=== PATIENT | female | born 1950 | race Caucasian/White ===

== ENCOUNTER → 2017-03-21 | Outpatient (CLI) | payer OTHER, BC ==
[~2017-03-21] MED LIST: ALBUAER19 INH; ALFA650T2 PO; ASCO100061 PO; ASMANEX 220 MCG INH; ASPCH81X PO; ATEN-173 PO; CETI10TA84 PO; CPR500 PO; ECHINACEA PO; FLUT1INH PO; GARL10007 PO; IPRASOL4 INH; LORA-741 PO; MONT1TAB5 PO; MULTTAB58 PO; ONDA4TAB46 PO; PRED-301 PO; RIVA1TAB4 PO; XRL15 PO; [UNRECOGNIZED DRUG - OTHER] PO
--- NOTE | 2017-03-21 12:10 | DIAGNOSTIC IMAGING REPORT ---
CHEST 2 VIEWS ROUTINE CLINICAL HISTORY: R50.9 [id number] Cough COMPARISON STUDY: 03/10/2015 FINDINGS: The cardiac and mediastinal contours remain stable. There is a calcified granuloma within the left midlung zone. There is chronic blunting of the right lateral costophrenic angle. This remains unchanged and likely represents scar. There is no failure. There are no pleural effusions.[ IMPRESSION: No active disease in the chest. Electronically signed by: Miguel Angel Garcia M.D. 03/21/2017 12:08 PM Dictated Date/Time: 03/21/2017 12:08 PM
== END | disposition home or self-care (01) ==
LOC: C.LABBC 11:50
PROVIDERS: ATTEND Internal Medicine
DX: R50.9 Fever, unspecified (principal); R05 Cough

== ENCOUNTER → 2017-04-24 | Outpatient (CLI) | payer OTHER, BC ==
[~2017-04-24] MED LIST changes: -FLUT1INH PO; -PRED-301 PO; -RIVA1TAB4 PO; -XRL15 PO
[2017-04-24 15:40] LABS: HEMATOCRIT 35.3 % (37-47); MEAN CELL VOLUME 98.6 fL (80-100); MEAN CORPUSCULAR HEMOGLOBIN 32.7 pg (25-34); MEAN CORPUSCULAR HGB CONC 33.1 g/dl (32-36); MEAN PLATELET VOLUME 10.6 fL (7.4-10.4); PLATELET COUNT 174 K/uL (130-400); RED BLOOD COUNT 3.58 M/uL (4.2-5.4); WHITE BLOOD COUNT 53.88 K/uL (4.8-10.8)
[2017-04-24 16:32] LABS: COMPLETE YES; LYMPH ABS # 50.16 K/uL (1.2-3.4); LYMPHOCYTE % 93.1 %; NEUTROPHILS % 2.6 %
[2017-04-24 16:42] LABS: IMMUNOGLOBULN A 93.5 mg/dL (70-400); IMMUNOGLOBULN M 13.2 mg/dL (40-230); SMUDGE CELLS PRESENT
--- NOTE | 2017-04-29 09:45 | CODING QUERY MEDICAL NECESSITY ---
SUPPORTING DIAGNOSIS NEEDED Dr. Payne, A supporting diagnosis is required for the test/procedure performed on this patient in order for us to be reimbursed by the patient's insurance. Please provide a supporting diagnosis for the following test/procedure listed below next to the test name along with your signature. *If there is no additional diagnosis for this patient that would support the following test/procedure please document that below next to the test/procedure. Test(s)/Procedure(s) that require a supporting diagnosis: * ([id number]) IMMUNOGLOBULIN E DIAGNOSIS: DATE OF SERVICE: 04/24/17 Provider Signature: Date: Thank you [facility] Information Management Once completed, please kindly fax back to [phone] For questions please call [phone]
== END | disposition home or self-care (01) ==
LOC: C.LAB1850 13:29
PROVIDERS: ATTEND Internal Medicine Pulmonary Disease
DX: C91.10 Chronic lymphocytic leukemia of B-cell type not having achieved remission (principal); R91.1 Solitary pulmonary nodule; R05 Cough; J45.909 Unspecified asthma, uncomplicated; M19.90 Unspecified osteoarthritis, unspecified site; D80.3 Selective deficiency of immunoglobulin G [IgG] subclasses

== ENCOUNTER → 2017-05-02 | Outpatient (CLI) | payer OTHER, BC ==
[2017-05-02 10:18] LABS: ALT/SGPT 30 U/L (12-78); AST/SGOT 20 U/L (15-37); BLOOD UREA NITROGEN 7 mg/dl (7-18); BUN/CREATININE RATIO 12.3 (10-20); CALCIUM 9.4 mg/dl (8.5-10.1); CARBON DIOXIDE 31 mmol/L (21-32); CHLORIDE 97 mmol/L (98-107); CREATININE 0.55 mg/dl (0.60-1.20); GLUCOSE 80 mg/dl (70-99); POTASSIUM 4.2 mmol/L (3.5-5.1); SODIUM 133 mmol/L (136-145)
[2017-05-02 10:29] LABS: ALB/GLOB RATIO 1.7 (0.9-2); ALKALINE PHOSPHATASE 63 U/L (45-117); CHOLESTEROL 193 mg/dl (0-200); CHOLESTEROL/HDL RATIO 2.2; HDL CHOLESTEROL 89 mg/dl; LDL CHOLESTEROL CALCULATED 95 mg/dl; TRIGLYCERIDES 44 mg/dl (0-150); VERY LOW DENSITY LIPOPROT CALC 9 mg/dl
== END | disposition home or self-care (01) ==
LOC: C.LAB 08:53
PROVIDERS: ATTEND Internal Medicine
DX: M85.80 Other specified disorders of bone density and structure, unspecified site (principal)

== ENCOUNTER → 2017-05-13 | Outpatient (CLI) | payer OTHER, BC | END | disposition home or self-care (01) | LOC: C.MAMM 08:25 | PROVIDERS: ATTEND Internal Medicine | DX: M85.89 Other specified disorders of bone density and structure, multiple sites (principal) ==

== ENCOUNTER → 2017-06-25 | Outpatient (CLI) | payer OTHER, BC ==
[2017-06-25 12:45] LABS: PROTHROMBIN TIME (PATIENT) 10.8 SECONDS (9.0-12.0)
[2017-06-25 12:54] LABS: ALB/GLOB RATIO 1.3 (0.9-2); ALKALINE PHOSPHATASE 50 U/L (45-117); ALT/SGPT 21 U/L (12-78); AST/SGOT 18 U/L (15-37); BLOOD UREA NITROGEN 8 mg/dl (7-18); CALCIUM 8.6 mg/dl (8.5-10.1); CARBON DIOXIDE 29 mmol/L (21-32); CHLORIDE 96 mmol/L (98-107); CREATININE 0.53 mg/dl (0.60-1.20); GLUCOSE 58 mg/dl (70-99); SODIUM 130 mmol/L (136-145)
[2017-06-25 13:22] LABS: MEAN CELL VOLUME 98.5 fL (80-100); MEAN CORPUSCULAR HEMOGLOBIN 33.5 pg (25-34); MEAN CORPUSCULAR HGB CONC 34.1 g/dl (32-36); MEAN PLATELET VOLUME 10.3 fL (7.4-10.4); PLATELET COUNT 167 K/uL (130-400); RED BLOOD COUNT 3.25 M/uL (4.2-5.4); WHITE BLOOD COUNT 40.24 K/uL (4.8-10.8)
[2017-06-25 13:29] LABS: BASO % 0.1 %; BASO ABS # 0.05 K/uL (0-0.2); COMPLETE YES; EOS % 0.2 %; LYMPH % 96.8 %; LYMPH ABS # 38.96 K/uL (1.2-3.4); NEUT % 2.9 %
== END | disposition home or self-care (01) ==
LOC: C.LAB 09:49
PROVIDERS: ATTEND Internal Medicine Pulmonary Disease
DX: R91.1 Solitary pulmonary nodule (principal)

== ENCOUNTER → 2017-06-30 | Outpatient (CLI) | payer OTHER, BC ==
[~2017-06-30] MED LIST changes: +OPTIRAY 320 IV PRN
--- NOTE | 2017-06-30 15:35 | DIAGNOSTIC IMAGING REPORT ---
CT SCAN OF THE CHEST WITH IV CONTRAST CLINICAL HISTORY: Pulmonary nodule. Dyspnea. COMPARISON STUDY: Chest CT scan dated 07/08/2013 and 12/19/2006. Chest x-ray dated 03/21/2017. TECHNIQUE: Following the IV administration of 94 cc of Optiray 320, CT scan of the thorax was performed from the thoracic inlet to the upper abdomen. Images are reviewed in the axial, sagittal, and coronal planes. IV contrast was administered without complication. A dose lowering technique was utilized adhering to the principles of ALARA. CT DOSE: 185.25 mGycm FINDINGS: Thyroid: Imaged portions of the thyroid gland are normal in size and attenuation. Thoracic aorta: The thoracic aorta is normal in caliber and demonstrates standard 3-vessel arch anatomy. No dissection is seen. Pulmonary vasculature: The pulmonary trunk is normal in caliber. There are no filling defects identified in the central pulmonary vessels to indicate pulmonary embolus. Note that this examination was not protocoled for evaluation of the pulmonary arteries. Heart: The heart is enlarged and there is trace pericardial effusion. There are coronary artery calcifications. Lungs and pleural spaces: There is consolidative change seen within the right middle lobe on image #166. The lungs are otherwise clear. No pleural effusion is identified. A calcified granuloma is seen in the left lower lobe. The trachea and central airways Are clear. Mediastinum: There are scattered subcentimeter mediastinal lymph nodes. These are not pathologically enlarged by size criteria. There is a calcified subcarinal node. Rose: Prominent right hilar nodes measure 11 mm in short axis.. There are calcified left hilar nodes. Axillae: There are shotty axillary lymph nodes which measure up to 11 mm in short axis. These are similar to the 2013 examination. Upper abdomen: Partially visualized upper abdominal viscera is within normal limits. Skeletal structures: The skeletal structures are osteopenic. Degenerative change is noted throughout the thoracic spine. No lytic or blastic bony lesions are seen. Postoperative change is noted in the right shoulder. IMPRESSION: 1. There is a small region of patchy airspace consolidation identified in the right middle lobe, likely representing an infectious/inflammatory pneumonitis. Precautionary 3 month follow-up examination is recommended to document resolution. 2. The lungs are otherwise clear. No pleural effusion is identified. 3. Cardiomegaly. 4. Additional findings as above. Electronically signed by: Henri Barrera M.D. 06/30/2017 3:34 PM Dictated Date/Time: 06/30/2017 3:26 PM
== END | disposition home or self-care (01) ==
LOC: C.CTS 15:09
PROVIDERS: ATTEND Internal Medicine Pulmonary Disease
DX: R91.1 Solitary pulmonary nodule (principal); I51.7 Cardiomegaly; R91.8 Other nonspecific abnormal finding of lung field

== ENCOUNTER → 2017-07-01 | Day surgery (SDC) | payer OTHER, BC ==
[~2017-07-01] VITALS: Ht 157.5 cm; Wt 64.0 kg
[2017-07-01] VITALS (14 sets, daily range): BP systolic 109–160; BP diastolic 50–84; PULSE 52–65; TEMP 36.4; O2SAT 93–100; Ht 157.5 cm; Wt 64.0 kg
[~2017-07-01] MED LIST changes: +FENTANYL CITRATE INJ 50 MCG/1 ML 2 ML VIAL IV ONE; +LORAZEPAM 2 MG/ML 1 ML VIAL ONE; +NURSING VERBAL MED ORDER ONE; -OPTIRAY 320 IV PRN
--- NOTE | 2017-07-01 06:50 | History and Physical ---
History & Physical Date Jul 01, 2017. Chief Complaint Acute onset upper respiratory type infections in immuno incompetent patient with new CT changes/right middle lobe infiltrate History of Present Illness The patient is a 66 year old female with complaints of Acute onset upper respiratory type infections in immuno incompetent patient with new CT changes/ right middle lobe infiltrate 66-year-old female patient with a history of CLL, GERD and asthma. 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 Avalos who wishes to start her and has scheduled her for an IVIG infusion. She is in agreement as IM to start this therapy. Just this past week she developed an upper respiratory infection and feels tight in her chest. She feels she has a great deal of mucus plugging. She has not responded to antibiotic and prednisone here nor to the use of her nebulizer with DuoNeb solution and the Asmanex twist haler. Chest x-ray on 03/21/2017 showed no acute infiltrate PFTs on 05/22/2017 show moderate obstruction and definite decrease in patient's lung function compared to 2 years ago. The FVC is 1.73 L or 66% of predicted with an FEV1 1.31 L or 63% of predicted with a ratio of 76%. Good response to bronchodilator was shown. Total lung capacity was borderline forced vital capacity was 2.42 L or 93% of predicted with an FEV1 of 1.91 L 92% predicted in June 2015. Past Medical/Surgical History Active Problems 1. Allergic rhinitis 2. Arthritis 3. Asthma 4. Chronic lymphocytic leukemia 5. GERD without esophagitis 6. Hypertension 7. IgG deficiency 8. IgM deficiency 9. Osteopenia 10. 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 Endometriosis 13. Herpes zoster 14. Hypertrophy of breast 15. History of Shiga toxin-producing Escherichia Surgical History 1. History of Appendectomy 2. History of Breast Surgery Reduction Procedure Bilateral 3. History of Breast Surgery Reduction Procedure Bilateral 4. History of Foot Surgery 5. History of Hallux Valgus (Bunion) Correction 6. History of Laparoscopy (Diagnostic) 7. History of Tonsillectomy 8. History of Vaginal Hysterectomy Family History 1. Family history of Colon Cancer 2. Family history of Uterine Cancer 3. Family history of Prostate Cancer 4. Family history of Colon Cancer 5. Denied: Family history of Breast Cancer 6. 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 Asmanex 60 Metered Doses 220 MCG/INH Inhalation Aerosol Powder Breath Activated; 2. Montelukast Sodium 10 MG Oral Tablet; TAKE ONE TABLET BY MOUTH EVERY OTHER 3. PredniSONE 10 MG Oral Tablet; taper 4. Ventolin HFA 108 (90 Base) MCG/ACT Inhalation Aerosol Solution; inhale 2 puffs every 6 5. Atenolol 25 MG Oral Tablet; Take 1 tablet daily Requested for: [id number]; Last 6. Indapamide 1.25 MG Oral Tablet; TAKE 1 TABLET EVERY AM; 7. LORazepam 0.5 MG Oral Tablet; TAKE 1 TABLET Bedtime PRN; 8. Ballard 650 MG Oral Tablet; TAKE 3 TABLETS DAILY; 9. Aspirin Low Dose 81 MG TABS; TAKE 1 TABLET Every other day; 10. CVS Vitamin C 1000 MG Oral Tablet; TAKE 30 TABLET Daily TDD:30,000; 11. DuoNeb SOLN; 12. Garlic 1000 MG Oral Capsule; TAKE 1 CAPSULE Daily; 13. Melatonin 3 MG Oral Capsule; TAKE 1 CAPSULE AT BEDTIME NEEDED; 14. Posture-D Calcium/Magnesium [phone] Oral Tablet; TAKE 3 TABLET Daily; 15. Probiotic Oral Capsule; Take 1 capsule PO daily; 16. Vitamin D3 5000 UNIT Oral Tablet; Take 1 tablet daily; 17. Vitamin E 400 UNIT Oral Tablet; TAKE 1 TABLET DAILY; 18. Zyrtec 10 MG TABS; TAKE 1 TABLET DAILY; Allergies 1. Chlorthalidone TABS 2. Erythromycin TABS 3. Chocolate 4. Dairy 5. Eggs 6. Grains Additional History Hepatic Disease: No Endocrine Disorder: No Kidney Disease: No Hypertension: Yes Heart Disease: No Bleeding Tendencies: No Infectious Diseases: No Allergies Coded Allergies: Molds & Smuts (Verified Allergy, Severe, SOB, itchy, watery eyes, 02/22/14) Cat Dander (Verified Allergy, Mild, itchy, watery eyes, 02/22/14) Chlorthalidone (Verified Allergy, Unknown, Dizzy, light headed, 03/10/15) Erythromycin (Verified Adverse Reaction, Intermediate, NAUSEA / VOMITING, 02/22/14) Lactose Intolerance (Verified Adverse Reaction, Unknown, GI SYMPTOMS, 02/22) Home Medications Scheduled Ballard (Ballard), 3 TABLETS PO DAILY Ascorbic Acid (Ascorbic Acid), 30,000 MG PO DAILY Aspirin (Aspirin Chewable), 81 MG PO QOD Atenolol (Tenormin), 25 MG PO DAILY Cetirizine (Zyrtec), 10 MG PO QOD Ciprofloxacin (Ciprofloxacin HCl), 500 MG PO Q12 Garlic (Garlic), 1,000 MG PO DAILY Montelukast Sodium (Montelukast Sodium), 10 MG PO Q2D Multiple Vitamin (Multivitamin), 1 TAB PO DAILY [Asmanex 220 Mcg], 1 PUFFS INH BID [Calcimate Plus], 2,400 MG PO DAILY [Echinacea], 750 MG PO DAILY Scheduled PRN Albuterol Inhaler (Ventolin Inhaler), 2 PUFFS INH Q6 PRN Ipratropium-Albuterol (Duoneb), 1 TREATMENT INH Q4H PRN for CONGESTION Lorazepam (Ativan), 0.5 MG PO HS PRN for Sleep Ondansetron Hcl (Zofran), 4 MG PO Q6H PRN for Nausea Physical Examination Skin: warm/dry, no rash Eyes: normal inspection, EOMI, sclerae normal ENT: normal ENT inspection, pharynx normal Head: normocephalic, atraumatic Neck: supple, no adenopathy, trachea midline Respiratory/Chest: lungs clear, normal breath sounds, no respiratory distress Cardiovascular: regular rate, rhythm, no edema, no murmur Abdomen / GI: normal bowel sounds, non tender Back: normal inspection Extremities: normal inspection, normal range of motion Neurologic/Psych: no motor/sensory deficits, alert, normal reflexes, oriented x 3 Diagnosis Immuno incompetent patient with acute URI and new onset pulmonary nodule Plan of Treatment Flexible bronchoscopy with bronchial washing and possible intrabronchial forcep biopsy cryoprobe biopsy
--- NOTE | 2017-07-01 09:19 | History & Physical Bridge Note ---
H&P Re-Evaluation Bridge Note: I have examined the patient, reviewed the History & Physical and in the interval since the performance of the History & Physical I have noted the following changes of clinical significance: No changes noted
--- NOTE | 2017-07-01 09:19 | Procedure Note ---
Pre-Mod Sedation Assessment General Date of Moderate Sedation: Jul 01, 2017. Vital Signs: Vital Signs Past 12 Hours Date Time Temp Pulse Resp B/P (MAP) Pulse Ox O2 Delivery O2 Flow Rate FiO2 07/01/17 08:28 36.4 60 18 124/62 (82) 98 Room Air Review Cardiovascular: regular rate, rhythm, no edema, no gallop, no JVD, no murmur, normal peripheral pulses Abdomen: normal bowel sounds, non tender, soft, no organomegaly, no pulsatile mass Lungs: chest non-tender, lungs clear, normal breath sounds, no respiratory distress, no accessory muscle use Airway Class: II Pre-Sedation Airway Assessment Oral Cavity: WNL Able to Visualize Vocal Cords: Yes Short Thick Neck: No Hx of Sleep Apnea: No Smoking Status: Never Smoker Mallampati Classification: Class III ASA Classification: Class III Procedure Planning Contraindications-for Mod Sed: None Yes Notes The planned sedation has been discussed with the patient and consent obtained. I have identified the patient, determined the appropriateness of sedation and have assessed the patient immediately prior to the procedure. All medicine(s) and interventions are by my order.
--- NOTE | 2017-07-01 10:07 | Bronchoscopy Procedure Note ---
Bronchoscopy Procedure Note Procedure: Bronchoscopy, conscious sedation, bronchial lavage right middle lobe Consent: Obtained through the patient placed into the chart Pre-procedural diagnosis: Chronic cough with productive sputum Post-procedural diagnosis: Chronic cough with productive sputum Start time: 939 End time: 956 Total time: 17 minutes Analgesia: 2% liquid lidocaine: Via nebulizer 4% gel lidocaine: Via right naris 2% liquid lidocaine: Via bronchoscopy Sedation: Ativan IV: 2mg Fentanyl IV: 50 g Procedure: The Olympus video bronchoscope was used for this procedure and passed down through the right naris Right naris/posterior naris/posterior oropharynx: No redundant tissue in the anterior oropharynx Glottis: Anatomically within normal limits Vocal cords: Proper abduction and abduction, anatomically within normal limits Subglottis/trachea/Vicki: Anatomically within normal limits Right bronchial tree: Right mainstem bronchus: Anatomically within normal limits Right upper lobe: Anatomically within normal limits Bronchus intermedius: Anatomically within normal limits Right middle lobe: Anatomically within normal limits Right lower lobe: Anatomically within normal limits Findings: No significant findings noted Left bronchial tree: Left mainstem bronchus: Anatomically within normal limits Left upper lobe: Anatomically within normal limits Lingula: Anatomically within normal limits Left lower lobe: Anatomically within normal limits Findings: No significant findings noted Bronchial alveolar lavage: Right middle lobe EBL: None Complications: None Follow-up: In the [facility]
--- NOTE | 2017-07-01 10:11 | Discharge Instructions ---
Discharge Instructions Date of Service Jul 01, 2017. Admission Reason for Admission: Pulmonary Nodule, Asthma Discharge Discharge Diagnosis / Problem: chronic productive cough with history of CLL and new right middle lobe nodu Discharge Goals Goal(s): Diagnostic testing Activity Recommendations Activity Limitations: resume your previous activity . Instructions / Follow-Up Instructions / Follow-Up Follow-up with Dr. Peyman Payne at the [facility] pulmonary clinic Current Hospital Diet Patient's current hospital diet: Discharge Diet Recommended Diet: Regular Diet Procedures Procedures Performed: Bronchoscopy, conscious sedation and bronchial lavage of the right middle lobe Pending Studies Studies pending at discharge: no Laboratory Results Lipid Panel Test 05/02/17 09:13 Range/Units Triglycerides Level 44 0-150 mg/dl Cholesterol Level 193 0-200 mg/dl HDL Cholesterol 89 mg/dl Cholesterol/HDL Ratio 2.2 LDL Cholesterol, Calculated 95 mg/dl Medical Emergencies . Who to Call and When: Medical Emergencies: If at any time you feel your situation is an emergency, please call 911 immediately. . Non-Emergent Contact Non-Emergency issues call your: Refresh Technician . . "Provider Documentation" section prepared by Arnaldo Lloyd. . VTE Core Measure Inpt VTE Proph given/why not?: Treatment not indicated
== END | disposition home or self-care (01) ==
LOC: C.ACU 07:31
PROVIDERS: ATTEND Internal Medicine Critical Care Medicine
DX: R05 Cough (principal); K21.9 Gastro-esophageal reflux disease without esophagitis; R91.1 Solitary pulmonary nodule; J45.909 Unspecified asthma, uncomplicated; I10 Essential (primary) hypertension; Z98.890 Other specified postprocedural states; Z79.82 Long term (current) use of aspirin; Z79.899 Other long term (current) drug therapy; Z91.012 Allergy to eggs; Z91.011 Allergy to milk products; Z88.1 Allergy status to other antibiotic agents; Z90.89 Acquired absence of other organs; Z90.710 Acquired absence of both cervix and uterus; Z80.0 Family history of malignant neoplasm of digestive organs

== ENCOUNTER → 2017-07-18 | Outpatient (CLI) | payer OTHER, BC ==
[~2017-07-18] MED LIST changes: -CPR500 PO; -FENTANYL CITRATE INJ 50 MCG/1 ML 2 ML VIAL IV ONE; +FLUT1INH PO; -LORAZEPAM 2 MG/ML 1 ML VIAL ONE; -NURSING VERBAL MED ORDER ONE; +PRED-301 PO; +RIVA1TAB4 PO; +XRL15 PO
[2017-07-18 14:54] LABS: MANUAL MICROSCOPIC REQUIRED? NO; REVIEW REQ? NO; URINE APPEARANCE CLEAR (CLEAR); URINE BILIRUBIN NEG (NEG); URINE COLOR YELLOW; URINE EPITHELIAL CELL AUTO 0-5 /lpf (0-5); URINE NITRITE NEG (NEG); URINE SPECIFIC GRAVITY 1.008 (1.000-1.030); UROBILINOGEN NEG (NEG); ZZUR CULT IF INDIC CLEAN CATCH NO
== END | disposition home or self-care (01) ==
LOC: C.LAB 13:33
PROVIDERS: ATTEND Internal Medicine
DX: R39.9 Unspecified symptoms and signs involving the genitourinary system (principal)

== ENCOUNTER 2017-07-22 01:11 | Observation (INO) | payer OTHER, BC ==
[2017-07-22] VITALS (7 sets, daily range): BP systolic 112–153; BP diastolic 64–93; PULSE 62–105; TEMP 36.6–36.8; O2SAT 94–100; Ht 157.5 cm; Wt 66.6 kg
[~2017-07-22] VITALS: Ht 157.5 cm; Wt 66.6 kg
[~2017-07-22 01:11] MED LIST changes: -FLUT1INH PO; -PRED-301 PO; -RIVA1TAB4 PO; -XRL15 PO
--- NOTE | 2017-07-22 01:56 | EMERGENCY ROOM VISIT NOTE ---
History Report prepared by Ta: Chavez Fung Under the Supervision of: Dr. Any Ascencio D.O. First contact with patient: 01:20 Chief Complaint: IRREGULAR HEARTBEAT Stated Complaint: IRREGULAR HEARTBEAT History of Present Illness The patient is a 66 year old female who presents to the Emergency Room with complaints of constant irregular heartbeat starting around 2230. She states that she felt her heart rate being very irregular and tried to go to bed, but it did not go away. Then she drank some tea, and then decided to come to the ED for evaluation. She states that she has been having some chest pressure though no real pain, and she has been having some shortness of breath, nausea, and light headedness. The patient has an extensive medical history, and she gets IVIG every four weeks for CLL. She also states that she had recurring pneumonia over the summer, and she is currently on prednisone, and she just finished Levaquin. She states that she has recently had a bronchoscopy and a UA done, and they were normal. The patient states that she has also had some episodes of similar symptoms over the summer. She has a family history of A-fib and blood clots. She denies any problems with her thyroid. Pt denies leg swelling, headache, change in vision, fevers, vomiting, diarrhea, pain with urination, and melena. Source of History: patient Onset: 2229 Position: other (heart) Quality: other (irregular heartbeat) Timing: constant Associated Symptoms: + SOB, + nausea Note: Associated symptoms: Lightheadedness Review of Systems See HPI for pertinent positives & negatives. A total of 10 systems reviewed and were otherwise negative. Past Medical & Surgical Medical Problems: (1) Atrial fibrillation with RVR (2) CLL (chronic lymphocytic leukemia) (3) Colitis presumed infectious (4) Hypertension Surgical Problems: (1) S/P appendectomy (2) S/P hysterectomy Family History Cancer Heart disease Hypertension Social History Smoking Status: Never Smoker Alcohol Use: occasionally Drug Use: none Marital Status: Housing Status: lives with significant other Occupation Status: employed Current/Historical Medications Scheduled Meade (Meade), 3 TABLETS PO DAILY Ascorbic Acid (Ascorbic Acid), 30,000 MG PO DAILY Aspirin (Aspirin Chewable), 81 MG PO QOD Atenolol (Tenormin), 25 MG PO BID Cetirizine (Zyrtec), 10 MG PO DAILY Fluticasone Furoate-Vilanterol (Breo Ellipta), 1 INHA PO DAILY Garlic (Garlic), 1,000 MG PO DAILY Ipratropium-Albuterol (Duoneb), 1 TREATMENT INH TID Montelukast Sodium (Montelukast Sodium), 10 MG PO Q2D Multiple Vitamin (Multivitamin), 1 TAB PO DAILY Prednisone (Prednisone), 5 MG PO UD Rivaroxaban (Xarelto), 20 MG PO DAILY [Calcimate Plus], 2,400 MG PO DAILY [Echinacea], 750 MG PO DAILY Scheduled PRN Albuterol Inhaler (Ventolin Inhaler), 2 PUFFS INH Q6 PRN Lorazepam (Ativan), 0.5 MG PO HS PRN for Sleep Ondansetron Hcl (Zofran), 4 MG PO Q6H PRN for Nausea Allergies Coded Allergies: Molds & Smuts (Verified Allergy, Severe, SOB, itchy, watery eyes, 07/22/17 ) Cat Dander (Verified Allergy, Mild, itchy, watery eyes, 07/22/17) Chlorthalidone (Verified Allergy, Unknown, Dizzy, light headed, 07/22/17) Erythromycin (Verified Adverse Reaction, Intermediate, NAUSEA / VOMITING, 07/22/17) Lactose Intolerance (Verified Adverse Reaction, Unknown, GI SYMPTOMS, ) Physical Exam Vital Signs Date Time Temp Pulse Resp B/P (MAP) Pulse Ox O2 Delivery O2 Flow Rate FiO2 07/22/17 04:31 135/89 07/22/17 04:16 90 17 96 07/22/17 04:09 124/82 07/22/17 04:05 120/79 07/22/17 04:02 120 110/76 07/22/17 04:01 92 16 110/76 93 07/22/17 03:57 111/76 07/22/17 03:46 106 16 95 07/22/17 03:31 104 17 118/87 90 07/22/17 03:26 79 17 97 07/22/17 03:01 127/74 07/22/17 02:56 91 17 98 07/22/17 02:50 134/76 07/22/17 02:31 125/83 07/22/17 02:26 84 19 95 07/22/17 02:25 87 19 144/87 95 Room Air 07/22/17 02:20 144/87 07/22/17 02:11 91 18 94 07/22/17 01:56 87 19 94 07/22/17 01:41 89 20 88 07/22/17 01:36 97 Room Air 07/22/17 01:32 82 07/22/17 01:24 167/89 07/22/17 01:16 36.5 91 18 152/83 99 Room Air Physical Exam GENERAL: alert, well appearing, well nourished, no distress, non-toxic EYE EXAM: normal conjunctiva, PERRL and EOM's grossly intact OROPHARYNX: no exudate, no erythema, lips, buccal mucosa, and tongue normal and mucous membranes are moist NECK: supple, no nuchal rigidity, no adenopathy, non-tender LUNGS: Clear to auscultation. Normal chest wall mechanics HEART: Irregular and intermittently tachycardic. ABDOMEN: abdomen soft, non-tender, normo-active bowel sounds, no masses, no rebound or guarding. BACK: Back is symmetrical on inspection and there is no deformity, no midline tenderness, no CVA tenderness. SKIN: no rashes and no bruising UPPER EXTREMITIES: upper extremities are grossly normal. LOWER EXTREMITIES: No pitting edema. NEURO EXAM: Normal sensorium, cranial nerves II-XII grossly intact, normal speech, no gross weakness of arms, no gross weakness of legs. Gross sensation intact. Medical Decision & Procedures ER Provider Diagnostic Interpretation: X-ray results have been interpreted by me. CHEST ONE VIEW PORTABLE: No cardiomegaly. No effusions. No wide mediastinum. No focal infiltrate. Radiology results have been interpreted by the radiologist and reviewed by me. CTA CHEST: No evidence of pulmonary embolus. Cardiomegaly with moderate enlargement of left atrium. Lungs demonstrate mild mosaic attenuation which is may be related to air trapping. Other considerations include pulmonary edema and there is mild interlobular septal thickening at the lung apices, suggesting possible mild component of CHF/fluid overload. No effusion. Calcified granuloma in the left lower lobe. Axillary lymph nodes are similar to prior CT 12/20/12, prominent but not significantly enlarged. Radiologist: Ramiro Camarillo MD Laboratory Results 07/22/17 01:30 Red Blood Count 3.76, Mean Corpuscular Volume 98.4, Mean Corpuscular Hemoglobin 33.5, Mean Corpuscular Hemoglobin Concent 34.1, Mean Platelet Volume 9.8, Neutrophils (%) (Auto) 3.5, Lymphocytes (%) (Auto) 95.3, Monocytes (%) (Auto) 0.8, Eosinophils (%) (Auto) 0.1, Basophils (%) (Auto) 0.2, Neutrophils # (Auto) 2.19, Lymphocytes # (Auto) 61.00, Monocytes # (Auto) 0.54, Eosinophils # (Auto) 0.09, Basophils # (Auto) 0.11 07/22/17 01:30 Test 07/22/17 01:30 07/22/17 01:38 07/22/17 01:55 White Blood Count 64.01 K/uL (4.8-10.8) Red Blood Count 3.76 M/uL (4.2-5.4) Hemoglobin 12.6 g/dL (12.0-16.0) Hematocrit 37.0 % (37-47) Mean Corpuscular Volume 98.4 fL (80-100) Mean Corpuscular Hemoglobin 33.5 pg (25-34) Mean Corpuscular Hemoglobin Concent 34.1 g/dl (32-36) Platelet Count 208 K/uL (130-400) Mean Platelet Volume 9.8 fL (7.4-10.4) Neutrophils (%) (Auto) 3.5 % Lymphocytes (%) (Auto) 95.3 % Monocytes (%) (Auto) 0.8 % Eosinophils (%) (Auto) 0.1 % Basophils (%) (Auto) 0.2 % Neutrophils # (Auto) 2.19 K/uL (1.4-6.5) Lymphocytes # (Auto) 61.00 K/uL (1.2-3.4) Monocytes # (Auto) 0.54 K/uL (0.11-0.59) Eosinophils # (Auto) 0.09 K/uL (0-0.5) Basophils # (Auto) 0.11 K/uL (0-0.2) RDW Standard Deviation 48.4 fL (36.4-46.3) RDW Coefficient of Variation 13.7 % (11.5-14.5) Immature Granulocyte % (Auto) 0.1 % Immature Granulocyte # (Auto) 0.08 K/uL (0.00-0.02) Smudge Cells PRESENT Prothrombin Time 10.6 SECONDS (9.0-12.0) Prothromb Time International Ratio 1.0 (0.9-1.1) D-Dimer 670 ug/L FEU (0-500) Anion Gap 8.0 mmol/L (3-11) Est Creatinine Clear Calc Drug Dose 77.6 ml/min Estimated GFR () 108.5 Estimated GFR (Non- 93.6 BUN/Creatinine Ratio 15.2 (10-20) Calcium Level 8.8 mg/dl (8.5-10.1) Magnesium Level 2.4 mg/dl (1.8-2.4) Total Bilirubin 0.4 mg/dl (0.2-1) Aspartate Amino Transf (AST/SGOT) 17 U/L (15-37) Alanine Aminotransferase (ALT/SGPT) 25 U/L (12-78) Alkaline Phosphatase 54 U/L (45-117) Troponin I < 0.015 ng/ml (0-0.045) Pro-B-Type Natriuretic Peptide 458 pg/ml (0-900) Total Protein 7.7 gm/dl (6.4-8.2) Albumin 4.4 gm/dl (3.4-5.0) Globulin 3.3 gm/dl (2.5-4.0) Albumin/Globulin Ratio 1.3 (0.9-2) Thyroid Stimulating Hormone (TSH) 2.470 uIu/ml (0.300-4.500) Urine Color YELLOW Urine Appearance CLEAR (CLEAR) Urine pH 8.0 (4.5-7.5) Urine Specific [place] 1.008 (1.000-1.030) Urine Protein NEG (NEG) Urine Glucose (UA) NEG (NEG) Urine Ketones NEG (NEG) Urine Occult Blood NEG (NEG) Urine Nitrite NEG (NEG) Urine Bilirubin NEG (NEG) Urine Urobilinogen NEG (NEG) Urine Leukocyte Esterase NEG (NEG) Lactic Acid Level 0.6 mmol/L (0.4-2.0) Laboratory results per my review. Medications Administered Medications (Trade) Dose Ordered Sig/Lauren Route Start Time Stop Time Status Last Admin Dose Admin Sodium Chloride 1,000 ml @ 250 mls/hr Q4H STAT IV 07/22/17 02:16 07/22/17 05:02 DC 07/22/17 02:25 250 MLS/HR Metoprolol Tartrate (Lopressor Iv) 5 mg NOW STAT IV 07/22/17 03:52 07/22/17 03:53 DC 07/22/17 04:02 5 MG Acetaminophen (Tylenol Tab) 650 mg Q4H PRN PO 07/22/17 04:30 07/22/17 17:56 DC 07/22/17 14:52 650 MG ECG Indication: other (irregular heartbeat) Rate (beats per minute): 88 Rhythm: atrial fibrillation Findings: no acute ischemic change, other (Normal QRS and QTc) ED Course 0120: The patient was evaluated in room A11. A complete history and physical exam was performed. 0216: Sodium Chloride 1000 ml @ 250 mls/hr IV 0336: I reevaluated the patient, and I updated her on the treatment plan, and she was agreeable. 0352: Lopressor IV 5mg IV 0401: I reviewed the patient's case with Dr. Carlos. He will evaluate the patient for further management. Medical Decision Differential diagnosis: Etiologies such as premature contractions, electrolyte abnormality, cardiac dysrhythmia, thyroid dysfunction, pulmonary embolism, infection, gastrointestinal, as well as others were entertained. Pt with rate controlled afib likely contributing to sx. VS otw stable. Hx of CLL, last WBC 58 per pt, tonight 64. Doubt additional infectious etiology, no other focal sx. Pt low risk based on CHADS-Vasc2. Discussed anticoagulation with medicine, they will evaluate and discuss with pt. No evidence of thyroid storm. No evidence of PE, pneumonia/effusion. Pt admitted for additional evaluation and treatment. Medication Reconcilliation Current Medication List: was personally reviewed by me Blood Pressure Screening Patient's blood pressure: Normal blood pressure Consults Time Called: [phone] Consulting Physician: Dr. Carlos Returned Call: [phone] I reviewed the patient's case with Dr. Carlos. He will evaluate the patient for further management. Impression Primary Impression: New onset a-fib Additional Impression: Palpitations Scribe Attestation The scribe's documentation has been prepared under my direction and personally reviewed by me in its entirety. I confirm that the note above accurately reflects all work, treatment, procedures, and medical decision making performed by me. Departure Information Dispostion Being Evaluated By Hospitalist Prescriptions Rivaroxaban (XARELTO) 20 Mg Tab 20 MG PO DAILY for 30 Days, #30 TAB 1 Refill Prov: Wei Lozano M.D. 07/22/17 Atenolol (Tenormin) 25 Mg Tab 25 MG PO BID for 30 Days, #60 TAB 1 Refill TAKE 1 TABLET TWICE A DAY Prov: Wei Lozano M.D. 07/22/17 Referrals Alberto Mcnamara M.D. (PCP) Patient Instructions [facility] Problem Qualifiers
[2017-07-22 02:01] LABS: ALT/SGPT 25 U/L (12-78); AST/SGOT 17 U/L (15-37); BLOOD UREA NITROGEN 10 mg/dl (7-18); BUN/CREATININE RATIO 15.2 (10-20); CALCIUM 8.8 mg/dl (8.5-10.1); CARBON DIOXIDE 29 mmol/L (21-32); CHLORIDE 94 mmol/L (98-107); CREATININE 0.64 mg/dl (0.60-1.20); GLUCOSE 97 mg/dl (70-99); MAGNESIUM 2.4 mg/dl (1.8-2.4); POTASSIUM 3.2 mmol/L (3.5-5.1); SODIUM 131 mmol/L (136-145)
[2017-07-22 02:03] LABS: PROTHROMBIN TIME (PATIENT) 10.6 SECONDS (9.0-12.0)
[2017-07-22 02:12] LABS: ALB/GLOB RATIO 1.3 (0.9-2); ALKALINE PHOSPHATASE 54 U/L (45-117)
[2017-07-22] MEDS ORDERED: SODIUM CHLORIDE 0.9% 1000ML 1,000 ML IV STA (02:16)
[2017-07-22] MEDS ORDERED: FLUT1INH PO (02:30)
[2017-07-22] MEDS ORDERED: OPTIRAY 320 IV PRN (02:30)
[2017-07-22] MEDS ORDERED: PRED-301 PO (02:30)
[2017-07-22 02:34] LABS: MEAN CELL VOLUME 98.4 fL (80-100); MEAN CORPUSCULAR HEMOGLOBIN 33.5 pg (25-34); MEAN CORPUSCULAR HGB CONC 34.1 g/dl (32-36); MEAN PLATELET VOLUME 9.8 fL (7.4-10.4); PLATELET COUNT 208 K/uL (130-400); RED BLOOD COUNT 3.76 M/uL (4.2-5.4); WHITE BLOOD COUNT 64.01 K/uL (4.8-10.8)
[2017-07-22 02:38] LABS: MANUAL MICROSCOPIC REQUIRED? NO; REVIEW REQ? NO; URINE APPEARANCE CLEAR (CLEAR); URINE BILIRUBIN NEG (NEG); URINE COLOR YELLOW; URINE NITRITE NEG (NEG); URINE SPECIFIC GRAVITY 1.008 (1.000-1.030); UROBILINOGEN NEG (NEG); ZZUR CULT IF INDIC CLEAN CATCH NO
[2017-07-22 02:51] LABS: BASO % 0.2 %; BASO ABS # 0.11 K/uL (0-0.2); COMPLETE YES; EOS % 0.1 %; IG% 0.1 %; LYMPH % 95.3 %; MONO % 0.8 %; NEUT % 3.5 %; SMUDGE CELLS PRESENT
[2017-07-22] MEDS ORDERED: METOPROLOL TARTRATE 1 MG/ML VIAL IV STA (03:52)
[2017-07-22] MEDS ORDERED: MAGNESIUM HYDROXIDE SUSP 30 ML UDC PO PRN (04:30)
[2017-07-22] MEDS ORDERED: MoRPHine SULFATE 2 MG/ML CARP IV PRN (04:30)
[2017-07-22] MEDS ORDERED: ALUMINUM/MAGNESIUM/SIMETH (MAALOX MAX) 30 ML UDC PO PRN (04:30)
[2017-07-22] MEDS ORDERED: ACETAMINOPHEN 325 MG TAB PO PRN (04:30)
[2017-07-22] MEDS ORDERED: IV FLUIDS COMPLETED PRN (04:45)
[2017-07-22] MEDS ORDERED: LORAZEPAM 0.5 MG TAB PO PRN (04:45)
--- NOTE | 2017-07-22 05:07 | History and Physical ---
History & Physical Date & Time of Service: Jul 22, 2017 at 04:48 Chief Complaint: Irregular Heartbeat Primary Care Physician: Alberto Mcnamara M.D. History of Present Illness Source: patient 66 y/o F Hx CLL, IgG/IgM deficiency, asthma. Pt presents with a chief compliant of palpitations. Has not had CP, SOB, n/v or diaphoresis. On arrival to the ER a diagnosis of new-onset AF was established with an initial rate of . Her rate responded has been consistently below 100, however, she describes persistent discomfort as she can feel the palpitations. Initial labs are notable for an elevated WBC count at 64 which is approximately 20 above her baseline. A D dimer was elevated and followed by a CTA which was negative for PE. Past Medical/Surgical History Active Problems 1. Allergic rhinitis 2. Arthritis 3. Asthma 4. Chronic lymphocytic leukemia 5. GERD without esophagitis 6. Hypertension 7. IgG deficiency 8. IgM deficiency 9. Osteopenia 10. 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 Endometriosis 13. Herpes zoster Surgical: Appendectomy, hysterectomy Family History Cancer Heart disease Hypertension Social History Smoking Status: Never Smoker Drug Use: none Marital Status: Housing status: lives with family Occupational Status: employed Immunizations History of Influenza Vaccine: Yes Influenza Vaccine Date: Jul 22, 2012 History of Tetanus Vaccine?: Yes History of Pneumococcal: Yes Pneumococcal Date: Dec 21, 2011 History of Hepatitis B Vaccine: Yes Hepatitis Immunization Date: Dec 20, 2010 Multi-Drug Resistant Organisms History of MDRO: No Allergies Coded Allergies: Molds & Smuts (Verified Allergy, Severe, SOB, itchy, watery eyes, 07/22/17 ) Cat Dander (Verified Allergy, Mild, itchy, watery eyes, 07/22/17) Chlorthalidone (Verified Allergy, Unknown, Dizzy, light headed, 07/22/17) Erythromycin (Verified Adverse Reaction, Intermediate, NAUSEA / VOMITING, 07/22/17) Lactose Intolerance (Verified Adverse Reaction, Unknown, GI SYMPTOMS, ) Home Medications Scheduled Carlton (Carlton), 3 TABLETS PO DAILY Ascorbic Acid (Ascorbic Acid), 30,000 MG PO DAILY Aspirin (Aspirin Chewable), 81 MG PO QOD Atenolol (Tenormin), 25 MG PO DAILY Cetirizine (Zyrtec), 10 MG PO DAILY Fluticasone Furoate-Vilanterol (Breo Ellipta), 1 INHA PO DAILY Garlic (Garlic), 1,000 MG PO DAILY Ipratropium-Albuterol (Duoneb), 1 TREATMENT INH TID Montelukast Sodium (Montelukast Sodium), 10 MG PO Q2D Multiple Vitamin (Multivitamin), 1 TAB PO DAILY Prednisone (Prednisone), 5 MG PO UD [Calcimate Plus], 2,400 MG PO DAILY [Echinacea], 750 MG PO DAILY Scheduled PRN Albuterol Inhaler (Ventolin Inhaler), 2 PUFFS INH Q6 PRN Lorazepam (Ativan), 0.5 MG PO HS PRN for Sleep Ondansetron Hcl (Zofran), 4 MG PO Q6H PRN for Nausea Review of Systems Constitutional: No fever, No chills, No sweats Eyes: No worsening of vision ENT: No hearing loss, No unusual epistaxis, No nasal symptoms Respiratory: No cough, No sputum, No wheezing, No shortness of breath Cardiovascular: + palpitations, No chest pain Abdomen: No pain, No nausea, No vomiting Musculoskeletal: No joint pain Genitourinary - Female: No dysuria, No hematuria Neurologic: No memory loss, No paralysis, No weakness Psychiatric: No depression symptoms Endocrine: No fatigue Hematologic / Lymphatic: No abnormal bleeding/bruising Integumentary: No rash Allergic / Immunologic: No environmental allergies Physical Exam Vital Signs Date Time Temp Pulse Resp B/P (MAP) Pulse Ox O2 Delivery O2 Flow Rate FiO2 07/22/17 04:16 90 17 96 07/22/17 04:09 124/82 07/22/17 04:05 120/79 07/22/17 04:02 120 110/76 07/22/17 04:01 92 16 110/76 93 07/22/17 03:57 111/76 07/22/17 03:46 106 16 95 07/22/17 03:31 104 17 118/87 90 07/22/17 03:26 79 17 97 07/22/17 03:01 127/74 07/22/17 02:56 91 17 98 07/22/17 02:50 134/76 07/22/17 02:31 125/83 07/22/17 02:26 84 19 95 07/22/17 02:25 87 19 144/87 95 Room Air 07/22/17 02:20 144/87 07/22/17 02:11 91 18 94 07/22/17 01:56 87 19 94 07/22/17 01:41 89 20 88 07/22/17 01:36 97 Room Air 07/22/17 01:32 82 07/22/17 01:24 167/89 07/22/17 01:16 36.5 91 18 152/83 99 Room Air General Appearance: WD/WN, no apparent distress Head: normocephalic Eyes: normal inspection ENT: normal ENT inspection, pharynx normal Neck: supple, no JVD Respiratory/Chest: chest non-tender, lungs clear, normal breath sounds, no respiratory distress, no accessory muscle use Cardiovascular: no JVD, no murmur, + irregularly irregular Abdomen/GI: normal bowel sounds, non tender, soft Back: normal inspection, no CVA tenderness, no muscle spasm, normal range of motion Extremities/Musculoskelatal: normal inspection, no calf tenderness, normal capillary refill, no pedal edema, normal range of motion Neurologic/Psych: orientation & mobility specialist II-XII nml as tested, no motor/sensory deficits, alert, oriented x 3 Skin: normal color, warm/dry, no rash Diagnostics Laboratory Results Results Past 24 Hours Test 07/22/17 01:30 07/22/17 01:38 07/22/17 01:55 Range/Units White Blood Count 64.01 4.8-10.8 K/uL Red Blood Count 3.76 4.2-5.4 M/uL Hemoglobin 12.6 12.0-16.0 g/dL Hematocrit 37.0 37-47 % Mean Corpuscular Volume 98.4 80-100 fL Mean Corpuscular Hemoglobin 33.5 25-34 pg Mean Corpuscular Hemoglobin Concent 34.1 32-36 g/dl Platelet Count 208 130-400 K/uL Mean Platelet Volume 9.8 7.4-10.4 fL Neutrophils (%) (Auto) 3.5 % Lymphocytes (%) (Auto) 95.3 % Monocytes (%) (Auto) 0.8 % Eosinophils (%) (Auto) 0.1 % Basophils (%) (Auto) 0.2 % Neutrophils # (Auto) 2.19 1.4-6.5 K/uL Lymphocytes # (Auto) 61.00 1.2-3.4 K/uL Monocytes # (Auto) 0.54 0.11-0.59 K/uL Eosinophils # (Auto) 0.09 0-0.5 K/uL Basophils # (Auto) 0.11 0-0.2 K/uL RDW Standard Deviation 48.4 36.4-46.3 fL RDW Coefficient of Variation 13.7 11.5-14.5 % Immature Granulocyte % (Auto) 0.1 % Immature Granulocyte # (Auto) 0.08 0.00-0.02 K/uL Smudge Cells PRESENT Prothrombin Time 10.6 9.0-12.0 SECONDS Prothromb Time International Ratio 1.0 0.9-1.1 D-Dimer 670 0-500 ug/L FEU Sodium Level 131 136-145 mmol/L Potassium Level 3.2 3.5-5.1 mmol/L Chloride Level 94 98-107 mmol/L Carbon Dioxide Level 29 21-32 mmol/L Anion Gap 8.0 3-11 mmol/L Blood Urea Nitrogen 10 7-18 mg/dl Creatinine 0.64 0.60-1.20 mg/dl Est Creatinine Clear Calc Drug Dose 77.6 ml/min Estimated GFR () 108.5 Estimated GFR (Non- 93.6 BUN/Creatinine Ratio 15.2 10-20 Random Glucose 97 70-99 mg/dl Calcium Level 8.8 8.5-10.1 mg/dl Magnesium Level 2.4 1.8-2.4 mg/dl Total Bilirubin 0.4 0.2-1 mg/dl Aspartate Amino Transf (AST/SGOT) 17 15-37 U/L Alanine Aminotransferase (ALT/SGPT) 25 12-78 U/L Alkaline Phosphatase 54 45-117 U/L Troponin I < 0.015 0-0.045 ng/ml Pro-B-Type Natriuretic Peptide 458 0-900 pg/ml Total Protein 7.7 6.4-8.2 gm/dl Albumin 4.4 3.4-5.0 gm/dl Globulin 3.3 2.5-4.0 gm/dl Albumin/Globulin Ratio 1.3 0.9-2 Thyroid Stimulating Hormone (TSH) 2.470 0.300-4.500 uIu/ml Urine Color YELLOW Urine Appearance CLEAR CLEAR Urine pH 8.0 4.5-7.5 Urine Specific [place] 1.008 1.000-1.030 Urine Protein NEG NEG Urine Glucose (UA) NEG NEG Urine Ketones NEG NEG Urine Occult Blood NEG NEG Urine Nitrite NEG NEG Urine Bilirubin NEG NEG Urine Urobilinogen NEG NEG Urine Leukocyte Esterase NEG NEG Lactic Acid Level 0.6 0.4-2.0 mmol/L Diagnostic Radiology CTA: EKG AF - rate 88BPM - no acute ischemic changes Impression Assessment and Plan 66 y/o F Hx CLL, IgG/IgM deficiency, asthma. Pt presents with a chief compliant of palpitations. Has not had CP, SOB, n/v or diaphoresis. On arrival to the ER a diagnosis of new-onset AF was established with an initial rate of . Her rate responded has been consistently below 100, however, she describes persistent discomfort as she can feel the palpitations. Initial labs are notable for an elevated WBC count at 64 which is approximately 20 above her baseline. A D dimer was elevated and followed by a CTA which was negative for PE. 1) New onset AF - rate controlled however palpitations are symptomatic - pt may then require cardioversion. We will consult cardio, place her on full dose Lovenox and TID Lopressor. An echo has been ordered. 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 Y/N: Yes Risk Level: Moderate Given or contraindicated: Enoxaparin (Lovenox)SQ
[2017-07-22] MEDS ORDERED: POTASSIUM CHLORIDE 20 MEQ TABCR PO ONE (05:45)
[2017-07-22] MEDS ORDERED: ENOXAPARIN 80 MG/0.8 ML SYR SQ SCH (06:00)
--- NOTE | 2017-07-22 06:38 | DIAGNOSTIC IMAGING REPORT ---
CHEST ONE VIEW PORTABLE HISTORY: 66 years-old Female palpitations, a.fib acute cardiac palpitations COMPARISON: Chest radiograph 03/21/2017, chest CT of same day TECHNIQUE: Portable upright AP view of the chest FINDINGS: Cardiac silhouette is moderately enlarged. Hazy bibasilar opacities are noted in a subsegmental distribution suggesting atelectasis. No pneumothorax, pleural effusion, focal airspace consolidation or overt pulmonary edema. Bones of the chest are grossly intact. IMPRESSION: Cardiomegaly without overt pulmonary edema. The above report was generated using voice recognition software. It may contain grammatical, syntax or spelling errors. Electronically signed by: Jose Eduardo Valle M.D. 07/22/2017 6:36 AM Dictated Date/Time: 07/22/2017 6:35 AM
--- NOTE | 2017-07-22 06:41 | DIAGNOSTIC IMAGING REPORT ---
CT ANGIOGRAM OF THE CHEST CLINICAL HISTORY: Palpitations, new onset atrial fibrillation. Elevated d-dimer. COMPARISON STUDY: 07-15 TECHNIQUE: Following the IV administration of 93 mL of [id number]-320, CT angiogram of the thorax was performed from the thoracic inlet to the lung bases utilizing the pulmonary embolus protocol. Images are reviewed in the axial, sagittal, and coronal planes. IV contrast was administered without complication. MIP imaging was performed. A dose lowering technique was utilized adhering to the principles of ALARA. CT DOSE: 212.49 mGy.cm FINDINGS: No pathologically enlarged axillary mediastinal or hilar lymph nodes were visualized. There was no evidence of thoracic aortic dilatation. There were no pulmonary artery filling defects to indicate acute pulmonary embolism. No pleural effusions are visualized. There is mild groundglass attenuation of the lungs. There is no focal pulmonary consolidation. There are mild basilar atelectatic changes. IMPRESSION: 1. No evidence of acute pulmonary embolism 2. No evidence of pathologic adenopathy 3. No evidence of focal pulmonary consolidation 4. Mild nonspecific groundglass attenuation the lungs with a slight mosaic distribution. The findings likely are secondary to either air trapping, or mild edema. Electronically signed by: Miguel Angel Garcia M.D. 07/22/2017 6:40 AM Dictated Date/Time: 07/22/2017 6:37 AM
[2017-07-22] MEDS: ALBUT/IPRATROP 3MG/0.5MG NEB 3 ML VIAL INH SCH ×2 (07:09→14:13)
[2017-07-22] MEDS: METOPROLOL TARTRATE 25 MG TAB PO SCH ×2 (08:29→14:52)
[2017-07-22] MEDS ORDERED: CETIRIZINE HCL 10 MG TAB PO SCH (09:00)
[2017-07-22] MEDS ORDERED: ASPIRIN 81 MG ECTAB PO SCH (09:00)
[2017-07-22] MEDS ORDERED: MULTIVITAMIN TAB PO SCH (09:00)
--- NOTE | 2017-07-22 09:06 | ECHOCARDIOGRAM REPORT ---
*NOTICE TO RECEIVING REPUBLICAN AGENCY This information is strictly Confidential and protected under [place] law. [place] law prohibits you from making any further disclosure of this information unless further disclosure is expressly permitted by the written consent of the person to whom it pertains or is authorized by law. A general authorization for the release of medical or other information is not sufficient for this purpose. Hospital accepts no responsibility if the information is made available to any other person, INCLUDING THE PATIENT. Interpretation Summary * Name: ALEC MORENO Study Date: 07/22/2017 06:22 AM BP: 153/93 mmHg * Patient Location: [facility] HR: 82 * : 1950 (M/d/yyyy) Gender: Female Height: 62 in * Age: 66 yrs Ethnicity: CA Weight: 143 lb * Ordering Physician: Bro Carlos * Performed By: Steffany Sanders RDCS * * Reason For Study: NEW A-FIB * BSA: 1.7 m2 * -- Conclusions -- * 1. Normal LV size. Borderline concentric LVH. * 2. Normal LV systolic function. LVEF 60-65%. No regional wall motion abnormalities. * 3. Normal RV size and function. * 4. Moderate biatrial enlargement. * 5. Mild mitral regurgitation. * 6. Mild TR. Normal estimated PA pressures. * 7. No prior studies for comparison. Procedure Details * A complete two-dimensional transthoracic echocardiogram was performed (2D, M-mode, Doppler and color flow Doppler). Left Ventricle * The left ventricle is grossly normal size. * There is borderline concentric left ventricular hypertrophy. * Ejection Fraction = 60-65%. * No regional wall motion abnormalities noted. Right Ventricle * The right ventricle is grossly normal size. * The right ventricular systolic function is normal as assessed by tricuspid annular plane systolic excursion (TAPSE) (normal >1.5 cm). Atria * The left atrium is moderately dilated. * The right atrium is moderately dilated. * No ASD detected; PFO is not assessed. Mitral Valve * The mitral valve is grossly normal. * There is no mitral valve stenosis. * There is mild mitral regurgitation. Tricuspid Valve * The tricuspid valve is not well visualized, but is grossly normal. * There is no tricuspid stenosis. * There is mild tricuspid regurgitation. Aortic Valve * The aortic valve opens well. * The aortic valve is trileaflet. * No hemodynamically significant valvular aortic stenosis. * There is no significant aortic regurgitation. Pulmonic Valve * The pulmonic valve is not well seen, but is grossly normal. * There is no pulmonic valvular stenosis. * Trace pulmonic valvular regurgitation. Great Vessels * The aortic root and proximal ascending aorta are normal sized. Pericardium/Pleural * There is no pericardial effusion. Great Vessels * IVC >2.1, > 50% change with respiration. Est RA 8 mmHg. * There is no evidence of pulmonary hypertension. The PA systolic pressure is less than 36 mmHg. MMode 2D Measurements and Calculations IVSd 1.1 cm IVSs 1.6 cm LVIDd 5.0 cm LVIDs 3.3 cm LVPWd 1.1 cm LVPWs 2.1 cm IVS/LVPW 1.0 FS 34.2 % EDV(Teich) 115.7 ml ESV(Teich) 42.9 ml EF(Teich) 63.0 % EDV(cubed) 121.6 ml ESV(cubed) 34.7 ml EF(cubed) 71.5 % % IVS thick 43.3 % % LVPW thick 92.6 % LV mass(C)d 208.7 grams LV mass(C)dI 125.9 grams/m\S\2 LV mass(C)s 257.9 grams LV mass(C)sI 155.6 grams/m\S\2 SV(Teich) 72.9 ml SI(Teich) 44.0 ml/m\S\2 SV(cubed) 86.9 ml SI(cubed) 52.4 ml/m\S\2 ACS 1.3 cm LA dimension 4.7 cm asc Aorta Diam 2.7 cm LVOT diam 2.0 cm LVOT area 3.0 cm\S\2 LVAd ap4 27.9 cm\S\2 LVLd ap4 7.3 cm EDV(MOD-sp4) 90.5 ml EDV(sp4-el) 91.1 ml LVAs ap4 14.7 cm\S\2 LVLs ap4 6.0 cm ESV(MOD-sp4) 29.3 ml ESV(sp4-el) 30.5 ml EF(MOD-sp4) 67.7 % EF(sp4-el) 66.5 % LVAd ap2 27.7 cm\S\2 LVLd ap2 7.2 cm EDV(MOD-sp2) 89.8 ml EDV(sp2-el) 90.0 ml LVAs ap2 14.9 cm\S\2 LVLs ap2 6.1 cm ESV(MOD-sp2) 32.5 ml ESV(sp2-el) 31.0 ml EF(MOD-sp2) 63.8 % EF(sp2-el) 65.6 % LVLd %diff -0.82 % EDV(MOD-bp) 90.3 ml LVLs %diff 0.52 % ESV(MOD-bp) 30.6 ml EF(MOD-bp) 66.0 % SV(MOD-sp4) 61.3 ml SI(MOD-sp4) 37.0 ml/m\S\2 SV(MOD-sp2) 57.3 ml SI(MOD-sp2) 34.6 ml/m\S\2 SV(MOD-bp) 59.6 ml SI(MOD-bp) 36.0 ml/m\S\2 SV(sp4-el) 60.6 ml SI(sp4-el) 36.6 ml/m\S\2 SV(sp2-el) 59.1 ml SI(sp2-el) 35.6 ml/m\S\2 Doppler Measurements and Calculations MV E max laurita 94.0 cm/sec MV A max laurita 31.3 cm/sec MV E/A 3.0 MV dec time 0.20 sec Ao V2 max 140.7 cm/sec Ao max PG 7.9 mmHg Ao max PG (full) 5.3 mmHg LICHA(V,A) 1.7 cm\S\2 LICHA(V,D) 1.7 cm\S\2 LV V1 max PG 2.6 mmHg LV V1 max 80.4 cm/sec MR max laurita 439.5 cm/sec MR max PG 77.5 mmHg PA V2 max 60.9 cm/sec PA max PG 1.5 mmHg TR max laurita 216.6 cm/sec
--- NOTE | 2017-07-22 10:55 | Oncology Consultation ---
Oncology/Heme Consultation Date of Consultation: Jul 22, 2017. Attending Physician: Bro Carlos M.D. Reason for Consultation: CLL History of Present Illness Patient with a history of stage 0 CLL. She has not needed any sort of therapy. 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 She was admitted yesterday after the feeling of palpitations for the past few days with associated headache. She denies significant fever. She denies significant night sweats or weight loss. There is been no overt bleeding. Cardiac arrhythmia was noted and the patient is being admitted for evaluation for that. Past Medical/Surgical History Medical Problems: (1) Abdominal pain Status: Acute (2) External hemorrhoids Status: Acute (3) History of chronic lymphocytic leukemia Status: Acute (4) Hyponatremia Status: Acute (5) New onset a-fib Status: Acute (6) Palpitations Status: Acute Family History Cancer Heart disease Hypertension Social History Smoking Status: Never Smoker Drug Use: none Marital Status: Housing Status: lives with significant other Occupation Status: employed Allergies Coded Allergies: Molds & Smuts (Verified Allergy, Severe, SOB, itchy, watery eyes, 07/22/17 ) Cat Dander (Verified Allergy, Mild, itchy, watery eyes, 07/22/17) Chlorthalidone (Verified Allergy, Unknown, Dizzy, light headed, 07/22/17) Erythromycin (Verified Adverse Reaction, Intermediate, NAUSEA / VOMITING, 07/22/17) Lactose Intolerance (Verified Adverse Reaction, Unknown, GI SYMPTOMS, ) Home Medications Scheduled Pamlico (Pamlico), 3 TABLETS PO DAILY Ascorbic Acid (Ascorbic Acid), 30,000 MG PO DAILY Aspirin (Aspirin Chewable), 81 MG PO QOD Atenolol (Tenormin), 25 MG PO DAILY Cetirizine (Zyrtec), 10 MG PO DAILY Fluticasone Furoate-Vilanterol (Breo Ellipta), 1 INHA PO DAILY Garlic (Garlic), 1,000 MG PO DAILY Ipratropium-Albuterol (Duoneb), 1 TREATMENT INH TID Montelukast Sodium (Montelukast Sodium), 10 MG PO Q2D Multiple Vitamin (Multivitamin), 1 TAB PO DAILY Prednisone (Prednisone), 5 MG PO UD [Calcimate Plus], 2,400 MG PO DAILY [Echinacea], 750 MG PO DAILY Scheduled PRN Albuterol Inhaler (Ventolin Inhaler), 2 PUFFS INH Q6 PRN Lorazepam (Ativan), 0.5 MG PO HS PRN for Sleep Ondansetron Hcl (Zofran), 4 MG PO Q6H PRN for Nausea Current Inpatient Medications Current Inpatient Medications Medications (Trade) Dose Ordered Sig/Lauren Route Start Time Stop Time Status Last Admin Dose Admin Ioversol (Optiray 320) 100 ml UD PRN IV 07/22/17 02:30 07/26/17 02:29 Metoprolol Tartrate (Lopressor Tab) 12.5 mg TID PO 07/22/17 09:00 08/21/17 08:59 07/22/17 08:29 12.5 MG Acetaminophen (Tylenol Tab) 650 mg Q4H PRN PO 07/22/17 04:30 08/21/17 04:29 Al Hydrox/Mg Hydrox/Simethicone (Maalox Max Susp) 15 ml Q4H PRN PO 07/22/17 04:30 08/21/17 04:29 Magnesium Hydroxide (Milk Of Magnesia Susp) 30 ml Q12H PRN PO 07/22/17 04:30 08/21/17 04:29 Morphine Sulfate (MoRPHine SULFATE INJ) 2 mg Q30M PRN IV 07/22/17 04:30 08/05/17 04:29 Enoxaparin Sodium (Lovenox Inj) 70 mg Q12H SQ 07/22/17 06:00 08/21/17 05:59 07/22/17 05:33 70 MG Aspirin (Ecotrin Tab) 81 mg QAM PO 07/22/17 09:00 08/21/17 08:59 07/22/17 08:28 81 MG Atenolol (Tenormin Tab) 25 mg DAILY PO 07/22/17 09:00 08/21/17 08:59 07/22/17 08:29 25 MG Cetirizine HCl (zyrTEC TAB) 10 mg DAILY PO 07/22/17 09:00 08/21/17 08:59 07/22/17 08:30 10 MG Albuterol/ Ipratropium (Duoneb) 1 ml TID INH 07/22/17 09:00 08/21/17 08:59 07/22/17 07:09 1 ML Lorazepam (Ativan Tab) 0.5 mg HS PRN PO 07/22/17 04:45 08/21/17 04:44 Montelukast Sodium (Singulair Tab) 10 mg Q2D@2100 PO 07/22/17 21:00 08/21/17 20:59 Multivitamins (Multivitamin Tab) 1 tab DAILY PO 07/22/17 09:00 08/21/17 08:59 07/22/17 08:29 1 TAB Prednisone (PredniSONE TAB) 15 mg Taper DAILY PO 07/22/17 09:00 07/28/17 08:59 07/22/17 08:28 15 MG Miscellaneous Information (Order Awaiting Action) 1 ea QS N/A 07/22/17 06:00 08/21/17 05:59 Miscellaneous (Iv Fluids Completed) 1 ea PRN PRN N/A 07/22/17 04:45 07/22/18 04:44 Review of Systems Constitutional: Negative for weight loss, night sweats, or fever Eyes: Negative for event change of vision ENT: Negative for epistaxis, nasal discharge, sore throat, or deafness Cardiovascular: Negative for chest pain, she has had a feeling of palpitations , she denies dizziness or diaphoresis Respiratory: Negative for new shortness of breath,hemoptysis, or purulent cough Gastrointestinal: Negative for diarrhea, hematemesis, melena, nausea, vomiting , or dyspepsia Integumentary (skin): Negative for rash or jaundice discoloration Genitourinary: Negative for urinary frequency, hematuria, or dysuria Neurological: Negative for weakness, seizure activity, headache, or dizziness Lymphatic/Hematologic: Negative for petechiae, bleeding or new adenopathy Musculoskeletal: Negative for new joint or back pain Allergic/Immunologic: Negative for unusual rash or pruritis. Physical Exam Date Time Temp Pulse Resp B/P (MAP) Pulse Ox O2 Delivery O2 Flow Rate FiO2 07/22/17 08:00 Room Air 07/22/17 07:27 96 16 94 Room Air 07/22/17 07:15 36.7 105 16 126/80 (95) 96 Room Air 07/22/17 05:05 36.6 82 20 153/93 100 Room Air 07/22/17 04:51 85 14 98 07/22/17 04:36 94 22 97 07/22/17 04:31 135/89 07/22/17 04:16 90 17 96 07/22/17 04:09 124/82 07/22/17 04:05 120/79 07/22/17 04:02 120 110/76 07/22/17 04:01 92 16 110/76 93 07/22/17 03:57 111/76 07/22/17 03:46 106 16 95 07/22/17 03:31 104 17 118/87 90 07/22/17 03:26 79 17 97 07/22/17 03:01 127/74 07/22/17 02:56 91 17 98 07/22/17 02:50 134/76 07/22/17 02:31 125/83 07/22/17 02:26 84 19 95 07/22/17 02:25 87 19 144/87 95 Room Air 07/22/17 02:20 144/87 07/22/17 02:11 91 18 94 07/22/17 01:56 87 19 94 07/22/17 01:41 89 20 88 07/22/17 01:36 97 Room Air 07/22/17 01:32 82 07/22/17 01:24 167/89 07/22/17 01:16 36.5 91 18 152/83 99 Room Air Constitutional: vitals are stable. She appears quite comfortable. Eyes: Eyes are DORITA EOMI without conjuctival erythema or icterus. ENT: External examination was negative for masses. Neck: Negative for masses or palpable thyromegaly Respiratory: Lung sounds were generally clear bilaterally Cardiovascular: Heart was RRR without significant murmur, gallops aoe rubs Gastrointestinal: No palpable hepatic or splenomegaly. The abdomen was soft with normal bowel sounds. Lymphatic system: there was no palpable peripheral lymphadenopathy Musculoskeletal System: The musculoskeletal system seemed concordant with age. Skin: The skin was negative for jaundice. Neurologic exam: The exam was negative for any focal findings. Deep tendon reflexes were equal and symmetrical. Psychiatric exam: Was essentially negative with normal mood and effect. Breast exam: Not done Extremities: Negative for significant edema or erythema or tenderness. Laboratory Results Last 24 Hours Test 07/22/17 01:30 07/22/17 01:38 07/22/17 01:55 White Blood Count 64.01 K/uL Red Blood Count 3.76 M/uL Hemoglobin 12.6 g/dL Hematocrit 37.0 % Mean Corpuscular Volume 98.4 fL Mean Corpuscular Hemoglobin 33.5 pg Mean Corpuscular Hemoglobin Concent 34.1 g/dl Platelet Count 208 K/uL Mean Platelet Volume 9.8 fL Neutrophils (%) (Auto) 3.5 % Lymphocytes (%) (Auto) 95.3 % Monocytes (%) (Auto) 0.8 % Eosinophils (%) (Auto) 0.1 % Basophils (%) (Auto) 0.2 % Neutrophils # (Auto) 2.19 K/uL Lymphocytes # (Auto) 61.00 K/uL Monocytes # (Auto) 0.54 K/uL Eosinophils # (Auto) 0.09 K/uL Basophils # (Auto) 0.11 K/uL RDW Standard Deviation 48.4 fL RDW Coefficient of Variation 13.7 % Immature Granulocyte % (Auto) 0.1 % Immature Granulocyte # (Auto) 0.08 K/uL Smudge Cells PRESENT Prothrombin Time 10.6 SECONDS Prothromb Time International Ratio 1.0 D-Dimer 670 ug/L FEU Sodium Level 131 mmol/L Potassium Level 3.2 mmol/L Chloride Level 94 mmol/L Carbon Dioxide Level 29 mmol/L Anion Gap 8.0 mmol/L Blood Urea Nitrogen 10 mg/dl Creatinine 0.64 mg/dl Est Creatinine Clear Calc Drug Dose 77.6 ml/min Estimated GFR () 108.5 Estimated GFR (Non- 93.6 BUN/Creatinine Ratio 15.2 Random Glucose 97 mg/dl Calcium Level 8.8 mg/dl Magnesium Level 2.4 mg/dl Total Bilirubin 0.4 mg/dl Aspartate Amino Transf (AST/SGOT) 17 U/L Alanine Aminotransferase (ALT/SGPT) 25 U/L Alkaline Phosphatase 54 U/L Troponin I < 0.015 ng/ml Pro-B-Type Natriuretic Peptide 458 pg/ml Total Protein 7.7 gm/dl Albumin 4.4 gm/dl Globulin 3.3 gm/dl Albumin/Globulin Ratio 1.3 Thyroid Stimulating Hormone (TSH) 2.470 uIu/ml Urine Color YELLOW Urine Appearance CLEAR Urine pH 8.0 Urine Specific [place] 1.008 Urine Protein NEG Urine Glucose (UA) NEG Urine Ketones NEG Urine Occult Blood NEG Urine Nitrite NEG Urine Bilirubin NEG Urine Urobilinogen NEG Urine Leukocyte Esterase NEG Lactic Acid Level 0.6 mmol/L Assessment & Plan CLL stage 0. Patient's white count of 60,000. She states that she has been on 14 days of prednisone because of a pulmonary infection or asthma that. That alone may increase the white cell number to some degree. Her white cell numbers tend to be in total between 40-50,000. Hemoglobin and platelet numbers are normal. CT scan of the chest done yesterday parenthetically did not show any adenopathy of any significant degree. CT scans done last year of her abdomen really unremarkable. I do not suspect that there will be any need for our intervention. She does have a follow-up in mid August in our clinic. With that then we will sign off but please do not hesitate to recontact us if needed.
--- NOTE | 2017-07-22 11:07 | Cardiology Consultation ---
Cardiology Consultation Date of Consultation: Jul 22, 2017. Requesting Physician: Terrance Reason for Consultation: Atrial fibrillation Pt evaluation today including: conversation w/ patient, physical exam, chart review, lab review, review of studies, review of inpatient medication list, conversation w/ attending History of Present Illness The patient is a 66-year-old woman without a known history of cardiac disease who presented to [facility] after an extended episode of palpitations. Patient states that yesterday evening she began to feel some very strong in irregular heartbeats in the precordial area. She is accustomed to occasional palpitations of this nature but they are generally brief in duration. She has had similar symptoms over the years but the episodes themselves generally last less than 30 minutes. These episodes did not tended produce additional symptoms outside of a sense of fatigue. There is no associated dizziness or lightheadedness. She did not describe any symptoms of chest discomfort. She denied any worsening breathing trouble associated with this more current episode. The patient attempted take her blood pressure at home with a home monitor and noticed that her pulse was quite irregular and had difficulty obtaining a blood pressure reading. Based on this information and the persistent nature of her symptoms she presented to the emergency room for an evaluation. There she was discovered to have atrial fibrillation and admitted for observation. This morning the patient claims to be feeling well. She still has a sense of palpitation on but would not as severe as last evening. She has been up to the bathroom and back without additional symptoms. She is tired if she has not had any sleep recently. Over the past few weeks the patient has been dealing with some pulmonary issues. She is being treated for pneumonia and recently completed a course of antibiotics. She is still on a prednisone taper. Overall her breathing is much improved since starting the therapy. She also had a cough which is improved since starting the therapy. She has not noticed any swelling in her lower extremities or evidence of peripheral edema. She states that her appetite has been good she has no gastrointestinal complaints. Generally speaking she is an active individual who was accustomed to performing routine activity without limitation. She does not have a routine exercise program however. 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 Some fatigue which waxes and wanes in severity. All Other Systems: Reviewed and Negative Allergies Coded Allergies: Molds & Smuts (Verified Allergy, Severe, SOB, itchy, watery eyes, 07/22/17 ) Cat Dander (Verified Allergy, Mild, itchy, watery eyes, 07/22/17) Chlorthalidone (Verified Allergy, Unknown, Dizzy, light headed, 07/22/17) Erythromycin (Verified Adverse Reaction, Intermediate, NAUSEA / VOMITING, 07/22/17) Lactose Intolerance (Verified Adverse Reaction, Unknown, GI SYMPTOMS, ) Medications Current Inpatient Medications Medications (Trade) Dose Ordered Sig/Lauren Route Start Time Stop Time Status Last Admin Dose Admin Ioversol (Optiray 320) 100 ml UD PRN IV 07/22/17 02:30 07/26/17 02:29 Metoprolol Tartrate (Lopressor Tab) 12.5 mg TID PO 07/22/17 09:00 08/21/17 08:59 07/22/17 08:29 12.5 MG Acetaminophen (Tylenol Tab) 650 mg Q4H PRN PO 07/22/17 04:30 08/21/17 04:29 Al Hydrox/Mg Hydrox/Simethicone (Maalox Max Susp) 15 ml Q4H PRN PO 07/22/17 04:30 08/21/17 04:29 Magnesium Hydroxide (Milk Of Magnesia Susp) 30 ml Q12H PRN PO 07/22/17 04:30 08/21/17 04:29 Morphine Sulfate (MoRPHine SULFATE INJ) 2 mg Q30M PRN IV 07/22/17 04:30 08/05/17 04:29 Enoxaparin Sodium (Lovenox Inj) 70 mg Q12H SQ 07/22/17 06:00 08/21/17 05:59 07/22/17 05:33 70 MG Aspirin (Ecotrin Tab) 81 mg QAM PO 07/22/17 09:00 08/21/17 08:59 07/22/17 08:28 81 MG Atenolol (Tenormin Tab) 25 mg DAILY PO 07/22/17 09:00 08/21/17 08:59 07/22/17 08:29 25 MG Cetirizine HCl (zyrTEC TAB) 10 mg DAILY PO 07/22/17 09:00 08/21/17 08:59 07/22/17 08:30 10 MG Albuterol/ Ipratropium (Duoneb) 1 ml TID INH 07/22/17 09:00 08/21/17 08:59 07/22/17 07:09 1 ML Lorazepam (Ativan Tab) 0.5 mg HS PRN PO 07/22/17 04:45 08/21/17 04:44 Montelukast Sodium (Singulair Tab) 10 mg Q2D@2100 PO 07/22/17 21:00 08/21/17 20:59 Multivitamins (Multivitamin Tab) 1 tab DAILY PO 07/22/17 09:00 08/21/17 08:59 07/22/17 08:29 1 TAB Prednisone (PredniSONE TAB) 15 mg Taper DAILY PO 07/22/17 09:00 07/28/17 08:59 07/22/17 08:28 15 MG Miscellaneous Information (Order Awaiting Action) 1 ea QS N/A 07/22/17 06:00 08/21/17 05:59 Miscellaneous (Iv Fluids Completed) 1 ea PRN PRN N/A 07/22/17 04:45 07/22/18 04:44 Physical Exam Vital Signs Past 12 Hours Date Time Temp Pulse Resp B/P (MAP) Pulse Ox O2 Delivery O2 Flow Rate FiO2 07/22/17 08:00 Room Air 07/22/17 07:27 96 16 94 Room Air 07/22/17 07:15 36.7 105 16 126/80 (95) 96 Room Air 07/22/17 05:05 36.6 82 20 153/93 100 Room Air 07/22/17 04:51 85 14 98 07/22/17 04:36 94 22 97 07/22/17 04:31 135/89 07/22/17 04:16 90 17 96 07/22/17 04:09 124/82 07/22/17 04:05 120/79 07/22/17 04:02 120 110/76 07/22/17 04:01 92 16 110/76 93 07/22/17 03:57 111/76 07/22/17 03:46 106 16 95 10/24/17 03:31 104 17 118/87 90 07/22/17 03:26 79 17 97 07/22/17 03:01 127/74 07/22/17 02:56 91 17 98 07/22/17 02:50 134/76 07/22/17 02:31 125/83 07/22/17 02:26 84 19 95 07/22/17 02:25 87 19 144/87 95 Room Air 07/22/17 02:20 144/87 07/22/17 02:11 91 18 94 07/22/17 01:56 87 19 94 07/22/17 01:41 89 20 88 07/22/17 01:36 97 Room Air 07/22/17 01:32 82 07/22/17 01:24 167/89 07/22/17 01:16 36.5 91 18 152/83 99 Room Air She is alert and oriented x3. Mood affect appear normal. She answered all questions appropriately. HEENT: Sclerae are anicteric. Pupils are equal and reactive to light and accommodation. Extraocular movements were intact. Neuro: Cranial nerves intact Neck: Examination of the submandibular region did not reveal any significant lymphadenopathy. Carotids are palpable bilaterally and free of bruits on auscultation. There was no evidence of jugular venous distention. The thyroid was not enlarged. Lungs: Lungs are clear to auscultation bilaterally. There are no rales wheezes or rhonchi. She has normal respiratory effort without use of accessory muscles. There is normal pulmonary excursion. Cardiac: The rhythm was irregular. S1 and S2 were normal. There are no murmurs on examination. The PMI was not markedly displaced on palpation. Abdomen: The abdomen was soft and nontender. Extremities: Patient has bilateral radial pulses that are equal in intensity. There is no evidence cyanosis or clubbing. There was no evidence of significant peripheral edema bilaterally. Skin: There are no rashes noted on examination today. Data Laboratory Results: Last 24 Hours Test 07/22/17 01:30 07/22/17 01:38 07/22/17 01:55 White Blood Count 64.01 K/uL Red Blood Count 3.76 M/uL Hemoglobin 12.6 g/dL Hematocrit 37.0 % Mean Corpuscular Volume 98.4 fL Mean Corpuscular Hemoglobin 33.5 pg Mean Corpuscular Hemoglobin Concent 34.1 g/dl Platelet Count 208 K/uL Mean Platelet Volume 9.8 fL Neutrophils (%) (Auto) 3.5 % Lymphocytes (%) (Auto) 95.3 % Monocytes (%) (Auto) 0.8 % Eosinophils (%) (Auto) 0.1 % Basophils (%) (Auto) 0.2 % Neutrophils # (Auto) 2.19 K/uL Lymphocytes # (Auto) 61.00 K/uL Monocytes # (Auto) 0.54 K/uL Eosinophils # (Auto) 0.09 K/uL Basophils # (Auto) 0.11 K/uL RDW Standard Deviation 48.4 fL RDW Coefficient of Variation 13.7 % Immature Granulocyte % (Auto) 0.1 % Immature Granulocyte # (Auto) 0.08 K/uL Smudge Cells PRESENT Prothrombin Time 10.6 SECONDS Prothromb Time International Ratio 1.0 D-Dimer 670 ug/L FEU Sodium Level 131 mmol/L Potassium Level 3.2 mmol/L Chloride Level 94 mmol/L Carbon Dioxide Level 29 mmol/L Anion Gap 8.0 mmol/L Blood Urea Nitrogen 10 mg/dl Creatinine 0.64 mg/dl Est Creatinine Clear Calc Drug Dose 77.6 ml/min Estimated GFR () 108.5 Estimated GFR (Non- 93.6 BUN/Creatinine Ratio 15.2 Random Glucose 97 mg/dl Calcium Level 8.8 mg/dl Magnesium Level 2.4 mg/dl Total Bilirubin 0.4 mg/dl Aspartate Amino Transf (AST/SGOT) 17 U/L Alanine Aminotransferase (ALT/SGPT) 25 U/L Alkaline Phosphatase 54 U/L Troponin I < 0.015 ng/ml Pro-B-Type Natriuretic Peptide 458 pg/ml Total Protein 7.7 gm/dl Albumin 4.4 gm/dl Globulin 3.3 gm/dl Albumin/Globulin Ratio 1.3 Thyroid Stimulating Hormone (TSH) 2.470 uIu/ml Urine Color YELLOW Urine Appearance CLEAR Urine pH 8.0 Urine Specific [place] 1.008 Urine Protein NEG Urine Glucose (UA) NEG Urine Ketones NEG Urine Occult Blood NEG Urine Nitrite NEG Urine Bilirubin NEG Urine Urobilinogen NEG Urine Leukocyte Esterase NEG Lactic Acid Level 0.6 mmol/L Imaging: Chest x-ray demonstrated evidence of cardiomegaly without acute cardiopulmonary process. CT PE protocol did not reveal any evidence of pulmonary embolus. There is no definite abnormality noted on that study EKG: Atrial fibrillation with controlled ventricular response Telemetry reviewed: Atrial fibrillation with variable ventricular response Echocardiogram performed this morning revealed preserved LV systolic function with mild biatrial enlargement. Mild mitral regurgitation. Assessment & Plan 1. Atrial fibrillation: Patient likely had the beginning of a persistent atrial fibrillation last evening. This was manifest primarily by a sense of palpitation. She has very few other symptoms. Overall she is tolerating the arrhythmia quite well. She was on atenolol as an outpatient this provide some element of rate control. Overall she would likely feel better with more aggressive rate control and she has been initiated on additional metoprolol here in the hospital. Whether this will be adequate in improving her symptoms is unclear. She may be better served with a rhythm control strategy if she continues to feel poorly. Cardioversion could be entertained while she is in the hospital although she has a significant chance of converting on her own within the next 24 hours. One complicating factor is the possibility of thromboembolic event. While she reports the onset of this episode last evening , she does have episodes of palpitations at other times. It is very possible she has had other episodes of occult atrial fibrillation. As the duration and frequency of these episodes are unknown, it would be prudent to perform a UMA prior to any planned cardioversion in the next day or 2. Alternatively, the patient could be started on anticoagulation and discharged with good rate control. She can follow up in the clinic for possible cardioversion at a later date when she has been on therapeutic anticoagulation for 3-4 weeks. At this point it is unclear how well she will feel with more aggressive rate control. I think we have the option of observing her over the course of the day and see if she cardioverts. If she is not satisfied with a rate control strategy in still feeling poorly despite adequate rate control we have the option of cardioverting her tomorrow morning. In any event, she should be initiated on systemic anticoagulation based on her chads Vasc score. Any of the currently available agents would be suitable. 2. Valvular heart disease: Mitral regurgitation, mild. This can be followed over time. No evidence of LV dysfunction. No symptoms.
[2017-07-22] MEDS ORDERED: RIVA1TAB4 PO ×2 (15:24→15:35)
[2017-07-22] MEDS ORDERED: ATEN-173 PO (15:24)
[2017-07-22] MEDS ORDERED: XRL15 PO (15:24)
--- NOTE | 2017-07-22 15:27 | Discharge Instructions ---
Discharge Instructions Date of Service Jul 22, 2017. Admission Reason for Admission: Atrial Fib W/ Rvr Discharge Discharge Diagnosis / Problem: Paroxysmal A. Fib w/ RVR Discharge Goals Goal(s): Decrease discomfort, Increase independence Activity Recommendations Activity Limitations: resume your previous activity . Instructions / Follow-Up Instructions / Follow-Up F/U with Cardiology in 3-4 weeks for possible cardioversion F/U with PCP in about 1 week. Current Hospital Diet Patient's current hospital diet: AHA Diet (Heart Healthy) Discharge Diet Recommended Diet: AHA Diet (Heart Healthy) Pending Studies Studies pending at discharge: no Laboratory Results Lipid Panel Test 05/02/17 09:13 Range/Units Triglycerides Level 44 0-150 mg/dl Cholesterol Level 193 0-200 mg/dl HDL Cholesterol 89 mg/dl Cholesterol/HDL Ratio 2.2 LDL Cholesterol, Calculated 95 mg/dl Medical Emergencies . Who to Call and When: Medical Emergencies: If at any time you feel your situation is an emergency, please call 911 immediately. . Non-Emergent Contact Non-Emergency issues call your: Primary Care Provider Call Non-Emergent contact if: you have any medication questions . . "Provider Documentation" section prepared by Wei Lozano. . VTE Core Measure Inpt VTE Proph given/why not?: Enoxaparin (Lovenox)SQ
--- NOTE | 2017-07-22 15:38 | Discharge Summary ---
Discharge Summary Date of Service Jul 22, 2017. Discharge Summary Admission Date: Jul 22, 2017 at 04:31 Discharge Date: Jul 22, 2017 Discharge Disposition: Home Principal Diagnosis: Acute Paroxysmal Atrial fibrillation Problems/Secondary Diagnoses: CLL Immunizations: Have You Had Influenza Vaccine: Yes Influenza Vaccine Date: Jul 22, 2012 History of Tetanus Vaccine?: Yes History of Pneumococcal: Yes Pneumococcal Date: Dec 21, 2011 History of Hepatitis B Vaccine: Yes Hepatitis Immunization Date: Dec 20, 2010 Consultations: Cardiology Consultation Date of Consultation: Jul 22, 2017. Requesting Physician: Terrance Reason for Consultation: Atrial fibrillation Pt evaluation today including: conversation w/ patient, physical exam, chart review, lab review, review of studies, review of inpatient medication list, conversation w/ attending History of Present Illness The patient is a 66-year-old woman without a known history of cardiac disease who presented to [facility] after an extended episode of palpitations. Patient states that yesterday evening she began to feel some very strong in irregular heartbeats in the precordial area. She is accustomed to occasional palpitations of this nature but they are generally brief in duration. She has had similar symptoms over the years but the episodes themselves generally last less than 30 minutes. These episodes did not tended produce additional symptoms outside of a sense of fatigue. There is no associated dizziness or lightheadedness. She did not describe any symptoms of chest discomfort. She denied any worsening breathing trouble associated with this more current episode. The patient attempted take her blood pressure at home with a home monitor and noticed that her pulse was quite irregular and had difficulty obtaining a blood pressure reading. Based on this information and the persistent nature of her symptoms she presented to the emergency room for an evaluation. There she was discovered to have atrial fibrillation and admitted for observation. This morning the patient claims to be feeling well. She still has a sense of palpitation on but would not as severe as last evening. She has been up to the bathroom and back without additional symptoms. She is tired if she has not had any sleep recently. Over the past few weeks the patient has been dealing with some pulmonary issues. She is being treated for pneumonia and recently completed a course of antibiotics. She is still on a prednisone taper. Overall her breathing is much improved since starting the therapy. She also had a cough which is improved since starting the therapy. She has not noticed any swelling in her lower extremities or evidence of peripheral edema. She states that her appetite has been good she has no gastrointestinal complaints. Generally speaking she is an active individual who was accustomed to performing routine activity without limitation. She does not have a routine exercise program however. 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 Some fatigue which waxes and wanes in severity. All Other Systems: Reviewed and Negative Allergies Coded Allergies: Molds & Smuts (Verified Allergy, Severe, SOB, itchy, watery eyes, 07/22/17 ) Cat Dander (Verified Allergy, Mild, itchy, watery eyes, 07/22/17) Chlorthalidone (Verified Allergy, Unknown, Dizzy, light headed, 07/22/17) Erythromycin (Verified Adverse Reaction, Intermediate, NAUSEA / VOMITING, 07/22/17) Lactose Intolerance (Verified Adverse Reaction, Unknown, GI SYMPTOMS, ) Medications Current Inpatient Medications Medications (Trade) Dose Ordered Sig/Lauren Route Start Time Stop Time Status Last Admin Dose Admin Ioversol (Optiray 320) 100 ml UD PRN IV 07/22/17 02:30 07/26/17 02:29 Metoprolol Tartrate (Lopressor Tab) 12.5 mg TID PO 07/22/17 09:00 08/21/17 08:59 07/22/17 08:29 12.5 MG Acetaminophen (Tylenol Tab) 650 mg Q4H PRN PO 07/22/17 04:30 08/21/17 04:29 Al Hydrox/Mg Hydrox/Simethicone (Maalox Max Susp) 15 ml Q4H PRN PO 07/22/17 04:30 08/21/17 04:29 Magnesium Hydroxide (Milk Of Magnesia Susp) 30 ml Q12H PRN PO 07/22/17 04:30 08/21/17 04:29 Morphine Sulfate (MoRPHine SULFATE INJ) 2 mg Q30M PRN IV 07/22/17 04:30 08/05/17 04:29 Enoxaparin Sodium (Lovenox Inj) 70 mg Q12H SQ 07/22/17 06:00 08/21/17 05:59 07/22/17 05:33 70 MG Aspirin (Ecotrin Tab) 81 mg QAM PO 07/22/17 09:00 08/21/17 08:59 07/22/17 08:28 81 MG Atenolol (Tenormin Tab) 25 mg DAILY PO 07/22/17 09:00 08/21/17 08:59 07/22/17 08:29 25 MG Cetirizine HCl (zyrTEC TAB) 10 mg DAILY PO 07/22/17 09:00 08/21/17 08:59 07/22/17 08:30 10 MG Albuterol/ Ipratropium (Duoneb) 1 ml TID INH 07/22/17 09:00 08/21/17 08:59 07/22/17 07:09 1 ML Lorazepam (Ativan Tab) 0.5 mg HS PRN PO 07/22/17 04:45 08/21/17 04:44 Montelukast Sodium (Singulair Tab) 10 mg Q2D@2100 PO 07/22/17 21:00 08/21/17 20:59 Multivitamins (Multivitamin Tab) 1 tab DAILY PO 07/22/17 09:00 08/21/17 08:59 07/22/17 08:29 1 TAB Prednisone (PredniSONE TAB) 15 mg Taper DAILY PO 07/22/17 09:00 07/28/17 08:59 07/22/17 08:28 15 MG Miscellaneous Information (Order Awaiting Action) 1 ea QS N/A 07/22/17 06:00 08/21/17 05:59 Miscellaneous (Iv Fluids Completed) 1 ea PRN PRN N/A 07/22/17 04:45 07/22/18 04:44 Physical Exam Vital Signs Past 12 Hours Date Time Temp Pulse Resp B/P (MAP) Pulse Ox O2 Delivery O2 Flow Rate FiO2 07/22/17 08:00 Room Air 07/22/17 07:27 96 16 94 Room Air 07/22/17 07:15 36.7 105 16 126/80 (95) 96 Room Air 07/22/17 05:05 36.6 82 20 153/93 100 Room Air 07/22/17 04:51 85 14 98 07/22/17 04:36 94 22 97 07/22/17 04:31 135/89 07/22/17 04:16 90 17 96 07/22/17 04:09 124/82 07/22/17 04:05 120/79 07/22/17 04:02 120 110/76 07/22/17 04:01 92 16 110/76 93 07/22/17 03:57 111/76 07/22/17 03:46 106 16 95 07/22/17 03:31 104 17 118/87 90 07/22/17 03:26 79 17 97 07/22/17 03:01 127/74 07/22/17 02:56 91 17 98 07/22/17 02:50 134/76 07/22/17 02:31 125/83 07/22/17 02:26 84 19 95 07/22/17 02:25 87 19 144/87 95 Room Air 07/22/17 02:20 144/87 07/22/17 02:11 91 18 94 07/22/17 01:56 87 19 94 07/22/17 01:41 89 20 88 07/22/17 01:36 97 Room Air 07/22/17 01:32 82 07/22/17 01:24 167/89 07/22/17 01:16 36.5 91 18 152/83 99 Room Air She is alert and oriented x3. Mood affect appear normal. She answered all questions appropriately. HEENT: Sclerae are anicteric. Pupils are equal and reactive to light and accommodation. Extraocular movements were intact. Neuro: Cranial nerves intact Neck: Examination of the submandibular region did not reveal any significant lymphadenopathy. Carotids are palpable bilaterally and free of bruits on auscultation. There was no evidence of jugular venous distention. The thyroid was not enlarged. Lungs: Lungs are clear to auscultation bilaterally. There are no rales wheezes or rhonchi. She has normal respiratory effort without use of accessory muscles. There is normal pulmonary excursion. Cardiac: The rhythm was irregular. S1 and S2 were normal. There are no murmurs on examination. The PMI was not markedly displaced on palpation. Abdomen: The abdomen was soft and nontender. Extremities: Patient has bilateral radial pulses that are equal in intensity. There is no evidence cyanosis or clubbing. There was no evidence of significant peripheral edema bilaterally. Skin: There are no rashes noted on examination today. Data Laboratory Results: Last 24 Hours Test 07/22/17 01:30 07/22/17 01:38 07/22/17 01:55 White Blood Count 64.01 K/uL Red Blood Count 3.76 M/uL Hemoglobin 12.6 g/dL Hematocrit 37.0 % Mean Corpuscular Volume 98.4 fL Mean Corpuscular Hemoglobin 33.5 pg Mean Corpuscular Hemoglobin Concent 34.1 g/dl Platelet Count 208 K/uL Mean Platelet Volume 9.8 fL Neutrophils (%) (Auto) 3.5 % Lymphocytes (%) (Auto) 95.3 % Monocytes (%) (Auto) 0.8 % Eosinophils (%) (Auto) 0.1 % Basophils (%) (Auto) 0.2 % Neutrophils # (Auto) 2.19 K/uL Lymphocytes # (Auto) 61.00 K/uL Monocytes # (Auto) 0.54 K/uL Eosinophils # (Auto) 0.09 K/uL Basophils # (Auto) 0.11 K/uL RDW Standard Deviation 48.4 fL RDW Coefficient of Variation 13.7 % Immature Granulocyte % (Auto) 0.1 % Immature Granulocyte # (Auto) 0.08 K/uL Smudge Cells PRESENT Prothrombin Time 10.6 SECONDS Prothromb Time International Ratio 1.0 D-Dimer 670 ug/L FEU Sodium Level 131 mmol/L Potassium Level 3.2 mmol/L Chloride Level 94 mmol/L Carbon Dioxide Level 29 mmol/L Anion Gap 8.0 mmol/L Blood Urea Nitrogen 10 mg/dl Creatinine 0.64 mg/dl Est Creatinine Clear Calc Drug Dose 77.6 ml/min Estimated GFR () 108.5 Estimated GFR (Non- 93.6 BUN/Creatinine Ratio 15.2 Random Glucose 97 mg/dl Calcium Level 8.8 mg/dl Magnesium Level 2.4 mg/dl Total Bilirubin 0.4 mg/dl Aspartate Amino Transf (AST/SGOT) 17 U/L Alanine Aminotransferase (ALT/SGPT) 25 U/L Alkaline Phosphatase 54 U/L Troponin I < 0.015 ng/ml Pro-B-Type Natriuretic Peptide 458 pg/ml Total Protein 7.7 gm/dl Albumin 4.4 gm/dl Globulin 3.3 gm/dl Albumin/Globulin Ratio 1.3 Thyroid Stimulating Hormone (TSH) 2.470 uIu/ml Urine Color YELLOW Urine Appearance CLEAR Urine pH 8.0 Urine Specific [place] 1.008 Urine Protein NEG Urine Glucose (UA) NEG Urine Ketones NEG Urine Occult Blood NEG Urine Nitrite NEG Urine Bilirubin NEG Urine Urobilinogen NEG Urine Leukocyte Esterase NEG Lactic Acid Level 0.6 mmol/L Imaging: Chest x-ray demonstrated evidence of cardiomegaly without acute cardiopulmonary process. CT PE protocol did not reveal any evidence of pulmonary embolus. There is no definite abnormality noted on that study EKG: Atrial fibrillation with controlled ventricular response Telemetry reviewed: Atrial fibrillation with variable ventricular response Echocardiogram performed this morning revealed preserved LV systolic function with mild biatrial enlargement. Mild mitral regurgitation. Assessment & Plan 1. Atrial fibrillation: Patient likely had the beginning of a persistent atrial fibrillation last evening. This was manifest primarily by a sense of palpitation. She has very few other symptoms. Overall she is tolerating the arrhythmia quite well. She was on atenolol as an outpatient this provide some element of rate control. Overall she would likely feel better with more aggressive rate control and she has been initiated on additional metoprolol here in the hospital. Whether this will be adequate in improving her symptoms is unclear. She may be better served with a rhythm control strategy if she continues to feel poorly. Cardioversion could be entertained while she is in the hospital although she has a significant chance of converting on her own within the next 24 hours. One complicating factor is the possibility of thromboembolic event. While she reports the onset of this episode last evening , she does have episodes of palpitations at other times. It is very possible she has had other episodes of occult atrial fibrillation. As the duration and frequency of these episodes are unknown, it would be prudent to perform a UMA prior to any planned cardioversion in the next day or 2. Alternatively, the patient could be started on anticoagulation and discharged with good rate control. She can follow up in the clinic for possible cardioversion at a later date when she has been on therapeutic anticoagulation for 3-4 weeks. At this point it is unclear how well she will feel with more aggressive rate control. I think we have the option of observing her over the course of the day and see if she cardioverts. If she is not satisfied with a rate control strategy in still feeling poorly despite adequate rate control we have the option of cardioverting her tomorrow morning. In any event, she should be initiated on systemic anticoagulation based on her chads Vasc score. Any of the currently available agents would be suitable. 2. Valvular heart disease: Mitral regurgitation, mild. This can be followed over time. No evidence of LV dysfunction. No symptoms. Oncology/Heme Consultation Date of Consultation: Jul 22, 2017. Attending Physician: Bro Carlos M.D. Reason for Consultation: CLL History of Present Illness Patient with a history of stage 0 CLL. She has not needed any sort of therapy. 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 She was admitted yesterday after the feeling of palpitations for the past few days with associated headache. She denies significant fever. She denies significant night sweats or weight loss. There is been no overt bleeding. Cardiac arrhythmia was noted and the patient is being admitted for evaluation for that. Assessment & Plan CLL stage 0. Patient's white count of 60,000. She states that she has been on 14 days of prednisone because of a pulmonary infection or asthma that. That alone may increase the white cell number to some degree. Her white cell numbers tend to be in total between 40-50,000. Hemoglobin and platelet numbers are normal. CT scan of the chest done yesterday parenthetically did not show any adenopathy of any significant degree. CT scans done last year of her abdomen really unremarkable. I do not suspect that there will be any need for our intervention. She does have a follow-up in mid August in our clinic. With that then we will sign off but please do not hesitate to recontact us if needed. <Electronically signed by Regan Stanton D.O.> Medication Reconciliation New Medications: Rivaroxaban (Xarelto) 20 Mg Tab 20 MG PO DAILY for 30 Days, #30 TAB 1 Refill Changed Medications: Atenolol (Tenormin) 25 Mg Tab 25 MG PO BID for 30 Days, #60 TAB 1 Refill (Changed from: DAILY; Refills: ) TAKE 1 TABLET TWICE A DAY Continued Medications: Albuterol Inhaler (Ventolin Inhaler) Aers 2 PUFFS INH Q6 PRN, #5 INHALER Ventura (Ventura) 650 Mg Tab 3 TABLETS PO DAILY Ascorbic Acid (Ascorbic Acid) 1,000 Mg Tab 20705 MG PO DAILY TAKE THIRTY 1000MG TABLETS DAILY (30,000 MG DAILY). Aspirin (Aspirin Chewable) 81 Mg Chew 81 MG PO QOD, TAB Cetirizine (Zyrtec) 10 Mg Tab 10 MG PO DAILY Fluticasone Furoate-Vilanterol (Breo Ellipta) 1 Inh Inh 1 INHA PO DAILY Garlic (Garlic) 1,000 Mg Cap 1000 MG PO DAILY Ipratropium-Albuterol (Duoneb) 3 Ml Nebu 1 TREATMENT INH TID Lorazepam (Ativan) 0.5 Mg Tab 0.5 MG PO HS PRN for Sleep, TAB Montelukast Sodium (Montelukast Sodium) 10 Mg Tab 10 MG PO Q2D for 30 Days, TAB 5 Refills Multiple Vitamin (Multivitamin) 1 Tab Tab 1 TAB PO DAILY, TAB Ondansetron Hcl (Zofran) 4 Mg Tab 4 MG PO Q6H PRN for Nausea, TAB Prednisone (Prednisone) 5 Mg Tab 5 MG PO UD tapering dose 15mg x 2 days 10mg x 2 days 5 mg x 2 days then stop [Calcimate Plus] () 2400 MG PO DAILY EACH CAP 800 MG,VIT-D 200 IU,MAGNESIUM 100 MG [Echinacea] () 750 MG PO DAILY Discharge Exam Review of Systems: Constitutional: No fever, No chills, No weight loss, No weakness ENT: No hearing loss, No unusual epistaxis, No nasal symptoms Respiratory: No cough, No sputum, No wheezing Cardiovascular: + palpitations, No chest pain, No orthopnea, No PND, No edema, No claudication Abdomen: No pain, No nausea, No vomiting Genitourinary - Female: No dysuria, No urinary frequency Neurologic: No paralysis Psychiatric: No depression symptoms, No anhedonism Endocrine: No fatigue, No excessive thirst Integumentary: No rash, No itch Physical Exam: General Appearance: WD/WN, no apparent distress Neck: supple, no adenopathy Respiratory/Chest: chest non-tender, lungs clear, normal breath sounds Cardiovascular: regular rate, rhythm, no edema, no gallop Extremities: normal inspection, no calf tenderness Skin: normal color, warm/dry Lymphatic: no adenopathy Hospital Course History & Physical Date & Time of Service: Jul 22, 2017 at 04:48 Chief Complaint: Irregular Heartbeat Primary Care Physician: Alberto Mcnamara M.D. History of Present Illness Source: patient 66 y/o F Hx CLL, IgG/IgM deficiency, asthma. Pt presents with a chief compliant of palpitations. Has not had CP, SOB, n/v or diaphoresis. On arrival to the ER a diagnosis of new-onset AF was established with an initial rate of . Her rate responded has been consistently below 100, however, she describes persistent discomfort as she can feel the palpitations. Initial labs are notable for an elevated WBC count at 64 which is approximately 20 above her baseline. A D dimer was elevated and followed by a CTA which was negative for PE. Past Medical/Surgical History Active Problems 1. Allergic rhinitis 2. Arthritis 3. Asthma 4. Chronic lymphocytic leukemia 5. GERD without esophagitis 6. Hypertension 7. IgG deficiency 8. IgM deficiency 9. Osteopenia 10. 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 Endometriosis 13. Herpes zoster Surgical: Appendectomy, hysterectomy Family History Cancer Heart disease Hypertension Social History Smoking Status: Never Smoker Drug Use: none Marital Status: Housing status: lives with family Occupational Status: employed Immunizations History of Influenza Vaccine: Yes Influenza Vaccine Date: Jul 22, 2012 History of Tetanus Vaccine?: Yes History of Pneumococcal: Yes Pneumococcal Date: Dec 21, 2011 History of Hepatitis B Vaccine: Yes Hepatitis Immunization Date: Dec 20, 2010 Multi-Drug Resistant Organisms History of MDRO: No Allergies Coded Allergies: Molds & Smuts (Verified Allergy, Severe, SOB, itchy, watery eyes, 07/22/17 ) Cat Dander (Verified Allergy, Mild, itchy, watery eyes, 07/22/17) Chlorthalidone (Verified Allergy, Unknown, Dizzy, light headed, 07/22/17) Erythromycin (Verified Adverse Reaction, Intermediate, NAUSEA / VOMITING, 07/22/17) Lactose Intolerance (Verified Adverse Reaction, Unknown, GI SYMPTOMS, ) Home Medications Scheduled Ventura (Ventura), 3 TABLETS PO DAILY Ascorbic Acid (Ascorbic Acid), 30,000 MG PO DAILY Aspirin (Aspirin Chewable), 81 MG PO QOD Atenolol (Tenormin), 25 MG PO DAILY Cetirizine (Zyrtec), 10 MG PO DAILY Fluticasone Furoate-Vilanterol (Breo Ellipta), 1 INHA PO DAILY Garlic (Garlic), 1,000 MG PO DAILY Ipratropium-Albuterol (Duoneb), 1 TREATMENT INH TID Montelukast Sodium (Montelukast Sodium), 10 MG PO Q2D Multiple Vitamin (Multivitamin), 1 TAB PO DAILY Prednisone (Prednisone), 5 MG PO UD [Calcimate Plus], 2,400 MG PO DAILY [Echinacea], 750 MG PO DAILY Scheduled PRN Albuterol Inhaler (Ventolin Inhaler), 2 PUFFS INH Q6 PRN Lorazepam (Ativan), 0.5 MG PO HS PRN for Sleep Ondansetron Hcl (Zofran), 4 MG PO Q6H PRN for Nausea Review of Systems Constitutional: No fever, No chills, No sweats Eyes: No worsening of vision ENT: No hearing loss, No unusual epistaxis, No nasal symptoms Respiratory: No cough, No sputum, No wheezing, No shortness of breath Cardiovascular: + palpitations, No chest pain Abdomen: No pain, No nausea, No vomiting Musculoskeletal: No joint pain Genitourinary - Female: No dysuria, No hematuria Neurologic: No memory loss, No paralysis, No weakness Psychiatric: No depression symptoms Endocrine: No fatigue Hematologic / Lymphatic: No abnormal bleeding/bruising Integumentary: No rash Allergic / Immunologic: No environmental allergies Physical Exam Vital Signs Date Time Temp Pulse Resp B/P (MAP) Pulse Ox O2 Delivery O2 Flow Rate FiO2 07/22/17 04:16 90 17 96 07/22/17 04:09 124/82 07/22/17 04:05 120/79 07/22/17 04:02 120 110/76 07/22/17 04:01 92 16 110/76 93 07/22/17 03:57 111/76 07/22/17 03:46 106 16 95 07/22/17 03:31 104 17 118/87 90 07/22/17 03:26 79 17 97 07/22/17 03:01 127/74 07/22/17 02:56 91 17 98 07/22/17 02:50 134/76 07/22/17 02:31 125/83 07/22/17 02:26 84 19 95 07/22/17 02:25 87 19 144/87 95 Room Air 07/22/17 02:20 144/87 07/22/17 02:11 91 18 94 07/22/17 01:56 87 19 94 07/22/17 01:41 89 20 88 07/22/17 01:36 97 Room Air 07/22/17 01:32 82 07/22/17 01:24 167/89 07/22/17 01:16 36.5 91 18 152/83 99 Room Air General Appearance: WD/WN, no apparent distress Head: normocephalic Eyes: normal inspection ENT: normal ENT inspection, pharynx normal Neck: supple, no JVD Respiratory/Chest: chest non-tender, lungs clear, normal breath sounds, no respiratory distress, no accessory muscle use Cardiovascular: no JVD, no murmur, + irregularly irregular Abdomen/GI: normal bowel sounds, non tender, soft Back: normal inspection, no CVA tenderness, no muscle spasm, normal range of motion Extremities/Musculoskelatal: normal inspection, no calf tenderness, normal capillary refill, no pedal edema, normal range of motion Neurologic/Psych: juvenile court liaison II-XII nml as tested, no motor/sensory deficits, alert, oriented x 3 Skin: normal color, warm/dry, no rash Diagnostics Laboratory Results Results Past 24 Hours Test 07/22/17 01:30 07/22/17 01:38 07/22/17 01:55 Range/Units White Blood Count 64.01 4.8-10.8 K/uL Red Blood Count 3.76 4.2-5.4 M/uL Hemoglobin 12.6 12.0-16.0 g/dL Hematocrit 37.0 37-47 % Mean Corpuscular Volume 98.4 80-100 fL Mean Corpuscular Hemoglobin 33.5 25-34 pg Mean Corpuscular Hemoglobin Concent 34.1 32-36 g/dl Platelet Count 208 130-400 K/uL Mean Platelet Volume 9.8 7.4-10.4 fL Neutrophils (%) (Auto) 3.5 % Lymphocytes (%) (Auto) 95.3 % Monocytes (%) (Auto) 0.8 % Eosinophils (%) (Auto) 0.1 % Basophils (%) (Auto) 0.2 % Neutrophils # (Auto) 2.19 1.4-6.5 K/uL Lymphocytes # (Auto) 61.00 1.2-3.4 K/uL Monocytes # (Auto) 0.54 0.11-0.59 K/uL Eosinophils # (Auto) 0.09 0-0.5 K/uL Basophils # (Auto) 0.11 0-0.2 K/uL RDW Standard Deviation 48.4 36.4-46.3 fL RDW Coefficient of Variation 13.7 11.5-14.5 % Immature Granulocyte % (Auto) 0.1 % Immature Granulocyte # (Auto) 0.08 0.00-0.02 K/uL Smudge Cells PRESENT Prothrombin Time 10.6 9.0-12.0 SECONDS Prothromb Time International Ratio 1.0 0.9-1.1 D-Dimer 670 0-500 ug/L FEU Sodium Level 131 136-145 mmol/L Potassium Level 3.2 3.5-5.1 mmol/L Chloride Level 94 98-107 mmol/L Carbon Dioxide Level 29 21-32 mmol/L Anion Gap 8.0 3-11 mmol/L Blood Urea Nitrogen 10 7-18 mg/dl Creatinine 0.64 0.60-1.20 mg/dl Est Creatinine Clear Calc Drug Dose 77.6 ml/min Estimated GFR () 108.5 Estimated GFR (Non- 93.6 BUN/Creatinine Ratio 15.2 10-20 Random Glucose 97 70-99 mg/dl Calcium Level 8.8 8.5-10.1 mg/dl Magnesium Level 2.4 1.8-2.4 mg/dl Total Bilirubin 0.4 0.2-1 mg/dl Aspartate Amino Transf (AST/SGOT) 17 15-37 U/L Alanine Aminotransferase (ALT/SGPT) 25 12-78 U/L Alkaline Phosphatase 54 45-117 U/L Troponin I < 0.015 0-0.045 ng/ml Pro-B-Type Natriuretic Peptide 458 0-900 pg/ml Total Protein 7.7 6.4-8.2 gm/dl Albumin 4.4 3.4-5.0 gm/dl Globulin 3.3 2.5-4.0 gm/dl Albumin/Globulin Ratio 1.3 0.9-2 Thyroid Stimulating Hormone (TSH) 2.470 0.300-4.500 uIu/ml Urine Color YELLOW Urine Appearance CLEAR CLEAR Urine pH 8.0 4.5-7.5 Urine Specific [place] 1.008 1.000-1.030 Urine Protein NEG NEG Urine Glucose (UA) NEG NEG Urine Ketones NEG NEG Urine Occult Blood NEG NEG Urine Nitrite NEG NEG Urine Bilirubin NEG NEG Urine Urobilinogen NEG NEG Urine Leukocyte Esterase NEG NEG Lactic Acid Level 0.6 0.4-2.0 mmol/L Diagnostic Radiology CTA: EKG AF - rate 88BPM - no acute ischemic changes Impression Assessment and Plan 66 y/o F Hx CLL, IgG/IgM deficiency, asthma. Pt presents with a chief compliant of palpitations. Has not had CP, SOB, n/v or diaphoresis. On arrival to the ER a diagnosis of new-onset AF was established with an initial rate of . Her rate responded has been consistently below 100, however, she describes persistent discomfort as she can feel the palpitations. Initial labs are notable for an elevated WBC count at 64 which is approximately 20 above her baseline. A D dimer was elevated and followed by a CTA which was negative for PE. 1) New onset AF - rate controlled however palpitations are symptomatic - pt may then require cardioversion. We will consult cardio, place her on full dose Lovenox and TID Lopressor. An echo has been ordered. 2) CLL - no current treatment - rising WBC count - pt's casket liner consulted 3) Asthma - will remain on current inhalers - try to avoid additional Albuterol if possible 4) IgG/IgM deficiencies - receives monthly IgG infusion Full code - Full dose Lovenox Total time for this admit including review of labs, meds, imaging - discussion with pt and ER attending - 37 min Level of Care Telemetry Resuscitation Status FULL RESUSCITATION VTE Prophylaxis VTE Risk Assessment Done? Y/N: Yes Risk Level: Moderate Given or contraindicated: Enoxaparin (Lovenox)SQ Hospital Course Patient was admitted with paroxysmal A. Fib. Patient was seen and consulted with Cardiology on same day of admission. Was stated that 50% of New onset a. fib convert back to sinus within 24 hours. Patient was rate controlled with beta blockers: atenolol 25mg PO daily, and metoprolol 12.5mg PO TID. Patient was no luiz during her hospital stay. Patient spontaneously converted back to sinus rhythm. There was discussion about the anticoag of choice as well as which one insurance will cover. Patient has no contraindications for xarelto, despite having mild mitral and tricuspid regurgitation, as these are not contraindications to xarelto. Instructions on how to take medicine were discussed as well as side effects and risks. Patient showed understanding. Patient is thinking of changing insurance next year, in September. so she would like to try this medication for the mean time. In regards to her CLL, it appears to be stable as Hem/Onc was consulted with no recommendations. All questions from patient were answered. Total Time Spent: Greater than 30 minutes This includes examination of the patient, discharge planning, medication reconciliation, and communication with other providers. Discharge Instructions Please refer to the electronic Patient Visit Report (Discharge Instructions) for additional information. Follow-Up Please, follow up at Dr. Mcnamara's office with Tamy Cortes PA-C on FridayJuly 25 at 11:15 am. Pt will be going home on Xarelto so I call to cancel the anticoagulation clinic appt. I arrange a follow up appt at [facility] w/ Vania Romeo PA-C on FridayAugust 01 at 1:30 pm. Additional Copies To Alberto Mcnamara M.D.
[2017-07-22] MEDS ORDERED: MONTELUKAST SOD 10 MG TAB PO SCH (21:00)
== END 2017-07-22 17:50 | disposition home or self-care (01) ==
LOC: C.EDB 01:12 → C.2T 04:31 → ENRESERV 04:36
PROVIDERS: ADMIT Internal Medicine; ATTEND Internal Medicine
DX: I48.0 Paroxysmal atrial fibrillation (principal); C91.10 Chronic lymphocytic leukemia of B-cell type not having achieved remission; I10 Essential (primary) hypertension; J45.909 Unspecified asthma, uncomplicated; Z86.711 Personal history of pulmonary embolism; Z90.89 Acquired absence of other organs; Z98.890 Other specified postprocedural states; Z90.710 Acquired absence of both cervix and uterus; Z88.1 Allergy status to other antibiotic agents; Z79.899 Other long term (current) drug therapy; Z80.9 Family history of malignant neoplasm, unspecified; Z82.49 Family history of ischemic heart disease and other diseases of the circulatory system

== ENCOUNTER → 2017-09-03 | Outpatient (CLI) | payer OTHER, BC ==
[~2017-09-03] MED LIST changes: -ASMANEX 220 MCG INH; +FLUT1INH PO; +PRED-301 PO; +RIVA1TAB4 PO
[2017-09-03 19:04] LABS: ALT/SGPT 39 U/L (12-78); AST/SGOT 27 U/L (15-37); BLOOD UREA NITROGEN 11 mg/dl (7-18); BUN/CREATININE RATIO 17.3 (10-20); CALCIUM 8.9 mg/dl (8.5-10.1); CARBON DIOXIDE 29 mmol/L (21-32); CHLORIDE 90 mmol/L (98-107); CREATININE 0.62 mg/dl (0.60-1.20); GLUCOSE 82 mg/dl (70-99); POTASSIUM 4.2 mmol/L (3.5-5.1); SODIUM 123 mmol/L (136-145)
[2017-09-03 19:07] LABS: ALB/GLOB RATIO 1.1 (0.9-2); ALKALINE PHOSPHATASE 58 U/L (45-117)
[2017-09-03 19:48] LABS: HEMATOCRIT 35.1 % (37-47); MEAN CELL VOLUME 99.7 fL (80-100); MEAN CORPUSCULAR HEMOGLOBIN 34.4 pg (25-34); MEAN CORPUSCULAR HGB CONC 34.5 g/dl (32-36); MEAN PLATELET VOLUME 10.6 fL (7.4-10.4); PLATELET COUNT 178 K/uL (130-400); RED BLOOD COUNT 3.52 M/uL (4.2-5.4); WHITE BLOOD COUNT 47.32 K/uL (4.8-10.8)
[2017-09-03 19:50] LABS: COMPLETE YES; EOSINOPHIL % 1.8 %; LYMPH ABS # 32.56 K/uL (1.2-3.4); LYMPHOCYTE % 68.8 %; NEUTROPHILS % 3.7 %; SMUDGE CELLS PRESENT; VARIANT LYM ABS # 12.16 K/uL; VARIANT LYMPHOCYTE % 25.7 %
[2017-09-03 20:50] LABS: LYME DISEASE AB IGG NEG (NEG); LYME DISEASE AB IGM NEG (NEG)
[2017-09-03 22:06] LABS: URINE APPEARANCE CLEAR (CLEAR); URINE BILIRUBIN NEG (NEG); URINE COLOR YELLOW; URINE EPITHELIAL CELL AUTO 0-5 /lpf (0-5); URINE NITRITE NEG (NEG); URINE PH 7.5 (4.5-7.5); UROBILINOGEN NEG (NEG)
[2017-09-03 22:08] LABS: MANUAL MICROSCOPIC REQUIRED? NO; REVIEW REQ? NO
== END | disposition home or self-care (01) ==
LOC: C.LAB 17:35
PROVIDERS: ATTEND Internal Medicine
DX: D80.3 Selective deficiency of immunoglobulin G [IgG] subclasses (principal); R21 Rash and other nonspecific skin eruption

== ENCOUNTER → 2017-09-08 | Outpatient (CLI) | payer OTHER, BC ==
[2017-09-08 12:33] LABS: BLOOD UREA NITROGEN 8 mg/dl (7-18); BUN/CREATININE RATIO 13.5 (10-20); CALCIUM 8.6 mg/dl (8.5-10.1); CARBON DIOXIDE 28 mmol/L (21-32); CHLORIDE 101 mmol/L (98-107); CREATININE 0.59 mg/dl (0.60-1.20); GLUCOSE 71 mg/dl (70-99); POTASSIUM 4.1 mmol/L (3.5-5.1); SODIUM 135 mmol/L (136-145)
== END | disposition home or self-care (01) ==
LOC: C.LAB 09:51
PROVIDERS: ATTEND Internal Medicine
DX: R79.9 Abnormal finding of blood chemistry, unspecified (principal)

== ENCOUNTER → 2018-01-21 | Outpatient (CLI) | payer OTHER, BC ==
[2018-01-21 17:18] LABS: INR 2.3 (0.9-1.1)
== END | disposition home or self-care (01) ==
LOC: C.LABBFT 13:23
PROVIDERS: ATTEND Internal Medicine Clinical Cardiac Electrophysiology
DX: I48.91 Unspecified atrial fibrillation (principal)

== ENCOUNTER → 2018-01-24 | Outpatient (CLI) | payer OTHER, BC | END | disposition home or self-care (01) | LOC: C.LAB 09:21 | PROVIDERS: ATTEND Internal Medicine | DX: I10 Essential (primary) hypertension (principal); R00.2 Palpitations; I48.91 Unspecified atrial fibrillation; R79.9 Abnormal finding of blood chemistry, unspecified; M85.80 Other specified disorders of bone density and structure, unspecified site ==

== ENCOUNTER 2020-07-05 13:02 | Inpatient (IN) ==
[2020-07-05] MEDS ORDERED: METOPROLOL TARTRATE 1 MG/ML VIAL IV STA (13:19)
[2020-07-05] MEDS ORDERED: SODIUM CHLORIDE 0.9% 500 ML IV SCH (13:30)
--- NOTE | 2020-07-05 13:45 | XRay Report ---
XR chest 1V portable CLINICAL HISTORY: Palpitations COMPARISON STUDY: 02/17/2019 FINDINGS: The heart is borderline enlarged. There is no failure. There is no lobar consolidation. The re is a left midlung zone calcified granuloma. There is blunting of the right lateral costophrenic an gle suggesting a trace effusion. There are minor atelectatic changes at the right lung base[ IMPRESSION: 1. Suspected trace right pleural effusion with minor right basilar atelectasis 2. No evidence of failure. No evidence of pneumonia. ACT 112: Negative or not required by law. Electronically signed by: Miguel Angel Garcia M.D. 07/05/2020 1:44 PM
[2020-07-05 13:59] LABS: Hematocrit (blood only) 36.2 % (37-47); Hemoglobin 12.3 g/dL (12.0-16.0); Immature Granulocytes # (auto) 0.01 K/uL (0.00-0.02); Immature Granulocytes % (auto) 0.1 %; Lymphocytes # (auto) 0.39 K/uL (1.2-3.4); Lymphocytes % (auto) 5.3 %; Mean Corpuscular Hemoglobin 33.7 pg (25-34); Mean Corpuscular Volume 99.2 fL (80-100); Mean Platelet Volume 10.4 fL (7.4-10.4); Monocytes # (auto) 0.62 K/uL (0.11-0.59); Monocytes % (auto) 8.4 %; Neutrophils # (auto) 6.34 K/uL (1.4-6.5); Neutrophils % (auto) 86.2 %; Platelet Count 194 K/uL (130-400); RDW Coefficient of Variation 12.9 % (11.5-14.5); RDW Standard Deviation 47.3 fL (36.4-46.3); Red Blood Count 3.65 M/uL (4.2-5.4); White Blood Count 7.36 K/uL (4.8-10.8)
[2020-07-05 14:16] LABS: Alanine Aminotransferase 28 U/L (12-78); Aspartate Aminotransferase 18 U/L (15-37); BUN Creatinine Ratio 11.3 (10-20); Blood Urea Nitrogen 8 mg/dl (7-18); Carbon Dioxide 31 mmol/L (21-32); Chloride 95 mmol/L (98-107); Est GFR (African American) 104.2; Est GFR (Non-African American) 89.9; Glucose 85 mg/dl (70-99); Magnesium 2.2 mg/dl (1.8-2.4); Potassium 4.4 mmol/L (3.5-5.1); Sodium 129 mmol/L (136-145)
[2020-07-05 14:22] LABS: Partial Thromboplastin Time 28.9 Seconds (21.0-31.0); Prothrombin Time 10.8 Seconds (9.0-12.0)
[2020-07-05 14:34] LABS: Albumin Globulin Ratio 1.2 (0.9-2); Alkaline Phosphatase 119 U/L (45-117); Bilirubin,Total 0.4 mg/dl (0.2-1); Globulin 3.3 gm/dl (2.5-4.0); Total Protein 7.3 gm/dl (6.4-8.2); Troponin I < 0.015 ng/ml (0-0.045)
--- NOTE | 2020-07-05 14:41 | Electrocardiogram Report ---
Test Reason : Blood Pressure : / mmHG Vent. Rate : 051 BPM Atrial Rate : 051 BPM P-R Int : 220 ms QRS Dur : 100 ms QT Int : 408 ms P-R-T Axes : 000 -37 041 degrees QTc Int : 376 ms Sinus bradycardia with 1st degree A-V block Left axis deviation Incomplete right bundle branch block Nonspecific ST abnormality Abnormal ECG When compared with ECG of 25-MAR-2019 07:54, Premature atrial complexes are no longer Present Incomplete right bundle branch block is now Present Nonspecific T wave abnormality no longer evident in Inferior leads QT has shortened Confirmed by Dhaval Miller ([id number]) on 07/05/2020 2:41:25 PM Referred By: Luis Daniel Miller Confirmed By:Jeff Miller
--- NOTE | 2020-07-05 14:51 | Emergency Department Note ---
Impression & Plan Bradycardia, Tachycardia-bradycardia syndrome, Dizziness, Acute hyponatremia ED Provider Note NAME: ALEC MORENO AGE: 69 SEX: F : 1950 ARRIVES VIA: Walk-In INFORMANT: Patient, ED PROVIDER(S): Peyman Cleaning DO CHIEF COMPLAINT: Palpitations HPI: The patient is a 69-year-old female who presented to the emergency departm ent for an evaluation of palpitations. The patient states that she has been experiencing palpitations as well as near syncope. The patient states that she is been having symptoms over the last few weeks. She denies having any nausea or vomiting. She has had no recent diarrhea or illnesses. She has no abdominal pain. She does describe dizziness upon standing. She states that her pulse rate has been intermittently fast and then slow. She states that she is had similar symptoms in the past. The patient had recent changes in her cardiac medications. She had her beta-colton decreased and her flecainide increased recently. She states that she has been compliant with her medications oth erwise. She is had no falls. ROS: See above HPI for pertinent positives & negatives. A total of 10 systems reviewed and were otherwise negative. PAST MEDICAL HISTORY: See Below PAST SURGICAL HISTORY: See Below FAMILY HISTORY: See Below SOCIAL HISTORY: See Below HOME MEDICATIONS: See Below ALLERGIES: See Below VITALS: See Below PHYSICAL EXAMINATION: GENERAL: Patient is awake alert in no acute distress patient is resting comfortably and showing no signs of anxiety EYES: The conjunctivae are clear. The pupils are round and reactive. EARS, NOSE, MOUTH AND THROAT: The nose is without any evidence of any deformity. Mucous membranes are moist. Tongue is midline. NECK: The neck is nontender and supple. RESPIRATORY: Normal respiratory effort was noted. Diminished breath sounds with scattered rhonchi were noted throughout. There was no conversational dyspnea or tachypnea. CARDIOVASCULAR: Bradycardic rate with regular rhythm was noted. No definite murmur was noted to auscultation. GASTROINTESTINAL: The abdomen is soft. Abdomen is nontender. MUSCULOSKELETAL/EXTREMITIES: There is no evidence of gross deformity full range of motion is noted in the hips and shoulders. SKIN: There is no obvious evidence of any rash. There are no petechiae, pallor or cyanosis noted. NEUROLOGIC: Patient is awake alert and oriented x3 strength is symmetric patellar reflexes are 2+ bilaterally MEDICAL DECISION MAKING: The patient is a 69-year-old female who presented to the emergency department for an evaluation of dizziness and palpitations. The patient has a history of of cardiac dysrhythmia. The patient is taking flecainide as well as metoprolol. She had recent changes to her medications. She presents emergency department today with dizziness and slow heart rate. The patient was complaining of some chest discomfort but none today. She does currently take oral anticoagulation as well. I discussed the patient's laboratory and radiographic studies with her. She is consistently been bradycardic in the emergency department and symptomatic when she goes to ambulate. For this reason I discussed her case with her primary email campaign manager. She was evaluated in the emergency department by her primary email campaign manager. She was reevaluated multiple times. It was felt the patient may require further inpatient monitoring and then possible pacemaker placement. For this reason I will discuss this case with the on-call [facility] hospitalist. Triage Nursing notes reviewed. Prior medical records reviewed Vital Signs: reviewed and remarkable for bradycardia and hypertension. Differential diagnosis: Premature contractions, electrolyte abnormality, cardiac dysrhythmia, thyroid dysfunction, pulmonary embolism, infection, gastrointestinal, as well as other pathologies. ER treatment provided: See below Diagnostics interpreted by me: ECG: EKG was obtained in the emergency department. My interpretation is sinus bradycardia at 51 bpm. First-degree AV block was noted. There was inferior ST segment abnormalities noted. This was compared to a tracing from March 252018. PACs were noted on the previous tracing. This is no longer appreciated. The ST segment abnormalities appears unchanged from previous. Cardiac Monitoring: An order was placed for continuous cardiac monitoring. The monitor shows a rate of 50 beats per minute with sinus bradycardia rhythm. Laboratory studies: As stated above and show below. Imaging studies: See below Consultation(s): 1500: I discussed this case with Dr. Miller. He will evaluate the patient in the emergency department for further management. 1555: I discussed this case with Dr. Baird who is on-call for [facility] and the hospitalist. They will evaluate the patient in the emergency department for further management and disposition. Past Med/Surg History Medical History Anemia CHRONIC. IVIG INFUSIONS Q4 WEEKS INDICATED. Asthma H/O. NO PROBLEMS CURRENTLY. Atrial fibrillation with RVR Cardiac murmur Mild TR and MR noted on 2017 echo. CLL (chronic lymphocytic leukemia) Chronic lymphocytosis. Hypertension Migraine H/O Mycobacterium avium complex On anticoagulant therapy Osteoarthritis Paroxysmal atrial fibrillation Peptic ulcer disease H/O Pneumonia DECEMBER 2018. TREATED [place], RECOVERED. Surgical History H/O reduction mammoplasty History of appendectomy History of arthroscopy RIGHT KNEE History of bronchoscopy 02/2019 for evaluation of possible TB. Bronchial washings showed benign findings. History of cardiac cath NO STENTS. 2001. History of carpal tunnel release BILATERAL History of colonoscopy History of esophagogastroduodenoscopy (EGD) History of repair of rotator cuff RIGHT SHOULDER History of tonsillectomy Hx of vaginal hysterectomy S/P bilateral breast reduction Family History Mother Colon cancer Uterine cancer Sister Colon cancer Father Prostate cancer Denies family history of Ovarian cancer Breast cancer Social History Smoking Status: Never smoker Second Hand Exposure: No; Hx Alcohol Use: No Hx Substance Use: No Preferred Language: Iraqi Communication Ability: Effective Visual Impairment: No Limitations Hearing Ability: Normal Zinc Plater Required: No Beliefs That Will Affect Care: None marital status: Current Living Situation: Spouse current occupational status: retired Feels Safe at Home: Yes Childhood Exposure to Second-Hand Smoke: No Dental Care, Regularly: Yes Physical Activity Frequency: 5-6 Times per Week Seatbelt Use: always Sunscreen Use: Yes Assistive Devices: Glasses Allergies Allergies Allergy/AdvReac Type Severity Reaction Status Date / Time mold Allergy Severe SOB, Verified 05/18/20 07:51 itchy, watery eyes cat dander Allergy Mild itchy, Verified 05/18/20 07:51 watery eyes chlorthalidone Allergy Unknown Dizzy, Verified 05/18/20 07:51 light headed chocolate flavor Allergy Unknown Verified 05/18/20 07:51 egg Allergy Unknown Verified 05/18/20 07:51 gluten Allergy Verified 05/18/20 07:51 erythromycin base AdvReac Intermediate NAUSEA / Verified 05/18/20 07:51 VOMITING lactose AdvReac Unknown GI SYMPTOMS Verified 05/18/20 07:51 dabigatran etexilate AdvReac SKIN PEELS Verified 05/18/20 07:51 [From Pradaxa] rivaroxaban [From Xarelto] AdvReac SKIN Verified 05/18/20 07:51 PEELING Home Meds Home Medications Medication Instructions Recorded Confirmed Zyrtec 10 mg PO DAILY 02/17/19 06/26/20 ascorbic acid (vitamin C) 3 g PO DAILY 02/17/19 06/26/20 ipratropium-albuterol 1 ml INHALATION TID PRN 02/17/19 05/18/20 multivitamin 1 tab PO DAILY 02/17/19 06/26/20 vitamin B complex 1 cap PO DAILY 02/17/19 06/26/20 Calcium 600 + Minerals 1 tab PO TID 03/02/19 06/26/20 albuterol sulfate 90 mcg/actuation 2 puffs INHALATION Q6H PRN #1 gm 05/11/19 05/18/20 aerosol inhaler melatonin 3 mg capsule 3 mg PO HS PRN 09/01/19 06/26/20 metoprolol tartrate 25 mg tablet 50 mg PO BID tab 09/10/19 06/26/20 amikacin liposomal 590 mg/8.4 mL 590 mg INH DAILY 03/01/20 05/18/20 susp for inhalation, nebulizer acces. immune globulin (human) (IgG) 2.5 See Rx Instructions IV .COMPLEX 03/01/20 05/18/20 gram intravenous solution venetoclax 100 mg tablet 400 mg PO DAILY tab 03/01/20 06/26/20 filgrastim 300 mcg/0.5 mL 300 mcg SQ .COMPLEX PRN 03/20/20 05/18/20 injection syringe turmeric 1,000 mg PO DAILY 05/09/20 06/26/20 azithromycin 500 mg tablet 500 mg PO .three times per week 05/18/20 05/18/20 tab lactobacillus combination no.8 3 3,000 mmu cells PO DAILY 05/18/20 06/26/20 billion cell capsule Previous Rx's Medication Instructions Recorded furosemide 20 mg tablet 20 mg PO .3xweek #60 tab 09/08/19 flecainide 50 mg tablet 50 mg PO Q12H #180 tab 05/03/20 apixaban 5 mg tablet 5 mg PO BID #60 tab 06/19/20 ethambutol 400 mg tablet 800 mg PO TID #24 tab 06/21/20 potassium chloride 10 mEq 10 meq PO 3XWK #60 tab 06/26/20 tablet,extended release Results & Data (ED) Vital Signs Vital Signs - 24 hr 07/05/20 13:09 07/05/20 14:07 Temperature 36.8 C Temperature Source Oral Pulse Rate 126 H Respiratory Rate 17 Respiratory Effort / Characteristics Non-Labored Spontaneous Respiratory Depth Normal Respiratory Pattern Regular Blood Pressure 143/103 H Blood Pressure Mean 116 Pulse Oximetry 96 Oxygen Delivery Method Room Air Room Air Sepsis Recent Fever Within 48 Hours No Sepsis New/Unexplained Change in Mental Status No Sepsis Action Taken by Nursing No Action Required Home Medications Current Medication List: was personally reviewed by me Laboratory Data Attestation: I reviewed the patient's lab results. Result diagrams: 07/05/20 13:46 07/05/20 13:46 Lab Results 07/05/20 07/05/20 07/05/20 Range/Units 13:46 13:46 13:46 WBC 7.36 (4.8-10.8) K/uL RBC 3.65 L (4.2-5.4) M/uL Hgb 12.3 (12.0-16.0) g/dL Hct 36.2 L (37-47) % MCV 99.2 (80-100) fL MCH 33.7 (25-34) pg MCHC 34.0 (32-36) g/dL RDW Std Deviation 47.3 H (36.4-46.3) fL RDW Coeff of Imani 12.9 (11.5-14.5) % Plt Count 194 (130-400) K/uL MPV 10.4 (7.4-10.4) fL Immature Gran % (Auto) 0.1 % Neut % (Auto) 86.2 % Lymph % (Auto) 5.3 % [place] % (Auto) 8.4 % Eos % (Auto) 0.0 % Baso % (Auto) 0.0 % Neut # (Auto) 6.34 (1.4-6.5) K/uL Lymph # (Auto) 0.39 L (1.2-3.4) K/uL [place] # (Auto) 0.62 H (0.11-0.59) K/uL Eos # (Auto) 0.00 (0-0.5) K/uL Baso # (Auto) 0.00 (0-0.2) K/uL Immature Gran # (Auto) 0.01 (0.00-0.02) K/uL PT 10.8 (9.0-12.0) Seconds INR 1.0 (0.9-1.1) APTT 28.9 (21.0-31.0) Seconds PTT Ratio 1.0 Sodium 129 L (136-145) mmol/L Potassium 4.4 (3.5-5.1) mmol/L Chloride 95 L (98-107) mmol/L Carbon Dioxide 31 (21-32) mmol/L Anion Gap 3.0 (3-11) BUN 8 (7-18) mg/dl Creatinine 0.68 (0.6-1.2) mg/dl Est Cr Clr Drug Dosing Not Reportable Est GFR ( Amer) 104.2 Est GFR (Non-Af Amer) 89.9 BUN/Creatinine Ratio 11.3 (10-20) Glucose 85 (70-99) mg/dl Calcium 9.0 (8.5-10.1) mg/dl Magnesium 2.2 (1.8-2.4) mg/dl Total Bilirubin 0.4 (0.2-1) mg/dl AST 18 (15-37) U/L ALT 28 (12-78) U/L Alkaline Phosphatase 119 H (45-117) U/L Troponin I < 0.015 (0-0.045) ng/ml Total Protein 7.3 (6.4-8.2) gm/dl Albumin 4.0 (3.4-5.0) gm/dl Globulin 3.3 (2.5-4.0) gm/dl Albumin/Globulin Ratio 1.2 (0.9-2) TSH 1.220 (0.300-4.500) uIu/ml Administered Medications Discontinued Medications Sodium Chloride (Nss) 500 mls @ 999 mls/hr IV .Q31M ARNIE Stop: 07/05/20 14:00 Last Admin: 07/05/20 14:06 Dose: 999 mls/hr Documented by: [id number] Metoprolol Tartrate (Metoprolol Tartrate 1 Mg/Ml Vial) 5 mg IV NOW STA Stop: 07/05/20 13:20 Last Admin: 07/05/20 14:06 Dose: Not Given Documented by: [id number] Imaging Data Radiologist's Impression: Patient: ALEC MORENO Admit Date: 07/05/20 MR#: [id number] Address1: [address] [place] [address] DR Trimble ID:[id number] Address2: Date: 1950 [facility] Zip: [place] [address] Age: 69 Location: ED Sex: F Room/Bed: Att Phy: Diagnosis: AFIB - SENT BY DR Umaña Phy: Alberto Mcnamara MD Service Date: 07/05/20 [facility] Phy: Interpreting Phy: Miguel Angel Garcia MD Admit Phy: Ordering Phy: Peyman Cleaning, DO cc: ~ XR chest 1V portable CLINICAL HISTORY: Palpitations COMPARISON STUDY: 02/17/2019 FINDINGS: The heart is borderline enlarged. There is no failure. There is no lobar consolidation. There is a left midlung zone calcified granuloma. There is blunting of the right lateral costophrenic angle suggesting a trace effusion. There are minor atelectatic changes at the right lung base[ IMPRESSION: 1. Suspected trace right pleural effusion with minor right basilar atelectasis 2. No evidence of failure. No evidence of pneumonia. ACT 112: Negative or not required by law. Electronically signed by: Miguel Angel Garcia M.D. 07/05/2020 1:44 PM Dictated: 07/05/20 1343 Transcribed: 07/05/20 1343 Blood Pressure Blood Pressure Findings: Elevated blood pressure Blood Pressure Disposition: further management by hospitalist Discharge Plan Visit Data Chief Complaint: Arrhythmia/Palpitations Stated Complaint: AFIB - SENT BY DR ROWAN Provider: Peyman Cleaning Discharge Problem: Bradycardia, Tachycardia-bradycardia syndrome, Dizziness, Acute hyponatremia Patient Disposition: Being Evaluated by Hospitalist Condition: Good Forms Stand Alone Forms: My [employer] Prescriptions Prescriptions: No Action furosemide 20 mg tablet 20 mg PO .3xweek Qty: 60 RF: 6 metoprolol tartrate 25 mg tablet 50 mg PO BID RF: 0 flecainide 50 mg tablet 50 mg PO Q12H Qty: 180 RF: 1 Eliquis 5 mg tablet 5 mg PO BID Qty: 60 RF: 5 ethambutol 400 mg tablet 800 mg PO TID Qty: 24 RF: 5 potassium chloride [Klor-Con 10] 10 mEq tablet extended release 10 meq PO 3XWK Qty: 60 RF: 5 melatonin 3 mg capsule 3 mg PO HS PRNRF: 0 Arikayce 590 mg/8.4 mL suspension for nebulization 590 mg INH DAILY RF: 0 Venclexta 100 mg tablet 400 mg PO DAILY RF: 0 immune globulin (human) (IgG) 2.5 gram recon soln See Rx Instructions IV .COMPLEX RF: 0 Neupogen 300 mcg/0.5 mL syringe 300 mcg SQ .COMPLEX PRNRF: 0 albuterol sulfate 90 mcg/actuation HFA aerosol inhaler 2 puffs inhalation Q6H PRN (Reason: shortness of breath or wheezing) Qty: 1 RF: 0 turmeric 1,000 mg PO DAILY RF: 0 azithromycin 500 mg tablet 500 mg PO .three times per week RF: 0 Adult Probiotic 3 billion cell capsule 3,000 mmu cells PO DAILY RF: 0 ipratropium-albuterol 0.5 mg-3 mg(2.5 mg base)/3 mL solution for nebulization 1 ml inhalation TID PRN (Reason: Shortness Of Breath) RF: 0 multivitamin Tablet 1 tab PO DAILY RF: 0 ascorbic acid (vitamin C) Powder 3 g PO DAILY RF: 0 vitamin B complex Capsule 1 cap PO DAILY RF: 0 Zyrtec 10 mg Capsule 10 mg PO DAILY RF: 0 Calcium 600 + Minerals 600 mg calcium- 200 unit Tablet 1 tab PO TID RF: 0 Referrals Referrals: Alberto Mcnamara MD [Primary Care Provider] -
--- NOTE | 2020-07-05 16:34 | Cardiology Consultation ---
Date of Consultation July 05, 2020 Assessment & Plan (1) Tachycardia-bradycardia syndrome: While we have not definitively documented atrial fibrillation, this would be the most likely explanation for her periods of tachycardia. I suspect we will be able to document some atrial fibrillation during telemetry monitoring overnight. I am concerned that she has elements of bradycardia time which produce symptoms. It is very possible she has conversion pauses as well. I do not think we can increase her rate control very aggressively given her resting bradycardia. I think she would certainly feel better and we will have more options with respect to treatment of her atrial fibrillation if she had a pacemaker. We did discuss this as an outpatient previously. Given her current symptoms infrequent episodes of tachycardia and palpitations she is agreeable. Will plan on proceeding tomorrow. I will hold her Eliquis for the time being to facilitate pacer placement tomorrow. (2) Dizziness: I think some of her dizziness is associated with her atrial fibrillation and an episode of syncope possibly associated with a conversion pause. However, she does seem to have dizziness at other times not easily explained by bradycardia or arrhythmia. Perhaps would have a better understanding while she is on telemetry. She does not appear to be overtly orthostatic. History of Present Illness Reason for Consultation: Dizziness, bradycardia Requesting Physician: Black History of Present Illness The patient is a 61-year-old woman with longstanding history of paroxysmal and persistent atrial fibrillation. She is admitted to the hospital 2016 for an extended episode of atrial fibrillation. She converted spontaneously at that time. In the past she has been tried on a variety of anticoagulants with some intolerance. Recently she settled on Eliquis which she appears to be tolerating quite well. Her symptoms of atrial fibrillation of waxes and wanes in severity over the years. At 1 point she actually sought an evaluation at the [facility] for possible ablation. They recommended initiation of anti arrhythmic therapy with catheter based therapy as a backup. They are the ones that suggested she try Eliquis and she has been tolerating the medication well she was also started on flecainide subsequent to that visit with good effect for some time. However, over the past couple of months she has been having more frequent episodes palpitations and tachycardia. These have not been definitively captured or documented to be atrial fibrillation, but her symptoms are similar and they certainly sound like atrial fibrillation. She has also been having symptoms of dizziness and lightheadedness. She did suffer a syncopal episode a few weeks ago while visiting her son. The relationship between her atrial fibrillation, dizziness and syncope is unclear. Today she appear to be having more dizziness. She walked a great deal yesterday and today has been having more frequent palpitations and rapid heartbeats. This has been associated with some dizziness. The dizziness is not exclusively exertional period she did have some dizziness while ambulating to the bathroom here in the emergency room. His dizziness appears to be persistent despite normal heart rates at this time. Allergies Allergy/AdvReac Type Severity Reaction Status Date / Time mold Allergy Severe SOB, Verified 05/18/20 07:51 itchy, watery eyes cat dander Allergy Mild itchy, Verified 05/18/20 07:51 watery eyes chlorthalidone Allergy Unknown Dizzy, Verified 05/18/20 07:51 light headed chocolate flavor Allergy Unknown Verified 05/18/20 07:51 egg Allergy Unknown Verified 05/18/20 07:51 gluten Allergy Verified 05/18/20 07:51 erythromycin base AdvReac Intermediate NAUSEA / Verified 05/18/20 07:51 VOMITING lactose AdvReac Unknown GI SYMPTOMS Verified 05/18/20 07:51 dabigatran etexilate AdvReac SKIN PEELS Verified 05/18/20 07:51 [From Pradaxa] rivaroxaban [From Xarelto] AdvReac SKIN Verified 05/18/20 07:51 PEELING Home Medications Home Medications Medication Instructions Recorded Confirmed Type Arikayce 590 mg INHALATION DAILY 07/05/20 07/05/20 History Eliquis 5 mg PO BID 07/05/20 07/05/20 History Gammagard Liquid See Rx Instructions .ROUTE .COMPLEX 07/05/20 07/05/20 History Neupogen 300 mcg SUBCUT DIRECTED 07/05/20 07/05/20 History Raw Green Superfoods Caps 2,000 mg PO DAILY 07/05/20 07/05/20 History Turmeric Cap 1,000 mcg PO DAILY 07/05/20 07/05/20 History Venclexta 400 mg PO DAILY 07/05/20 07/05/20 History Women's Multivitamin 1 tab PO DAILY 07/05/20 07/05/20 History albuterol sulfate [Ventolin HFA] 2 puff INHALATION Q6H PRN 07/05/20 07/05/20 History azithromycin 500 mg PO 3XWK 07/05/20 07/05/20 History calcium cit mal-vit D2-mag ox 3 tab PO DAILY 07/05/20 07/05/20 History cetirizine [Zyrtec] 10 mg PO DAILY 07/05/20 07/05/20 History ethambutol 800 mg PO 3XWK 07/05/20 07/05/20 History flecainide 100 mg PO Q12H 07/05/20 07/05/20 History furosemide 20 mg PO 3XWK 07/05/20 07/05/20 History ipratropium-albuterol 3 ml INHALATION QID PRN 07/05/20 07/05/20 History lactobacillus combo no.6 0 cell PO WM 07/05/20 07/05/20 History potassium chloride 10 meq PO 3XWK 07/05/20 07/05/20 History prochlorperazine maleate 10 mg PO TID PRN 07/05/20 07/05/20 History vitamin B complex 1 cap PO DAILY 07/05/20 07/05/20 History metoprolol tartrate 50 mg PO BID 30 Days #60 tab 07/07/20 Rx Patient History Medical History Anemia CHRONIC. IVIG INFUSIONS Q4 WEEKS INDICATED. Asthma H/O. NO PROBLEMS CURRENTLY. Atrial fibrillation with RVR Cardiac murmur Mild TR and MR noted on 2017 echo. CLL (chronic lymphocytic leukemia) Chronic lymphocytosis. Hypertension Migraine H/O Mycobacterium avium complex On anticoagulant therapy Osteoarthritis Paroxysmal atrial fibrillation Peptic ulcer disease H/O Pneumonia DECEMBER 2018. TREATED AT [place], RECOVERED. Surgical History H/O reduction mammoplasty History of appendectomy History of arthroscopy RIGHT KNEE History of bronchoscopy 02/2019 for evaluation of possible TB. Bronchial washings showed benign findings. History of cardiac cath NO STENTS. 2001. History of carpal tunnel release BILATERAL History of colonoscopy History of esophagogastroduodenoscopy (EGD) History of repair of rotator cuff RIGHT SHOULDER History of tonsillectomy Hx of vaginal hysterectomy S/P bilateral breast reduction Family History Mother Colon cancer Uterine cancer Sister Colon cancer Father Prostate cancer Denies family history of Ovarian cancer Breast cancer Social History Smoking Status: Never smoker Second Hand Exposure: No; Hx Alcohol Use: No Hx Substance Use: No Preferred Language: British Communication Ability: Effective Visual Impairment: No Limitations Hearing Ability: Normal Client Representative Required: No Beliefs That Will Affect Care: None marital status: Current Living Situation: Family current occupational status: retired Feels Safe at Home: Yes Childhood Exposure to Second-Hand Smoke: No Dental Care, Regularly: Yes Physical Activity Frequency: 5-6 Times per Week Seatbelt Use: always Sunscreen Use: Yes Assistive Devices: Brace/Splint/Immobilizer Review of Systems Review of Systems: All systems reviewed & are unremarkable except as noted in HPI & below She did have 1 episode of chest discomfort yesterday. This was associated with some dyspnea. She has occasional dyspnea currently. No breathing difficulty at this time. No change in her bowel or bladder habits. Lower extremity edema which appears to well controlled on diuretic regimen. Physical Exam Physical Exam: She is alert and oriented x3. Mood affect appear normal. She answered all questions appropriately. HEENT: Sclerae are anicteric. Pupils are equal and reactive to light and accommodation. Extraocular movements were intact. Neuro: Cranial nerves intact Neck: Examination of the submandibular region did not reveal any significant lymphadenopathy. Carotids are palpable bilaterally and free of bruits on auscultation. There was no evidence of jugular venous distention. The thyroid was not enlarged. Lungs: Lungs are clear to auscultation bilaterally. There are no rales wheezes or rhonchi. She has normal respiratory effort without use of accessory muscles. There is normal pulmonary excursion. Cardiac: The rhythm was regular. S1 and S2 were normal. There are no murmurs on examination. The PMI was not markedly displaced on palpation. Abdomen: The abdomen was soft and nontender. Extremities: Patient has bilateral radial pulses that are equal in intensity. There is no evidence cyanosis or clubbing. There was no evidence of significant peripheral edema bilaterally. Skin: There are no rashes noted on examination today. Results & Data ([facility]) Vital Signs (Past 12 Hours) Vital Signs Temp Pulse Resp BP Pulse Ox 07/05/20 15:30 51 L 22 07/05/20 15:02 54 L 23 07/05/20 14:30 50 L 23 07/05/20 14:00 49 L 20 159/85 H 07/05/20 13:54 53 L 19 180/78 H 07/05/20 13:35 49 L 18 07/05/20 13:09 36.8 C 126 H 17 143/103 H 96 Laboratory Results Abnormal Lab Results 07/05/20 07/05/20 07/05/20 13:46 13:46 13:46 WBC 7.36 RBC 3.65 L Hgb 12.3 Hct 36.2 L MCV 99.2 MCH 33.7 MCHC 34.0 RDW Std Deviation 47.3 H RDW Coeff of Imani 12.9 Plt Count 194 MPV 10.4 Immature Gran % (Auto) 0.1 Neut % (Auto) 86.2 Lymph % (Auto) 5.3 [place] % (Auto) 8.4 Eos % (Auto) 0.0 Baso % (Auto) 0.0 Neut # (Auto) 6.34 Lymph # (Auto) 0.[address] [place] # (Auto) 0.62 H Eos # (Auto) 0.00 Baso # (Auto) 0.00 Immature Gran # (Auto) 0.01 PT 10.8 INR 1.0 APTT 28.9 PTT Ratio 1.0 Sodium 129 L Potassium 4.4 Chloride 95 L Carbon Dioxide 31 Anion Gap 3.0 BUN 8 Creatinine 0.68 Est Cr Clr Drug Dosing Not Reportable Est GFR ( Amer) 104.2 Est GFR (Non-Af Amer) 89.9 BUN/Creatinine Ratio 11.3 Glucose 85 Calcium 9.0 Magnesium 2.2 Total Bilirubin 0.4 AST 18 ALT 28 Alkaline Phosphatase 119 H Troponin I < 0.015 Total Protein 7.3 Albumin 4.0 Globulin 3.3 Albumin/Globulin Ratio 1.2 TSH 1.220 Diagnostic Findings Chest x-ray obtained at the time of admission was essentially unremarkable. ECG Additional Comments: EKG demonstrated sinus bradycardia. Review of her telemetry also suggest sinus bradycardia. PG Care Time/CCT Total # of Minutes Spent Total Time Spent with Patient: Total time spent is greater than 50% in coordination of care (as documented) at patient's floor/unit and/or counseling patient: Coding Level of Care Code 89642 Initial Inpt Care Lvl 3 Diagnoses Tachycardia-bradycardia syndrome I49.5 Dizziness R42
--- NOTE | 2020-07-05 16:53 | History & Physical Report ---
Date of Service July 05, 2020 Assessment & Plan (1) Bradycardia: 69 y/o F with PMH significant for atrial fibrillation, CLL, and VALORIE; who presented to the emergency department following her med spa manager's office for continued recurrence of dizziness, and near syncopal events with tunnel vision. Bradycardia: - history concerning for tachy-luiz syndrome - EKG on admission demonstrating sinus bradycardia - Cardiology consulted: to have pacemaker placed tomorrow for definitive control of her HR - continuing metoprolol 25mg BID, and flecainide 100mg BID - admit to PCU with telemetry A. fibrillation: - no definitive documentation of atrial fibrillation per cardiology records - continuing metoprolol 25mg BID, and flecainide 100mg BID - holding Eliquis for pacemaker placement in AM CLL: - on chemotherapy since 11/2019 - Onc with [facility] and Dr. Lilly Mycobacterium avium complex: - was to get IVIG infusion tomorrow, delayed until next week - azithromycin 500mg three times per week DVT ppx: SCDs Diet: vegan gluten free diet; NPO AT midnight Code: Full code (2) Paroxysmal atrial fibrillation: (3) Mycobacterium avium complex: (4) CLL (chronic lymphocytic leukemia): (5) Cardiac murmur: (6) Tachycardia-bradycardia syndrome: History of Present Illness Primary Care Provider: Alberto Mcnamara MD Lashonda Rodriguez is a 69 y/o F with PMH significant for atrial fibrillation, CLL, and VALORIE; who presented to the emergency department following her med spa manager's office for continued recurrence of dizziness, and near syncopal events with tunnel vision. These syncopal events have been occurring sporadically over the last several months, and they have always been this progression of feeling lightheaded, dizziness, and then having a couple episodes where she almost fell down. On one occasion she did fall, but this was months ago. Recently was seen in the cardiology office where she had a decrease in her beta-colton and an increase in her flecainide. Allergies Allergy/AdvReac Type Severity Reaction Status Date / Time mold Allergy Severe SOB, Verified 05/18/20 07:51 itchy, watery eyes cat dander Allergy Mild itchy, Verified 05/18/20 07:51 watery eyes chlorthalidone Allergy Unknown Dizzy, Verified 05/18/20 07:51 light headed chocolate flavor Allergy Unknown Verified 05/18/20 07:51 egg Allergy Unknown Verified 05/18/20 07:51 gluten Allergy Verified 05/18/20 07:51 erythromycin base AdvReac Intermediate NAUSEA / Verified 05/18/20 07:51 VOMITING lactose AdvReac Unknown GI SYMPTOMS Verified 05/18/20 07:51 dabigatran etexilate AdvReac SKIN PEELS Verified 05/18/20 07:51 [From Pradaxa] rivaroxaban [From Xarelto] AdvReac SKIN Verified 05/18/20 07:51 PEELING Home Medications Home Medications Medication Instructions Recorded Confirmed Type Raw Green Superfoods Caps 2,000 mg PO DAILY 07/05/20 07/05/20 History Turmeric Cap 1,000 mcg PO DAILY 07/05/20 07/05/20 History albuterol sulfate [Ventolin HFA] 2 puff INHALATION Q6H PRN 07/05/20 07/05/20 History amikacin liposomal-neb.accessr 590 mg INHALATION DAILY 07/05/20 07/05/20 History [Arikayce] apixaban [Eliquis] 5 mg PO BID 07/05/20 07/05/20 History azithromycin 500 mg PO 3XWK 07/05/20 07/05/20 History calcium cit mal-vit D2-mag ox 3 tab PO DAILY 07/05/20 07/05/20 History [Calcimate Plus] cetirizine [Zyrtec] 10 mg PO DAILY 07/05/20 07/05/20 History ethambutol 800 mg PO 3XWK 07/05/20 07/05/20 History filgrastim [Neupogen] 300 mcg SUBCUT DIRECTED 07/05/20 07/05/20 History flecainide 100 mg PO Q12H 07/05/20 07/05/20 History furosemide 20 mg PO 3XWK 07/05/20 07/05/20 History immun glob G(IgG)-gly-IgA ov50 See Rx Instructions .ROUTE .COMPLEX 07/05/20 07/05/20 History [Gammagard Liquid] ipratropium-albuterol 3 ml INHALATION QID PRN 07/05/20 07/05/20 History lactobacillus combo no.6 0 cell PO WM 07/05/20 07/05/20 History [Probiotic Complex] metoprolol tartrate 25 mg PO BID 07/05/20 07/05/20 History wr-[id number]-yzgn-FA-Ca carb-vit K 1 tab PO DAILY 07/05/20 07/05/20 History [Women's Multivitamin] potassium chloride 10 meq PO 3XWK 07/05/20 07/05/20 History prochlorperazine maleate 10 mg PO TID PRN 07/05/20 07/05/20 History venetoclax [Venclexta] 400 mg PO DAILY 07/05/20 07/05/20 History vitamin B complex 1 cap PO DAILY 07/05/20 07/05/20 History Past Med/Surg History Medical History Anemia CHRONIC. IVIG INFUSIONS Q4 WEEKS INDICATED. Asthma H/O. NO PROBLEMS CURRENTLY. Atrial fibrillation with RVR Cardiac murmur Mild TR and MR noted on 2017 echo. CLL (chronic lymphocytic leukemia) Chronic lymphocytosis. Hypertension Migraine H/O Mycobacterium avium complex On anticoagulant therapy Osteoarthritis Paroxysmal atrial fibrillation Peptic ulcer disease H/O Pneumonia DECEMBER 2018. TREATED AT [place], [facility]. Surgical History H/O reduction mammoplasty History of appendectomy History of arthroscopy RIGHT KNEE History of bronchoscopy 02/2019 for evaluation of possible TB. Bronchial washings showed benign findings. History of cardiac cath NO STENTS. 2001. History of carpal tunnel release BILATERAL History of colonoscopy History of esophagogastroduodenoscopy (EGD) History of repair of rotator cuff RIGHT SHOULDER History of tonsillectomy Hx of vaginal hysterectomy S/P bilateral breast reduction Family History Mother Colon cancer Uterine cancer Sister Colon cancer Father Prostate cancer Denies family history of Ovarian cancer Breast cancer Social History Smoking Status: Never smoker Second Hand Exposure: No; Do You Dip or Chew Tobacco: No; Hx Alcohol Use: No Hx Substance Use: No Preferred Language: Tajik Communication Ability: Effective Visual Impairment: No Limitations Hearing Ability: Normal Desktop Support Specialist Required: No Beliefs That Will Affect Care: None marital status: Current Living Situation: Family current occupational status: retired Other Information That Helps Us Care for You: Yes Feels Safe at Home: Yes Childhood Exposure to Second-Hand Smoke: No Dental Care, Regularly: Yes Physical Activity Frequency: 5-6 Times per Week Seatbelt Use: always Sunscreen Use: Yes Assistive Devices: Glasses Review of Systems Review of Systems: All systems reviewed & are unremarkable except as noted in HPI & below Physical Exam Constitutional: WD/WN, vitals as above Eyes: PERRL, conjunctivae normal, anicteric sclerae Respiratory: + cough; no respiratory distress, no labored breathing and no retractions Auscultation: + diminished lung sounds; no crackles, no rhonchi and no wheezes Cardiovascular: Rate/Rhythm: + bradycardic Heart Sounds: + murmur (systolic murmur best heard over LLSB); no gallop and no cardiac rub Vessels: normal peripheral pulses Gastrointestinal (Abdomen): normal bowel sounds, soft, nontender, no hepatosplenomegaly Neurologic: PERRL, EOMI, accommodation nl, no face palsy, no dysarthria Psychiatric: Orientation: alert and oriented x 3 Results & Data Results & Data ([facility]) Vital Signs (Past 12 Hours) Vital Signs Temp Pulse Resp BP Pulse Ox 07/05/20 15:30 51 L 22 07/05/20 15:02 54 L 23 07/05/20 14:30 50 L 23 07/05/20 14:00 49 L 20 159/85 H 07/05/20 13:54 53 L 19 180/78 H 07/05/20 13:35 49 L 18 07/05/20 13:09 36.8 C 126 H 17 143/103 H 96 Laboratory Results 07/05/20 07/05/20 07/05/20 Range/Units 13:46 13:46 13:46 WBC 7.36 (4.8-10.8) K/uL RBC 3.65 L (4.2-5.4) M/uL Hgb 12.3 (12.0-16.0) g/dL Hct 36.2 L (37-47) % MCV 99.2 (80-100) fL MCH 33.7 (25-34) pg MCHC 34.0 (32-36) g/dL RDW Std Deviation 47.3 H (36.4-46.3) fL RDW Coeff of Imani 12.9 (11.5-14.5) % Plt Count 194 (130-400) K/uL MPV 10.4 (7.4-10.4) fL Immature Gran % (Auto) 0.1 % Neut % (Auto) 86.2 % Lymph % (Auto) 5.3 % [place] % (Auto) 8.4 % Eos % (Auto) 0.0 % Baso % (Auto) 0.0 % Neut # (Auto) 6.34 (1.4-6.5) K/uL Lymph # (Auto) 0.39 L (1.2-3.4) K/uL [place] # (Auto) 0.62 H (0.11-0.59) K/uL Eos # (Auto) 0.00 (0-0.5) K/uL Baso # (Auto) 0.00 (0-0.2) K/uL Immature Gran # (Auto) 0.01 (0.00-0.02) K/uL PT 10.8 (9.0-12.0) Seconds INR 1.0 (0.9-1.1) APTT 28.9 (21.0-31.0) Seconds PTT Ratio 1.0 Sodium 129 L (136-145) mmol/L Potassium 4.4 (3.5-5.1) mmol/L Chloride 95 L (98-107) mmol/L Carbon Dioxide 31 (21-32) mmol/L Anion Gap 3.0 (3-11) BUN 8 (7-18) mg/dl Creatinine 0.68 (0.6-1.2) mg/dl Est Cr Clr Drug Dosing Not Reportable Est GFR ( Amer) 104.2 Est GFR (Non-Af Amer) 89.9 BUN/Creatinine Ratio 11.3 (10-20) Glucose 85 (70-99) mg/dl Calcium 9.0 (8.5-10.1) mg/dl Magnesium 2.2 (1.8-2.4) mg/dl Total Bilirubin 0.4 (0.2-1) mg/dl AST 18 (15-37) U/L ALT 28 (12-78) U/L Alkaline Phosphatase 119 H (45-117) U/L Troponin I < 0.015 (0-0.045) ng/ml Total Protein 7.3 (6.4-8.2) gm/dl Albumin 4.0 (3.4-5.0) gm/dl Globulin 3.3 (2.5-4.0) gm/dl Albumin/Globulin Ratio 1.2 (0.9-2) TSH 1.220 (0.300-4.500) uIu/ml Supervising Physician Co-Signing Physician Notes I also saw the patient and confirmed garcia portions of the history and physical examination. I agree with the impression and plan as noted in the resident documentation. 69-year-old female with tachycardiabradycardia syndrome who has had persistent symptoms despite best efforts at medical management. Previously discussed with the patient was a pacemaker placement and despite recent changes to her metoprolol and flecainide her symptoms have continued. Earlier today she had a near syncopal episode and after she contacted her med spa manager she was instructed to come to the emergency department for admission and subsequent pacemaker placement. Cardiology has already seen the patient and arrangements are being made for pacemaker placement tomorrow. Resident Activity Tracking Resident Involvement: Resident Care Provided Care Provided: Adult Hospital Medicine
[2020-07-05] MEDS ORDERED: POLYETHYLENE (MIRALAX) 17 GM PACK PO PRN (18:38)
[2020-07-05] MEDS ORDERED: ALBUT/IPRATROP 3MG/0.5MG NEB 3 ML VIAL INH PRN (18:38)
[2020-07-05] MEDS ORDERED: PROCHLORPERAZINE MALEATE 10 MG TAB PO PRN (18:38)
[2020-07-05] MEDS ORDERED: ALBUTEROL HFA 8 GM INHALER INH PRN (18:38)
[2020-07-05] MEDS: SODIUM CHLORIDE 0.9% 1000ML 1,000 ML IV SCH (21:08)
[2020-07-05] MEDS: FLECAINIDE ACETATE 100 MG TABLET PO SCH (21:12)
[2020-07-05] MEDS: METOPROLOL TARTRATE 25 MG TAB PO SCH (21:12)
[2020-07-05] MEDS: ONDANSETRON INJ 2 MG/ML 2 ML VIAL IV PRN (23:19)
[2020-07-05] MEDS: ACETAMINOPHEN 325 MG TAB PO PRN (23:19)
[2020-07-06] MEDS: METOPROLOL TARTRATE 25 MG TAB PO SCH (00:06)
[2020-07-06 07:16] LABS: Basophils # (auto) 0.01 K/uL (0-0.2); Basophils % (auto) 0.3 %; Eosinophils # (auto) 0.01 K/uL (0-0.5); Eosinophils % (auto) 0.3 %; Hematocrit (blood only) 34.4 % (37-47); Hemoglobin 11.4 g/dL (12.0-16.0); Lymphocytes # (auto) 0.55 K/uL (1.2-3.4); Mean Corpuscular Hgb Conc 33.1 g/dL (32-36); Mean Corpuscular Volume 99.7 fL (80-100); Mean Platelet Volume 10.7 fL (7.4-10.4); Monocytes # (auto) 0.39 K/uL (0.11-0.59); Monocytes % (auto) 12.7 %; Neutrophils % (auto) 68.7 %; Platelet Count 181 K/uL (130-400); RDW Coefficient of Variation 12.9 % (11.5-14.5); RDW Standard Deviation 47.4 fL (36.4-46.3); Red Blood Count 3.45 M/uL (4.2-5.4); White Blood Count 3.06 K/uL (4.8-10.8)
--- NOTE | 2020-07-06 07:43 | Hospitalist Progress Note ---
Date of Service July 06, 2020 Assessment & Plan (1) Bradycardia: 69 y/o F with PMH significant for atrial fibrillation, CLL, and VALORIE; who presented to the emergency department following her management intern's office for continued recurrence of dizziness, and near syncopal events with tunnel vision; now s/p pacemaker implantation. Bradycardia: - history concerning for tachy-luiz syndrome - EKG on admission demonstrating sinus bradycardia - Cardiology consulted: pacemaker placed 07/06 - continuing metoprolol 25mg BID, and flecainide 100mg BID A. fibrillation: - no definitive documentation of atrial fibrillation or conversion pauses per cardiology records - continuing metoprolol 25mg BID, and flecainide 100mg BID - holding Eliquis for pacemaker placement CLL: - on chemotherapy since 11/2019 - Onc with [facility] and Dr. Lilly Mycobacterium avium complex: - was to get IVIG infusion today, delayed until next week - azithromycin 500mg three times per week DVT ppx: SCDs Diet: vegan gluten free diet; NPO AT midnight Code: Full code (2) Paroxysmal atrial fibrillation: (3) Mycobacterium avium complex: (4) CLL (chronic lymphocytic leukemia): (5) Cardiac murmur: (6) Tachycardia-bradycardia syndrome: Admission and Anticipated Discharge Date Admission Date: July 05, 2020 Supervising Physician Co-Signing Physician Notes I also saw the patient and confirmed garcia portions of the history and physical examination. I agree with the impression and plan as noted in the resident documentation. Upon my examination this morning, the patient is without complaints. In review of telemetry she did dip down into the mid 30s overnight. Later in the morning she did have some tachydysrhythmias. I discussed the case with the computer consultant. The patient is on the schedule for a pacemaker placement today. If all goes well, anticipate discharge tomorrow. Subjective Ms. Rodriguez reports feeling tired this morning. She has a headache and is experiencing dizziness and lightheadedness when standing. This is improved when sitting upright and laying down. She feels like she would feel better if she had something to eat or drink. She denies any chest pain, shortness of breath, and lower extremity swelling. She had a pacemaker implantation this afternoon and tolerated the procedure well with no immediate complications. Review of Systems Review of Systems: All systems reviewed & are unremarkable except as noted in HPI & below Physical Exam Constitutional: WD/WN, vitals as above Eyes: PERRL, conjunctivae normal, anicteric sclerae Respiratory: + cough; no respiratory distress, no labored breathing and no retractions Auscultation: + diminished lung sounds; no crackles, no rhonchi and no wheezes Cardiovascular: Rate/Rhythm: + bradycardic Heart Sounds: + murmur (systolic murmur best heard over LLSB); no gallop and no cardiac rub Vessels: normal peripheral pulses Gastrointestinal (Abdomen): normal bowel sounds, soft, nontender, no hepatosplenomegaly Neurologic: PERRL, EOMI, accommodation nl, no face palsy, no dysarthria Psychiatric: Orientation: alert and oriented x 3 Results & Data Results & Data ([facility]) Vital Signs (Past 12 Hours) Vital Signs Temp Pulse Pulse Resp BP BP Pulse Ox 07/06/20 03:06 36.3 C L 46 L 16 168/78 H 98 07/05/20 23:00 36.7 C 38 L 16 135/73 96 07/05/20 22:29 38 L 149/73 H 98 Laboratory Results 07/06/20 07/06/20 Range/Units 06:19 06:19 WBC 3.06 L (4.8-10.8) K/uL RBC 3.45 L (4.2-5.4) M/uL Hgb 11.4 L (12.0-16.0) g/dL Hct 34.4 L (37-47) % MCV 99.7 (80-100) fL MCH 33.0 (25-34) pg MCHC 33.1 (32-36) g/dL RDW Std Deviation 47.4 H (36.4-46.3) fL RDW Coeff of Imani 12.9 (11.5-14.5) % Plt Count 181 (130-400) K/uL MPV 10.7 H (7.4-10.4) fL Immature Gran % (Auto) 0.0 % Neut % (Auto) 68.7 % Lymph % (Auto) 18.0 % [place] % (Auto) 12.7 % Eos % (Auto) 0.3 % Baso % (Auto) 0.3 % Neut # (Auto) 2.10 (1.4-6.5) K/uL Lymph # (Auto) 0.55 L (1.2-3.4) K/uL [place] # (Auto) 0.39 (0.11-0.59) K/uL Eos # (Auto) 0.01 (0-0.5) K/uL Baso # (Auto) 0.01 (0-0.2) K/uL Immature Gran # (Auto) 0.00 (0.00-0.02) K/uL Sodium 131 L (136-145) mmol/L Potassium 4.2 (3.5-5.1) mmol/L Chloride 98 (98-107) mmol/L Carbon Dioxide 30 (21-32) mmol/L Anion Gap 3.0 (3-11) BUN 6 L (7-18) mg/dl Creatinine 0.58 L (0.6-1.2) mg/dl Est Cr Clr Drug Dosing 75.7 ml/min Est GFR ( Amer) 109.8 Est GFR (Non-Af Amer) 94.7 BUN/Creatinine Ratio 10.5 (10-20) Glucose 77 (70-99) mg/dl Calcium 9.0 (8.5-10.1) mg/dl Phosphorus 4.4 (2.5-4.9) mg/dl Magnesium 2.2 (1.8-2.4) mg/dl Medications Administered Current Inpatient Medications Acetaminophen (Acetaminophen 325 Mg Tab) 650 mg PO Q4H PRN PRN Reason: Pain or Fever Stop: 08/04/20 18:37 Last Admin: 07/06/20 10:25 Dose: 650 mg Documented by: Albuterol (Albuterol Hfa 8 Gm Inhaler) 2 puffs INH Q6H PRN PRN Reason: Shortness Of Breath Or Wheezing Stop: 08/04/20 18:37 Albuterol (Albut/Ipratrop 3mg/0.5mg Neb 3 Ml Vial) 3 ml INH QID PRN PRN Reason: Shortness Of Breath Or Wheezing Stop: 08/04/20 18:37 Cetirizine HCl (Cetirizine Hcl 10 Mg Tablet) 10 mg PO DAILY [facility] Stop: 08/05/20 08:59 Last Admin: 07/06/20 09:31 Dose: 10 mg Documented by: Ethambutol HCl (Ethambutol Hcl 400 Mg Tab) 800 mg PO MoWeFr@0900 [facility] Stop: 08/06/20 08:59 Flecainide Acetate (Flecainide Acetate 100 Mg Tablet) 100 mg PO Q12H [facility] Stop: 08/04/20 20:59 Last Admin: 07/06/20 09:31 Dose: 100 mg Documented by: Furosemide (Furosemide 20 Mg Tab) 20 mg PO MoWeFr@0900 [facility] Stop: 08/06/20 08:59 Cefazolin Sodium (Ancef 1000mg) 1,000 mg in 7.5 mls @ 2.5 mls/min IV Q8H [facility]; Protocol Stop: 07/07/20 13:59 Last Admin: 07/06/20 14:16 Dose: 2.5 mls/min Documented by: Metoprolol Tartrate (Metoprolol Tartrate 25 Mg Tab) 25 mg PO BID [facility] Stop: 08/04/20 20:59 Last Admin: 07/06/20 00:06 Dose: Not Given Documented by: Miscellaneous (Amikacin Liposomal-Neb.Accessr [Arikayce] 590 Mg: Order Awaiting Action) 1 ea N/A QS [facility] Stop: 08/05/20 07:59 Last Admin: 07/06/20 07:03 Dose: Not Given Documented by: Miscellaneous (Venetoclax [Venclexta] 400 Mg: Order Awaiting Action) 1 ea N/A QS [facility] Stop: 08/05/20 07:59 Last Admin: 07/06/20 07:03 Dose: Not Given Documented by: Ondansetron HCl (Ondansetron Inj 2 Mg/Ml 2 Ml Vial) 4 mg IV Q6H PRN PRN Reason: Nausea Stop: 08/04/20 18:37 Last Admin: 07/06/20 10:25 Dose: 4 mg Documented by: Oxycodone HCl (Oxycodone Hcl Ir 5 Mg Tab (Immediate Release)) 5 mg PO Q4 PRN PRN Reason: Pain Stop: 07/20/20 13:08 Polyethylene Glycol (Polyethylene (Miralax) 17 Gm Pack) 17 gm PO DAILY PRN PRN Reason: Constipation Stop: 08/04/20 18:37 Potassium Chloride (Potassium Chloride 10 Meq Tabcr) 10 meq PO MoWeFr@0900 [facility] Stop: 08/06/20 08:59 Prochlorperazine (Prochlorperazine Maleate 10 Mg Tab) 10 mg PO TID PRN PRN Reason: Nausea Stop: 08/04/20 18:37 Vitamin B Complex (Vitamin B Complex Tab) 1 tab PO DAILY [facility] Stop: 08/05/20 08:59 Last Admin: 07/06/20 09:31 Dose: 1 tab Documented by: Resident Activity Tracking Resident Involvement: Resident Care Provided Care Provided: Adult Hospital Medicine
[2020-07-06 07:45] LABS: BUN Creatinine Ratio 10.5 (10-20); Creatinine Clr Calc Pharmacy 75.7 ml/min; Est GFR (African American) 109.8; Est GFR (Non-African American) 94.7; Magnesium 2.2 mg/dl (1.8-2.4); Phosphorus 4.4 mg/dl (2.5-4.9); Potassium 4.2 mmol/L (3.5-5.1)
[2020-07-06] MEDS: SODIUM CHLORIDE 0.9% 1000ML 1,000 ML IV SCH (08:29)
[2020-07-06] MEDS: VITAMIN B COMPLEX TAB PO SCH (09:31)
[2020-07-06] MEDS: CETIRIZINE HCL 10 MG TABLET PO SCH (09:31)
[2020-07-06] MEDS: FLECAINIDE ACETATE 100 MG TABLET PO SCH ×2 (09:31→21:25)
[2020-07-06] MEDS: ACETAMINOPHEN 325 MG TAB PO PRN ×2 (10:25→15:35)
[2020-07-06] MEDS: ONDANSETRON INJ 2 MG/ML 2 ML VIAL IV PRN (10:25)
[2020-07-06] MEDS ORDERED: MIDAZOLAM HCL 5 MG/ML 1 ML VIAL ONE (11:31)
[2020-07-06] MEDS ORDERED: BUPIVACAINE 0.25% 30 ML VIAL ONE (11:32)
[2020-07-06] MEDS ORDERED: BACITRACIN INJ 50,000 UNIT VIAL ONE (11:32)
[2020-07-06] MEDS ORDERED: LIDOCAINE HCL 1% 20 ML VIAL ONE (11:32)
[2020-07-06] MEDS ORDERED: fentaNYL citrate 100 MCG/2 ML VIAL ONE (11:32)
--- NOTE | 2020-07-06 11:59 | Pre Anesthesia Assessment ---
Date of Service July 06, 2020 Pre Sedation Assessment Vital Signs Temp Pulse Pulse Pulse Resp BP BP 07/06/20 11:31 40 L 16 07/06/20 11:14 36.4 C L 46 L 19 07/06/20 09:30 92 H 07/06/20 09:08 44 L 07/06/20 08:02 36.6 C 42 L 18 07/06/20 03:06 36.3 C L 46 L 16 07/05/20 23:00 36.7 C 38 L 16 07/05/20 22:29 38 L 149/73 H 07/05/20 19:10 46 L 07/05/20 18:15 36.6 C 50 L 22 177/102 H 07/05/20 15:30 51 L 22 07/05/20 15:02 54 L 23 07/05/20 14:30 50 L 23 07/05/20 14:00 49 L 20 159/85 H 07/05/20 13:54 53 L 19 180/78 H 07/05/20 13:35 49 L 18 07/05/20 13:09 36.8 C 126 H 17 143/103 H BP Pulse Ox 07/06/20 11:31 144/63 H 97 07/06/20 11:14 156/65 H 97 07/06/20 09:30 147/93 H 07/06/20 09:08 07/06/20 08:02 153/74 H 94 07/06/20 03:06 168/78 H 98 07/05/20 23:00 135/73 96 07/05/20 22:29 98 07/05/20 19:10 07/05/20 18:15 98 07/05/20 15:30 07/05/20 15:02 07/05/20 14:30 07/05/20 14:00 07/05/20 13:54 07/05/20 13:35 07/05/20 13:09 96 Cardiovascular + bradycardic Respiratory + respiratory effort normal Pre-Sedation Airway Assessment Smoking Status: Never smoker Hx Sleep Apnea: No Hx Difficult Intubation: No Short, Thick Neck: No Thyromental Distance: > or= 3.5 Finger Breadths Oral Cavity: + WNL Mallampati Class: II ASA: ASA3 NPO Status Date of Last Intake of Fluids: 07/06/20 Time of Last Intake of Fluids: 08:00 Date of Last Intake of Solid Food: 07/05/20 Time of Last Intake of Solid Foods: 21:00 Procedure Planning Contraindications for Sedation: none Current Medications Reviewed: Yes Notes The planned sedation has been discussed with the patient. Informed Consent was obtained. I have identified the patient, determined the appropriateness of sedation and have assessed the patient immediately prior to the procedure. All medicine(s) and interventions are by my order.
--- NOTE | 2020-07-06 13:09 | Post Anesthesia Assessment ---
Date of Service July 06, 2020 Post Sedation Assessment Vital Signs Temp Pulse Pulse Pulse Resp BP BP 07/06/20 11:31 40 L 16 07/06/20 11:14 36.4 C L 46 L 19 07/06/20 09:30 92 H 07/06/20 09:08 44 L 07/06/20 08:02 36.6 C 42 L 18 07/06/20 03:06 36.3 C L 46 L 16 07/05/20 23:00 36.7 C 38 L 16 07/05/20 22:29 38 L 149/73 H 07/05/20 19:10 46 L 07/05/20 18:15 36.6 C 50 L 22 177/102 H 07/05/20 15:30 51 L 22 07/05/20 15:02 54 L 23 07/05/20 14:30 50 L 23 07/05/20 14:00 49 L 20 159/85 H 07/05/20 13:54 53 L 19 180/78 H 07/05/20 13:35 49 L 18 07/05/20 13:09 36.8 C 126 H 17 143/103 H BP Pulse Ox 07/06/20 11:31 144/63 H 97 07/06/20 11:14 156/65 H 97 07/06/20 09:30 147/93 H 07/06/20 09:08 07/06/20 08:02 153/74 H 94 07/06/20 03:06 168/78 H 98 07/05/20 23:00 135/73 96 07/05/20 22:29 98 07/05/20 19:10 07/05/20 18:15 98 07/05/20 15:30 07/05/20 15:02 07/05/20 14:30 07/05/20 14:00 07/05/20 13:54 07/05/20 13:35 07/05/20 13:09 96 Recovery Score Activity: Moves 4 extremities Respiration: Deep Breath/Cough Circulation: +/-20% PreAnes Value Consciousness: Fully Awake Oxygen Saturation: > 92% On Room Air Discharge Sedation Level of Care: Fast Track Phase II Post Sedation Plan On clinical assessment, the patient appears to have tolerated the sedation without complications. Patient is recovering as anticipated. Patient will continue to be monitored by nursing and may be discharged when sedation discharge criteria are met per below protocol. Upon Completions of procedure up to 15 minutes continue every 5 minute vital signs and the P.A.R. score; then discharge to a Phase I or Fast Track to Phase II per the following guidelines: * Discharge Patient to appropriate Phase II area if PAR is 8 or greater or return to pre- procedure baseline. The post - procedure orders will be as directed. * If PAR score is less than 8 or not return to pre-procedure baseline then patient will follow Phase I monitoring till PAR is reached for Phase II. The Phase I may be done in procedure room or may call to secure a Phase I area. * If naloxone or flumazenil are used for reversal, hold in Phase I for continued monitoring from when last reversal dose was given for a minimum of 60 minutes or longer pending the nurse and/or physician discretion of patient condition before discharge to Phase II. Please call the Sedation Physician to re-evaluate and complete post-note for discharge to Phase II area. Do NOT discharge from procedure sedation or Phase 1 until post- sedation evaluation note is complete by procedure /sedation MD Sedation Discharge Instructions to be given to the patient at discharge to home.
--- NOTE | 2020-07-06 13:13 | Electrophysiology Report ---
Date of Service July 06, 2020 Electrophysiology Procedure Electrophysiology Procedure Report Procedure performed: Implantation of dual-chamber permanent pacemaker Staff it consulting manager: Dhaval Miller MD Indication: The patient is a 69-year-old woman with a history of paroxysmal at rial fibrillation, high ventricular rates and slow periods of sinus rhythm. She requires a pacemaker for tachybradycardia syndrome. Device being implanted for symptomatic nonreversible AV node dysfunction. Dual-chamber device was selected as she is currently in sinus rhythm and wished to maintain AV synchrony. Procedure in detail: The patient was informed of the risks benefits and alternatives to the intended procedure and she wished to proceed. She was taken to the electrophysiology suite in a fasting state. A preoperative antibiotic had been administered. The patient was monitored electrocardiographically throughout today's procedure and conscious sedation was administered per protocol. The left upper pectoral area is prepped and draped in usual sterile fashion. This area was anesthetized using subcutaneous administration of a xylocaine solution. An incision was made at this site and carried down to the prepectoralis fascia using sharp dissection. Electrocautery was also employed for dissection as well as for hemostasis. A device pocket was fashioned tissues above the pectoralis muscle. Subsequent to this maneuver the left axillary vein was accessed using modified Seldinger technique. Sheaths were placed over guidewires at this site and used to facilitate passage of the pacing leads to the respective chambers under fluoroscopic guidance. This included right atrial and right ventricular leads. Adequate sensing and threshold parameters were obtained prior to Active fixation of the leads to the endocardial surface. The proximal portion leads were then sutured the prepectoral fascia using nonabsorbable suture. The device pocket was irrigated with antibiotic solution. The leads were then attached to the device. The device and leads were then placed in the pocket and pocket was closed in 3 layers of absorbable suture. Steri-Strips and sterile dressing were applied. The device was tested noninvasively prior to conclusion the procedure. The patient tolerated procedure well there no immediate complications. Equipment used: New pulse generator: Rn Physician Office [employer], [employer]. Model number: [id number] serial number [id number] Right atrial lead: Rn Physician Office [employer]at[employer]ai, Broker. Model number: [id number] serial number [id number] Right ventricular lead: Rn Physician Office [place]. Model number: 5076 serial number [id number] Measured data: Right atrial lead: P waves measured 1 mV. Pacing threshold 1.75 V at 0.4 ms with a pacing impedance of 418 ohms Right ventricular lead: R waves measure 3.8 mV. Pacing threshold 1.0 V at 0.4 ms with a paced impedance of 589 ohms Impression: Successful implantation of dual-chamber permanent pacemaker [facility] Electrophysiology codes Pacing Procedure 1: Pacin Insert/Replace Pacer A & V PG Moderate Sedation Codes Moderate Sedation Codes Procedure 1: Sedation/Anesthesia: 87128 Mod Sedation by the same physician;Init15 Min Child Age 5 & Up Procedure 2: Sedation/Anesthesia: 37426 Mod Sedation by the same physician; Ea [id number] Minutes
[2020-07-06] MEDS: ceFAZolin 1000MG 1,000 MG/7.5 ML SYR IV SCH ×2 (14:16→21:28)
[2020-07-06] MEDS: AZITHROMYCIN 250 MG TAB PO SCH (16:59)
--- NOTE | 2020-07-06 17:00 | Cardiology Progress Note ---
Date of Service July 06, 2020 Assessment & Plan (1) Tachycardia-bradycardia syndrome: She did have some atrial fibrillation earlier this morning. Her ventricular response was quite rapid. Currently she will need more aggressive rate control. Now that her pacemaker is in place I will increase her beta- blockade to its prior level. She may require additional titration over time. Will continue her flecainide currently. I will continue to hold her Eliquis for 1 more day. This will reduce her chance of developing hematoma at the implant site. (2) Dizziness: Unclear etiology. Possibly related to her arrhythmias. Will continue telemetry monitoring while she is in the hospital this may also provide some insight. (3) Chest pain: She does report some sense of chest discomfort at times. She describes this is very central in nature almost epigastric. The symptoms appear to correlate with development of atrial fibrillation by her report. They also tend to resolve when the arrhythmia resolves. She does not appear to have symptoms at other times. I think the likelihood that this represents ischemia is low. Perhaps with better control of her atrial fibrillation will see few her episodes. Admission and Anticipated Discharge Date Admission Date: July 05, 2020 Subjective This afternoon she was feeling well. Some mild discomfort at the device implant site. Review of Systems Review of Systems: Per HPI Physical Exam Physical Exam: She is alert and oriented x3. Mood affect appear normal. She answered all questions appropriately. HEENT: Sclerae are anicteric. Pupils are equal and reactive to light and accommodation. Extraocular movements were intact. Neuro: Cranial nerves intact Chest: Device implant site without significant hematoma. Bandage in place. Lungs: Lungs are clear to auscultation bilaterally. There are no rales wheezes or rhonchi. She has normal respiratory effort without use of accessory muscles. There is normal pulmonary excursion. Cardiac: The rhythm was regular. S1 and S2 were normal. There are no murmurs on examination. The PMI was not markedly displaced on palpation. Extremities: Patient has bilateral radial pulses that are equal in intensity. There is no evidence cyanosis or clubbing. There was no evidence of significant peripheral edema bilaterally. Skin: There are no rashes noted on examination today. Results & Data ([facility]) Vital Signs (Past 12 Hours) Vital Signs Temp Pulse Pulse Pulse Resp BP Pulse Ox 07/06/20 16:30 62 152/76 H 07/06/20 16:00 61 158/84 H 07/06/20 15:30 60 167/78 H 07/06/20 14:30 36.4 C L 60 20 102/60 98 07/06/20 14:18 36.5 C 60 20 122/52 L 97 07/06/20 13:54 36.5 C 60 18 139/76 95 07/06/20 13:49 60 07/06/20 13:39 36.5 C 61 18 162/89 H 96 07/06/20 13:24 36.4 C L 61 18 165/79 H 97 07/06/20 13:19 60 17 134/76 97 07/06/20 13:04 61 17 171/85 H 97 07/06/20 11:31 40 L 16 144/63 H 97 07/06/20 11:14 36.4 C L 46 L 19 156/65 H 97 07/06/20 09:30 92 H 147/93 H 07/06/20 09:08 44 L 07/06/20 08:02 36.6 C 42 L 18 153/74 H 94 Laboratory Results Abnormal Lab Results 07/06/20 07/06/20 06:19 06:19 WBC 3.06 L RBC 3.45 L Hgb 11.4 L Hct 34.4 L MCV 99.7 MCH 33.0 MCHC 33.1 RDW Std Deviation 47.4 H RDW Coeff of Imani 12.9 Plt Count 181 MPV 10.7 H Immature Gran % (Auto) 0.0 Neut % (Auto) 68.7 Lymph % (Auto) 18.0 [place] % (Auto) 12.7 Eos % (Auto) 0.3 Baso % (Auto) 0.3 Neut # (Auto) 2.10 Lymph # (Auto) 0.55 L [place] # (Auto) 0.39 Eos # (Auto) 0.01 Baso # (Auto) 0.01 Immature Gran # (Auto) 0.00 Sodium 131 L Potassium 4.2 Chloride 98 Carbon Dioxide 30 Anion Gap 3.0 BUN 6 L Creatinine 0.58 L Est Cr Clr Drug Dosing 75.7 Est GFR ( Amer) 109.8 Est GFR (Non-Af Amer) 94.7 BUN/Creatinine Ratio 10.5 Glucose 77 Calcium 9.0 Phosphorus 4.4 Magnesium 2.2
--- NOTE | 2020-07-06 17:44 | Electrocardiogram Report ---
Test Reason : Blood Pressure : / mmHG Vent. Rate : 039 BPM Atrial Rate : 039 BPM P-R Int : 258 ms QRS Dur : 096 ms QT Int : 460 ms P-R-T Axes : 045 -50 -17 degrees QTc Int : 370 ms Marked sinus bradycardia with sinus arrhythmia with 1st degree A-V block Left anterior fascicular block Nonspecific ST abnormality Abnormal ECG When compared with ECG of 05-JUL-2020 13:23, T wave inversion now evident in Inferior leads Confirmed by Dhaval Miller ([id number]) on 07/06/2020 5:43:35 PM Referred By: Luis Daniel Miller Confirmed By:Jeff Miller
[2020-07-06] MEDS: METOPROLOL TARTRATE 50 MG TAB PO SCH (21:25)
[2020-07-06] MEDS: oxyCODONE HCL IR 5 MG TAB (IMMEDIATE RELEASE) PO PRN (22:33)
[2020-07-07] MEDS: oxyCODONE HCL IR 5 MG TAB (IMMEDIATE RELEASE) PO PRN (03:27)
[2020-07-07] MEDS: ACETAMINOPHEN 325 MG TAB PO PRN (06:04)
[2020-07-07] MEDS: ceFAZolin 1000MG 1,000 MG/7.5 ML SYR IV SCH (06:05)
[2020-07-07 08:06] LABS: Hematocrit (blood only) 38.2 % (37-47); Hemoglobin 12.2 g/dL (12.0-16.0); Lymphocytes # (auto) 0.32 K/uL (1.2-3.4); Lymphocytes % (auto) 7.8 %; Mean Corpuscular Hemoglobin 31.6 pg (25-34); Mean Corpuscular Hgb Conc 31.9 g/dL (32-36); Mean Platelet Volume 10.5 fL (7.4-10.4); Monocytes % (auto) 9.8 %; Neutrophils # (auto) 3.38 K/uL (1.4-6.5); Neutrophils % (auto) 82.4 %; Platelet Count 174 K/uL (130-400); RDW Coefficient of Variation 12.7 % (11.5-14.5); Red Blood Count 3.86 M/uL (4.2-5.4)
--- NOTE | 2020-07-07 08:23 | XRay Report ---
TWO VIEW CHEST CLINICAL HISTORY: Cardiac pacemaker placement. FINDINGS: PA and lateral chest radiographs are compared to study dated 07/05/2020 and correlated with chest CT dated 03/09/2020. A 2-lead cardiac pacemaker has been placed and partially obscures the left upper chest. Leads project over the right atrial appendage and the right ventricle. The heart is enla rged noting atherosclerotic calcification of the thoracic aorta. The pulmonary vasculature is noncong ested. Chronic interstitial thickening is similar to previous. There are scattered calcified granulom as. No airspace consolidation or pleural effusion is identified. There is no pneumothorax. The skelet al structures are osteopenic. A mild compression deformity is noted in the lower thoracic spine. IMPRESSION: 1. A 2-lead cardiac pacemaker has been placed as above. No pneumothorax is identified post procedure. 2. Cardiomegaly without radiographic evidence of congestive failure. 3. No airspace consolidation or pleural effusion is identified. ACT 112: Negative or not required by law. Electronically signed by: Henri Barrera M.D. 07/07/2020 8:22 AM
[2020-07-07 08:24] LABS: BUN Creatinine Ratio 9.9 (10-20); Est GFR (African American) 106.8; Est GFR (Non-African American) 92.2
[2020-07-07] MEDS: METOPROLOL TARTRATE 50 MG TAB PO SCH (08:30)
[2020-07-07] MEDS: CETIRIZINE HCL 10 MG TABLET PO SCH (08:31)
[2020-07-07] MEDS: FLECAINIDE ACETATE 100 MG TABLET PO SCH (08:31)
[2020-07-07] MEDS: AZITHROMYCIN 250 MG TAB PO SCH (08:31)
[2020-07-07] MEDS: VITAMIN B COMPLEX TAB PO SCH (08:31)
[2020-07-07] MEDS ORDERED: POTASSIUM CHLORIDE 10 MEQ TABCR PO SCH (09:00)
[2020-07-07] MEDS ORDERED: FUROSEMIDE 20 MG TAB PO SCH (09:00)
[2020-07-07] MEDS ORDERED: ETHAMBUTOL HCL 400 MG TAB PO SCH (09:00)
--- NOTE | 2020-07-07 09:18 | Cardiology Progress Note ---
Date of Service July 07, 2020 Assessment & Plan (1) Tachycardia-bradycardia syndrome: Successful dual chamber pacemaker placement without complication. Refrain from lifting the left arm above the shoulder or behind neck for 6 weeks Keep wound dry and ster-strip intact until f/u in 1 week. Re-start Eliquis tomorrow morning Increase metoprolol to 50mg BID Continue flecainide at current dose. OK for discharge from my standpoint (2) Dizziness: Unclear etiology. Possibly related to her arrhythmias. (3) Chest pain: Admission and Anticipated Discharge Date Admission Date: July 05, 2020 Subjective Patient feeling well. Minimal pain at the device implant site. Physical Exam Physical Exam: Wound clean. No hematoma. No ecchymosis. No erythema Results & Data ([facility]) Vital Signs (Past 12 Hours) Vital Signs Temp Pulse Resp BP Pulse Ox 07/07/20 07:43 36.6 C 60 17 150/81 H 94 07/07/20 03:13 36.4 C L 61 19 152/84 H 94 07/06/20 23:26 36.7 C 59 L 18 165/87 H 93 07/06/20 21:22 60 156/82 H Diagnostic Findings CXR demonstrates good lead position. No PTX Interrogation reveals good lead function of both A and V PG Care Time/CCT Total # of Minutes Spent Total Time Spent with Patient: Total time spent is greater than 50% in coordination of care (as documented) at patient's floor/unit and/or counseling patient: Coding Level of Care Code None Diagnoses Tachycardia-bradycardia syndrome I49.5 Dizziness R42 Chest pain R07.9
--- NOTE | 2020-07-07 11:09 | Discharge Summary ---
Date of Service July 07, 2020 Admission HPI Per Admitting Provider Lashonda Rodriguez is a 69 y/o F with PMH significant for atrial fibrillation, CLL, and VALORIE; who presented to the emergency department following her egg breaker's office for continued recurrence of dizziness, and near syncopal events with tunnel vision. These syncopal events have been occurring sporadically over the last several months, and they have always been this progression of feeling lightheaded, dizziness, and then having a couple episodes where she almost fell down. On one occasion she did fall, but this was months ago. Recently was seen in the cardiology office where she had a decrease in her beta-colton and an increase in her flecainide. Principal Diagnosis Tachy-Francois Syndrome Discharge Exam Constitutional WD/WN, vitals as above Eyes + anicteric sclerae and EOM intact bilaterally Neck normal visual inspection Respiratory normal respiratory effort and + cough Auscultation: lungs clear to auscultation bilaterally Cardiovascular Rate/Rhythm: regular rate and regular rhythm Heart Sounds: no gallop, no murmur and no cardiac rub Vessels: normal peripheral pulses Gastrointestinal (Abdomen) normal bowel sounds, soft, nontender, no hepatosplenomegaly Musculoskeletal Extremities: extremities normal to inspection Skin no rashes, warm and dry Neurologic moves all extremities and awake Psychiatric A+Ox3, euthymic affect Affect: euthymic affect Discharge Data Allergies Allergy/AdvReac Type Severity Reaction Status Date / Time mold Allergy Severe SOB, Verified 05/18/20 07:51 itchy, watery eyes cat dander Allergy Mild itchy, Verified 05/18/20 07:51 watery eyes chlorthalidone Allergy Unknown Dizzy, Verified 05/18/20 07:51 light headed chocolate flavor Allergy Unknown Verified 05/18/20 07:51 egg Allergy Unknown Verified 05/18/20 07:51 gluten Allergy Verified 05/18/20 07:51 erythromycin base AdvReac Intermediate NAUSEA / Verified 05/18/20 07:51 VOMITING lactose AdvReac Unknown GI SYMPTOMS Verified 05/18/20 07:51 dabigatran etexilate AdvReac SKIN PEELS Verified 05/18/20 07:51 [From Pradaxa] rivaroxaban [From Xarelto] AdvReac SKIN Verified 05/18/20 07:51 PEELING Consultations 07/05/20 15:42 Consult Cardiology Stat 07/05/20 15:43 ED Decision to Admit Stat Procedures Performed Operation Date: 07/06/20 12:00 Actual Procedures p Pacer with A/V Leads (Dual) - Luis Daniel Miller MD Ordered Studies 07/06/20 12:01 CL Cath Imgs for PACS use only Stat Hospital Course (1) Bradycardia: 69 y/o F with PMH significant for atrial fibrillation, CLL, and VALORIE; who presented to the emergency department following her egg breaker's office for continued recurrence of dizziness, and near syncopal events with tunnel vision; now s/p pacemaker implantation. Bradycardia: - history concerning for tachy-francois syndrome - EKG on admission demonstrating sinus bradycardia - Cardiology consulted: pacemaker placed 07/06, procedure well tolerated - Per cardiology: holding Eliquis until 07/08 - follow-up with Cardiology next week A. fibrillation: - no definitive documentation of atrial fibrillation or conversion pauses per cardiology records - holding Eliquis for pacemaker placement until 07/08 - Increase metoprolol from 25mg BID to 50 mg BID - continue flecainide 100mg BID CLL: - on chemotherapy since 11/2019 - Onc with [facility] and Dr. Lilly Mycobacterium avium complex: - was to get IVIG infusion this week, delayed until next week - azithromycin 500mg MWF, Ethamutol MWF (2) Paroxysmal atrial fibrillation: (3) Mycobacterium avium complex: (4) CLL (chronic lymphocytic leukemia): (5) Cardiac murmur: (6) Tachycardia-bradycardia syndrome: Total Time Total Time Spent Total Time Spent (In Minutes): 30 Discharge Plan Discharge Items Patient Disposition: Home - Self-Care Reason For Visit: PALPITATIONS Discharge Diagnosis: Tachy-Francois Syndrome Condition on Discharge: Good Activity: Per Instructions section Non-emergency contact: Primary Care Provider and Category Consultant Call non-emergency contact if: you have any medication questions, your symptoms worsen and you have a fever Follow-up/Referrals: Washington Guardado PA-C [Physician Starch Treating Assistant] - 07/12/20 1:15 pm Diet: Gluten Free, Heart Healthy and Vegan (no animal product) Addtl Attending Provider Instructions: You were seen and admitted for pacemaker placement. Now that you are being discharged, it is important to keep your cardiology appointment with Dr. Miller in one week. Pending Studies at Discharge: No Stand-Alone Forms: My [facility], Smoking Cessation Medications and DC Order Prescriptions: New metoprolol tartrate 50 mg Tablet 50 mg PO BID 30 Days Qty: 60 RF: 0 Continued ipratropium-albuterol 0.5 mg-3 mg(2.5 mg base)/3 mL Solution For Nebulization 3 ml INHALATION QID PRN (Reason: Shortness Of Breath Or Wheezing) RF: 0 cetirizine [Zyrtec] 10 mg Tablet 10 mg PO DAILY RF: 0 potassium chloride 10 mEq tablet extended release 10 meq PO 3XWK RF: 0 prochlorperazine maleate 10 mg tablet 10 mg PO TID PRN (Reason: Nausea) RF: 0 ethambutol 400 mg tablet 800 mg PO 3XWK RF: 0 flecainide 50 mg tablet 100 mg PO Q12H RF: 0 furosemide 20 mg tablet 20 mg PO 3XWK RF: 0 albuterol sulfate [Ventolin HFA] 90 mcg/actuation Hfa Aerosol Inhaler 2 puff INHALATION Q6H PRN (Reason: Shortness Of Breath Or Wheezing) RF: 0 azithromycin 500 mg tablet 500 mg PO 3XWK RF: 0 Eliquis 5 mg tablet 5 mg PO BID RF: 0 Venclexta 100 mg tablet 400 mg PO DAILY RF: 0 Arikayce 590 mg/8.4 mL suspension for nebulization 590 mg INHALATION DAILY RF: 0 vitamin B complex Capsule 1 cap PO DAILY RF: 0 calcium cit mal-vit D2-mag ox 200-200-25 mg-unit-mg Tablet 3 tab PO DAILY RF: 0 lactobacillus combo no.6 4 billion cell Tablet 0 cell PO WM RF: 0 Women's Multivitamin 18 mg iron-400 mcg-500 mg Tablet 1 tab PO DAILY RF: 0 Raw Green Superfoods Caps 500 mg capsule 2,000 mg PO DAILY RF: 0 Turmeric Cap 1,000 mcg capsule 1,000 mcg PO DAILY RF: 0 Neupogen 300 mcg/0.5 mL Syringe 300 mcg SUBCUT DIRECTED RF: 0 Gammagard Liquid 10 % Solution See Rx Instructions .ROUTE .COMPLEX RF: 0 Discontinued metoprolol tartrate 25 mg tablet 25 mg PO BID RF: 0 Discharge Orders: Discharge Order (Routine); Ordered 07/07/20 Ordered By: Bruce Pappas Admission Data Admit Date/Time: 07/05/20 16:56 Attending Provider: Dora Galeas Admit Provider: Bruce Pappas Primary Care Provider: Alberto Mcnamara Other Providers: Luis Daniel Miller ; Tye Baird Other Interventions: Discharge Summary Assessment (RN) Last Done: 07/07/20 10:27 Supervising Physician Co-Signing Physician Notes Patient seen and examined with PGY-2 Dr. Pappas. Agree with history, exam findings, assessment and plan of care as outlined. In brief, Ms. Rodriguez is a 69 year old female with history of a-fib, CLL and mycobacterium avium complex admitted with near syncopal events. No overnight events. Nursing notes, labs and imaging reviewed. Heart with regular rate and rhythm. Lungs are clear to auscultation. No luis pheral edema. 1. Tachy-francois syndrome. Pacer placed on . Increased metoprolol to 50mg BID and continue flecainide 100mg BID. Pain control at the pacer site with Tylenol and ice packs. 2. Afib. Unable to find evidence of this in prior cardiology records. Continue meds as above. Holding Eliquis post pacer placement, but can restart on Friday. 3. CLL. Followed by [facility]c (Dr. Lilly). 4. Mycobacteirum avium complex. Ethambutol 800mg MWF, Azithro 500mg three times per week. IVIG infusion next week. 5. Chronic hyponatremia. Stable. I personally spent 25 minutes discharge planning for this patient. Resident Activity Tracking Resident Involvement: Resident Care Provided Care Provided: Adult Hospital Medicine
== END 2020-07-07 13:06 | disposition home or self-care (01) | DRG 243 ==
LOC: ED 13:02 → SUATTDRO 16:56 → 2S 16:56

== ENCOUNTER 2021-10-08 12:32 | Inpatient (IN) ==
[2021-10-08] MEDS ORDERED: ONDANSETRON INJ 2 MG/ML 2 ML VIAL IV STA (12:36)
[2021-10-08] MEDS ORDERED: SODIUM CHLORIDE 0.9% 500 ML IV STA (12:36)
--- NOTE | 2021-10-08 12:53 | Emergency Department Note ---
Impression & Plan Closed intertrochanteric fracture of left hip, Acute hyponatremia ED Provider Note NAME: ALEC MORENO AGE: 71 SEX: F : 1950 ARRIVES VIA: Ambulance INFORMANT: Patient, ED PROVIDER(S): Peyman Cleaning DO CHIEF COMPLAINT: Hip pain the patient is a 71-year-old female who presented to emergency department for an evaluation of hip pain. The patient was on a stool when she fell onto her left side. She had very severe left hip pain and was unable to stand. HPI: She presented to the emergency department via ALS. She does take apixaban 5 mg. The patient denies having any headache. She has no neck pain. She did not strike her head or her back. She denies having any lower extremity pain otherwise. The patient does have a brace on her left knee. She suffered an injury to her left knee 10 weeks ago and is requesting to see the same orthopedic physician. She denies having any nausea or vomiting. She was treat ed with fentanyl prior to arrival. She has had no events of hypotension prior to arrival. She denies having any lower GI bleeding symptoms. She is on no black or bloody bowel movements. ROS: See above HPI for pertinent positives & negatives. A total of 10 systems reviewed and were otherwise negative. PAST MEDICAL HISTORY: See Below PAST SURGICAL HISTORY: See Below FAMILY HISTORY: See Below SOCIAL HISTORY: See Below HOME MEDICATIONS: See Below ALLERGIES: See Below VITALS: See Below PHYSICAL EXAMINATION: GENERAL: The patient is awake and alert. She is very anxious appearing appears to be uncomfortable. EYES: The conjunctivae are clear. The pupils are round and reactive. EARS, NOSE, MOUTH AND THROAT: The nose is without any evidence of any deformity. NECK: The neck is nontender and supple. RESPIRATORY: Normal respiratory effort is noted there is no evidence of wheezing rhonchi or rales CARDIOVASCULAR: Regular rate and rhythm noted there no murmurs rubs or gallops normal S1 normal S2. GASTROINTESTINAL: The abdomen is soft. Abdomen is nontender. BACK: No midline tenderness or or step-off noted range of motion in flexion extension as well as rotation no signs of muscle spasm noted MUSCULOSKELETAL/EXTREMITIES: There is significant pain with any range of motion testing of the left hip. The patient is holding the left hip against the body. She resists any range of motion testing. Pulses are symmetric in both feet. SKIN: There is no obvious evidence of any rash. There are no petechiae, pallor or cyanosis noted. NEUROLOGIC: Patient is awake alert and oriented x3. MEDICAL DECISION MAKING: The patient is a 71-year-old female who presented to the emergency department for an evaluation after a fall. The patient had a fall onto her left side where she suffered a fracture of her left hip. The patient presented to the emergency department immediately. She had no other trauma noted on physical exam. I discussed the patient's laboratory and radiographic studies with her. The patient was treated with pain medication in the emergency department. I discussed her case with orthopedics as well as the [facility] hospitalist group. They will evaluate the patient in the emergency department for further management and disposition. Triage Nursing notes reviewed. Prior medical records reviewed Vital Signs: reviewed and remarkable for elevated blood pressure. Differential diagnosis: Fracture, dislocation, contusion, intra-abdominal, pneumothorax, intrathoracic, intracranial, neurologic, compartment syndrome, rhabdomyolysis, as well as other pathologies. ER treatment provided: See below Diagnostics interpreted by me: ECG: EKG was obtained in the emergency department. My interpretation is atrial paced rhythm at 67 bpm. No [place] beats were noted. Left bundle branch block pattern was appreciated. This was compared to a tracing from September 23, 2021. Cardiac Monitoring: An order was placed for continuous cardiac monitoring. The monitor shows a rate of 75 bpm with paced rhythm. Laboratory studies: As stated above and show below. Imaging studies: See below Consultation(s): I discussed this case with Dr. Zacarias who is on-call for orthopedics. They will evaluate the patient in the hospital for surgical management I discussed this case with Dr. Argueta who is on-call for the [facility] hospitalist group. Past Med/Surg History Medical History Anemia hx of---was receiving IV Iron infusions Asthma H/O. NO PROBLEMS CURRENTLY. Atrial fibrillation with RVR Cardiac murmur Mild TR and MR noted on 2017 echo. CLL (chronic lymphocytic leukemia) Chronic lymphocytosis. Hypertension VALORIE (mycobacterium avium-intracellulare) Migraine H/O Musculoskeletal chest pain Mycobacterium avium complex Non-productive cough On anticoagulant therapy eliquis daily Osteoarthritis Pacemaker medtronic dual chamber Paroxysmal atrial fibrillation Peptic ulcer disease H/O Pneumonia DECEMBER 2018. TREATED AT [place], [place], RECOVERED. SIADH (syndrome of inappropriate ADH production) Tachycardia-bradycardia syndrome hx of--reason for pacemaker placement Surgical History H/O reduction mammoplasty History of appendectomy History of arthroscopy RIGHT KNEE History of bronchoscopy 02/2019 for evaluation of possible TB. Bronchial washings showed benign findings. History of cardiac cath NO STENTS. 2001. History of carpal tunnel release BILATERAL History of colonoscopy History of esophagogastroduodenoscopy (EGD) History of permanent cardiac pacemaker placement (~07/07/20) meditronic dual chamber pacemaker placed @ [facility]--follows with Dr. Miller History of repair of rotator cuff RIGHT SHOULDER History of tonsillectomy Hx of vaginal hysterectomy S/P bilateral breast reduction Family History Mother Colon cancer Colorectal cancer Uterine cancer Sister Colon cancer Colorectal cancer Father Prostate cancer Son Family history of reaction to anesthesia fights when wakes Denies family history of Ovarian cancer Myocardial infarction Breast cancer Social History Smoking Status: Never smoker Second Hand Exposure: No; Hx Alcohol Use: Yes Alcohol type: wine Alcohol Intake Frequency: Monthly or Less Hx Substance Use: No Preferred Language: Upper Sorbian Communication Ability: Effective Visual Impairment: Limited Hearing Ability: Normal Executive Vice President Of Sales Required: No Beliefs That Will Affect Care: None marital status: Current Living Situation: Spouse current occupational status: retired How many Children do You have: 4 Feels Safe at Home: Yes Childhood Exposure to Second-Hand Smoke: No caffeine: Yes Dental Care, Regularly: Yes Physical Activity Frequency: 5-6 Times per Week Seatbelt Use: always Sunscreen Use: Yes Assistive Devices: Glasses Allergies Allergies Allergy/AdvReac Type Severity Reaction Status Date / Time mold Allergy Intermediate SOB, Verified 09/23/21 18:42 itchy, watery eyes cat dander Allergy Mild itchy, Verified 09/23/21 18:42 watery eyes chlorthalidone Allergy Mild Dizzy, Verified 09/23/21 18:42 light headed chocolate flavor Allergy Mild Gastrointestinal Verified 09/23/21 18:42 Upset egg Allergy Mild Gastrointestinal Verified 09/23/21 18:42 Upset gluten Allergy Mild Gastrointestinal Verified 09/23/21 18:42 Upset dabigatran etexilate AdvReac Intermediate SKIN PEELS Verified 09/23/21 18:42 [From Pradaxa] erythromycin base AdvReac Intermediate NAUSEA / Verified 09/23/21 18:42 VOMITING rivaroxaban [From Xarelto] AdvReac Intermediate SKIN Verified 09/23/21 18:42 PEELING lactose AdvReac Mild GI SYMPTOMS Verified 09/23/21 18:42 Home Meds Home Medications Medication Instructions Recorded Confirmed Raw Green Superfoods Caps 2,000 mg PO QDL 07/05/20 09/23/21 cetirizine 10 mg tablet (Zyrtec) 10 mg PO QPM 07/05/20 09/23/21 immune glob,gamma (IgG) 10 1 g IV UD 07/05/20 09/23/21 %-gly-IgA over 50 mcg/mL injection solution (Gammagard Liquid) ipratropium 0.5 mg-albuterol 3 mg 3 ml INHALATION QID PRN 07/05/20 09/23/21 (2.5 mg base)/3 mL nebulization soln sswdaaid-ule-ntxq-FA-Ca carb-vit K 1 tab PO QAM 07/05/20 09/23/21 18 mg iron-400 mcg-500 mg tablet (Women's Multivitamin) prochlorperazine maleate 10 mg 10 mg PO Q6H PRN 07/05/20 09/23/21 tablet vitamin B complex 1 cap PO QAM 07/05/20 09/23/21 Lactobacillus acidophilus 10 10,000 mmu cells PO QAM 09/12/20 09/23/21 billion cell capsule (Probiotic) calcium carb-magnesium oxide-vit 1 tab PO TIDM 09/12/20 09/23/21 D3 400 mg-167 mg-133 unit tablet (Calcium Magnesium + D) turmeric root extract 500 mg 1,000 mg PO QDL 09/12/20 09/23/21 capsule ascorbate calcium (vitamin C) 814 400 mg PO DAILY g 11/30/20 09/23/21 mg/gram oral powder (Vitamin C (ascorbate calcium)) metoprolol succinate 50 mg 75 mg PO QAM tab 06/06/21 09/23/21 tablet,extended release 24 hr sodium chloride 3 % for 4 ml INHALATION BID PRN 06/18/21 09/23/21 nebulization triamcinolone acetonide 0.1 % 1 applic TOPICAL QID 08/27/21 09/23/21 topical cream albuterol sulfate 90 mcg/actuation 2 inh INHALATION Q6H PRN 09/23/21 09/23/21 aerosol inhaler ethambutol 400 mg tablet 800 mg PO 3XWK 09/23/21 09/23/21 melatonin 3 mg capsule 3 mg PO HS 09/23/21 09/23/21 mometasone 2 inh INHALATION PM 09/23/21 09/23/21 zolpidem 5 mg tablet 10 mg PO ONCE PRN 09/23/21 09/23/21 Previous Rx's Medication Instructions Recorded flecainide 100 mg tablet 100 mg PO Q12H #180 tab 11/16/20 apixaban 5 mg tablet (Eliquis) 5 mg PO BID #60 tab 04/18/21 potassium chloride 10 mEq 10 meq PO 3XWK #60 tab 06/29/21 tablet,extended release sennosides 8.6 mg-docusate sodium 1 - 4 tab-cap PO DAILY #30 tab 07/06/21 50 mg tablet (Colace 2-In-1) cholecalciferol (vitamin D3) 50 50 mcg PO DAILY #60 cap 08/03/21 mcg (2,000 unit) capsule furosemide 20 mg tablet 20 mg PO DAILY #60 tab 08/29/21 colchicine 0.6 mg tablet See Rx Instructions .ROUTE 09/18/21 .COMPLEX #60 tab Results & Data (ED) Vital Signs Vital Signs - 24 hr 10/08/21 12:33 10/08/21 12:36 Temperature 36.7 C Temperature Source Oral Pulse Rate 75 Respiratory Rate 20 Respiratory Depth Normal Blood Pressure 170/72 H Blood Pressure Mean 104 Pulse Oximetry 96 Oxygen Delivery Method Room Air Room Air Sepsis Recent Fever Within 48 Hours No Sepsis New/Unexplained Change in Mental Status No Sepsis Action Taken by Nursing No Action Required Home Medications Current Medication List: was personally reviewed by me Laboratory Data Attestation: I reviewed the patient's lab results. Result diagrams: 10/08/21 Unknown 10/08/21 Unknown Lab Results 10/08/21 10/08/21 10/08/21 Range/Units Unknown Unknown Unknown WBC 6.55 (4.8-10.8) K/uL RBC 3.50 L (4.2-5.4) M/uL Hgb 11.2 L (12.0-16.0) g/dL Hct 33.7 L (37-47) % MCV 96.3 (80-100) fL MCH 32.0 (25-34) pg MCHC 33.2 (32-36) g/dL RDW Std Deviation 44.7 (36.4-46.3) fL RDW Coeff of Imani 12.8 (11.5-14.5) % Plt Count 209 (130-400) K/uL MPV 9.9 (7.4-10.4) fL Immature Gran % (Auto) 0.3 % Neut % (Auto) 86.8 % Lymph % (Auto) 6.1 % [place] % (Auto) 6.1 % Eos % (Auto) 0.5 % Baso % (Auto) 0.2 % Neut # (Auto) 5.69 (1.4-6.5) K/uL Lymph # (Auto) 0.40 L (1.2-3.4) K/uL [place] # (Auto) 0.40 (0.11-0.59) K/uL Eos # (Auto) 0.03 (0-0.5) K/uL Baso # (Auto) 0.01 (0-0.2) K/uL Immature Gran # (Auto) 0.02 (0.00-0.02) K/uL PT 10.5 (9.0-12.0) Seconds INR 1.0 (0.9-1.1) APTT 33.4 H (21.0-31.0) Seconds PTT Ratio 1.3 Sodium 129 L (136-145) mmol/L Potassium 3.9 (3.5-5.1) mmol/L Chloride 96 L (98-107) mmol/L Carbon Dioxide 28 (21-32) mmol/L Anion Gap 5.0 (3-11) BUN 8 (7-18) mg/dl Creatinine 0.70 (0.6-1.2) mg/dl Est Cr Clr Drug Dosing Not Reportable Est GFR ( Amer) 101.7 ml/min Est GFR (Non-Af Amer) 87.8 ml/min BUN/Creatinine Ratio 11.7 (10-20) Glucose 114 H (70-99) mg/dl Calcium 8.9 (8.5-10.1) mg/dl Total Bilirubin 0.4 (0.2-1) mg/dl AST 24 (15-37) U/L ALT 26 (12-78) Alkaline Phosphatase 71 (45-117) U/L Troponin I < 0.015 (0-0.045) ng/ml Total Protein 6.6 (6.4-8.2) gm/dl Albumin 3.5 (3.4-5.0) gm/dl Globulin 3.1 (2.5-4.0) gm/dl Albumin/Globulin Ratio 1.1 (0.9-2) Lipase 212 (73-393) U/L Specimen Hemolysis Administered Medications Morphine Sulfate (Morphine Sulfate 4 Mg/Ml 1 Ml Carp\Vial) 4 mg IV Q30M PRN PRN Reason: Pain Stop: 10/22/21 12:35 Last Admin: 10/08/21 14:16 Dose: 4 mg Documented by: [id number] Admin: 10/08/21 13:19 Dose: 4 mg Documented by: [id number] Discontinued Medications Sodium Chloride (Nss) 500 mls @ 999 mls/hr IV .Q31M STA Stop: 10/08/21 13:06 Last Admin: 10/08/21 13:18 Dose: 999 mls/hr Documented by: [id number] Ondansetron HCl (Ondansetron Inj 2 Mg/Ml 2 Ml Vial) 4 mg IV NOW STA Stop: 10/08/21 12:37 Last Admin: 10/08/21 13:18 Dose: 4 mg Documented by: [id number] Imaging Data Radiologist's Impression: Chest X-Ray 10/08/21 12:36 XR chest 1V portable CLINICAL HISTORY: Chest Pain. COMPARISON STUDY: 09/23/2021 TECHNIQUE: 1 view of the chest FINDINGS: Single frontal view of the chest demonstrates the heart to again be enlarged with a dual lead cardiac pacer in place. The lungs are clear of alveolar opacit ies. There is no evidence for pleural effusion. There is no evidence for vascular congestion. There is no acute osseous pathology. IMPRESSION: No acute cardiopulmonary disease. ACT 112: Negative or not required by law. Electronically signed by: Dandre Anderson M.D. 10/08/2021 1:25 PM Hip/Pelvis X-Ray 10/08/21 12:36 XR hip LT 2V w pelvis CLINICAL HISTORY: fall. Left hip pain COMPARISON STUDY: No previous studies for comparison. TECHNIQUE: AP pelvis and 2 left hip views FINDINGS: Bones: There is a nondisplaced, intertrochanteric fracture of the left femoral neck. No other fractures are identified. There is no evidence of dislocation. There is no lytic or blastic lesion. Joints: There is moderate narrowing hip joint spaces bilaterally. The bones are in anatomic alignment. Degenerative changes are also seen involving the lower lumbar spine. Soft tissues: There is no focal soft tissue abnormality. There is no radiopaque foreign body. IMPRESSION: Nondisplaced, intertrochanteric fracture of the left femoral neck. ACT 112: Negative or not required by law. Electronically signed by: Dandre Anderson M.D. 10/08/2021 1:27 PM Discharge Plan Visit Data Chief Complaint: Hip Pain ED Provider: Peyman Cleaning Discharge Problem: Closed intertrochanteric fracture of left hip, Acute hyponatremia Patient Disposition: Being Evaluated by Hospitalist Forms Stand Alone Forms: [facility] Prescriptions Prescriptions: No Action flecainide 100 mg tablet 100 mg PO Q12H Qty: 180 RF: 3 Eliquis 5 mg tablet 5 mg PO BID Qty: 60 RF: 11 potassium chloride 10 mEq tablet extended release 10 meq PO 3XWK Qty: 60 RF: 3 cholecalciferol (vitamin D3) 50 mcg (2,000 unit) capsule 50 mcg PO DAILY Qty: 60 RF: 0 colchicine 0.6 mg tablet See Rx Instructions .ROUTE .COMPLEX Qty: 60 RF: 2 metoprolol succinate 50 mg tablet extended release 24 hr 75 mg PO QAM RF: 0 furosemide 20 mg tablet 20 mg PO DAILY Qty: 60 RF: 6 triamcinolone acetonide 0.1 % cream 1 applic topical QID RF: 0 sennosides-docusate sodium [Colace 2-In-1] 8.6-50 mg tablet 1 - 4 tab-cap PO DAILY Qty: 30 RF: 5 ipratropium-albuterol 0.5 mg-3 mg(2.5 mg base)/3 mL Solution For Nebulization 3 ml INHALATION QID PRN (Reason: Shortness Of Breath Or Wheezing) RF: 0 cetirizine [Zyrtec] 10 mg Tablet 10 mg PO QPM RF: 0 prochlorperazine maleate 10 mg tablet 10 mg PO Q6H PRN (Reason: Nausea) RF: 0 vitamin B complex Capsule 1 cap PO QAM RF: 0 Women's Multivitamin 18 mg iron-400 mcg-500 mg Tablet 1 tab PO QAM RF: 0 Raw Green Superfoods Caps 500 mg capsule 2,000 mg PO QDL RF: 0 Gammagard Liquid 10 % Solution 1 g IV UD RF: 0 Calcium Magnesium + D 400-167-133 mg-mg-unit Tablet 1 tab PO TIDM RF: 0 turmeric root extract 500 mg Capsule 1,000 mg PO QDL RF: 0 Probiotic 10 billion cell Capsule 10,000 mmu cells PO QAM RF: 0 Vitamin C (ascorbate calcium) 814 mg/gram powder 400 mg PO DAILY RF: 0 sodium chloride 3 % solution for nebulization 4 ml inhalation BID PRN (Reason: Secretions) RF: 0 ethambutol 400 mg Tablet 800 mg PO 3XWK RF: 0 mometasone 220 mcg/ actuation (30) Aerosol Powdr Breath Activated 2 inh INHALATION PM RF: 0 melatonin 3 mg Capsule 3 mg PO HS RF: 0 zolpidem 5 mg tablet 10 mg PO ONCE PRN (Reason: insomnia) RF: 0 albuterol sulfate 90 mcg/actuation HFA aerosol inhaler 2 inh inhalation Q6H PRN (Reason: shortness of breath or wheezing) RF: 0 Referrals Referrals: Alberto Mcnamara MD [Primary Care Provider] -
[2021-10-08] MEDS: MoRPHine SULFATE 4 MG/ML 1 ML CARP\\VIAL IV PRN ×3 (13:19→18:41)
--- NOTE | 2021-10-08 13:27 | XRay Report ---
XR chest 1V portable CLINICAL HISTORY: Chest Pain. COMPARISON STUDY: 09/23/2021 TECHNIQUE: 1 view of the chest FINDINGS: Single frontal view of the chest demonstrates the heart to again be enlarged with a dual lead cardiac pacer in place. The lungs are clear of alveolar opacities. There is no evidence for pleural effusion . There is no evidence for vascular congestion. There is no acute osseous pathology. IMPRESSION: No acute cardiopulmonary disease. ACT 112: Negative or not required by law. Electronically signed by: Dandre Anderson M.D. 10/08/2021 1:25 PM
--- NOTE | 2021-10-08 13:29 | XRay Report ---
XR hip LT 2V w pelvis CLINICAL HISTORY: fall. Left hip pain COMPARISON STUDY: No previous studies for comparison. TECHNIQUE: AP pelvis and 2 left hip views FINDINGS: Bones: There is a nondisplaced, intertrochanteric fracture of the left femoral neck. No other fractur es are identified. There is no evidence of dislocation. There is no lytic or blastic lesion. Joints: There is moderate narrowing hip joint spaces bilaterally. The bones are in anatomic alignment . Degenerative changes are also seen involving the lower lumbar spine. Soft tissues: There is no focal soft tissue abnormality. There is no radiopaque foreign body. IMPRESSION: Nondisplaced, intertrochanteric fracture of the left femoral neck. ACT 112: Negative or not required by law. Electronically signed by: Dandre Anderson M.D. 10/08/2021 1:27 PM
[2021-10-08 13:47] LABS: Basophils # (auto) 0.01 K/uL (0-0.2); Basophils % (auto) 0.2 %; Eosinophils # (auto) 0.03 K/uL (0-0.5); Eosinophils % (auto) 0.5 %; Hematocrit (blood only) 33.7 % (37-47); Hemoglobin 11.2 g/dL (12.0-16.0); Immature Granulocytes # (auto) 0.02 K/uL (0.00-0.02); Immature Granulocytes % (auto) 0.3 %; Lymphocytes % (auto) 6.1 %; Mean Corpuscular Hgb Conc 33.2 g/dL (32-36); Mean Corpuscular Volume 96.3 fL (80-100); Mean Platelet Volume 9.9 fL (7.4-10.4); Monocytes % (auto) 6.1 %; Neutrophils # (auto) 5.69 K/uL (1.4-6.5); Neutrophils % (auto) 86.8 %; Platelet Count 209 K/uL (130-400); RDW Coefficient of Variation 12.8 % (11.5-14.5); RDW Standard Deviation 44.7 fL (36.4-46.3); White Blood Count 6.55 K/uL (4.8-10.8)
--- NOTE | 2021-10-08 13:55 | History & Physical Report ---
Date of Service October 08, 2021 Assessment & Plan (1) Closed intertrochanteric fracture of left hip: Plan: Admit to med-surg Orthopedic surgery consulted, recommending intramedullary nail fixation tomorrow AM. Patient is on Eliquis and last dose was at 9 AM this morning. Per [facility] guidelines, medicine recommends skipping two doses before procedure. Spoke to Dr. Holt who is recommending proceeding with procedure tomorrow AM as scheduled. Tylenol and morphine for pain NPO after midnight Present on Admission?: Yes (2) Paroxysmal atrial fibrillation: Plan: Holding Eliquis for surgery, will be restarted when hemostasis is achieved Continue flecainide and metoprolol as prescribed Present on Admission?: No (3) Hypertension: Plan: BP elevated at 170/72 in emergency department Continue metoprolol as prescribed Present on Admission?: Yes (4) Anemia: Plan: H/H is 11.2/33.7, consistent with patient's baseline, reports a history of iron infusions Present on Admission?: Yes (5) COVID-19: Plan: Patient was diagnosed on 09/23 and reports receiving antibody infusion treatment. Patient has made full recovery. 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 The patient was on a stool when she lost her balance and fell several feet onto her left hip. She reports moderate, throbbing pain in and around her left hip, but denies pain elsewhere. She does not report hitting her head or other extremities. She denies lightheadedness, dizziness, weakness, confusion, headache, chest pain, nausea, and diaphoresis prior to or after the fall. Patient is on 5mg of Eliquis daily for atrial fibrillation, last reported dose was this morning at 9 AM. X ray revealed a nondisplaced, intertrochanteric fracture of the left femoral neck. Allergies Allergy/AdvReac Type Severity Reaction Status Date / Time mold Allergy Intermediate SOB, Verified 10/08/21 14:45 itchy, watery eyes cat dander Allergy Mild itchy, Verified 10/08/21 14:45 watery eyes chlorthalidone Allergy Mild Dizzy, Verified 10/08/21 14:45 light headed chocolate flavor Allergy Mild Gastrointestinal Verified 10/08/21 14:45 Upset egg Allergy Mild Gastrointestinal Verified 10/08/21 14:45 Upset gluten Allergy Mild Gastrointestinal Verified 10/08/21 14:45 Upset dabigatran etexilate AdvReac Intermediate SKIN PEELS Verified 10/08/21 14:45 [From Pradaxa] erythromycin base AdvReac Intermediate NAUSEA / Verified 10/08/21 14:45 VOMITING rivaroxaban [From Xarelto] AdvReac Intermediate SKIN Verified 10/08/21 14:45 PEELING lactose AdvReac Mild GI SYMPTOMS Verified 10/08/21 14:45 Home Medications Medication Instructions Recorded Confirmed Type Raw [employer] Caps 2,000 mg PO QDL 07/05/20 10/08/21 History cetirizine 10 mg tablet (Zyrtec) 10 mg PO QPM 07/05/20 10/08/21 History immune glob,gamma (IgG) 10 25 g IV MONTHLY 07/05/20 10/08/21 History %-gly-IgA over 50 mcg/mL injection solution (Gammagard Liquid) ipratropium 0.5 mg-albuterol 3 mg 3 ml INHALATION QID PRN 07/05/20 10/08/21 History (2.5 mg base)/3 mL nebulization soln prochlorperazine maleate 10 mg 10 mg PO Q6H PRN 07/05/20 10/08/21 History tablet vitamin B complex 1 cap PO QAM 07/05/20 10/08/21 History Lactobacillus acidophilus 10 10,000 mmu cells PO QAM 09/12/20 10/08/21 History billion cell capsule (Probiotic) calcium carb-magnesium oxide-vit 1 tab PO TIDM 09/12/20 10/08/21 History D3 400 mg-167 mg-133 unit tablet (Calcium Magnesium + D) turmeric root extract 500 mg 1,000 mg PO QDL 09/12/20 10/08/21 History capsule flecainide 100 mg tablet 100 mg PO Q12H #180 tab 11/16/20 10/08/21 Rx ascorbate calcium (vitamin C) 814 400 mg PO DAILY g 11/30/20 10/08/21 History mg/gram oral powder (Vitamin C (ascorbate calcium)) apixaban 5 mg tablet (Eliquis) 5 mg PO BID #60 tab 04/18/21 10/08/21 Rx metoprolol succinate 50 mg 75 mg PO QAM tab 06/06/21 10/08/21 History tablet,extended release 24 hr potassium chloride 10 mEq 10 meq PO 3XWK #60 tab 06/29/21 10/08/21 Rx tablet,extended release cholecalciferol (vitamin D3) 50 50 mcg PO DAILY #60 cap 08/03/21 10/08/21 Rx mcg (2,000 unit) capsule albuterol sulfate 90 mcg/actuation 2 inh INHALATION Q6H PRN 09/23/21 10/08/21 History aerosol inhaler ethambutol 400 mg tablet 800 mg PO 3XWK 09/23/21 10/08/21 History zolpidem 5 mg tablet 10 mg PO HS PRN 09/23/21 10/08/21 History colchicine 0.6 mg tablet 0.6 mg PO BID PRN 10/08/21 10/08/21 History filgrastim 300 mcg/0.5 mL 300 mcg SUBCUT UD 10/08/21 10/08/21 History injection syringe (Neupogen) furosemide 20 mg tablet 20 mg PO 3XWK 10/08/21 10/08/21 History jqjvrzbp-pig-abzg-FA-Ca carb-vit K 1 tab PO DAILY 10/08/21 10/08/21 History 18 mg iron-400 mcg-500 mg tablet (One-A-Day Womens Formula) Past Med/Surg History Medical History Anemia hx of---was receiving IV Iron infusions Asthma H/O. NO PROBLEMS CURRENTLY. Atrial fibrillation with RVR Cardiac murmur Mild TR and MR noted on 2017 echo. CLL (chronic lymphocytic leukemia) Chronic lymphocytosis. Hypertension VALORIE (mycobacterium avium-intracellulare) Migraine H/O Musculoskeletal chest pain Mycobacterium avium complex Non-productive cough On anticoagulant therapy eliquis daily Osteoarthritis Pacemaker medtronic dual chamber Paroxysmal atrial fibrillation Peptic ulcer disease H/O Pneumonia DECEMBER 2018. TREATED AT [place], RECOVERED. SIADH (syndrome of inappropriate ADH production) Tachycardia-bradycardia syndrome hx of--reason for pacemaker placement Surgical History H/O reduction mammoplasty History of appendectomy History of arthroscopy RIGHT KNEE History of bronchoscopy 02/2019 for evaluation of possible TB. Bronchial washings showed benign findings. History of cardiac cath NO STENTS. 2001. History of carpal tunnel release BILATERAL History of colonoscopy History of esophagogastroduodenoscopy (EGD) History of permanent cardiac pacemaker placement (~07/07/20) meditronic dual chamber pacemaker placed @ [facility]--follows with Dr. Miller History of repair of rotator cuff RIGHT SHOULDER History of tonsillectomy Hx of vaginal hysterectomy S/P bilateral breast reduction Family History Mother Colon cancer Colorectal cancer Uterine cancer Sister Colon cancer Colorectal cancer Father Prostate cancer Son Family history of reaction to anesthesia fights when wakes Denies family history of Ovarian cancer Myocardial infarction Breast cancer Social History Smoking Status: Never smoker Second Hand Exposure: No; Hx Alcohol Use: Yes Alcohol type: wine Alcohol Intake Frequency: Monthly or Less Hx Substance Use: No Preferred Language: Faroese Communication Ability: Effective Visual Impairment: Limited Hearing Ability: Normal Java Web Architect Required: No Beliefs That Will Affect Care: None marital status: Current Living Situation: Spouse current occupational status: retired How many Children do You have: 4 Feels Safe at Home: Yes Childhood Exposure to Second-Hand Smoke: No caffeine: Yes Dental Care, Regularly: Yes Physical Activity Frequency: 5-6 Times per Week Seatbelt Use: always Sunscreen Use: Yes Assistive Devices: Glasses Review of Systems Review of Systems: All systems reviewed & are unremarkable except as noted in HPI & below Physical Exam Constitutional: WD/WN, vitals as above Eyes: PERRL, conjunctivae normal, anicteric sclerae ENMT: external ear and nose normal, oropharynx normal Neck: normal visual inspection Respiratory: normal respiratory effort, lungs clear to auscultation Auscultation: + wheezes Cardiovascular: Rate/Rhythm: regular rate and regular rhythm Vessels: no JVD Gastrointestinal (Abdomen): normal bowel sounds, soft, nontender, no hepatosplenomegaly Musculoskeletal: no cyanosis or clubbing, extremities motor strength 5/5 Head/Neck/Chest: head atraumatic Spine: thoracic spine normal to inspection and lumbar spine normal to inspection; no pain with cervical ROM and no cervical spinal tenderness Hip: + limited ROM of hip (left) and + joint line tenderness Skin: no rashes, warm and dry Neurologic: patellar DTR's 2+ bilat, sensation intact and PERRL, EOMI, accommodation nl, no face palsy, no dysarthria Psychiatric: A+Ox3, euthymic affect Results & Data Results & Data ([facility]) Vital Signs (Past 12 Hours) Vital Signs Temp Pulse Resp BP Pulse Ox 10/08/21 12:33 36.7 C 75 20 170/72 H 96 Laboratory Results Laboratory Results WBC 6.55 K/uL (4.8-10.8) 10/08/21 Unknown RBC 3.50 M/uL (4.2-5.4) L 10/08/21 Unknown Hgb 11.2 g/dL (12.0-16.0) L 10/08/21 Unknown Hct 33.7 % (37-47) L 10/08/21 Unknown MCV 96.3 fL (80-100) 10/08/21 Unknown MCH 32.0 pg (25-34) 10/08/21 Unknown MCHC 33.2 g/dL (32-36) 10/08/21 Unknown RDW Std Deviation 44.7 fL (36.4-46.3) 10/08/21 Unknown RDW Coeff of Imani 12.8 % (11.5-14.5) 10/08/21 Unknown Plt Count 209 K/uL (130-400) 10/08/21 Unknown MPV 9.9 fL (7.4-10.4) 10/08/21 Unknown Immature Gran % (Auto) 0.3 % 10/08/21 Unknown Neut % (Auto) 86.8 % 10/08/21 Unknown Lymph % (Auto) 6.1 % 10/08/21 Unknown Collin % (Auto) 6.1 % 10/08/21 Unknown Eos % (Auto) 0.5 % 10/08/21 Unknown Baso % (Auto) 0.2 % 10/08/21 Unknown Neut # (Auto) 5.69 K/uL (1.4-6.5) 10/08/21 Unknown Lymph # (Auto) 0.40 K/uL (1.2-3.4) L 10/08/21 Unknown Collin # (Auto) 0.40 K/uL (0.11-0.59) 10/08/21 Unknown Eos # (Auto) 0.03 K/uL (0-0.5) 10/08/21 Unknown Baso # (Auto) 0.01 K/uL (0-0.2) 10/08/21 Unknown Immature Gran # (Auto) 0.02 K/uL (0.00-0.02) 10/08/21 Unknown PT 10.5 Seconds (9.0-12.0) 10/08/21 Unknown INR 1.0 (0.9-1.1) 10/08/21 Unknown APTT 33.4 Seconds (21.0-31.0) H 10/08/21 Unknown PTT Ratio 1.3 10/08/21 Unknown Sodium 129 mmol/L (136-145) L 10/08/21 Unknown Potassium 3.9 mmol/L (3.5-5.1) 10/08/21 Unknown Chloride 96 mmol/L (98-107) L 10/08/21 Unknown Carbon Dioxide 28 mmol/L (21-32) 10/08/21 Unknown Anion Gap 5.0 (3-11) 10/08/21 Unknown BUN 8 mg/dl (7-18) 10/08/21 Unknown Creatinine 0.70 mg/dl (0.6-1.2) 10/08/21 Unknown Est Cr Clr Drug Dosing Not Reportable 10/08/21 Unknown Est GFR ( Amer) 101.7 ml/min 10/08/21 Unknown Est GFR (Non-Af Amer) 87.8 ml/min 10/08/21 Unknown BUN/Creatinine Ratio 11.7 (10-20) 10/08/21 Unknown Glucose 114 mg/dl (70-99) H 10/08/21 Unknown Calcium 8.9 mg/dl (8.5-10.1) 10/08/21 Unknown Total Bilirubin 0.4 mg/dl (0.2-1) 10/08/21 Unknown AST 24 U/L (15-37) 10/08/21 Unknown ALT 26 (12-78) 10/08/21 Unknown Alkaline Phosphatase 71 U/L (45-117) 10/08/21 Unknown Troponin I < 0.015 ng/ml (0-0.045) 10/08/21 Unknown Total Protein 6.6 gm/dl (6.4-8.2) 10/08/21 Unknown Albumin 3.5 gm/dl (3.4-5.0) 10/08/21 Unknown Globulin 3.1 gm/dl (2.5-4.0) 10/08/21 Unknown Albumin/Globulin Ratio 1.1 (0.9-2) 10/08/21 Unknown Lipase 212 U/L (73-393) 10/08/21 Unknown Specimen Hemolysis 10/08/21 Unknown SARS-CoV-2, RNA, NAAT NEGATIVE (NEGATIVE) 10/08/21 15:00 Impressions Chest X-Ray 10/08/21 12:36 XR chest 1V portable CLINICAL HISTORY: Chest Pain. COMPARISON STUDY: 09/23/2021 TECHNIQUE: 1 view of the chest FINDINGS: Single frontal view of the chest demonstrates the heart to again be enlarged with a dual lead cardiac pacer in place. The lungs are clear of alveolar opacities. There is no evidence for pleural effusion. There is no evidence for vascular congestion. There is no acute osseous pathology. IMPRESSION: No acute cardiopulmonary disease. ACT 112: Negative or not required by law. Electronically signed by: Dandre Anderson M.D. 10/08/2021 1:25 PM Hip/Pelvis X-Ray 10/08/21 12:36 XR hip LT 2V w pelvis CLINICAL HISTORY: fall. Left hip pain COMPARISON STUDY: No previous studies for comparison. TECHNIQUE: AP pelvis and 2 left hip views FINDINGS: Bones: There is a nondisplaced, intertrochanteric fracture of the left femoral neck. No other fractures are identified. There is no evidence of dislocation. There is no lytic or blastic lesion. Joints: There is moderate narrowing hip joint spaces bilaterally. The bones are in anatomic alignment. Degenerative changes are also seen involving the lower lumbar spine. Soft tissues: There is no focal soft tissue abnormality. There is no radiopaque foreign body. IMPRESSION: Nondisplaced, intertrochanteric fracture of the left femoral neck. ACT 112: Negative or not required by law. Electronically signed by: Dandre Anderson M.D. 10/08/2021 1:27 PM Diagnostic Findings Laboratory Results WBC 6.55 K/uL (4.8-10.8) 10/08/21 Unknown RBC 3.50 M/uL (4.2-5.4) L 10/08/21 Unknown Hgb 11.2 g/dL (12.0-16.0) L 10/08/21 Unknown Hct 33.7 % (37-47) L 10/08/21 Unknown MCV 96.3 fL (80-100) 10/08/21 Unknown MCH 32.0 pg (25-34) 10/08/21 Unknown MCHC 33.2 g/dL (32-36) 10/08/21 Unknown RDW Std Deviation 44.7 fL (36.4-46.3) 10/08/21 Unknown RDW Coeff of Imani 12.8 % (11.5-14.5) 10/08/21 Unknown Plt Count 209 K/uL (130-400) 10/08/21 Unknown MPV 9.9 fL (7.4-10.4) 10/08/21 Unknown Immature Gran % (Auto) 0.3 % 10/08/21 Unknown Neut % (Auto) 86.8 % 10/08/21 Unknown Lymph % (Auto) 6.1 % 10/08/21 Unknown Collin % (Auto) 6.1 % 10/08/21 Unknown Eos % (Auto) 0.5 % 10/08/21 Unknown Baso % (Auto) 0.2 % 10/08/21 Unknown Neut # (Auto) 5.69 K/uL (1.4-6.5) 10/08/21 Unknown Lymph # (Auto) 0.40 K/uL (1.2-3.4) L 10/08/21 Unknown Collin # (Auto) 0.40 K/uL (0.11-0.59) 10/08/21 Unknown Eos # (Auto) 0.03 K/uL (0-0.5) 10/08/21 Unknown Baso # (Auto) 0.01 K/uL (0-0.2) 10/08/21 Unknown Immature Gran # (Auto) 0.02 K/uL (0.00-0.02) 10/08/21 Unknown Impressions Chest X-Ray 10/08/21 12:36 XR chest 1V portable CLINICAL HISTORY: Chest Pain. COMPARISON STUDY: 09/23/2021 TECHNIQUE: 1 view of the chest FINDINGS: Single frontal view of the chest demonstrates the heart to again be enlarged with a dual lead cardiac pacer in place. The lungs are clear of alveolar opacities. There is no evidence for pleural effusion. There is no evidence for vascular congestion. There is no acute osseous pathology. IMPRESSION: No acute cardiopulmonary disease. ACT 112: Negative or not required by law. Electronically signed by: Dandre Anderson M.D. 10/08/2021 1:25 PM Hip/Pelvis X-Ray 10/08/21 12:36 XR hip LT 2V w pelvis CLINICAL HISTORY: fall. Left hip pain COMPARISON STUDY: No previous studies for comparison. TECHNIQUE: AP pelvis and 2 left hip views FINDINGS: Bones: There is a nondisplaced, intertrochanteric fracture of the left femoral neck. No other fractures are identified. There is no evidence of dislocation. There is no lytic or blastic lesion. Joints: There is moderate narrowing hip joint spaces bilaterally. The bones are in anatomic alignment. Degenerative changes are also seen involving the lower lumbar spine. Soft tissues: There is no focal soft tissue abnormality. There is no radiopaque foreign body. IMPRESSION: Nondisplaced, intertrochanteric fracture of the left femoral neck. ACT 112: Negative or not required by law. Electronically signed by: Dandre Anderson M.D. 10/08/2021 1:27 PM Code Status & VTE Plan Code Status Full Code VTE Prophylaxis Plan Reason for no VTE drug order: Contraindicated PG Care Time/CCT Total # of Minutes Spent Total Time Spent with Patient: Total time spent is greater than 50% in coordination of care (as documented) at patient's floor/unit and/or counseling patient: Coding Level of Care Code 91748 Initial Inpt Care Lvl 3 Diagnoses COVID-19 U07.1 Anemia D64.9 Hypertension I10 Hypertension type: essential hypertension Paroxysmal atrial fibrillation I48.0 CLL (chronic lymphocytic leukemia) C91.90 Closed intertrochanteric fracture of left hip S72.145A Encounter type: initial encounter Fracture alignment: nondisplaced 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
[2021-10-08 13:58] LABS: Partial Thromboplastin Ratio 1.3; Partial Thromboplastin Time 33.4 Seconds (21.0-31.0); Prothrombin Time 10.5 Seconds (9.0-12.0)
[2021-10-08 14:22] LABS: Alanine Aminotransferase 26 (12-78); Albumin Globulin Ratio 1.1 (0.9-2); Albumin Level 3.5 gm/dl (3.4-5.0); Alkaline Phosphatase 71 U/L (45-117); Aspartate Aminotransferase 24 U/L (15-37); BUN Creatinine Ratio 11.7 (10-20); Bilirubin,Total 0.4 mg/dl (0.2-1); Blood Urea Nitrogen 8 mg/dl (7-18); Calcium 8.9 mg/dl (8.5-10.1); Carbon Dioxide 28 mmol/L (21-32); Chloride 96 mmol/L (98-107); Est GFR (African American) 101.7 ml/min; Est GFR (Non-African American) 87.8 ml/min; Globulin 3.1 gm/dl (2.5-4.0); Glucose 114 mg/dl (70-99); Lipase 212 U/L (73-393); Potassium 3.9 mmol/L (3.5-5.1); Sodium 129 mmol/L (136-145); Total Protein 6.6 gm/dl (6.4-8.2); Troponin I < 0.015 ng/ml (0-0.045)
--- NOTE | 2021-10-08 14:36 | Orthopedic Consultation ---
Date of Service October 08, 2021 Assessment & Plan (1) Closed intertrochanteric fracture of left hip: We discussed the diagnosis and treatment options with her and her daughter at bedside. They would like to proceed with intramedullary nail fixation of the left hip. They understand the risk, benefits, and alternatives to procedure elected proceed. Questions were answered at bedside today and the decision was made for surgery. She will be admitted to the medical service. She is currlayne blanton on Eliquis and her last dose was 9:00 this morning. She will be n.p.o. past midnight tonight. She is already on the operating room schedule for tomorrow. History of Present Illness Reason for Consultation: Left intertrochanteric hip fracture Requesting Physician: Kai Gallego is a pleasant 71-year-old female who normally ambulates without assistance. She sustained a tibial plateau fracture about 10 weeks ago. She has been treated in our office with conservative treatment. She has been partial weightbearing with a cane until recently. She was trying to hang a picture on a [employer] earlier today when she slipped and fell. She fell onto her left hip. She began having hip pain and came to the emergency room where radiographs demonstrated a minimally displaced left intertrochanteric hip fracture. She was admitted to the medical service and orthopedics was consulted to evaluate and treat. Allergies Allergy/AdvReac Type Severity Reaction Status Date / Time mold Allergy Intermediate SOB, Verified 09/23/21 18:42 itchy, watery eyes cat dander Allergy Mild itchy, Verified 09/23/21 18:42 watery eyes chlorthalidone Allergy Mild Dizzy, Verified 09/23/21 18:42 light headed chocolate flavor Allergy Mild Gastrointestinal Verified 09/23/21 18:42 Upset egg Allergy Mild Gastrointestinal Verified 09/23/21 18:42 Upset gluten Allergy Mild Gastrointestinal Verified 09/23/21 18:42 Upset dabigatran etexilate AdvReac Intermediate SKIN PEELS Verified 09/23/21 18:42 [From Pradaxa] erythromycin base AdvReac Intermediate NAUSEA / Verified 09/23/21 18:42 VOMITING rivaroxaban [From Xarelto] AdvReac Intermediate SKIN Verified 09/23/21 18:42 PEELING lactose AdvReac Mild GI SYMPTOMS Verified 09/23/21 18:42 Home Medications Medication Instructions Recorded Confirmed Type Raw Green Superfoods Caps 2,000 mg PO QDL 07/05/20 09/23/21 History cetirizine 10 mg tablet (Zyrtec) 10 mg PO QPM 07/05/20 09/23/21 History immune glob,gamma (IgG) 10 1 g IV UD 07/05/20 09/23/21 History %-gly-IgA over 50 mcg/mL injection solution (Gammagard Liquid) ipratropium 0.5 mg-albuterol 3 mg 3 ml INHALATION QID PRN 07/05/20 09/23/21 History (2.5 mg base)/3 mL nebulization soln xsivqvhv-ohi-pbaf-FA-Ca carb-vit K 1 tab PO QAM 07/05/20 09/23/21 History 18 mg iron-400 mcg-500 mg tablet (Women's Multivitamin) prochlorperazine maleate 10 mg 10 mg PO Q6H PRN 07/05/20 09/23/21 History tablet vitamin B complex 1 cap PO QAM 07/05/20 09/23/21 History Lactobacillus acidophilus 10 10,000 mmu cells PO QAM 09/12/20 09/23/21 History billion cell capsule (Probiotic) calcium carb-magnesium oxide-vit 1 tab PO TIDM 09/12/20 09/23/21 History D3 400 mg-167 mg-133 unit tablet (Calcium Magnesium + D) turmeric root extract 500 mg 1,000 mg PO QDL 09/12/20 09/23/21 History capsule flecainide 100 mg tablet 100 mg PO Q12H #180 tab 11/16/20 09/23/21 Rx ascorbate calcium (vitamin C) 814 400 mg PO DAILY g 11/30/20 09/23/21 History mg/gram oral powder (Vitamin C (ascorbate calcium)) apixaban 5 mg tablet (Eliquis) 5 mg PO BID #60 tab 04/18/21 09/23/21 Rx metoprolol succinate 50 mg 75 mg PO QAM tab 06/06/21 09/23/21 History tablet,extended release 24 hr sodium chloride 3 % for 4 ml INHALATION BID PRN 06/18/21 09/23/21 History nebulization potassium chloride 10 mEq 10 meq PO 3XWK #60 tab 06/29/21 09/23/21 Rx tablet,extended release sennosides 8.6 mg-docusate sodium 1 - 4 tab-cap PO DAILY #30 tab 07/06/21 09/23/21 Rx 50 mg tablet (Colace 2-In-1) cholecalciferol (vitamin D3) 50 50 mcg PO DAILY #60 cap 08/03/21 09/23/21 Rx mcg (2,000 unit) capsule triamcinolone acetonide 0.1 % 1 applic TOPICAL QID 08/27/21 09/23/21 History topical cream furosemide 20 mg tablet 20 mg PO DAILY #60 tab 08/29/21 09/23/21 Rx colchicine 0.6 mg tablet See Rx Instructions .ROUTE 09/18/21 09/23/21 Rx .COMPLEX #60 tab albuterol sulfate 90 mcg/actuation 2 inh INHALATION Q6H PRN 09/23/21 09/23/21 History aerosol inhaler ethambutol 400 mg tablet 800 mg PO 3XWK 09/23/21 09/23/21 History melatonin 3 mg capsule 3 mg PO HS 09/23/21 09/23/21 History mometasone 2 inh INHALATION PM 09/23/21 09/23/21 History zolpidem 5 mg tablet 10 mg PO ONCE PRN 09/23/21 09/23/21 History Past Med/Surg History Medical History Anemia hx of---was receiving IV Iron infusions Asthma H/O. NO PROBLEMS CURRENTLY. Atrial fibrillation with RVR Cardiac murmur Mild TR and MR noted on 2017 echo. CLL (chronic lymphocytic leukemia) Chronic lymphocytosis. Hypertension VALORIE (mycobacterium avium-intracellulare) Migraine H/O Musculoskeletal chest pain Mycobacterium avium complex Non-productive cough On anticoagulant therapy eliquis daily Osteoarthritis Pacemaker medtronic dual chamber Paroxysmal atrial fibrillation Peptic ulcer disease H/O Pneumonia DECEMBER 2018. [place]RE[place], RECOVERED. SIADH (syndrome of inappropriate ADH production) Tachycardia-bradycardia syndrome hx of--reason for pacemaker placement Surgical History H/O reduction mammoplasty History of appendectomy History of arthroscopy RIGHT KNEE History of bronchoscopy 02/2019 for evaluation of possible TB. Bronchial washings showed benign findings. History of cardiac cath NO STENTS. 2001. History of carpal tunnel release BILATERAL History of colonoscopy History of esophagogastroduodenoscopy (EGD) History of permanent cardiac pacemaker placement (~07/07/20) meditronic dual chamber pacemaker placed @ [facility]--follows with Dr. Miller History of repair of rotator cuff RIGHT SHOULDER History of tonsillectomy Hx of vaginal hysterectomy S/P bilateral breast reduction Family History Mother Colon cancer Colorectal cancer Uterine cancer Sister Colon cancer Colorectal cancer Father Prostate cancer Son Family history of reaction to anesthesia fights when wakes Denies family history of Ovarian cancer Myocardial infarction Breast cancer Social History Smoking Status: Never smoker Second Hand Exposure: No; Hx Alcohol Use: Yes Alcohol type: wine Alcohol Intake Frequency: Monthly or Less Hx Substance Use: No Preferred Language: Dominican Communication Ability: Effective Visual Impairment: Limited Hearing Ability: Normal Hematology Nurse Educator Required: No Beliefs That Will Affect Care: None marital status: Current Living Situation: Spouse current occupational status: retired How many Children do You have: 4 Feels Safe at Home: Yes Childhood Exposure to Second-Hand Smoke: No caffeine: Yes Dental Care, Regularly: Yes Physical Activity Frequency: 5-6 Times per Week Seatbelt Use: always Sunscreen Use: Yes Assistive Devices: Glasses Review of Systems All systems reviewed & are unremarkable except as noted in HPI & below. Physical Exam On physical examination of the left hip, left leg is shortened and externally rotated. She has pain with logroll of the left hip. She has a double hinged knee brace in place for her tibial plateau fracture. There are no abrasions, lesions, or lacerations of the skin. Constitutional WD/WN, vitals as above Eyes PERRL, conjunctivae normal, anicteric sclerae ENMT external ear and nose normal, oropharynx normal Neck trachea midline, no thyromegaly Respiratory normal respiratory effort Cardiovascular RRR, no murmur, no edema Gastrointestinal (Abdomen) normal bowel sounds, soft, nontender, no hepatosplenomegaly Psychiatric A+Ox3, euthymic affect Results & Data Results & Data Laboratory Results . Diagnostic Findings X-rays of the left hip show a minimally displaced left intertrochanteric hip fracture PG Care Time/CCT Total # of Minutes Spent Total Time Spent with Patient: Total time spent is greater than 50% in coordination of care (as documented) at patient's floor/unit and/or counseling patient: Coding Level of Care Code 03186 Inpt Consult Level 4 (57 - DECISION FOR SURGERY) Diagnoses Closed intertrochanteric fracture of left hip S72.145A Encounter type: initial encounter Fracture alignment: nondisplaced (1) Closed intertrochanteric fracture of left hip Encounter type: initial encounter Fracture alignment: nondisplaced Qualified Code(s): S72.145A - Nondisplaced intertrochanteric fracture of left femur, initial encounter for closed fracture
[2021-10-08] MEDS ORDERED: MoRPHine SULFATE 2 MG/ML CARP IV PRN (15:28)
--- NOTE | 2021-10-08 15:35 | Electrocardiogram Report ---
Test Reason : Blood Pressure : / mmHG Vent. Rate : 067 BPM Atrial Rate : 312 BPM P-R Int : 312 ms QRS Dur : 102 ms QT Int : 386 ms P-R-T Axes : 000 -39 044 degrees QTc Int : 407 ms Atrial-paced rhythm with prolonged AV conduction Left axis deviation Abnormal ECG When compared with ECG of 23-SEP-2021 16:45, Nonspecific T wave abnormality no longer present Confirmed by Slick Smith ([id number]) on 10/08/2021 3:35:45 PM Referred By: REFERRED SELF Confirmed By:Slick Smith
[2021-10-08] MEDS ORDERED: NALOXONE HCL 0.4 MG/1 ML VIAL/CARP IV PRN (17:27)
[2021-10-08] MEDS ORDERED: ALUMINUM/MAGNESIUM SUSP 30 ML UDC PO PRN (17:27)
[2021-10-08] MEDS ORDERED: ACETAMINOPHEN 325 MG TAB PO PRN (17:27)
[2021-10-08] MEDS ORDERED: ONDANSETRON INJ 2 MG/ML 2 ML VIAL IV PRN (17:27)
[2021-10-08] MEDS ORDERED: MAGNESIUM HYDROXIDE SUSP 30 ML UDC PO PRN (17:27)
[2021-10-08] MEDS ORDERED: bisacodyL 10 MG SUPP PR PRN (17:27)
[2021-10-08] MEDS: TRIAMCINOLONE ACET 0.1% CR 15 GM TUBE TOP SCH ×2 (18:11→21:34)
[2021-10-08] MEDS: LACTATED RINGER'S 1,000 ML IV SCH (18:41)
--- NOTE | 2021-10-08 19:48 | Anesthesiology Consultation ---
Date of Service October 08, 2021 Assessment & Plan (1) Encounter for pre-operative examination: Will likely require GA given recent eliquis usage. Chart Review Chart Review: Acceptable Risk for Surgery and Patient NOT seen in Pre Admission Testing H & P 10/08/21: Patient has medical clearance for surgery she denies any symptoms of unstable angina heart failure or significant pulmonary disease. I had a personal discussion with the surgeon regarding her anticoagulation therapy and she will have missed 2 doses by tomorrow morning of her Eliquis and can proceed to surgery as long she does not have spinal anesthesia or significantly high risk of bleeding surgery. Consults Requested none History Surgery Operation Date: 10/09/21 11:20 Proposed Procedures p Left Long Troch Nail - Nils Merritt MD Height/Weight Weight: 66 kg Allergies Allergy/AdvReac Type Severity Reaction Status Date / Time mold Allergy Intermediate SOB, Verified 10/08/21 14:45 itchy, watery eyes cat dander Allergy Mild itchy, Verified 10/08/21 14:45 watery eyes chlorthalidone Allergy Mild Dizzy, Verified 10/08/21 14:45 light headed chocolate flavor Allergy Mild Gastrointestinal Verified 10/08/21 14:45 Upset egg Allergy Mild Gastrointestinal Verified 10/08/21 14:45 Upset gluten Allergy Mild Gastrointestinal Verified 10/08/21 14:45 Upset dabigatran etexilate AdvReac Intermediate SKIN PEELS Verified 10/08/21 14:45 [From Pradaxa] erythromycin base AdvReac Intermediate NAUSEA / Verified 10/08/21 14:45 VOMITING rivaroxaban [From Xarelto] AdvReac Intermediate SKIN Verified 10/08/21 14:45 PEELING lactose AdvReac Mild GI SYMPTOMS Verified 10/08/21 14:45 Medications Home Medications Medication Instructions Recorded Confirmed Last Taken Raw Green Superfoods Caps 2,000 mg PO QDL 07/05/20 10/08/21 06/19/21 cetirizine 10 mg tablet (Zyrtec) 10 mg PO QPM 07/05/20 10/08/21 10/07/21 immune glob,gamma (IgG) 10 25 g IV MONTHLY 07/05/20 10/08/21 06/07/21 %-gly-IgA over 50 mcg/mL injection solution (Gammagard Liquid) ipratropium 0.5 mg-albuterol 3 mg 3 ml INHALATION QID PRN 07/05/20 10/08/21 Unknown (2.5 mg base)/3 mL nebulization soln prochlorperazine maleate 10 mg 10 mg PO Q6H PRN 07/05/20 10/08/21 Unknown tablet vitamin B complex 1 cap PO QAM 07/05/20 10/08/21 06/19/21 Lactobacillus acidophilus 10 10,000 mmu cells PO QAM 09/12/20 10/08/21 10/08/21 billion cell capsule (Probiotic) calcium carb-magnesium oxide-vit 1 tab PO TIDM 09/12/20 10/08/21 10/08/21 D3 400 mg-167 mg-133 unit tablet (Calcium Magnesium + D) turmeric root extract 500 mg 1,000 mg PO QDL 09/12/20 10/08/21 10/08/21 capsule flecainide 100 mg tablet 100 mg PO Q12H #180 tab 11/16/20 10/08/21 10/08/21 ascorbate calcium (vitamin C) 814 400 mg PO DAILY g 11/30/20 10/08/21 10/08/21 mg/gram oral powder (Vitamin C (ascorbate calcium)) apixaban 5 mg tablet (Eliquis) 5 mg PO BID #60 tab 04/18/21 10/08/21 10/08/21 metoprolol succinate 50 mg 75 mg PO QAM tab 06/06/21 10/08/21 10/08/21 tablet,extended release 24 hr potassium chloride 10 mEq 10 meq PO 3XWK #60 tab 06/29/21 10/08/21 10/08/21 tablet,extended release cholecalciferol (vitamin D3) 50 50 mcg PO DAILY #60 cap 08/03/21 10/08/21 10/08/21 mcg (2,000 unit) capsule albuterol sulfate 90 mcg/actuation 2 inh INHALATION Q6H PRN 09/23/21 10/08/21 Unknown aerosol inhaler ethambutol 400 mg tablet 800 mg PO 3XWK 09/23/21 10/08/21 10/08/21 zolpidem 5 mg tablet 10 mg PO HS PRN 09/23/21 10/08/21 Unknown colchicine 0.6 mg tablet 0.6 mg PO BID PRN 10/08/21 10/08/21 Unknown filgrastim 300 mcg/0.5 mL 300 mcg SUBCUT UD 10/08/21 10/08/21 Unknown injection syringe (Neupogen) furosemide 20 mg tablet 20 mg PO 3XWK 10/08/21 10/08/21 10/08/21 olkzzgrd-lwh-vjpi-FA-Ca carb-vit K 1 tab PO DAILY 10/08/21 10/08/21 Unknown 18 mg iron-400 mcg-500 mg tablet (One-A-Day Womens Formula) Active Medications Generic Name Dose Route Start Last Admin Trade Name Freq PRN Reason Stop Dose Admin Lactated Ringer's 1,000 mls @ 80 mls/hr 10/08/21 17:27 10/08/21 18:41 Lr IV 11/07/21 17:26 80 mls/hr .[id number] ARNIE Administration Morphine Sulfate 2 mg 10/08/21 15:28 10/08/21 15:53 Morphine Sulfate 2 Mg/Ml Carp IV 10/22/21 15:27 2 mg Q4 PRN Administration Pain 4-8/10 Morphine Sulfate 4 mg 10/08/21 17:27 10/08/21 18:41 Morphine Sulfate 4 Mg/Ml 1 Ml Carp\Vial IV 10/22/21 17:26 4 mg Q4 PRN Administration Pain 6-10/10 Triamcinolone Acetonide 1 appln 10/08/21 17:27 10/08/21 18:11 Triamcinolone Acet 0.1% Cr 15 Gm Tube TOP 11/07/21 17:26 Not Given QID ARNIE Past Medical History Medical History Anemia hx of---was receiving IV Iron infusions Asthma H/O. NO PROBLEMS CURRENTLY. Atrial fibrillation with RVR Cardiac murmur Mild TR and MR noted on 2017 echo. CLL (chronic lymphocytic leukemia) Chronic lymphocytosis. Hypertension VALORIE (mycobacterium avium-intracellulare) Migraine H/O Musculoskeletal chest pain Mycobacterium avium complex Non-productive cough On anticoagulant therapy eliquis daily Osteoarthritis Pacemaker medtronic dual chamber Paroxysmal atrial fibrillation Peptic ulcer disease H/O Pneumonia DECEMBER 2018. [place]RE[place] AT [place], RECOVERED. SIADH (syndrome of inappropriate ADH production) Tachycardia-bradycardia syndrome hx of--reason for pacemaker placement Chronic hyponatremia. COVID POSITIVE 09/20/21. COVID NEG 10/08/21. Past Family History Family History Mother Colon cancer Colorectal cancer Uterine cancer Sister Colon cancer Colorectal cancer Father Prostate cancer Son Family history of reaction to anesthesia fights when wakes Denies family history of Ovarian cancer Myocardial infarction Breast cancer Past Surgical History Surgical History H/O reduction mammoplasty History of appendectomy History of arthroscopy RIGHT KNEE History of bronchoscopy 02/2019 for evaluation of possible TB. Bronchial washings showed benign findings. History of cardiac cath NO STENTS. 2001. History of carpal tunnel release BILATERAL History of colonoscopy History of esophagogastroduodenoscopy (EGD) History of permanent cardiac pacemaker placement (~07/07/20) meditronic dual chamber pacemaker placed @ [facility]--follows with Dr. Miller History of repair of rotator cuff RIGHT SHOULDER History of tonsillectomy Hx of vaginal hysterectomy S/P bilateral breast reduction Pacer: checked Aug 2021. AAIR-DDDR Social History Smoking Status: Never smoker Hx Alcohol Use: Yes Alcohol type: wine alcohol intake frequency: holidays/special occasions only Hx Substance Use: No substance use type: does not use Physical Exam Vital Signs Last Vital Signs Temp 36.7 C 10/08/21 17:27 Pulse 82 10/08/21 17:27 Resp 20 10/08/21 17:27 BP 159/78 H 10/08/21 17:27 Pulse Ox 96 10/08/21 17:27 Testing Laboratory Results 10/08/21 Unknown 10/08/21 Unknown PT 10.5 Seconds (9.0-12.0) 10/08/21 Unknown INR 1.0 (0.9-1.1) 10/08/21 Unknown APTT 33.4 Seconds (21.0-31.0) H 10/08/21 Unknown Blood Type A Positive 10/08/21 17:43 Antibody Screen NEGATIVE 10/08/21 17:43 Electrocardiogram Date: 10/08/21 DICTATED BY:Slick Smith MD Test Reason : Blood Pressure : / mmHG Vent. Rate : 067 BPM Atrial Rate : 312 BPM P-R Int : 312 ms QRS Dur : 102 ms QT Int : 386 ms P-R-T Axes : 000 -39 044 degrees QTc Int : 407 ms Atrial-paced rhythm with prolonged AV conduction Left axis deviation Abnormal ECG When compared with ECG of 23-SEP-2021 16:45, Nonspecific T wave abnormality no longer present
[2021-10-08] MEDS: CETIRIZINE HCL 10 MG TABLET PO SCH (21:30)
[2021-10-08] MEDS: DOCUSATE SODIUM/SENNA 50/8.6MG TAB PO SCH (21:31)
[2021-10-08] MEDS: FLECAINIDE ACETATE 100 MG TABLET PO SCH (21:32)
[2021-10-08] MEDS: FLUTICASONE FUROATE 100MCG 14 PUFFS/INHALER INH SCH (21:33)
[2021-10-09] MEDS: MoRPHine SULFATE 4 MG/ML 1 ML CARP\\VIAL IV PRN ×5 (00:35→19:29)
[2021-10-09] MEDS ORDERED: MoRPHine SULFATE 4 MG/ML 1 ML CARP\\VIAL IV STA (01:19)
[2021-10-09 05:45] LABS: Hematocrit (blood only) 34.2 % (37-47); Hemoglobin 11.5 g/dL (12.0-16.0); Mean Corpuscular Hemoglobin 32.8 pg (25-34); Mean Corpuscular Hgb Conc 33.6 g/dL (32-36); Mean Corpuscular Volume 97.4 fL (80-100); Mean Platelet Volume 9.7 fL (7.4-10.4); Platelet Count 186 K/uL (130-400); RDW Coefficient of Variation 12.9 % (11.5-14.5); RDW Standard Deviation 45.8 fL (36.4-46.3); Red Blood Count 3.51 M/uL (4.2-5.4); White Blood Count 5.33 K/uL (4.8-10.8)
[2021-10-09] MEDS ORDERED: ceFAZolin 2000MG 2,000 MG/15 ML SYR IV SCH (06:00)
[2021-10-09] MEDS ORDERED: TRANEXAMIC ACID / 0.7% NACL 1,000 MG/100 ML BAG IV SCH ×2 (06:00→06:30)
[2021-10-09 06:40] LABS: BUN Creatinine Ratio 16.2 (10-20); Calcium 8.8 mg/dl (8.5-10.1); Creatinine Clr Calc Pharmacy 70.1 ml/min; Est GFR (African American) 104.3 ml/min; Potassium 4.3 mmol/L (3.5-5.1)
[2021-10-09] MEDS ORDERED: FUROSEMIDE 20 MG TAB PO SCH (09:00)
--- NOTE | 2021-10-09 09:09 | Orthopedic Progress Note ---
Date of Service October 09, 2021 Assessment & Plan (1) Closed intertrochanteric fracture of left hip: NPO. We are planning on IM nailing of the left hip/femur today with Dr. Merritt. Subjective .Pain reasonably controlled. No new complaints. Review of Systems All systems reviewed & are unremarkable except as noted in HPI & below. Physical Exam .Alert and oriented. NAD. Left leg: shortened and externally rotated. Brace on knee. Able to DF/PF. NVI Results & Data Results & Data Laboratory Results . Diagnostic Findings . PG Care Time/CCT Total # of Minutes Spent Total Time Spent with Patient: Total time spent is greater than 50% in coordination of care (as documented) at patient's floor/unit and/or counseling patient: Coding Level of Care Code 68182 Post Operative Follow-Up Diagnoses Closed intertrochanteric fracture of left hip S72.145A Encounter type: initial encounter Fracture alignment: nondisplaced (1) Closed intertrochanteric fracture of left hip Encounter type: initial encounter Fracture alignment: nondisplaced Qualified Code(s): S72.145A - Nondisplaced intertrochanteric fracture of left femur, initial encounter for closed fracture
[2021-10-09] MEDS: FLECAINIDE ACETATE 100 MG TABLET PO SCH ×2 (09:35→20:52)
[2021-10-09] MEDS: METOPROLOL SUCC 25MG EXT REL TAB PO SCH (09:36)
[2021-10-09] MEDS: TRIAMCINOLONE ACET 0.1% CR 15 GM TUBE TOP SCH ×4 (09:36→20:52)
[2021-10-09] MEDS ORDERED: ePHEDrine sulfate 50 MG/ML AMP IV PRN (10:37)
[2021-10-09] MEDS ORDERED: ATROPINE SULFATE 0.1 MG/ML 10ML SYR IV PRN (10:37)
[2021-10-09] MEDS ORDERED: MEPERIDINE HCL 25 MG/ML CARP/VIAL IV PRN (10:37)
[2021-10-09] MEDS ORDERED: LABETALOL HCL IV 5 MG/ML 20ML IV PRN (10:37)
[2021-10-09] MEDS ORDERED: ONDANSETRON INJ 2 MG/ML 2 ML VIAL IV PRN (10:37)
[2021-10-09] MEDS ORDERED: HYDROmorphone INJ 1 MG/ML SYRINGE IV PRN (10:37)
[2021-10-09] MEDS ORDERED: PHENYLEPHRINE 100MCG/ML 5ML SYR IV PRN (10:37)
[2021-10-09] MEDS ORDERED: LIDOCAINE 2% 2 ML VIAL/AMP(20MG/ML) INFIL ONE (10:50)
[2021-10-09] MEDS ORDERED: ONDANSETRON INJ 2 MG/ML 2 ML VIAL ONE (10:50)
[2021-10-09] MEDS ORDERED: PROPOFOL IV EMULSION 10 MG/ML 20 ML VIAL IV ONE (10:50)
[2021-10-09] MEDS ORDERED: fentaNYL citrate 100 MCG/2 ML VIAL ONE ×2 (10:50→13:07)
[2021-10-09] MEDS ORDERED: BUPIVACAINE 0.5 % 5 MG/1 ML MPF 30ML VIAL ONE (11:07)
[2021-10-09] MEDS ORDERED: EPINEPHrine INJ 1 MG/ML AMP ONE (11:07)
--- NOTE | 2021-10-09 11:45 | History & Physical Bridge Note ---
Date of Service October 09, 2021 History & Physical Bridge Note I have examined the patient, reviewed the History & Physical and in the interval since the performance of the History & Physical I have noted the following changes of clinical significance: no changes noted
[2021-10-09] MEDS ORDERED: KETAMINE 50 MG/5 ML SYRINGE ONE (12:06)
[2021-10-09] MEDS ORDERED: GLYCOPYRROLATE 0.2 MG/ML VIAL ONE ×2 (13:18)
[2021-10-09] MEDS ORDERED: ePHEDrine sulfate 50 MG/ML SYR ONE (13:18)
[2021-10-09] MEDS ORDERED: NEOSTIGMINE METHYLSULFATE 1 MG/ML 10ML VIAL ONE (13:18)
--- NOTE | 2021-10-09 13:33 | Operative Report ---
Post Operative Report Pre & Post Diagnosis Operation Date: 10/09/21 11:20 Pre-Op Diagnosis: Left intertrochanteric hip fracture Post-Op Diagnosis: Left intertrochanteric hip fracture I identified the patient and participated in the time-out.: Yes Procedure Operation Date: 10/09/21 11:20 Actual Procedures p Left Long Troch Nail(Left) - Nils Merritt MD Surgeon Nils Merritt MD [employer] P[employer] Pickering Estimated Blood Loss 100 Findings Consistent with Post-Op Diagnosis Specimens None Anesthesia Type General Complications none Disposition Accompanied Patient To Recovery: No Indications Patient is a 71-year-old female with known osteoporosis who sustained a fall yesterday. Yet she has acute onset of pain and was unable to ambulate. X-rays revealed a intertrochanteric hip fracture. The patient was admitted to the [facility] service, medically optimized, and indicated for surgical treatment. Description of Procedure Operative implants consist of: 1. Synthes left 320 mm x 10 mm long trochanteric nail. 2. 90 mm helical blade. 3. 36 mm x 5 mm distal interlocking screw. The patient was taken to the operating, identified, and placed on the operating room table in the supine position. General anesthetic was employed by anesthesia team. She was transferred to the fracture table. The left leg was placed in boot traction and the right leg was placed in a well leg al. I applied some longitudinal traction to the femur and internally rotated the foot to the kneecap pointing to the ceiling. Some x-rays were obtained and the fracture was a anatomically reduced. It was in slight valgus which was felt to be optimal. IV antibiotics were also provided. The left hip and leg were then scrubbed with Hibiclens, prepped with ChloraPrep and draped in usual sterile fashion. A curvilinear incision was made just proximal to the tip of the trochanter. Sharp dissection Through subcutaneous tissue down to the gluteal fascia and gluteal fascia was incised longitudinally. The guidewire was noted placed just lateral to the tip of the trochanter and in line with the IM canal. This was advanced down the IM canal and then overreamed with a 17 mm reamer. A ball- tipped guidewire was then placed down the IM canal. The nail length was measured and we selected a 340 mm nail initially. I then began reaming. I bream with a 9 and we started even getting chatter at a 9. Reamed up to an 11- 09/[address] a 10 mm nail. Unfortunately we only had 320 mm nail so we selected that which was slightly shorter than what I initially anticipated. This is certainly felt to be acceptable and better than placing a nail too long. A 320 mm left trochanteric nail was then placed over the guidewire. Was tapped in position. The lateral aiming arm was advanced to the lateral aspect of thigh and a stab incision was made to the lateral aiming arm was advanced to the lateral femoral cortex. A guidewire was placed in the central aspect of the femoral head neck in both AP and lateral planes. This was measured in the 90 mm helical blade was selected. The cortical strep probe was used to breach the cortex and then the triple reamer set at 90 mm was used. A 90 mm helical blade was placed. The proximal setscrew was tightened. We did compress the fracture site slightly at that point as it was in valgus. The proximal aiming arm was removed and some final x-rays were obtained. Attention drawn towards distal interlocking. Using a perfect [place] technique the distal interlocking screw was placed in the dynamic hole to allow some dynamization. A stab incision was made. The drill was used to drill the hole and a 5 mm x 36 mm interlocking screw was placed. Some final x-rays were obtained. Tangential and throat closing. All wounds were irrigated with copious of normal saline. The gluteal fascia was then closed with #1 Vicryl suture in a running fashion. The subcutaneous tissue was then closed with 2 layers with the deep layer #1 Vicryl suture and subcutaneous tissues with 2-0 Dexon suture in a buried interrupted fashion. Skin was closed with skin omkar. Leg was then cleaned and dried a sterile dressing with Xeroform, 4 fours, ABD pad, foam tape was applied. The patient then brought off the fracture table and transported to the transport bed. She was brought out of general anesthesia and transferred to the recovery room in stable condition. The patient tolerated procedure well and there were no complications. Shannon Pickering, my physician staff assistant, was present for the entire procedure. His assistance was required for proper patient positioning, prepping and draping, surgical exposure, retraction, forming the technical details of the operation, placement of the implants, closure of the wound, and placement of the sterile bandage. I attest to the content of the Intraoperative Record and any orders documented therein. Any exceptions are noted below.
--- NOTE | 2021-10-09 13:34 | Fluoroscopy Report ---
FL hip LT 2-3V CLINICAL HISTORY: LT LONG TROCH NAIL. Status post internal fixation. COMPARISON STUDY: 10/08/2021 FLUOROSCOPY TIME: 78 second. FLUOROSCOPIC IMAGES: 4 FINDINGS: The patient is status post placement of a trochanteric nail and long stem intratrochanteric jaspreet to transfix an intertrochanteric fracture of the left femoral neck. IMPRESSION: Status post internal fixation for intertrochanteric fracture. ACT 112: Negative or not required by law. Electronically signed by: Dandre Anderson M.D. 10/09/2021 1:33 PM
[2021-10-09] MEDS: fentaNYL citrate 100 MCG/2 ML VIAL IV PRN ×2 (13:38→13:43)
--- NOTE | 2021-10-09 14:03 | Anesthesiology Progress Note ---
Date of Service October 09, 2021 Anesthesia Post Procedure Vital Signs Vital Signs: Temp Pulse Pulse Resp BP BP Pulse Ox 10/09/21 14:00 36.4 C L 62 16 141/74 H 97 10/09/21 13:45 63 16 129/66 97 10/09/21 13:35 63 16 129/66 97 10/09/21 13:27 36.4 C L 68 16 129/84 99 10/09/21 11:24 36.8 C 75 18 158/79 H 97 10/09/21 07:24 36.7 C 62 16 147/76 H 90 10/09/21 01:18 36.7 C 62 18 156/80 H 96 10/09/21 01:17 36.7 C 62 18 156/80 H 96 10/08/21 23:56 60 18 139/72 90 10/08/21 21:19 63 18 154/74 H 92 10/08/21 18:09 76 21 159/78 H 96 10/08/21 17:27 36.7 C 82 20 159/78 H 96 10/08/21 16:00 76 20 96 Pulse Ox 10/09/21 14:00 10/09/21 13:45 10/09/21 13:35 10/09/21 13:27 10/09/21 11:24 10/09/21 07:24 10/09/21 01:18 10/09/21 01:17 96 10/08/21 23:56 10/08/21 21:19 10/08/21 18:09 10/08/21 17:27 96 10/08/21 16:00 Pain Intensity Left Hip: Pain Intensity: 1 Transfer of Care Handoff Completed per policy Notes Mental Status: alert / awake / arousable Patient Amnestic to Procedure: Yes Nausea / Vomiting: adequately controlled Pain: adequately controlled Airway Patency, RR, SpO2: stable & adequate BP & HR: stable & adequate Hydration State: stable & adequate Anesthetic Complications: no major complications apparent and Pt Satisfied with anesthetic care Notes: The patient is awake and comfortable.
[2021-10-09] MEDS: LACTATED RINGER'S 1,000 ML IV SCH (14:18)
[2021-10-09] MEDS: SODIUM CHLORIDE 0.9% 1000ML 1,000 ML IV SCH (14:23)
--- NOTE | 2021-10-09 18:08 | Progress Notes ---
DATE OF SERVICE: 10/09/2021 SUBJECTIVE: A 71-year-old female postoperative from IM nailing of a left intertrochanteric fracture. She is doing pretty well, not in much pain at all lying in bed. No chest pain or shortness of siobhan th. Not feeling dizzy or lightheaded. OBJECTIVE: VITAL SIGNS: Temperature 36.6. Vital signs are stable. GENERAL: Shows a pleasant, elderly female, sitting up in bed, looks comfortable. She was talking to someone on the phone when I entered the room this evening. LUNGS: Clear to auscultation. HEART: Regular rate and rhythm. ABDOMEN: Soft, nontender, nondistended. EXTREMITIES: Grossly neurovascularly intact except as follows: Examination of the left leg reveals the leg to be well aligned. Dressing is clean, dry and intact. Thigh is soft and supple. She is ne urologically intact. ASSESSMENT: A 71-year-old female with underlying atrial fibrillation, now postoperative from a left long trochanteric nail for an intertrochanteric fracture. She is doing well. Pain is controlled. S he is neurologically intact. PLAN: 1. DVT prophylaxis includes thigh-high TEDs, SCDs and we will start her back on her Eliquis 24 hours postop/post surgery. 2. PT/OT. She can weight bear as tolerated in the left lower extremity. 3. Pain control, doing okay with current pain regimen. 4. Medical management as per the medicine service. 5. Disposition: Plan to discharge to [facility] once medically stable. I need to see her back 2-3 weeks out from surgery date. Any orthopedic questions can be directed to me at . Job ID: [id number]
--- NOTE | 2021-10-09 20:23 | Hospitalist Progress Note ---
Date of Service October 09, 2021 Assessment & Plan (1) Closed intertrochanteric fracture of left hip: Plan: Admit to med-surg now postoperative from a left long trochanteric nail for an intertrochanteric fracture. Tylenol and morphine for pain (2) Paroxysmal atrial fibrillation: Plan: Holding Eliquis for surgery, will be restarted when hemostasis is achieved 24 hours after surgery. Continue flecainide and metoprolol as prescribed (3) Hypertension: Plan: BP elevated at 170/72 in emergency department Continue metoprolol as prescribed (4) Anemia: Plan: H/H is 11.2/33.7, consistent with patient's baseline, reports a history of iron infusions (5) COVID-19: Plan: Patient was diagnosed on 09/23 and reports receiving antibody infusion treatment. Patient has made full recovery. (6) CLL (chronic lymphocytic leukemia): Plan: Patient receives weekly infusions, next infusion scheduled for 10/15 (7) Hyponatremia: Plan: Sodium is 129 in emergency department, consistent with patient's baseline Patient is not symptomatic (8) MCFP current use of anticoagulant therapy: Plan: Held due to upcoming procedure, will be restarted when hemostasis is achieved SCD ordered (9) Full code status: Plan: Discussed with patient Admission and Anticipated Discharge Date Admission Date: October 08, 2021 Subjective Patient reports feeling well after surgery. She is a little tired however. Review of Systems Review of Systems: All systems reviewed & are unremarkable except as noted in HPI & below Physical Exam Physical Exam: Constitutional: WD/WN, vitals as above Eyes: PERRL, conjunctivae normal, anicteric sclerae ENMT: external ear and nose normal, oropharynx normal Neck: normal visual inspection Respiratory: normal respiratory effort, lungs clear to auscultation Auscultation: + wheezes Cardiovascular: Rate/Rhythm: regular rate and regular rhythm Vessels: no JVD Gastrointestinal (Abdomen): normal bowel sounds, soft, nontender, no hepatosplenomegaly Musculoskeletal: no cyanosis or clubbing, extremities motor strength 5/5 Head/Neck/Chest: head atraumatic Spine: thoracic spine normal to inspection and lumbar spine normal to inspection; no pain with cervical ROM and no cervical spinal tenderness Skin: no rashes, warm and dry Neurologic: patellar DTR's 2+ bilat, sensation intact and PERRL, EOMI, accommodation nl, no face palsy, no dysarthria Psychiatric: A+Ox3, euthymic affect Results & Data Results & Data ([facility]) Vital Signs (Past 12 Hours) Vital Signs Temp Pulse Pulse Resp BP Pulse Ox 10/09/21 19:00 36.4 C L 64 18 138/77 97 10/09/21 17:00 36.6 C 62 18 172/84 H 97 10/09/21 15:00 36.3 C L 71 18 168/91 H 97 10/09/21 14:30 36.5 C 61 18 137/67 95 10/09/21 14:00 36.3 C L 62 18 152/73 H 96 10/09/21 13:45 63 16 129/66 97 10/09/21 13:35 63 16 129/66 97 10/09/21 13:27 36.4 C L 68 16 129/84 99 10/09/21 11:24 36.8 C 75 18 158/79 H 97 PG Care Time/CCT Total # of Minutes Spent Total Time Spent with Patient: Total time spent is greater than 50% in coordination of care (as documented) at patient's floor/unit and/or counseling patient: Coding Level of Care Code 93028 Subseq Hosp Care Lvl 2 Diagnoses Closed intertrochanteric fracture of left hip S72.145A Encounter type: initial encounter Fracture alignment: nondisplaced Paroxysmal atrial fibrillation I48.0 Hypertension I10 Hypertension type: essential hypertension Anemia D64.9 COVID-19 U07.1 CLL (chronic lymphocytic leukemia) C91.90 Hyponatremia E87.1 MCFP current use of anticoagulant therapy Z79.01 Full code status Z78.9 Time Spent (min) 25 (1) Hypertension Hypertension type: essential hypertension Qualified Code(s): I10 - Essential (primary) hypertension (2) Closed intertrochanteric fracture of left hip Encounter type: initial encounter Fracture alignment: nondisplaced Qualified Code(s): S72.145A - Nondisplaced intertrochanteric fracture of left femur, initial encounter for closed fracture
[2021-10-09] MEDS: CETIRIZINE HCL 10 MG TABLET PO SCH (20:52)
[2021-10-09] MEDS: DOCUSATE SODIUM/SENNA 50/8.6MG TAB PO SCH (20:52)
[2021-10-09] MEDS: FLUTICASONE FUROATE 100MCG 14 PUFFS/INHALER INH SCH (20:52)
[2021-10-10] MEDS: SODIUM CHLORIDE 0.9% 1000ML 1,000 ML IV SCH (03:40)
[2021-10-10] MEDS ORDERED: COUGH DROP (SUGAR FREE) LOZ 24 LOZ/1 BOX BUCCAL ONE (04:49)
[2021-10-10] MEDS: MoRPHine SULFATE 4 MG/ML 1 ML CARP\\VIAL IV PRN ×2 (04:50→08:17)
[2021-10-10 05:45] LABS: Eosinophils # (auto) 0.01 K/uL (0-0.5); Eosinophils % (auto) 0.2 %; Hematocrit (blood only) 30.5 % (37-47); Hemoglobin 10.2 g/dL (12.0-16.0); Immature Granulocytes # (auto) 0.01 K/uL (0.00-0.02); Immature Granulocytes % (auto) 0.2 %; Lymphocytes # (auto) 1.17 K/uL (1.2-3.4); Lymphocytes % (auto) 19.6 %; Mean Corpuscular Hemoglobin 32.4 pg (25-34); Mean Corpuscular Hgb Conc 33.4 g/dL (32-36); Mean Corpuscular Volume 96.8 fL (80-100); Monocytes # (auto) 0.13 K/uL (0.11-0.59); Monocytes % (auto) 2.2 %; Neutrophils # (auto) 4.65 K/uL (1.4-6.5); Neutrophils % (auto) 77.8 %; Platelet Count 154 K/uL (130-400); RDW Coefficient of Variation 12.8 % (11.5-14.5); Red Blood Count 3.15 M/uL (4.2-5.4); White Blood Count 5.97 K/uL (4.8-10.8)
[2021-10-10 06:05] LABS: BUN Creatinine Ratio 10.2 (10-20); Calcium 8.5 mg/dl (8.5-10.1); Creatinine Clr Calc Pharmacy 77.2 ml/min; Est GFR (African American) 107.6 ml/min; Est GFR (Non-African American) 92.9 ml/min; Potassium 3.8 mmol/L (3.5-5.1)
[2021-10-10] MEDS: FLECAINIDE ACETATE 100 MG TABLET PO SCH ×2 (08:12→21:04)
[2021-10-10] MEDS: FUROSEMIDE 20 MG TAB PO SCH (08:12)
[2021-10-10] MEDS: METOPROLOL SUCC 25MG EXT REL TAB PO SCH (08:13)
[2021-10-10] MEDS: TRIAMCINOLONE ACET 0.1% CR 15 GM TUBE TOP SCH ×2 (08:14→14:24)
[2021-10-10] MEDS ORDERED: POTASSIUM CHLORIDE 10 MEQ TABCR PO SCH (09:00)
[2021-10-10] MEDS: oxyCODONE HCL IR 5 MG TAB (IMMEDIATE RELEASE) PO PRN ×3 (09:52→21:03)
--- NOTE | 2021-10-10 10:01 | Progress Notes ---
DATE OF SERVICE: 10/10/2021 SUBJECTIVE: A 71-year-old female postoperative day 1 from IM nailing of left intertrochanteric fract ure. She is doing pretty well. Had a pretty good night, slept reasonably well. No chest pain or sh ortness of breath. Pain seems to be improving. OBJECTIVE: VITAL SIGNS: Temperature 36.6. Vital signs are stable. GENERAL: Shows a pleasant middle-aged female. She is sitting up in bed, looks pretty comfortable th is morning. EXTREMITIES: Examination of the left leg reveals the leg to be well aligned. Dressing is clean, dry and intact. She can dorsiflex and plantarflex her foot appropriately. She is neurologically intact . LABORATORY DATA: Hemoglobin 10.2. Hematocrit 30.5. Electrolytes are stable. Sodium is still chron ically low, but stable. ASSESSMENT: A 71-year-old female postoperative day 1 from intramedullary nailing of left intertrocha nteric fracture. Doing reasonably well. She is hoping to go to rehabilitation. PLAN: 1. DVT prophylaxis includes thigh-high TEDs, SCDs, and we will restart her Eliquis 24 hours postop. 2. PT/OT. She can weight bear as tolerated in the left lower extremity. 3. Pain control, doing okay with current pain regimen. 4. Medical management as per the medicine service. 5. Disposition: She is orthopedically okay for discharge at any time. She is hoping to go to [facility]. We will get licensed social worker working on that today. I am okay with her discharge at any time. I need to see her back 2-3 weeks out from surgery date. Any orthopedic questions can be directed to me at [phone]. Job ID: [id number]
[2021-10-10] MEDS ORDERED: POLYETHYLENE (MIRALAX) 17 GM PACK PO ONE (14:34)
[2021-10-10] MEDS: APIXABAN 5 MG TABLET PO SCH (18:47)
[2021-10-10] MEDS: FLUTICASONE FUROATE 100MCG 14 PUFFS/INHALER INH SCH (21:08)
[2021-10-10] MEDS: CETIRIZINE HCL 10 MG TABLET PO SCH (21:08)
--- NOTE | 2021-10-10 21:16 | Hospitalist Progress Note ---
Date of Service October 10, 2021 Assessment & Plan (1) Closed intertrochanteric fracture of left hip: Plan: Admit to med-surg now postoperative from a left long trochanteric nail for an intertrochanteric fracture. Tylenol and morphine for pain added oxycodone and miralax to prevent constipation. (2) Paroxysmal atrial fibrillation: Plan: Holding Eliquis for surgery, will be restarted when hemostasis is achieved 24 hours after surgery. Continue flecainide and metoprolol as prescribed (3) Hypertension: Plan: BP elevated at 170/72 in emergency department Continue metoprolol as prescribed (4) Anemia: Plan: H/H is 11.2/33.7, consistent with patient's baseline, reports a history of iron infusions (5) COVID-19: Plan: Patient was diagnosed on 09/23 and reports receiving antibody infusion treatment. Patient has made full recovery. (6) CLL (chronic lymphocytic leukemia): Plan: Patient receives weekly infusions, next infusion scheduled for 10/15 (7) Hyponatremia: Plan: Sodium is 129 in emergency department, consistent with patient's baseline Patient is not symptomatic (8) custodial current use of anticoagulant therapy: Plan: Held due to upcoming procedure, will be restarted when hemostasis is achieved SCD ordered (9) Full code status: Plan: Discussed with patient Admission and Anticipated Discharge Date Admission Date: October 08, 2021 Subjective Patient reports having pain in the morning. She states it is better controlled now in the afternoon. Review of Systems Review of Systems: All systems reviewed & are unremarkable except as noted in HPI & below Physical Exam Physical Exam: Constitutional: WD/WN, vitals as above Eyes: PERRL, conjunctivae normal, anicteric sclerae ENMT: external ear and nose normal, oropharynx normal Neck: normal visual inspection Respiratory: normal respiratory effort, lungs clear to auscultation Auscultation: + wheezes Cardiovascular: Rate/Rhythm: regular rate and regular rhythm Vessels: no JVD Gastrointestinal (Abdomen): normal bowel sounds, soft, nontender, no hepatosplenomegaly Musculoskeletal: no cyanosis or clubbing, extremities motor strength 5/5 Head/Neck/Chest: head atraumatic Spine: thoracic spine normal to inspection and lumbar spine normal to inspection; no pain with cervical ROM and no cervical spinal tenderness Skin: no rashes, warm and dry Neurologic: patellar DTR's 2+ bilat, sensation intact and PERRL, EOMI, accommodation nl, no face palsy, no dysarthria Psychiatric: A+Ox3, euthymic affect Results & Data Results & Data ([facility]) Vital Signs (Past 12 Hours) Vital Signs Temp Pulse Resp BP Pulse Ox 10/10/21 14:57 36.6 C 66 16 112/56 L 91 PG Care Time/CCT Total # of Minutes Spent Total Time Spent with Patient: Total time spent is greater than 50% in coordination of care (as documented) at patient's floor/unit and/or counseling patient: Coding Level of Care Code 04054 Subseq Hosp Care Lvl 2 Diagnoses Closed intertrochanteric fracture of left hip S72.145A Encounter type: initial encounter Fracture alignment: nondisplaced Paroxysmal atrial fibrillation I48.0 Hypertension I10 Hypertension type: essential hypertension Anemia D64.9 COVID-19 U07.1 CLL (chronic lymphocytic leukemia) C91.90 Hyponatremia E87.1 custodial current use of anticoagulant therapy Z79.01 Full code status Z78.9 (1) Closed intertrochanteric fracture of left hip Encounter type: initial encounter Fracture alignment: nondisplaced Qualified Code(s): S72.145A - Nondisplaced intertrochanteric fracture of left femur, initial encounter for closed fracture (2) Hypertension Hypertension type: essential hypertension Qualified Code(s): I10 - Essential (primary) hypertension
[2021-10-10] MEDS: DOCUSATE SODIUM/SENNA 50/8.6MG TAB PO SCH (21:17)
[2021-10-11] MEDS: oxyCODONE HCL IR 5 MG TAB (IMMEDIATE RELEASE) PO PRN ×4 (02:08→16:09)
[2021-10-11 06:20] LABS: Hematocrit (blood only) 27.9 % (37-47); Hemoglobin 9.4 g/dL (12.0-16.0); Mean Corpuscular Hemoglobin 32.9 pg (25-34); Mean Corpuscular Hgb Conc 33.7 g/dL (32-36); Mean Corpuscular Volume 97.6 fL (80-100); Mean Platelet Volume 10.2 fL (7.4-10.4); Platelet Count 143 K/uL (130-400); RDW Coefficient of Variation 12.9 % (11.5-14.5); RDW Standard Deviation 45.6 fL (36.4-46.3); Red Blood Count 2.86 M/uL (4.2-5.4); White Blood Count 4.86 K/uL (4.8-10.8)
[2021-10-11 06:51] LABS: BUN Creatinine Ratio 13.2 (10-20); Calcium 8.4 mg/dl (8.5-10.1); Creatinine Clr Calc Pharmacy 85.9 ml/min; Est GFR (African American) 111.5 ml/min; Est GFR (Non-African American) 96.2 ml/min; Potassium 3.9 mmol/L (3.5-5.1)
[2021-10-11] MEDS: METOPROLOL SUCC 25MG EXT REL TAB PO SCH (07:39)
[2021-10-11] MEDS: FLECAINIDE ACETATE 100 MG TABLET PO SCH (07:40)
[2021-10-11] MEDS: FUROSEMIDE 20 MG TAB PO SCH (07:40)
[2021-10-11] MEDS: APIXABAN 5 MG TABLET PO SCH (07:41)
--- NOTE | 2021-10-11 08:11 | Progress Notes ---
DATE OF SERVICE: 10/11/2021. SUBJECTIVE: This is a 71-year-old female postop day 2 from left iron nailing of an intertrochanteric fracture. She is doing pretty well. Pain seems to be improving daily. No chest pain or shortness of breath. No feeling dizzy or lightheaded. OBJECTIVE: VITAL SIGNS: Temperature 36.8. Vital signs stable. GENERAL: Shows a pleasant elderly female. She is lying in bed and looks comfortable. EXTREMITIES: Examination of left hip reveals the dressing to be clean, dry and intact. Leg lengths are equal. NEUROLOGIC: She is neurologically intact. LABORATORY DATA: Hemoglobin 9.4. Hematocrit 27.9. Electrolytes are stable. She has got stable hyp onatremia. ASSESSMENT: A 71-year-old female postop day 2 from IM nailing of the left intertrochanteric fracture , doing pretty well. Pain is controlled. PLAN: 1. DVT prophylaxis include thigh high, TEDs, SCDs and back on her Eliquis. We started yesterday aft ernoon on her regular dose. 2. PT/OT. She can weightbear as tolerated, left lower extremity. 3. Pain control, doing okay with current pain regimen. 4. Medical management as per the medicine service. 5. Disposition. She is orthopedically okay for discharge anytime medically stable. I need to see h er back in 2-3 weeks out from surgery date. Any orthopedic questions can be directed to me at [phone] . Job ID: [id number]
[2021-10-11] MEDS ORDERED: POLYETHYLENE (MIRALAX) 17 GM PACK PO SCH (18:00)
--- NOTE | 2021-10-15 08:55 | Discharge Summary ---
Date of Service October 11, 2021 Admission HPI Per Admitting Provider This is a 71-year-old female with a PMH of hypertension, atrial fibrillation, CLL, anemia, and recent COVID-19 infection who presented to the emergency department for an evaluation of hip pain. The patient was on a stool when she lost her balance and fell several feet onto her left hip. She reports moderate, throbbing pain in and around her left hip, but denies pain elsewhere. She does not report hitting her head or other extremities. She denies lightheadedness, dizziness, weakness, confusion, headache, chest pain, nausea, and diaphoresis prior to or after the fall. Patient is on 5mg of Eliquis daily for atrial fibrillation, last reported dose was this morning at 9 AM. X ray revealed a nondisplaced, intertrochanteric fracture of the left femoral neck. Principal Diagnosis as stated in Problem 1 in A/P Discharge Exam Constitutional: WD/WN, vitals as above Eyes:PERRL, conjunctivae normal, anicteric sclerae ENMT:external ear and nose normal, oropharynx normal Neck:normal visual inspection Respiratory: normal respiratory effort, lungs clear to auscultation Cardiovascular: Rate/Rhythm: regular rate and regular rhythm Vessels: no JVD Gastrointestinal (Abdomen): normal bowel sounds, soft, nontender, no hepatosplenomegaly Musculoskeletal: no cyanosis or clubbing, extremities motor strength 5/5 Head/Neck/Chest: head atraumatic Spine: thoracic spine normal to inspection and lumbar spine normal to inspection; no pain with cervical ROM and no cervical spinal tenderness Skin:no rashes, warm and dry Neurologic: patellar DTR's 2+ bilat, sensation intact and PERRL, EOMI, accommodation nl, no face palsy, no dysarthria Psychiatric: A+Ox3, euthymic affect Discharge Data Allergies Allergy/AdvReac Type Severity Reaction Status Date / Time mold Allergy Intermediate SOB, Verified 10/08/21 14:45 itchy, watery eyes cat dander Allergy Mild itchy, Verified 10/08/21 14:45 watery eyes chlorthalidone Allergy Mild Dizzy, Verified 10/08/21 14:45 light headed chocolate flavor Allergy Mild Gastrointestinal Verified 10/08/21 14:45 Upset egg Allergy Mild Gastrointestinal Verified 10/08/21 14:45 Upset gluten Allergy Mild Gastrointestinal Verified 10/08/21 14:45 Upset dabigatran etexilate AdvReac Intermediate SKIN PEELS Verified 10/08/21 14:45 [From Pradaxa] erythromycin base AdvReac Intermediate NAUSEA / Verified 10/08/21 14:45 VOMITING rivaroxaban [From Xarelto] AdvReac Intermediate SKIN Verified 10/08/21 14:45 PEELING lactose AdvReac Mild GI SYMPTOMS Verified 10/08/21 14:45 Consultations 10/08/21 13:33 Consult Orthopedic Surgery Stat 10/08/21 13:36 ED Decision to Admit Stat 10/08/21 17:27 Consult Anesthesiology Routine Consult Orthopedic Surgery Routine Procedures Performed Operation Date: 10/09/21 11:20 Actual Procedures p Left Long Troch Nail(Left) - Nils Merritt MD Ordered Studies 10/09/21 11:20 FL hip LT 2-3V Routine Hospital Course (1) Closed intertrochanteric fracture of left hip: Admit to med-surg now postoperative from a left long trochanteric nail for an intertrochanteric fracture. Tylenol and morphine for pain added oxycodone and miralax to prevent constipation. Patient cleared for discharge by ortho on 10/11 No medical issues ongoing. May fully weightbear as tolerated on left leg. 2-3 weeks followup from surgery date. Any orthopedic questions can be directed to Dr. Merritt at [phone]. Will prescribe miralaxfor for possible constipation, will need to titrate off opiates (2) Paroxysmal atrial fibrillation: Holding Eliquis for surgery, will be restarted when hemostasis is achieved 24 hours after surgery. Continue flecainide and metoprolol as prescribed (3) Hypertension: BP elevated at 170/72 in emergency department Continue metoprolol as prescribed (4) Anemia: H/H is 11.2/33.7, consistent with patient's baseline, reports a history of iron infusions (5) COVID-19: Patient was diagnosed on 09/23 and reports receiving antibody infusion treatment. Patient has made full recovery. (6) CLL (chronic lymphocytic leukemia): Patient receives weekly infusions, next infusion scheduled for 10/15 (7) Hyponatremia: Sodium is 129 in emergency department, consistent with patient's baseline Patient is not symptomatic (8) MCFP current use of anticoagulant therapy: Held due to upcoming procedure, will be restarted when hemostasis is achieved SCD ordered (9) Full code status: Discussed with patient Total Time Total Time Spent Total Time Spent (In Minutes): 35 Discharge Plan Discharge Items Patient Disposition: Transfer Inpatient Rehab Fac Reason For Visit: LEFT HIP FRACTURE Discharge Diagnosis: IM Nailing of Left Hip Fracture. Activity: Per Instructions section Weightbearing: Full weightbearing Non-emergency contact: Primary Care Provider Call non-emergency contact if: you have any medication questions Follow-up/Referrals: Alberto Mcnamara MD [Primary Care Provider] - Nils Merritt MD [Physician] - (Orthopedic follow-up 2-3 weeks from surgery date.) Diet: Regular Addtl Attending Provider Instructions: May fully weightbear as tolerated on left leg. 2-3 weeks followup from surgery date. Any orthopedic questions can be directed to Dr. Merritt at [phone]. Pending Studies at Discharge: No Stand-Alone Forms: [employer], Smoking Cessation Skilled Items Patient informed of condition?: Yes DNR: No Discharge Level of Care: Acute rehab Communicable Disease: Yes Discharge Prognosis: Stable Lines: None Urinary Catheter: No Medications and DC Order Prescriptions: New oxycodone 5 mg Tablet 5 mg PO Q4H PRN (Reason: severe pain) Qty: 14 RF: 0 polyethylene glycol 3350 [Miralax] 17 gram Powder In Packet 17 g PO Q6 PRN (Reason: until a Bowel movement) Qty: 8 RF: 0 sennosides-docusate sodium [Senokot-S] 8.6-50 mg Tablet 2 tab PO HS Qty: 60 RF: 0 acetaminophen 325 mg Tablet 650 mg PO Q4H PRN (Reason: pain) Qty: 30 RF: 0 Arnuity Ellipta 100 mcg/actuation Blister With Device 1 puff inhalation PM Qty: 1 RF: 0 Continued flecainide 100 mg tablet 100 mg PO Q12H Qty: 180 RF: 3 Eliquis 5 mg tablet 5 mg PO BID Qty: 60 RF: 11 potassium chloride 10 mEq tablet extended release 10 meq PO 3XWK Qty: 60 RF: 3 cholecalciferol (vitamin D3) 50 mcg (2,000 unit) capsule 50 mcg PO DAILY Qty: 60 RF: 0 metoprolol succinate 50 mg tablet extended release 24 hr 75 mg PO QAM RF: 0 ipratropium-albuterol 0.5 mg-3 mg(2.5 mg base)/3 mL Solution For Nebulization 3 ml INHALATION QID PRN (Reason: Shortness Of Breath Or Wheezing) RF: 0 cetirizine [Zyrtec] 10 mg Tablet 10 mg PO QPM RF: 0 prochlorperazine maleate 10 mg tablet 10 mg PO Q6H PRN (Reason: Nausea) RF: 0 vitamin B complex Capsule 1 cap PO QAM RF: 0 Raw Green Superfoods Caps 500 mg capsule 2,000 mg PO QDL RF: 0 Gammagard Liquid 10 % Solution 25 g IV MONTHLY RF: 0 Calcium Magnesium + D 400-167-133 mg-mg-unit Tablet 1 tab PO TIDM RF: 0 Probiotic 10 billion cell Capsule 10,000 mmu cells PO QAM RF: 0 Vitamin C (ascorbate calcium) 814 mg/gram powder 400 mg PO DAILY RF: 0 zolpidem 5 mg tablet 10 mg PO HS PRN (Reason: insomnia) RF: 0 albuterol sulfate 90 mcg/actuation HFA aerosol inhaler 2 inh inhalation Q6H PRN (Reason: shortness of breath or wheezing) RF: 0 Neupogen 300 mcg/0.5 mL Syringe 300 mcg SUBCUT UD RF: 0 One-A-Day Womens Formula 18 mg iron-400 mcg-500 mg Tablet 1 tab PO DAILY RF: 0 colchicine 0.6 mg tablet 0.6 mg PO BID PRN (Reason: Pain) RF: 0 Changed furosemide 20 mg tablet 20 mg PO 6XWK Qty: 0 RF: 0 Discontinued turmeric root extract 500 mg Capsule 1,000 mg PO QDL RF: 0 ethambutol 400 mg Tablet 800 mg PO 3XWK RF: 0 Discharge Orders: Discharge Order (Routine); Ordered 10/11/21 Ordered By: Wei Rojas/Other Patient Handouts: Femur Fx Ch Admission Data Admit Date/Time: 10/08/21 15:45 Attending Provider: Wei Lozano Admit Provider: Carly Mars Primary Care Provider: Alberto Mcnamara Other Providers: [facility] ; Tony Zacarias ; Tye Argueta ; Joe Walton ; Parminder Holt Coding Level of Care Code D/C DAY MANAGEMENT >30 MINS Diagnoses Closed intertrochanteric fracture of left hip S72.145A Encounter type: initial encounter Fracture alignment: nondisplaced Paroxysmal atrial fibrillation I48.0 Hypertension I10 Hypertension type: essential hypertension Anemia D64.9 COVID-19 U07.1 CLL (chronic lymphocytic leukemia) C91.90 Hyponatremia E87.1 salvage determiner current use of anticoagulant therapy Z79.01 Full code status Z78.9
== END 2021-10-11 18:16 | DRG 481 ==
LOC: ED 12:32 → SUATTDRO 15:45 → EDINP 15:45 → 3E 18:30

== ENCOUNTER 2023-08-01 10:59 | Inpatient (IN) ==
[2023-08-01] MEDS ORDERED: SODIUM CHLORIDE 0.9% 1,000 ML IV SCH (11:45)
--- NOTE | 2023-08-01 12:08 | XRay Report ---
XR chest 1V portable HISTORY: 72 years-old Female Sepsis acute sepsis COMPARISON: 02/25/2023 TECHNIQUE: AP view of the chest FINDINGS: Cardiac silhouette is enlarged. Left subclavian pacer. Atherosclerosis of the aorta. No pneumothorax, pleural effusion or overt pulmonary edema. Patchy right basilar airspace opacities. Bones appear juany ssly intact. IMPRESSION: Right basilar airspace opacities are suggestive of pneumonia. Follow-up imaging after chon atment course is recommended. ACT 112: Negative or not required by law. The above report was generated using voice recognition software. It may contain grammatical, syntax o r spelling errors. Electronically signed by: Tereso Valle M.D. 08/01/2023 12:06 PM
[2023-08-01 12:33] LABS: HCO3 VBG 26 mmol/L; Oxygen Saturation VBG < 60.0 %; PCO2 VBG 42 mmHg (38-50); PO2 VBG 30 mmHg
[2023-08-01 12:38] LABS: Basophils # (auto) 0.01 K/uL (0.00-0.20); Basophils % (auto) 0.2 %; Hematocrit (blood only) 33.1 % (37.0-47.0); Hemoglobin 11.4 g/dl (12.0-16.0); Immature Granulocytes # (auto) 0.01 K/uL (0.01-0.20); Immature Granulocytes % (auto) 0.2 %; Lymphocytes # (auto) 0.29 K/uL (1.20-3.40); Lymphocytes % (auto) 5.7 %; Mean Corpuscular Hemoglobin 31.8 pg (25.0-34.0); Mean Corpuscular Hgb Conc 34.4 g/dL (32.0-36.0); Mean Corpuscular Volume 92.2 fL (80.0-100.0); Mean Platelet Volume 10.9 fL (9.4-12.4); Monocytes # (auto) 0.31 K/uL (0.11-0.59); Monocytes % (auto) 6.1 %; Neutrophils # (auto) 4.48 K/uL (1.40-6.50); Neutrophils % (auto) 87.8 %; Platelet Count 165 K/uL (130-400); RDW Coefficient of Variation 12.8 % (11.5-14.5); RDW Standard Deviation 43.5 fL (36.4-46.3); Red Blood Count 3.59 M/uL (4.20-5.40)
[2023-08-01 12:53] LABS: BUN Creatinine Ratio 13.3 (10-20); Calcium 8.8 mg/dl (8.6-10.3); Creatinine Clr Calc Pharmacy 74.9 ml/min; Est GFR (African American) 106.3 ml/min; Est GFR (Non-African American) 91.7 ml/min; Magnesium 1.7 mg/dl (1.7-2.4); Potassium 3.6 mmol/L (3.5-5.1)
[2023-08-01 12:54] LABS: Albumin Level 4.2 gm/dl (3.4-5.0); Bilirubin,Total 0.4 mg/dl (0.2-1.0); Total Protein 7.4 gm/dl (6.0-8.3)
[2023-08-01 12:59] LABS: Troponin I High Sensitivity 13.8 pg/ml (0-14)
[2023-08-01] MEDS ORDERED: ALBUT/IPRATROP 3MG/0.5MG NEB 3 ML VIAL NEB STA (13:14)
[2023-08-01 13:26] LABS: Adenovirus PCR Not Detected (NotDetected); Bordetella parapertussis PCR Not Detected (NotDetected); Bordetella pertussis PCR Not Detected (NotDetected); Chlamydia pneumoniae PCR Not Detected (NotDetected); Coronavirus 229E PCR Not Detected (NotDetected); Coronavirus CoV-2 (COVID19)PCR Not Detected (NotDetected); Coronavirus HKU1 PCR Not Detected (NotDetected); Coronavirus NL63 PCR Not Detected (NotDetected); Coronavirus OC43PCR Not Detected (NotDetected); Human Metapneumovirus PCR Not Detected (NotDetected); Influenza A PCR Not Detected (NotDetected); Influenza B PCR Not Detected (NotDetected); Mycoplasma pneumoniae PCR Not Detected (NotDetected); Parainfluenza Virus 1 PCR Not Detected (NotDetected); Parainfluenza Virus 2 PCR Not Detected (NotDetected); Parainfluenza Virus 3 PCR Not Detected (NotDetected); Parainfluenza Virus 4 PCR Not Detected (NotDetected); Respiratory Syncytial VirusPCR Not Detected (NotDetected); Rhinovirus/Enterovirus PCR Not Detected (NotDetected)
[2023-08-01] MEDS ORDERED: AZITHROMYCIN 250 MG TAB PO ONE (13:33)
[2023-08-01] MEDS ORDERED: cefTRIAXone SODIUM 2,000 MG/50 ML BAG IV STA (13:33)
--- NOTE | 2023-08-01 13:48 | History & Physical Report ---
Date of Service August 01, 2023 Assessment & Plan (1) Acute respiratory failure with hypoxia: Plan: -Admit to the PCU on tele and pulse oximetry -Presented with a week of progressive SOB, cough, and right chest discomfort -Found to have a right basilar opacity consistent with pneumonia -Noted to be saturating at 90-91% on my exam, now stable on 2L NC -No leukocytosis, but this could be due to her CLL, full resp biofire is negative -At this time it appears that her AHRF with hypoxia is multifactorial due to CAP likely exacerbating her asthma as well -Patient did note improvement in symptoms temporarily with DuoNeb given in the ED but is still significantly wheezy on exam -S/P ceftriaxone, azithromycin, 1L NSS, and a duoneb treatment in the ED -Will continue with Ceftriaxone and Azithromycin for now to cover CAP -Will give 2gm IV mag-sulfate and an hour-long duoneb treatment for her asthma exacerbation -Will try and avoid systemic steroids with her hx of VALORIE for now, but if she is still in respiratory distress after will start -If patient is not improving after treatment today would consult Pulmonology to follow -Incentive spirometry, flutter therapy, scheduled DuoNebs, prn Guaifenesin/Codeine for cough -PRN O2 to keep SpO2 at or above 94% -Home xarelto for DVT PPX -HH diet with 2gm sodium and 1800 mL fluid restriction -AM CBC, BMP, Mag, PT/INR 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 -Sodium is 128 today, baseline is 129-130 -Likely a combination of SIADH and poor oral intake over the past week -Patient appears slightly dry on exam -S/P 1L NSS in the ED, hold additional IV fluids for now as she is stable -Monitor am Sodium level (6) Hypertension: Plan: -Stable -Continue metoprolol but will hold lasix as she appears slightly dry on exam (7) CLL (chronic lymphocytic leukemia): Plan: -Continue to follow with Heme/Onc (8) Paroxysmal atrial fibrillation: Plan: -Stable -Continue metoprolol, flecainide, and Xarelto Plan The patient was discussed with Dr. Argueta at the time of the admission History of Present Illness Chief Complaint: SOB, fevers, chest discomfort Primary Care Provider: DO Lashonda Fritz is a 72 year old female with a PMH significant for CLL (B-Cell) currently on Q6W IVIG, Previous VALORIE infection in 2019 (Was followed by ID and completed 9 months of treatment), afib on Xarelto, HTN, SIADH, tachy-luiz syndrome S/P pacemaker placement who presented to the [facility] ED on 08/01 for ongoing SOB, chest discomfort, and fevers. She was noted to have a temperature of 37.9C but was otherwise stable. Labs were significant for a lymphocyte count of 0.29, sodium of 128 (baseline is near 130), negative high sen trop and negative full respiratory biofire panel. Chest xray was read as "Right basilar airspace opacities are suggestive of pneumonia. Follow-up imaging after treatment course is recommended. ". Prior to admission the patient was given ceftriaxone, azithromycin, an albuterol treatment, and 1L NSS. We were asked to evaluate the patient for admission as she is high risk with immunosuppression. At the time of the exam the patient was sitting in bed in no acute distress with her sitting bedside. She states that she started to develop a minimally productive cough, increased SOB, right chest discomfort while coughing, and generalized weakness one week ago. She has been using OTC antitussive and her rescue albuterol inhaler with minimal improvement. This am she felt much for fatigued and SOB promoting her to come to the ED. She has been having difficultly speaking in complete sentences due to her significant cough. She confirms that she has been taking all other prescriptions as prescribed, including her Xarelto. She denies hemoptysis, nausea, vomiting, increased abd pain compared to her chronic pain from CLL, dysuria, hematuria, melena, changes in bowel habits, BL swelling and recent trauma. She states that she is currently on Q6W IVIG infusions with her next appointment in approximately 2 weeks. She is a full code and wishes for her to make medical decisions for her if she cannot make them herself. Please refer to Dr. Argueta's attestation for any changes to the treatment plan Allergies Allergy/AdvReac Type Severity Reaction Status Date / Time mold Allergy Intermediate SOB, Verified 08/01/23 12:46 itchy, watery eyes cat dander Allergy Mild itchy, Verified 08/01/23 12:46 watery eyes chlorthalidone Allergy Mild Dizzy, Verified 08/01/23 12:46 light headed chocolate flavor Allergy Mild Gastrointestinal Verified 08/01/23 12:46 Upset gluten Allergy Mild Gastrointestinal Verified 08/01/23 12:46 Upset dabigatran etexilate AdvReac Intermediate SKIN PEELS Verified 08/01/23 12:46 [From Pradaxa] erythromycin base AdvReac Intermediate NAUSEA / Verified 08/01/23 12:46 VOMITING rivaroxaban [From Xarelto] AdvReac Intermediate SKIN Verified 08/01/23 12:46 PEELING lactose AdvReac Mild GI SYMPTOMS Verified 08/01/23 12:46 Home Medications Medication Instructions Recorded Confirmed Type Raw Green Superfoods Caps 2,000 mg PO QDL 07/05/20 08/01/23 History cetirizine 10 mg tablet (Zyrtec) 10 mg PO QPM 07/05/20 08/01/23 History immune glob,gamma (IgG) 10 25 g IV MONTHLY 07/05/20 08/01/23 History %-gly-IgA over 50 mcg/mL injection solution (Gammagard Liquid) prochlorperazine maleate 10 mg 10 mg PO Q6H PRN Nausea 07/05/20 08/01/23 History tablet vitamin B complex 1 cap PO QAM 07/05/20 08/01/23 History Lactobacillus acidophilus 10 10,000 mmu cells PO QAM 09/12/20 08/01/23 History billion cell capsule (Probiotic) ascorbate calcium (vitamin C) 814 400 mg PO DAILY 11/30/20 08/01/23 History mg/gram oral powder (Vitamin C (ascorbate calcium)) [id number] carb-vit K 1 tab PO DAILY 10/08/21 08/01/23 History 18 mg iron-400 mcg-500 mg tablet (One-A-Day Womens Formula) acetaminophen 325 mg tablet 650 mg (2 x 325 mg) PO Q4H PRN 10/11/21 08/01/23 Rx pain #30 tabs turmeric root extract 500 mg 1,000 mg PO DAILY 12/07/21 08/01/23 History capsule albuterol sulfate 90 mcg/actuation 2 inh inhalation Q6H PRN shortness 08/21/22 08/01/23 Rx aerosol inhaler of breath or wheezing #8.5 grams potassium chloride 10 mEq 10 meq PO 3XWK #60 tabs 09/26/22 08/01/23 Rx tablet,extended release ipratropium 0.5 mg-albuterol 3 mg 3 ml inhalation QID PRN Shortness 11/14/22 08/01/23 Rx (2.5 mg base)/3 mL nebulization Of Breath Or Wheezing #90 mL soln flecainide 100 mg tablet 100 mg PO Q12H #180 tabs 12/27/22 08/01/23 Rx calcium carb-magnesium oxide-vit 1 tab PO TIDM 02/11/23 08/01/23 History D3 400 mg-167 mg-133 unit tablet (Calcium Magnesium + D) sodium chloride 7 % for 1 inh inhalation BID PRN Unknown 02/11/23 08/01/23 History nebulization lorazepam 0.5 mg tablet 0.5 mg PO Q8H PRN anxiety #20 tabs 03/05/23 08/01/23 Rx romosozumab-aqqg 210 mg/2.34 210 mg (2.34 mL) subcut ONCE #2.34 05/01/23 08/01/23 Rx mL(105 mg/1.17 mL x2)subcutaneous mL syringe (Evenity) dicyclomine 10 mg capsule 10 mg PO TID PRN IBS with diarrhea 05/19/23 08/01/23 Rx #90 caps sertraline 50 mg tablet 50 mg PO DAILY #90 tabs 06/03/23 08/01/23 Rx zolpidem 5 mg tablet 5 mg PO HS PRN insomnia #30 tabs 07/30/23 08/01/23 Rx cholecalciferol (vitamin D3) 50 50 mcg PO QAM 08/01/23 08/01/23 History mcg (2,000 unit) capsule furosemide 20 mg tablet 20 mg PO QAM 08/01/23 08/01/23 History metoprolol succinate 50 mg 100 mg PO QAM 08/01/23 08/01/23 History tablet,extended release 24 hr rivaroxaban 20 mg tablet (Xarelto) 20 mg PO PM 08/01/23 08/01/23 History Past Med/Surg History Medical History Pelvis fracture (01/10/23) superior and inferior pubic ramus fracture on the left side Osteoporosis COVID-19 VALORIE (mycobacterium avium-intracellulare) Pacemaker medtronic dual chamber 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 Pneumonia DECEMBER 2018. TREATED AT [place], RECOVERED. Asthma H/O. NO PROBLEMS CURRENTLY. Atrial fibrillation with RVR CLL (chronic lymphocytic leukemia) Chronic lymphocytosis. Hypertension Surgical History History of permanent cardiac pacemaker placement (~07/07/20) meditronic dual chamber pacemaker placed @ [facility]--follows with Dr. Miller S/P bilateral breast reduction History of bronchoscopy 02/2019 for evaluation of possible TB. Bronchial washings showed benign findings. H/O reduction mammoplasty Hx of vaginal hysterectomy History of carpal tunnel release BILATERAL History of repair of rotator cuff RIGHT SHOULDER History of arthroscopy RIGHT KNEE History of appendectomy History of esophagogastroduodenoscopy (EGD) History of tonsillectomy History of cardiac cath NO STENTS. 2001. History of colonoscopy Family History Mother Colon cancer Colorectal cancer Uterine cancer Sister Colon cancer Colorectal cancer Father Prostate cancer Stroke Son Family history of reaction to anesthesia fights when wakes Brother Diabetes Denies family history of Ovarian cancer Myocardial infarction Breast cancer Lung cancer Social History Smoking Status: Never smoker Second Hand Exposure: No; Do You Dip or Chew Tobacco: No; Hx Alcohol Use: No Hx Substance Use: No Preferred Language: Mongolian Communication Ability: Effective Visual Impairment: Limited Hearing Ability: Normal Deputy Fire Marshal Required: No Beliefs That Will Affect Care: None marital status: Current Living Situation: Spouse current occupational status: retired How many Children do You have: 4 Feels Safe at Home: Yes Safety Concerns: Feels Safe At This Time Childhood Exposure to Second-Hand Smoke: No caffeine: Yes Dental Care, Regularly: Yes Physical Activity Frequency: 5-6 Times per Week Seatbelt Use: always Sunscreen Use: Yes Assistive Devices: Glasses Physical Exam Physical Exam: Physical Exam: General: In no acute distress, stated age, ill but non-toxic appearing HEENT: Normocephalic, atraumatic, no scleral icterus, pupils around round, symmetrical, and reactive to light, moist mucus membranes, negative JVD, trachea midline, no thyromegaly Chest/Pulm: Mild-moderate respiratory distress with pursed lip breathing, symmetrical chest expansion, rhonchi noted in the ELL with significant expiratory wheezing in all other valladares, Cardiac: Irregular rate and rhythm, no murmurs noted Abdomen: Negative for ascites and bruising, normoactive bowel sounds, soft, non-tender to palpation throughout Musculoskeletal: Symmetrical and without signs of acute trauma, upper and lower extremities with full ROM, no atrophy, spasticity, or flaccidity Extremities: Radial, dorsalis pedis, and posterior tibial pulses are intact and symmetrical, no edema noted in the BL LE's Skin: Warm, dry, no rashes , lesions, or scars noted Neuro: Alert and oriented to person, place, month, year, and president, no focal defects, no tremors noted Psych: No acute distress, calm and cooperative during the exam Results & Data Results & Data Vital Signs (Past 12 Hours) Vital Signs Temp Pulse Resp BP BP Pulse Ox O2 Del Method 08/01/23 12:30 74 20 178/94 H 95 Room Air 08/01/23 12:05 66 08/01/23 12:01 66 20 153/85 H 94 Room Air 08/01/23 11:43 37.9 C H 12 153/86 H 96 Room Air 08/01/23 10:59 Room Air 08/01/23 10:59 37.8 C H 73 16 161/83 H 95 Laboratory Results Abnormal lab results 08/01/23 Range/Units 12:13 RBC 3.59 L (4.20-5.40) M/uL Hgb 11.4 L (12.0-16.0) g/dl Hct 33.1 L (37.0-47.0) % Lymph # (Auto) 0.29 L (1.20-3.40) K/uL Sodium 128 L (136-145) mmol/L Chloride 95 L (98-107) mmol/L Glucose 128 H (70-99(Fasting)) mg/dl Diagnostic Findings Chest X-Ray 08/01/23 11:36 XR chest 1V portable HISTORY: 72 years-old Female Sepsis acute sepsis COMPARISON: 02/25/2023 TECHNIQUE: AP view of the chest FINDINGS: Cardiac silhouette is enlarged. Left subclavian pacer. Atherosclerosis of the aorta. No pneumothorax, pleural effusion or overt pulmonary edema. Patchy right basilar airspace opacities. Bones appear grossly intact. IMPRESSION: Right basilar airspace opacities are suggestive of pneumonia. Follow-up imaging after treatment course is recommended. ACT 112: Negative or not required by law. The above report was generated using voice recognition software. It may contain grammatical, syntax or spelling errors. Electronically signed by: Tereso Valle M.D. 08/01/2023 12:06 PM ECG Additional Comments: Atrial fibrillation Left axis deviation Nonspecific T wave abnormality Abnormal ECG When compared with ECG of 25-FEB-2023 22:08, Questionable change in QRS duration Code Status & VTE Plan Code Status Full code Supervising Physician Co-Signing Physician Notes I personally saw and examined the patient. I verified all garcia points and agree with Tony Garzon PA-C with the following exceptions and/or additions: 72 year old female presents to the ER with shortness of breath, generalized weakness and fever/chills for the last week. Immunosuppressed with CLL on IVIg treatment. O/E A&Ox3, HS irregular rhythm, normal rate, no murmurs, using accessory muscles, right basal crackles, no wheezing, Abdo SNT, calves SNT A/P Pneumonia - immunosuppressed without good family support at home (she takes care of her with Alzheimer's). Recommend inpatient observation. Ceftriaxone + azithromycin PG Care Time/CCT Total # of Minutes Spent Total Time Spent with Patient: Total time spent is greater than 50% in coordination of care (as documented) at patient's floor/unit and/or counseling patient: Coding [place] [address] INT INP/OBS CARE 2/55MIN Patient Type Established Medical Decision Making Moderate Complexity Diagnoses Acute respiratory failure with hypoxia J96.01 Pneumonia J18.9 Laterality: right Lung location: middle lobe of lung Pneumonia type: due to unspecified organism Asthma exacerbation J45.901 Chest pain R07.9 Hyponatremia E87.1 Essential hypertension I10 Hypertension type: essential hypertension CLL (chronic lymphocytic leukemia) C91.90 Paroxysmal atrial fibrillation I48.0 (2) Pneumonia Laterality: right Lung location: middle lobe of lung Pneumonia type: due to unspecified organism Qualified Code(s): J18.9 - Pneumonia, unspecified organism (6) Hypertension Hypertension type: essential hypertension Qualified Code(s): I10 - Essential (primary) hypertension
[2023-08-01] MEDS ORDERED: ALBUT/IPRATROP 3MG/0.5MG NEB 3 ML VIAL NEB ONE (14:15)
--- NOTE | 2023-08-01 14:28 | Emergency Department Note ---
History of Present Illness General Chief Complaint: Shortness of Breath/Dyspnea Stated Complaint: REF BY , FEVER, SOB Time Seen by Provider: 08/01/23 11:20 History of Present Illness Provider Complaint: shortness of breath and cough Onset (ago): week(s) (1) Consistency/Duration: + progressively worsening Relieved By: + nothing Exacerbated By: + coughing Context: no recent travel Associated symptoms: + cough, + wheezing, + sputum production and + chest congestion; no orthopnea, no hemoptysis or no nausea/vomiting HPI Narrative: On immunotherapy for CLL. On Xarelto has not missed any doses. Home Medications Medication Instructions Recorded Confirmed Type Raw Green Superfoods Caps 2,000 mg PO QDL 07/05/20 08/01/23 History cetirizine 10 mg tablet (Zyrtec) 10 mg PO QPM 07/05/20 08/01/23 History immune glob,gamma (IgG) 10 25 g IV MONTHLY 07/05/20 08/01/23 History %-gly-IgA over 50 mcg/mL injection solution (Gammagard Liquid) prochlorperazine maleate 10 mg 10 mg PO Q6H PRN Nausea 07/05/20 08/01/23 History tablet vitamin B complex 1 cap PO QAM 07/05/20 08/01/23 History Lactobacillus acidophilus 10 10,000 mmu cells PO QAM 09/12/20 08/01/23 History billion cell capsule (Probiotic) ascorbate calcium (vitamin C) 814 400 mg PO DAILY 11/30/20 08/01/23 History mg/gram oral powder (Vitamin C (ascorbate calcium)) oxzxmluq-[id number]-gngl-FA-Ca carb-vit K 1 tab PO DAILY 10/08/21 08/01/23 History 18 mg iron-400 mcg-500 mg tablet (One-A-Day Womens Formula) acetaminophen 325 mg tablet 650 mg (2 x 325 mg) PO Q4H PRN 10/11/21 08/01/23 Rx pain #30 tabs turmeric root extract 500 mg 1,000 mg PO DAILY 12/07/21 08/01/23 History capsule albuterol sulfate 90 mcg/actuation 2 inh inhalation Q6H PRN shortness 08/21/22 08/01/23 Rx aerosol inhaler of breath or wheezing #8.5 grams potassium chloride 10 mEq 10 meq PO 3XWK #60 tabs 09/26/22 08/01/23 Rx tablet,extended release ipratropium 0.5 mg-albuterol 3 mg 3 ml inhalation QID PRN Shortness 11/14/22 08/01/23 Rx (2.5 mg base)/3 mL nebulization Of Breath Or Wheezing #90 mL soln flecainide 100 mg tablet 100 mg PO Q12H #180 tabs 12/27/22 08/01/23 Rx calcium carb-magnesium oxide-vit 1 tab PO TIDM 02/11/23 08/01/23 History D3 400 mg-167 mg-133 unit tablet (Calcium Magnesium + D) sodium chloride 7 % for 1 inh inhalation BID PRN Unknown 02/11/23 08/01/23 History nebulization lorazepam 0.5 mg tablet 0.5 mg PO Q8H PRN anxiety #20 tabs 03/05/23 08/01/23 Rx romosozumab-aqqg 210 mg/2.34 210 mg (2.34 mL) subcut ONCE #2.34 05/01/23 08/01/23 Rx mL(105 mg/1.17 mL x2)subcutaneous mL syringe (Evenity) dicyclomine 10 mg capsule 10 mg PO TID PRN IBS with diarrhea 05/19/23 08/01/23 Rx #90 caps sertraline 50 mg tablet 50 mg PO DAILY #90 tabs 06/03/23 08/01/23 Rx zolpidem 5 mg tablet 5 mg PO HS PRN insomnia #30 tabs 07/30/23 08/01/23 Rx cholecalciferol (vitamin D3) 50 50 mcg PO QAM 08/01/23 08/01/23 History mcg (2,000 unit) capsule furosemide 20 mg tablet 20 mg PO QAM 08/01/23 08/01/23 History metoprolol succinate 50 mg 100 mg PO QAM 08/01/23 08/01/23 History tablet,extended release 24 hr rivaroxaban 20 mg tablet (Xarelto) 20 mg PO PM 08/01/23 08/01/23 History Allergies Allergy/AdvReac Type Severity Reaction Status Date / Time mold Allergy Intermediate SOB, Verified 08/01/23 12:46 itchy, watery eyes cat dander Allergy Mild itchy, Verified 08/01/23 12:46 watery eyes chlorthalidone Allergy Mild Dizzy, Verified 08/01/23 12:46 light headed chocolate flavor Allergy Mild Gastrointestinal Verified 08/01/23 12:46 Upset gluten Allergy Mild Gastrointestinal Verified 08/01/23 12:46 Upset dabigatran etexilate AdvReac Intermediate SKIN PEELS Verified 08/01/23 12:46 [From Pradaxa] erythromycin base AdvReac Intermediate NAUSEA / Verified 08/01/23 12:46 VOMITING rivaroxaban [From Xarelto] AdvReac Intermediate SKIN Verified 08/01/23 12:46 PEELING lactose AdvReac Mild GI SYMPTOMS Verified 08/01/23 12:46 Past Med/Surg History Medical History Pelvis fracture (01/10/23) superior and inferior pubic ramus fracture on the left side Osteoporosis COVID-19 VALORIE (mycobacterium avium-intracellulare) Pacemaker medtronic dual chamber 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 Pneumonia DECEMBER 2018. TREATED AT [place], RECOVERED. Asthma H/O. NO PROBLEMS CURRENTLY. Atrial fibrillation with RVR CLL (chronic lymphocytic leukemia) Chronic lymphocytosis. Hypertension Surgical History History of permanent cardiac pacemaker placement (~07/07/20) meditronic dual chamber pacemaker placed @ [facility]--follows with Dr. Miller S/P bilateral breast reduction History of bronchoscopy 02/2019 for evaluation of possible TB. Bronchial washings showed benign findings. H/O reduction mammoplasty Hx of vaginal hysterectomy History of carpal tunnel release BILATERAL History of repair of rotator cuff RIGHT SHOULDER History of arthroscopy RIGHT KNEE History of appendectomy History of esophagogastroduodenoscopy (EGD) History of tonsillectomy History of cardiac cath NO STENTS. 2001. History of colonoscopy Family History Mother Colon cancer Colorectal cancer Uterine cancer Sister Colon cancer Colorectal cancer Father Prostate cancer Stroke Son Family history of reaction to anesthesia fights when wakes Brother Diabetes Denies family history of Ovarian cancer Myocardial infarction Breast cancer Lung cancer Social History Smoking Status: Never smoker Second Hand Exposure: No; Do You Dip or Chew Tobacco: No; Hx Alcohol Use: Yes Alcohol type: wine Alcohol Intake Frequency: Monthly or Less Hx Substance Use: No Preferred Language: Yoruba Communication Ability: Effective Visual Impairment: Limited Hearing Ability: Normal Wire Walker Required: No Beliefs That Will Affect Care: None marital status: Current Living Situation: Spouse current occupational status: retired How many Children do You have: 4 Feels Safe at Home: Yes Childhood Exposure to Second-Hand Smoke: No caffeine: Yes Dental Care, Regularly: Yes Physical Activity Frequency: 5-6 Times per Week Seatbelt Use: always Sunscreen Use: Yes Assistive Devices: Walker Physical Exam 2 Vital Signs: Vital Signs - 24 hr 08/01/23 10:59 08/01/23 10:59 08/01/23 11:43 Temperature 37.8 C H 37.9 C H Temperature Source Temporal Artery Sc an Axillary Pulse Rate 73 Respiratory Rate 16 12 Respiratory Depth Normal Blood Pressure 161/83 H Blood Pressure [Ri ght Arm] 153/86 H Blood Pressure Katlin n 109 Blood Pressure Katlin n [Right Arm] 108 Pulse Oximetry 95 96 Oxygen Delivery Me thod Room Air Room Air Sepsis Recent Feve r Within 48 Hours Yes Sepsis New/Unexpla ined Change in Men ish Status N/A Sepsis Action Take n by Nursing No Action Required 08/01/23 12:01 08/01/23 12:05 08/01/23 12:30 Temperature Temperature Source Pulse Rate 66 66 74 Respiratory Rate 20 20 Respiratory Depth Blood Pressure 153/85 H 178/94 H Blood Pressure [Ri ght Arm] Blood Pressure Katlin n 107 122 Blood Pressure Katlin n [Right Arm] Pulse Oximetry 94 95 Oxygen Delivery Me thod Room Air Room Air Sepsis Recent Feve r Within 48 Hours Sepsis New/Unexpla ined Change in Men ish Status Sepsis Action Take n by Nursing Physical Exam: Physical Exam GENERAL: oriented to person, place, and time. appears well-developed and well- nourished. HENT: Exam performed. - Head: Normocephalic and atraumatic. EYES: Conjunctivae and EOM are normal. Right eye exhibits no discharge. Left eye exhibits no discharge. No scleral icterus. NECK: Normal range of motion. Neck supple. No JVD present. CV: Normal rate, irregular rhythm, normal heart sounds and intact distal pulses. There is no peripheral edema. Palpable radial pulses bue. PULM/CHEST: Expiratory wheezes bilaterally. ABD: The abdomen is soft. There is no tenderness. NEURO: Motor and sensation grossly intact. SKIN: Skin is warm and dry. He is not diaphoretic. PSYCH: normal mood and affect. Behavior is normal. Judgment and thought content normal. Course Course 1120: The patient was evaluated in room C3. A complete history and physical exam was performed Cardiac monitoring: An order was placed for continuous cardiac monitoring. The monitor shows a rate of 70 with atrail fib rhythm interpreted by tx 1335: Vital signs stable. Labs are significant for a sodium of 128. BioFire, procalcitonin, white blood cell, lactic acid within normal limits. Chest x-ray does show new infiltrate in the right middle lobe. Patient has a high PSI score, patient will be treated with Rocephin and azithromycin [facility]. PSI/PORT Score: Pneumonia Severity Index for CAP from [email or web address] on 08/01/2023 All calculations should be rechecked by clinician prior to use RESULT SUMMARY: 111 points Risk Class IV, 8.2-9.3% mortality. Hospitalization recommended based on risk. INPUTS: Age > 71 years Sex > -10 = Female half-way resident > 0 = No Neoplastic disease > 30 = Yes Liver disease history > 0 = No CHF history > 0 = No Cerebrovascular disease history > 0 = No Renal disease history > 0 = No Altered mental status > 0 = No Respiratory rate >=0 breaths/min > 0 = No Systolic blood pressure <90 mmHg > 0 = No Temperature <35&deg;C (95&deg;F) or >39.9&deg;C (103.8&deg;F) > 0 = No Pulse >=25 beats/min > 0 = No pH <7.35 > 0 = No BUN >=0 mg/dL or >=1 mmol/L > 0 = No Sodium <130 mmol/L > 20 = Yes Glucose >=50 mg/dL or >=4 mmol/L > 0 = No Hematocrit <30% > 0 = No Partial pressure of oxygen <60 mmHg or <8 kPa > 0 = No Pleural effusion on x-ray > 0 = No Administered Medications Discontinued Medications Albuterol (Albut/Ipratrop 3mg/0.5mg Neb 3 Ml Vial) 3 ml NEB NOW STA; Protocol Stop: 08/01/23 13:15 Last Admin: 08/01/23 13:19 Dose: 3 ml Documented By: AURELIO Azithromycin (Azithromycin 250 Mg Tab) 500 mg PO NOW ONE Stop: 08/01/23 13:34 Last Admin: 08/01/23 13:43 Dose: 500 mg Documented By: AURELIO Sodium Chloride (Nss) 1,000 mls @ 999 mls/hr IV .Q1H1M ARNIE Stop: 08/01/23 12:45 Last Infusion: 08/01/23 13:20 Dose: Infused Documented By: Admin: 08/01/23 12:17 Dose: 999 mls/hr Documented By: AURELIO Ceftriaxone Sodium (Rocephin) 2,000 mg in 50 mls @ 100 mls/hr IV NOW STA Stop: 08/01/23 14:02 Last Admin: 08/01/23 13:44 Dose: 100 mls/hr Documented By: AURELIO Medical Decision Making Laboratory Data Attestation: I reviewed the patient's lab results. 08/01/23 12:13 08/01/23 12:13 Lab Results 08/01/23 08/01/23 08/01/23 Range/Units 11:56 12:13 12:19 WBC 5.10 (4.8-10.8) K/ul RBC 3.59 L (4.20-5.40) M/uL Hgb 11.4 L (12.0-16.0) g/dl Hct 33.1 L (37.0-47.0) % MCV 92.2 (80.0-100.0) fL MCH 31.8 (25.0-34.0) pg MCHC 34.4 (32.0-36.0) g/dL RDW Std Deviation 43.5 (36.4-46.3) fL RDW Coeff of Imani 12.8 (11.5-14.5) % Plt Count 165 (130-400) K/uL MPV 10.9 (9.4-12.4) fL Immature Gran % (Auto) 0.2 % Neut % (Auto) 87.8 % Lymph % (Auto) 5.7 % Parmer % (Auto) 6.1 % Eos % (Auto) 0.0 % Baso % (Auto) 0.2 % Neut # (Auto) 4.48 (1.40-6.50) K/uL Lymph # (Auto) 0.29 L (1.20-3.40) K/uL Parmer # (Auto) 0.31 (0.11-0.59) K/uL Eos # (Auto) 0.00 (0.00-0.50) K/uL Baso # (Auto) 0.01 (0.00-0.20) K/uL Immature Gran # (Auto) 0.01 (0.01-0.20) K/uL PT Cancelled INR Cancelled APTT Cancelled PTT Ratio Cancelled VBG pH (7.36-7.41) VBG pCO2 (38-50) mmHg VBG pO2 mmHg VBG HCO3 mmol/L VBG O2 Saturation % VBG Base Excess mEq/L Sodium 128 L (136-145) mmol/L Potassium 3.6 (3.5-5.1) mmol/L Chloride 95 L (98-107) mmol/L Carbon Dioxide 27 (21-32) mmol/L Anion Gap 6 (3-11) BUN 8 (6-23) mg/dl Creatinine 0.60 (0.6-1.2) mg/dl Est Cr Clr Drug Dosing 74.9 ml/min Est GFR ( Amer) 106.3 ml/min Est GFR (Non-Af Amer) 91.7 ml/min BUN/Creatinine Ratio 13.3 (10-20) Glucose 128 H (70-99(Fasting)) mg/dl Lactate 1.0 (0.4-2.0) mmol/L Calcium 8.8 (8.6-10.3) mg/dl Magnesium 1.7 (1.7-2.4) mg/dl Total Bilirubin 0.4 (0.2-1.0) mg/dl Direct Bilirubin 0.0 (0-0.2) mg/dl AST 21 (13-39) U/L ALT 13 (7-52) U/L Alkaline Phosphatase 88 (34-104) U/L Troponin I High Sens 13.8 (0-14) pg/ml Total Protein 7.4 (6.0-8.3) gm/dl Albumin 4.2 (3.4-5.0) gm/dl Procalcitonin < 0.05 (0-0.5) ng/ml Adenovirus (PCR) Not Detected (NotDetected) B. pertussis DNA (PCR) Not Detected (NotDetected) B.parapertussis DNA PCR Not Detected (NotDetected) C. pneumoniae DNA (PCR) Not Detected (NotDetected) Coronavirus OC43 (PCR) Not Detected (NotDetected) Coronavirus HKU1 (PCR) Not Detected (NotDetected) Coronavirus 229E (PCR) Not Detected (NotDetected) SARS-CoV-2 (PCR) Not Detected (NotDetected) Coronavirus NL63 (PCR) Not Detected (NotDetected) Human Metapneumovir PCR Not Detected (NotDetected) Influenza Type A (PCR) Not Detected (NotDetected) Influenza Type B (PCR) Not Detected (NotDetected) M. pneumoniae (PCR) Not Detected (NotDetected) Parainfluenza 1 (PCR) Not Detected (NotDetected) Parainfluenza 2 (PCR) Not Detected (NotDetected) Parainfluenza 3 (PCR) Not Detected (NotDetected) Parainfluenza 4 (PCR) Not Detected (NotDetected) RSV (PCR) Not Detected (NotDetected) Entero/Rhino (PCR) Not Detected (NotDetected) Blood Type A Positive Antibody Screen NEGATIVE 08/01/23 Range/Units 12:25 WBC (4.8-10.8) K/ul RBC (4.20-5.40) M/uL Hgb (12.0-16.0) g/dl Hct (37.0-47.0) % MCV (80.0-100.0) fL MCH (25.0-34.0) pg MCHC (32.0-36.0) g/dL RDW Std Deviation (36.4-46.3) fL RDW Coeff of Imani (11.5-14.5) % Plt Count (130-400) K/uL MPV (9.4-12.4) fL Immature Gran % (Auto) % Neut % (Auto) % Lymph % (Auto) % Parmer % (Auto) % Eos % (Auto) % Baso % (Auto) % Neut # (Auto) (1.40-6.50) K/uL Lymph # (Auto) (1.20-3.40) K/uL Parmer # (Auto) (0.11-0.59) K/uL Eos # (Auto) (0.00-0.50) K/uL Baso # (Auto) (0.00-0.20) K/uL Immature Gran # (Auto) (0.01-0.20) K/uL PT INR APTT PTT Ratio VBG pH 7.40 (7.36-7.41) VBG pCO2 42 (38-50) mmHg VBG pO2 30 mmHg VBG HCO3 26 mmol/L VBG O2 Saturation < 60.0 % VBG Base Excess 1.0 mEq/L Sodium (136-145) mmol/L Potassium (3.5-5.1) mmol/L Chloride (98-107) mmol/L Carbon Dioxide (21-32) mmol/L Anion Gap (3-11) BUN (6-23) mg/dl Creatinine (0.6-1.2) mg/dl Est Cr Clr Drug Dosing ml/min Est GFR ( Amer) ml/min Est GFR (Non-Af Amer) ml/min BUN/Creatinine Ratio (10-20) Glucose (70-99(Fasting)) mg/dl Lactate (0.4-2.0) mmol/L Calcium (8.6-10.3) mg/dl Magnesium (1.7-2.4) mg/dl Total Bilirubin (0.2-1.0) mg/dl Direct Bilirubin (0-0.2) mg/dl AST (13-39) U/L ALT (7-52) U/L Alkaline Phosphatase (34-104) U/L Troponin I High Sens (0-14) pg/ml Total Protein (6.0-8.3) gm/dl Albumin (3.4-5.0) gm/dl Procalcitonin (0-0.5) ng/ml Adenovirus (PCR) (NotDetected) B. pertussis DNA (PCR) (NotDetected) B.parapertussis DNA PCR (NotDetected) C. pneumoniae DNA (PCR) (NotDetected) Coronavirus OC43 (PCR) (NotDetected) Coronavirus HKU1 (PCR) (NotDetected) Coronavirus 229E (PCR) (NotDetected) SARS-CoV-2 (PCR) (NotDetected) Coronavirus NL63 (PCR) (NotDetected) Human Metapneumovir PCR (NotDetected) Influenza Type A (PCR) (NotDetected) Influenza Type B (PCR) (NotDetected) M. pneumoniae (PCR) (NotDetected) Parainfluenza 1 (PCR) (NotDetected) Parainfluenza 2 (PCR) (NotDetected) Parainfluenza 3 (PCR) (NotDetected) Parainfluenza 4 (PCR) (NotDetected) RSV (PCR) (NotDetected) Entero/Rhino (PCR) (NotDetected) Blood Type Antibody Screen Imaging Data Attestation: I personally reviewed and interpreted this imaging study as follows: My Impression: Chest x-ray: Right middle lobe infiltrate. Radiologist's Impression: Chest X-Ray 08/01/23 11:36 XR chest 1V portable HISTORY: 72 years-old Female Sepsis acute sepsis COMPARISON: 02/25/2023 TECHNIQUE: AP view of the chest FINDINGS: Cardiac silhouette is enlarged. Left subclavian pacer. Atherosclerosis of the aorta. No pneumothorax, pleural effusion or overt pulmonary edema. Patchy right basilar airspace opacities. Bones appear grossly intact. IMPRESSION: Right basilar airspace opacities are suggestive of pneumonia. Follow-up imaging after treatment course is recommended. ACT 112: Negative or not required by law. The above report was generated using voice recognition software. It may contain grammatical, syntax or spelling errors. Electronically signed by: Tereso Valle M.D. 08/01/2023 12:06 PM ECG Data Attestation: I personally reviewed and interpreted this ECG as follows: Interpretation: atrial fibrillation with rate 67. QRS and QTc intervals within normal limits. No ST elevation or ST depression. [facility] Narrative 1120: The patient was evaluated in room C3. A complete history and physical exam was performed Cardiac monitoring: An order was placed for continuous cardiac monitoring. The monitor shows a rate of 70 with atrail fib rhythm interpreted by tx 1335: Vital signs stable. Labs are significant for a sodium of 128. BioFire, procalcitonin, white blood cell, lactic acid within normal limits. Chest x-ray does show new infiltrate in the right middle lobe. Patient has a high PSI score, patient will be treated with Rocephin and azithromycin [facility] PSI/PORT Score: Pneumonia Severity Index for CAP from [email or web address] on 08/01/2023 All calculations should be rechecked by clinician prior to use RESULT SUMMARY: 111 points Risk Class IV, 8.2-9.3% mortality. Hospitalization recommended based on risk. INPUTS: Age > 71 years Sex > -10 = Female half-way resident > 0 = No Neoplastic disease > 30 = Yes Liver disease history > 0 = No CHF history > 0 = No Cerebrovascular disease history > 0 = No Renal disease history > 0 = No Altered mental status > 0 = No Respiratory rate >=0 breaths/min > 0 = No Systolic blood pressure <90 mmHg > 0 = No Temperature <35&deg;C (95&deg;F) or >39.9&deg;C (103.8&deg;F) > 0 = No Pulse >=25 beats/min > 0 = No pH <7.35 > 0 = No BUN >=0 mg/dL or >=1 mmol/L > 0 = No Sodium <130 mmol/L > 20 = Yes Glucose >=50 mg/dL or >=4 mmol/L > 0 = No Hematocrit <30% > 0 = No Partial pressure of oxygen <60 mmHg or <8 kPa > 0 = No Pleural effusion on x-ray > 0 = No Impression & Plan Pneumonia, Hyponatremia Discharge Plan Visit Data Chief Complaint: Shortness of Breath/Dyspnea Stated Complaint: REF BY , FEVER, SOB ED Provider: David Redd Discharge Problem: Pneumonia, Hyponatremia Patient Disposition: Admitted As Inpatient Forms Stand Alone Forms: My [facility] Prescriptions Prescriptions: No Action potassium chloride 10 mEq tablet extended release 10 meq PO 3XWK Qty: 60 3RF Rx Instructions: TAKE THIS MEDICATION EVERY FRIDAY,FRIDAY AND FRIDAY PER PT SHE ONLY TAKES ONCE A WEEK ipratropium-albuterol 0.5 mg-3 mg(2.5 mg base)/3 mL solution for nebulization 3 ml INHALATION QID PRN (Reason: Shortness Of Breath Or Wheezing) Qty: 90 0RF flecainide 100 mg tablet 100 mg PO Q12H Qty: 180 3RF Evenity 210mg/2.34mL ( 105mg/1.17mLx2) syringe 210 mg subcut ONCE Qty: 2.34 11RF Rx Instructions: inject monthly for 12 monthly doses Buy and Bill dicyclomine 10 mg capsule 10 mg PO TID PRN (Reason: IBS with diarrhea) Qty: 90 2RF sertraline 50 mg tablet 50 mg PO DAILY Qty: 90 1RF zolpidem 5 mg tablet 5 mg PO HS PRN (Reason: insomnia) Qty: 30 0RF turmeric root extract 500 mg capsule 1,000 mg PO DAILY sodium chloride 7 % solution for nebulization 1 inh inhalation BID PRN (Reason: Unknown) lorazepam 0.5 mg tablet 0.5 mg PO Q8H PRN (Reason: anxiety) Qty: 20 1RF albuterol sulfate 90 mcg/actuation HFA aerosol inhaler 2 inh inhalation Q6H PRN (Reason: shortness of breath or wheezing) Qty: 8.5 3RF cetirizine [Zyrtec] 10 mg Tablet 10 mg PO QPM prochlorperazine maleate 10 mg tablet 10 mg PO Q6H PRN (Reason: Nausea) vitamin B complex Capsule 1 cap PO QAM Rx Instructions: 50 mg Raw Green Superfoods Caps 500 mg capsule 2,000 mg PO QDL Gammagard Liquid 10 % Solution 25 g IV MONTHLY Patient Comments: gets an infusion every 6 wks Probiotic 10 billion cell Capsule 10,000 mmu cells PO QAM Vitamin C (ascorbate calcium) 814 mg/gram powder 400 mg PO DAILY Calcium Magnesium + D 400-167-133 mg-mg-unit tablet 1 tab PO TIDM furosemide 20 mg tablet 20 mg PO QAM metoprolol succinate 50 mg tablet extended release 24 hr 100 mg PO QAM Rx Instructions: TAKE 2 TABLETS BY MOUTH EVERY DAY cholecalciferol (vitamin D3) 50 mcg (2,000 unit) capsule 50 mcg PO QAM Xarelto 20 mg tablet 20 mg PO PM Rx Instructions: must administer with evening meal One-A-Day Womens Formula 18 mg iron-400 mcg-500 mg Tablet 1 tab PO DAILY acetaminophen 325 mg Tablet 650 mg PO Q4H PRN (Reason: pain) Qty: 30 0RF Referrals Referrals: Holli Wheeler DO [Primary Care Provider] - Discharge Problem: Pneumonia Qualifiers: Pneumonia type: due to unspecified organism Laterality: right Lung location: m iddle lobe of lung Qualified Code(s): J18.9 - Pneumonia, unspecified organism
[2023-08-01] MEDS: MAGNESIUM SULFATE / D5W 1 GM/100 ML BAG IV SCH ×2 (14:40→15:15)
[2023-08-01] MEDS ORDERED: PROCHLORPERAZINE MALEATE 10 MG TAB PO PRN (15:43)
[2023-08-01] MEDS ORDERED: DICYCLOMINE HCL 10 MG CAP PO PRN (15:43)
[2023-08-01 16:06] LABS: INR 1.1 (0.9-1.1); Partial Thromboplastin Ratio 1.5
[2023-08-01] MEDS: ALBUT/IPRATROP 3MG/0.5MG NEB 3 ML VIAL NEB SCH ×2 (16:18→19:34)
[2023-08-01 19:21] LABS: Partial Thromboplastin Time 40.9 Seconds (21.0-31.0)
--- NOTE | 2023-08-01 20:42 | Electrocardiogram Report ---
Test Reason : Blood Pressure : / mmHG Vent. Rate : 067 BPM Atrial Rate : 000 BPM P-R Int : 000 ms QRS Dur : 092 ms QT Int : 380 ms P-R-T Axes : 000 -33 -07 degrees QTc Int : 401 ms Sinus rhythm with demand atrial pacing Left axis deviation Nonspecific T wave abnormality Abnormal ECG Confirmed by Dhaval Miller ([id number]) on 08/01/2023 8:42:40 PM Referred By: Holli Wheeler Confirmed By:Jeff Miller
[2023-08-01 21:40] LABS: Appearance Urine Clear (Clear); Bacteria Urine Automated Negative (Negative); Bilirubin Urine Negative (Negative); Blood Urine 2+ (Negative); Color Urine Yellow; Epithelial Cell Urine Auto >30 /lpf (0-5); Glucose Urine UA Trace (Negative); Ketones Urine 2+ (Negative); Leukocyte Esterase Urine Negative (Negative); Nitrite Urine Negative (Negative); Protein Urine 2+ (Negative); RBC Urine Automated >30 /hpf (0-4); Specific Gravity Urine 1.017 (1.000-1.030); Urobilinogen Urine Negative (Negative); pH Urine 6.5 (4.5-7.5)
[2023-08-01] MEDS: ZOLPIDEM TARTRATE 5 MG TAB PO PRN (21:56)
[2023-08-01] MEDS: RIVAROXABAN 20 MG TAB PO SCH (22:00)
[2023-08-01] MEDS: FLECAINIDE ACETATE 100 MG TABLET PO SCH (22:04)
[2023-08-01] MEDS: guaiFENesin/CODEINE 100MG/10MG 5ML UDC PO PRN (22:04)
[2023-08-01] MEDS: ACETAMINOPHEN 500 MG TAB PO PRN (22:10)
[2023-08-02] MEDS ORDERED: Nursing to Pharmacy Communication SCH (06:30)
[2023-08-02] MEDS: ACETAMINOPHEN 500 MG TAB PO PRN ×2 (06:47→21:47)
[2023-08-02] MEDS: ALBUT/IPRATROP 3MG/0.5MG NEB 3 ML VIAL NEB SCH ×4 (07:20→19:13)
[2023-08-02] MEDS ORDERED: hydrALAZINE HCL 20 MG/ML VIAL IV ONE (07:24)
[2023-08-02 07:42] LABS: Basophils # (auto) 0.01 K/uL (0.00-0.20); Basophils % (auto) 0.1 %; Hematocrit (blood only) 34.3 % (37.0-47.0); Hemoglobin 11.8 g/dl (12.0-16.0); Immature Granulocytes # (auto) 0.03 K/uL (0.01-0.20); Immature Granulocytes % (auto) 0.4 %; Lymphocytes # (auto) 0.59 K/uL (1.20-3.40); Lymphocytes % (auto) 8.5 %; Mean Corpuscular Hemoglobin 31.7 pg (25.0-34.0); Mean Corpuscular Hgb Conc 34.4 g/dL (32.0-36.0); Mean Corpuscular Volume 92.2 fL (80.0-100.0); Mean Platelet Volume 10.4 fL (9.4-12.4); Monocytes # (auto) 0.64 K/uL (0.11-0.59); Monocytes % (auto) 9.3 %; Neutrophils # (auto) 5.64 K/uL (1.40-6.50); Neutrophils % (auto) 81.7 %; Platelet Count 156 K/uL (130-400); RDW Coefficient of Variation 13.2 % (11.5-14.5); RDW Standard Deviation 44.5 fL (36.4-46.3); Red Blood Count 3.72 M/uL (4.20-5.40); White Blood Count 6.91 K/ul (4.8-10.8)
[2023-08-02] MEDS: FLECAINIDE ACETATE 100 MG TABLET PO SCH ×2 (08:15→20:15)
[2023-08-02] MEDS: VITAMIN B COMPLEX TAB PO SCH (08:15)
[2023-08-02] MEDS: SERTRALINE HCL 50 MG TABLET PO SCH (08:15)
[2023-08-02 08:22] LABS: BUN Creatinine Ratio 14.3 (10-20); Calcium 8.8 mg/dl (8.6-10.3); Creatinine Clr Calc Pharmacy 92.5 ml/min; Est GFR (African American) 108.7 ml/min; Est GFR (Non-African American) 93.8 ml/min; Magnesium 2.2 mg/dl (1.7-2.4); Potassium 3.3 mmol/L (3.5-5.1)
[2023-08-02] MEDS ORDERED: METOPROLOL SUCC 50MG EXT REL TAB PO SCH (09:00)
[2023-08-02] MEDS ORDERED: IBUPROFEN 200 MG TAB PO STA (09:39)
[2023-08-02] MEDS ORDERED: POTASSIUM CHLORIDE CRTAB 20 MEQ TABCR PO STA (12:44)
--- NOTE | 2023-08-02 12:44 | Hospitalist Progress Note ---
Date of Service August 02, 2023 Assessment & Plan (1) Acute respiratory failure with hypoxia: Plan: -Presented with a week of progressive SOB, cough, and right chest discomfort -Found to have a right basilar opacity consistent with pneumonia -Now saturating 95% on 2 L -No leukocytosis, but this could be due to her CLL, full resp biofire is negative -At this time it appears that her AHRF with hypoxia is multifactorial due to CAP likely exacerbating her asthma as well Started on IV ceftriaxone and azithromycin. We will continue that. Continue DuoNebs. Patient seems to be feeling better with DuoNeb treatments. -S/P ceftriaxone, azithromycin, 1L NSS, and a duoneb treatment in the ED -Will continue with Ceftriaxone and Azithromycin for now to cover CAP -Will try and avoid systemic steroids with her hx of VALROIE for now, but if she is still in respiratory distress after will start -If patient is not improving after treatment today would consult Pulmonology to follow -Incentive spirometry, flutter therapy, scheduled DuoNebs, prn Guaifenesin/Codeine for cough -PRN O2 to keep SpO2 at or above 94% -Home xarelto for DVT PPX -HH diet with 2gm sodium and 1800 mL fluid restriction -AM CBC, BMP, Mag, PT/INR 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 If not improving, will get pulmonology involved. Admission and Anticipated Discharge Date Admission Date: August 01, 2023 Subjective Patient says that she feels better. She is breathing better now that she is able to complete sentences now Review of Systems Review of Systems: All systems reviewed & are unremarkable except as noted in Subjective Physical Exam Physical Exam: General: Awake, conversant Heart: S1, S2/regular rate and rhythm, no murmur rubs or gallops Lungs: No wheezes heard. Bilateral crackles heard.. Normal effort Abdomen: Soft/nontender/nondistended. No hepatosplenomegaly Extremities: No clubbing/cyanosis. No edema Behavior: Appropriate, cooperative Results & Data Results & Data Vital Signs (Past 12 Hours) Vital Signs Temp Pulse Pulse Resp BP Pulse Ox O2 Del Method 08/02/23 11:45 36.6 C 68 16 113/55 L 99 Nebulizer 08/02/23 10:59 78 18 95 Nasal Cannula 08/02/23 09:01 37.7 C H 84 18 110/66 96 Nasal Cannula 08/02/23 07:26 36.9 C 79 16 175/62 H 100 Nebulizer 08/02/23 07:20 77 18 97 Nasal Cannula 08/02/23 06:45 92 Nasal Cannula 08/02/23 03:55 36.4 C L 60 22 146/78 H 98 Nasal Cannula O2 Flow Rate 08/02/23 11:45 08/02/23 10:59 2 08/02/23 09:01 3 08/02/23 07:26 08/02/23 07:20 3 08/02/23 06:45 3 08/02/23 03:55 2 Laboratory Results Abnormal lab results 08/01/23 08/01/23 08/01/23 Range/Units 12:13 14:54 Unknown RBC (4.20-5.40) M/uL Hgb (12.0-16.0) g/dl Hct (37.0-47.0) % Lymph # (Auto) (1.20-3.40) K/uL Gove # (Auto) (0.11-0.59) K/uL APTT 40.9 H* (21.0-31.0) Seconds Sodium 128 L (136-145) mmol/L Potassium (3.5-5.1) mmol/L Chloride 95 L (98-107) mmol/L Creatinine (0.6-1.2) mg/dl Glucose 128 H (70-99(Fasting)) mg/dl Urine Protein 2+ H (Negative) Urine Glucose (UA) Trace H (Negative) Urine Ketones 2+ H (Negative) Urine Blood 2+ H (Negative) Urine RBC (Auto) >30 H (0-4) /hpf U Epithel Cells (Auto) >30 H (0-5) /lpf 08/02/23 Range/Units 06:44 RBC 3.72 L (4.20-5.40) M/uL Hgb 11.8 L (12.0-16.0) g/dl Hct 34.3 L (37.0-47.0) % Lymph # (Auto) 0.59 L (1.20-3.40) K/uL Gove # (Auto) 0.64 H (0.11-0.59) K/uL APTT (21.0-31.0) Seconds Sodium 130 L (136-145) mmol/L Potassium 3.3 L (3.5-5.1) mmol/L Chloride 95 L (98-107) mmol/L Creatinine 0.56 L (0.6-1.2) mg/dl Glucose 124 H (70-99(Fasting)) mg/dl Urine Protein (Negative) Urine Glucose (UA) (Negative) Urine Ketones (Negative) Urine Blood (Negative) Urine RBC (Auto) (0-4) /hpf U Epithel Cells (Auto) (0-5) /lpf PG Care Time/CCT Total # of Minutes Spent Total Time Spent with Patient: Total time spent is greater than 50% in coordination of care (as documented) at patient's floor/unit and/or counseling patient: Coding Level of Care Code 30694 SUB INP/OBS CARE 2/35MIN Diagnoses Acute respiratory failure with hypoxia J96.01 Pneumonia J18.9 Laterality: right Lung location: middle lobe of lung Pneumonia type: due to unspecified organism Asthma exacerbation J45.901 Chest pain R07.9 Hyponatremia E87.1 Essential hypertension I10 Hypertension type: essential hypertension CLL (chronic lymphocytic leukemia) C91.90 Paroxysmal atrial fibrillation I48.0 (2) Pneumonia Laterality: right Lung location: middle lobe of lung Pneumonia type: due to unspecified organism Qualified Code(s): J18.9 - Pneumonia, unspecified organism (6) Hypertension Hypertension type: essential hypertension Qualified Code(s): I10 - Essential (primary) hypertension
[2023-08-02] MEDS ORDERED: METOPROLOL TARTRATE 1 MG/ML VIAL IV STA (12:52)
[2023-08-02] MEDS: cefTRIAXone SODIUM 2,000 MG in DEXTROSE 5 % MINI-B 50 ML IV SCH (13:02)
[2023-08-02] MEDS: AZITHROMYCIN 500 MG in DEXTROSE 5% 250 ML IV SCH (13:38)
[2023-08-02] MEDS: METOPROLOL SUCC 50MG EXT REL TAB PO SCH (20:15)
[2023-08-02] MEDS: guaiFENesin/CODEINE 100MG/10MG 5ML UDC PO PRN (20:15)
[2023-08-02] MEDS: RIVAROXABAN 20 MG TAB PO SCH (20:16)
[2023-08-02] MEDS: ZOLPIDEM TARTRATE 5 MG TAB PO PRN (21:48)
[2023-08-03] MEDS: ALBUT/IPRATROP 3MG/0.5MG NEB 3 ML VIAL NEB SCH ×4 (07:01→20:25)
[2023-08-03 07:06] LABS: Basophils # (auto) 0.01 K/uL (0.00-0.20); Basophils % (auto) 0.2 %; Eosinophils # (auto) 0.03 K/uL (0.00-0.50); Eosinophils % (auto) 0.7 %; Hematocrit (blood only) 30.8 % (37.0-47.0); Hemoglobin 10.6 g/dl (12.0-16.0); Lymphocytes # (auto) 0.41 K/uL (1.20-3.40); Lymphocytes % (auto) 9.8 %; Mean Corpuscular Hemoglobin 31.1 pg (25.0-34.0); Mean Corpuscular Hgb Conc 34.4 g/dL (32.0-36.0); Mean Corpuscular Volume 90.3 fL (80.0-100.0); Mean Platelet Volume 10.4 fL (9.4-12.4); Monocytes # (auto) 0.44 K/uL (0.11-0.59); Monocytes % (auto) 10.6 %; Neutrophils # (auto) 3.28 K/uL (1.40-6.50); Neutrophils % (auto) 78.7 %; Platelet Count 156 K/uL (130-400); RDW Coefficient of Variation 13.1 % (11.5-14.5); RDW Standard Deviation 43.2 fL (36.4-46.3); Red Blood Count 3.41 M/uL (4.20-5.40); White Blood Count 4.17 K/ul (4.8-10.8)
[2023-08-03] MEDS: ACETAMINOPHEN 500 MG TAB PO PRN ×3 (07:20→23:06)
[2023-08-03 07:27] LABS: Calcium 8.4 mg/dl (8.6-10.3); Creatinine Clr Calc Pharmacy 103.2 ml/min; Est GFR (African American) 112.9 ml/min; Est GFR (Non-African American) 97.4 ml/min; Magnesium 2.1 mg/dl (1.7-2.4); Potassium 3.7 mmol/L (3.5-5.1)
[2023-08-03] MEDS: VITAMIN B COMPLEX TAB PO SCH (08:16)
[2023-08-03] MEDS: FLECAINIDE ACETATE 100 MG TABLET PO SCH ×2 (08:16→20:10)
[2023-08-03] MEDS: SERTRALINE HCL 50 MG TABLET PO SCH (08:16)
[2023-08-03] MEDS ORDERED: SODIUM CHLORIDE 0.65% NA SOLN 45 ML (OCEAN) ONE (08:18)
--- NOTE | 2023-08-03 14:20 | Hospitalist Progress Note ---
Date of Service August 03, 2023 Assessment & Plan (1) Acute respiratory failure with hypoxia: Plan: -Presented with a week of progressive SOB, cough, and right chest discomfort -Found to have a right basilar opacity consistent with pneumonia -No leukocytosis, but this could be due to her CLL, full resp biofire is negative -At this time it appears that her AHRF with hypoxia is multifactorial due to CAP likely exacerbating her asthma as well -Will continue with Ceftriaxone and Azithromycin for now to cover CAP -Will try and avoid systemic steroids with her hx of VALORIE for now, but if she is still in respiratory distress after will start Clinically improving Continue current treatment IV antibiotics and DuoNeb treatments. 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 Breathing better. Coughing less. Review of Systems Review of Systems: All systems reviewed & are unremarkable except as noted in Subjective Physical Exam Physical Exam: General: Awake, conversant Heart: S1, S2/regular rate and rhythm, no murmur rubs or gallops Lungs: No wheezes heard. Bilateral crackles heard.. Normal effort Abdomen: Soft/nontender/nondistended. No hepatosplenomegaly Extremities: No clubbing/cyanosis. No edema Behavior: Appropriate, cooperative Results & Data Results & Data Vital Signs (Past 12 Hours) Vital Signs Temp Pulse Pulse Pulse Resp BP Pulse Ox 08/03/23 11:21 37.1 C 61 21 127/77 96 08/03/23 07:40 36.9 C 68 19 147/77 H 97 08/03/23 07:28 08/03/23 07:08 62 08/03/23 07:03 74 18 98 08/03/23 03:31 36.8 C 60 18 155/84 H 98 O2 Del Method O2 Flow Rate 08/03/23 11:21 Nasal Cannula 2 08/03/23 07:40 Room Air 08/03/23 07:28 Nasal Cannula 2 08/03/23 07:08 08/03/23 07:03 Room Air 08/03/23 03:31 Nasal Cannula 3 Laboratory Results Abnormal lab results 08/03/23 Range/Units 06:30 WBC 4.17 L (4.8-10.8) K/ul RBC 3.41 L (4.20-5.40) M/uL Hgb 10.6 L (12.0-16.0) g/dl Hct 30.8 L (37.0-47.0) % Lymph # (Auto) 0.41 L (1.20-3.40) K/uL Immature Gran # (Auto) 0.00 L (0.01-0.20) K/uL Sodium 128 L (136-145) mmol/L Chloride 95 L (98-107) mmol/L Creatinine 0.50 L (0.6-1.2) mg/dl Calcium 8.4 L (8.6-10.3) mg/dl PG Care Time/CCT Total # of Minutes Spent Total Time Spent with Patient: Total time spent is greater than 50% in coordination of care (as documented) at patient's floor/unit and/or counseling patient: Coding Level of Care Code 69784 SUB INP/OBS CARE 2/35MIN Diagnoses Acute respiratory failure with hypoxia J96.01 Pneumonia J18.9 Laterality: right Lung location: middle lobe of lung Pneumonia type: due to unspecified organism Asthma exacerbation J45.901 Chest pain R07.9 Hyponatremia E87.1 Essential hypertension I10 Hypertension type: essential hypertension CLL (chronic lymphocytic leukemia) C91.90 Paroxysmal atrial fibrillation I48.0 (2) Pneumonia Laterality: right Lung location: middle lobe of lung Pneumonia type: due to unspecified organism Qualified Code(s): J18.9 - Pneumonia, unspecified organism (6) Hypertension Hypertension type: essential hypertension Qualified Code(s): I10 - Essential (primary) hypertension
[2023-08-03] MEDS: guaiFENesin/CODEINE 100MG/10MG 5ML UDC PO PRN ×2 (14:22→23:06)
[2023-08-03] MEDS: cefTRIAXone SODIUM 2,000 MG in DEXTROSE 5 % MINI-B 50 ML IV SCH (14:23)
[2023-08-03] MEDS: AZITHROMYCIN 500 MG in DEXTROSE 5% 250 ML IV SCH (15:14)
[2023-08-03] MEDS: RIVAROXABAN 20 MG TAB PO SCH (20:10)
[2023-08-03] MEDS: METOPROLOL SUCC 50MG EXT REL TAB PO SCH (20:11)
[2023-08-03] MEDS: ZOLPIDEM TARTRATE 5 MG TAB PO PRN (21:34)
[2023-08-04] MEDS: BENZONATATE 100 MG CAPSULE PO PRN ×3 (00:44→22:10)
[2023-08-04 06:46] LABS: Basophils # (auto) 0.02 K/uL (0.00-0.20); Basophils % (auto) 0.7 %; Eosinophils # (auto) 0.03 K/uL (0.00-0.50); Eosinophils % (auto) 1.1 %; Hematocrit (blood only) 29.3 % (37.0-47.0); Hemoglobin 9.9 g/dl (12.0-16.0); Immature Granulocytes # (auto) 0.01 K/uL (0.01-0.20); Immature Granulocytes % (auto) 0.4 %; Lymphocytes % (auto) 17.5 %; Mean Corpuscular Hemoglobin 31.1 pg (25.0-34.0); Mean Corpuscular Hgb Conc 33.8 g/dL (32.0-36.0); Mean Corpuscular Volume 92.1 fL (80.0-100.0); Mean Platelet Volume 10.3 fL (9.4-12.4); Monocytes # (auto) 0.46 K/uL (0.11-0.59); Monocytes % (auto) 16.1 %; Neutrophils # (auto) 1.83 K/uL (1.40-6.50); Neutrophils % (auto) 64.2 %; Platelet Count 178 K/uL (130-400); RDW Coefficient of Variation 13.2 % (11.5-14.5); RDW Standard Deviation 44.7 fL (36.4-46.3); Red Blood Count 3.18 M/uL (4.20-5.40); White Blood Count 2.85 K/ul (4.8-10.8)
[2023-08-04 07:04] LABS: Calcium 8.5 mg/dl (8.6-10.3); Creatinine Clr Calc Pharmacy 98.1 ml/min; Est GFR (African American) 110.7 ml/min; Est GFR (Non-African American) 95.5 ml/min; Potassium 3.9 mmol/L (3.5-5.1)
[2023-08-04] MEDS: ALBUT/IPRATROP 3MG/0.5MG NEB 3 ML VIAL NEB SCH ×4 (07:14→20:14)
[2023-08-04] MEDS: VITAMIN B COMPLEX TAB PO SCH (08:41)
[2023-08-04] MEDS: SERTRALINE HCL 50 MG TABLET PO SCH (08:41)
[2023-08-04] MEDS: FLECAINIDE ACETATE 100 MG TABLET PO SCH ×2 (08:41→20:06)
[2023-08-04] MEDS: ACETAMINOPHEN 500 MG TAB PO PRN (08:44)
[2023-08-04] MEDS: guaiFENesin/CODEINE 100MG/10MG 5ML UDC PO PRN ×2 (08:44→22:10)
--- NOTE | 2023-08-04 13:38 | Hospitalist Progress Note ---
Date of Service August 04, 2023 Assessment & Plan (1) Acute respiratory failure with hypoxia: Plan: -Presented with a week of progressive SOB, cough, and right chest discomfort -Found to have a right basilar opacity consistent with pneumonia -No leukocytosis, but this could be due to her CLL, full resp biofire is negative -At this time it appears that her AHRF with hypoxia is multifactorial due to CAP likely exacerbating her asthma as well -Will continue with Ceftriaxone and Azithromycin for now to cover CAP Can be switched to p.o. antibiotics soon Clinically improving. Not requiring oxygen today for the first time. Continue current treatment IV antibiotics and DuoNeb treatments. 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 -Sodium is 129 today, baseline is 129-130 -Likely a combination of SIADH and poor oral intake over the past week -Patient appears slightly dry on exam -Monitor am Sodium level (6) Hypertension: Plan: -Stable -Continue metoprolol but will hold lasix as she appears slightly dry on exam (7) CLL (chronic lymphocytic leukemia): Plan: -Continue to follow with Heme/Onc (8) Paroxysmal atrial fibrillation: Plan: -Stable -Continue metoprolol, flecainide, and Xarelto Plan Likely discharge in a day or 2 Admission and Anticipated Discharge Date Admission Date: August 01, 2023 Subjective patient seems to be doing better overall. Breathing better. Review of Systems Review of Systems: All systems reviewed & are unremarkable except as noted in Subjective Physical Exam Physical Exam: General: Awake, conversant Heart: S1, S2/regular rate and rhythm, no murmur rubs or gallops Lungs: No wheezes heard. Bilateral crackles heard.. Normal effort Abdomen: Soft/nontender/nondistended. No hepatosplenomegaly Extremities: No clubbing/cyanosis. No edema Behavior: Appropriate, cooperative Results & Data Results & Data Vital Signs (Past 12 Hours) Vital Signs Temp Pulse Pulse Pulse Resp BP BP 08/04/23 11:26 70 16 08/04/23 11:07 36.7 C 62 19 148/82 H 08/04/23 08:07 37.0 C 68 19 171/93 H 08/04/23 07:44 08/04/23 07:15 65 16 08/04/23 06:47 60 08/04/23 03:07 36.4 C L 58 L 20 143/82 H Pulse Ox O2 Del Method O2 Flow Rate 08/04/23 11:26 97 Room Air 08/04/23 11:07 92 Room Air 08/04/23 08:07 96 Nasal Cannula 2 08/04/23 07:44 Room Air 08/04/23 07:15 99 Nasal Cannula 2 08/04/23 06:47 08/04/23 03:07 99 Nasal Cannula 2 PG Care Time/CCT Total # of Minutes Spent Total Time Spent with Patient: Total time spent is greater than 50% in coordination of care (as documented) at patient's floor/unit and/or counseling patient: Coding Level of Care Code 78741 SUB INP/OBS CARE 2/35MIN Diagnoses Acute respiratory failure with hypoxia J96.01 Pneumonia J18.9 Laterality: right Lung location: middle lobe of lung Pneumonia type: due to unspecified organism Asthma exacerbation J45.901 Chest pain R07.9 Hyponatremia E87.1 Essential hypertension I10 Hypertension type: essential hypertension CLL (chronic lymphocytic leukemia) C91.90 Paroxysmal atrial fibrillation I48.0 (2) Pneumonia Laterality: right Lung location: middle lobe of lung Pneumonia type: due to unspecified organism Qualified Code(s): J18.9 - Pneumonia, unspecified organism (6) Hypertension Hypertension type: essential hypertension Qualified Code(s): I10 - Essential (primary) hypertension
[2023-08-04] MEDS: cefTRIAXone SODIUM 2,000 MG in DEXTROSE 5 % MINI-B 50 ML IV SCH (15:04)
[2023-08-04] MEDS: AZITHROMYCIN 500 MG in DEXTROSE 5% 250 ML IV SCH (15:53)
[2023-08-04] MEDS: RIVAROXABAN 20 MG TAB PO SCH (20:06)
[2023-08-04] MEDS: METOPROLOL SUCC 50MG EXT REL TAB PO SCH (20:07)
[2023-08-04] MEDS: LORazepam 0.5 MG TAB PO PRN (22:10)
[2023-08-05] MEDS: LORazepam 0.5 MG TAB PO PRN ×2 (06:36→22:13)
[2023-08-05] MEDS: BENZONATATE 100 MG CAPSULE PO PRN ×2 (06:38→20:48)
[2023-08-05] MEDS: ALBUT/IPRATROP 3MG/0.5MG NEB 3 ML VIAL NEB SCH ×3 (07:23→14:36)
[2023-08-05] MEDS ORDERED: COUGH DROP (SUGAR FREE) LOZ 24 LOZ/1 BOX BUCCAL STA (08:32)
[2023-08-05] MEDS ORDERED: COUGH DROP (SUGAR FREE) LOZ 24 LOZ/1 BOX BUCCAL ONE (08:35)
[2023-08-05] MEDS: VITAMIN B COMPLEX TAB PO SCH (08:36)
[2023-08-05] MEDS: SERTRALINE HCL 50 MG TABLET PO SCH (08:37)
[2023-08-05] MEDS: FLECAINIDE ACETATE 100 MG TABLET PO SCH ×2 (08:37→20:48)
[2023-08-05] MEDS: ACETAMINOPHEN 500 MG TAB PO PRN (13:36)
[2023-08-05] MEDS: cefTRIAXone SODIUM 2,000 MG in DEXTROSE 5 % MINI-B 50 ML IV SCH (13:41)
[2023-08-05] MEDS: AZITHROMYCIN 500 MG in DEXTROSE 5% 250 ML IV SCH (15:49)
[2023-08-05] MEDS ORDERED: ALBUT/IPRATROP 3MG/0.5MG NEB 3 ML VIAL NEB PRN (18:10)
--- NOTE | 2023-08-05 18:11 | Hospitalist Progress Note ---
Date of Service August 05, 2023 Assessment & Plan (1) Acute respiratory failure with hypoxia: Plan: -Presented with a week of progressive SOB, cough, and right chest discomfort -Found to have a right basilar opacity consistent with pneumonia -No leukocytosis, but this could be due to her CLL, full resp biofire is negative -Possibly multifactorial due to asthma/COPD, currently on room air improving, stop Rocephin, stop Zithromax, started on Augmentin, pending placement 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 -Sodium is 129 08/04 baseline is 129-130 , BMP tomorrow -Likely a combination of SIADH and poor oral intake over the past week -Patient appears slightly dry on exam -Monitor am Sodium level (6) Hypertension: Plan: -Stable -Continue metoprolol but will hold lasix as she appears slightly dry on exam (7) CLL (chronic lymphocytic leukemia): Plan: -Continue to follow with Heme/Onc (8) Paroxysmal atrial fibrillation: Plan: -Stable -Continue metoprolol, flecainide, and Xarelto Plan Likely discharge in a day or 2 Admission and Anticipated Discharge Date Admission Date: August 01, 2023 Subjective patient seems to be doing better overall. Breathing better. Physical Exam Physical Exam: General: Awake, conversant Heart: S1, S2/regular rate and rhythm, no murmur rubs or gallops Lungs: No wheezes heard. Bilateral crackles heard.. Normal effort Abdomen: Soft/nontender/nondistended. No hepatosplenomegaly Extremities: No clubbing/cyanosis. No edema Behavior: Appropriate, cooperative Results & Data Results & Data Vital Signs (Past 12 Hours) Vital Signs Temp Pulse Pulse Pulse Resp BP BP 08/05/23 16:04 36.7 C 71 16 119/76 08/05/23 15:56 62 08/05/23 14:37 87 18 08/05/23 11:36 36.9 C 64 19 132/72 08/05/23 10:20 84 18 08/05/23 10:14 60 08/05/23 10:09 08/05/23 07:47 36.5 C 68 18 165/84 H 08/05/23 07:24 92 H 18 Pulse Ox O2 Del Method O2 Flow Rate 08/05/23 16:04 92 Room Air 08/05/23 15:56 08/05/23 14:37 95 Room Air 08/05/23 11:36 94 Room Air 08/05/23 10:20 94 Room Air 08/05/23 10:14 08/05/23 10:09 Nasal Cannula 2 08/05/23 07:47 99 Nasal Cannula 2 08/05/23 07:24 97 Nasal Cannula 2 PG Care Time/CCT Total # of Minutes Spent Total Time Spent with Patient: Total time spent is greater than 50% in coordination of care (as documented) at patient's floor/unit and/or counseling patient: Coding Level of Care Code 47117 SUB INP/OBS CARE 2/35MIN Diagnoses Acute respiratory failure with hypoxia J96.01 Pneumonia J18.9 Laterality: right Lung location: middle lobe of lung Pneumonia type: due to unspecified organism Asthma exacerbation J45.901 Chest pain R07.9 Hyponatremia E87.1 Essential hypertension I10 Hypertension type: essential hypertension CLL (chronic lymphocytic leukemia) C91.90 Paroxysmal atrial fibrillation I48.0 (2) Pneumonia Laterality: right Lung location: middle lobe of lung Pneumonia type: due to unspecified organism Qualified Code(s): J18.9 - Pneumonia, unspecified organism (6) Hypertension Hypertension type: essential hypertension Qualified Code(s): I10 - Essential (primary) hypertension
[2023-08-05] MEDS: METOPROLOL SUCC 50MG EXT REL TAB PO SCH (20:48)
[2023-08-05] MEDS: RIVAROXABAN 20 MG TAB PO SCH (20:49)
[2023-08-05] MEDS: guaiFENesin/CODEINE 100MG/10MG 5ML UDC PO PRN (22:12)
[2023-08-06 06:41] LABS: Calcium 8.3 mg/dl (8.6-10.3); Potassium 3.9 mmol/L (3.5-5.1)
[2023-08-06 06:47] LABS: BUN Creatinine Ratio 22.2 (10-20); Creatinine Clr Calc Pharmacy 112.6 ml/min; Est GFR (African American) 116.8 ml/min; Est GFR (Non-African American) 100.8 ml/min
[2023-08-06] MEDS: guaiFENesin/CODEINE 100MG/10MG 5ML UDC PO PRN (07:30)
[2023-08-06] MEDS ORDERED: AMOXICILLIN/CLAVULANATE 875 MG TAB PO SCH (08:00)
[2023-08-06] MEDS: SERTRALINE HCL 50 MG TABLET PO SCH (08:36)
[2023-08-06] MEDS: FLECAINIDE ACETATE 100 MG TABLET PO SCH (08:36)
[2023-08-06] MEDS: VITAMIN B COMPLEX TAB PO SCH (08:36)
[2023-08-06] MEDS: ACETAMINOPHEN 500 MG TAB PO PRN (11:57)
--- OUTSIDE RECORDS SUMMARY | 2023-08-07 22:11 | External Medical Summary | Summary of Care ---
Author Name Unknown Organization [facility] Address [address] [facility] [place] [address] Phone [phone] Care Team Providers Care Assistant Center Director Name Role Phone Alberto Mcnamara MD Primary Care Provider Reason for Visit * Reason Comments Follow Up 3m Encounter Details Date Type Department Care Team (Late st Contact Info) Description 07/22/2023 10:45 AM EDT Office Visit Hematology/Oncology [facility] [employer] [address] [facility] [place] [address] Dylon Lilly MD [address] [facility] [place] [address] CLL (chronic lymphocytic leukemia) (HCC)*; Hypogammaglobulinemia (HCC) Allergies Active Allergy Reactions Criticality Noted Date Comments Erythromycin Base 01/12/1998 GI upset Hydrochlorothiazide 03/02/2020 Dabigatran 03/02/2020 Rivaroxaban 03/02/2020 documented as of this encounter (statuses as of 07/22/2023) Medications Medication Sig Dispensed Refills Start Date End Date Status albuterol (PROVENTIL HFA) 108 (90 BASE) MCG/ACT inhaler Inhale 2 Puffs by mouth every 6 hours as needed. 0 Active Cetirizine HCl 10 MG Capsule Take 1 Capsule by mouth daily as needed for Rhinitis. 0 Active Melatonin 3 MG Capsule Take 1 Capsule by mouth at bedtime. 0 Active Aoqduxy-Jivputxol-Rew mack D 500-250-200 MG-MG-UNIT TABS Take by mouth. 0 Acti ve Probiotic Product (PROBIOTIC & ACIDOPHILUS EX ST) Capsule Take 1 Cap by mouth daily. 0 Active vitamin c (ASCORBIC ACID) 500 MG Tablet Take 400 mg by mouth daily. 0 Active Flecainide Acetate 100 MG Oral Tablet Take by mouth every 12 hours. Take 50mg in the morning and 100mg in the evening 0 02/02/2020 Active furosemide (LASIX) 20 MG Tablet Take 1 Tablet by mouth. Take 6 days per week 0 Active Metoprolol Tartrate 75 MG Oral Tablet Take 75 mg by mouth every night at bedtime. 0 Active Turmeric 500 MG TABS Take by mouth. 0 Active Multiple Vitamins-Minerals (GNP ONE DAILY WOMENS) TABS Take by mouth. 0 Active potassium chloride ER 10 MEQ CPCR Take 1 Capsule by mouth in the morning. Friday, Fri, Friday . 0 Active prochlorperazine (COMPAZINE) 10 MG TabletIndications:CLL (chronic lymphocytic leukemia) (HCC),Hypogammaglobul inemia (HCC) Take 1 Tab by mouth every 6 hours as needed for Nausea. 60 Tab 2 03/23/2020 Active Vitamin B-12 500 MCG Oral Tablet (vitamin B-12) Take 1 Tablet by mouth in the morning. 0 Active Zolpidem Tartrate 10 MG Oral Tablet (Ambien) Take 10 mg by mouth at bedtime as needed for Sleep. 0 Active Vitamin D (Ergocalciferol) 1.25 MG (52314 UT) Oral Capsule Take 1 Capsule by mouth in the morning. 0 Active Ipratropium [place] 0.02 % Inhalation Solution (Atrovent) Inhale via nebulizer 500 mcg in the morning AND 500 mcg at noon AND 500 mcg in the evening AND 500 mcg before bedtime. 0 Active NATURAL SUPPLEMENT Take by mouth daily . 0 Active Rivaroxaban 20 MG Oral Tablet Take 1 Tablet by mouth daily with dinner. 0 Active traMADol HCl 50 MG Oral Tablet (Ultram) Take 1 Tablet by mouth every 6 hours as needed. 0 Active LORazepam 0.5 MG Oral Tablet (Ativan) Take 1 Tablet by mouth every 8 hours as needed for Anxiety or Sleep. 0 Active Sertraline HCl 50 MG Oral Tablet Take 1 Tablet by mouth in the morning. 0 Active Sennosides-Docusate Sodium 8.6-50 MG Oral Tablet (Senexon-S) Take 1 Tablet by mouth in the morning. 0 Active documented as of this encounter (statuses as of 07/22/2023) Active Problems Problem Noted Date Diagnosed Date CLL (chronic lymphocytic leukemia) 03/03/2020 Hypogammaglobulinemia 03/03/2020 Neutropenia 03/03/2020 BENIGN HYPERTENSION 08/22/1998 FAMILY HX-GI MALIGNANCY 08/22/1998 documented as of this encounter (statuses as of 07/22/2023) Social History Tobacco Use Types Packs/Day Years Used Date Smoking Tobacco: Never Smokeless Tobacco: Never Tobacco Cessation:Counseling Given: Not Answered Alcohol Use Standard Drinks/Week Comments Yes 0 (1 standard drink = 0.6 oz pur e alcohol) social Sex and Gender Information Value Date Recorded Sex Assigned at Not on file Gender Identity Not on file Sexual Orientation Not on file Job Start Date Occupation Industry Not on file Not on file Not on file documented as of this encounter Last Filed Vital Signs Vital Sign Reading Time Taken Comments Blood Pressure 152/87 07/22/2023 10:50 AM EDT Pulse 86 07/22/2023 10:50 AM EDT Temperature 36.7 C (98 F) 07/22/2023 10: 50 AM EDT Respiratory Rate 16 07/22/2023 10:5 0 AM EDT Oxygen Saturation 98% 07/22/2023 10: 50 AM EDT Inhaled Oxygen Concentration - - Weight 74.3 kg (163 lb 12.8 oz) 023 10:50 AM EDT Height 154.9 cm (5' 1") 07/22/2023 10:5 0 AM EDT Body Mass Index 30.95 07/22/2023 10:50 AM EDT documented in this encounter Progress Notes * Dylon Lilly MD - 07/22/2023 10:45 AM EDT Hematology/Oncology Outpatient Clinic note [address] [place] [address] Name: Lashonda Rodriguez Date: 04/16/2023 CHIEF COMPLAINT: Lashonda Rodriguez is a 72 year old female here today for f/u visit today. HEMATOLOGY/ONCOLOGY DIAGNOSIS: B-cell CLL initially diagnosed in 2005 - significant rise in the lymphocyte count and significant neutropenia with worsening anemia and thrombocytopenia noted in late 2019 Hypogammaglobinemia Neutropenia: -she had received G-CSF prophylaxis initially 3 times a week, change to twice a week. When we triedonce a week Neupogen, she had ANC around 700 so we decided to go back to prophylactic Neupogen twice a week. Currently she is not on G-CSF supplementation. TREATMENT HISTORY: - Obinutuzumab (she received 3 treatments when she was in [place], on 05/19/2020, she is here for the last cycle with Obinutuzumab). Overall she completed total 6 cycles of brentuximab. Last cycle received on 05/19/2020. -venetoclax (started in 12/2019, planning for total 1 year of Venetoclax). She was on venetoclax 400mg once a day. She completed Venetoclax on 12/29/20. CURRENT TREATMENT: -IVIG 25 g every 4 weekly, change to every 6 weekly as of 04/13/2020. Xarelto 20 mg daily DIAGNOSTIC WORKUP: Diagnosed a case of B-cell CLL in 2005, she had remained under observation, imaging studies done around that time showed some mild lymphadenopathy. She did not have the cytopenias. Noticed to have some hypogammaglobinemia about 3 to 4 years back and with repeated pulmonary infections, she was started on IV immunoglobulin treatment, she was treated with IV immunoglobulin intermittently based on IgA level under the guidance of Dr. Avalos at that time, lately she is receiving IV immunoglobulin every monthly (25 g). For the last few years she has been staying in [place] during the winter months, has seen Dr. Dwain Martinez over there. Blood workup done at [facility] in August 2019: -WBC 35[address], H&H of 9.3/28.5, MCV 108, Platelet count of 120,000 -ANC 0.93, Absolute lymphocyte count 60,000. - normal kidney and liver function test. Because of significant neutropenia and thrombocytopenia, she had a bone marrow examination while she was in [place], reported to have 90% cellularity, filled with CLL cells, no dysplastic changes noted. Cytogenetics showed deletion of 13q, mutated IgVH noted. WBC count was around 60,000, Hemoglobin level around 9.5 g/dL, Platelet count was 120,000 with ANC between 0.5-0.9 range before she was started on specific treatment for CLL. -started on Obinutuzumab ( (Gazyva) started on 12/15/2019. -started on venetoclax 3 weeks later on 01/05/2020. She completed initial ramp up of venetoclax over 5 weeks. Last treatment of Obinutuzumab received on 02/23/2020. Completed venetoclax 400 mg once a day on 12/29/20. Started on Neupogen because of significant neutropenia. OTHER IMPORTANT HISTORY: - AFib, she is on Eliquis. 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 She follows with Dr. Payne. She was on rifampicin which is discontinued when she was started on venetoclax. (Because of drug drug interaction) now she has completed the treatment primary infection. HISTORY OF PRESENT ILLNESS: She has come to the clinic for the follow-up, she receives IVIG every 6 weekly, overall she is doing well, good appetite, weight gain noted, current weight 163 lb, no nausea no vomiting, no fever, she is on Xarelto for underlying AFib, no new bleeding complications, no cardiac or pulmonary symptoms, no back pain, no fever, no infections. Past Medical History: Diagnosis Date Abdominal cramping Abdominal pain Allergic rhinitis Arthritis Asthma Chronic lymphocytic leukemia (HCC) Diarrhea GERD (gastroesophageal reflux disease) Joint pain, knee Nausea Osteopenia Solitary pulmonary nodule Past Surgical History: Procedure Laterality Date CARPAL TUNNEL SURGERY Bilateral COLONOSCOPY 2011 Dr. Roberson COLONOSCOPY, DIAGNOSTIC (RECTUM) 07/10/2016 diverticulosis, repeat 10 yrs/COLONOSCOPY FLEXIBLE PROXIMAL DIAGNOSTIC performed by Jin Jacobson MD at [facility] ABDOMEN/PELVIS 04/16/16 MISCELLANEOUS ORDER ([facility] ONLY) multiple foot surgeries MISCELLANEOUS ORDER ([facility] ONLY) 1995 mammoplasty MISCELLANEOUS ORDER ([facility] ONLY) 2012 right knee surgery TOTAL ABD HYSTERECTOMY W/WO REMOVAL OF TUBE(S) 1994 Social History Tobacco Use Smoking status: Never Smokeless tobacco: Never Vaping Use Vaping Use: Never used Substance and Sexual Activity Alcohol use: Yes Comment: social Drug use: Never Review of patient's allergies indicates: Allergen Reactions Erythromycin Base GI upset Hydrochlorothiazide Pradaxa [Dabigatran] Xarelto [Rivaroxaban] Current Outpatient Medications Medication Sig Dispense Refill albuterol (PROVENTIL HFA) 108 (90 BASE) MCG/ACT inhaler Inhale 2 Puffs by mouth every 6 hours as needed. Cetirizine HCl 10 MG Capsule Take 1 Capsule by mouth daily as needed for Rhinitis. Melatonin 3 MG Capsule Take 1 Capsule by mouth at bedtime. Lxlmggc-Bknzoybak-Vnjrzyn D 500-250-200 MG-MG-UNIT TABS Take by mouth. Probiotic Product (PROBIOTIC & ACIDOPHILUS EX ST) Capsule Take 1 Cap by mouth daily. vitamin c (ASCORBIC ACID) 500 MG Tablet Take 400 mg by mouth daily. Flecainide Acetate 100 MG Oral Tablet Take by mouth every 12 hours. Take 50mg in the morning and 100mg in the evening furosemide (LASIX) 20 MG Tablet Take 1 Tablet by mouth. Take 6 days per week Metoprolol Tartrate 75 MG Oral Tablet Take 75 mg by mouth every night at bedtime. Turmeric 500 MG TABS Take by mouth. Multiple Vitamins-Minerals (GNP ONE DAILY WOMENS) TABS Take by mouth. potassium chloride ER 10 MEQ CPCR Take 1 Capsule by mouth in the morning. Friday, Fri, Friday . prochlorperazine (COMPAZINE) 10 MG Tablet Take 1 Tab by mouth every 6 hours as needed for Nausea. 60 Tab 2 Vitamin B-12 500 MCG Oral Tablet (vitamin B-12) Take 1 Tablet by mouth in the morning. Zolpidem Tartrate 10 MG Oral Tablet (Ambien) Take 10 mg by mouth at bedtime as needed for Sleep. Vitamin D (Ergocalciferol) 1.25 MG (95177 UT) Oral Capsule Take 1 Capsule by mouth in the morning. Ipratropium [place] 0.02 % Inhalation Solution (Atrovent) Inhale via nebulizer 500 mcg in the morning AND 500 mcg at noon AND 500 mcg in the evening AND 500 mcg before bedtime. NATURAL SUPPLEMENT Take by mouth daily . Rivaroxaban 20 MG Oral Tablet Take 1 Tablet by mouth daily with dinner. traMADol HCl 50 MG Oral Tablet (Ultram) Take 1 Tablet by mouth every 6 hours as needed. (Patient not taking: Reported on 04/17/2023) LORazepam 0.5 MG Oral Tablet (Ativan) Take 1 Tablet by mouth every 8 hours as needed for Anxiety orSleep. Sertraline HCl 50 MG Oral Tablet Take 1 Tablet by mouth in the morning. No current facility-administered medications for this visit. REVIEW OF SYSTEMS: See HPI - otherwise negative OBJECTIVE:BP 152/87 (BP Site: Left Arm, BP Position: Sitting, BP Cuff Size: Large) | Pulse 86 | Temp 36.7 C (98 F) (Tympanic) | Resp 16 | Ht 1.549 m (5' 1") | Wt 74.3 kg (163 lb 12.8 oz) | SpO2 98% | BMI 30.95 kg/m | BSA 1.79 m PHYSICAL EXAM: General Appearance: No acute distress Lymph Nodes: Normal - No palpable lymph nodes in the neck, supraclavicular or axillary areas Lungs/Thorax: Clear to auscultation and diminished in bases Heart: Normal - Regular rate and rhythm, normal S1, S2, no appreciable murmurs Extremities: +1 edema LLE Abdomen: Normal - Soft, nontender, bowel sounds present, no appreciable hepatosplenomegaly, no palpable masses Neurologic: Normal - Grossly intact LABS: Blood workup done on 07/10/2023: -WBC 4600, H&H of 12/36.6, MCV 95, Platelet count 084338 -BUN/Creat: 13/0.7 Normal LFT, Calcium 9.5 -Ig, IgA 56, IgM 11. IMPRESSION/PLAN: 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 IgG level is above 800 range. No b symptoms. Slight weight gain noted. No B symptoms, no palpable lymphadenopathy on examination. She is tolerating the IVIG without any obvious side effects. Will continue IVIG every [address] Dylon Lilly Hem/Onc (This note was completed using the dictation program Fluency Direct. As such, there may be misspellings, word substitutions, or other variations that should not change the essence of the clinical content of this encounter note. If there is need for further clarification, please direct questions to the provider listed above.) documented in this encounter Nursing Notes * Jannet Camargo CMA - 07/22/2023 10:51 AM EDT Patient identifed by name and birthdate Do you have any concerns about pain management for today's visit? No Living Will or Advance Directive for Health Care as noted on the problem list. [facility] is a way you can talk to your provider on line through e-mail. Would you like to sign up? I can activate it for you? ALREADY ACTIVE Filed Vitals: 07/22/23 1050 BP: 152/87 Pulse: 86 Resp: 16 Temp: 36.7 C (98 F) TempSrc: Tympanic SpO2: 98% Weight: 74.3 kg (163 lb 12.8 oz) Height: 1.549 m (5' 1") Patient was instructed to not get up on the exam table/exam chair until directed and assisted by their provider; patient is to remain seated in the chair/ wheelchair/ exam table/ exam chair for fall prevention and safety reasons. Patient is aware to have assistance to step down off exam table/exam chair with personnel. Patient voiced full comprehension of instructions. NOTE: Distress score 5/10 due to being dx with Dementia documented in this encounter Plan of Treatment Upcoming Encounters Date Type Department Care Team (Late st Contact Info) Description 08/28/2023 10:00 AM EST Laboratory Laboratory [facility] [address] [place] [id number] [address] [facility] [place] [address] 08/28/2023 11:00 AM EST Hem/Onc Treatment Hematology/Oncology Treatment, [place] [address] [facility] [place] [address] 01/21/2024 11:15 AM EDT Office Visit Hematology/Oncology [facility] [address] [place] [address] Dylon Lilly MD [address] [facility] [place] [address] Scheduled Procedures Name Priority Associated Diagnoses Date/Ti me COLONOSCOPY FLEXIBLE PROXIMA L DIAGNOSTIC Recall Encounter for screening colonoscopy Health Maintenance Due Date Last Done Comments DXA Scan 1951 Lipid Panel 1951 COVID-19 Vaccine (#1) 1956 Pneumococcal Vaccine: 65+ Years (1 - PCV) 1957 Depression Screening 1963 Albumin/Creatinine Ratio 1969 DTaP,Tdap,and Td Vaccines (1 - Tdap) 1970 Zoster Vaccines (1 of 2) 1970 Cologuard 1996 Fecal Occult Blood Test 1996 Sigmoidoscopy 1996 Mammogram 09/14/2020 09/14/2019, 03/30/1999 Influenza Vaccine (FLU shot) (#1) 2023 GFR 07/10/2024 07/10/2023, 08/09/2022, 04/17/2023, Additional history exists Colonoscopy 07/10/2026 07/10/2016, 06/29, 09/01/1998 Colorectal Cancer Screening 07/10/2026 GARDASIL-HPV IMMUNIZATION SERIES Aged Out No longer eligible based on patient's age to complete this topic Hepatitis B Aged Out No longer eligi ble based on patient's age to complete this topic MENINGOCOCCAL (MENACTRA/MENVEO) Aged Out No longer eligible based on patient's age to complete this topic documented as of this encounter Medical Devices Not on filedocumented as of this encounter Visit Diagnoses Diagnosis CLL (chronic lymphocytic leukemia) (HCC)- Primary Chronic lymphoid leukemia, without mention of having achieved remission Hypogammaglobulinemia (HCC) Hypogammaglobulinaemia, unspecified documented in this encounter Care Teams Assistant Center Director Relationship Specialty Start Date End Date Alberto Mcnamara MD [address] [address] PCP - General Internal Medicine 06/25/16 documented as of this encounter
--- OUTSIDE RECORDS SUMMARY | 2023-08-07 22:12 | External Medical Summary | Summary of Care ---
Author Name Unknown Organization [facility] Address [address] [facility] [place] [address] Phone [phone] Care Team Providers Care Software Qa System Specialist Name Role Phone Alberto Mcnamara MD Primary Care Provider Reason for Visit * Reason Comments Outpatient Testing Encounter Details Date Type Department Care Team Description 05/29/2023 Laboratory Laboratory [facility] [address] [place] [id number] [place], [facility] [address] [place] [id number] Hypogammaglobulinemia (HCC); CLL (chronic lymphocytic leukemia) ([facility]) Allergies Active Allergy Reactions Severity Noted Date Comments Erythromycin Base 01/12/1998 GI upset Hydrochlorothiazide 03/02/2020 Dabigatran 03/02/2020 Rivaroxaban 03/02/2020 documented as of this encounter (statuses as of 05/29/2023) Medications Medication Sig Dispensed Refills Start Date End Date Status albuterol (PROVENTIL HFA) 108 (90 BASE) MCG/ACT inhaler Inhale 2 Puffs by mouth every 6 hours as needed. 0 Active Cetirizine HCl 10 MG Capsule Take 1 Capsule by mouth daily as needed for Rhinitis. 0 Active Melatonin 3 MG Capsule Take 1 Capsule by mouth at bedtime. 0 Active Nyjyqkh-Ccjsapkjy-Sij mack D 500-250-200 MG-MG-UNIT TABS Take by mouth. 0 Activ e Probiotic Product (PROBIOTIC & ACIDOPHILUS EX ST) [...] 0 Active Vitamin D (Ergocalciferol) 1.25 MG (58435 UT) Oral Capsule Take 1 Capsule by mouth in the morning. 0 Active Ipratropium [place] 0.02 % Inhalation Solution (Atrovent) Inhale via [...] as of this encounter (statuses as of 05/29/2023) Active Problems Problem Noted Date CLL (chronic lymphocytic leukemia) 03/03 Hypogammaglobulinemia 03/03/2020 Neutropenia 03/03/2020 BENIGN HYPERTENSION 08/22/1998 FAMILY HX-GI MALIGNANCY 08/22/1998 documented as of this encounter (statuses as of 05/29/2023) Social History Tobacco Use Types Packs/Day Years Used Date Smoking Tobacco: Never Smokeless Tobacco: Never Alcohol Use Standard Drinks/Week Comments Yes 0 (1 standard drink = 0.6 oz pur e alcohol) social Sex Assigned at Date Recorded Not on file Job Start Date Occupation Industry Not on file Not on file Not on file documented as of this encounter Plan of Treatment Upcoming Encounters Date Type Specialty Care Team Description 05/29/2023 Hem/Onc Treatment Hematology Oncology Arrived 07/22/2023 Office Visit Hematology Oncology Dylon Lilly MD [address] [place] [address] Pending Results Name Type Priority Associated Diagnoses Date /Time COMPREHENSIVE METABOLIC PANEL Lab STAT Hypogammaglobulinemia (HCC) CLL (chronic lymphocytic leukemia) (HCC) 05/29/2023 12:07 PM EDT Scheduled Procedures Name Priority Associated Diagnoses Date/Ti me COLONOSCOPY FLEXIBLE PROXIMA L DIAGNOSTIC Recall Encounter for screening colonoscopy Health Maintenance Due Date Last Done Comments DXA Scan 1951 Lipid Panel 1951 COVID-19 Vaccine (#1) 1956 Pneumococcal Vaccine: 65+ Years (1 - PCV) 1957 Depression Screening, Annual for Pts 12 and Over 1963 Albumin/Creatinine Ratio 1969 DTaP,Tdap,and Td Vaccines (1 - Tdap) 1970 Zoster Vaccines (1 of 2) 1970 Cologuard 1996 Fecal Occult Blood Test 1996 Sigmoidoscopy 1996 Mammogram 09/14/2020 09/14/2019, 03/30/1999 Influenza Vaccine (FLU shot) (#1) 2023 GFR 04/17/2024 04/17/2023, 06/0 04/2023, 01/23/2023, Additional history exists Colonoscopy 07/10/2026 07/10/2016, 06/29, [...] Not on filedocumented as of this encounter Procedures Procedure Name Priority Date/Time Associated Diagnosis Comments DIFFERENTIAL, AUTOMATED STAT 05/29/2023 12:07 PM EDT Hypogammaglobulinem ia (HCC) CLL (chronic lymphocytic leukemia) (HCC) CBC WITH WBC DIFFERENTIAL STAT 05/29/2023 12:07 PM EDT Hypogammaglobulinem ia (HCC) CLL (chronic lymphocytic leukemia) (HCC) CBC STAT 05/29/2023 12:07 PM EDT Hypogammaglobulinem ia (HCC) CLL (chronic lymphocytic leukemia) (HCC) documented in this encounter Results * (ABNORMAL) DIFFERENTIAL, AUTOMATED (05/29/2023 12:07 PM EDT) WBC 4.70 4.00 - 10.80 K/uL 05/29/2023 12:13 PM EDT [facility] 56-02 Neutrophils % 69.2 40.0 - 75.0 % 05/29/2023 12:13 PM EDT [facility] 56-02 Lymphocytes % 16.0(L) 18.0 - 42.0 % 05/29/2023 12:13 PM EDT [facility] 56-02 Monocytes % 12.1(H) 1.0 - 11.0 % 05/29/2023 12:13 PM EDT [facility] [place] 56-02 Eosinophils % 2.1 0.0 - 6.0 % 05/29/2023 12:13 PM EDT [facility] 56-02 Basophils % 0.6 0.0 - 2.0 % 05/29/2023 12:13 PM EDT [facility] 56-02 Absolute Neutrophils 3.25 1.80 - 7.70 K/uL 05/29/2023 12:13 PM EDT [facility] 56-02 Absolute Lymphocytes 0.75(L) 1.00 - 4.80 K/ul 05/29/2023 12:13 PM EDT [facility] 56 Absolute Monocytes 0.57 0.00 - 1.10 K/uL 05/29/2023 12:13 PM EDT [facility] 56 Absolute Eosinophils 0.10 0.00 - 0.70 K/uL 05/29/2023 12:13 PM EDT [facility] 56 Absolute Basophils 0.03 0.00 - 0.20 K/uL 05/29/2023 12:13 PM EDT [facility] 56 Blood Venous blood specimen / Unknown Venipuncture / Unknown 05/29/2023 12:07 PM EDT 05/29/2023 12:07 PM EDT Dylon Lilly MD LAB BLOOD ORDERABLES [address] [place] [address] * CBC (05/29/2023 12:07 PM EDT) WBC 4.70 4.00 - 10.80 K/uL 05/29/2023 12:13 PM EDT [address] RBC 4.15 3.85 - 5.15 M/uL 05/29/2023 12:13 PM EDT [address] HGB 12.9 12.0 - 15.3 g/dL 05/29/2023 12:13 PM EDT [address] HCT 38.7 36.0 - 45.2 % 05/29/2023 12:13 PM EDT [address] MCV 93.3 81.5 - 97.5 fL 05/29/2023 12:13 PM EDT [facility] 56 MCH 31.1 27.0 - 34.0 pg 05/29/2023 12:13 PM EDT [facility] 56 MCHC 33.3 32.0 - 36.0 g/dL 05/29/2023 12:13 PM EDT [facility] 56 RDW 13.3 11.5 - 15.5 % 05/29/2023 12:13 PM EDT [facility] PLT 236 140 - 400 K/uL 05/29/2023 12:13 PM EDT [facility] MPV 9.6 6.6 - 11.1 fL 05/29/2023 12:13 PM EDT [facility] Blood Venous blood specimen / Unknown Venipuncture / Unknown 05/29/2023 12:07 PM EDT 05/29/2023 12:07 PM EDT Dylon Lilly MD LAB BLOOD ORDERABLES [facility] [address] [place] [address] documented in this encounter Visit Diagnoses Diagnosis Hypogammaglobulinemia (HCC) Hypogammaglobulinaemia, unspecified CLL (chronic lymphocytic leukemia) (HCC) Chronic lymphoid leukemia, without mention of having achieved remission documented in this encounter Care Teams Software Qa System Specialist Relationship Specialty Start Date End Date Alberto Mcnamara MD [address] [place] [address] PCP - General Internal Medicine 06/25/16 documented as of this encounter
--- OUTSIDE RECORDS SUMMARY | 2023-08-07 22:12 | External Medical Summary ---
Author Name Unknown Address Unknown Organization K09[facility] [place] [place] [address] Laboratory Report Ordering Provider Test Date Status DEVANG RAMÍREZ 05/29/2023 12:07:41 Final Observation Date Value Abnormality Reference (Units ) Status WBC, Total 05/29/2023 12:07:41 4.70 4.00-10.8 0 (K/uL) Final RBC 05/29/2023 12:07:41 4.15 3.85-5.15 (M/uL) Final Hemoglobin 05/29/2023 12:07:41 12.9 12.0-15.3 (g/dL) Final HCT 05/29/2023 12:07:41 38.7 36.0-45.2 (%) Final MCV 05/29/2023 12:07:41 93.3 81.5-97.5 (fL) Final MCH 05/29/2023 12:07:41 31.1 27.0-34.0 (pg) Final MCHC 05/29/2023 12:07:41 33.3 32.0-36.0 (g/dL) Final RDW 05/29/2023 12:07:41 13.3 11.5-15.5 (%) Final Platelets 05/29/2023 12:07:41 236 140-400 (K /uL) Final MPV 05/29/2023 12:07:41 9.6 6.6-11.1 ( fL) Final Performing Location [facility] [place] [address]
--- OUTSIDE RECORDS SUMMARY | 2023-08-07 22:12 | External Medical Summary ---
Author Name Unknown Address Unknown Organization K09:[facility] [address]ak[address] [place] [address] Laboratory Report Ordering Provider Test Date Status DEVANG RAMÍREZ 05/29/2023 12:07:41 Final Observation Date Value Abnormality Reference (Units ) Status BUN 05/29/2023 12:07:41 12 6-20 (mg/dL) Final Creatinine 05/29/2023 12:07:41 0.7 0.5-1.0 (mg/dL) Final Glomerular filtration rate/1.73 sq M.predicted [Volume Rate/Area] in Serum, Plasma or Blood by Creatinine-based formula (CKD-EPI) 05/29/2023 12:07:41 86 >=60 (mL/min) Final eGFR is calculated based on the CKD-EPI 2020 equation SODIUM 05/29/2023 12:07:41 128 Below low normal 135 -146 (mmol/L) Final Potassium 05/29/2023 12:07:41 3.6 3.5-5.1 (m mol/L) Final Cl 05/29/2023 12:07:41 90 Below low normal 98- 107 (mmol/L) Final CO2 05/29/2023 12:07:41 29 22-32 (mmo l/L) Final Anion gap 05/29/2023 12:07:41 9 7-15 (mmol /L) Final Glucose 05/29/2023 12:07:41 89 70-120 (mg /dL) Final Albumin 05/29/2023 12:07:41 4.5 3.8-5.0 (g /dL) Final AST (Aspartate aminotransferase) 05/29/2023 12:07:41 21 10-35 (U/L) Fin al Alk Phos 05/29/2023 12:07:41 137 Above high normal 35 -130 (U/L) Final Bilirubin, Total 05/29/2023 12:07:41 0.5 <=1 .2 (mg/dL) Final Calcium 05/29/2023 12:07:41 9.8 8.4-10.2 ( mg/dL) Final Protein 05/29/2023 12:07:41 7.0 6.0-8.3 (g /dL) Final ALT (Alanine aminotransferase) 05/29/2023 12:07:41 15 10-35 (U/L) Eduardo romero Performing Location [facility] [address] [place] [address]
--- OUTSIDE RECORDS SUMMARY | 2023-08-07 22:12 | External Medical Summary | Summary of Care ---
Author Name Unknown Organization [facility] Address [address] [facility] [place] [address] Phone [phone] Care Team Providers Care Hepatologist Name Role Phone Alberto Mcnamara MD Primary Care Provider [phone] Reason for Visit * Reason Comments Outpatient Testing Encounter Details Date Type Department Care Team Description 07/10/2023 Laboratory Laboratory [facility] [address] [place] [id number] [place], Lab Scenery [address] [facility] [place] [address] Hypogammaglobulinemia (HCC); CLL (chronic lymphocytic leukemia) ([facility]) Allergies Active Allergy Reactions Severity Noted Date Comments Erythromycin Base 01/12/1998 GI upset Hydrochlorothiazide 03/02/2020 Dabigatran 03/02/2020 Rivaroxaban 03/02/2020 documented as of this encounter (statuses as of 07/10/2023) Medications Medication Sig Dispensed Refills Start Date End Date Status albuterol (PROVENTIL HFA) 108 (90 BASE) MCG/ACT inhaler Inhale 2 Puffs by mouth every 6 hours as needed. 0 Active Cetirizine HCl 10 MG Capsule Take 1 Capsule by mouth daily as needed for Rhinitis. 0 Active Melatonin 3 MG Capsule Take 1 Capsule by mouth at bedtime. 0 Active Appejwy-Qlhziudjv-Veu mack D 500-250-200 MG-MG-UNIT TABS Take by [...] 0 Active Vitamin D (Ergocalciferol) 1.25 MG (05872 UT) Oral Capsule Take 1 Capsule by mouth in the morning. 0 Active Ipratropium [place] 0.02 % Inhalation Solution (Atrovent) Inhale via [...] as of this encounter (statuses as of 07/10/2023) Active Problems Problem Noted Date CLL (chronic lymphocytic leukemia) 03/03 Hypogammaglobulinemia 03/03/2020 Neutropenia 03/03/2020 BENIGN HYPERTENSION 08/22/1998 FAMILY HX-GI MALIGNANCY 08/22/1998 documented as of this encounter (statuses as of 07/10/2023) Social History Tobacco Use Types Packs/Day Years [...] Encounters Date Type Specialty Care Team Description 07/10/2023 Hem/Onc Treatment Hematology Oncology [place], Chair 2 Hem Onc Scenery [address] [place] [address] Arrived 07/22/2023 Office Visit Hematology Oncology Dylon Lilly MD [address] [place] [address] Pending Results Name Type Priority Associated Diagnoses Date /Time COMPREHENSIVE METABOLIC PANEL Lab STAT Hypogammaglobulinemia (HCC) CLL (chronic lymphocytic leukemia) (HCC) 07/10/2023 12:04 PM EDT IMMUNOGLOBULIN QUANTITATIVE Lab Routine Hypogammaglobulinemia (HCC) CLL (chronic lymphocytic leukemia) (HCC) 07/10/2023 12:04 PM EDT Scheduled Procedures Name Priority Associated [...] Influenza Vaccine (FLU shot) (#1) 2023 GFR 05/29/2024 05/29/2023, 03/30, 03/06/2023, Additional history exists Colonoscopy 07/10/2026 07/10/2016, 06/29, [...] Date/Time Associated Diagnosis Comments DIFFERENTIAL, AUTOMATED STAT 07/10/2023 12:04 PM EDT Hypogammaglobulinemi a (HCC) CLL (chronic lymphocytic leukemia) (HCC) CBC STAT 07/10/2023 12:04 PM EDT Hypogammaglobulinemi a (HCC) CLL (chronic lymphocytic leukemia) (HCC) CBC STAT 07/10/2023 12:04 PM EDT Hypogammaglobulinemi a (HCC) CLL (chronic lymphocytic leukemia) (HCC) documented in this encounter Results * (ABNORMAL) DIFFERENTIAL, AUTOMATED (07/10/2023 12:04 PM EDT) WBC 4.63 4.00 - 10.80 K/uL 07/10/2023 12:14 PM EDT [facility] 56-02 Neutrophils % 74.1 40.0 - 75.0 % 07/10/2023 12:14 PM EDT [facility] [place] 56-02 Lymphocytes % 13.0(L) 18.0 - 42.0 % 07/10/2023 12:14 PM EDT [facility] [place] 56-02 Monocytes % 9.5 1.0 - 11.0 % 07/10/2023 12:14 PM EDT [facility] [place] 56-02 Eosinophils % 3.0 0.0 - 6.0 % 07/10/2023 12:14 PM EDT [facility] [place] 56-02 Basophils % 0.4 0.0 - 2.0 % 07/10/2023 12:14 PM EDT [facility] 56 Absolute Neutrophils 3.43 1.80 - 7.70 K/uL 07/10/2023 12:14 PM EDT [facility] 56 Absolute Lymphocytes 0.60(L) 1.00 - 4.80 K/ul 07/10/2023 12:14 PM EDT [facility] 56 Absolute Monocytes 0.44 0.00 - 1.10 K/uL 07/10/2023 12:14 PM EDT [facility] 56 Absolute Eosinophils 0.14 0.00 - 0.70 K/uL 07/10/2023 12:14 PM EDT [facility] 56 Absolute Basophils 0.02 0.00 - 0.20 K/uL 07/10/2023 12:14 PM EDT [facility] 56 Blood Venous blood specimen / Unknown Venipuncture / Unknown 07/10/2023 12:04 PM EDT 07/10/2023 12:04 PM EDT Dylon Lilly MD LAB BLOOD ORDERABLES [facility] [address] [place] [address] * CBC (07/10/2023 12:04 PM EDT) WBC 4.63 4.00 - 10.80 K/uL 07/10/2023 12:14 PM EDT [facility] 56 RBC 3.85 3.85 - 5.15 M/uL 07/10/2023 12:14 PM EDT [facility] 56 HGB 12.1 12.0 - 15.3 g/dL 07/10/2023 12:14 PM EDT [facility] 56 HCT 36.6 36.0 - 45.2 % 07/10/2023 12:14 PM EDT [facility] 56- MCV 95.1 81.5 - 97.5 fL 07/10/2023 12:14 PM EDT [facility] 56 MCH 31.4 27.0 - 34.0 pg 07/10/2023 12:14 PM EDT [facility] MCHC 33.1 32.0 - 36.0 g/dL 07/10/2023 12:14 PM EDT [facility] 56 RDW 13.7 11.5 - 15.5 % 07/10/2023 12:14 PM EDT [facility] 56 PLT 237 140 - 400 K/uL 07/10/2023 12:14 PM EDT [facility] 56 MPV 9.7 6.6 - 11.1 fL 07/10/2023 12:14 PM EDT [facility] 56 Blood Venous blood specimen / Unknown Venipuncture / Unknown 07/10/2023 12:04 PM EDT 07/10/2023 12:04 PM EDT Dylon Lilly MD LAB BLOOD ORDERABLES [facility] [address] [place] [address] documented in this encounter Visit Diagnoses Diagnosis Hypogammaglobulinemia (HCC) Hypogammaglobulinaemia, unspecified CLL (chronic lymphocytic leukemia) (HCC) Chronic lymphoid leukemia, without mention of having achieved remission documented in this encounter Care Teams Hepatologist Relationship Specialty Start Date End Date Alberto Mcnamara MD [address] [address] PCP - General Internal Medicine 06/25/16 documented as of this encounter
--- OUTSIDE RECORDS SUMMARY | 2023-08-07 22:12 | External Medical Summary | Summary of Care ---
Author Name Unknown Organization [facility] Address [address] [facility] [place] [address] Phone [phone] Care Team Providers Care Veneer Redrier Name Role Phone Alberto Mcnamara MD Primary Care Provider Reason for Visit * Reason Comments IV Therapy Privigen * Episode Based Medications (Routine) - Authorized Specialty Diagnoses / Procedures Referred By Contmaty t Referred To Contact Diagnoses CLL (chronic lymphocytic leukemia) (HCC) Hypogammaglobulinemia (HCC) Procedures ID INJ IVIG PRIVIGEN 500 MG Dylon Lilly MD [address] [place] [address] Anc Hem/Onc Scenery [place] [address] [place] [address] Referral ID Status Reason Start Date Expiration Date V isits Requested Visits Authorized [id number] Authorized 02/21/2021 09/28/2099 99 99 Encounter Details Date Type Department Care Team Description 07/10/2023 Hem/Onc Treatment Hematology/Oncology Treatment, [place] [address] [place] [address] [place], Chair 2 Hem Onc Scenery [address] [place] [address] CLL (chronic lymphocytic leukemia) (HCC)*; Hypogammaglobulinemi a (HCC) Allergies Active Allergy Reactions Severity Noted Date [...] Capsule by mouth at bedtime. 0 Active Yladahg-Ytyphqgye-Eog mack D 500-250-200 MG-MG-UNIT TABS Take by [...] 0 Active Vitamin D (Ergocalciferol) 1.25 MG (42036 UT) Oral Capsule Take 1 Capsule by mouth in the morning. 0 Active Ipratropium [place] 0.02 % Inhalation Solution (Atrovent) Inhale via [...] Sign Reading Time Taken Comments Blood Pressure 131/78 07/10/2023 1:05 PM EDT Pulse 85 07/10/2023 1:05 PM EDT Temperature 36.8 C (98.3 F) 07/10/2023 1:05 PM ED T Respiratory Rate 18 07/10/2023 1:05 PM EDT Oxygen Saturation - - Inhaled Oxygen Concentration - - Weight - - Height - - Body Mass Index - - documented in this encounter Nursing Notes * Norma Puga RN - 07/10/2023 3:33 PM EDT Goals: Patient will remain free from injury. Possible barriers to meeting goals: ambulation with IV pole, benadryl pretreat may cause drowsiness Stability of the patient: Moderately stable - low risk of patient condition declining or worsening Summary regarding today's goals: Met: Pt remained free of injury during treatment today Patient tolerated treatment well and was discharged in stable condition. Next appointment delayed by 1 week due to at pt request. Coverage by Tamy Weber LPN. * Norma Puga RN - 07/10/2023 1:26 PM EDT Chair 6 Pt arrives for privigen. She states she's doing well, denies any acute concerns today. Safety and Risk for Injury Patient will remain free from injury. Ensure appropriate safety devices are available. Provide and maintain safe environment. IV started in the left hand by Ace Weber LPN without difficulty, good blood return noted, flushed with NSS, fluids infusing. documented in this encounter Plan of Treatment Upcoming Encounters Date Type Specialty Care Team Description 07/22/2023 Office Visit Hematology Oncology Dylon Lilly MD [address] [place] [address] 08/28/2023 Laboratory Laboratory [place], Lab Scenery [address] [place] [address] 08/28/2023 Hem/Onc Treatment Hematology Oncology Scheduled Procedures Name Priority Associated Diagnoses Date/Ti [...] (FLU shot) (#1) 2023 GFR 07/10/2024 07/10/2023, 05/01, 04/17/2023, Additional history exists Colonoscopy 07/10/2026 07/10/2016, [...] (HCC) Hypogammaglobulinaemia, unspecified documented in this encounter Administered Medications Active Administered Medications - up to 3 most recent administrations Medication Order MAR Action Action Date Dose Rate Site diphenhydrAMINE (Benadryl) inj 50 mg 50 mg, IV Push, ONCE PRN Other, Hypersensitivity Reaction, Starting on Fri07/10/23 at 1337, Until Fri07/11/23 at 1336, For 24 hours EPINEPHrine 1 MG/ML inj 0.3 mg 0.3 mg, Intramuscular, ONCE PRN Other, Hypersensitivity Reaction or Anaphylaxis, Starting on Aileen 07/10/23 at 1337, Until Fri07/11/23 at 1336, For 24 hours hEParin 100 UNIT/ML Lock Flush inj 500 Units 500 Units (5 mL), IV Lock, PRN Other, IV Flush, Starting on Aileen 07/10/23 at 1337, Until Fri07/11/23 at 1336, For 24 hours, Do not flush if lock, PICC, or central line not in place; IV infusing or unable to flush. Hydrocortisone Sod Suc (PF) (Solu-Cortef) inj 100 mg 100 mg, IV Push, ONCE PRN Other, Hypersensitivity Reaction, Starting on Aileen 07/10/23 at 1337, Until Fri07/11/23 at 1336, For 24 hours NSS infusion 500 mL, Intravenous, at 50 mL/hr, CONTINUOUS, Starting on Aileen 07/10/23 at 1445, Until Fri07/11/23 at 0044 Start Infusion 07/10/2023 1:30 PM EDT 500 mL 50 mL/hr sodium chloride 0.9 % flush central line 10 mL 10 mL, IV Push, PRN Other, IV Flush, Starting on Aileen 07/10/23 at 1337, Until Fri07/11/23 at 1336, For 24 hours, Do not flush if lock, PICC, or central line not in place; IV infusing or unable to flush. Inactive Administered Medications - up to 3 most recent administrations Medication Order MAR Action Action Date Dose Rate Site Acetaminophen (Tylenol) tab 650 mg 650 mg, Oral, ONCE, On Aileen 07/10/23 at 1445, For 1 dose, Maximum of 4 grams (4000 mg) per day. Given By 07/10/2023 11:45 AM EDT 650 mg diphenhydrAMINE (Benadryl) cap 25 mg 25 mg, Oral, ONCE, On Aileen 07/10/23 at 1445, For 1 dose Given By 07/10/2023 11:45 AM EDT 25 mg Immune Globulin Human- IVIG 10% (Privigen) IV 20 g 20 g, IV Piggyback, ONCE, 1 dose, On Fri07/10/23 at 1515, Infusion Rate VTBI 0.005 mL/kg/min = 19 mL/hour for 15 minutes 5 mL 0.01 mL/kg/min = 38 mL/hour for 15 minutes 10 mL 0.02 mL/kg/min = 77 mL/hour for 15 minutes 19 mL 0.04 mL/kg/min = 153 mL/hour for 15 minutes 38 mL 0.08 mL/kg/min = 307 mL/hour Use this rate until finished 178 mL Infusion duration =1.6 hours Rate Change 07/10/2023 2:45 PM EDT 307 mL/hr Start Infusion 07/10/2023 2:36 PM EDT 20 g 153 mL/hr Immune Globulin Human-IVIG 10% (Privigen) IV 5 g 5 g, IV Piggyback, ONCE, 1 dose, On Aileen 07/10/23 at 1445, Infusion Rate VTBI 0.005 mL/kg/min = 19 mL/hour for 15 minutes 5 mL 0.01 mL/kg/min = 38 mL/hour for 15 minutes 10 mL 0.02 mL/kg/min = 77 mL/hour for 15 minutes 19 mL 0.04 mL/kg/min = 153 mL/hour for 15 minutes 38 mL 0.08 mL/kg/min = 307 mL/hour Use this rate until finished 178 mL Infusion duration =1.6 hours Rate Change 07/10/2023 2:30 PM EDT 153 mL/hr Rate Change 07/10/2023 2:15 PM EDT 77 mL/hr Rate Change 07/10/2023 2:00 PM EDT 38 mL/hr documented in this encounter Care Teams Veneer Redrier Relationship Specialty Start Date End Date Alberto Mcnamara MD [address] [place] [address] PCP - General Internal Medicine 06/25/16 documented as of this encounter
--- OUTSIDE RECORDS SUMMARY | 2023-08-07 22:12 | External Medical Summary | Summary of Care ---
Author Name Unknown Organization [facility] Address [address] [facility] [place] [address] Phone [phone] Care Team Providers Care Environmental Aid Name Role Phone Alberto Mcnamara MD Primary Care Provider [phone] Reason for Visit * Reason Comments IV Therapy IVIG * Episode Based Medications (Routine) - Authorized Specialty Diagnoses / Procedures Referred By Edwin gross Referred To Contact Diagnoses CLL (chronic lymphocytic leukemia) (HCC) Hypogammaglobulinemia (HCC) Procedures ND INJ IVIG PRIVIGEN 500 MG Dylon Lilly MD [address] [place] [address] Anc Hem/Onc [facility] [address] [facility] [place] [address] Referral ID Status Reason Start Date Expiration Date V isits Requested Visits Authorized [id number] Authorized 02/21/2021 09/28/2099 99 99 Encounter Details Date Type Department Care Team Description 05/29/2023 Hem/Onc Treatment Hematology/Oncology Treatment, [place] [address] [place] [address] CLL (chronic lymphocytic leukemia) (HCC)*; Hypogammaglobulinemia (HCC) Allergies Active Allergy Reactions Severity Noted [...] Capsule by mouth at bedtime. 0 Active Rpvlsfd-Xmzpbwmvx-Yeb mack D 500-250-200 MG-MG-UNIT TABS Take by [...] 0 Active Vitamin D (Ergocalciferol) 1.25 MG (50815 UT) Oral Capsule Take 1 Capsule by mouth in the morning. 0 Active Ipratropium [place] 0.02 % Inhalation Solution (Atrovent) Inhale via [...] Sign Reading Time Taken Comments Blood Pressure 128/73 05/29/2023 1:06 PM EDT Pulse 73 05/29/2023 1:06 PM EDT Temperature 36.7 C (98.1 F) 05/29/2023 1:06 PM ED T Respiratory Rate 18 05/29/2023 1:06 PM EDT Oxygen Saturation - - Inhaled Oxygen Concentration - - Weight - - Height - - Body Mass Index - - documented in this encounter Nursing Notes * Anita Stanton RN - 05/29/2023 3:47 PM EDT IVIG infusion is complete. Pt tolerated well. She has no further concerns. Goals: pt to remain free from injury Possible barriers to meeting goals: ambulation with IV pole/tubing Stability of the patient: Moderately stable - low risk of patient condition declining or worsening Summary regarding today's goals: Met: pt remained free from injury Pt discharged in stable condition, assist by Rebecca Puga RN * Anita Stanton RN - 05/29/2023 1:46 PM EDT Ch 7. Pt arrived today for IVIG infusion. Pt has no acute concerns today. She does report that she has been feeling very tired and fatigued and was recently tested for [place], test results negative. Safety and Risk for Injury Patient will remain free from injury. Ensure appropriate safety devices are available. Provide and maintain safe environment. documented in this encounter Plan of Treatment Upcoming Encounters Date Type Specialty Care Team Description 07/10/2023 Hem/Onc Treatment Hematology Oncology [place], Chair 2 Hem Onc Scenery [address] [place] [address] 07/22/2023 Office Visit Hematology Oncology Dylon Lilly MD [address] [place] [address] Scheduled Procedures Name Priority Associated Diagnoses Date/Ti [...] ONCE PRN Other, Hypersensitivity Reaction, Starting on Fri05/29/23 at 1324, Until Fri05/30/23 at 1323, For 24 hours EPINEPHrine 1 MG/ML inj 0.3 mg 0.3 mg, Intramuscular, ONCE PRN Other, Hypersensitivity Reaction or Anaphylaxis, Starting on Fri05/29/23 at 1324, Until Fri05/30/23 at 1323, For 24 hours hEParin 100 UNIT/ML Lock Flush inj 500 Units 500 Units (5 mL), IV Lock, PRN Other, IV Flush, Starting on Aileen 05/29/23 at 1324, Until Fri05/30/23 at 1323, For 24 hours, Do not flush if lock, PICC, or central line not in place; IV infusing or unable to flush. Hydrocortisone Sod Suc (PF) (Solu-Cortef) inj 100 mg 100 mg, IV Push, ONCE PRN Other, Hypersensitivity Reaction, Starting on Fri05/29/23 at 1324, Until Fri05/30/23 at 1323, For 24 hours NSS infusion 500 mL, Intravenous, at 50 mL/hr, CONTINUOUS, Starting on Aileen 05/29/23 at 1430, Until Fri05/30/23 at 0029 Start Infusion 05/29/2023 1:22 PM EDT 500 mL 50 mL/hr sodium chloride 0.9 % flush central line 10 mL 10 mL, IV Push, PRN Other, IV Flush, Starting on Fri05/29/23 at 1324, Until Fri05/30/23 at 1323, For 24 hours, Do not flush if lock, PICC, or central line not in place; IV infusing or unable to flush. Inactive Administered Medications - up to 3 most recent administrations Medication Order MAR Action Action Date Dose Rate Site Acetaminophen (Tylenol) tab 650 mg 650 mg, Oral, ONCE, On Aileen 05/29/23 at 1430, For 1 dose, Maximum of 4 grams (4000 mg) per day. Given 05/29/2023 1:40 PM EDT 650 mg diphenhydrAMINE (Benadryl) cap 25 mg 25 mg, Oral, ONCE, On Aileen 05/29/23 at 1430, For 1 dose Given 05/29/2023 1:40 PM EDT 25 mg Immune Globulin Human- IVIG 10% (Privigen) IV 20 g 20 g, IV Piggyback, ONCE, 1 dose, On Aileen 05/29/23 at 1500, Infusion Rate VTBI 0.005 mL/kg/min = 19 mL/hour for 15 minutes 5 mL 0.01 mL/kg/min = 38 mL/hour for 15 minutes 10 mL 0.02 mL/kg/min = 77 mL/hour for 15 minutes 19 mL 0.04 mL/kg/min = 153 mL/hour for 15 minutes 38 mL 0.08 mL/kg/min = 307 mL/hour Use this rate until finished 178 mL Infusion duration =1.6 hours Rate Change 05/29/2023 2:50 PM EDT 307 mL/hr Rate Change 05/29/2023 2:35 PM EDT 153 mL/hr Start Infusion 05/29/2023 2:28 PM EDT 20 g 153 mL/hr Immune Globulin Human-IVIG 10% (Privigen) IV 5 g 5 g, IV Piggyback, ONCE, 1 dose, On Aileen 05/29/23 at 1430, Infusion Rate VTBI 0.005 mL/kg/min = 19 mL/hour for 15 minutes 5 mL 0.01 mL/kg/min = 38 mL/hour for 15 minutes 10 mL 0.02 mL/kg/min = 77 mL/hour for 15 minutes 19 mL 0.04 mL/kg/min = 153 mL/hour for 15 minutes 38 mL 0.08 mL/kg/min = 307 mL/hour Use this rate until finished 178 mL Infusion duration =1.6 hours Rate Change 05/29/2023 2:20 PM EDT 77 mL/hr Rate Change 05/29/2023 2:05 PM EDT 38 mL/hr Start Infusion 05/29/2023 1:50 PM EDT 5 g 19 mL/hr documented in this encounter Care Teams Environmental Aid Relationship Specialty Start Date End Date Alberto Mcnamara MD [address] [place] [address] PCP - General Internal Medicine 06/25/16 documented as of this encounter
--- OUTSIDE RECORDS SUMMARY | 2023-08-07 22:12 | External Medical Summary ---
Author Name Unknown Address Unknown Organization K09[facility] [place] [address] Laboratory Report Ordering Provider Test Date Status DEVANG RAMÍREZ 05/29/2023 12:07:41 Final Observation Date Value Abnormality Reference (Units ) Status SYNC LEUKOCYTES IN BLOOD BY AUTOMATED COUNT 05/29/2023 12:07:41 4.70 4.00-10.80 (K/uL) Final Segs 05/29/2023 12:07:41 69.2 40.0-75.0 (%) Final Lymphs % 05/29/2023 12:07:41 16.0 Below low normal 18.0-42.0 (%) Final Monos 05/29/2023 12:07:41 12.1 Above high normal 1.0-11.0 (%) Final Eosinophils 05/29/2023 12:07:41 2.1 0.0-6.0 (%) Final Basos 05/29/2023 12:07:41 0.6 0.0-2.0 (%) Final Absolute Segs 05/29/2023 12:07:41 3.25 1.80-7.70 (K/uL) Final Lymphs, absolute 05/29/2023 12:07:41 0.75 Below low normal 1.00-4.80 (K/ul) Final Monos, Abs 05/29/2023 12:07:41 0.57 0.00-1.10 (K/uL) Final Eos, Abs 05/29/2023 12:07:41 0.10 0.00-0.70 (K/uL) Final Basos, Abs 05/29/2023 12:07:41 0.03 0.00-0.20 (K/uL) Final Performing Location [facility] [place] [address]
--- OUTSIDE RECORDS SUMMARY | 2023-08-07 22:12 | External Medical Summary ---
Author Name Unknown Address Unknown Organization K09:[facility] [address] [place] [address] Laboratory Report Ordering Provider Test Date Status DEVANG RAMÍREZ 07/10/2023 12:04:49 Final Observation Date Value Abnormality Reference (Units ) Status WBC, Total 07/10/2023 12:04:49 4.63 4.00-10.8 0 (K/uL) Final RBC 07/10/2023 12:04:49 3.85 3.85-5.15 (M/uL) Final Hemoglobin 07/10/2023 12:04:49 12.1 12.0-15.3 (g/dL) Final HCT 07/10/2023 12:04:49 36.6 36.0-45.2 (%) Final MCV 07/10/2023 12:04:49 95.1 81.5-97.5 (fL) Final MCH 07/10/2023 12:04:49 31.4 27.0-34.0 (pg) Final MCHC 07/10/2023 12:04:49 33.1 32.0-36.0 (g/dL) Final RDW 07/10/2023 12:04:49 13.7 11.5-15.5 (%) Final Platelets 07/10/2023 12:04:49 237 140-400 (K /uL) Final MPV 07/10/2023 12:04:49 9.7 6.6-11.1 ( fL) Final Performing Location [facility] [place] [address]
--- OUTSIDE RECORDS SUMMARY | 2023-08-07 22:12 | External Medical Summary ---
Author Name Unknown Address Unknown Organization [id number]:[facility] [place] [place] [address] Laboratory Report Ordering Provider Test Date Status DEVANG RAMÍREZ 07/10/2023 12:04:49 Final Observation Date Value Abnormality Reference (Units ) Status SYNC LEUKOCYTES IN BLOOD BY AUTOMATED COUNT 07/10/2023 12:04:49 4.63 4.00-10.80 (K/uL) Final Segs 07/10/2023 12:04:49 74.1 40.0-75.0 (%) Final Lymphs % 07/10/2023 12:04:49 13.0 Below low normal 18.0-42.0 (%) Final Monos 07/10/2023 12:04:49 9.5 1.0-11.0 (%) Final Eosinophils 07/10/2023 12:04:49 3.0 0.0-6.0 (%) Final Basos 07/10/2023 12:04:49 0.4 0.0-2.0 (%) Final Absolute Segs 07/10/2023 12:04:49 3.43 1.80-7.70 (K/uL) Final Lymphs, absolute 07/10/2023 12:04:49 0.60 Below low normal 1.00-4.80 (K/ul) Final Monos, Abs 07/10/2023 12:04:49 0.44 0.00-1.10 (K/uL) Final Eos, Abs 07/10/2023 12:04:49 0.14 0.00-0.70 (K/uL) Final Basos, Abs 07/10/2023 12:04:49 0.02 0.00-0.20 (K/uL) Final Performing Location [facility] [place] [address]
--- OUTSIDE RECORDS SUMMARY | 2023-08-07 22:12 | External Medical Summary ---
Author Name Unknown Address Unknown Organization K01:[facility] [place] [address] [place] [address] Laboratory Report Ordering Provider Test Date Status DARRELLAASHISHSIDDIQI 07/10/2023 12:04:49 Final Every 4 months Observation Date Value Abnormality Reference (Units ) Status IgG 07/10/2023 12:04:49 123 889-3179 ( mg/dL) Final IgA 07/10/2023 12:04:49 56 Below low normal 70- 400 (mg/dL) Final IgM 07/10/2023 12:04:49 11 Below low normal 40- 230 (mg/dL) Final Performing Location [facility] - [address] [place] [address]
--- OUTSIDE RECORDS SUMMARY | 2023-08-07 22:12 | External Medical Summary | Summary of Care ---
Author Name Unknown Organization [facility] Address [address] [facility] [place] [address] Phone [phone] Care Team Providers Care Machine Fur Cleaner Name Role Phone Alberto Mcnamara MD Primary Care Provider [phone] Reason for Visit * Reason Comments Nurse Documentation Advance care planlawson gallardo workshop Encounter Details Date Type Department Care Team Description 07/09/2023 Documentation Care Coordination [address] [facility] [place], [place] [id number] Any Grossman, RN [address] [place] [address] Allergies Active Allergy Reactions Severity Noted Date Comments Erythromycin Base 01/12/1998 GI upset Hydrochlorothiazide 03/02/2020 Dabigatran 03/02/2020 Rivaroxaban 03/02/2020 documented as of this encounter (statuses as of 07/09/2023) Medications Medication Sig Dispensed Refills Start Date End Date Status albuterol (PROVENTIL HFA) 108 (90 BASE) MCG/ACT inhaler Inhale 2 Puffs by mouth every 6 hours as needed. 0 Active Cetirizine HCl 10 MG Capsule Take 1 Capsule by mouth daily as needed for Rhinitis. 0 Active Melatonin 3 MG Capsule Take 1 Capsule by mouth at bedtime. 0 Active Yyaitzm-Rocisdyue-Wer mack D 500-250-200 MG-MG-UNIT TABS Take by [...] 0 Active Vitamin D (Ergocalciferol) 1.25 MG (65055 UT) Oral Capsule Take 1 Capsule by mouth in the morning. 0 Active Ipratropium [place] 0.02 % Inhalation Solution (Atrovent) Inhale via [...] as of this encounter (statuses as of 07/09/2023) Active Problems Problem Noted Date CLL (chronic lymphocytic leukemia) 03/03 Hypogammaglobulinemia 03/03/2020 Neutropenia 03/03/2020 BENIGN HYPERTENSION 08/22/1998 FAMILY HX-GI MALIGNANCY 08/22/1998 documented as of this encounter (statuses as of 07/09/2023) Social History Tobacco Use Types Packs/Day Years Used Date Smoking Tobacco: Never Smokeless Tobacco: Never Alcohol Use Standard Drinks/Week Comments Yes 0 (1 standard drink = 0.6 oz pur e alcohol) social Sex Assigned at Date Recorded Not on file Job Start Date Occupation Industry Not on file Not on file Not on file documented as of this encounter Miscellaneous Notes * ACP (Advance Care Planning) - Any Grossman RN - 07/09/2023 3:41 PM EDT Attended ACP group workshop addressing topics below: A. Definition and importance of advance care planning B. Definition of Health care agent and characteristics to consider Willing to accept the role Willing and able to discuss these decisions Willing to follow the choices made even if that person does not agree Able to make decisions and be an advocate in difficult moments C. Things to consider before making decisions or completing documents Exploring experiences Exploring living well Exploring beliefs D. Reviewed decision aids CPR Help with Breathing E. Reviewed Combined Living Will & Healthcare Power of Meter Calibrator Form/ F. Encouraged to schedule or talk with their physician Lashonda attend with her to hear more information about the "living will". All questions answered. documented in this encounter Plan of Treatment Upcoming Encounters Date Type Specialty Care Team Description 07/10/2023 Hem/Onc Treatment Hematology Oncology [place], Chair 2 Hem Onc Scenery [address] [place] [address] 07/22/2023 Office Visit Hematology Oncology Dylon Lilly MD [address] [place] [address] Scheduled Procedures Name Priority Associated Diagnoses Date/Ti [...] Not on filedocumented as of this encounter Care Teams Machine Fur Cleaner Relationship Specialty Start Date End Date Alberto Mcnamara MD [address] [place] [address] PCP - General Internal Medicine 06/25/16 documented as of this encounter
--- OUTSIDE RECORDS SUMMARY | 2023-08-07 22:13 | External Medical Summary | Summary of Care ---
Author Name Unknown Organization [facility] Address [address] [facility] [place] [address] Phone [phone] Care Team Providers Care Review Specialist Name Role Phone Alberto Mcnamara MD Primary Care Provider [phone] Encounter Details Date Type Department Care Team Description 04/14/2023 Orders Only Hematology/Oncology [place] [address] [facility] [place] [address] Murray Banks MD [address] [facility] [place] [address] Allergies Active Allergy Reactions Severity Noted Date Comments Erythromycin Base 01/12/1998 GI upset Hydrochlorothiazide 03/02/2020 Dabigatran 03/02/2020 Rivaroxaban 03/02/2020 documented as of this encounter (statuses as of 04/14/2023) Medications Medication Sig Dispensed Refills Start Date End Date Status albuterol (PROVENTIL HFA) 108 (90 BASE) MCG/ACT inhaler Inhale 2 Puffs by mouth every 6 hours as needed. 0 Active Cetirizine HCl 10 MG Capsule Take 1 Capsule by mouth daily as needed for Rhinitis. 0 Active Melatonin 3 MG Capsule Take 1 Capsule by mouth at bedtime. 0 Active Bdizupl-Fasrlvyjn-Nic mack D 500-250-200 MG-MG-UNIT TABS Take by [...] 0 Active Vitamin D (Ergocalciferol) 1.25 MG (54494 UT) Oral Capsule Take 1 Capsule by mouth in the morning. 0 Active Ipratropium Jadwin 0.02 % Inhalation Solution (Atrovent) Inhale via nebulizer 500 mcg in the morning AND 500 mcg at noon AND 500 mcg in the evening AND 500 mcg before bedtime. 0 Active NATURAL SUPPLEMENT Take by mouth daily . 0 Active Rivaroxaban 20 MG Oral Tablet (Xarelto) Take 1 Tablet by mouth daily with dinner. 0 Active traMADol HCl 50 MG Oral Tablet (Ultram) Take 1 Tablet by mouth every 6 hours as needed. 0 Active LORazepam 0.5 MG Oral Tablet (Ativan) Take 1 Tablet by mouth every 8 hours as needed for Anxiety or Sleep. 0 Active Sertraline HCl 50 MG Oral Tablet (Zoloft) Take 1 Tablet by mouth in the morning. 0 Active documented as of this encounter (statuses as of 04/14/2023) Active Problems Problem Noted Date CLL (chronic lymphocytic leukemia) 03/03 Hypogammaglobulinemia 03/03/2020 Neutropenia 03/03/2020 BENIGN HYPERTENSION 08/22/1998 FAMILY HX-GI MALIGNANCY 08/22/1998 documented as of this encounter (statuses as of 04/14/2023) Social History Tobacco Use Types Packs/Day Years [...] Encounters Date Type Specialty Care Team Description 04/17/2023 Laboratory Laboratory [place], Lab Scenery [address] [place] [address] 04/17/2023 Office Visit Hematology Oncology Keira Mcintosh CRNP [address] [facility] [place] [address] 04/17/2023 Hem/Onc Treatment Hematology Oncology Scheduled Procedures Name [...] Influenza Vaccine (FLU shot) (#1) 2023 GFR 03/06/2024 03/06/2023, 12/29, 09/19/2022, Additional history exists Colonoscopy 07/10/2026 07/10/2016, 06/29, [...] filedocumented as of this encounter Care Teams Review Specialist Relationship Specialty Start Date End Date Alberto Mcnamara MD [address] [place] [address] PCP - General Internal Medicine 06/25/16 documented as of this encounter
--- OUTSIDE RECORDS SUMMARY | 2023-08-07 22:13 | External Medical Summary ---
Author Name Unknown Address Unknown Organization K09:[facility] [place] [place] [address] Laboratory Report Ordering Provider Test Date Status DEVANG RAMÍREZ 03/06/2023 09:59:04 Final Observation Date Value Abnormality Reference (Units ) Status SYNC LEUKOCYTES IN BLOOD BY AUTOMATED COUNT 03/06/2023 09:59:04 4.57 4.00-10.80 (K/uL) Final Segs 03/06/2023 09:59:04 67.1 40.0-75.0 (%) Final Lymphs % 03/06/2023 09:59:04 18.2 18.0-42.0 (%) Final Monos 03/06/2023 09:59:04 11.8 Above high normal 1.0-11.0 (%) Final Eosinophils 03/06/2023 09:59:04 2.2 0.0-6.0 (%) Final Basos 03/06/2023 09:59:04 0.7 0.0-2.0 (%) Final Absolute Segs 03/06/2023 09:59:04 3.07 1.80-7.70 (K/uL) Final Lymphs, absolute 03/06/2023 09:59:04 0.83 Below low normal 1.00-4.80 (K/ul) Final Monos, Abs 03/06/2023 09:59:04 0.54 0.00-1.10 (K/uL) Final Eos, Abs 03/06/2023 09:59:04 0.10 0.00-0.70 (K/uL) Final Basos, Abs 03/06/2023 09:59:04 0.03 0.00-0.20 (K/uL) Final Performing Location [facility] [place] [place] [address]
--- OUTSIDE RECORDS SUMMARY | 2023-08-07 22:13 | External Medical Summary | Continuity of Care Document ---
Author Name Unknown Organization [facility] [address] [facility] [address] [id number] Care Team Providers Care Dock Worker Name Role Phone Alberto Mcnamara Primary Care Physician [phone] [id number] Date[facility] 03/19/23 - 03/19/23 [facility] [address] [facility] [address] [place] [address] [place] [address] [id number] Encounter Diagnosis Lentigo(Discharge Diagnosis) - 03/19/23 Discharge Disposition: Home or Self Care Attending Physician: MD Perdue David L Referring Physician: MD Perdue David L Allergies, Adverse Reactions, Alerts Substance Reaction Severity Status erythromycin Abdominal pain Active chlorothiazide dizzy and nauseated Active Allergy Not found in Search seasonal allergies-asthma symptoms Active Pradaxa skin peels Active Assessment and Plan Extracted from: Title:Clinical Document Author:MD Perdue David L Date:03/19/23 OUTPATIENT NOTE Name: ALEC RODRIGUEZ Patient Number:[id number] : 1950 Date of Service: 03/19/2023 _ Ms Rodriguez comes in for recheck. She notes irritated lesion in the left angle of the mouth. She does use sun protection. She did undergo aware of any lesions. She has no prior history of skin cancer. Of note her has Alzheimer's disease. Physical examination: She is a well-developed well-nourished white female type II skin. Alert and oriented x3. Examination face ears neck back chest hands arms legs and feet reveal some fajardo macules on the face but there is no abnormalities on the trunk. She has a 3 mm flesh-colored pedunculated papule left angle of the mouth. Impression: #1 lentigos. #2 no evidence for atypical nevi or skin cancer. #3 acrochordon on the left angle of mouth. Plan: Reassurance. Sun protection was stressed. She will return for recheck in 1 year on a as needed basis. Medications allopurinol 300 mg oral tablet Start: 03/15/20 8:33:00 EDT, 1 tab, PO, Daily Start Date: 03/15/20 Status: Ordered Ambien 5 mg oral tablet Start: 11/27/20 11:04:00 EST, 1 tab, PO, qhs, PRN: as needed for sleep Start Date: 11/27/20 Status: Ordered Calcium 600+D Plus Minerals Start: 03/15/20 8:39:00 EDT Start Date: 03/15/20 Status: Ordered Eliquis 5 mg oral tablet TAKE 1 TABLET BY MOUTH TWICE DAILY Start Date: 03/15/20 Status: Ordered ethambutol 400 mg oral tablet TAKE 2 TABLETS BY MOUTH 3 TIMES WEEKLY, GIVE WITH FOOD ( MEAL/SNACK)\ Start Date: 03/15/20 Status: Ordered flecainide 50 mg oral tablet TAKE 1 TABLET BY MOUTH EVERY 12 HOURS Start Date: 03/15/20 Status: Ordered furosemide 20 mg oral tablet TAKE 1 TABLET BY MOUTH 6 TIMES A WEEK (every day but Friday) Start Date: 03/15/20 Status: Ordered Gammagard S/D 5 g intravenous injection Start: 03/15/20 8:37:00 EDT, 300 mg/kg =, IV, [id number] Start Date: 03/15/20 Status: Ordered Klor-Con 10 oral tablet, extended release TAKE 1 TABLET BY MOUTH DAILY ON FRIDAY, FRIDAY, AND FRIDAY [id number] Start Date: 03/15/20 Status: Ordered Metoprolol Tartrate 25 mg oral tablet TAKE 3 TABLETS BY MOUTH DAILY Start Date: 03/15/20 Status: Ordered multivitamin Start: 03/15/20 8:40:00 EDT, 1 tab, PO, Daily Start Date: 03/15/20 Status: Ordered Neupogen 300 mcg/mL injectable solution Start: 03/15/20 8:36:00 EDT, prn Start Date: 03/15/20 Status: Ordered Probiotic Formula Start: 03/15/20 8:39:00 EDT Start Date: 03/15/20 Status: Ordered rivaroxaban 20 mg oral tablet Start: 03/19/23 9:31:00 EDT Start Date: 03/19/23 Status: Ordered sertraline 50 mg oral tablet Start: 03/19/23 9:31:00 EDT Start Date: 03/19/23 Status: Ordered triamcinolone 0.1% topical cream Start: 03/16/21 9:09:00 EDT, 1 appl, topical, bid, Disp# 80 g, Refills: 3, apply to legs, Pharmacy:[facility]/pharmacy #[id number] Start Date: 03/16/21 Status: Ordered turmeric 500 mg oral capsule Start: 03/15/20 8:42:00 EDT Start Date: 03/15/20 Status: Ordered Ventolin HFA 90 mcg/inh inhalation aerosol Start: 03/15/20 8:37:00 EDT, 2 puff, inhaled, qid, PRN: as needed for wheezing Start Date: 03/15/20 Status: Ordered Vitamin B Complex Start: 03/15/20 8:41:00 EDT Start Date: 03/15/20 Status: Ordered Vitamin C Start: 03/15/20 8:40:00 EDT Start Date: 03/15/20 Status: Ordered ZyrTEC 10 mg oral tablet Start: 03/15/20 8:38:00 EDT, 1 tab, PO, Daily, PRN: as needed for allergy symptoms Start Date: 03/15/20 Status: Ordered Mental Status 03/19/23 Barriers to Learning one year None evide nt Mandatory Health Literacy Documentation Yes Health Literacy Communication Barriers N ever Primary Language Mauritian Problem List Condition Confirmation Course Effective Dates Status Health St at Informant Actinic keratosis Confirmed Active Actinic Keratosis Confirmed 12/14/12 Active Asthma Confirmed Active CLL (chronic lymphocytic leukemia) Confirmed Active CTS (carpal tunnel syndrome) 1 Confirmed Active Family history of melanoma Confirmed Active HTN (hypertension) Confirmed Active HTN (hypertension) Confirmed Active Lentigo Confirmed Active Other Dyschromia Confirmed 12/14/12 Active Shoulder pain 2 Confirmed Active Upper extremity pain 3 Confirmed Active 1B/L 2right 3B/L Diagnosis Diagnosis Type Effective Dates Health Status Clini adolfo Service Informant Lentigo Discharge Diagnosis 03/19/23 Procedures Procedure Date Related Diagnosis Body Site Status ORIF - Open reduction and in ternal fixation of fracture 10/09/21 Completed Pacemaker care 06/2020 Completed Shave biopsy of skin 1 03/11/19 Co mpleted CTR - Carpal tunnel release 01/10/11 Completed Appendectomy Completed foot surgery Completed Hammer toe 2 Completed Hysterectomy Completed Tonsillectomy Completed 1mid sternal chest 2B/L Social History Social History Type Response Smoking Status Never smoked cigaret alphonso Sex Female Outpatient Note * MD Iron, Med [place]: PERFORM Event Display: .Outpt Note Authored Date: [id number] OUTPATIENT NOTE Name: ALEC RODRIGUEZ Patient Number:[id number] : 1950 Date of Service: 03/19/2023 _ Ms Rodriguez comes in for recheck. She notes irritated lesion in the left angle of the mouth. She doesuse sun protection. She did undergo aware of any lesions. She has no prior history of skin cancer. Of note her has Alzheimer's disease. Physical examination: She is a well-developed well-nourished white female type II skin. Alert and oriented x3. Examination face ears neck back chest hands arms legs and feet reveal some fajardo macules on the face but there is no abnormalities on the trunk. She has a 3 mm flesh-colored pedunculated papule left angle of the mouth. Impression: #1 lentigos. #2 no evidence for atypical nevi or skin cancer. #3 acrochordon on the left angle of mouth. Plan: Reassurance. Sun protection was stressed.She will return for recheck in 1 year on a as needed basis. Electronic Signature on File Electronically Reviewed/Signed by: Med Perdue MD Author Signature Dt/Tm:03/19/2023 09:50 AM Department of Dermatology DLS Patient Care team information Care Team Personnel Name: MD Mcnamara Paul Position: Referring DIRECT Member Role: Primary Care Provider Address: Address: [address] [facility] [address] [place] [address] Care Team Related Persons Name: KAYLEE RODRIGUEZ Address: home [address] [facility] [place] [phone] Name: JANINA MCKENZIE Name: JANINA MCKENZIE Address: home [address] [place] [phone]
--- OUTSIDE RECORDS SUMMARY | 2023-08-07 22:13 | External Medical Summary | Summary of Care ---
Author Name Unknown Organization [facility] Address [address] [facility] [place] [address] Phone [phone] Care Team Providers Care Talent Management Specialist Name Role Phone Alberto Mcnamara MD Primary Care Provider [phone] Reason for Visit * Reason Comments Infusion IVIG * Episode Based Medications (Routine) - Authorized Specialty Diagnoses / Procedures Referred By Contmaty t Referred To Contact Diagnoses CLL (chronic lymphocytic leukemia) (HCC) Hypogammaglobulinemia (HCC) Procedures UT INJ IVIG PRIVIGEN 500 MG Dylon Lilly MD [address] [place] [address] Anc Hem/Onc [facility] [address] [facility] [place] [address] Referral ID Status Reason Start Date Expiration Date V isits Requested Visits Authorized [id number] Authorized 02/21/2021 09/28/2099 99 99 Encounter Details Date Type Department Care Team Description 04/17/2023 Hem/Onc Treatment Hematology/Oncology Treatment, [place] [address] [place] [address] CLL (chronic lymphocytic leukemia) (HCC)*; Hypogammaglobulinemia (HCC) Allergies Active Allergy Reactions Severity Noted Date Comments Erythromycin Base 01/12/1998 GI upset Hydrochlorothiazide 03/02/2020 Dabigatran 03/02/2020 Rivaroxaban 03/02/2020 documented as of this encounter (statuses as of 04/17/2023) Medications Medication Sig Dispensed Refills Start Date End Date Status albuterol (PROVENTIL HFA) 108 (90 BASE) MCG/ACT inhaler Inhale 2 Puffs by mouth every 6 hours as needed. 0 Active Cetirizine HCl 10 MG Capsule Take 1 Capsule by mouth daily as needed for Rhinitis. 0 Active Melatonin 3 MG Capsule Take 1 Capsule by mouth at bedtime. 0 Active Iuhdxmj-Arqppeerb-Zdz mack D 500-250-200 MG-MG-UNIT TABS Take by [...] 0 Active Vitamin D (Ergocalciferol) 1.25 MG (85179 UT) Oral Capsule Take 1 Capsule by mouth in the morning. 0 Active Ipratropium [place] 0.02 % Inhalation Solution (Atrovent) Inhale via [...] as of this encounter (statuses as of 04/17/2023) Active Problems Problem Noted Date CLL (chronic lymphocytic leukemia) 03/03 Hypogammaglobulinemia 03/03/2020 Neutropenia 03/03/2020 BENIGN HYPERTENSION 08/22/1998 FAMILY HX-GI MALIGNANCY 08/22/1998 documented as of this encounter (statuses as of 04/17/2023) Social History Tobacco Use Types Packs/Day Years Used Date Smoking Tobacco: Never Smokeless Tobacco: Never Alcohol Use Standard Drinks/Week Comments Yes 0 (1 standard drink = 0.6 oz pur e alcohol) social Sex Assigned at Date Recorded Not on file Job Start Date Occupation Industry Not on file Not on file Not on file documented as of this encounter Nursing Notes * Gely Maldonado RN - 04/17/2023 12:47 PM EDT Goals: Patient will remain free from injury. Possible barriers to meeting goals: risk for falls r/t ambulating with IV pole Stability of the patient: Moderately stable - low risk of patient condition declining or worsening Summary regarding today's goals: Met: pt remained free from falls and injuyr Pt discharged in stable condition. * Gely Maldonado RN - 04/17/2023 10:18 AM EDT Chair 2 Patient had OV with Loulou IRVIN. She is OK for treatment today. PIV started in L forearm 24 G. NSinfusion started. Loulou IRVIN wants her to be seen in clinic for OV again in 3 months. Pt has no complaints. Safety and Risk for Injury Patient will remain free from injury. Ensure appropriate safety devices are available. Provide and maintain safe environment. documented in this encounter Plan of Treatment Upcoming Encounters Date Type Specialty Care Team Description 05/29/2023 Laboratory Laboratory [place], Lab Scenery [address] [facility] [place] [address] 05/29/2023 Hem/Onc Treatment Hematology Oncology 07/22/2023 Office Visit Hematology Oncology Dylon Lilly MD [address] [place] [address] Scheduled Procedures Name Priority Associated Diagnoses Date/Ti [...] PRN Other, Hypersensitivity Reaction, Starting on Aileen 04/17/23 at 1015, Until Fri04/18/23 at 1014, For 24 hours EPINEPHrine 1 MG/ML inj 0.3 mg 0.3 mg, Intramuscular, ONCE PRN Other, Hypersensitivity Reaction or Anaphylaxis, Starting on Fri04/17/23 at 1015, Until Fri04/18/23 at 1014, For 24 hours hEParin 100 UNIT/ML Lock Flush inj 500 Units 500 Units (5 mL), IV Lock, PRN Other, IV Flush, Starting on Aileen 04/17/23 at 1015, Until Fri04/18/23 at 1014, For 24 hours, Do not flush if lock, PICC, or central line not in place; IV infusing or unable to flush. Hydrocortisone Sod Suc (PF) (Solu-Cortef) inj 100 mg 100 mg, IV Push, ONCE PRN Other, Hypersensitivity Reaction, Starting on Fri04/17/23 at 1015, Until Fri04/18/23 at 1014, For 24 hours NSS infusion 500 mL, Intravenous, at 50 mL/hr, CONTINUOUS, Starting on Aileen 04/17/23 at 1115, Until Fri04/17/23 at 2114 Start Infusion 04/17/2023 10:17 AM EDT 500 mL 50 mL/hr sodium chloride 0.9 % flush central line 10 mL 10 mL, IV Push, PRN Other, IV Flush, Starting on Fri04/17/23 at 1015, Until Fri04/18/23 at 1014, For 24 hours, Do not flush if lock, PICC, or central line not in place; IV infusing or unable to flush. Inactive Administered Medications - up to 3 most recent administrations Medication Order MAR Action Action Date Dose Rate Site Acetaminophen (Tylenol) tab 650 mg 650 mg, Oral, ONCE, On Aileen 04/17/23 at 1115, For 1 dose, Maximum of 4 grams (4000 mg) per day. Given 04/17/2023 10:17 AM EDT 650 mg diphenhydrAMINE (Benadryl) cap 25 mg 25 mg, Oral, ONCE, On Aileen 04/17/23 at 1115, For 1 dose Given 04/17/2023 10:17 AM EDT 25 mg Immune Globulin Human- IVIG 10% (Privigen) IV 20 g 20 g, IV Piggyback, ONCE, 1 dose, On Aileen 04/17/23 at 1145, Infusion Rate VTBI 0.005 mL/kg/min = 19 mL/hour for 15 minutes 5 mL 0.01 mL/kg/min = 38 mL/hour for 15 minutes 10 mL 0.02 mL/kg/min = 77 mL/hour for 15 minutes 19 mL 0.04 mL/kg/min = 153 mL/hour for 15 minutes 38 mL 0.08 mL/kg/min = 307 mL/hour Use this rate until finished 178 mL Infusion duration =1.6 hours Start Infusion 04/17/2023 11:27 AM EDT 20 g 153 mL/hr Immune Globulin Human-IVIG 10% (Privigen) IV 5 g 5 g, IV Piggyback, ONCE, 1 dose, On Aileen 04/17/23 at 1115, Infusion Rate VTBI 0.005 mL/kg/min = 19 mL/hour for 15 minutes 5 mL 0.01 mL/kg/min = 38 mL/hour for 15 minutes 10 mL 0.02 mL/kg/min = 77 mL/hour for 15 minutes 19 mL 0.04 mL/kg/min = 153 mL/hour for 15 minutes 38 mL 0.08 mL/kg/min = 307 mL/hour Use this rate until finished 178 mL Infusion duration =1.6 hours Rate Change 04/17/2023 11:25 AM EDT 153 mL/hr Rate Change 04/17/2023 11:10 AM EDT 77 mL/hr Rate Change 04/17/2023 10:54 AM EDT 38 mL/hr documented in this encounter Care Teams Talent Management Specialist Relationship Specialty Start Date End Date Alberto Mcnamara MD [address] [place] [address] PCP - General Internal Medicine 06/25/16 documented as of this encounter
--- OUTSIDE RECORDS SUMMARY | 2023-08-07 22:13 | External Medical Summary ---
Author Name Unknown Address Unknown Organization [id number]:[facility] [address] [place] [address] Laboratory Report Ordering Provider Test Date Status DEVANG RAMÍREZ 04/17/2023 08:35:53 Final Observation Date Value Abnormality Reference (Units ) Status BUN 04/17/2023 08:35:53 11 6-20 (mg/dL) Final Creatinine 04/17/2023 08:35:53 0.7 0.5-1.0 (mg/dL) Final Glomerular filtration rate/1.73 sq M.predicted [Volume Rate/Area] in Serum, Plasma or Blood by Creatinine-based formula (CKD-EPI) 04/17/2023 08:35:53 >90 >=60 (mL/min) Final eGFR is calculated based on the CKD-EPI 2020 equation SODIUM 04/17/2023 08:35:53 129 Below low normal 135 -146 (mmol/L) Final Potassium 04/17/2023 08:35:53 4.3 3.5-5.1 (m mol/L) Final Cl 04/17/2023 08:35:53 94 Below low normal 98- 107 (mmol/L) Final CO2 04/17/2023 08:35:53 27 22-32 (mmo l/L) Final Anion gap 04/17/2023 08:35:53 8 7-15 (mmol /L) Final Glucose 04/17/2023 08:35:53 93 70-120 (mg /dL) Final Albumin 04/17/2023 08:35:53 4.5 3.8-5.0 (g /dL) Final AST (Aspartate aminotransferase) 04/17/2023 08:35:53 22 10-35 (U/L) Fin al Alk Phos 04/17/2023 08:35:53 85 35-130 (U/ L) Final Bilirubin, Total 04/17/2023 08:35:53 0.4 <=1 .2 (mg/dL) Final Calcium 04/17/2023 08:35:53 9.6 8.4-10.2 ( mg/dL) Final Protein 04/17/2023 08:35:53 7.1 6.0-8.3 (g /dL) Final ALT (Alanine aminotransferase) 04/17/2023 08:35:53 12 10-35 (U/L) Eduardo romero Performing Location [facility] [address] [place] [address]
--- OUTSIDE RECORDS SUMMARY | 2023-08-07 22:13 | External Medical Summary ---
Author Name Unknown Address Unknown Organization [id number]:[facility] [address] [place] [address] Laboratory Report Ordering Provider Test Date Status DEVANG RAMÍREZ 03/06/2023 09:59:04 Final Observation Date Value Abnormality Reference (Units ) Status BUN 03/06/2023 09:59:04 8 6-20 (mg/dL) Final Creatinine 03/06/2023 09:59:04 0.7 0.5-1.0 (mg/dL) Final Glomerular filtration rate/1.73 sq M.predicted [Volume Rate/Area] in Serum, Plasma or Blood by Creatinine-based formula (CKD-EPI) 03/06/2023 09:59:04 88 >=60 (mL/min) Final eGFR is calculated based on the CKD-EPI 2020 equation SODIUM 03/06/2023 09:59:04 127 Below low normal 135 -146 (mmol/L) Final Potassium 03/06/2023 09:59:04 4.5 3.5-5.1 (m mol/L) Final Cl 03/06/2023 09:59:04 90 Below low normal 98- 107 (mmol/L) Final CO2 03/06/2023 09:59:04 27 22-32 (mmo l/L) Final Anion gap 03/06/2023 09:59:04 10 7-15 (mmol /L) Final Glucose 03/06/2023 09:59:04 86 70-120 (mg /dL) Final Albumin 03/06/2023 09:59:04 4.4 3.8-5.0 (g /dL) Final AST (Aspartate aminotransferase) 03/06/2023 09:59:04 27 10-35 (U/L) Fin al Alk Phos 03/06/2023 09:59:04 83 35-130 (U/ L) Final Bilirubin, Total 03/06/2023 09:59:04 0.6 <=1 .2 (mg/dL) Final Calcium 03/06/2023 09:59:04 9.5 8.4-10.2 ( mg/dL) Final Protein 03/06/2023 09:59:04 6.6 6.0-8.3 (g /dL) Final ALT (Alanine aminotransferase) 03/06/2023 09:59:04 47 Above high normal 10-35 (U/L) Final Performing Location [facility] [address] [place] [address]
--- OUTSIDE RECORDS SUMMARY | 2023-08-07 22:13 | External Medical Summary ---
Author Name Unknown Address Unknown Organization K09:[facility] [place] [address] Laboratory Report Ordering Provider Test Date Status DEVANG RAMÍREZ 03/06/2023 09:59:04 Final Observation Date Value Abnormality Reference (Units ) Status WBC, Total 03/06/2023 09:59:04 4.57 4.00-10.8 0 (K/uL) Final RBC 03/06/2023 09:59:04 3.86 3.85-5.15 (M/uL) Final Hemoglobin 03/06/2023 09:59:04 12.0 12.0-15.3 (g/dL) Final HCT 03/06/2023 09:59:04 37.2 36.0-45.2 (%) Final MCV 03/06/2023 09:59:04 96.4 81.5-97.5 (fL) Final MCH 03/06/2023 09:59:04 31.1 27.0-34.0 (pg) Final MCHC 03/06/2023 09:59:04 32.3 32.0-36.0 (g/dL) Final RDW 03/06/2023 09:59:04 12.6 11.5-15.5 (%) Final Platelets 03/06/2023 09:59:04 270 140-400 (K /uL) Final MPV 03/06/2023 09:59:04 9.3 6.6-11.1 ( fL) Final Performing Location [facility] [place] [address]
--- OUTSIDE RECORDS SUMMARY | 2023-08-07 22:13 | External Medical Summary | Summary of Care ---
Author Name Unknown Organization [facility] Address [address] [facility] [place] [address] Phone [phone] Care Team Providers Care Space Operations Officer Name Role Phone Alberto Mcnamara MD Primary Care Provider Reason for Visit * Reason Comments Outpatient Testing Encounter Details Date Type Department Care Team Description 04/17/2023 Laboratory Laboratory [place] [address] [place] [phone] [place], Lab Scenery [address] [facility] [place] [address] Hypogammaglobulinemia (HCC); CLL (chronic lymphocytic leukemia) ([facility]) Allergies Active Allergy Reactions Severity [...] Capsule by mouth at bedtime. 0 Active Rakfgyj-Apcfpuovd-Esf mack D 500-250-200 MG-MG-UNIT TABS Take by [...] (COMPAZINE) 10 MG TabletIndications:CLL (chronic lymphocytic leukemia) ([facility]),Hypogammaglobul inemia (HCC) Take 1 Tab by mouth every 6 hours as needed for Nausea. 60 Tab 2 03/23/2020 Active Vitamin B-12 500 MCG Oral Tablet (vitamin B-12) Take 1 Tablet by mouth in the morning. 0 Active Zolpidem Tartrate 10 MG Oral Tablet (Ambien) Take 10 mg by mouth at bedtime as needed for Sleep. 0 Active Vitamin D (Ergocalciferol) 1.25 MG (39690 UT) Oral Capsule Take 1 Capsule by mouth in the morning. 0 Active Ipratropium [place] 0.02 % Inhalation Solution (Atrovent) Inhale via [...] Date Type Specialty Care Team Description 04/17/2023 Office Visit Hematology Oncology Keira Mcintosh CRNP [address] [place] [address] PENDING VISIT DRAFT 04/17/2023 Hem/Onc Treatment Hematology Oncology Arrived Pending Results Name Type Priority Associated Diagnoses Date /Time COMPREHENSIVE METABOLIC PANEL Lab STAT Hypogammaglobulinemia (HCC) CLL (chronic lymphocytic leukemia) (HCC) 04/17/2023 8:35 AM EDT Scheduled Procedures Name Priority Associated Diagnoses [...] Date/Time Associated Diagnosis Comments DIFFERENTIAL, AUTOMATED STAT 04/17/2023 8:35 AM EDT Hypogammaglobulinem ia (HCC) CLL (chronic lymphocytic leukemia) (HCC) CBC WITH WBC DIFFERENTIAL STAT 04/17/2023 8:35 AM EDT Hypogammaglobulinem ia (HCC) CLL (chronic lymphocytic leukemia) (HCC) CBC STAT 04/17/2023 8:35 AM EDT Hypogammaglobulinem ia (HCC) CLL (chronic lymphocytic leukemia) (HCC) documented in this encounter Results * (ABNORMAL) DIFFERENTIAL, AUTOMATED (04/17/2023 8:35 AM EDT) WBC 4.08 4.00 - 10.80 K/uL 04/17/2023 8:44 AM EDT [facility]-02 Neutrophils % 68.8 40.0 - 75.0 % 04/17/2023 8:44 AM EDT [facility] 56-02 Lymphocytes % 16.4(L) 18.0 - 42.0 % 04/17/2023 8:44 AM EDT [facility] 56-02 Monocytes % 11.8(H) 1.0 - 11.0 % 04/17/2023 8:44 AM EDT [facility] 56-02 Eosinophils % 2.5 0.0 - 6.0 % 04/17/2023 8:44 AM EDT [facility]-02 Basophils % 0.5 0.0 - 2.0 % 04/17/2023 8:44 AM EDT [facility]-[address] Absolute Neutrophils 2.81 1.80 - 7.70 K/uL 04/17/2023 8:44 AM EDT [facility] Absolute Lymphocytes 0.67(L) 1.00 - 4.80 K/ul 04/17/2023 8:44 AM EDT [facility] Absolute Monocytes 0.48 0.00 - 1.10 K/uL 04/17/2023 8:44 AM EDT [facility] 56 Absolute Eosinophils 0.10 0.00 - 0.70 K/uL 04/17/2023 8:44 AM EDT [facility] Absolute Basophils 0.02 0.00 - 0.20 K/uL 04/17/2023 8:44 AM EDT [facility] Blood Venous blood specimen / Unknown Venipuncture / Unknown 04/17/2023 8:35 AM EDT 04/17/2023 8:35 AM EDT Dylon Lilly MD LAB BLOOD ORDERABLES [facility] [address] [place] [address] * CBC (04/17/2023 8:35 AM EDT) WBC 4.08 4.00 - 10.80 K/uL 04/17/2023 8:44 AM EDT [facility] RBC 3.94 3.85 - 5.15 M/uL 04/17/2023 8:44 AM EDT [facility] HGB 12.3 12.0 - 15.3 g/dL 04/17/2023 8:44 AM EDT [facility] HCT 37.0 36.0 - 45.2 % 04/17/2023 8:44 AM EDT [facility] MCV 93.9 81.5 - 97.5 fL 04/17/2023 8:44 AM EDT [facility] MCH 31.2 27.0 - 34.0 pg 04/17/2023 8:44 AM EDT [facility] MCHC 33.2 32.0 - 36.0 g/dL 04/17/2023 8:44 AM EDT [facility] RDW 12.9 11.5 - 15.5 % 04/17/2023 8:44 AM EDT [facility] PLT 207 140 - 400 K/uL 04/17/2023 8:44 AM EDT [facility] MPV 9.9 6.6 - 11.1 fL 04/17/2023 8:44 AM EDT [facility] Blood Venous blood specimen / Unknown Venipuncture / Unknown 04/17/2023 8:35 AM EDT 04/17/2023 8:35 AM EDT Dylon Lilly MD LAB BLOOD ORDERABLES [facility] [address] [place] [address] documented in this encounter Visit Diagnoses Diagnosis Hypogammaglobulinemia (HCC) Hypogammaglobulinaemia, unspecified CLL (chronic lymphocytic leukemia) (HCC) Chronic lymphoid leukemia, without mention of having achieved remission documented in this encounter Care Teams Space Operations Officer Relationship Specialty Start Date End Date Alberto Mcnamara MD [address] [place] [address] PCP - General Internal Medicine 06/25/16 documented as of this encounter
--- OUTSIDE RECORDS SUMMARY | 2023-08-07 22:13 | External Medical Summary | Summary of Care ---
Author Name Unknown Organization [facility] Address [address] [facility] [place] [address] Phone [phone] Care Team Providers Care Vpk Teacher Name Role Phone Alberto Mcnamara MD Primary Care Provider [phone] Reason for Visit * Reason Comments IV Therapy IVIG * Episode Based Medications (Routine) - Authorized Specialty Diagnoses / Procedures Referred By Edwin gross Referred To Contact Diagnoses CLL (chronic lymphocytic leukemia) (HCC) Hypogammaglobulinemia (HCC) Procedures TX INJ IVIG PRIVIGEN 500 MG Dylon Lilly MD [address] [place] [address] Anc Hem/Onc [address] [place] [address] Referral ID Status Reason Start Date Expiration Date V isits Requested Visits Authorized [id number] Authorized 02/21/2021 09/28/2099 99 99 Encounter Details Date Type Department Care Team Description 03/06/2023 Hem/Onc Treatment Hematology/Oncology Treatment, [address] [place] [address] CLL (chronic lymphocytic leukemia) (HCC)*; Hypogammaglobulinemia (HCC) Allergies Active Allergy Reactions Severity Noted Date Comments Erythromycin Base 01/12/1998 GI upset Hydrochlorothiazide 03/02/2020 Dabigatran 03/02/2020 Rivaroxaban 03/02/2020 documented as of this encounter (statuses as of 03/06/2023) Medications Medication Sig Dispensed Refills Start Date End Date Status albuterol (PROVENTIL HFA) 108 (90 BASE) MCG/ACT inhaler Inhale 2 Puffs by mouth every 6 hours as needed. 0 Active Cetirizine HCl 10 MG Capsule Take 1 Capsule by mouth daily as needed for Rhinitis. 0 Active Melatonin 3 MG Capsule Take 1 Capsule by mouth at bedtime. 0 Active Eiqztpt-Tsvwlinak-Wne mack D 500-250-200 MG-MG-UNIT TABS Take by [...] 0 Active Vitamin D (Ergocalciferol) 1.25 MG (28161 UT) Oral Capsule Take 1 Capsule by mouth in the morning. 0 Active Ipratropium [place] 0.02 % Inhalation Solution (Atrovent) Inhale via [...] as of this encounter (statuses as of 03/06/2023) Active Problems Problem Noted Date CLL (chronic lymphocytic leukemia) 03/03 Hypogammaglobulinemia 03/03/2020 Neutropenia 03/03/2020 BENIGN HYPERTENSION 08/22/1998 FAMILY HX-GI MALIGNANCY 08/22/1998 documented as of this encounter (statuses as of 03/06/2023) Social History Tobacco Use Types Packs/Day Years [...] Sign Reading Time Taken Comments Blood Pressure 160/92 03/06/2023 11:48 AM EDT Pulse 71 03/06/2023 11:48 AM EDT Temperature 36.4 C (97.5 F) 03/06/2023 10:51 AM E DT Respiratory Rate 18 03/06/2023 11:48 AM EDT Oxygen Saturation - - Inhaled Oxygen Concentration - - Weight 73 kg (161 lb) 03/06/2023 10:51 AM EDT Height - - Body Mass Index 31.44 03/02/2020 12:04 PM EDT documented in this encounter Nursing Notes * Gely Maldonado RN - 03/06/2023 1:08 PM EDT Goals: Patient will remain free from injury. Possible barriers to meeting goals: risk for falls r/t ambulating with walker and IV pole Stability of the patient: Moderately stable - low risk of patient condition declining or worsening Summary regarding today's goals: Met: pt remained free from injury Pt discharged in stable condition. * Gely Maldonado RN - 03/06/2023 10:52 AM EDT Chair 7 Patient presents to the clinic today for IVIG. Patient has had low sodium, reviewed with Dr Lilly, he is OK for treatment today. Safety and Risk for Injury Patient will remain free from injury. Ensure appropriate safety devices are available. Provide and maintain safe environment. Pt's BP remains elevated, manual check of 160/92. She does have a headache. She was on the phone with area on aging because of her and it has her very stressed out. He has progressing dementia and she is having a difficult time with it. documented in this encounter Plan of Treatment Upcoming Encounters Date Type Specialty Care Team Description 04/17/2023 Laboratory Laboratory [place], Lab Scenery [address] [facility] [place] [address] 04/17/2023 Office Visit Hematology Oncology Keira Mcintosh CRNP [address] [place] [address] 04/17/2023 Hem/Onc Treatment Hematology Oncology Scheduled Procedures Name Priority Associated Diagnoses Date/Ti me COLONOSCOPY FLEXIBLE PROXIMA L DIAGNOSTIC Recall Encounter for screening colonoscopy Health Maintenance Due Date Last Done Comments DXA Scan 1951 Lipid Panel 1951 COVID-19 Vaccine (#1) 03/29/1951 Pneumococcal Vaccine: 65+ Years (1 - PCV) 1957 Depression Screening, Annual for Pts 12 and Over 1963 Albumin/Creatinine Ratio 1969 DTaP,Tdap,and Td Vaccines (1 - Tdap) 1970 Zoster Vaccines (1 of 2) 1970 Cologuard 1996 Fecal Occult Blood Test 1996 Sigmoidoscopy 1996 Mammogram 09/14/2020 09/14/2019, 03/30/1999 Influenza Vaccine (FLU shot) (Season Ended) 2023 GFR 03/06/2024 03/06/2023, 12/29, 09/19/2022, Additional [...] ONCE PRN Other, Hypersensitivity Reaction, Starting on Fri03/06/23 at 1101, Until Fri03/07/23 at 1100, For 24 hours EPINEPHrine 1 MG/ML inj 0.3 mg 0.3 mg, Intramuscular, ONCE PRN Other, Hypersensitivity Reaction or Anaphylaxis, Starting on Aileen 03/06/23 at 1101, Until Fri03/07/23 at 1100, For 24 hours hEParin 100 UNIT/ML Lock Flush inj 500 Units 500 Units (5 mL), IV Lock, PRN Other, IV Flush, Starting on Aileen 03/06/23 at 1101, Until Fri03/07/23 at 1100, For 24 hours, Do not flush if lock, PICC, or central line not in place; IV infusing or unable to flush. Hydrocortisone Sod Suc (PF) (Solu-Cortef) inj 100 mg 100 mg, IV Push, ONCE PRN Other, Hypersensitivity Reaction, Starting on Aileen 03/06/23 at 1101, Until Fri03/07/23 at 1100, For 24 hours NSS infusion 500 mL, Intravenous, at 50 mL/hr, CONTINUOUS, Starting on Aileen 03/06/23 at 1215, Until Fri03/06/23 at 2214 Start Infusion 03/06/2023 11:03 AM EDT 500 mL 50 mL/hr sodium chloride 0.9 % flush central line 10 mL 10 mL, IV Push, PRN Other, IV Flush, Starting on Fri03/06/23 at 1101, Until Fri03/07/23 at 1100, For 24 hours, Do not flush if lock, PICC, or central line not in place; IV infusing or unable to flush. Inactive Administered Medications - up to 3 most recent administrations Medication Order MAR Action Action Date Dose Rate Site Acetaminophen (Tylenol) tab 650 mg 650 mg, Oral, ONCE, On Fri03/06/23 at 1215, For 1 dose, Maximum of 4 grams (4000 mg) per day. Given 03/06/2023 11:03 AM EDT 325 mg diphenhydrAMINE (Benadryl) cap 25 mg 25 mg, Oral, ONCE, On Fri03/06/23 at 1215, For 1 dose Given 03/06/2023 11:03 AM EDT 25 mg Immune Globulin Human- IVIG 10% (Privigen) IV 20 g 20 g, IV Piggyback, ONCE, 1 dose, On Fri03/06/23 at 1245, Infusion Rate VTBI 0.005 mL/kg/min = 19 mL/hour for 15 minutes 5 mL 0.01 mL/kg/min = 38 mL/hour for 15 minutes 10 mL 0.02 mL/kg/min = 77 mL/hour for 15 minutes 19 mL 0.04 mL/kg/min = 153 mL/hour for 15 minutes 38 mL 0.08 mL/kg/min = 307 mL/hour Use this rate until finished 178 mL Infusion duration =1.6 hours Rate Change 03/06/2023 12:16 PM EDT 307 mL/hr Start Infusion 03/06/2023 12:04 PM EDT 20 g 153 mL/h r Immune Globulin Human-IVIG 10% (Privigen) IV 5 g 5 g, IV Piggyback, ONCE, 1 dose, On Fri03/06/23 at 1215, Infusion Rate VTBI 0.005 mL/kg/min = 19 mL/hour for 15 minutes 5 mL 0.01 mL/kg/min = 38 mL/hour for 15 minutes 10 mL 0.02 mL/kg/min = 77 mL/hour for 15 minutes 19 mL 0.04 mL/kg/min = 153 mL/hour for 15 minutes 38 mL 0.08 mL/kg/min = 307 mL/hour Use this rate until finished 178 mL Infusion duration =1.6 hours Rate Change 03/06/2023 12:01 PM EDT 153 mL/hr Rate Change 03/06/2023 11:45 AM EDT 77 mL/hr Rate Change 03/06/2023 11:30 AM EDT 38 mL/hr documented in this encounter Care Teams Vpk Teacher Relationship Specialty Start Date End Date Alberto Mcnamara MD [address] [address] PCP - General Internal Medicine 06/25/16 documented as of this encounter
--- OUTSIDE RECORDS SUMMARY | 2023-08-07 22:13 | External Medical Summary ---
Author Name Unknown Address Unknown Organization K09:[facility] [place] [address] Laboratory Report Ordering Provider Test Date Status DEVANG RAMÍREZ 04/17/2023 08:35:53 Final Observation Date Value Abnormality Reference (Units ) Status SYNC LEUKOCYTES IN BLOOD BY AUTOMATED COUNT 04/17/2023 08:35:53 4.08 4.00-10.80 (K/uL) Final Segs 04/17/2023 08:35:53 68.8 40.0-75.0 (%) Final Lymphs % 04/17/2023 08:35:53 16.4 Below low normal 18.0-42.0 (%) Final Monos 04/17/2023 08:35:53 11.8 Above high normal 1.0-11.0 (%) Final Eosinophils 04/17/2023 08:35:53 2.5 0.0-6.0 (%) Final Basos 04/17/2023 08:35:53 0.5 0.0-2.0 (%) Final Absolute Segs 04/17/2023 08:35:53 2.81 1.80-7.70 (K/uL) Final Lymphs, absolute 04/17/2023 08:35:53 0.67 Below low normal 1.00-4.80 (K/ul) Final Monos, Abs 04/17/2023 08:35:53 0.48 0.00-1.10 (K/uL) Final Eos, Abs 04/17/2023 08:35:53 0.10 0.00-0.70 (K/uL) Final Basos, Abs 04/17/2023 08:35:53 0.02 0.00-0.20 (K/uL) Final Performing Location [facility] [place] [address]
--- OUTSIDE RECORDS SUMMARY | 2023-08-07 22:13 | External Medical Summary | Summary of Care ---
Author Name Unknown Organization [facility] Address [address] [facility] [place] [address] Phone [phone] Care Team Providers Care Gunstock Spray Unit Feeder Name Role Phone Alberto Mcnamara MD Primary Care Provider Reason for Visit * Reason Comments Outpatient Testing Encounter Details Date Type Department Care Team Description 03/06/2023 Laboratory Laboratory [place] [address] [place] [id number] [place], Lab Scenery [address] [facility] [place] [address] Hypogammaglobulinemia (HCC); CLL (chronic lymphocytic leukemia) ([facility]) Allergies Active Allergy Reactions Severity [...] Capsule by mouth at bedtime. 0 Active Umfqcut-Zzxivkdvn-Ott mack D 500-250-200 MG-MG-UNIT TABS Take by [...] 0 Active Vitamin D (Ergocalciferol) 1.25 MG (47166 UT) Oral Capsule Take 1 Capsule by mouth in the morning. 0 Active Ipratropium [place] 0.02 % Inhalation Solution (Atrovent) Inhale via [...] every 6 hours as needed. 0 Active documented as of this encounter [...] Encounters Date Type Specialty Care Team Description 03/06/2023 Hem/Onc Treatment Hematology Oncology Arrived 04/17/2023 Laboratory Laboratory [place] Lab Scenery [address] [place] [address] 04/17/2023 Office Visit Hematology Oncology Keira Mcintosh CRNP [address] [facility] [place] [address] 04/17/2023 Hem/Onc Treatment Hematology Oncology Pending Results Name Type Priority Associated Diagnoses Date /Time COMPREHENSIVE METABOLIC PANEL Lab STAT Hypogammaglobulinemia (HCC) CLL (chronic lymphocytic leukemia) (HCC) 03/06/2023 9:59 AM EDT IMMUNOGLOBULIN QUANTITATIVE Lab Routine Hypogammaglobulinemia (HCC) CLL (chronic lymphocytic leukemia) (HCC) 03/06/2023 9:59 AM EDT Scheduled Procedures Name Priority Associated [...] Vaccine (FLU shot) (Season Ended) 2023 GFR 01/24/2024 01/23/2023, 08/30, 08/08/2022, Additional history exists Colonoscopy 07/10/2026 07/10/2016, 06/29, [...] Date/Time Associated Diagnosis Comments DIFFERENTIAL, AUTOMATED STAT 03/06/2023 9:59 AM EDT Hypogammaglobulinem ia (HCC) CLL (chronic lymphocytic leukemia) (HCC) CBC WITH WBC DIFFERENTIAL STAT 03/06/2023 9:59 AM EDT Hypogammaglobulinem ia (HCC) CLL (chronic lymphocytic leukemia) (HCC) CBC STAT 03/06/2023 9:59 AM EDT Hypogammaglobulinem ia (HCC) CLL (chronic lymphocytic leukemia) (HCC) documented in this encounter Results * (ABNORMAL) DIFFERENTIAL, AUTOMATED (03/06/2023 9:59 AM EDT) WBC 4.57 4.00 - 10.80 K/uL 03/06/2023 10:05 AM EDT [facility] 56-02 Neutrophils % 67.1 40.0 - 75.0 % 03/06/2023 10:05 AM EDT [facility] 56-02 Lymphocytes % 18.2 18.0 - 42.0 % 03/06/2023 10:05 AM EDT [facility] 56-02 Monocytes % 11.8(H) 1.0 - 11.0 % 03/06/2023 10:05 AM EDT [facility] 56-02 Eosinophils % 2.2 0.0 - 6.0 % 03/06/2023 10:05 AM EDT [facility] 56-02 Basophils % 0.7 0.0 - 2.0 % 03/06/2023 10:05 AM EDT [facility] 56-02 Absolute Neutrophils 3.07 1.80 - 7.70 K/uL 03/06/2023 10:05 AM EDT [facility] 56- Absolute Lymphocytes 0.83(L) 1.00 - 4.80 K/ul 03/06/2023 10:05 AM EDT [facility] 56- Absolute Monocytes 0.54 0.00 - 1.10 K/uL 03/06/2023 10:05 AM EDT [facility] 56- Absolute Eosinophils 0.10 0.00 - 0.70 K/uL 03/06/2023 10:05 AM EDT [facility] 56- Absolute Basophils 0.03 0.00 - 0.20 K/uL 03/06/2023 10:05 AM EDT [facility] 56 Blood Venous blood specimen / Unknown Venipuncture / Unknown 03/06/2023 9:59 AM EDT 03/06/2023 9:59 AM EDT Dylon Lilly MD LAB BLOOD ORDERABLES [facility] [address] [place] [address] * CBC (03/06/2023 9:59 AM EDT) WBC 4.57 4.00 - 10.80 K/uL 03/06/2023 10:05 AM EDT [facility] 56- RBC 3.86 3.85 - 5.15 M/uL 03/06/2023 10:05 AM EDT [facility] 56 HGB 12.0 12.0 - 15.3 g/dL 03/06/2023 10:05 AM EDT [facility] 56- HCT 37.2 36.0 - 45.2 % 03/06/2023 10:05 AM EDT [facility] 56- MCV 96.4 81.5 - 97.5 fL 03/06/2023 10:05 AM EDT [facility] 56 MCH 31.1 27.0 - 34.0 pg 03/06/2023 10:05 AM EDT [facility] 56 MCHC 32.3 32.0 - 36.0 g/dL 03/06/2023 10:05 AM EDT [facility] 56 RDW 12.6 11.5 - 15.5 % 03/06/2023 10:05 AM EDT [facility] 56 PLT 270 140 - 400 K/uL 03/06/2023 10:05 AM EDT [facility] 56 MPV 9.3 6.6 - 11.1 fL 03/06/2023 10:05 AM EDT [facility] Blood Venous blood specimen / Unknown Venipuncture / Unknown 03/06/2023 9:59 AM EDT 03/06/2023 9:59 AM EDT Dylon Lilly MD LAB BLOOD ORDERABLES [facility] [address] [place] [address] documented in this encounter Visit Diagnoses Diagnosis Hypogammaglobulinemia (HCC) Hypogammaglobulinaemia, unspecified CLL (chronic lymphocytic leukemia) (HCC) Chronic lymphoid leukemia, without mention of having achieved remission documented in this encounter Care Teams Gunstock Spray Unit Feeder Relationship Specialty Start Date End Date Alberto Mcnamara MD [address] [place] [address] PCP - General Internal Medicine 06/25/16 documented as of this encounter
--- OUTSIDE RECORDS SUMMARY | 2023-08-07 22:13 | External Medical Summary | Summary of Care ---
Author Name Unknown Organization [facility] Address [address] [place] [address] Phone [phone] Care Team Providers Care Credentialer Name Role Phone Alberto Mcnamara MD Primary Care Provider Reason for Visit * Reason Comments Chemotherapy Encounter Details Date Type Department Care Team Description 04/17/2023 Office Visit Hematology/Oncology [facility] [address] [place] [address] Keira Mcintosh CRNP [address] [place] [address] CLL (chronic lymphocytic leukemia) (HCC)*; Hypogammaglobulinemia (HCC) Allergies Active Allergy Reactions Severity Noted Date Comments Erythromycin Base 01/12/1998 GI upset Hydrochlorothiazide 03/02/2020 Dabigatran 03/02/2020 Rivaroxaban 03/02/2020 documented as of this encounter (statuses as of 04/19/2023) Medications Medication Sig Dispensed Refills Start Date End Date Status albuterol (PROVENTIL HFA) 108 (90 BASE) MCG/ACT inhaler Inhale 2 Puffs by mouth every 6 hours as needed. 0 Active Cetirizine HCl 10 MG Capsule Take 1 Capsule by mouth daily as needed for Rhinitis. 0 Active Melatonin 3 MG Capsule Take 1 Capsule by mouth at bedtime. 0 Active Vlcjxur-Kctnvizbp-Hdr mack D 500-250-200 MG-MG-UNIT TABS Take by [...] 0 Active Vitamin D (Ergocalciferol) 1.25 MG (19241 UT) Oral Capsule Take 1 Capsule by mouth in the morning. 0 Active Ipratropium [place] 0.02 % Inhalation Solution (Atrovent) Inhale via [...] as of this encounter (statuses as of 04/19/2023) Active Problems Problem Noted Date CLL (chronic lymphocytic leukemia) 03/03 Hypogammaglobulinemia 03/03/2020 Neutropenia 03/03/2020 BENIGN HYPERTENSION 08/22/1998 FAMILY HX-GI MALIGNANCY 08/22/1998 documented as of this encounter (statuses as of 04/19/2023) Social History Tobacco Use Types Packs/Day Years [...] Sign Reading Time Taken Comments Blood Pressure 153/71 04/17/2023 9:33 AM EDT Pulse 88 04/17/2023 9:33 AM EDT Temperature 36.3 C (97.4 F) 04/17/2023 9:33 AM ED T Respiratory Rate 16 04/17/2023 9:33 AM EDT Oxygen Saturation 100% 04/17/2023 9:33 AM EDT Inhaled Oxygen Concentration - - Weight 73.3 kg (161 lb 11.2 oz) 04/17/2023 9:33 AM EDT Height - - Body Mass Index 31.58 03/02/2020 12:04 PM EDT documented in this encounter Progress Notes * ALBARO Hilton - 04/17/2023 9:30 AM EDT Hematology/Oncology Outpatient Clinic note Blake Ortiz [place] [address] [facility] [address] [place], [place] [address] Name: Lashonda Rodriguez Date: 04/16/2023 CHIEF COMPLAINT: Lashonda Rodriguez is a 72 year old female here today for f/u visit today. Patient of Dr. Dylon Lilly. From Patient chart confirmed with patient. HEMATOLOGY/ONCOLOGY DIAGNOSIS: B-cell CLL initially diagnosed in 2005 - significant rise in the lymphocyte count and significant neutropenia with worsening anemia and thrombocytopenia noted in late 2019 Hypogammaglobinemia Neutropenia: -she had received G-CSF prophylaxis initially 3 times a week, change to twice a week. When we tried once a week Neupogen, she had ANC around 700 so we decided to go back to prophylactic Neupogen twice a week.Currently she is not on G- CSF supplementation. TREATMENT HISTORY: - Obinutuzumab (she received 3 treatments when she was in [place], on 05/19/2020, she is here for the last cycle with Obinutuzumab). Overall she completed total 6 cycles of brentuximab. Last cyclereceived on 05/19/2020. -venetoclax (started in 12/2019, planning for total 1 year of Venetoclax). She was on venetoclax 400 mg once a day. She completed Venetoclax on 12/29/20. CURRENT TREATMENT: -IVIG25 g every 4 weekly, change to every [...] few years she has been staying in [place] during the winter months, has seen Dr. Dwain Martinez over there. Blood workup done at [facility] in August 2019: -WBC 22785, H&H of 9.3/28.5, MCV 108, Platelet count of 120,000 -ANC 0.93, Absolute lymphocyte count 60,000. - normal kidney and liver function test. Because of significant neutropenia and thrombocytopenia, she had a bone marrow examination while she was in [place], reported to have 90% cellularity, filled with [...] AFib, she is on Eliquis. -VALORIE infection -[facility] treatment for VALORIE infection of the lung with azithromycin, ethambutol,Arikayce inhaler. She follows with Dr. Payne. She was on rifampicin which is discontinued whenshe was started on venetoclax. (Because of drug drug interaction)now she has completed the treatment primary infection. HISTORY OF PRESENT ILLNESS: Lashonda Rodriguez is a 72 year old female with a history as outlined above. Currently here for f/u visit today and IVIG treatment. Patient feeling well today. No complaints or concerns verbalized. [facility] reasons. Is tolerating that well. Continues to follow with pulmonary and doing well. No infectious complications since last office visit. Denies b symptoms. Weight is stable. Denies any lumps or bumps. Past Medical History: Diagnosis Date Abdominal cramping Abdominal pain Allergic rhinitis Arthritis Asthma Chronic lymphocytic leukemia (HCC) Diarrhea GERD (gastroesophageal reflux disease) Joint pain, knee Nausea Osteopenia Solitary pulmonary nodule Past Surgical History: Procedure Laterality Date CARPAL TUNNEL SURGERY Bilateral COLONOSCOPY 2011 Dr. Roberson COLONOSCOPY, DIAGNOSTIC (RECTUM) 07/10/2016 diverticulosis, repeat 10 yrs/COLONOSCOPY FLEXIBLE PROXIMAL DIAGNOSTIC performed by Jin Jacobson MD at ENDOSCOPY [facility] ABDOMEN/PELVIS 04/16/16 MISCELLANEOUS ORDER ([facility]SHS [...] Take 1 Capsule by mouth at bedtime. Cweeznr-Tmqkazyna-Asxggcw D 500-250-200 MG-MG-UNIT TABS Take by mouth. [...] for Sleep. Vitamin D (Ergocalciferol) 1.25 MG (09384 UT) Oral Capsule Take 1 Capsule by mouth in the morning. Ipratropium [place] 0.02 % Inhalation Solution (Atrovent) Inhale via nebulizer 500 mcg in the morning AND 500 mcg at noon AND 500 mcg in the evening AND 500 mcg before bedtime. NATURAL SUPPLEMENT Take by mouth daily . Rivaroxaban 20 MG Oral Tablet (Xarelto) Take 1 Tablet by mouth daily with dinner. traMADol HCl 50 MG Oral Tablet (Ultram) Take 1 Tablet by mouth every 6 hours as needed. LORazepam 0.5 MG Oral Tablet (Ativan) Take 1 Tablet by mouth every 8 hours as needed for Anxiety or Sleep. Sertraline HCl 50 MG Oral Tablet (Zoloft) Take 1 Tablet by mouth in the morning. No current facility-administered medications for this visit. REVIEW OF SYSTEMS: See HPI - otherwise negative OBJECTIVE: Filed Vitals: 04/17/23 0933 BP: 153/71 Pulse: 88 Resp: 16 Temp: 36.3 C (97.4 F) TempSrc: Tympanic SpO2: 100% Weight: 73.3 kg (161 lb 11.2 oz) Wt Readings from Last 5 Encounters: 04/17/23 73.3 kg (161 lb 11.2 oz) 03/06/23 73 kg (161 lb) 01/23/23 73.8 kg (162 lb 12.8 oz) 09/19/22 72.6 kg (160 lb) 08/08/22 73.4 kg (161 lb 12.8 oz) PHYSICAL EXAM: General Appearance: No acute distress [...] masses Neurologic: Normal - Grossly intact LABS: Results for orders placed or performed in visit on 04/17/23 COMPREHENSIVE METABOLIC PANEL Result Value Ref Range BUN 11 6 - 20 mg/dL Creatinine 0.7 0.5 - 1.0 mg/dL Estimated Glomerular Filtration Rate >90 >=60 mL/min Sodium 129 (L) 135 - 146 mmol/L Potassium 4.3 3.5 - 5.1 mmol/L Chloride 94 (L) 98 - 107 mmol/L CO2 27 22 - 32 mmol/L Anion Gap 8 7 - 15 mmol/L Glucose 93 70 - 120 mg/dL Albumin 4.5 3.8 - 5.0 g/dL AST 22 10 - 35 U/L Alkaline Phosphatase 85 35 - 130 U/L Bilirubin, Total 0.4 <=1.2 mg/dL Calcium 9.6 8.4 - 10.2 mg/dL Protein 7.1 6.0 - 8.3 g/dL ALT 12 10 - 35 U/L CBC Result Value Ref Range WBC 4.08 4.00 - 10.80 K/uL RBC 3.94 3.85 - 5.15 M/uL HGB 12.3 12.0 - 15.3 g/dL HCT 37.0 36.0 - 45.2 % MCV 93.9 81.5 - 97.5 fL MCH 31.2 27.0 - 34.0 pg MCHC 33.2 32.0 - 36.0 g/dL RDW 12.9 11.5 - 15.5 % PLT 207 140 - 400 K/uL MPV 9.9 6.6 - 11.1 fL DIFFERENTIAL, AUTOMATED Result Value Ref Range WBC 4.08 4.00 - 10.80 K/uL Neutrophils % 68.8 40.0 - 75.0 % Lymphocytes % 16.4 (L) 18.0 - 42.0 % Monocytes % 11.8 (H) 1.0 - 11.0 % Eosinophils % 2.5 0.0 - 6.0 % Basophils % 0.5 0.0 - 2.0 % Absolute Neutrophils 2.81 1.80 - 7.70 K/uL Absolute Lymphocytes 0.67 (L) 1.00 - 4.80 K/ul Absolute Monocytes 0.48 0.00 - 1.10 K/uL Absolute Eosinophils 0.10 0.00 - 0.70 K/uL Absolute Basophils 0.02 0.00 - 0.20 K/uL IMPRESSION/PLAN: 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 No b symptoms. Weight is stable. No LAD on exam. She is tolerating the IVIG without any obvious side effects. Will continue IVIG every 6 weekly. RTC in 12 weeks with provider with cbc/diff, cmp and immunoglobulin level ALBARO Franklin documented in this encounter Nursing Notes * Jannet Camargo CMA - 04/17/2023 9:36 AM EDT Patient identifed by name and birthdate Do you have any concerns about pain management for today's visit? Yes. Patient instructed to discuss pain concerns with provider during the visit today Living Will or Advance Directive for Health Care as noted on the problem list. [employer] [facility] is a way you can talk to your provider on line through e-mail. Would you like to sign up? I can activate it for you? ALREADY ACTIVE Filed Vitals: 04/17/23 0933 BP: 153/71 Pulse: 88 Resp: 16 Temp: 36.3 C (97.4 F) TempSrc: Tympanic SpO2: 100% Weight: 73.3 kg (161 lb 11.2 oz) Patient was instructed to not get up on the exam table/exam chair until directed and assisted by their provider; patient is to remain seated in the chair/ wheelchair/ exam table/ exam chair for fall prevention and safety reasons. Patient is aware to have assistance to step down off exam table/exam chair with personnel. Patient voiced full comprehension of instructions. documented in this encounter Plan of Treatment Upcoming Encounters Date Type Specialty Care Team Description 05/29/2023 Laboratory Laboratory [facility] [address] [facility] [address] [place] [address] 05/29/2023 Hem/Onc Treatment Hematology Oncology 07/22/2023 Office Visit Hematology Oncology Dylon Lilly MD [address] [place] [address] Scheduled Procedures Name Priority Associated Diagnoses Date/Ti [...] unspecified documented in this encounter Care Teams Credentialer Relationship Specialty Start Date End Date Alberto Mcnamara MD [address] [place] [address] PCP - General Internal Medicine 06/25/16 documented as of this encounter
--- NOTE | 2023-08-09 21:18 | Discharge Summary ---
Date of Service July Admission HPI Per Admitting Provider Lashonda is a 72 year old female with a PMH significant for CLL (B-Cell) currently on Q6W IVIG, Previous VALORIE infection in 2019 (Was followed by ID and completed 9 months of treatment), afib on Xarelto, HTN, SIADH, tachy-luiz syndrome S/P pacemaker placement who presented to the [facility] ED on 08/01 for ongoing SOB, chest discomfort, and fevers. She was noted to have a temperature of 37.9C but was otherwise stable. Labs were significant for a lymphocyte count of 0.29, sodium of 128 (baseline is near 130), negative high sen trop and negative full respiratory biofire panel. Chest xray was read as "Right basilar airspace opacities are suggestive of pneumonia. Follow-up imaging after treatment course is recommended. ". Prior to admission the patient was given ceftriaxone, azithromycin, an albuterol treatment, and 1L NSS. We were asked to evaluate the patient for admission as she is high risk with immunosuppression. At the time of the exam the patient was sitting in bed in no acute distress with her sitting bedside. She states that she started to develop a minimally productive cough, increased SOB, right chest discomfort while coughing, and generalized weakness one week ago. She has been using OTC antitussive and her rescue albuterol inhaler with minimal improvement. This am she felt much for fatigued and SOB promoting her to come to the ED. She has been having difficultly speaking in complete sentences due to her significant cough. She confirms that she has been taking all other prescriptions as prescribed, including her Xarelto. She denies hemoptysis, nausea, vomiting, increased abd pain compared to her chronic pain from CLL, dysuria, hematuria, melena, changes in bowel habits, BL swelling and recent trauma. She states that she is currently on Q6W IVIG infusions with her next appointment in approximately 2 weeks. She is a full code and wishes for her to make medical decisions for her if she cannot make them herself. Please refer to Dr. Argueta's attestation for any changes to the treatment plan Principal Diagnosis Community-acquired pneumonia Discharge Exam General: Awake, conversant Heart: S1, S2/regular rate and rhythm, no murmur rubs or gallops Lungs: No wheezes heard. Bilateral crackles heard.. Normal effort Abdomen: Soft/nontender/nondistended. No hepatosplenomegaly Extremities: No clubbing/cyanosis. No edema Behavior: Appropriate, cooperative Discharge Data Allergies Allergy/AdvReac Type Severity Reaction Status Date / Time mold Allergy Intermediate SOB, Verified 08/01/23 12:46 itchy, watery eyes cat dander Allergy Mild itchy, Verified 08/01/23 12:46 watery eyes chlorthalidone Allergy Mild Dizzy, Verified 08/01/23 12:46 light headed chocolate flavor Allergy Mild Gastrointestinal Verified 08/01/23 12:46 Upset gluten Allergy Mild Gastrointestinal Verified 08/01/23 12:46 Upset dabigatran etexilate AdvReac Intermediate SKIN PEELS Verified 08/01/23 12:46 [From Pradaxa] erythromycin base AdvReac Intermediate NAUSEA / Verified 08/01/23 12:46 VOMITING rivaroxaban [From Xarelto] AdvReac Intermediate SKIN Verified 08/01/23 12:46 PEELING lactose AdvReac Mild GI SYMPTOMS Verified 08/01/23 12:46 Consultations 08/01/23 13:36 ED Decision to Admit Stat Hospital Course (1) Acute respiratory failure with hypoxia: -Presented with a week of progressive SOB, cough, and right chest discomfort -Found to have a right basilar opacity consistent with pneumonia -No leukocytosis, but this could be due to her CLL, full resp biofire is negative -Possibly multifactorial due to asthma/COPD, currently on room air improving, initially started on Rocephin and Zithromax, patient did fine, symptoms improved, patient switched to Augmentin to complete the course of treatment, patient transferred to residential home (2) Pneumonia: -See acute resp failure with hypoxia (3) Asthma exacerbation: -See acute resp failure with hypoxia (4) Chest pain: -Patient started to develop right-sided chest pain, only while coughing, approximately 3-4 days ago -Denies chest discomfort at rest -Cardiac workup has been unremarkable, low suspicion for PE at this time as her pain is not pleuritic, she is hemodynamically stable, and has not missed a dose of Xarelto recently -PRN tylenol and Guaifenesin/Codeine for now (5) Hyponatremia: -Patient has a hx of Hyponatremia due to SIADH, 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 -Likely a combination of SIADH and poor oral intake over the past week -Sodium is 129 / baseline is 129-130 , resolved (6) Hypertension: -Stable -Continue home regimen (7) CLL (chronic lymphocytic leukemia): -Continue to follow with Heme/Onc (8) Paroxysmal atrial fibrillation: -Stable -Continue metoprolol, flecainide, and Xarelto Plan Likely discharge in a day or 2 Total Time Total Time Spent Total Time Spent (In Minutes): 45-minute Discharge Plan Discharge Items Patient Disposition: Transfer Inpatient Rehab Fac Reason For Visit: Pneumonia, ASTHMA EXACERBATION, HYPOXIA Discharge Diagnosis: pneumonia Community aquired Activity: Resume your previous activity Bathing: No limitations Sexual Activity: When tolerated Non-emergency contact: Primary Care Provider Call non-emergency contact if: you have any medication questions Follow-up/Referrals: Holli Wheeler DO [Primary Care Provider] - 08/12/23 11:00 am Diet: Heart Healthy Addtl Attending Provider Instructions: Please follow with you primary care physician in two weeks Pending Studies at Discharge: No Stand-Alone Forms: My [facility] [employer], Smoking Cessation Medications and DC Order Prescriptions: New amoxicillin-pot clavulanate 875-125 mg Tablet 1 tab PO BIDM 6 Days Qty: 12 0RF Continued potassium chloride 10 mEq tablet extended release 10 meq PO 3XWK Qty: 60 3RF Rx Instructions: TAKE THIS MEDICATION EVERY FRIDAY,FRIDAY AND FRIDAY PER PT SHE ONLY TAKES ONCE A WEEK ipratropium-albuterol 0.5 mg-3 mg(2.5 mg base)/3 mL solution for nebulization 3 ml INHALATION QID PRN (Reason: Shortness Of Breath Or Wheezing) Qty: 90 0RF flecainide 100 mg tablet 100 mg PO Q12H Qty: 180 3RF Evenity 210mg/2.34mL ( 105mg/1.17mLx2) syringe 210 mg subcut ONCE Qty: 2.34 11RF Rx Instructions: inject monthly for 12 monthly doses Buy and Bill dicyclomine 10 mg capsule 10 mg PO TID PRN (Reason: IBS with diarrhea) Qty: 90 2RF sertraline 50 mg tablet 50 mg PO DAILY Qty: 90 1RF zolpidem 5 mg tablet 5 mg PO HS PRN (Reason: insomnia) Qty: 30 0RF turmeric root extract 500 mg capsule 1,000 mg PO DAILY sodium chloride 7 % solution for nebulization 1 inh inhalation BID PRN (Reason: Unknown) lorazepam 0.5 mg tablet 0.5 mg PO Q8H PRN (Reason: anxiety) Qty: 20 1RF albuterol sulfate 90 mcg/actuation HFA aerosol inhaler 2 inh inhalation Q6H PRN (Reason: shortness of breath or wheezing) Qty: 8.5 3RF cetirizine [Zyrtec] 10 mg Tablet 10 mg PO QPM prochlorperazine maleate 10 mg tablet 10 mg PO Q6H PRN (Reason: Nausea) vitamin B complex Capsule 1 cap PO QAM Rx Instructions: 50 mg Raw Green Superfoods Caps 500 mg capsule 2,000 mg PO QDL Gammagard Liquid 10 % Solution 25 g IV MONTHLY Patient Comments: gets an infusion every 6 wks Probiotic 10 billion cell Capsule 10,000 mmu cells PO QAM Vitamin C (ascorbate calcium) 814 mg/gram powder 400 mg PO DAILY Calcium Magnesium + D 400-167-133 mg-mg-unit tablet 1 tab PO TIDM furosemide 20 mg tablet 20 mg PO QAM metoprolol succinate 50 mg tablet extended release 24 hr 100 mg PO QAM Rx Instructions: TAKE 2 TABLETS BY MOUTH EVERY DAY cholecalciferol (vitamin D3) 50 mcg (2,000 unit) capsule 50 mcg PO QAM Xarelto 20 mg tablet 20 mg PO PM Rx Instructions: must administer with evening meal One-A-Day Womens Formula 18 mg iron-400 mcg-500 mg Tablet 1 tab PO DAILY acetaminophen 325 mg Tablet 650 mg PO Q4H PRN (Reason: pain) Qty: 30 0RF Discharge Orders: Discharge Order (Routine); Ordered 08/06/23 Ordered By: Wayne Rojas/Other Patient Handouts: Understanding Deep Vein Thrombosis, Procedures for Deep Vein Thrombosis, Preventing Deep Vein Thrombosis Admission Data Admit Date/Time: 08/01/23 14:24 Attending Provider: Wayne Giron Admit Provider: Tye Argueta Primary Care Provider: Holli Wheeler Other Providers: Tye Argueta; [facility] Other Interventions: Discharge Summary Assessment (RN) Last Done: 08/06/23 13:09 Coding Level of Care Code 54624 INP/OBS DISCH >30 MIN Diagnoses Acute respiratory failure with hypoxia J96.01 Pneumonia J18.9 Laterality: right Lung location: middle lobe of lung Pneumonia type: due to unspecified organism Asthma exacerbation J45.901 Chest pain R07.9 Hyponatremia E87.1 Essential hypertension I10 Hypertension type: essential hypertension CLL (chronic lymphocytic leukemia) C91.90 Paroxysmal atrial fibrillation I48.0
== END 2023-08-06 13:52 | DRG 193 ==
LOC: ED 10:59 → SUATTDRO 14:24 → 2S 14:24

== ENCOUNTER 2025-06-06 17:29 | Inpatient (IN) ==
[2025-06-06 19:12] LABS: Hematocrit (blood only) 36.9 % (37.0-47.0); Hemoglobin 12.0 g/dl (12.0-16.0); Immature Granulocytes # (auto) 0.02 K/uL (0.01-0.20); Immature Granulocytes % (auto) 0.3 %; Mean Corpuscular Hemoglobin 30.7 pg (25.0-34.0); Mean Corpuscular Volume 94.4 fL (80.0-100.0); Platelet Count 235 K/uL (130-400); RDW Standard Deviation 50.0 fL (36.4-46.3); Red Blood Count 3.91 M/uL (4.20-5.40); White Blood Count 6.33 K/ul (4.8-10.8)
--- NOTE | 2025-06-06 19:26 | Emergency Department Note ---
History of Present Illness General Chief complaint: Cardiac Assessment Stated complaint: REF BY DR WHEELER AFTER EKG, DRY COUGH Time Seen by Provider: 06/06/25 19:24 History of Present Illness Maximum Pain Intensity: 7 This is a 73-year-old female who presents the emergency department via private vehicle with complaints of "chest tightness, shortness of breath". This began yesterday evening and progressed into today. She used her nebulizer and rescue inhaler around 3 AM. She then used albuterol and Airsupra today around 7 AM. Saw PCP around 3 PM. 2 minutes into a walk test at the PCP office patient began with chest tightness and dyspnea. Patient believes that she is in atrial fibrillation at this time. She notes she is on flecainide and metoprolol for rate control. Patient also notes she is anticoagulated on warfarin. She also notes intermittent headache. Recent pneumonia, late April 2025. No chest pain, rather describes it as more of a tightness. Home Medications Medication Instructions Recorded Confirmed Type Raw Green Superfoods Caps 500 mg PO QPM 07/05/20 06/06/25 History cetirizine 10 mg tablet (Zyrtec) 10 mg PO QPM 07/05/20 06/06/25 History immune glob,gamma (IgG) 10 25 g IV .4-6WEEKS 07/05/20 06/06/25 History %-gly-IgA over 50 mcg/mL injection solution (Gammagard Liquid) prochlorperazine maleate 10 mg 10 mg PO Q6H PRN Nausea 07/05/20 06/06/25 History tablet vitamin B complex 1 cap PO QAM 07/05/20 06/06/25 History Lactobacillus acidophilus 10 10,000 mmu cells PO QAM 09/12/20 06/06/25 History billion cell capsule (Probiotic) ascorbate calcium (vitamin C) 814 400 mg PO QAM 11/30/20 06/06/25 History mg/gram oral powder (Vitamin C (ascorbate calcium)) [id number]-Ca carb-vit K 1 tab PO QAM 10/08/21 06/06/25 History 18 mg iron-400 mcg-500 mg tablet (One-A-Day Womens Formula) acetaminophen 325 mg tablet 650 mg (2 x 325 mg) PO Q4H PRN 10/11/21 06/06/25 Rx pain #30 tabs ipratropium 0.5 mg-albuterol 3 mg 3 ml inhalation QID PRN Shortness 12/09/23 06/06/25 Rx (2.5 mg base)/3 mL nebulization Of Breath Or Wheezing #180 mL soln denosumab 60 mg/mL subcutaneous 60 mg subcut ONCE #1 mL 04/27/24 06/06/25 Rx syringe (Prolia) furosemide 20 mg tablet See Rx Instructions PO .COMPLEX 11/23/24 06/06/25 Rx #180 tabs zolpidem 5 mg tablet 5 mg PO HS PRN insomnia #15 tabs 11/23/24 06/06/25 Rx lorazepam 0.5 mg tablet 0.5 mg PO Q8H PRN anxiety #30 tabs 12/22/24 06/06/25 Rx flecainide 100 mg tablet 100 mg PO Q12H #180 tabs 12/23/24 06/06/25 Rx sertraline 100 mg tablet 100 mg PO DAILY #90 tabs 02/02/25 06/06/25 Rx budesonide 180 mcg/actuation 1 inh inhalation BID 03/15/25 06/06/25 History breath activated powder inhaler potassium chloride 10 mEq 10 meq PO 3XWK 03/15/25 06/06/25 History tablet,extended release albuterol 90 mcg-budesonide 80 2 inh inhalation 6XD PRN Shortness 05/25/25 06/06/25 History mcg/actuation HFA aerosol inhaler Of Breath Or Wheezing (Airsupra) montelukast 10 mg tablet 10 mg PO QPM 05/25/25 06/06/25 History montelukast 10 mg tablet 10 mg PO DAILY 05/26/25 06/06/25 History (Singulair) calcium 400 mg 1 tab PO 3XWK 06/02/25 06/06/25 History (carbonate)-magnesium 167 mg (oxide)-D3 133 unit tablet (Calcium Magnesium plus D) metoprolol succinate 50 mg 100 mg (2 x 50 mg) PO QPM #180 tabs 06/06/25 06/06/25 Rx tablet,extended release 24 hr sodium chloride 7 % for 1 inh inhalation BID PRN 06/06/25 06/06/25 History nebulization DIRECTED warfarin 5 mg tablet 5 mg PO QPM 06/06/25 06/06/25 History Allergies Allergy/AdvReac Type Severity Reaction Status Date / Time mold Allergy Intermediate SOB, Verified 06/06/25 20:33 itchy, watery eyes cat dander Allergy Mild itchy, Verified 06/06/25 20:33 watery eyes chlorthalidone Allergy Mild Dizzy, Verified 06/06/25 20:33 light headed chocolate flavor Allergy Mild Gastrointestinal Verified 06/06/25 20:33 Upset gluten Allergy Mild Gastrointestinal Verified 06/06/25 20:33 Upset dabigatran etexilate AdvReac Intermediate SKIN PEELS Verified 06/06/25 20:33 [From Pradaxa] erythromycin base AdvReac Intermediate NAUSEA / Verified 06/06/25 20:33 VOMITING lactose AdvReac Mild GI SYMPTOMS Verified 06/06/25 20:33 Past Med/Surg History Problem List (Updated 06/06/25 @ 23:43 by Raymond Henderson PA-C) Dyspnea on exertion (Acute) Chest tightness (Acute) Collagenous colitis Immunodeficiency syndrome Situational stress Allergic rhinitis with postnasal drip Asthma Osteoarthritis, knee Idiopathic polyneuropathy TILLMAN (dyspnea on exertion) Mitral regurgitation ARMIDA (stress urinary incontinence, female) Hypogammaglobulinemia MCC current use of anticoagulant therapy (Chronic) Paroxysmal atrial fibrillation (Chronic) Hypertension (Chronic) CLL (chronic lymphocytic leukemia) (Chronic) Chronic lymphocytosis. Cardiac murmur Mild TR and MR noted on 2017 echo. Peptic ulcer disease H/O Tachycardia-bradycardia syndrome (Acute) hx of--reason for pacemaker placement SIADH (syndrome of inappropriate ADH production) Pacemaker medtronic dual chamber VALORIE (mycobacterium avium-intracellulare) hx 2019 Osteoporosis Medical History History of rib fracture (05/25/22) History of hip fracture (~10/08/21) Pelvis fracture (01/10/23) Abnormal gait Immunodeficiency syndrome Hyponatremia Mycobacterium avium complex Osteoarthritis On anticoagulant therapy Anemia Migraine Asthma Surgical History History of cataract surgery History of permanent cardiac pacemaker placement (~07/07/20) S/P bilateral breast reduction History of bronchoscopy H/O reduction mammoplasty Hx of vaginal hysterectomy History of carpal tunnel release History of repair of rotator cuff History of arthroscopy History of appendectomy History of esophagogastroduodenoscopy (EGD) History of tonsillectomy History of cardiac cath History of colonoscopy Family History Mother Colon cancer Colorectal cancer Uterine cancer Sister Colon cancer Colorectal cancer Father Prostate cancer Stroke Son Family history of reaction to anesthesia Brother Diabetes Brother CLL (chronic lymphocytic leukemia) Denies family history of Ovarian cancer Myocardial infarction Breast cancer Lung cancer Social History Smoking Status: Never smoker Second Hand Exposure: No; Do You Dip or Chew Tobacco: No; Hx Alcohol Use: Yes Alcohol type: wine Alcohol Intake Frequency: Monthly or Less Hx Substance Use: No Preferred Language: Lebanese Communication Ability: Effective Visual Impairment: Limited Hearing Ability: Normal Tab Builder Required: No Beliefs That Will Affect Care: None marital status: Current Living Situation: Alone Current Living Situation Comment: dtr will check in on pt. current occupational status: retired How many Children do You have: 4 Feels Safe at Home: Yes Childhood Exposure to Second-Hand Smoke: No caffeine: Yes Dental Care, Regularly: Yes Physical Activity Frequency: 5-6 Times per Week Seatbelt Use: always Sunscreen Use: Yes Assistive Devices: Cane and Glasses Review of Systems A total of 10 systems reviewed and were otherwise negative Physical Exam Vital Signs Vital Signs - 24 hr 06/06/25 17:38 06/06/25 17:42 06/06/25 19:40 Temperature 36.9 C Temperature Source Temporal Artery Scan Pulse Rate 77 82 Pulse Rate from SpO2 Sensor Pulse Rhythm Respiratory Rate 20 Respiratory Effort / Characteristics Non-Labored SOB on Exertion Respiratory Depth Normal Blood Pressure 160/89 H Blood Pressure Mean 112 Pulse Oximetry 98 Oxygen Delivery Method Room Air Sepsis Recent Fever Within 48 Hours No Sepsis New/Unexplained Change in Mental Status No Sepsis Action Taken by Nursing No Action Required 06/06/25 20:06 06/06/25 20:30 06/06/25 21:57 Temperature Temperature Source Pulse Rate 75 69 74 Pulse Rate from SpO2 Sensor 68 79 Pulse Rhythm Respiratory Rate 18 20 27 H Respiratory Effort / Characteristics Respiratory Depth Blood Pressure 137/79 152/101 H Blood Pressure Mean 98 118 Pulse Oximetry 97 93 Oxygen Delivery Method Room Air Sepsis Recent Fever Within 48 Hours Sepsis New/Unexplained Change in Mental Status Sepsis Action Taken by Nursing 06/06/25 22:03 06/06/25 22:21 06/06/25 22:21 Temperature Temperature Source Pulse Rate 70 76 Pulse Rate from SpO2 Sensor 84 Pulse Rhythm Regular Respiratory Rate 27 H Respiratory Effort / Characteristics Respiratory Depth Blood Pressure 161/94 H Blood Pressure Mean 116 Pulse Oximetry 96 96 96 Oxygen Delivery Method Room Air Room Air Sepsis Recent Fever Within 48 Hours Sepsis New/Unexplained Change in Mental Status Sepsis Action Taken by Nursing 06/06/25 23:03 Temperature Temperature Source Pulse Rate 76 Pulse Rate from SpO2 Sensor Pulse Rhythm Respiratory Rate 18 Respiratory Effort / Characteristics Respiratory Depth Blood Pressure 139/90 Blood Pressure Mean 106 Pulse Oximetry 95 Oxygen Delivery Method Room Air Sepsis Recent Fever Within 48 Hours Sepsis New/Unexplained Change in Mental Status Sepsis Action Taken by Nursing VITAL SIGNS - Vital signs and nursing notes were reviewed. Stable and afebrile. GENERAL -74-year-old female appearing her stated age who is in no acute distress. Communicates well with provider and answers questions appropriately. SKIN - Without rashes. No meningeal or petechial rash. HEAD - NC/AT. EYES - PERRL with EOMI bilaterally. Sclera anicteric. EARS - No deformities of external structures noted on gross examination bilaterally. NOSE - Midline and without cyanosis. Septum midline without deviation or septal hematoma noted. MOUTH/OROPHARYNX - Without perioral cyanosis. NECK - Neck with FROM. No nuchal rigidity. LUNGS - Chest wall symmetric without accessory muscle use, intercostals retractions, or central cyanosis. Normal vesicular breath sounds CTA B/L. No wheezes, rales, or rhonchi appreciated. CARDIAC - RRR ABDOMEN - Abdominal contour normal without pulsations or visible masses. BS normoactive all four quadrants. No tenderness, palpable masses, hepatosplenomegaly, or ascites noted. EXTREMITIES - No clubbing or peripheral cyanosis. +5/5 strength noted in UE/LE bilaterally. NEUROLOGIC - Cranial nerves grossly intact. PSYCH -alert, oriented and pleasant on exam. Course Administered Medications Discontinued Medications Aspirin (Aspirin Chew 324 Mg) 324 mg PO NOW STA Stop: 06/06/25 21:43 Last Admin: 06/06/25 21:57 Dose: 324 mg Documented By: JENIFFER Fentanyl Citrate (Fentanyl Citrate Pf 100 Mcg/2 Ml Vial) 25 mcg IV NOW STA Stop: 06/06/25 21:46 Last Admin: 06/06/25 21:57 Dose: 25 mcg Documented By: JENIFFER Ioversol (Optiray 320 125ml) 118 ml IV ONCE ONE Stop: 06/06/25 21:04 Last Admin: 06/06/25 21:03 Dose: 118 ml Documented By: SHONA Ondansetron HCl (Ondansetron Inj 2 Mg/Ml 2 Ml Vial) 4 mg IV NOW STA Stop: 06/06/25 21:46 Last Admin: 06/06/25 21:57 Dose: 4 mg Documented By: JENIFFER Medical Decision Making Laboratory Data 06/06/25 18:57 06/06/25 18:57 Lab Results 06/06/25 06/06/25 06/06/25 Range/Units 18:27 18:57 21:37 WBC 6.33 (4.8-10.8) K/ul RBC 3.91 L (4.20-5.40) M/uL Hgb 12.0 (12.0-16.0) g/dl Hct 36.9 L (37.0-47.0) % MCV 94.4 (80.0-100.0) fL MCH 30.7 (25.0-34.0) pg MCHC 32.5 (32.0-36.0) g/dL RDW Std Deviation 50.0 H (36.4-46.3) fL RDW Coeff of Imani 14.4 (11.5-14.5) % Plt Count 235 (130-400) K/uL MPV 9.6 (9.4-12.4) fL Immature Gran % (Auto) 0.3 % Neut % (Auto) 76.3 % Lymph % (Auto) 15.8 % Beaver % (Auto) 6.2 % Eos % (Auto) 1.1 % Baso % (Auto) 0.3 % Neut # (Auto) 4.83 (1.40-6.50) K/uL Lymph # (Auto) 1.00 L (1.20-3.40) K/uL Beaver # (Auto) 0.39 (0.11-0.59) K/uL Eos # (Auto) 0.07 (0.00-0.50) K/uL Baso # (Auto) 0.02 (0.00-0.20) K/uL Immature Gran # (Auto) 0.02 (0.01-0.20) K/uL PT 22.6 H (9.0-12.0) Seconds INR 2.2 H (0.9-1.1) APTT 39 H (21-31) Seconds PTT Ratio 1.4 Sodium 135 L (136-145) mmol/L Potassium 3.9 (3.5-5.1) mmol/L Chloride 100 (98-107) mmol/L Carbon Dioxide 29 (21-32) mmol/L Anion Gap 6 (3-11) BUN 21 (6-23) mg/dl Creatinine 0.69 (0.6-1.2) mg/dl Est Cr Clr Drug Dosing Not Reportable eGFR 91.58 BUN/Creatinine Ratio 30.4 H (10-20) Glucose 91 (70-99(Fasting)) mg/dl Calcium 8.9 (8.6-10.3) mg/dl Total Bilirubin 0.5 (0.2-1.0) mg/dl AST 34 (13-39) U/L ALT 36 (7-52) U/L Alkaline Phosphatase 41 (34-104) U/L Troponin I High Sens 14.2 H 13.9 (0-14) pg/ml B-Natriuretic Peptide 470 H (0-100) pg/ml Total Protein 6.9 (6.0-8.3) gm/dl Albumin 4.2 (3.4-5.0) gm/dl Globulin 2.7 (2.5-4.0) gm/dl Albumin/Globulin Ratio 1.6 (0.9-2) Imaging Data Radiologist's Impression: Chest X-Ray 06/06/25 17:43 EXAM: X-ray chest one-view portable CLINICAL HISTORY: Chest pain, short of breath SOB PRIORS: 05/26/2025 TECHNIQUE: Frontal view chest FINDINGS: Left-sided cardiac device noted. The chest is well-expanded. No airspace consolidation, effusion or congestive changes. Heart size is top normal. No pneumothorax. Trachea is patent. Osseous structures demonstrate no acute abnormality. No radiopaque foreign body. IMPRESSION: No plain film evidence of an acute cardiopulmonary process. Electronically signed by Claire Rios 06-06-2025 7:31 PM Chest CTA 06/06/25 19:59 Exam(s): CTA CHEST IV Amt: 119cc opti 320 EXAM: CT Angiography Chest With Intravenous Contrast CLINICAL HISTORY: Reason for exam: dyspnea, chest pressure. TECHNIQUE: Axial computed tomographic angiography images of the chest with intravenous contrast. CTDI is 24.27 mGy and DLP is 783.65 mGy-cm. Automated exposure control was utilized for the study. A dose lowering technique was utilized adhering to the principles of ALARA. MIP reconstructed images were created and reviewed. COMPARISON: 05/25/2022 FINDINGS: Pulmonary arteries: Adequate pulmonary artery opacification. Normal caliber main pulmonary artery. No evidence of acute pulmonary embolism. Aorta: No aortic aneurysm. Lungs: Calcified granuloma left lower lobe. Scattered regions of pleural-parenchymal scarring. No consolidation. No mass. Pleural space: No significant pleural effusion. No pneumothorax. Heart: Cardiomegaly and coronary artery atherosclerosis. No significant pericardial effusion. Bones/joints: No acute fracture. No dislocation. Soft tissues: Unremarkable. Lymph nodes: Calcified mediastinal and left hilar lymph nodes consistent with chronic granulomatous disease. Tubes, lines and devices: Left chest wall dual lead AICD-pacemaker. IMPRESSION: No evidence of acute pulmonary embolism. Electronically signed by: Chari Sheffield M.D. 06/06/25 21:24 PM MDM Narrative Patient was seen and evaluated as above in room B11. Review was performed of triage nursing notes and vital signs. I did review pertinent previous visits and patient history. After obtaining a thorough history and physical examination the above work up was performed. Patient presents with the above symptoms. She is well-appearing and nontoxic on examination. EKG per my interpretation reveals atrial fibrillation at a rate of 76 bpm. QTc 489. QRS 94. No ST elevation. Chest x-ray as above, negative for acute process. Labs reveal no leukocytosis or concerning anemia. INR 2.2. Mild hyponatremia 135. No evidence of kidney or liver failure. Initial troponin mildly elevated at 14.2. Repeat troponin will be performed. BNP elevated at 470. CTA of the chest was performed and is as above. No PE. Patient was given oral aspirin, IV fentanyl for the chest discomfort and Zofran for any nausea. Presentation may be secondary to asthma however she has tried treatments at home that typically are successful without relief. There is no wheezing on my examination. At this time I do believe that further evaluation and management in the inpatient setting is warranted. Case discussed with the hospitalist service. Please refer to further documentation regarding her stay. GCS: 15 In the evaluation and treatment of this patient the following differential diagnoses were entertained: OH, PE, pericarditis, costochondritis, asthma exacerbation, dissection, among others. Impression & Plan Chest tightness, Dyspnea on exertion Discharge Plan Visit Data Chief Complaint: Cardiac Assessment Stated Complaint: REF BY DR WHEELER AFTER EKG, DRY COUGH ED Provider: Randal Lilly ED Midlevel Provider: Raymond Henderson Discharge Problem: Chest tightness, Dyspnea on exertion Patient Disposition: Admitted As Inpatient Condition: Good Forms Stand Alone Forms: [facility] Prescriptions Prescriptions: No Action Airsupra 90-80 mcg/actuation HFA aerosol inhaler 2 inh inhalation 6XD PRN (Reason: Shortness Of Breath Or Wheezing) montelukast 10 mg tablet 10 mg PO QPM lorazepam 0.5 mg tablet 0.5 mg PO Q8H PRN (Reason: anxiety) Qty: 30 1RF flecainide 100 mg tablet 100 mg PO Q12H Qty: 180 3RF sertraline 100 mg tablet 100 mg PO DAILY Qty: 90 3RF metoprolol succinate 50 mg tablet extended release 24 hr 100 mg PO QPM Qty: 180 3RF Rx Instructions: TAKE 2 TABLETS BY MOUTH EVERY DAY Prolia 60 mg/mL syringe 60 mg subcut ONCE Qty: 1 1RF zolpidem 5 mg tablet 5 mg PO HS PRN (Reason: insomnia) Qty: 15 1RF furosemide 20 mg tablet See Rx Instructions PO .COMPLEX Qty: 180 3RF Rx Instructions: 2 tablets every other day, 1 tablet every other day orally; budesonide 180 mcg/actuation aerosol powdr breath activated 1 inh inhalation BID montelukast [Singulair] 10 mg tablet 10 mg PO DAILY ipratropium-albuterol 0.5 mg-3 mg(2.5 mg base)/3 mL solution for nebulization 3 ml INHALATION QID PRN (Reason: Shortness Of Breath Or Wheezing) Qty: 180 2RF cetirizine [Zyrtec] 10 mg Tablet 10 mg PO QPM prochlorperazine maleate 10 mg tablet 10 mg PO Q6H PRN (Reason: Nausea) vitamin B complex Capsule 1 cap PO QAM Rx Instructions: 50 mg Raw Green Superfoods Caps 500 mg capsule 500 mg PO QPM Gammagard Liquid 10 % Solution 25 g IV .4-6WEEKS Patient Comments: gets an infusion every 6 wks Rx Instructions: Due last week in january. Probiotic 10 billion cell Capsule 10,000 mmu cells PO QAM Vitamin C (ascorbate calcium) 814 mg/gram powder 400 mg PO QAM Calcium Magnesium plus D 400-167-133 mg-mg-unit tablet 1 tab PO 3XWK Rx Instructions: FRI, FRI, & FRI. One-A-Day Womens Formula 18 mg iron-400 mcg-500 mg Tablet 1 tab PO QAM acetaminophen 325 mg Tablet 650 mg PO Q4H PRN (Reason: pain) Qty: 30 0RF potassium chloride 10 mEq tablet extended release 10 meq PO 3XWK Rx Instructions: 10 mEq orally; TAKE THIS MEDICATION EVERY FRIDAY,FRIDAY AND FRIDAY warfarin 5 mg tablet 5 mg PO QPM sodium chloride 7 % solution for nebulization 1 inh inhalation BID PRN (Reason: DIRECTED) Referrals Referrals: Holli Wheeler DO [Primary Care Provider] -
[2025-06-06 19:29] LABS: Alanine Aminotransferase 36 U/L (7-52); Albumin Globulin Ratio 1.6 (0.9-2); Alkaline Phosphatase 41 U/L (34-104); Anion Gap 6 (3-11); Bilirubin,Total 0.5 mg/dl (0.2-1.0); Blood Urea Nitrogen 21 mg/dl (6-23); Calcium 8.9 mg/dl (8.6-10.3); Carbon Dioxide 29 mmol/L (21-32); Chloride 100 mmol/L (98-107); Globulin 2.7 gm/dl (2.5-4.0); Glucose 91 mg/dl (70-99(Fasting)); Potassium 3.9 mmol/L (3.5-5.1); Sodium 135 mmol/L (136-145); Total Protein 6.9 gm/dl (6.0-8.3)
--- NOTE | 2025-06-06 19:31 | XRay Report ---
EXAM: X-ray chest one-view portable CLINICAL HISTORY: Chest pain, short of breath SOB PRIORS: 05/26/2025 TECHNIQUE: Frontal view chest FINDINGS: Left-sided cardiac device noted. The chest is well-expanded. No airspace consolidation, effusion or congestive changes. Heart size is top normal. No pneumothorax. Trachea is patent. Osseous structures demonstrate no acute abnormality. No radiopaque foreign body. IMPRESSION: No plain film evidence of an acute cardiopulmonary process. Electronically signed by Claire Rios 06-06-2025 7:31 PM
[2025-06-06 19:47] LABS: INR 2.2 (0.9-1.1); Partial Thromboplastin Time 39 Seconds (21-31); Prothrombin Time 22.6 Seconds (9.0-12.0)
[2025-06-06] MEDS: OPTIRAY 320 125ml IV ONE (21:03)
--- NOTE | 2025-06-06 21:26 | CT Scan Report ---
Exam(s): CTA CHEST IV Amt: 119cc opti 320 EXAM: CT Angiography Chest With Intravenous Contrast CLINICAL HISTORY: Reason for exam: dyspnea, chest pressure. TECHNIQUE: Axial computed tomographic angiography images of the chest with intravenous contrast. CTDI is 24.27 mGy and DLP is 783.65 mGy-cm. Automated exposure control was utilized for the study. A dose lowering technique was utilized adhering to the principles of ALARA. MIP reconstructed images were created and reviewed. COMPARISON: 05/25/2022 FINDINGS: Pulmonary arteries: Adequate pulmonary artery opacification. Normal caliber main pulmonary artery. No evidence of acute pulmonary embolism. Aorta: No aortic aneurysm. Lungs: Calcified granuloma left lower lobe. Scattered regions of pleural-parenchymal scarring. No consolidation. No mass. Pleural space: No significant pleural effusion. No pneumothorax. Heart: Cardiomegaly and coronary artery atherosclerosis. No significant pericardial effusion. Bones/joints: No acute fracture. No dislocation. Soft tissues: Unremarkable. Lymph nodes: Calcified mediastinal and left hilar lymph nodes consistent with chronic granulomatous disease. Tubes, lines and devices: Left chest wall dual lead AICD-pacemaker. IMPRESSION: No evidence of acute pulmonary embolism. Electronically signed by: Chari Sheffield M.D. 06/06/25 21:24 PM
[2025-06-06] MEDS: ASPIRIN CHEW 324 MG PO STA (21:57)
[2025-06-06] MEDS: ONDANSETRON INJ 2 MG/ML 2 ML VIAL IV STA (21:57)
--- NOTE | 2025-06-06 22:45 | History & Physical Report ---
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 Dyspnea on exertion/chest tightness Lab work, chest x-ray, chest CTA, and EKG done in the emergency department unremarkable Patient has chronic dyspnea on exertion, for which she has been seen for by PCP and manager mass Believes that recent worsening of her dyspnea on exertion as well as the noted chest tightness may be related to recent pneumonia and possible asthma exacerbation. Will admit to med/tele DuoNebs Q6 daniel plus prn ordered Solu-Medrol 40 mg daily IV, but can transition to oral prednisone and possibly consider taper Will order TTE Paroxysmal A-fib/chronic warfarin Tachy-Francois syndrome w/ Pacemaker History of cardioversion on 08/2024 Noted to be in A-fib in the emergency department with rates of 7080s. Continue home metoprolol succinate 100 mg and flecainide Will continue home warfarin (INR goal of 23); INR in ED was of 2.2 Monitor on telemetry Lower extremity swelling Patient states that this is chronic for her and that her presentation is what she usually sees at home Lack of associated pulmonary edema on chest x-ray or findings suggestive of this on exam decree suspicion that this is related to CHF. TTE from 03/2024 showing EF of 60-65% with normal left ventricular systolic function and no regional wall abnormalities. Will order updated TTE given noted lower extremity swelling, chest tightness, and dyspnea on exertion. Will continue home Lasix Dispo: Med/Tele VTE ppx: Warfarin GI ppx: Protonix Code status: DNI History of Present Illness Chief Complaint: TILLMAN Primary Care Provider: Holli Wheeler DO Patient is a 74-year-old female with past medical history of CLL, microscopic colitis, sick sinus syndrome, paroxysmal atrial fibrillation, permanent pacemaker (07/18), hypertension, osteoporosis, SIADH, peripheral neuropathy, and asthma who came to the emergency department due to noted dyspnea on exertion as the most significant over the course of this past week. The last weeks of April patient had been experiencing persistent cough with some shortness of breath. Initially thought to be related to her known asthma, and therefore started on a prednisone burst along with as needed use of her home nebulizer and rescue inhalers. She noticed that her symptoms fail to improve, she went to her PCP office who ordered a chest x-ray which showed changes that would be suggestive of atelectasis versus pulmonary edema versus infection. Around this time she was started on an 10-day course of Augmentin with improvement of symptoms and resolution noted in repeat chest x-ray. However, over this past weekend, stefani gross states that she had woken up twice around 23 AM due to chest tightness and shortness of breath. She used her home nebulizer treatment with improvement of symptoms and she went back to bed, but woke up with similar symptoms shortly after. Since then, she has been getting dyspneic with ambulation that improves when she uses her rescue inhaler. On this time, she had been experiencing associated substernal chest tightness that is nonradiating, but denies any other symptoms such as fevers, chills, weakness, lightheadedness, syncopal episodes, or any other systemic symptoms. ED Course: Given aspirin 324 mg p.o. x 1, given fentanyl 25 mcg x 1, given Zofran 4 mg IV x 1 Labs/Imaging: CBC without leukocytosis, hemoglobin 12, platelets of 235. INR of 2.2 (patient currently on warfarin). Mild hyponatremia of 135, potassium of 3.9, creatinine is 0.69, blood sugar of 91. LFTs unremarkable. Troponin negative x 2. BNP of 470. Chest x-ray without acute changes. CTA without evidence of PE. Medical History: [Reviewed] Medications: [Reviewed] Surgical History: [Reviewed] Family history: [Reviewed] Allergies: [Reviewed] Social History: [Reviewed] Code Status: DNI Allergies Allergy/AdvReac Type Severity Reaction Status Date / Time mold Allergy Intermediate SOB, Verified 06/06/25 20:33 itchy, watery eyes cat dander Allergy Mild itchy, Verified 06/06/25 20:33 watery eyes chlorthalidone Allergy Mild Dizzy, Verified 06/06/25 20:33 light headed chocolate flavor Allergy Mild Gastrointestinal Verified 06/06/25 20:33 Upset gluten Allergy Mild Gastrointestinal Verified 06/06/25 20:33 Upset dabigatran etexilate AdvReac Intermediate SKIN PEELS Verified 06/06/25 20:33 [From Pradaxa] erythromycin base AdvReac Intermediate NAUSEA / Verified 06/06/25 20:33 VOMITING lactose AdvReac Mild GI SYMPTOMS Verified 06/06/25 20:33 Home Medications Medication Instructions Recorded Confirmed Type Raw [employer] Caps 500 mg PO QPM 07/05/20 06/06/25 History cetirizine 10 mg tablet (Zyrtec) 10 mg PO QPM 07/05/20 06/06/25 History immune glob,gamma (IgG) 10 25 g IV .4-6WEEKS 07/05/20 06/06/25 History %-gly-IgA over 50 mcg/mL injection solution (Gammagard Liquid) prochlorperazine maleate 10 mg 10 mg PO Q6H PRN Nausea 07/05/20 06/06/25 History tablet vitamin B complex 1 cap PO QAM 07/05/20 06/06/25 History Lactobacillus acidophilus 10 10,000 mmu cells PO QAM 09/12/20 06/06/25 History billion cell capsule (Probiotic) ascorbate calcium (vitamin C) 814 400 mg PO QAM 11/30/20 06/06/25 History mg/gram oral powder (Vitamin C (ascorbate calcium)) pocpyqbu-dwe-yuoo-FA-Ca carb-vit K 1 tab PO QAM 10/08/21 06/06/25 History 18 mg iron-400 mcg-500 mg tablet (One-A-Day Womens Formula) acetaminophen 325 mg tablet 650 mg (2 x 325 mg) PO Q4H PRN 10/11/21 06/06/25 Rx pain #30 tabs ipratropium 0.5 mg-albuterol 3 mg 3 ml inhalation QID PRN Shortness 12/09/23 06/06/25 Rx (2.5 mg base)/3 mL nebulization Of Breath Or Wheezing #180 mL soln denosumab 60 mg/mL subcutaneous 60 mg subcut ONCE #1 mL 04/27/24 06/06/25 Rx syringe (Prolia) furosemide 20 mg tablet See Rx Instructions PO .COMPLEX 11/23/24 06/06/25 Rx #180 tabs zolpidem 5 mg tablet 5 mg PO HS PRN insomnia #15 tabs 11/23/24 06/06/25 Rx lorazepam 0.5 mg tablet 0.5 mg PO Q8H PRN anxiety #30 tabs 12/22/24 06/06/25 Rx flecainide 100 mg tablet 100 mg PO Q12H #180 tabs 12/23/24 06/06/25 Rx sertraline 100 mg tablet 100 mg PO DAILY #90 tabs 02/02/25 06/06/25 Rx budesonide 180 mcg/actuation 1 inh inhalation BID 03/15/25 06/06/25 History breath activated powder inhaler potassium chloride 10 mEq 10 meq PO 3XWK 03/15/25 06/06/25 History tablet,extended release albuterol 90 mcg-budesonide 80 2 inh inhalation 6XD PRN Shortness 05/25/25 06/06/25 History mcg/actuation HFA aerosol inhaler Of Breath Or Wheezing (Airsupra) montelukast 10 mg tablet 10 mg PO QPM 05/25/25 06/06/25 History montelukast 10 mg tablet 10 mg PO DAILY 05/26/25 06/06/25 History (Singulair) calcium 400 mg 1 tab PO 3XWK 06/02/25 06/06/25 History (carbonate)-magnesium 167 mg (oxide)-D3 133 unit tablet (Calcium Magnesium plus D) metoprolol succinate 50 mg 100 mg (2 x 50 mg) PO QPM #180 tabs 06/06/25 06/06/25 Rx tablet,extended release 24 hr sodium chloride 7 % for 1 inh inhalation BID PRN 06/06/25 06/06/25 History nebulization DIRECTED warfarin 5 mg tablet 5 mg PO QPM 06/06/25 06/06/25 History Past Med/Surg History Problem List (Updated 06/06/25 @ 23:43 by Raymond Henderson PA-C) Dyspnea on exertion (Acute) Chest tightness (Acute) Collagenous colitis Immunodeficiency syndrome Situational stress Allergic rhinitis with postnasal drip Asthma Osteoarthritis, knee Idiopathic polyneuropathy TILLMAN (dyspnea on exertion) Mitral regurgitation ARMIDA (stress urinary incontinence, female) Hypogammaglobulinemia detention current use of anticoagulant therapy (Chronic) Paroxysmal atrial fibrillation (Chronic) Hypertension (Chronic) CLL (chronic lymphocytic leukemia) (Chronic) Chronic lymphocytosis. Cardiac murmur Mild TR and MR noted on 2017 echo. Peptic ulcer disease H/O Tachycardia-bradycardia syndrome (Acute) hx of--reason for pacemaker placement SIADH (syndrome of inappropriate ADH production) Pacemaker medtronic dual chamber VALORIE (mycobacterium avium-intracellulare) hx 2019 Osteoporosis Medical History History of rib fracture (05/25/22) History of hip fracture (~10/08/21) Pelvis fracture (01/10/23) Abnormal gait Immunodeficiency syndrome Hyponatremia Mycobacterium avium complex Osteoarthritis On anticoagulant therapy Anemia Migraine Asthma Surgical History History of cataract surgery History of permanent cardiac pacemaker placement (~07/07/20) S/P bilateral breast reduction History of bronchoscopy H/O reduction mammoplasty Hx of vaginal hysterectomy History of carpal tunnel release History of repair of rotator cuff History of arthroscopy History of appendectomy History of esophagogastroduodenoscopy (EGD) History of tonsillectomy History of cardiac cath History of colonoscopy Family History Mother Colon cancer Colorectal cancer Uterine cancer Sister Colon cancer Colorectal cancer Father Prostate cancer Stroke Son Family history of reaction to anesthesia Brother Diabetes Brother CLL (chronic lymphocytic leukemia) Denies family history of Ovarian cancer Myocardial infarction Breast cancer Lung cancer Social History Smoking Status: Never smoker Second Hand Exposure: No; Do You Dip or Chew Tobacco: No; Hx Alcohol Use: Yes Alcohol type: wine Alcohol Intake Frequency: Monthly or Less Hx Substance Use: No Preferred Language: Lao Communication Ability: Effective Visual Impairment: Limited Hearing Ability: Normal Classification Clerk Required: No Beliefs That Will Affect Care: None marital status: Current Living Situation: Alone Current Living Situation Comment: dtr will check in on pt. current occupational status: retired How many Children do You have: 4 Other Information That Helps Us Care for You: No Feels Safe at Home: Yes Safety Concerns: Feels Safe At This Time Childhood Exposure to Second-Hand Smoke: No caffeine: Yes Dental Care, Regularly: Yes Physical Activity Frequency: 5-6 Times per Week Seatbelt Use: always Sunscreen Use: Yes Assistive Devices: Cane and Glasses Review of Systems Review of Systems: As per HPI Physical Exam Physical Exam: GENERAL: Awake alert and oriented in all spheres, afebrile, calm, no acute distress HEAD: Atraumatic, normocephalic THROAT: Normal to visual inspection CHEST: Symmetric chest expansions with respirations CARDIO: No murmurs appreciated PULMONARY: End expiratory wheezing heard in upper and lower lung valladares on left side with more mild symptoms on the right, no crackles or rhonchi on exam, patient breathing comfortably at room air GI: Soft, nontender, nondistended EXTREMITIES: +2/+3 bilateral lower extremity swelling without associated calf tenderness Results & Data Results & Data Vital Signs (Past 12 Hours) Vital Signs Temp Pulse Resp BP Pulse Ox O2 Del Method 06/06/25 22:21 76 96 Room Air 06/06/25 22:21 96 Room Air 06/06/25 22:03 70 27 H 161/94 H 96 06/06/25 21:57 74 27 H 152/101 H 93 Room Air 06/06/25 20:30 69 20 137/79 97 06/06/25 20:06 75 18 06/06/25 19:40 82 06/06/25 17:38 36.9 C 77 20 160/89 H 98 Room Air Supervising Physician Co-Signing Physician Notes Attending addendum: I have physically seen this patient, have supervised the medical residents activities, and agree with the H&P unless as otherwise noted. Assessment and Plan: The patient is a 74-year-old female with medical history including CLL, microscopic colitis, sick sinus syndrome, PAF on warfarin, permanent pacemaker, hypertension, osteoporosis, SIADH, peripheral neuropathy, immunodeficiency syndrome, and tachybradycardia syndrome. She presents to the emergency department with complaint of dyspnea on exertion accompanied by chest tightness and occasional dry cough. On emergency department she received aspirin 324 mg, fentanyl 25 mg IV, and Zofran 4 mg IV. Chest x-ray was negative, and CTA chest PE protocol was negative. INR was 2.2, and BNP was 470. Dyspnea on exertion/chest tightness/recent treatment for pneumonia/asthma- Noted to have chronic dyspnea on exertion, which she follows with her PCP and cardiology. Admit to med telemetry Duonebs every 4 hours while awake and every [address] on Solu-Medrol 40 mg IV now, every morning Continue home inhalers, montelukast PAF/tachybradycardia syndrome/presence of pacemaker- The patient will be admitted to telemetry for serial cardiac enzymes, serial EKG's, cardiac rhythm monitoring and a 2-D echocardiogram with Dopplers. History of cardioversion 09/21, presently in atrial fibrillation with rates of 70-80. Most recent echocardiogram was 04/21 with EF 60-65% Chronically anticoagulated on warfarin, which is therapeutic with an INR of 2.2 Continue metoprolol succinate, flecainide, furosemide, potassium chloride Follow serial laboratories CLL/immunodeficiency syndrome- Gammagard IV as outpatient Resident Activity Tracking Resident Involvement: Resident Care Provided Care Provided: Adult Hospital Medicine
[2025-06-07] MEDS ORDERED: MELATONIN 3 MG TAB PO PRN (00:58)
[2025-06-07] MEDS ORDERED: ALBUT/IPRATROP 3MG/0.5MG NEB 3 ML VIAL NEB PRN (00:58)
[2025-06-07] MEDS: ALBUT/IPRATROP 3MG/0.5MG NEB 3 ML VIAL NEB SCH (01:26)
[2025-06-07] MEDS: FLECAINIDE ACETATE 100 MG TABLET PO SCH ×2 (01:39→20:36)
[2025-06-07] MEDS: ACETAMINOPHEN 325 MG TAB PO PRN (05:51)
--- NOTE | 2025-06-07 06:03 | Billing Data ---
Date of Service June 07, 2025 Coding Level of Care Code 20127 INT INP/OBS CARE
[2025-06-07 07:26] LABS: Hematocrit (blood only) 33.0 % (37.0-47.0); Hemoglobin 10.9 g/dl (12.0-16.0); Immature Granulocytes # (auto) 0.02 K/uL (0.01-0.20); Immature Granulocytes % (auto) 0.4 %; Mean Corpuscular Hemoglobin 31.7 pg (25.0-34.0); Mean Corpuscular Volume 95.9 fL (80.0-100.0); Platelet Count 198 K/uL (130-400); RDW Standard Deviation 50.1 fL (36.4-46.3); Red Blood Count 3.44 M/uL (4.20-5.40); White Blood Count 4.58 K/ul (4.8-10.8)
[2025-06-07 07:54] LABS: Anion Gap 5.0 (3-11); Blood Urea Nitrogen 18.0 mg/dl (6-23); Calcium 8.3 mg/dl (8.6-10.3); Carbon Dioxide 29.0 mmol/L (21-32); Chloride 103.0 mmol/L (98-107); Creatinine Clr Calc Pharmacy 66.6 ml/min; Glucose 89.0 mg/dl (70-99(Fasting)); Potassium 3.8 mmol/L (3.5-5.1); Sodium 137.0 mmol/L (136-145)
[2025-06-07] MEDS: SERTRALINE HCL 100 MG TABLET PO SCH (08:28)
[2025-06-07] MEDS: FLUTICASONE/VILANTEROL 200/25MCG 14 PUFFS/INHALER INH SCH (08:28)
[2025-06-07] MEDS: FUROSEMIDE 20 MG TAB PO SCH (08:29)
--- NOTE | 2025-06-07 09:49 | Electrocardiogram Report ---
Test Reason : Blood Pressure : */* mmHG Vent. Rate : 76 BPM Atrial Rate : * BPM P-R Int : * ms QRS Dur : 94 ms QT Int : 346 ms P-R-T Axes : * -37 -38 degrees QTcB Int : 389 ms Atrial fibrillation with occasional ventricular-paced complexes Left axis deviation Incomplete right bundle branch block Nonspecific ST and T wave abnormality Abnormal ECG When compared with ECG of 16-Mar-2025 12:00, (unconfirmed) Electronic ventricular pacemaker has replaced Electronic atrial pacemaker Confirmed by Peyman Perez ([id number]) on 06/07/2025 9:48:29 AM Referred By: Holli Wheeler Confirmed By: Peyman Perez
[2025-06-07] MEDS: ONDANSETRON INJ 2 MG/ML 2 ML VIAL IV PRN (10:20)
--- NOTE | 2025-06-07 13:03 | XCELERA ---
[id number]
[2025-06-07] MEDS: WARFARIN SOD 5 MG TAB PO SCH (15:10)
[2025-06-07] MEDS: FLUTICASONE PROPIONATE NA SPR 16 GM BTL NAE SCH (15:53)
--- NOTE | 2025-06-07 19:30 | Hospitalist Progress Note ---
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 Asthma exacerbation Improvement on nebulizers but not at her baseline, unclear exacerbating factor but worse this time of year ?allergies Duonebs Solu-medrol 40mg IV daily Continue her usual maintenance inhaler Paroxysmal A-fib/chronic warfarin Tachy-Francois syndrome w/ Pacemaker History of cardioversion on 08/2024 Noted to be in A-fib in the emergency department with rates of 7080s. Continue home metoprolol succinate 100 mg and flecainide Will continue home warfarin (INR goal of 23); INR in ED was of 2.2 Rate controlled on telemetry suspect less likely contributing towards shortness of breath Lower extremity swelling Suspect right sided heart failure from asthma exacerbation, main treatment as above but will also continue her usual Lasix dosing. VTE ppx: Warfarin Disposition - transfer to med/surg, medically stable for discharge but patient feels unsafe to go home with current SOBOE therefore planning on rehabilitation. PT/OT ordered. Admission and Anticipated Discharge Date Admission Date: June 06, 2025 Subjective No significant improvement since admission but only just started on steroids this morning. Abdi helping but not for long and main concern is she lives by herself ( in memory care) and she doesn't feel with her current level of shortness of breath on exertion she is able to manage at home by herself currently. She is looking into medical alert system but also willing to look into rehabilitation options prior to returning home. Physical Exam Respiratory: normal respiratory effort; no respiratory distress Auscultation: + wheezes (mild end expiratory); no diminished lung sounds, no crackles, no rales and no rhonchi Cardiovascular: Rate/Rhythm: regular rate and regular rhythm Heart Sounds: no murmur Extremities: + pedal edema (1+ b/l equal, tight skin) Results & Data Results & Data Vital Signs (Past 12 Hours) Vital Signs Temp Pulse Pulse Resp BP Pulse Ox O2 Del Method 06/07/25 15:59 89 06/07/25 15:38 37.2 C 92 H 18 121/78 92 Room Air 06/07/25 13:44 89 16 98 Room Air 06/07/25 11:11 36.7 C 88 18 115/76 96 Room Air 06/07/25 09:40 Room Air 06/07/25 07:32 36.6 C 69 18 114/71 95 Room Air 06/07/25 07:32 72 PG Care Time/CCT Total # of Minutes Spent Total Time Spent with Patient: Total time spent is greater than 50% in coordination of care (as documented) at patient's floor/unit and/or counseling patient: Coding Level of Care Code 19171 SUB INP/OBS CARE 2/35MIN Diagnoses Dyspnea on exertion R06.09 Chest tightness R07.89 Asthma J45.909 Paroxysmal atrial fibrillation I48.0 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
[2025-06-07] MEDS: MONTELUKAST SODIUM 10 MG TABLET PO SCH (20:37)
[2025-06-07] MEDS: METOPROLOL SUCC 50MG EXT REL TAB PO SCH (20:37)
[2025-06-08] MEDS: MELATONIN 3 MG TAB PO PRN
[2025-06-08] MEDS: ZOLPIDEM TARTRATE 5 MG TAB PO PRN (02:07)
[2025-06-08] MEDS: FUROSEMIDE 20 MG TAB PO SCH (08:09)
[2025-06-08] MEDS: POTASSIUM CHLORIDE 10 MEQ TABCR PO SCH (08:09)
[2025-06-08 08:10] LABS: Hematocrit (blood only) 34.2 % (37.0-47.0); Hemoglobin 10.8 g/dl (12.0-16.0); Immature Granulocytes # (auto) 0.03 K/uL (0.01-0.20); Immature Granulocytes % (auto) 0.5 %; Mean Corpuscular Hemoglobin 30.3 pg (25.0-34.0); Mean Corpuscular Volume 95.8 fL (80.0-100.0); Platelet Count 201 K/uL (130-400); RDW Standard Deviation 50.2 fL (36.4-46.3); Red Blood Count 3.57 M/uL (4.20-5.40); White Blood Count 6.19 K/ul (4.8-10.8)
[2025-06-08 08:34] LABS: Anion Gap 6.0 (3-11); Blood Urea Nitrogen 15.0 mg/dl (6-23); Calcium 8.2 mg/dl (8.6-10.3); Carbon Dioxide 28.0 mmol/L (21-32); Chloride 100.0 mmol/L (98-107); Creatinine Clr Calc Pharmacy 68.6 ml/min; Glucose 104.0 mg/dl (70-99(Fasting)); Potassium 3.6 mmol/L (3.5-5.1); Sodium 134.0 mmol/L (136-145)
[2025-06-08 08:43] LABS: INR 1.8 (0.9-1.1); Prothrombin Time 18.2 Seconds (9.0-12.0)
[2025-06-08] MEDS: guaiFENesin 600 MG TABCR PO SCH (12:20)
--- NOTE | 2025-06-08 12:28 | Electrocardiogram Report ---
Test Reason : Blood Pressure : */* mmHG Vent. Rate : 72 BPM Atrial Rate : 227 BPM P-R Int : * ms QRS Dur : 106 ms QT Int : 396 ms P-R-T Axes : * -48 -70 degrees QTcB Int : 433 ms Atrial flutter with variable A-V block with occasional ventricular-paced complexes Left anterior fascicular block Left ventricular hypertrophy with repolarization abnormality Abnormal ECG When compared with ECG of 06-Jun-2025 18:57, Vent. rate has decreased by 4 bpm Confirmed by Peyman Perez ([id number]) on 06/08/2025 12:28:22 PM Referred By: Holli Wheeler Confirmed By: Peyman Perez
[2025-06-08 14:20] LABS: Influenza A virus by PCR Negative (Neg); Influenza B virus by PCR Negative (Neg); SARS CoV2 RNA(COVID-19) Ceph NEGATIVE (Negative)
--- NOTE | 2025-06-08 20:55 | Hospitalist Progress Note ---
Date of Service June 08, 2025 Assessment & Plan (1) Dyspnea on exertion: (2) Chest tightness: (3) Asthma: (4) Paroxysmal atrial fibrillation: (5) [facility] current use of anticoagulant therapy: (6) Tachycardia-bradycardia syndrome: (7) SIADH (syndrome of inappropriate ADH production): (8) Pacemaker: (9) Atrial flutter: (10) Hypogammaglobulinemia: (11) CLL (chronic lymphocytic leukemia): Plan 74yo female with long-standing CLL not requiring treatment, microscopic colitis, sick sinus syndrome/tachy-luiz syndrome s/p pacemaker, atrial fibrillation/atrial flutter, hypertension, osteoporosis, SIADH, peripheral neuropathy, and long-standing asthma. Admitted 2nd to dyspnea on exertion with associated chest tightness. #chest tightness with activity/TILLMAN - -recent CTA chest without PEs, pneumonia, pulm edema, etc. -coronary calcifications noted -despite scheduled nebs & steroids her symptoms continue, especially with activity -HRs with activity are reasonable (110-120) -O2 sats with activity are wnl -peak flows pre & post-neb treatment today are wnl -I am concerned, given her lateral T wave inversions on EKG along with chest symptoms, that some of her presentation could be ischemic/cardiac in etiology as opposed to just her asthma only -I spoke with on-call [facility] who will consult tomorrow -we discussed pursuing stress test tomorrow; Dr Perez recommended stress echo to start; ordered for 06/09; patient made aware -in the event her symptoms are indeed due to asthma cont nebs & steroids -recheck a troponin in am -echo this admission - EF low-normal at 50-55% with normal LV wall motion and minimal valvular disease only #Asthma exacerbation - -see discussion above -cont solu-medrol 40mg IV daily -cont scheduled nebs -cont chronic inhalers #Paroxysmal A-fib/A-flutter on coumadin, h/o Tachy-Luiz syndrome with Pacemaker - -interrogation completed today -- patient spending much more time in a.fib/flutter as opposed to the past; now nearly 1/3 of the time in such; since admission has been in a.fib/flutter -follows with Dr Miller - consult placed to him for tomorrow -remains on meto succ & flecainide with adequate rates at rest and with activity ; since she is spending more & more time in fib/flutter -- need for flecainide?? defer that decision to cardiology -I don't think her chest tightness & dyspnea are due to fib/flutter as her rates topped out about 120 with walking -INR today 1.8 - cont warfarin, INR in am -of note - History of cardioversion 08/2024 #CLL - -cell lines satisfactory while here #hypogammaglobulinemia - -was due to receive her routine IVIG about this time -can check with pharmacy and see if we can administer this to her while here -nothing infectious on recent CTA chest #HTN - -controlled at this time dispo - timing of d/c, etc depends on results of stress test tomorrow care d/w cardiology (Dr Perez from [facility]) Admission and Anticipated Discharge Date Admission Date: June 06, 2025 Subjective patient reports ongoing mild cough no sputum her main complaints are that of dyspnea on exertion with just walking to the bathroom she also gets chest tightness w/ walking to the bathroom I had staff walk her in the hallway --> sats stayed mid 90s in room air, with lowest sat of ~93% HRs at peak walking --> 110-120 BPM tele - a.flutter [id number], most rates <100 I had respiratory therapy perform peak flows due to known asthma peak flow: 330 pre-neb treatment peak flow: 340 post-neb treatment "green zone" or predicted peak flow for age/sex/body weight -- about 340-350 EKG today - my reading - rate controlled a.flutter, T wave inversions anterolateral leads Review of Systems Review of Systems: gen - eating fair; had subjective fevers/chills before this hospitalization at home cv - chest tightness - central - with activity, not at rest pulm - cough, dyspnea on exertion, no dyspnea at rest GI - no abd pain Physical Exam Physical Exam: gen - NAD, sitting in chair mouth - MMM neck - no JVD heart - irregular, s1 s2, 2/6 systolic murmur LSB lungs - modestly decreased BS bases, otherwise CTA b/l with no rales or wheezes abd - soft NT ND BS+ ext - no edema, pulses 2+ b/l feet psych - a/o x 3 Results & Data Results & Data Vital Signs (Past 12 Hours) Vital Signs Temp Pulse Resp BP Pulse Ox Pulse Ox Pulse Ox 06/08/25 20:30 98 H 137/82 94 06/08/25 19:30 36.6 C 89 18 139/84 93 06/08/25 18:53 101 H 18 97 06/08/25 15:27 36.8 C 91 H 18 105/63 92 06/08/25 15:18 37.5 C 95 H 20 156/94 H 93 06/08/25 13:00 76 18 96 06/08/25 11:24 94 94 06/08/25 10:25 O2 Del Method O2 Flow Rate O2 Flow Rate 06/08/25 20:30 Room Air 06/08/25 19:30 Room Air 06/08/25 18:53 Room Air 06/08/25 15:27 Room Air 06/08/25 15:18 Room Air 06/08/25 13:00 Room Air 06/08/25 11:24 0 0 06/08/25 10:25 Room Air Laboratory Results Laboratory Results - last 24 hr 06/08/25 06/08/25 05:37 13:27 WBC 6.19 RBC 3.57 L Hgb 10.8 L Hct 34.2 L MCV 95.8 MCH 30.3 MCHC 31.6 L RDW Std Deviation 50.2 H RDW Coeff of Imani 14.2 Plt Count 201 MPV 10.2 Immature Gran % (Auto) 0.5 Neut % (Auto) 74.8 Lymph % (Auto) 15.3 [place] % (Auto) 8.2 Eos % (Auto) 1.0 Baso % (Auto) 0.2 Neut # (Auto) 4.63 Lymph # (Auto) 0.95 L [place] # (Auto) 0.51 Eos # (Auto) 0.06 Baso # (Auto) 0.01 Immature Gran # (Auto) 0.03 PT 18.2 H INR 1.8 H Sodium 134 L Potassium 3.6 Chloride 100 Carbon Dioxide 28 Anion Gap 6 BUN 15 Creatinine 0.68 Est Cr Clr Drug Dosing 68.6 eGFR 91.90 BUN/Creatinine Ratio 22.1 H Glucose 104 H Calcium 8.2 L SARS-CoV-2 (PCR) NEGATIVE Influenza Type A (PCR) Negative Influenza Type B (PCR) Negative RSV (RT-PCR) Negative Diagnostic Findings EKG 06/08 - my reading - aflutter with variable block, anterolateral T wave inversions Pacemaker interrogation - spending nearly 30% of time in afib/aflutter since last interrogation in March 2025 PG Care Time/CCT Total # of Minutes Spent Total Time Spent with Patient: Total time spent is greater than 50% in coordination of care (as documented) at patient's floor/unit and/or counseling patient: Coding Level of Care Code 78681 SUB INP/OBS CARE 3/50MIN Diagnoses Dyspnea on exertion R06.09 Chest tightness R07.89 Asthma J45.909 Paroxysmal atrial fibrillation I48.0 [facility] current use of anticoagulant therapy Z79.01 Tachycardia-bradycardia syndrome I49.5 SIADH (syndrome of inappropriate ADH production) E22.2 Pacemaker Z95.0 Atrial flutter I48.92 Hypogammaglobulinemia D80.1 CLL (chronic lymphocytic leukemia) C91.90
[2025-06-09 05:34] LABS: Anion Gap 5.0 (3-11); Blood Urea Nitrogen 19.0 mg/dl (6-23); Calcium 8.0 mg/dl (8.6-10.3); Carbon Dioxide 28.0 mmol/L (21-32); Chloride 102.0 mmol/L (98-107); Creatinine Clr Calc Pharmacy 62.2 ml/min; Glucose 94.0 mg/dl (70-99(Fasting)); Potassium 3.9 mmol/L (3.5-5.1); Sodium 135.0 mmol/L (136-145)
[2025-06-09 05:51] LABS: INR 2.3 (0.9-1.1); Prothrombin Time 22.9 Seconds (9.0-12.0)
[2025-06-09] MEDS: LORazepam 0.5 MG TAB PO STA (09:46)
[2025-06-09] MEDS: BENZONATATE 100 MG CAPSULE PO SCH (09:46)
[2025-06-09] MEDS: POLYETHYLENE (MIRALAX) 17 GM PACK PO PRN (12:35)
--- NOTE | 2025-06-09 13:28 | Hospitalist Progress Note ---
Date of Service June 09, 2025 Assessment & Plan (1) Dyspnea on exertion: (2) Chest tightness: (3) Asthma: (4) Paroxysmal atrial fibrillation: (5) [facility] current use of anticoagulant therapy: (6) Tachycardia-bradycardia syndrome: (7) SIADH (syndrome of inappropriate ADH production): (8) Pacemaker: (9) Atrial flutter: (10) Hypogammaglobulinemia: (11) CLL (chronic lymphocytic leukemia): Plan 74yo female with long-standing CLL not requiring treatment, microscopic colitis, sick sinus syndrome/tachy-luiz syndrome s/p pacemaker, atrial fibrillation/atrial flutter, hypertension, osteoporosis, SIADH, peripheral neuropathy, and long-standing asthma. Admitted 2nd to dyspnea on exertion with associated chest tightness. #chest tightness with activity/TILLMAN - -recent CTA chest without PEs, pneumonia, pulm edema, etc. -coronary calcifications noted -despite scheduled nebs & steroids her symptoms have improved but not resolved; continues with sx's with activity -HRs with activity are reasonable (110-120) -O2 sats with activity are wnl -peak flows pre & post-neb treatment yesterday were wnl -I am concerned, given her lateral T wave inversions on EKG along with chest symptoms, that some of her presentation could be ischemic/cardiac in etiology as opposed to just her asthma only -stress test recommended; could not do stress echo today; plan is for Lexiscan nuc stress 06/10 -NPO after MN for such -give ativan PO x 1 prior to stress to reduce anxiety -in the event her symptoms are indeed due to asthma cont nebs & steroids -troponin today scantly elevated - due to pulm edema? -echo this admission - EF low-normal at 50-55% with normal LV wall motion and minimal valvular disease only #Asthma exacerbation - -see discussion above -cont solu-medrol 40mg IV daily -cont scheduled nebs -cont chronic inhalers #Paroxysmal A-fib/A-flutter on coumadin, h/o Tachy-Luiz syndrome with Pacemaker - -interrogation completed -- patient spending much more time in a.fib/flutter as opposed to the past; now nearly 1/3 of the time in such; since admission has been in a.fib/flutter -follows with Dr Miller - consult placed to him for tomorrow -remains on meto succ & flecainide with adequate rates at rest and with activity; since she is spending more & more time in fib/flutter -- need for flecainide?? defer that decision to cardiology -I don't think her chest tightness & dyspnea are due to fib/flutter as her rates topped out about 120 with walking -INR today >2 - cont warfarin, INR in am -of note - History of cardioversion 08/2024 #CLL - -cell lines satisfactory while here #hypogammaglobulinemia - -was due to receive her routine IVIG about this time -gets 25gm of IVIG every 6 weeks by Blake Mukherjee H/O -nothing infectious on recent CTA chest -consider giving IVIG while here #HTN - -controlled at this time #?pulm edema - -lasix 20mg IV x 1 in addition to the PO dose given this am -re-eval tomorrow dispo - timing of d/c, etc depends on results of stress test tomorrow care d/w cardiology - Dr Gallo Admission and Anticipated Discharge Date Admission Date: June 06, 2025 Subjective patient went down for stress echo SBP was >200 she admitted to feeling anxious about the stress test despite waiting a while her BP did not improve and stress was canceled spoke with cardiology and Nuc study recommended in otis of stress echo as she may not be able to walk on treadmill that well after time and ativan her SBP came down to the 140s she did state that her breathing is better but still having dyspnea on exertion and mild chest tightness states that with walking up 1 flight of stairs at home she has dyspnea & chest tightness Review of Systems Review of Systems: CV - no chest pain at rest pulm - mild dry cough, no wheezing GI - no abd pain Physical Exam Physical Exam: gen - NAD, sitting in bed - looks anxious mouth - MMM neck - mild JVD today heart - irregular, s1 s2, 2/6 systolic murmur LSB lungs - mild b/l basilar rales, no wheezing abd - soft NT ND BS+ ext - trace to <1+ edema b/l, pulses 2+ b/l feet psych - a/o x 3 Results & Data Results & Data Vital Signs (Past 12 Hours) Vital Signs Temp Pulse Resp BP Pulse Ox O2 Del Method 06/09/25 12:22 36.8 C 69 24 101/70 93 Room Air 06/09/25 10:34 Nasal Cannula 06/09/25 09:30 36.8 C 77 18 145/84 H 95 Room Air 06/09/25 07:38 79 18 98 Room Air Laboratory Results Laboratory Results 06/08/25 06/09/25 13:27 04:47 PT 22.9 H INR 2.3 H Sodium 135 L Potassium 3.9 Chloride 102 Carbon Dioxide 28 Anion Gap 5 BUN 19 Creatinine 0.75 Est Cr Clr Drug Dosing 62.2 eGFR 84.01 BUN/Creatinine Ratio 25.3 H Glucose 94 Calcium 8.0 L Magnesium Troponin I High Sens 14.9 H SARS-CoV-2 (PCR) NEGATIVE Influenza Type A (PCR) Negative Influenza Type B (PCR) Negative RSV (RT-PCR) Negative PG Care Time/CCT Total # of Minutes Spent Total Time Spent with Patient: Total time spent is greater than 50% in coordination of care (as documented) at patient's floor/unit and/or counseling patient: Coding Level of Care Code 97079 SUB INP/OBS CARE 3/50MIN Diagnoses Dyspnea on exertion R06.09 Chest tightness R07.89 Asthma J45.909 Paroxysmal atrial fibrillation I48.0 [facility] current use of anticoagulant therapy Z79.01 Tachycardia-bradycardia syndrome I49.5 SIADH (syndrome of inappropriate ADH production) E22.2 Pacemaker Z95.0 Atrial flutter I48.92 Hypogammaglobulinemia D80.1 CLL (chronic lymphocytic leukemia) C91.90
[2025-06-09] MEDS: FUROSEMIDE INJ 20 MG/2 ML VIAL IV ONE (14:43)
[2025-06-10 06:32] LABS: Anion Gap 3.0 (3-11); Blood Urea Nitrogen 18.0 mg/dl (6-23); Calcium 7.8 mg/dl (8.6-10.3); Carbon Dioxide 29.0 mmol/L (21-32); Chloride 103.0 mmol/L (98-107); Creatinine Clr Calc Pharmacy 63.0 ml/min; Glucose 86.0 mg/dl (70-99(Fasting)); Magnesium 2.2 mg/dl (1.7-2.4); Potassium 4.1 mmol/L (3.5-5.1); Sodium 135.0 mmol/L (136-145)
[2025-06-10 06:45] LABS: INR 2.6 (0.9-1.1); Prothrombin Time 25.8 Seconds (9.0-12.0)
[2025-06-10] MEDS: ACETAMINOPHEN 1,000 MG/100 ML VIAL IV STA (06:45)
[2025-06-10] MEDS: LORazepam 0.5 MG TAB PO STA (08:44)
[2025-06-10] MEDS: REGADENOSON 0.4 MG/5 ML SYR IV ONE (15:14)
--- NOTE | 2025-06-10 16:02 | Myocardial Perfusion Study ---
Date of Service June 10, 2025 Myocardial Perfusion Study k Myocardial Perfusion Study Report Procedure: 1. Myocardial perfusion study performed in multiple views/images 2. Lexiscan pharmacologic stress ECG Indications: 1. Chest pain Ordering provider: Dr. Baird Procedural details: For the stress portion of the study, Lexiscan 0.4 mg was intravenously administered followed by a saline flush. This was followed by 30.1 mCi of technetium 99m Cardiolite, injected at 10:10 AM on 06/10/2025. 30 minutes following the injection, imaging of the heart was performed in multiple projections. For the rest portion of the study, 10.3 mCi technetium 99m Cardiolite was injected intravenously at 8:10 AM on 06/10/2025. 1 hour following the injection, imaging of the heart was performed in the same projections. Lexiscan stress ECG: Resting ECG demonstrated: Atrial fibrillation 74 bpm. Ventricular paced complexes. Nonspecific ST/T wave abnormality. Maximum heart rate: 81 bpm Maximal, age-predicted heart rate: 55% Resting blood pressure: 120/85 mmHg Maximum blood pressure: 125/[address] changes: None Arrhythmia: Atrial fibrillation throughout with ventricular paced complexes. Symptoms: Chest tightness Findings: Rotating raw imaging demonstrated no significant lung uptake. There is no significant motion artifact. Heart size appeared normal. Myocardial perfusion demonstrated a small area of mildly reduced uptake involving the distal anterolateral wall, which appeared to be mostly fixed in post-rest and rest imaging with only mild reversibility. Ejection fraction: 53% Wall motion: No regional wall motion abnormalities. No significant transient ischemic dilation. Impression: 1. Possible very small area of distal anterolateral ischemia. 2. No regional wall motion abnormalities. EF 53%. Wall motion and EF analysis may be limited due to atrial fibrillation. 3. Lexiscan induced chest tightness. 4. Nondiagnostic Lexiscan ECG. [facility] Myocardial perfusion code Procedure Code Procedure 1: Myocardial Perfusion Codes: 97301 Cardiovascular Stress Test, multiple Procedure 2: Myocardial Perfusion Codes: 43187 Cardiovascular Stress Test, supervision only Procedure 3: Myocardial Perfusion Codes: 11867 Cardiovascular Stress Test, interpretation and report
[2025-06-10] MEDS: FUROSEMIDE 20 MG TAB PO ONE (18:15)
[2025-06-10] MEDS: ASPIRIN 81 MG ECTAB PO SCH (18:15)
--- NOTE | 2025-06-10 20:14 | Hospitalist Progress Note ---
Date of Service June 10, 2025 Assessment & Plan (1) Dyspnea on exertion: (2) Chest tightness: (3) Asthma: (4) Paroxysmal atrial fibrillation: (5) nursing home current use of anticoagulant therapy: (6) Tachycardia-bradycardia syndrome: (7) SIADH (syndrome of inappropriate ADH production): (8) Pacemaker: (9) Atrial flutter: (10) Hypogammaglobulinemia: (11) CLL (chronic lymphocytic leukemia): Plan 74yo female with long-standing CLL not requiring treatment, microscopic colitis, sick sinus syndrome/tachy-luiz syndrome s/p pacemaker, atrial fibrillation/atrial flutter, hypertension, osteoporosis, SIADH, peripheral neuropathy, and long-standing asthma. Admitted 2nd to dyspnea on exertion with associated chest tightness. #chest tightness with activity/TILLMAN - -recent CTA chest without PEs, pneumonia, pulm edema, etc. -coronary calcifications noted -despite scheduled nebs & steroids her symptoms have improved but not resolved; continues with sx's with activity - but this is chronic based on her history and based on records reviewed (pulmonary office notes, etc) -HRs with activity remain reasonable (110-120) -O2 sats with activity are wnl -peak flows pre & post-neb treatment this week were wnl -I had her do a peak flow for me while I was visiting her; goal was 350, she was about 340 -I am concerned, given her lateral T wave inversions on EKG along with chest symptoms, that some of her presentation could be ischemic/cardiac in etiology as opposed to just her asthma only -nuc stress test completed; possible area of anterolateral ischemia ? -discussed the stress test results with on-call [facility] -they advise addition of aspirin +/- statin and f/u with Dr Miller in the office after d/c (she sees Dr Miller regularly) -if symptoms persist then elective L heart cath can be entertained in the near-future -in the event her symptoms are indeed due to asthma cont nebs & steroids but ok to d/c the IV solumedrol and change to PO prednisone in am tomorrow -echo this admission - EF low-normal at 50-55% with normal LV wall motion and minimal valvular disease only -EF 53% on lexiscan nuc stress test #Asthma exacerbation - -see discussion above -cont steroids but stop solu-medrol and change to PO prednisone on 06/11 -cont chronic inhalers and nebs #Paroxysmal A-fib/A-flutter on coumadin, h/o Tachy-Luiz syndrome with Pacemaker - -interrogation completed -- patient spending much more time in a.fib/flutter as opposed to the past; now nearly 1/3 of the time in such; since admission has been in a.fib/flutter -follows with Dr Miller - consult placed to him for tomorrow -remains on meto succ & flecainide with adequate rates at rest and with activity; since she is spending more & more time in fib/flutter -- need for flecainide?? defer that decision to cardiology -I don't think her chest tightness & dyspnea are due to fib/flutter as her rates topped out about 120 with walking -INR today >2 - cont warfarin, INR in am again -of note - History of cardioversion 08/2024 #CLL - -cell lines satisfactory while here -recheck CBC in am for completeness sake #hypogammaglobulinemia - -was due to receive her routine IVIG about this time -gets 25gm of IVIG every 6 weeks by Blake Mukherjee H/O -nothing infectious on recent CTA chest #HTN - -controlled at this time #?pulm edema - -lasix 20mg IV x 1 given yesterday in addition to normal PO dose in am -LE edema improved today; lung exam stable -will give additional 20mg of PO lasix today -repeat labs am -re-eval tomorrow dispo - daughter extensively updated at bedside watch overnight d/c in am on 06/11 Admission and Anticipated Discharge Date Admission Date: June 06, 2025 Subjective patient states the stress test today was taxing and she didn't feel that great during the test however, since coming back from the nuc stress, she has eaten/drank w/o difficulty breathing is overall much improved in comparison to previous days still some cough - mainly dry no wheezing chest tightness with exertion is better we discussed the nuc stress test results in detail daughter was present for this discussion I had the staff walk patient in the hallway with walking HRs topped out about 110 and sats were >90% the entire walk Review of Systems Review of Systems: GI - no N/V pulm - no change in symptoms CV - no orthopnea; edema is better; no pain at rest Physical Exam Physical Exam: gen - NAD, sitting in bed, looks good today mouth - MMM neck - JVD improved heart - irregular, s1 s2, 2/6 systolic murmur LSB, rate <100 lungs - minimal L basilar rales (dry), no rales R base; no wheezing; normal airation abd - soft NT ND BS+ ext - no edema b/l, pulses 2+ b/l feet psych - a/o x 3 Results & Data Results & Data Vital Signs (Past 12 Hours) Vital Signs Temp Pulse Pulse Pulse Resp Resp Resp 06/10/25 19:51 89 17 06/10/25 19:13 36.3 C L 85 18 06/10/25 18:23 110 H 98 H 26 H 24 06/10/25 15:52 36.4 C L 80 18 06/10/25 13:40 76 18 06/10/25 12:05 36.3 C L 63 18 06/10/25 09:26 06/10/25 08:37 36.4 C L 70 18 BP BP Pulse Ox Pulse Ox Pulse Ox O2 Del Method O2 Flow Rate 06/10/25 19:51 96 Room Air 06/10/25 19:13 147/86 H 96 Room Air 06/10/25 18:23 95 95 Room Air 06/10/25 15:52 116/81 94 Room Air 06/10/25 13:40 100 Room Air 06/10/25 12:05 163/95 H 97 Room Air 06/10/25 09:26 Nasal Cannula 2 06/10/25 08:37 135/80 98 Room Air FiO2 06/10/25 19:51 06/10/25 19:13 06/10/25 18:23 06/10/25 15:52 06/10/25 13:40 21 06/10/25 12:05 06/10/25 09:26 06/10/25 08:37 Laboratory Results Laboratory Results - last 24 hr 06/10/25 05:45 PT 25.8 H INR 2.6 H Sodium 135 L Potassium 4.1 Chloride 103 Carbon Dioxide 29 Anion Gap 3 BUN 18 Creatinine 0.74 Est Cr Clr Drug Dosing 63.0 eGFR 85.38 BUN/Creatinine Ratio 24.3 H Glucose 86 Calcium 7.8 L Magnesium 2.2 Diagnostic Findings nuc stress test: Findings: Rotating raw imaging demonstrated no significant lung uptake. There is no significant motion artifact. Heart size appeared normal. Myocardial perfusion demonstrated a small area of mildly reduced uptake involving the distal anterolateral wall, which appeared to be mostly fixed in post-rest and rest imaging with only mild reversibility. Ejection fraction: 53% Wall motion: No regional wall motion abnormalities. No significant transient ischemic dilation. Impression: 1. Possible very small area of distal anterolateral ischemia. 2. No regional wall motion abnormalities. EF 53%. Wall motion and EF analysis may be limited due to atrial fibrillation. 3. Lexiscan induced chest tightness. 4. Nondiagnostic Lexiscan ECG. PG Care Time/CCT Total # of Minutes Spent Total Time Spent with Patient: Total time spent is greater than 50% in coordination of care (as documented) at patient's floor/unit and/or counseling patient: Coding Level of Care Code 64202 SUB INP/OBS CARE 3/50MIN Diagnoses Dyspnea on exertion R06.09 Chest tightness R07.89 Asthma J45.909 Paroxysmal atrial fibrillation I48.0 nursing home current use of anticoagulant therapy Z79.01 Tachycardia-bradycardia syndrome I49.5 SIADH (syndrome of inappropriate ADH production) E22.2 Pacemaker Z95.0 Atrial flutter I48.92 Hypogammaglobulinemia D80.1 CLL (chronic lymphocytic leukemia) C91.90
--- NOTE | 2025-06-10 22:37 | Electrocardiogram Report ---
Test Reason : Blood Pressure : */* mmHG Vent. Rate : 72 BPM Atrial Rate : * BPM P-R Int : * ms QRS Dur : 98 ms QT Int : 400 ms P-R-T Axes : * -26 -32 degrees QTcB Int : 438 ms Atrial fibrillation Minimal voltage criteria for LVH, may be normal variant ( [place] product ) T wave abnormality, consider anterolateral ischemia Abnormal ECG When compared with ECG of 08-Jun-2025 10:11, Ventricular paced complexes are no longer present Confirmed by Heriberto Gallo ([id number]) on 06/10/2025 10:37:07 PM Referred By: Holli Wheeler Confirmed By: Heriberto Gallo
--- NOTE | 2025-06-10 22:38 | Electrocardiogram Report ---
Test Reason : Blood Pressure : */* mmHG Vent. Rate : 67 BPM Atrial Rate : 277 BPM P-R Int : * ms QRS Dur : 138 ms QT Int : 372 ms P-R-T Axes : * -32 -23 degrees QTcB Int : 393 ms Atrial fibrillation with occasional ventricular-paced complexes Left axis deviation Non-specific intra-ventricular conduction block Minimal voltage criteria for LVH, may be normal variant ( [place] product ) Nonspecific T wave abnormality Abnormal ECG When compared with ECG of 09-Jun-2025 05:14, Ventricular paced complexes are now present Confirmed by Heriberto Gallo ([id number]) on 06/10/2025 10:38:00 PM Referred By: Holli Wheeler Confirmed By: Heriberto Gallo
[2025-06-11 07:19] LABS: Hematocrit (blood only) 33.7 % (37.0-47.0); Hemoglobin 10.9 g/dl (12.0-16.0); Mean Corpuscular Hemoglobin 30.8 pg (25.0-34.0); Mean Corpuscular Volume 95.2 fL (80.0-100.0); Platelet Count 222 K/uL (130-400); RDW Standard Deviation 51.4 fL (36.4-46.3); Red Blood Count 3.54 M/uL (4.20-5.40); White Blood Count 7.05 K/ul (4.8-10.8)
[2025-06-11 07:39] LABS: INR 3.0 (0.9-1.1); Prothrombin Time 29.4 Seconds (9.0-12.0)
[2025-06-11 07:44] LABS: Anion Gap 4.0 (3-11); Blood Urea Nitrogen 13.0 mg/dl (6-23); Calcium 7.7 mg/dl (8.6-10.3); Carbon Dioxide 29.0 mmol/L (21-32); Chloride 100.0 mmol/L (98-107); Creatinine Clr Calc Pharmacy 67.6 ml/min; Glucose 98.0 mg/dl (70-99(Fasting)); Potassium 4.2 mmol/L (3.5-5.1); Sodium 133.0 mmol/L (136-145)
[2025-06-11 07:52] VITALS: BP 113/66; TEMP 97.9
[2025-06-11] MEDS: predniSONE 20 MG TAB PO SCH (09:38)
--- NOTE | 2025-06-11 11:47 | Discharge Summary ---
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 Admitted 2nd to dyspnea on exertion with associated chest tightness. #chest tightness with activity/TILLMAN - -recent CTA chest without PEs, pneumonia, pulm edema, etc. -coronary calcifications noted -despite scheduled nebs & steroids her symptoms have improved but not resolved; continues with sx's with activity - but this is chronic based on her history and based on records reviewed (pulmonary office notes, etc) -HRs with activity remain reasonable (110-120) -O2 sats with activity are wnl -peak flows pre & post-neb treatment this week were wnl -I had her do a peak flow for me while I was visiting her; goal was 350, she was about 340 -I am concerned, given her lateral T wave inversions on EKG along with chest symptoms, that some of her presentation could be ischemic/cardiac in etiology as opposed to just her asthma only -nuc stress test completed; possible area of anterolateral ischemia ? -discussed the stress test results with on-call [facility] [place]they advise addition of aspirin +/- statin and f/u with Dr Miller in the office after d/c (she sees Dr Miller regularly) -if symptoms persist then elective L heart cath can be entertained in the near-future -in the event her symptoms are indeed due to asthma cont nebs & steroids but ok to d/c the IV solumedrol and change to PO prednisone in am tomorrow -echo this admission - EF low-normal at 50-55% with normal LV wall motion and minimal valvular disease only -EF 53% on lexiscan nuc stress test #Asthma exacerbation - -see discussion above -cont steroids but stop solu-medrol and change to PO prednisone on 06/11 -cont chronic inhalers and nebs #Paroxysmal A-fib/A-flutter on coumadin, h/o Tachy-Francois syndrome with Pacemaker - -interrogation completed -- patient spending much more time in a.fib/flutter as opposed to the past; now nearly 1/3 of the time in such; since admission has been in a.fib/flutter -follows with Dr Miller - consult placed to him for tomorrow -remains on meto succ & flecainide with adequate rates at rest and with activity; since she is spending more & more time in fib/flutter -- need for flecainide?? defer that decision to cardiology -I don't think her chest tightness & dyspnea are due to fib/flutter as her rates topped out about 120 with walking -INR today >2 - cont warfarin, INR in am again -of note - History of cardioversion 08/2024 #CLL - -cell lines satisfactory while here -recheck CBC in am for completeness sake #hypogammaglobulinemia - -was due to receive her routine IVIG about this time -gets 25gm of IVIG every 6 weeks by Blake Mukherjee H/O -nothing infectious on recent CTA chest #HTN - -controlled at this time #?pulm edema - -lasix 20mg IV x 1 given yesterday in addition to normal PO dose in am -LE edema improved today; lung exam stable -will give additional 20mg of PO lasix today -repeat labs am -re-eval tomorrow dispo - daughter extensively updated at bedside watch overnight d/c in am on 06/11 Admission HPI Per Admitting Provider Patient is a 74-year-old female with past medical history of CLL, microscopic colitis, sick sinus syndrome, paroxysmal atrial fibrillation, permanent pacemaker (07/18), hypertension, osteoporosis, SIADH, peripheral neuropathy, and asthma who came to the emergency department due to noted dyspnea on exertion as the most significant over the course of this past week. The last weeks of April patient had been experiencing persistent cough with some shortness of breath. Initially thought to be related to her known asthma, and therefore started on a prednisone burst along with as needed use of her home nebulizer and rescue inhalers. She noticed that her symptoms fail to improve, she went to her PCP office who ordered a chest x-ray which showed changes that would be suggestive of atelectasis versus pulmonary edema versus infection. Around this time she was started on an 10-day course of Augmentin with improvement of symptoms and resolution noted in repeat chest x-ray. However, over this past weekend, patient states that she had woken up twice around 23 AM due to chest tightness and shortness of breath. She used her home nebulizer treatment with improvement of symptoms and she went back to bed, but woke up with similar symptoms shortly after. Since then, she has been getting dyspneic with ambulation that improves when she uses her rescue inhaler. On this time, she had been experiencing associated substernal chest tightness that is nonradiating, but denies any other symptoms such as fevers, chills, weakness, lightheadedness, syncopal episodes, or any other systemic symptoms. ED Course: Given aspirin 324 mg p.o. x 1, given fentanyl 25 mcg x 1, given Zofran 4 mg IV x 1 Labs/Imaging: CBC without leukocytosis, hemoglobin 12, platelets of 235. INR of 2.2 (patient currently on warfarin). Mild hyponatremia of 135, potassium of 3.9, creatinine is 0.69, blood sugar of 91. LFTs unremarkable. Troponin negative x 2. BNP of 470. Chest x-ray without acute changes. CTA without evidence of PE. Medical History: [Reviewed] Medications: [Reviewed] Surgical History: [Reviewed] Family history: [Reviewed] Allergies: [Reviewed] Social History: [Reviewed] Code Status: DNI Discharge Exam gen - NAD, sitting in bed, looks good today mouth - MMM neck - JVD improved heart - irregular, s1 s2, 2/6 systolic murmur LSB, rate <100 lungs - minimal L basilar rales (dry), no rales R base; no wheezing; normal airation abd - soft NT ND BS+ ext - no edema b/l, pulses 2+ b/l feet psych - a/o x 3 Discharge Plan Discharge Items Reason For Visit: CHEST TIGHTNESS Condition on Discharge: Good Follow-up/Referrals: Holli Wheeler DO [Primary Care Provider] - Medications and DC Order Prescriptions: No Action Airsupra 90-80 mcg/actuation HFA aerosol inhaler 2 inh inhalation 6XD PRN (Reason: Shortness Of Breath Or Wheezing) montelukast 10 mg tablet 10 mg PO QPM lorazepam 0.5 mg tablet 0.5 mg PO Q8H PRN (Reason: anxiety) Qty: 30 1RF flecainide 100 mg tablet 100 mg PO Q12H Qty: 180 3RF sertraline 100 mg tablet 100 mg PO DAILY Qty: 90 3RF metoprolol succinate 50 mg tablet extended release 24 hr 100 mg PO QPM Qty: 180 3RF Rx Instructions: TAKE 2 TABLETS BY MOUTH EVERY DAY Prolia 60 mg/mL syringe 60 mg subcut ONCE Qty: 1 1RF zolpidem 5 mg tablet 5 mg PO HS PRN (Reason: insomnia) Qty: 15 1RF furosemide 20 mg tablet See Rx Instructions PO .COMPLEX Qty: 180 3RF Rx Instructions: 2 tablets every other day, 1 tablet every other day orally; budesonide 180 mcg/actuation aerosol powdr breath activated 1 inh inhalation BID montelukast [Singulair] 10 mg tablet 10 mg PO DAILY ipratropium-albuterol 0.5 mg-3 mg(2.5 mg base)/3 mL solution for nebulization 3 ml INHALATION QID PRN (Reason: Shortness Of Breath Or Wheezing) Qty: 180 2RF cetirizine [Zyrtec] 10 mg Tablet 10 mg PO QPM prochlorperazine maleate 10 mg tablet 10 mg PO Q6H PRN (Reason: Nausea) vitamin B complex Capsule 1 cap PO QAM Rx Instructions: 50 mg Raw Green [employer]foods Caps 500 mg capsule 500 mg PO QPM Gammagard Liquid 10 % Solution 25 g IV .4-6WEEKS Patient Comments: gets an infusion every 6 wks Rx Instructions: Due last week in january. Probiotic 10 billion cell Capsule 10,000 mmu cells PO QAM Vitamin C (ascorbate calcium) 814 mg/gram powder 400 mg PO QAM Calcium Magnesium plus D 400-167-133 mg-mg-unit tablet 1 tab PO 3XWK Rx Instructions: MON, WED, & FRI. One-A-Day Womens Formula 18 mg iron-400 mcg-500 mg Tablet 1 tab PO QAM acetaminophen 325 mg Tablet 650 mg PO Q4H PRN (Reason: pain) Qty: 30 0RF potassium chloride 10 mEq tablet extended release 10 meq PO 3XWK Rx Instructions: 10 mEq orally; TAKE THIS MEDICATION EVERY FRIDAY,FRIDAY AND FRIDAY warfarin 5 mg tablet 5 mg PO QPM sodium chloride 7 % solution for nebulization 1 inh inhalation BID PRN (Reason: DIRECTED) Admission Data Admit Date/Time: 06/06/25 22:54 Attending Provider: Tye Baird Admit Provider: Josephine Hoffman Primary Care Provider: Holli Wheeler Other Providers: To Cole Other Interventions: Discharge Summary Assessment (RN) Last Done: 06/11/25 10:15 Hospital Stay Data Consultations 06/06/25 21:59 ED Decision to Admit Stat Diagnostic Imagining Performed 06/06/25 19:59 CT angio chest PE protocol Stat Coding Diagnoses Dyspnea on exertion R06.09 Chest tightness R07.89 Asthma J45.909 Paroxysmal atrial fibrillation I48.0 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
[2025-06-11 12:56] VITALS: PULSE 80; RESP 16; O2SAT 97
== END 2025-06-11 13:51 | disposition home or self-care (01) | DRG 202 ==
LOC: ED 17:29 → SUATTDRO 22:54 → 2N 22:54

== ENCOUNTER 2025-06-19 09:32 | Inpatient (IN) ==
--- NOTE | 2025-06-19 09:47 | Emergency Department Note ---
Impression & Plan LLL pneumonia, Chest tightness, TILLMAN (dyspnea on exertion), Abnormal heart rhythm, Elevated troponin ED Provider Note CHIEF COMPLAINT: Fever, shortness of breath HISTORY OF PRESENTING ILLNESS: This 74-year-old female patient presents to the emergency department with her daughter for evaluation of a fever and shortness of breath. The patient was recently admitted for shortness of breath and had a stress test that was inconclusive. The patient states that she started with a fever 3 days ago and it reached 101 F this morning. The shortness of breath is also getting worse and she is having trouble catching her breath. The patient states that she can only take a few steps without becoming short of breath. She states that the cough is so bad that she sometimes has a pink sputum come up. The patient states that she has felt a little disoriented with the fevers recently as well. She denies any urinary symptoms other than decreased urination from her increased Lasix dose. She does feel a little dehydrated from the Lasix. Having nausea, but no vomiting or abdominal pain. Compazine has helped with her nausea. She is also having a mild headache. She continues with tightness in her chest, but not as severe and not as constant as she had during her last admission. She had Tylenol 1000 mg 30 min prior to arrival. The patient had completed a prednisone taper after discharge. The patient had held her Coumadin for 2 days while on the prednisone taper. She was also started on 81 mg aspirin during her admission. The patient has an appointment with cardiology on 06/23/2025 to discuss possible cardiac catheterization for further evaluation of the inconclusive stress test. The patient has also been taking Lasix 40 mg to help with fluid retention from her recent steroid course. The patient's INR when checked on 06/17/2025 was subtherapeutic at 1.7. The patient typically takes 5 mg of Coumadin a day, but was advised to take a 7.5 mg dose on 06/17/2025 when she saw the anticoagulation clinic. She has not missed any more doses of the Coumadin. REVIEW OF SYSTEMS: See HPI for pertinent positives and pertinent negatives. ALLERGIES: See below MEDICATIONS: See below PAST MEDICAL HISTORY: See below PHYSICAL EXAM: Vital Signs: Vitals are noted on the nurse's note and reviewed by myself. GENERAL: Non toxic in appearance and in no acute distress. SKIN: Capillary reflex less than 2 seconds. HEAD: Normocephalic, atraumatic. EARS: Bilateral external auditory canals clear without tragus tenderness. Bilateral tympanic membranes pearly gaines without erythema or effusion. No mastoid tenderness bilaterally. EYES: Pupils equal round and reactive to light and accommodation. Conjunctivae without injection, sclerae without icterus. Extraocular movements intact. NOSE: Patent, turbinates inflamed with no discharge. No sinus tenderness. MOUTH: Mucous membranes moist. Airway patent, uvula midline. Pharynx is mildly erythematous and edematous without exudate. Pharynx without postnasal drip. No evidence for peritonsillar abscess. NECK: Supple without nuchal rigidity. No significant lymphadenopathy. No meningeal signs. HEART: Regular rate and rhythm without murmurs gallops or rubs. LUNGS: Clear to auscultation bilaterally, but with wheezes throughout and somewhat decreased air movement bilaterally. No obvious rales or rhonchi. Mild accessory muscle use, but no retractions and the patient is able to speak in a complete sentence. ABDOMEN: Positive bowel sounds x 4. Normal tympanic percussion. Soft, nontender to palpation. No masses or hepatosplenomegaly. No guarding, rigidity, or rebound tenderness. No CVA tenderness. No focal RLQ or LLQ tenderness. MUSCULOSKELETAL: No erythema, significant edema, or warmth of the bilateral lower extremities. No cording felt. Peripheral pulses 2+ and equal in the bilateral upper and lower extremities. NEURO: Patient was alert and oriented. DIFFERENTIAL DIAGNOSIS: Differential diagnosis includes Influenza, RSV, COVID, viral syndrome, otitis media, otitis externa, pharyngitis, strep throat, pneumonia, meningitis, urinary tract infection, cellulitis, abscess, sepsis, bacteremia, pneumothorax, hemothorax, PE, PA, pericarditis, myocarditis, airway obstruction, aspiration, pulmonary edema, asthma, COPD, CHF, pleurisy, metabolic acidosis, anemia, neoplasm, or others. ED COURSE AND MEDICAL DECISION MAKING: HISTORY FROM INDEPENDENT HISTORIAN: Additional history obtained from the patient's daughter MEDICATIONS GIVEN: A total 1 L normal saline solution bolus. DuoNeb treatment. Rocephin 2 g IV. Zithromax 500 mg p.o. Morphine 2 mg IV. Zofran 4 mg IV. MONITOR: Continuous phototypesetting equipment monitor: Order was placed for continuous phototypesetting equipment monitor. Patient was placed on the phototypesetting equipment monitor and continuous pulse ox. Patient was noted to be in sinus tachycardia at an initial rate of 110 bpm per my interpretation. EKG: EKG was interpreted by myself as atrial flutter with occasional paced rhythm at 85 bpm with no acute ST or T wave changes. The patient did have a rhythm strip on the monitor at 11:51 AM that showed a wide-complex rhythm that appeared similar to V. tach, but only at a rate of 100. When nursing staff tried to get an EKG, her EKG showed atrial flutter at 88 bpm with no significant change from her previous EKG. The patient had another similar episode on the monitor and a repeat EKG by nursing staff again showed no significant change from her previous EKG. INTERPRETATION OF LABS: I interpreted the labs with full lab results as below in the lab section of this note. Laboratory results pertinent to the emergent complaint are discussed in the MDM section below. The patient was advised to follow up with their PCP and/or specialist(s) for further outpatient monitoring and management of any abnormal results. INTERPRETATION OF IMAGING: Imaging studies were interpreted by myself and read by radiology as per the imaging section of this note. The patient was advised to follow up with their PCP and/or specialist(s) for further outpatient management of any non-emergent abnormal findings. CT scan of the head without contrast showed no acute intracranial findings within limitations of the study. Mild volume loss and chronic microvascular ischemic changes. CTA of the chest showed no evidence for PE. It does show a dense consolidation involving the left lower lobe consistent with pneumonia. Findings of CHF with cardiomegaly and mild pulmonary edema. Scattered atelectasis. Sequela of remote granulomatous infection. EXTERNAL RECORDS REVIEWED: I reviewed the patient's most recent admission, her recent PCP visit, and her recent anticoagulation visit as summarized above. CONSULTATIONS: On-call hospitalist CRITICAL CARE: I have personally spent 50 minutes of critical care time in the direct management of this patient. This includes bedside care, interpretation of diagnostic studies, and testing, discussion with consultants, patient, and family members, and other required patient management activities. This 50 minutes is in excess of all separately billable procedures. MDM SUMMARY: I examined the patient. The patient was recently admitted for shortness of breath. She was discharged home on a course of steroids and addition to her inhalers. The patient's stress test was inconclusive and she has an appointment on 06/23/2025 with cardiology to discuss possible catheterization. The patient's INR was also recently subtherapeutic and she has been having to take increased Lasix because of fluid retention from the steroids. The patient then started with a fever 3 days ago. The cough is getting progressively worse and she has had some pink sputum intermittently when she coughs. The patient took Tylenol 30 minutes prior to arrival and she feels like she is starting to break her fever. An IV lock was placed and labs were drawn. There is concern for possible sepsis on exam as the patient was tachycardic and febrile. Her white blood cell count was elevated at 12.55. However, her lactate and procalcitonin were normal. Blood cultures were drawn and are pending. The patient was initially only given 500 mL normal saline solution bolus due to her history of CHF. After results of the patient's CT scan, she was given an additional 500 mL normal saline solution bolus, but full sepsis fluids were held due to the patient's CHF and concern for fluid overload. The patient was given Rocephin 2 g IV and Zithromax 500 mg p.o. The patient had some wheezing on exam initially, but this resolved after a DuoNeb treatment. After the patient returned from CT scan, she felt a little more short of breath with some increased tightness in her chest. She did have an episode on the monitor that was wide-complex and appeared like V. tach, but was only at a rate of 100 bpm or less. This was reviewed with Dr. Fish and I reevaluated the patient. Nursing staff attempted to obtain an EKG capturing the abnormal rhythm, but the EKG did not show any acute changes from her previous EKG. The patient did have another episode in the ER of similar findings on the monitor, but again EKG could not confirm these findings and again repeat exam was not significantly changed. The patient was given morphine 2 mg IV and Zofran 4 mg IV for the discomfort in her chest with some improvement. The patient's high- sensitivity troponin was initially elevated at 22.7, but improved to 20.2 on repeat. We do not suspect STEMI. The patient's white blood cell count is elevated at 12.55. Hemoglobin low at 11.1. Platelet count normal at 185. INR is therapeutic at 2.5. Sodium low at 131 and glucose 108, but CMP otherwise without concerning abnormalities. Lactate and procalcitonin were normal. Magnesium normal. BNP elevated at 686. High-sensitivity troponin 22.7 with repeat of 20.2. Urinalysis does not appear consistent with UTI. Group A strep PCR negative. Respiratory BioFire negative. Anaplasma and Babesia smear negative with DNA PCR still pending. Lyme disease screen negative. CT scan of the head without contrast showed no acute intracranial findings within limitations of the study. Mild volume loss and chronic microvascular ischemic changes. CTA of the chest showed no evidence for PE. It does show a dense consolidation involving the left lower lobe consistent with pneumonia. Findings of CHF with cardiomegaly and mild pulmonary edema. Scattered atelectasis. Sequela of remote granulomatous infection. I had a meaningful discussion about this patient with Dr. Fish who agrees with my assessment and the treatment plan. The patient will require admission for the left lower lobe pneumonia, initial concern for possible sepsis, dyspnea on exertion, abnormal rhythms on the monitor, elevated troponin levels, and elevated BNP. I spoke with the on-call hospitalist who agreed to admit the patient for further evaluation and treatment. Please refer to their dictation for further details. The patient's care was transferred in stable condition. DIAGNOSIS: Left lower lobe pneumonia Dyspnea on exertion Chest tightness Abnormal heart rhythm with elevated troponin Past Med/Surg History Problem List (Updated 06/19/25 @ 20:37 by Salome Trevizo PA-C) Elevated troponin (Acute) Abnormal heart rhythm (Acute) TILLMAN (dyspnea on exertion) (Acute) Chest tightness (Acute) LLL pneumonia (Acute) Community acquired pneumonia Atrial flutter fib/flutter Dyspnea on exertion (Acute) Chest tightness (Acute) Collagenous colitis Immunodeficiency syndrome Situational stress Allergic rhinitis with postnasal drip Asthma Osteoarthritis, knee Idiopathic polyneuropathy TILLMAN (dyspnea on exertion) Mitral regurgitation ARMIDA (stress urinary incontinence, female) Hypogammaglobulinemia [facility] current use of anticoagulant therapy (Chronic) Paroxysmal atrial fibrillation (Chronic) Hypertension (Chronic) CLL (chronic lymphocytic leukemia) (Chronic) Chronic lymphocytosis. Cardiac murmur Mild TR and MR noted on 2017 echo. Peptic ulcer disease H/O Tachycardia-bradycardia syndrome (Acute) hx of--reason for pacemaker placement SIADH (syndrome of inappropriate ADH production) VALORIE (mycobacterium avium-intracellulare) hx 2019 Osteoporosis Medical History Pacemaker medtronic dual chamber History of rib fracture (05/25/22) radial, clavicle and rib fractures from fall History of hip fracture (~10/08/21) Pelvis fracture (01/10/23) superior and inferior pubic ramus fracture on the left side>no current issues Abnormal gait Immunodeficiency syndrome Hyponatremia hx-historically run low for years Mycobacterium avium complex Osteoarthritis On anticoagulant therapy xarelto daily Anemia hx of---was receiving IV Iron infusions Migraine H/O Asthma hx of, inh and neb prn Surgical History History of cataract surgery History of permanent cardiac pacemaker placement (~07/07/20) meditronic dual chamber pacemaker placed @ [facility]--follows with Dr. Miller>next check will be 03/02/24 S/P bilateral breast reduction History of bronchoscopy 02/2019 for evaluation of possible TB. Bronchial washings showed benign findings. 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 miller History of colonoscopy Family History Mother Colon cancer Colorectal cancer Uterine cancer Sister Colon cancer Colorectal cancer Father Prostate cancer Stroke Son Family history of reaction to anesthesia fights when wakes Brother Diabetes Brother CLL (chronic lymphocytic leukemia) Denies family history of Ovarian cancer Myocardial infarction Breast cancer Lung cancer Social History Smoking Status: Never smoker Second Hand Exposure: No; Do You Dip or Chew Tobacco: No; Hx Alcohol Use: Yes Alcohol type: wine Alcohol Intake Frequency: Monthly or Less Hx Substance Use: No Preferred Language: Mongolian Communication Ability: Effective Visual Impairment: No Limitations Hearing Ability: Normal Process Lead Required: No Beliefs That Will Affect Care: None marital status: Current Living Situation: Alone Current Living Situation Comment: dtr will check in on pt. current occupational status: retired How many Children do You have: 4 Feels Safe at Home: Yes Childhood Exposure to Second-Hand Smoke: No caffeine: Yes Dental Care, Regularly: Yes Physical Activity Frequency: 5-6 Times per Week Seatbelt Use: always Sunscreen Use: Yes Assistive Devices: Cane and Glasses Allergies Allergies Allergy/AdvReac Type Severity Reaction Status Date / Time mold Allergy Intermediate SOB, Verified 06/13/25 12:12 itchy, watery eyes cat dander Allergy Mild itchy, Verified 06/13/25 12:12 watery eyes chlorthalidone Allergy Mild Dizzy, Verified 06/13/25 12:12 light headed chocolate flavor Allergy Mild Gastrointestinal Verified 06/13/25 12:12 Upset gluten Allergy Mild Gastrointestinal Verified 06/13/25 12:12 Upset dabigatran etexilate AdvReac Intermediate SKIN PEELS Verified 06/13/25 12:12 [From Pradaxa] erythromycin base AdvReac Intermediate NAUSEA / Verified 06/13/25 12:12 VOMITING lactose AdvReac Mild GI SYMPTOMS Verified 06/13/25 12:12 Home Meds Home Medications Medication Instructions Recorded Confirmed Raw [employer] Caps 500 mg PO QPM 07/05/20 06/19/25 cetirizine 10 mg tablet (Zyrtec) 10 mg PO QPM 07/05/20 06/19/25 immune glob,gamma (IgG) 10 25 g IV .4-6WEEKS 07/05/20 06/19/25 %-gly-IgA over 50 mcg/mL injection solution (Gammagard Liquid) prochlorperazine maleate 10 mg 10 mg PO Q6H PRN Nausea 07/05/20 06/19/25 tablet vitamin B complex 1 cap PO QAM 07/05/20 06/19/25 Lactobacillus acidophilus 10 10,000 mmu cells PO QAM 09/12/20 06/19/25 billion cell capsule (Probiotic) ascorbate calcium (vitamin C) 814 400 mg PO QAM 11/30/20 06/19/25 mg/gram oral powder (Vitamin C (ascorbate calcium)) [id number] carb-vit K 1 tab PO QAM 10/08/21 06/19/25 18 mg iron-400 mcg-500 mg tablet (One-A-Day Womens Formula) potassium chloride 10 mEq 10 meq PO 3XWK 03/15/25 06/19/25 tablet,extended release albuterol 90 mcg-budesonide 80 2 inh inhalation 6XD PRN Shortness 05/25/25 06/19/25 mcg/actuation HFA aerosol inhaler Of Breath Or Wheezing (Airsupra) montelukast 10 mg tablet 10 mg PO DAILY 05/26/25 06/19/25 (Singulair) calcium 400 mg 1 tab PO 3XWK 06/02/25 06/19/25 (carbonate)-magnesium 167 mg (oxide)-D3 133 unit tablet (Calcium Magnesium plus D) sodium chloride 7 % for 1 inh inhalation BID PRN 06/06/25 06/19/25 nebulization DIRECTED warfarin 5 mg tablet 5 mg PO QPM 06/06/25 06/19/25 furosemide 20 mg tablet 20 - 40 mg PO DIRECTED 06/19/25 06/19/25 Previous Rx's Medication Instructions Recorded acetaminophen 325 mg tablet 650 mg (2 x 325 mg) PO Q4H PRN 10/11/21 pain #30 tabs ipratropium 0.5 mg-albuterol 3 mg 3 ml inhalation QID PRN Shortness 12/09/23 (2.5 mg base)/3 mL nebulization Of Breath Or Wheezing #180 mL soln denosumab 60 mg/mL subcutaneous 60 mg subcut ONCE #1 mL 04/27/24 syringe (Prolia) flecainide 100 mg tablet 100 mg PO Q12H #180 tabs 12/23/24 sertraline 100 mg tablet 100 mg PO DAILY #90 tabs 02/02/25 metoprolol succinate 50 mg 100 mg (2 x 50 mg) PO QPM #180 tabs 06/06/25 tablet,extended release 24 hr aspirin 81 mg tablet,delayed 81 mg PO QAM #90 tabs 06/11/25 release benzonatate 100 mg capsule 100 - 200 mg (1 - 2 x 100 mg) PO 06/11/25 TID PRN cough #30 caps omeprazole 20 mg capsule,delayed 20 mg PO QAM #30 caps 06/11/25 release lorazepam 0.5 mg tablet 0.5 mg PO Q8H PRN anxiety #30 tabs 06/14/25 zolpidem 5 mg tablet 5 mg PO HS PRN insomnia #15 tabs 06/14/25 budesonide-formoterol HFA 160 1 inh inhalation BID #10.2 grams 06/17/25 mcg-4.5 mcg/actuation aerosol inhaler Results & Data (ED) Vital Signs Vital Signs - 24 hr 06/19/25 09:36 06/19/25 10:56 06/19/25 11:23 Temperature 37.6 C H Temperature Source Oral Pulse Rate 114 H 87 79 Pulse Rate [Apical] Pulse Rate from SpO2 Sensor 83 Pulse Strength [Apical] Respiratory Rate 20 19 Respiratory Effort / Characteristics Respiratory Depth Normal Respiratory Pattern Blood Pressure 139/80 124/77 Blood Pressure [Right Arm] Blood Pressure Mean 99 92 Blood Pressure Mean [Right Arm] Blood Pressure Position Semi-fowlers Pulse Oximetry 94 98 Oxygen Delivery Method Room Air Sepsis Recent Fever Within 48 Hours No Sepsis New/Unexplained Change in Mental Status N/A Sepsis Action Taken by Nursing No Action Required 06/19/25 11:30 06/19/25 12:00 06/19/25 12:00 Temperature Temperature Source Pulse Rate 82 88 Pulse Rate [Apical] Pulse Rate from SpO2 Sensor 84 89 Pulse Strength [Apical] Respiratory Rate 21 20 Respiratory Effort / Characteristics Respiratory Depth Respiratory Pattern Blood Pressure 137/93 128/89 128/89 Blood Pressure [Right Arm] Blood Pressure Mean 107 102 102 Blood Pressure Mean [Right Arm] Blood Pressure Position Pulse Oximetry 90 96 Oxygen Delivery Method Sepsis Recent Fever Within 48 Hours Sepsis New/Unexplained Change in Mental Status Sepsis Action Taken by Nursing 06/19/25 12:08 06/19/25 12:51 06/19/25 13:30 Temperature Temperature Source Pulse Rate 79 84 Pulse Rate [Apical] 90 Pulse Rate from SpO2 Sensor 82 Pulse Strength [Apical] Normal Respiratory Rate 18 27 H 25 H Respiratory Effort / Characteristics Non-Labored Spontaneous Respiratory Depth Normal Respiratory Pattern Regular Blood Pressure 140/94 Blood Pressure [Right Arm] 128/89 Blood Pressure Mean 113 Blood Pressure Mean [Right Arm] 102 Blood Pressure Position Pulse Oximetry 95 95 Oxygen Delivery Method Room Air Sepsis Recent Fever Within 48 Hours Sepsis New/Unexplained Change in Mental Status Sepsis Action Taken by Nursing Laboratory Data 06/19/25 10:37 06/19/25 10:37 Lab Results 06/19/25 06/19/25 06/19/25 Range/Units 10:37 10:51 11:05 WBC 12.55 H (4.8-10.8) K/ul RBC 3.60 L (4.20-5.40) M/uL Hgb 11.1 L (12.0-16.0) g/dl Hct 33.7 L (37.0-47.0) % MCV 93.6 (80.0-100.0) fL MCH 30.8 (25.0-34.0) pg MCHC 32.9 (32.0-36.0) g/dL RDW Std Deviation 47.8 H (36.4-46.3) fL RDW Coeff of Imani 14.1 (11.5-14.5) % Plt Count 185 (130-400) K/uL MPV 9.8 (9.4-12.4) fL Immature Gran % (Auto) 0.6 % Neut % (Auto) 86.6 % Lymph % (Auto) 4.6 % Jenkins % (Auto) 8.0 % Eos % (Auto) 0.0 % Baso % (Auto) 0.2 % Neut # (Auto) 10.87 H (1.40-6.50) K/uL Lymph # (Auto) 0.58 L (1.20-3.40) K/uL Jenkins # (Auto) 1.00 H (0.11-0.59) K/uL Eos # (Auto) 0.00 (0.00-0.50) K/uL Baso # (Auto) 0.02 (0.00-0.20) K/uL Immature Gran # (Auto) 0.08 (0.01-0.20) K/uL PT 25.1 H (9.0-12.0) Seconds INR 2.5 H (0.9-1.1) APTT 55 H (21-31) Seconds PTT Ratio 2.0 Sodium 131 L (136-145) mmol/L Potassium 3.6 (3.5-5.1) mmol/L Chloride 97 L (98-107) mmol/L Carbon Dioxide 26 (21-32) mmol/L Anion Gap 8 (3-11) BUN 13 (6-23) mg/dl Creatinine 0.61 (0.6-1.2) mg/dl Est Cr Clr Drug Dosing Not Reportable eGFR 94.34 BUN/Creatinine Ratio 21.3 H (10-20) Glucose 108 H (70-99(Fasting)) mg/dl Lactate 0.6 (0.4-2.0) mmol/L Calcium 8.6 (8.6-10.3) mg/dl Magnesium 1.8 (1.7-2.4) mg/dl Total Bilirubin 0.9 (0.2-1.0) mg/dl AST 20 (13-39) U/L ALT 30 (7-52) U/L Alkaline Phosphatase 49 (34-104) U/L Troponin I High Sens 22.7 H (0-14) pg/ml B-Natriuretic Peptide 686 H (0-100) pg/ml Total Protein 6.3 (6.0-8.3) gm/dl Albumin 3.6 (3.4-5.0) gm/dl Globulin 2.7 (2.5-4.0) gm/dl Albumin/Globulin Ratio 1.3 (0.9-2) Procalcitonin 0.07 (0-0.5) ng/ml Adenovirus (PCR) Not Detected (NotDetected) Anaplasma Smear See Comment Babesia Smear See Comment B. pertussis DNA (PCR) Not Detected (NotDetected) B.parapertussis DNA PCR Not Detected (NotDetected) Lyme Disease Screen Negative (Negative) C. pneumoniae DNA (PCR) Not Detected (NotDetected) Coronavirus OC43 (PCR) Not Detected (NotDetected) Coronavirus HKU1 (PCR) Not Detected (NotDetected) Coronavirus 229E (PCR) Not Detected (NotDetected) SARS-CoV-2 (PCR) Not Detected (NotDetected) Coronavirus NL63 (PCR) Not Detected (NotDetected) Human Metapneumovir PCR Not Detected (NotDetected) Influenza Type A (PCR) Not Detected (NotDetected) Influenza Type B (PCR) Not Detected (NotDetected) M. pneumoniae (PCR) Not Detected (NotDetected) Parainfluenza 1 (PCR) Not Detected (NotDetected) Parainfluenza 2 (PCR) Not Detected (NotDetected) Parainfluenza 3 (PCR) Not Detected (NotDetected) Parainfluenza 4 (PCR) Not Detected (NotDetected) RSV (PCR) Not Detected (NotDetected) Entero/Rhino (PCR) Not Detected (NotDetected) Group A Strep (PCR) NOT DETECTED (NotDetected) 06/19/25 Range/Units 12:42 WBC (4.8-10.8) K/ul RBC (4.20-5.40) M/uL Hgb (12.0-16.0) g/dl Hct (37.0-47.0) % MCV (80.0-100.0) fL MCH (25.0-34.0) pg MCHC (32.0-36.0) g/dL RDW Std Deviation (36.4-46.3) fL RDW Coeff of Imani (11.5-14.5) % Plt Count (130-400) K/uL MPV (9.4-12.4) fL Immature Gran % (Auto) % Neut % (Auto) % Lymph % (Auto) % Jenkins % (Auto) % Eos % (Auto) % Baso % (Auto) % Neut # (Auto) (1.40-6.50) K/uL Lymph # (Auto) (1.20-3.40) K/uL Jenkins # (Auto) (0.11-0.59) K/uL Eos # (Auto) (0.00-0.50) K/uL Baso # (Auto) (0.00-0.20) K/uL Immature Gran # (Auto) (0.01-0.20) K/uL PT (9.0-12.0) Seconds INR (0.9-1.1) APTT (21-31) Seconds PTT Ratio Sodium (136-145) mmol/L Potassium (3.5-5.1) mmol/L Chloride (98-107) mmol/L Carbon Dioxide (21-32) mmol/L Anion Gap (3-11) BUN (6-23) mg/dl Creatinine (0.6-1.2) mg/dl Est Cr Clr Drug Dosing eGFR BUN/Creatinine Ratio (10-20) Glucose (70-99(Fasting)) mg/dl Lactate (0.4-2.0) mmol/L Calcium (8.6-10.3) mg/dl Magnesium (1.7-2.4) mg/dl Total Bilirubin (0.2-1.0) mg/dl AST (13-39) U/L ALT (7-52) U/L Alkaline Phosphatase (34-104) U/L Troponin I High Sens 20.2 H (0-14) pg/ml B-Natriuretic Peptide (0-100) pg/ml Total Protein (6.0-8.3) gm/dl Albumin (3.4-5.0) gm/dl Globulin (2.5-4.0) gm/dl Albumin/Globulin Ratio (0.9-2) Procalcitonin (0-0.5) ng/ml Adenovirus (PCR) (NotDetected) Anaplasma Smear Babesia Smear B. pertussis DNA (PCR) (NotDetected) B.parapertussis DNA PCR (NotDetected) Lyme Disease Screen (Negative) C. pneumoniae DNA (PCR) (NotDetected) Coronavirus OC43 (PCR) (NotDetected) Coronavirus HKU1 (PCR) (NotDetected) Coronavirus 229E (PCR) (NotDetected) SARS-CoV-2 (PCR) (NotDetected) Coronavirus NL63 (PCR) (NotDetected) Human Metapneumovir PCR (NotDetected) Influenza Type A (PCR) (NotDetected) Influenza Type B (PCR) (NotDetected) M. pneumoniae (PCR) (NotDetected) Parainfluenza 1 (PCR) (NotDetected) Parainfluenza 2 (PCR) (NotDetected) Parainfluenza 3 (PCR) (NotDetected) Parainfluenza 4 (PCR) (NotDetected) RSV (PCR) (NotDetected) Entero/Rhino (PCR) (NotDetected) Group A Strep (PCR) (NotDetected) Administered Medications Acetaminophen (Acetaminophen 325 Mg Tab) 650 mg PO Q4H PRN PRN Reason: Pain or Fever Stop: 07/19/25 15:09 Last Admin: 06/19/25 15:37 Dose: 650 mg Documented By: ARV Albuterol (Albut/Ipratrop 3mg/0.5mg Neb 3 Ml Vial) 3 ml INH QID PRN; Protocol PRN Reason: Shortness Of Breath Or Wheezing Stop: 07/19/25 15:09 Last Admin: 06/19/25 17:42 Dose: 3 ml Documented By: FELA Piperacillin Sod/Tazobactam Sod (Zosyn) 4.5 gm in 100 mls @ 25 mls/hr IV Q8H ARNIE; Protocol Stop: 06/26/25 15:59 Last Infusion: 06/19/25 20:07 Dose: Infused Documented By: Admin: 06/19/25 15:44 Dose: 25 mls/hr Documented By: ARV Discontinued Medications Albuterol (Albut/Ipratrop 3mg/0.5mg Neb 3 Ml Vial) 3 ml NEB NOW STA; Protocol Stop: 06/19/25 10:03 Last Admin: 06/19/25 10:47 Dose: 3 ml Documented By: JAYNA Azithromycin (Azithromycin 250 Mg Tab) 500 mg PO NOW ONE Stop: 06/19/25 12:08 Last Admin: 06/19/25 12:27 Dose: 500 mg Documented By: LILY Sodium Chloride (Nss) 500 mls @ 999 mls/hr IV .Q31M ONE Stop: 06/19/25 10:26 Last Infusion: 06/19/25 12:10 Dose: Infused Documented By: levi Admin: 06/19/25 10:47 Dose: 999 mls/hr Documented By: JAYNA Sodium Chloride (Nss) 500 mls @ 999 mls/hr IV .Q31M ONE Stop: 06/19/25 11:56 Last Infusion: 06/19/25 12:40 Dose: Infused Documented By: levi Admin: 06/19/25 12:08 Dose: 999 mls/hr Documented By: LILY Ceftriaxone Sodium (Rocephin) 2,000 mg in 50 mls @ 100 mls/hr IV NOW STA Stop: 06/19/25 11:55 Last Infusion: 06/19/25 15:00 Dose: Infused Documented By: Admin: 06/19/25 12:09 Dose: 100 mls/hr Documented By: LILY Ioversol (Optiray 320 125ml) 118 ml IV ONCE ONE Stop: 06/19/25 11:42 Last Admin: 06/19/25 11:41 Dose: 118 ml Documented By: JULIO Morphine Sulfate (Morphine Sulfate 2 Mg/Ml Carp) 2 mg IV NOW STA Stop: 06/19/25 12:06 Last Admin: 06/19/25 12:20 Dose: 2 mg Documented By: LILY Ondansetron HCl (Ondansetron Inj 2 Mg/Ml 2 Ml Vial) 4 mg IV NOW STA Stop: 06/19/25 12:06 Last Admin: 06/19/25 12:17 Dose: 4 mg Documented By: LILY Sodium Chloride (Sodium Chlor 7% 4 Ml Neb) 4 ml INH BID ARNIE Stop: 07/19/25 20:59 Last Admin: 06/19/25 17:42 Dose: 4 ml Documented By: EM Imaging Data Radiologist's Impression: Chest CTA 06/19/25 09:56 HISTORY: Shortness of breath and fever. TECHNIQUE: CT angiography of the chest was performed with IV contrast. Coronal and sagittal 3D MIP reconstructions are provided. COMPARISON: Chest CT dated 06/06/2025. FINDINGS: Lungs: Left lower lobe alveolar consolidation consistent with pneumonia. Calcified left lower lobe granuloma is considered benign. Scattered areas of atelectasis and mild pulmonary edema. No pneumothorax or effusion. The central tracheobronchial tree is patent. Heart/Mediastinum: Cardiomegaly. No pericardial effusion. Coronary artery calcifications are present. Small hiatal hernia. No suspicious mediastinal or hilar lymph nodes. Calcified mediastinal and hilar lymph nodes consistent with remote granulomatous infection. Vasculature: No evidence of acute pulmonary embolism within the limitations of contrast timing and respiratory motion artifact. Main pulmonary artery is normal in caliber. No thoracic aortic aneurysm. Mild atherosclerotic vascular disease of the aorta and arch vessels. Soft Tissues: Pacer generator pack within the superior aspect of the ventral left upper chest wall. Soft tissues of the chest wall are otherwise unremarkable. Upper Abdomen: Unremarkable. Bones: No acute osseous abnormality. Degenerative changes of the shoulders and spine. IMPRESSION: * No evidence of acute pulmonary embolism. * Dense consolidation involving the left lower lobe consistent with pneumonia. * Findings of CHF with cardiomegaly and mild pulmonary edema. Scattered atelectasis. * Sequela of remote granulomatous infection. * Additional chronic and/or incidental findings as above. ACT 112: Positive. There are findings on this exam that require communication between the performing entity and the patient following Patient Test Result Information Act ([place] ACT 112) guidelines. Electronically signed by Pito Pritchett 06-19-2025 12:[address] 06/19/25 09:56 HISTORY: Headache. TECHNIQUE: CT of the head without contrast. Images are presented in axial reformats. Study is limited without coronal or sagittal reformats. COMPARISON: Head CT dated 05/25/2022. FINDINGS: No evidence of intracranial hemorrhage, abnormal extra axial fluid collection, mass effect, or midline shift. Mild volume loss and chronic microvascular ischemic changes.Ventricular caliber is appropriate. Fourth ventricle is midline. Basal cisterns are patent.Gaines-white differentiation is maintained. Globes and orbits are unremarkable.Soft tissues about the skull base and scalp are unremarkable. Bilateral maxillary sinus air-fluid levels. The mastoid air cells are clear. No acute calvarial fracture. IMPRESSION: * Evaluation is limited with no coronal or sagittal reformats provided for interpretation. * No acute intracranial findings within the limitations of the study. * Mild volume loss and chronic microvascular ischemic changes. Electronically signed by Pito Pritchett 06-19-2025 12:05 PM Discharge Plan Visit Data Chief Complaint: Fever Stated Complaint: fever, sob, 101 temp ED Provider: Steven Fish ED Midlevel Provider: Salome Trevizo Discharge Problem: LLL pneumonia, Chest tightness, TILLMAN (dyspnea on exertion), Abnormal heart rhythm, Elevated troponin Patient Disposition: Admitted As Inpatient Condition: Fair Discharge Instructions Interventions: ED Discharge Assessment Last Done: 06/19/25 14:37 Discharge Problem: LLL pneumonia Qualifiers: Pneumonia type: due to unspecified organism Qualified Code(s): J18.9 - Pneumonia, unspecified organism
[2025-06-19] MEDS: SODIUM CHLORIDE 0.9% 500 ML IV ONE ×2 (10:47→12:08)
[2025-06-19] MEDS: ALBUT/IPRATROP 3MG/0.5MG NEB 3 ML VIAL NEB STA (10:47)
[2025-06-19 11:03] LABS: Hematocrit (blood only) 33.7 % (37.0-47.0); Hemoglobin 11.1 g/dl (12.0-16.0); Immature Granulocytes # (auto) 0.08 K/uL (0.01-0.20); Immature Granulocytes % (auto) 0.6 %; Mean Corpuscular Hemoglobin 30.8 pg (25.0-34.0); Mean Corpuscular Volume 93.6 fL (80.0-100.0); Platelet Count 185 K/uL (130-400); RDW Standard Deviation 47.8 fL (36.4-46.3); Red Blood Count 3.60 M/uL (4.20-5.40); White Blood Count 12.55 K/ul (4.8-10.8)
[2025-06-19 11:21] LABS: Alanine Aminotransferase 30 U/L (7-52); Albumin Globulin Ratio 1.3 (0.9-2); Albumin Level 3.6 gm/dl (3.4-5.0); Alkaline Phosphatase 49 U/L (34-104); Anion Gap 8 (3-11); Bilirubin,Total 0.9 mg/dl (0.2-1.0); Blood Urea Nitrogen 13 mg/dl (6-23); Calcium 8.6 mg/dl (8.6-10.3); Carbon Dioxide 26 mmol/L (21-32); Chloride 97 mmol/L (98-107); Globulin 2.7 gm/dl (2.5-4.0); Glucose 108 mg/dl (70-99(Fasting)); Magnesium 1.8 mg/dl (1.7-2.4); Potassium 3.6 mmol/L (3.5-5.1); Sodium 131 mmol/L (136-145); Total Protein 6.3 gm/dl (6.0-8.3)
--- NOTE | 2025-06-19 11:25 | Emergency Department Note ---
ED Visit Note I was consulted by the Advanced Practice Provider Zeinab Trevizo PA-C. I performed a substantive portion of the visit including all aspects of medical decision making. .
[2025-06-19 11:27] LABS: Procalcitonin 0.07 ng/ml (0-0.5)
[2025-06-19 11:33] LABS: INR 2.5 (0.9-1.1); Partial Thromboplastin Time 55 Seconds (21-31); Prothrombin Time 25.1 Seconds (9.0-12.0)
[2025-06-19] MEDS: OPTIRAY 320 125ml IV ONE (11:41)
[2025-06-19 11:53] LABS: Lyme Screen Rflx Confirmation Negative (Negative)
[2025-06-19 11:58] LABS: Chlamydia pneumoniae PCR Not Detected (NotDetected); Coronavirus 229E PCR Not Detected (NotDetected); Coronavirus CoV-2 (COVID19)PCR Not Detected (NotDetected); Coronavirus HKU1 PCR Not Detected (NotDetected); Coronavirus NL63 PCR Not Detected (NotDetected); Coronavirus OC43PCR Not Detected (NotDetected); Human Metapneumovirus PCR Not Detected (NotDetected); Parainfluenza Virus 1 PCR Not Detected (NotDetected); Parainfluenza Virus 2 PCR Not Detected (NotDetected); Parainfluenza Virus 3 PCR Not Detected (NotDetected); Parainfluenza Virus 4 PCR Not Detected (NotDetected); Respiratory Syncytial VirusPCR Not Detected (NotDetected); Rhinovirus/Enterovirus PCR Not Detected (NotDetected)
--- NOTE | 2025-06-19 12:06 | CT Scan Report ---
HISTORY: Headache. TECHNIQUE: CT of the head without contrast. Images are presented in axial reformats. Study is limited without coronal or sagittal reformats. COMPARISON: Head CT dated 05/25/2022. FINDINGS: No evidence of intracranial hemorrhage, abnormal extra axial fluid collection, mass effect, or midline shift. Mild volume loss and chronic microvascular ischemic changes.Ventricular caliber is appropriate. Fourth ventricle is midline. Basal cisterns are patent.Gaines-white differentiation is maintained. Globes and orbits are unremarkable.Soft tissues about the skull base and scalp are unremarkable. Bilateral maxillary sinus air-fluid levels. The mastoid air cells are clear. No acute calvarial fracture. IMPRESSION: * Evaluation is limited with no coronal or sagittal reformats provided for interpretation. * No acute intracranial findings within the limitations of the study. * Mild volume loss and chronic microvascular ischemic changes. Electronically signed by Pito Pritchett 06-19-2025 12:05 PM
[2025-06-19] MEDS: cefTRIAXone SODIUM 2,000 MG/50 ML BAG IV STA (12:09)
[2025-06-19] MEDS: ONDANSETRON INJ 2 MG/ML 2 ML VIAL IV STA (12:17)
[2025-06-19] MEDS: MoRPHine SULFATE 2 MG/ML CARP IV STA (12:20)
[2025-06-19] MEDS: AZITHROMYCIN 250 MG TAB PO ONE (12:27)
--- NOTE | 2025-06-19 12:29 | CT Scan Report ---
HISTORY: Shortness of breath and fever. TECHNIQUE: CT angiography of the chest was performed with IV contrast. Coronal and sagittal 3D MIP reconstructions are provided. COMPARISON: Chest CT dated 06/06/2025. FINDINGS: Lungs: Left lower lobe alveolar consolidation consistent with pneumonia. Calcified left lower lobe granuloma is considered benign. Scattered areas of atelectasis and mild pulmonary edema. No pneumothorax or effusion. The central tracheobronchial tree is patent. Heart/Mediastinum: Cardiomegaly. No pericardial effusion. Coronary artery calcifications are present. Small hiatal hernia. No suspicious mediastinal or hilar lymph nodes. Calcified mediastinal and hilar lymph nodes consistent with remote granulomatous infection. Vasculature: No evidence of acute pulmonary embolism within the limitations of contrast timing and respiratory motion artifact. Main pulmonary artery is normal in caliber. No thoracic aortic aneurysm. Mild atherosclerotic vascular disease of the aorta and arch vessels. Soft Tissues: Pacer generator pack within the superior aspect of the ventral left upper chest wall. Soft tissues of the chest wall are otherwise unremarkable. Upper Abdomen: Unremarkable. Bones: No acute osseous abnormality. Degenerative changes of the shoulders and spine. IMPRESSION: * No evidence of acute pulmonary embolism. * Dense consolidation involving the left lower lobe consistent with pneumonia. * Findings of CHF with cardiomegaly and mild pulmonary edema. Scattered atelectasis. * Sequela of remote granulomatous infection. * Additional chronic and/or incidental findings as above. ACT 112: Positive. There are findings on this exam that require communication between the performing entity and the patient following Patient Test Result Information Act ([place] ACT 112) guidelines. Electronically signed by Pito Pritchett 06-19-2025 12:28 PM
[2025-06-19 12:50] LABS: Appearance Urine Clear (Clear); Bacteria Urine Automated None Seen (None Seen); Cast Urine Automated 0-2 /lpf (0-2); Epithelial Cell Urine Auto 0-2 /hpf (0-2); Glucose Urine UA Negative (Negative); WBC Urine Automated 0-5 /hpf (0-5)
--- NOTE | 2025-06-19 13:19 | Electrocardiogram Report ---
Test Reason : Blood Pressure : */* mmHG Vent. Rate : 85 BPM Atrial Rate : 315 BPM P-R Int : * ms QRS Dur : 92 ms QT Int : 356 ms P-R-T Axes : * -29 -47 degrees QTcB Int : 423 ms Atrial flutter with variable A-V block with occasional ventricular-paced complexes Nonspecific T wave abnormality Abnormal ECG When compared with ECG of 10-Jun-2025 06:14, Vent. rate has increased by 18 bpm Confirmed by Sara Benitez (Santiago) on 06/19/2025 1:18:54 PM Referred By: REFERRED SELF Confirmed By: Sara Benitez
--- NOTE | 2025-06-19 14:25 | History & Physical Report ---
Date of Service June 19, 2025 Assessment & Plan (1) Community acquired pneumonia: Plan: Noted LLL consolidation on CTA chest on 06/19/2025; new since CTA chest on 06/06/2025. WBC was 12.6 with left shift; procal 0.07. Was on Augmentin x 10 days earlier this month for sinus infection. Received ceftriaxone/azithromycin in ER. Following [facility] hospital-associated pneumonia pathway, I will broaden to pip-tazo. - Start pip-tazo - Continue azithromycin - MRSA swab - Follow blood and sputum cx - ID consult to help determine course given hypoglobulinemia (2) Chest tightness: Plan: Multiple episodes of what sounds convincingly like angina as patient notes chest tightness, shortness of breath, and occasional palpitations with exertion. On interview today, she does note some ongoing chest tightness; however, troponins and EKG without ischemic pattern. Stress test on 06/10/2025 showed "Possible very small area of distal anterolateral ischemia." - Monitor for changes in chest pain - EKG as needed - Cardiology consulted Presently looks EUVOLEMIC to me. Minimal champion swelling, but none on ankles. No JVD. However, BNP is 686. - Continue furosemide 20 mg daily for now (3) Atrial flutter: Plan: Paroxsymal, though was in it at last admission as well. In ER, she has several runs of wide-complex tachycardia (~100 bpm) that spontaneously resolved. Not caught on EKG. INR was 2.5 on admission. - Continue warfarin - Monitor INR - Continue metoprolol, flecainide - Telemetry - Cardiology consult as above (4) Immunodeficiency syndrome: Plan: This is an aspect of her CLL per patient. Follows [facility] with IgG infusions every 4-6 weeks. Last infusion was 8 weeks ago. - Plan to get infusion on 06/24/2025 if out of the hospital - Will get IgG, IgM, and IgA with AM labs (5) CLL (chronic lymphocytic leukemia): Plan: See above (6) SIADH (syndrome of inappropriate ADH production): Plan: On chart. Na was 131 on admission. - Monitor Na - Fluid restrict to 1500 ml/day (7) Asthma: Plan: No wheezing on exam today. I do not see indication of exacerbation at this time. - Continue budesonide-formoterol, montelukast, cetirizine - Continue DuoNebs PRN - Continue hypertonic saline nebs BID as patient reports this helps reduce cough (8) Anxiety: Plan: No acute needs. - Continue sertraline - Continue lorazepam PRN History of Present Illness Chief Complaint: Chest pain, shortness of breath Primary Care Provider: Holli Wheeler DO Patient is a 74yo F w/ hx of CLL, microscopic colitis, sick sinus syndrome, paroxysmal atrial fib/flutter, HTN, asthma who presents with worsening chest pressure, cough, fatigue, fever, and altered mental status. Patient was admitted from 06/06/2025 until 06/11/2025 and treated for dyspnea on exertion / chest tightness. She underwent stress test that was equivocal and also given Lasix and diuresed. She was discharged and did pretty well for a few days, but developed further fatigue on . She started to sleep several hours at a time. Daughter (in the room) reports increased confusion as well with texts that didn't make sense. On Friday/Friday, the patient reports increased fevers, dry "hacky" cough, and mild hemoptysis. Fever was measured at 100.5 last night and 101 this morning precipitating her coming back to the ER. Her mild hemoptysis was pinkish sputum while coughing. She notes continue TILLMAN where she will get chest tightness, shortness of breath, and sometimes palpitations with exertion. She previously could walk up her flight of steps without stopping; now she stops residential to rest. She notes some LE edema that is close to its baseline for her. She also notes that she has been taking Lasix 40 mg daily for the last 4 days, but feels kind of "dry" with endorsement of orthostatic hypotension. Finally, she notes that she has CLL managed by a [facility] oncologist. She gets IgG infusions every 4 weeks, but had been doing well and it was spaced to every 6 weeks; however, she missed her last dose as she was in the hospital. It has been nearly 2 months now, and she is to get her next infusion this Friday. Allergies Allergy/AdvReac Type Severity Reaction Status Date / Time mold Allergy Intermediate SOB, Verified 06/13/25 12:12 itchy, watery eyes cat dander Allergy Mild itchy, Verified 06/13/25 12:12 watery eyes chlorthalidone Allergy Mild Dizzy, Verified 06/13/25 12:12 light headed chocolate flavor Allergy Mild Gastrointestinal Verified 06/13/25 12:12 Upset gluten Allergy Mild Gastrointestinal Verified 06/13/25 12:12 Upset dabigatran etexilate AdvReac Intermediate SKIN PEELS Verified 06/13/25 12:12 [From Pradaxa] erythromycin base AdvReac Intermediate NAUSEA / Verified 06/13/25 12:12 VOMITING lactose AdvReac Mild GI SYMPTOMS Verified 06/13/25 12:12 Home Medications Medication Instructions Recorded Confirmed Type Raw [employer] Caps 500 mg PO QPM 07/05/20 06/19/25 History cetirizine 10 mg tablet (Zyrtec) 10 mg PO QPM 07/05/20 06/19/25 History immune glob,gamma (IgG) 10 25 g IV .4-6WEEKS 07/05/20 06/19/25 History %-gly-IgA over 50 mcg/mL injection solution (Gammagard Liquid) prochlorperazine maleate 10 mg 10 mg PO Q6H PRN Nausea 07/05/20 06/19/25 History tablet vitamin B complex 1 cap PO QAM 07/05/20 06/19/25 History Lactobacillus acidophilus 10 10,000 mmu cells PO QAM 09/12/20 06/19/25 History billion cell capsule (Probiotic) ascorbate calcium (vitamin C) 814 400 mg PO QAM 11/30/20 06/19/25 History mg/gram oral powder (Vitamin C (ascorbate calcium)) hfttvsnh-dry-zond-FA-Ca carb-vit K 1 tab PO QAM 10/08/21 06/19/25 History 18 mg iron-400 mcg-500 mg tablet (One-A-Day Womens Formula) acetaminophen 325 mg tablet 650 mg (2 x 325 mg) PO Q4H PRN 10/11/21 06/19/25 Rx pain #30 tabs ipratropium 0.5 mg-albuterol 3 mg 3 ml inhalation QID PRN Shortness 12/09/23 06/19/25 Rx (2.5 mg base)/3 mL nebulization Of Breath Or Wheezing #180 mL soln denosumab 60 mg/mL subcutaneous 60 mg subcut ONCE #1 mL 04/27/24 06/19/25 Rx syringe (Prolia) flecainide 100 mg tablet 100 mg PO Q12H #180 tabs 12/23/24 06/19/25 Rx sertraline 100 mg tablet 100 mg PO DAILY #90 tabs 02/02/25 06/19/25 Rx potassium chloride 10 mEq 10 meq PO 3XWK 03/15/25 06/19/25 History tablet,extended release albuterol 90 mcg-budesonide 80 2 inh inhalation 6XD PRN Shortness 05/25/25 06/19/25 History mcg/actuation HFA aerosol inhaler Of Breath Or Wheezing (Airsupra) montelukast 10 mg tablet 10 mg PO DAILY 05/26/25 06/19/25 History (Singulair) calcium 400 mg 1 tab PO 3XWK 06/02/25 06/19/25 History (carbonate)-magnesium 167 mg (oxide)-D3 133 unit tablet (Calcium Magnesium plus D) metoprolol succinate 50 mg 100 mg (2 x 50 mg) PO QPM #180 tabs 06/06/25 06/19/25 Rx tablet,extended release 24 hr sodium chloride 7 % for 1 inh inhalation BID PRN 06/06/25 06/19/25 History nebulization DIRECTED warfarin 5 mg tablet 5 mg PO QPM 06/06/25 06/19/25 History aspirin 81 mg tablet,delayed 81 mg PO QAM #90 tabs 06/11/25 06/19/25 Rx release benzonatate 100 mg capsule 100 - 200 mg (1 - 2 x 100 mg) PO 06/11/25 06/19/25 Rx TID PRN cough #30 caps omeprazole 20 mg capsule,delayed 20 mg PO QAM #30 caps 06/11/25 06/19/25 Rx release lorazepam 0.5 mg tablet 0.5 mg PO Q8H PRN anxiety #30 tabs 06/14/25 06/19/25 Rx zolpidem 5 mg tablet 5 mg PO HS PRN insomnia #15 tabs 06/14/25 06/19/25 Rx budesonide-formoterol HFA 160 1 inh inhalation BID #10.2 grams 06/17/25 06/19/25 Rx mcg-4.5 mcg/actuation aerosol inhaler furosemide 20 mg tablet 20 - 40 mg PO DIRECTED 06/19/25 06/19/25 History Past Med/Surg History Problem List (Updated 06/19/25 @ 14:22 by Richy Haile MD) Community acquired pneumonia Atrial flutter fib/flutter Dyspnea on exertion (Acute) Chest tightness (Acute) Collagenous colitis Immunodeficiency syndrome Situational stress Allergic rhinitis with postnasal drip Asthma Osteoarthritis, knee Idiopathic polyneuropathy TILLMAN (dyspnea on exertion) Mitral regurgitation ARMIDA (stress urinary incontinence, female) Hypogammaglobulinemia FPC current use of anticoagulant therapy (Chronic) Paroxysmal atrial fibrillation (Chronic) Hypertension (Chronic) CLL (chronic lymphocytic leukemia) (Chronic) Chronic lymphocytosis. Cardiac murmur Mild TR and MR noted on 2017 echo. Peptic ulcer disease H/O Tachycardia-bradycardia syndrome (Acute) hx of--reason for pacemaker placement SIADH (syndrome of inappropriate ADH production) VALORIE (mycobacterium avium-intracellulare) hx 2019 Osteoporosis Medical History Pacemaker medtronic dual chamber History of rib fracture (05/25/22) radial, clavicle and rib fractures from fall History of hip fracture (~10/08/21) Pelvis fracture (01/10/23) superior and inferior pubic ramus fracture on the left side>no current issues Abnormal gait Immunodeficiency syndrome Hyponatremia hx-historically run low for years Mycobacterium avium complex Osteoarthritis On anticoagulant therapy xarelto daily Anemia hx of---was receiving IV Iron infusions Migraine H/O Asthma hx of, inh and neb prn Surgical History History of cataract surgery History of permanent cardiac pacemaker placement (~07/07/20) meditronic dual chamber pacemaker placed @ [facility]--follows with Dr. Miller>next check will be 03/02/24 S/P bilateral breast reduction History of bronchoscopy 02/2019 for evaluation of possible TB. Bronchial washings showed benign findings. 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 miller History of colonoscopy Family History Mother Colon cancer Colorectal cancer Uterine cancer Sister Colon cancer Colorectal cancer Father Prostate cancer Stroke Son Family history of reaction to anesthesia fights when wakes Brother Diabetes Brother CLL (chronic lymphocytic leukemia) Denies family history of Ovarian cancer Myocardial infarction Breast cancer Lung cancer Social History Smoking Status: Never smoker Second Hand Exposure: No; Do You Dip or Chew Tobacco: No; Hx Alcohol Use: Yes Alcohol type: wine Alcohol Intake Frequency: Monthly or Less Hx Substance Use: No Preferred Language: Amharic Communication Ability: Effective Visual Impairment: No Limitations Hearing Ability: Normal Doctor Of Optometry Required: No Beliefs That Will Affect Care: None marital status: Current Living Situation: Alone Current Living Situation Comment: dtr will check in on pt. current occupational status: retired How many Children do You have: 4 Feels Safe at Home: Yes Childhood Exposure to Second-Hand Smoke: No caffeine: Yes Dental Care, Regularly: Yes Physical Activity Frequency: 5-6 Times per Week Seatbelt Use: always Sunscreen Use: Yes Assistive Devices: Cane, Nebulizer and Walker Review of Systems Review of Systems: All systems reviewed & are unremarkable except as noted in HPI & below Gastrointestinal: + nausea; no vomiting Physical Exam Physical Exam: GEN: NAD HEENT: NC/AT Neck: No JVD CV: Irregularly irregular rhythm, normal rate. Trace champion edema, but none on ankles Resp: Crackles throughout, but no wheezing noted GI: Soft, non-tender, normal bowel sounds Neuro: Grossly normal motor function Skin: No rashes noted Psych: Normal affect, AAO x 3 Results & Data Results & Data Vital Signs (Past 12 Hours) Vital Signs Temp Pulse Pulse Resp BP BP Pulse Ox 06/19/25 12:08 90 18 128/89 95 06/19/25 12:00 88 20 128/89 96 06/19/25 11:30 82 21 137/93 90 06/19/25 11:23 79 06/19/25 10:56 87 19 124/77 98 06/19/25 09:36 37.6 C H 114 H 20 139/80 94 O2 Del Method 06/19/25 12:08 Room Air 06/19/25 12:00 06/19/25 11:30 06/19/25 11:23 06/19/25 10:56 06/19/25 09:36 Room Air Code Status & VTE Plan Code Status Full code VTE Prophylaxis Plan VTE Prophylaxis will be ordered: Yes PG Care Time/CCT Total # of Minutes Spent Total Time Spent with Patient: Total time spent is greater than 50% in coordination of care (as documented) at patient's floor/unit and/or counseling patient: Coding Level of Care Code 28138 INT INP/OBS CARE 3/75MIN Diagnoses Community acquired pneumonia of left lower lobe of lung J18.9 Laterality: left Lung location: lower lobe of lung Chest tightness R07.89 Typical atrial flutter I48.3 Atrial flutter type: typical Immunodeficiency syndrome D84.9 CLL (chronic lymphocytic leukemia) C91.90 SIADH (syndrome of inappropriate ADH production) E22.2 Mild intermittent asthma without complication J45.20 Asthma severity: mild Asthma persistence: intermittent Asthma complication type: uncomplicated Anxiety F41.9 (1) Community acquired pneumonia Laterality: left Lung location: lower lobe of lung Qualified Code(s): J18.9 - Pneumonia, unspecified organism (3) Atrial flutter Atrial flutter type: typical Qualified Code(s): I48.3 - Typical atrial flutter (7) Asthma Asthma severity: mild Asthma persistence: intermittent Asthma complication type: uncomplicated Qualified Code(s): J45.20 - Mild intermittent asthma, uncomplicated
[2025-06-19] MEDS: ACETAMINOPHEN 325 MG TAB PO PRN (15:37)
[2025-06-19] MEDS: PIPERACILLIN/TAZOBACTAM 4.5 GM/100 ML BAG IV SCH (15:44)
[2025-06-19] MEDS ORDERED: WARFARIN SOD 5 MG TAB PO SCH (16:00)
[2025-06-19] MEDS: SODIUM CHLOR 7% 4 ML NEB INH SCH (17:42)
[2025-06-19] MEDS: ALBUT/IPRATROP 3MG/0.5MG NEB 3 ML VIAL INH PRN (17:42)
[2025-06-19] MEDS: BENZONATATE 100 MG CAPSULE PO PRN (20:39)
[2025-06-19] MEDS: CETIRIZINE HCL 10 MG TABLET PO SCH (20:40)
[2025-06-19] MEDS: FLECAINIDE ACETATE 100 MG TABLET PO SCH (20:40)
[2025-06-19] MEDS: METOPROLOL SUCC 50MG EXT REL TAB PO SCH (21:28)
[2025-06-20] MEDS: PROCHLORPERAZINE 5 MG in SYRINGE 4 ML IV ONE (05:19)
[2025-06-20 06:08] LABS: Hematocrit (blood only) 32.3 % (37.0-47.0); Hemoglobin 10.8 g/dl (12.0-16.0); Mean Corpuscular Hemoglobin 31.6 pg (25.0-34.0); Mean Corpuscular Volume 94.4 fL (80.0-100.0); Platelet Count 188 K/uL (130-400); RDW Standard Deviation 50.1 fL (36.4-46.3); Red Blood Count 3.42 M/uL (4.20-5.40); White Blood Count 11.52 K/ul (4.8-10.8)
[2025-06-20 06:47] LABS: INR 2.5 (0.9-1.1); Prothrombin Time 25.4 Seconds (9.0-12.0)
[2025-06-20 06:54] LABS: Alanine Aminotransferase 26 U/L (7-52); Albumin Globulin Ratio 1.4 (0.9-2); Albumin Level 3.6 gm/dl (3.4-5.0); Alkaline Phosphatase 57 U/L (34-104); Anion Gap 6 (3-11); Bilirubin,Total 0.7 mg/dl (0.2-1.0); Blood Urea Nitrogen 16 mg/dl (6-23); Calcium 8.2 mg/dl (8.6-10.3); Carbon Dioxide 27 mmol/L (21-32); Chloride 99 mmol/L (98-107); Creatinine Clr Calc Pharmacy 68.2 ml/min; Globulin 2.6 gm/dl (2.5-4.0); Glucose 97 mg/dl (70-99(Fasting)); Potassium 3.9 mmol/L (3.5-5.1); Sodium 132 mmol/L (136-145); Total Protein 6.2 gm/dl (6.0-8.3)
[2025-06-20] MEDS: SODIUM CHLOR 7% 4 ML NEB INH SCH (07:26)
[2025-06-20] MEDS: FUROSEMIDE 20 MG TAB PO SCH (08:01)
[2025-06-20] MEDS: MONTELUKAST SODIUM 10 MG TABLET PO SCH (08:01)
[2025-06-20] MEDS: SERTRALINE HCL 100 MG TABLET PO SCH (08:01)
[2025-06-20] MEDS: FLUTICASONE/VILANTEROL 200/25MCG 14 PUFFS/INHALER INH SCH (08:02)
[2025-06-20] MEDS: ASPIRIN 81 MG ECTAB PO SCH (08:04)
--- NOTE | 2025-06-20 08:20 | Electrocardiogram Report ---
Test Reason : Blood Pressure : */* mmHG Vent. Rate : 88 BPM Atrial Rate : * BPM P-R Int : * ms QRS Dur : 90 ms QT Int : 362 ms P-R-T Axes : * -44 -65 degrees QTcB Int : 438 ms Atrial fibrillation with occasional ventricular-paced complexes Left axis deviation Abnormal ECG When compared with ECG of 19-Jun-2025 10:25, Vent. rate has increased by 3 bpm Confirmed by Sara Benitez (Santiago) on 06/20/2025 8:20:36 AM Referred By: REFERRED SELF Confirmed By: Sara Benitez
--- NOTE | 2025-06-20 08:22 | Electrocardiogram Report ---
Test Reason : Blood Pressure : */* mmHG Vent. Rate : 85 BPM Atrial Rate : * BPM P-R Int : * ms QRS Dur : 92 ms QT Int : 388 ms P-R-T Axes : * -35 -71 degrees QTcB Int : 461 ms Atrial fibrillation -flutter Left axis deviation Left anterior fascicular block Abnormal ECG When compared with ECG [id number] 11:56,(unconfirmed) V pacing no longer seen Confirmed by Sara Benitez ([id number]) on 06/20/2025 8:22:29 AM Referred By: REFERRED SELF Confirmed By: Sara Benitez
[2025-06-20] MEDS ORDERED: POLYETHYLENE (MIRALAX) 17 GM PACK PO PRN (08:50)
[2025-06-20] MEDS ORDERED: FUROSEMIDE 20 MG TAB PO SCH (09:00)
[2025-06-20 09:43] LABS: Immunoglobulin A 45.2 mg/dl (70-400); Immunoglobulin G 468.0 mg/dl (635-1741); Immunoglobulin M < 20.0 mg/dl (45-281)
--- NOTE | 2025-06-20 10:23 | Hospitalist Progress Note ---
Date of Service June 20, 2025 Assessment & Plan (1) Community acquired pneumonia: (2) Chest tightness: (3) Atrial flutter: (4) Immunodeficiency syndrome: (5) CLL (chronic lymphocytic leukemia): (6) SIADH (syndrome of inappropriate ADH production): (7) Asthma: (8) Anxiety: (9) Hospital-acquired pneumonia: Plan #Hospital acquired pneumonia Noted LLL consolidation on CTA chest on 06/19/2025; new since CTA chest on 06/06/2025. WBC was 12.6 with left shift; procal 0.07. Was on Augmentin x 10 days earlier this month for sinus infection. Received ceftriaxone/azithromycin in ER. Following [facility] hospital-associated pneumonia pathway, I will broaden to pip-tazo. - Continue Zosyn + azithromycin - MRSA swab negative - Follow blood and sputum cx - Appreciate ID consult #Asthma exacerbation Significant wheezing on exam this morning Start Solu-Medrol 125mg IV followed by 40mg IV daily Duonebs QID Continue maintenance inhaler #Chest tightness Appreciate cardiology review, possible cardiac cath once pneumonia resolved #Anxiety No acute needs. - Continue sertraline - Continue lorazepam PRN #Immunodeficiency / CLL This is an aspect of her CLL per patient. Follows [facility] oncology with IgG infusions every 4-6 weeks. Last infusion was 8 weeks ago. - Plan to get infusion on 06/24/2025 if out of the hospital - IgG, IgM, and IgA low #Atrial Fibrillation/Flutter Paroxysmal, though was in it at last admission as well. In ER, she has several runs of wide-complex tachycardia (~100 bpm) that spontaneously resolved. Not caught on EKG. INR was 2.5 on admission. Judahenlty rate controlled a. fib - Continue warfarin - Monitor INR - Continue metoprolol, flecainide - Telemetry - Cardiology consult as above VTE Prophylaxis - warfarin, INR therapeutic Disposition - continue on PCU Admission and Anticipated Discharge Date Admission Date: June 19, 2025 Subjective Lives alone. Still very fatigued. Lungs tight. Concerned about going home as not currently able to do ADLs. Physical Exam Respiratory: normal respiratory effort; no respiratory distress Auscultation: + wheezes (expiratory wheeze posteriorly) Cardiovascular: RRR, no murmur, no edema Gastrointestinal (Abdomen): normal bowel sounds, soft, nontender, no hepatosplenomegaly Results & Data Results & Data Vital Signs (Past 12 Hours) Vital Signs Temp Pulse Pulse Resp BP BP Pulse Ox 06/20/25 07:55 36.8 C 90 18 127/76 93 06/20/25 07:26 83 18 97 06/20/25 04:18 79 18 94 06/20/25 03:56 37.3 C 82 18 151/71 H 93 06/20/25 02:24 84 06/20/25 00:25 36.7 C 81 16 124/78 93 O2 Del Method 06/20/25 07:55 Room Air 06/20/25 07:26 Room Air 06/20/25 04:18 Room Air 06/20/25 03:56 Room Air 06/20/25 02:24 06/20/25 00:25 Room Air PG Care Time/CCT Total # of Minutes Spent Total Time Spent with Patient: Total time spent is greater than 50% in coordination of care (as documented) at patient's floor/unit and/or counseling patient: Coding Level of Care Code 94080 SUB INP/OBS CARE 2/35MIN Diagnoses Community acquired pneumonia of left lower lobe of lung J18.9 Laterality: left Lung location: lower lobe of lung Chest tightness R07.89 Typical atrial flutter I48.3 Atrial flutter type: typical Immunodeficiency syndrome D84.9 CLL (chronic lymphocytic leukemia) C91.90 SIADH (syndrome of inappropriate ADH production) E22.2 Mild intermittent asthma without complication J45.20 Asthma complication type: uncomplicated Asthma persistence: intermittent Asthma severity: mild Anxiety F41.9 Hospital-acquired pneumonia J18.9; Y95 (1) Community acquired pneumonia Laterality: left Lung location: lower lobe of lung Qualified Code(s): J18.9 - Pneumonia, unspecified organism (3) Atrial flutter Atrial flutter type: typical Qualified Code(s): I48.3 - Typical atrial flutter (7) Asthma Asthma complication type: uncomplicated Asthma persistence: intermittent Asthma severity: mild Qualified Code(s): J45.20 - Mild intermittent asthma, uncomplicated
--- NOTE | 2025-06-20 10:39 | Electrocardiogram Report ---
Test Reason : Blood Pressure : */* mmHG Vent. Rate : 91 BPM Atrial Rate : 308 BPM P-R Int : * ms QRS Dur : 90 ms QT Int : 350 ms P-R-T Axes : * -34 -51 degrees QTcB Int : 430 ms Atrial fibrillation Left axis deviation Nonspecific T wave abnormality Abnormal ECG When compared with ECG of 19-Jun-2025 12:48, (unconfirmed) No significant change Confirmed by Peyman Perez ([id number]) on 06/20/2025 10:39:04 AM Referred By: REFERRED SELF Confirmed By: Peyman Perez
[2025-06-20] MEDS: AZITHROMYCIN 250 MG TAB PO SCH (11:37)
--- NOTE | 2025-06-20 12:35 | Cardiology Consultation ---
Date of Consultation June 20, 2025 Assessment & Plan (1) Chest pain syndrome: -She does give a history of reproducible, predictable, exertional chest discomfort (and accompanying dyspnea). -Lexiscan stress test suggests the possibility of distal anterolateral ischemia. -Could consider a cardiac catheterization once her pneumonia resolves. (2) Hypertension: -Adequate control on current regimen. (3) Paroxysmal atrial fibrillation: -Continue rhythm control and long-term anticoagulation. (4) Tachycardia-bradycardia syndrome: -s/p DDD pacemaker, June 2020. -Normal interrogation, 03/19/2025. History of Present Illness Attending Physician: Tye Argueta MD History of Present Illness Mrs. Rodriguez is a 74-year-old female admitted yesterday with a community acquired pneumonia. This consultation was ordered because of a chest pain syndrome. Of note, patient typically follows with Dr. Miller in the outpatient setting. The patient was in her usual state of health until approximately 2 days prior to presentation. She was noticing significant fatigue, hypersomnolence, and her daughter noted some confusion. She then developed fever up to 101 degrees along with a cough and some hemoptysis. Therefore, she was brought to emergency room for further care. Evaluation here included CT scan of the chest which showed a dense infiltrate in the left lower lobe. The patient was hospitalized here from June 06 through June 11 with ex ertional dyspnea. She did have a nuclear stress test performed during that hospitalization which was read as having a possible small area of distal anterolateral wall ischemia. Left ventricular ejection fraction was normal at 53% without wall motion abnormalities. The patient does describe exertional dyspnea when climbing a flight of stairs. She also has concurrent chest tightness when she reaches the top of the stairs. Her symptoms resolve after approximately 20 to 30 minutes. She has not experienced any chest discomfort at rest. She further denies syncope, presyncope, PND, orthopnea, lower extremity edema, and claudication. She does carry history of paroxysmal atrial fibrillation and has been diagnosed with tachycardia/bradycardia syndrome. She had a dual-chamber pacemaker placed in June 2020. She is maintained on rhythm control and long-term anticoagulation for her paroxysmal atrial fibrillation. Currently, patient is resting comfortably in bed without complaints. Past medical and surgical history 1. Hypertension 2. Hypercholesterolemia 3. Paroxysmal atrial fibrillation 4. Tachycardia/bradycardia syndrome 5. DDD pacemakerOct2019 6. Asthma 7. CLL 8. Hypogammaglobulinemia 9. SIADH 10. Migraine headaches 11. Anxiety 12. DJD 13. History of VALORIE 14. Vaginal hysterectomy 15. Tonsillectomy 16. Appendectomy 17. Carpal tunnel release 18. Bilateral breast reduction surgery 19. 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 Allergies Allergy/AdvReac Type Severity Reaction Status Date / Time mold Allergy Intermediate SOB, Verified 06/13/25 12:12 itchy, watery eyes cat dander Allergy Mild itchy, Verified 06/13/25 12:12 watery eyes chlorthalidone Allergy Mild Dizzy, Verified 06/13/25 12:12 light headed chocolate flavor Allergy Mild Gastrointestinal Verified 06/13/25 12:12 Upset gluten Allergy Mild Gastrointestinal Verified 06/13/25 12:12 Upset dabigatran etexilate AdvReac Intermediate SKIN PEELS Verified 06/13/25 12:12 [From Pradaxa] erythromycin base AdvReac Intermediate NAUSEA / Verified 06/13/25 12:12 VOMITING lactose AdvReac Mild GI SYMPTOMS Verified 06/13/25 12:12 Home Medications Medication Instructions Recorded Confirmed Type Raw Green [employer] Caps 500 mg PO QPM 07/05/20 06/19/25 History cetirizine 10 mg tablet (Zyrtec) 10 mg PO QPM 07/05/20 06/19/25 History immune glob,gamma (IgG) 10 25 g IV .4-6WEEKS 07/05/20 06/19/25 History %-gly-IgA over 50 mcg/mL injection solution (Gammagard Liquid) prochlorperazine maleate 10 mg 10 mg PO Q6H PRN Nausea 07/05/20 06/19/25 History tablet vitamin B complex 1 cap PO QAM 07/05/20 06/19/25 History Lactobacillus acidophilus 10 10,000 mmu cells PO QAM 09/12/20 06/19/25 History billion cell capsule (Probiotic) ascorbate calcium (vitamin C) 814 400 mg PO QAM 11/30/20 06/19/25 History mg/gram oral powder (Vitamin C (ascorbate calcium)) [id number] carb-vit K 1 tab PO QAM 10/08/21 06/19/25 History 18 mg iron-400 mcg-500 mg tablet (One-A-Day Womens Formula) acetaminophen 325 mg tablet 650 mg (2 x 325 mg) PO Q4H PRN 10/11/21 06/19/25 Rx pain #30 tabs ipratropium 0.5 mg-albuterol 3 mg 3 ml inhalation QID PRN Shortness 12/09/23 06/19/25 Rx (2.5 mg base)/3 mL nebulization Of Breath Or Wheezing #180 mL soln denosumab 60 mg/mL subcutaneous 60 mg subcut ONCE #1 mL 04/27/24 06/19/25 Rx syringe (Prolia) flecainide 100 mg tablet 100 mg PO Q12H #180 tabs 12/23/24 06/19/25 Rx sertraline 100 mg tablet 100 mg PO DAILY #90 tabs 02/02/25 06/19/25 Rx potassium chloride 10 mEq 10 meq PO 3XWK 03/15/25 06/19/25 History tablet,extended release albuterol 90 mcg-budesonide 80 2 inh inhalation 6XD PRN Shortness 05/25/25 06/19/25 History mcg/actuation HFA aerosol inhaler Of Breath Or Wheezing (Airsupra) montelukast 10 mg tablet 10 mg PO DAILY 05/26/25 06/19/25 History (Singulair) calcium 400 mg 1 tab PO 3XWK 06/02/25 06/19/25 History (carbonate)-magnesium 167 mg (oxide)-D3 133 unit tablet (Calcium Magnesium plus D) metoprolol succinate 50 mg 100 mg (2 x 50 mg) PO QPM #180 tabs 06/06/25 06/19/25 Rx tablet,extended release 24 hr sodium chloride 7 % for 1 inh inhalation BID PRN 06/06/25 06/19/25 History nebulization DIRECTED warfarin 5 mg tablet 5 mg PO QPM 06/06/25 06/19/25 History aspirin 81 mg tablet,delayed 81 mg PO QAM #90 tabs 06/11/25 06/19/25 Rx release benzonatate 100 mg capsule 100 - 200 mg (1 - 2 x 100 mg) PO 06/11/25 06/19/25 Rx TID PRN cough #30 caps omeprazole 20 mg capsule,delayed 20 mg PO QAM #30 caps 06/11/25 06/19/25 Rx release lorazepam 0.5 mg tablet 0.5 mg PO Q8H PRN anxiety #30 tabs 06/14/25 06/19/25 Rx zolpidem 5 mg tablet 5 mg PO HS PRN insomnia #15 tabs 06/14/25 06/19/25 Rx budesonide-formoterol HFA 160 1 inh inhalation BID #10.2 grams 06/17/25 06/19/25 Rx mcg-4.5 mcg/actuation aerosol inhaler furosemide 20 mg tablet 20 - 40 mg PO DIRECTED 06/19/25 06/19/25 History Patient History Medical History Pacemaker medtronic dual chamber History of rib fracture (05/25/22) radial, clavicle and rib fractures from fall History of hip fracture (~10/08/21) Pelvis fracture (01/10/23) superior and inferior pubic ramus fracture on the left side>no current issues Abnormal gait Immunodeficiency syndrome Hyponatremia hx-historically run low for years Mycobacterium avium complex Osteoarthritis On anticoagulant therapy xarelto daily Anemia hx of---was receiving IV Iron infusions Migraine H/O Asthma hx of, inh and neb prn Surgical History History of cataract surgery History of permanent cardiac pacemaker placement (~07/07/20) meditronic dual chamber pacemaker placed @ [facility]--follows with Dr. Miller>next check will be 03/02/24 S/P bilateral breast reduction History of bronchoscopy 02/2019 for evaluation of possible TB. Bronchial washings showed benign findings. 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 miller History of colonoscopy Family History Mother Colon cancer Colorectal cancer Uterine cancer Sister Colon cancer Colorectal cancer Father Prostate cancer Stroke Son Family history of reaction to anesthesia fights when wakes Brother Diabetes Brother CLL (chronic lymphocytic leukemia) Denies family history of Ovarian cancer Myocardial infarction Breast cancer Lung cancer Social History Smoking Status: Never smoker Second Hand Exposure: No; Do You Dip or Chew Tobacco: No; Hx Alcohol Use: Yes Alcohol type: wine Alcohol Intake Frequency: Monthly or Less Hx Substance Use: No Preferred Language: Maltese Communication Ability: Effective Visual Impairment: No Limitations Hearing Ability: Normal [employer]rain [employer] 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 current occupational status: retired How many Children do You have: 4 Feels Safe at Home: Yes Childhood Exposure to Second-Hand Smoke: No caffeine: Yes Dental Care, Regularly: Yes Physical Activity Frequency: 5-6 Times per Week Seatbelt Use: always Sunscreen Use: Yes Assistive Devices: Cane and Glasses Physical Exam Physical Exam: In general this is a well-developed well-nourished white female in no acute distress. HEENT exam is negative. Neck reveals normal carotid upstrokes without bruits. Jugular venous pressure is flat at 90. There is no thyromegaly. Cardiovascular exam reveals a regular rhythm with distant heart sounds. No obvious murmurs. Lungs note decreased breath sounds at the left base. Abdomen is soft without bruits. Extremities reveal intact radial artery and posterior tibial pulses bilaterally. There is no peripheral edema. Results & Data Vital Signs (Past 12 Hours) Vital Signs Temp Pulse Pulse Resp BP BP Pulse Ox 06/20/25 11:22 36.5 C 80 18 114/70 94 06/20/25 08:00 83 06/20/25 08:00 06/20/25 07:55 36.8 C 90 18 127/76 93 06/20/25 07:26 83 18 97 06/20/25 04:18 79 18 94 06/20/25 03:56 37.3 C 82 18 151/71 H 93 06/20/25 02:24 84 O2 Del Method 06/20/25 11:22 Room Air 06/20/25 08:00 06/20/25 08:00 Room Air 06/20/25 07:55 Room Air 06/20/25 07:26 Room Air 06/20/25 04:18 Room Air 06/20/25 03:56 Room Air 06/20/25 02:24 Laboratory Results CBC notes hemoglobin of 10.8, hematocrit 32.3, white count 11.5, platelet count 188,000. Electrolytes noted sodium 132, potassium 3.9, chloride 99, bicarb 27, BUN 16, creatinine 0.67, and a glucose of 97. Initial high-sensitivity troponin was 23 with a follow-up value of 20 and 19. BNP is elevated at 686. Diagnostic Findings Echocardiogram performed on June 07 noted normal left ventricular systolic function with ejection fraction of 50 to 55%. There is moderate mitral and mild tricuspid regurgitation. Compared with the study performed in March 2024, no significant change. Lexiscan stress test performed on June 10 is described above. EKG notes atrial fibrillation with a controlled ventricular response. There is left axis deviation and nonspecific T wave abnormality. PG Care Time/CCT Total # of Minutes Spent Total Time Spent with Patient: Total time spent is greater than 50% in coordination of care (as documented) at patient's floor/unit and/or counseling patient: Coding Level of Care Code 56960 INT INP/OBS CARE 375MIN Diagnoses Chest pain syndrome R07.9 Essential hypertension I10 Hypertension type: essential hypertension Paroxysmal atrial fibrillation I48.0 Tachycardia-bradycardia syndrome I49.5 (2) Hypertension Hypertension type: essential hypertension Qualified Code(s): I10 - Essential (primary) hypertension
[2025-06-20] MEDS: ALBUT/IPRATROP 3MG/0.5MG NEB 3 ML VIAL NEB SCH (13:06)
--- NOTE | 2025-06-20 15:25 | Infectious Disease Consult ---
Date of Consultation June 20, 2025 Assessment & Plan (1) LLL pneumonia: (2) Hypogammaglobulinemia: Plan Problems: #LLL pneumonia #Hypogammaglobulinemia #Hx of pulmonary MAC: s/p ~12 months of treatment from [id number] Micro: 06/19 BCx x2: NGTD Abx: Zosyn 06/19 - present Azithro 06/19 - present Ceftriaxone 06/19 74 yo F with CLL, microscopic colitis, sick sinus syndrome with pacemaker, paroxysmal afib/flutter, HTN, asthma, pulmonary MAC (dx 02/2019, treated with azithro, rif, ethambutol but stopped after 3 months due to drug intolerance; restarted 09/2019 but developed paroxysmal afib with c/f DDI between warfarin and rifampin. Rif replaced by Arikayce 12/2019. Continued through 08/2020, stopped due to severe leukopenia. Continued with surveillance without obvious recurrence) who presented on 06/19 with worsening chest pressure, cough, fatigue, fever, AMS, found to have LLL pneumonia. Pt was recently admitted 06/06 - 06/11 with dyspnea on exertion, chest tightness. CTA chest 06/06 was without PE, pneumonia, pulmonary edema. She was COVID-19, flu, RSV negative. Was given nebs, steroids, but symptoms did not fully resolve. Nuclear stress test showed possible area of anterolateral ischemia, was advised to follow-up with cardiology. On presentation 06/19, pt reported fever x 3 days, worsening shortness of breath. Has been taking Lasix 40 mg to help with fluid retention from her recent steroid course. On presentation, T 37.6, HR 114, 94% on room air. Labs showed WBC 12.55, BNP 686, procalcitonin 0.07. MRSA nares negative. RVP negative. Rapid Strep negative. Lyme screen negative. Anaplasma/Babesia smear negative, PCR pending. CTA chest showed no PE, dense LLL consolidation consistent with pneumonia, findings of CHF with cardiomegaly and mild pulm edema, sequela of remote granulomatous infection. Received ceftriaxone and azithro in the ED, then ceftriaxone changed to Zosyn. Pt was given a 10 day course of amox/clav on 05/26 at PCP visit for URI/sinus symptoms. Recommendations: - Continue Zosyn and azithromycin and monitor for improvement - Send sputum culture if able - Ordered urine Legionella Ag Will continue to follow Consultation Information This patient recommendation is based on a telemedicine consult request which was completed asynchronously through chart review and information provided by the primary physician. The patient was not seen or examined today. The evaluation is consultative in nature and all patient care and treatment decisions can either be accepted or rejected by the patient's primary hospital-based treating physician using their own independent medical judgment for their patient. Java Engineer contact information: Please call [facility] . (Phone Number For Physician Use Only) Time Spent Reviewing Chart: 31+ minutes History of Present Illness Reason for Consultation: recurrent pneumonia, hypogammaglobulinemia Attending Physician: Tye Argueta MD History of Present Illness 74 yo F with CLL, microscopic colitis, sick sinus syndrome with pacemaker, paroxysmal afib/flutter, HTN, asthma who presented on 06/19 with worsening chest pressure, cough, fatigue, fever, AMS. Pt was recently admitted 06/06 - 06/11 with dyspnea on exertion, chest tightness. CTA chest 06/06 was without PE, pneumonia, pulmonary edema. She was COVID-19, flu, RSV negative. Was given nebs, steroids, but symptoms did not fully resolve. Nuclear stress test showed possible area of anterolateral ischemia, was advised to follow-up with cardiology. On presentation 06/19, pt reported fever x 3 days, worsening shortness of breath. Has been taking Lasix 40 mg to help with fluid retention from her recent steroid course. On presentation, T 37.6, HR 114, 94% on room air. Labs showed WBC 12.55, BNP 686, procalcitonin 0.07. MRSA nares negative. RVP negative. Rapid Strep negative. Lyme screen negative. Anaplasma/Babesia smear negative, PCR pending. CTA chest showed no PE, dense LLL consolidation consistent with pneumonia, findings of CHF with cardiomegaly and mild pulm edema, sequela of remote granulomatous infection. Received ceftriaxone and azithro in the ED, then ceftriaxone changed to Zosyn. Pt was given a 10 day course of amox/clav on 05/26 at PCP visit for URI/sinus symptoms. Allergies Allergy/AdvReac Type Severity Reaction Status Date / Time mold Allergy Intermediate SOB, Verified 06/13/25 12:12 itchy, watery eyes cat dander Allergy Mild itchy, Verified 06/13/25 12:12 watery eyes chlorthalidone Allergy Mild Dizzy, Verified 06/13/25 12:12 light headed chocolate flavor Allergy Mild Gastrointestinal Verified 06/13/25 12:12 Upset gluten Allergy Mild Gastrointestinal Verified 06/13/25 12:12 Upset dabigatran etexilate AdvReac Intermediate SKIN PEELS Verified 06/13/25 12:12 [From Pradaxa] erythromycin base AdvReac Intermediate NAUSEA / Verified 06/13/25 12:12 VOMITING lactose AdvReac Mild GI SYMPTOMS Verified 06/13/25 12:12 Home Medications Medication Instructions Recorded Confirmed Type Raw [employer] Caps 500 mg PO QPM 07/05/20 06/19/25 History cetirizine 10 mg tablet (Zyrtec) 10 mg PO QPM 07/05/20 06/19/25 History immune glob,gamma (IgG) 10 25 g IV .4-6WEEKS 07/05/20 06/19/25 History %-gly-IgA over 50 mcg/mL injection solution (Gammagard Liquid) prochlorperazine maleate 10 mg 10 mg PO Q6H PRN Nausea 07/05/20 06/19/25 History tablet vitamin B complex 1 cap PO QAM 07/05/20 06/19/25 History Lactobacillus acidophilus 10 10,000 mmu cells PO QAM 09/12/20 06/19/25 History billion cell capsule (Probiotic) ascorbate calcium (vitamin C) 814 400 mg PO QAM 11/30/20 06/19/25 History mg/gram oral powder (Vitamin C (ascorbate calcium)) [id number] carb-vit K 1 tab PO QAM 10/08/21 06/19/25 History 18 mg iron-400 mcg-500 mg tablet (One-A-Day Womens Formula) acetaminophen 325 mg tablet 650 mg (2 x 325 mg) PO Q4H PRN 10/11/21 06/19/25 Rx pain #30 tabs ipratropium 0.5 mg-albuterol 3 mg 3 ml inhalation QID PRN Shortness 12/09/23 06/19/25 Rx (2.5 mg base)/3 mL nebulization Of Breath Or Wheezing #180 mL soln denosumab 60 mg/mL subcutaneous 60 mg subcut ONCE #1 mL 04/27/24 06/19/25 Rx syringe (Prolia) flecainide 100 mg tablet 100 mg PO Q12H #180 tabs 12/23/24 06/19/25 Rx sertraline 100 mg tablet 100 mg PO DAILY #90 tabs 02/02/25 06/19/25 Rx potassium chloride 10 mEq 10 meq PO 3XWK 03/15/25 06/19/25 History tablet,extended release albuterol 90 mcg-budesonide 80 2 inh inhalation 6XD PRN Shortness 05/25/25 06/19/25 History mcg/actuation HFA aerosol inhaler Of Breath Or Wheezing (Airsupra) montelukast 10 mg tablet 10 mg PO DAILY 05/26/25 06/19/25 History (Singulair) calcium 400 mg 1 tab PO 3XWK 06/02/25 06/19/25 History (carbonate)-magnesium 167 mg (oxide)-D3 133 unit tablet (Calcium Magnesium plus D) metoprolol succinate 50 mg 100 mg (2 x 50 mg) PO QPM #180 tabs 06/06/25 06/19/25 Rx tablet,extended release 24 hr sodium chloride 7 % for 1 inh inhalation BID PRN 06/06/25 06/19/25 History nebulization DIRECTED warfarin 5 mg tablet 5 mg PO QPM 06/06/25 06/19/25 History aspirin 81 mg tablet,delayed 81 mg PO QAM #90 tabs 06/11/25 06/19/25 Rx release benzonatate 100 mg capsule 100 - 200 mg (1 - 2 x 100 mg) PO 06/11/25 06/19/25 Rx TID PRN cough #30 caps omeprazole 20 mg capsule,delayed 20 mg PO QAM #30 caps 06/11/25 06/19/25 Rx release lorazepam 0.5 mg tablet 0.5 mg PO Q8H PRN anxiety #30 tabs 06/14/25 06/19/25 Rx zolpidem 5 mg tablet 5 mg PO HS PRN insomnia #15 tabs 06/14/25 06/19/25 Rx budesonide-formoterol HFA 160 1 inh inhalation BID #10.2 grams 06/17/25 06/19/25 Rx mcg-4.5 mcg/actuation aerosol inhaler furosemide 20 mg tablet 20 - 40 mg PO DIRECTED 06/19/25 06/19/25 History Patient History Medical History Pacemaker medtronic dual chamber History of rib fracture (05/25/22) radial, clavicle and rib fractures from fall History of hip fracture (~10/08/21) Pelvis fracture (01/10/23) superior and inferior pubic ramus fracture on the left side>no current issues Abnormal gait Immunodeficiency syndrome Hyponatremia hx-historically run low for years Mycobacterium avium complex Osteoarthritis On anticoagulant therapy xarelto daily Anemia hx of---was receiving IV Iron infusions Migraine H/O Asthma hx of, inh and neb prn Surgical History History of cataract surgery History of permanent cardiac pacemaker placement (~07/07/20) meditronic dual chamber pacemaker placed @ [facility]--follows with Dr. Miller>next check will be 03/02/24 S/P bilateral breast reduction History of bronchoscopy 02/2019 for evaluation of possible TB. Bronchial washings showed benign findings. 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 miller History of colonoscopy Family History Mother Colon cancer Colorectal cancer Uterine cancer Sister Colon cancer Colorectal cancer Father Prostate cancer Stroke Son Family history of reaction to anesthesia fights when wakes Brother Diabetes Brother CLL (chronic lymphocytic leukemia) Denies family history of Ovarian cancer Myocardial infarction Breast cancer Lung cancer Social History Smoking Status: Never smoker Second Hand Exposure: No; Do You Dip or Chew Tobacco: No; Hx Alcohol Use: Yes Alcohol type: wine Alcohol Intake Frequency: Monthly or Less Hx Substance Use: No Preferred Language: Belgian Communication Ability: Effective Visual Impairment: No Limitations Hearing Ability: Normal Rating Officer Required: No Beliefs That Will Affect Care: None marital status: Current Living Situation: Alone Current Living Situation Comment: dtr will check in on pt. current occupational status: retired How many Children do You have: 4 Feels Safe at Home: Yes Childhood Exposure to Second-Hand Smoke: No caffeine: Yes Dental Care, Regularly: Yes Physical Activity Frequency: 5-6 Times per Week Seatbelt Use: always Sunscreen Use: Yes Assistive Devices: Cane and Walker Results & Data Vital Signs (Past 12 Hours) Vital Signs Temp Pulse Pulse Pulse Resp BP BP 06/20/25 14:23 91 H 06/20/25 13:07 88 18 06/20/25 11:22 36.5 C 80 18 114/70 06/20/25 08:00 83 06/20/25 08:00 06/20/25 07:55 36.8 C 90 18 127/76 06/20/25 07:26 83 18 06/20/25 04:18 79 18 06/20/25 03:56 37.3 C 82 18 151/71 H Pulse Ox O2 Del Method 06/20/25 14:23 06/20/25 13:07 95 Room Air 06/20/25 11:22 94 Room Air 06/20/25 08:00 06/20/25 08:00 Room Air 06/20/25 07:55 93 Room Air 06/20/25 07:26 97 Room Air 06/20/25 04:18 94 Room Air 06/20/25 03:56 93 Room Air Laboratory Results Short CBC 06/20/25 Range/Units 05:12 WBC 11.52 H (4.8-10.8) K/ul Hgb 10.8 L (12.0-16.0) g/dl Hct 32.3 L (37.0-47.0) % Plt Count 188 (130-400) K/uL BMP 06/20/25 05:12 Sodium 132 L Potassium 3.9 Chloride 99 Carbon Dioxide 27 BUN 16 Creatinine 0.67 Glucose 97 Calcium 8.2 L Liver Function 06/20/25 Range/Units 05:12 Total Bilirubin 0.7 (0.2-1.0) mg/dl AST 19 (13-39) U/L ALT 26 (7-52) U/L Alkaline Phosphatase 57 (34-104) U/L Albumin 3.6 (3.4-5.0) gm/dl Diagnostic Findings Chest CTA 06/19/25 09:56 HISTORY: Shortness of breath and fever. TECHNIQUE: CT angiography of the chest was performed with IV contrast. Coronal and sagittal 3D MIP reconstructions are provided. COMPARISON: Chest CT dated 06/06/2025. FINDINGS: Lungs: Left lower lobe alveolar consolidation consistent with pneumonia. Calcified left lower lobe granuloma is considered benign. Scattered areas of atelectasis and mild pulmonary edema. No pneumothorax or effusion. The central tracheobronchial tree is patent. Heart/Mediastinum: Cardiomegaly. No pericardial effusion. Coronary artery calcifications are present. Small hiatal hernia. No suspicious mediastinal or hilar lymph nodes. Calcified mediastinal and hilar lymph nodes consistent with remote granulomatous infection. Vasculature: No evidence of acute pulmonary embolism within the limitations of contrast timing and respiratory motion artifact. Main pulmonary artery is normal in caliber. No thoracic aortic aneurysm. Mild atherosclerotic vascular disease of the aorta and arch vessels. Soft Tissues: Pacer generator pack within the superior aspect of the ventral left upper chest wall. Soft tissues of the chest wall are otherwise unremarkable. Upper Abdomen: Unremarkable. Bones: No acute osseous abnormality. Degenerative changes of the shoulders and spine. IMPRESSION: * No evidence of acute pulmonary embolism. * Dense consolidation involving the left lower lobe consistent with pneumonia. * Findings of CHF with cardiomegaly and mild pulmonary edema. Scattered atelectasis. * Sequela of remote granulomatous infection. * Additional chronic and/or incidental findings as above. ACT 112: Positive. There are findings on this exam that require communication between the performing entity and the patient following Patient Test Result Information Act ([place] ACT 112) guidelines. Electronically signed by Pito Pritchett 06-19-2025 12:[address] 06/19/25 09:56 HISTORY: Headache. TECHNIQUE: CT of the head without contrast. Images are presented in axial reformats. Study is limited without coronal or sagittal reformats. COMPARISON: Head CT dated 05/25/2022. FINDINGS: No evidence of intracranial hemorrhage, abnormal extra axial fluid collection, mass effect, or midline shift. Mild volume loss and chronic microvascular ischemic changes.Ventricular caliber is appropriate. Fourth ventricle is midline. Basal cisterns are patent.Gaines-white differentiation is maintained. Globes and orbits are unremarkable.Soft tissues about the skull base and scalp are unremarkable. Bilateral maxillary sinus air-fluid levels. The mastoid air cells are clear. No acute calvarial fracture. IMPRESSION: * Evaluation is limited with no coronal or sagittal reformats provided for interpretation. * No acute intracranial findings within the limitations of the study. * Mild volume loss and chronic microvascular ischemic changes. Electronically signed by Pito Pritchett 06-19-2025 12:05 PM Medications Administered Current Inpatient Medications Acetaminophen (Acetaminophen 325 Mg Tab) 650 mg PO Q4H PRN PRN Reason: Pain or Fever Stop: 07/19/25 15:09 Last Admin: 06/20/25 06:34 Dose: 650 mg Albuterol (Albut/Ipratrop 3mg/0.5mg Neb 3 Ml Vial) 3 ml INH QID PRN; Protocol PRN Reason: Shortness Of Breath Or Wheezing Stop: 07/19/25 15:09 Last Admin: 06/20/25 07:26 Dose: 3 ml Albuterol (Albut/Ipratrop 3mg/0.5mg Neb 3 Ml Vial) 3 ml NEB Q6R ARNIE; Protocol Stop: 07/20/25 12:59 Last Admin: 06/20/25 13:06 Dose: 3 ml Aspirin (Aspirin 81 Mg Ectab) 81 mg PO QAM ARNIE Stop: 07/20/25 08:59 Last Admin: 06/20/25 08:04 Dose: 81 mg Azithromycin (Azithromycin 250 Mg Tab) 500 mg PO QAM [facility] Stop: 06/25/25 10:59 Last Admin: 06/20/25 11:37 Dose: 500 mg Benzonatate (Benzonatate 100 Mg Capsule) 100 - 200 mg PO TID PRN PRN Reason: cough Stop: 07/19/25 15:09 Last Admin: 06/20/25 14:17 Dose: 200 mg Cetirizine HCl (Cetirizine Hcl 10 Mg Tablet) 10 mg PO QPM ARNIE Stop: 07/19/25 20:59 Last Admin: 06/19/25 20:40 Dose: 10 mg Flecainide Acetate (Flecainide Acetate 100 Mg Tablet) 100 mg PO BID [facility] Stop: 07/19/25 20:59 Last Admin: 06/20/25 08:03 Dose: 100 mg Fluticasone/Vilanterol (Fluticasone/Vilanterol 200/25mcg 14 Puffs/Inhaler) 1 puffs INH DAILY ARNIE; Protocol Stop: 07/20/25 08:59 Last Admin: 06/20/25 08:02 Dose: 1 puffs Furosemide (Furosemide 20 Mg Tab) 20 mg PO QAM ARNIE Stop: 07/20/25 08:59 Last Admin: 06/20/25 08:01 Dose: 20 mg Piperacillin Sod/Tazobactam Sod (Zosyn) 4.5 gm in 100 mls @ 25 mls/hr IV Q8H ARNIE; Protocol Stop: 06/26/25 15:59 Last Admin: 06/20/25 15:44 Dose: 25 mls/hr Methylprednisolone 40 mg/ (Syringe) 0.64 mls @ 1.5 mls/min IV QAM ARNIE Stop: 07/21/25 08:59 Lorazepam (Lorazepam 0.5 Mg Tab) 0.5 mg PO Q8H PRN PRN Reason: anxiety Stop: 07/19/25 15:09 Metoprolol Succinate (Metoprolol Succ 50mg Ext Rel Tab) 100 mg PO QPM ARNIE Stop: 07/19/25 20:59 Last Admin: 06/19/25 21:28 Dose: 100 mg Montelukast Sodium (Montelukast Sodium 10 Mg Tablet) 10 mg PO DAILY ARNIE Stop: 07/20/25 08:59 Last Admin: 06/20/25 08:01 Dose: 10 mg Pantoprazole Sodium (Pantoprazole 40 Mg Tab) 40 mg PO QAM ARNIE Stop: 07/20/25 08:59 Last Admin: 06/20/25 08:01 Dose: 40 mg Polyethylene Glycol (Polyethylene (Miralax) 17 Gm Pack) 17 gm PO DAILY PRN PRN Reason: Constipation Stop: 07/20/25 08:49 Sertraline HCl (Sertraline Hcl 100 Mg Tablet) 100 mg PO DAILY ARNIE Stop: 07/20/25 08:59 Last Admin: 06/20/25 08:01 Dose: 100 mg Sodium Chloride (Sodium Chlor 7% 4 Ml Neb) 4 ml INH BIDR RANIE Stop: 07/20/25 06:59 Last Admin: 06/20/25 07:26 Dose: 4 ml Warfarin Sodium (Warfarin Sod 5 Mg Tab) 5 mg PO DAILY@1600 ARNIE Stop: 07/20/25 15:59 Last Admin: 06/20/25 15:44 Dose: 5 mg Zolpidem Tartrate (Zolpidem Tartrate 5 Mg Tab) 5 mg PO HS PRN PRN Reason: insomnia Stop: 07/19/25 15:09 (1) LLL pneumonia Pneumonia type: due to unspecified organism Qualified Code(s): J18.9 - Pneumonia, unspecified organism
[2025-06-20] MEDS: WARFARIN SOD 5 MG TAB PO SCH (15:44)
[2025-06-20] MEDS: ZOLPIDEM TARTRATE 5 MG TAB PO PRN (22:12)
[2025-06-21 06:25] LABS: Hematocrit (blood only) 31.1 % (37.0-47.0); Hemoglobin 10.1 g/dl (12.0-16.0); Mean Corpuscular Hemoglobin 30.4 pg (25.0-34.0); Mean Corpuscular Volume 93.7 fL (80.0-100.0); Platelet Count 208 K/uL (130-400); RDW Standard Deviation 46.8 fL (36.4-46.3); Red Blood Count 3.32 M/uL (4.20-5.40); White Blood Count 10.47 K/ul (4.8-10.8)
[2025-06-21 06:51] LABS: Alanine Aminotransferase 25.0 U/L (7-52); Albumin Globulin Ratio 1.4 (0.9-2); Albumin Level 3.6 gm/dl (3.4-5.0); Alkaline Phosphatase 56.0 U/L (34-104); Anion Gap 8.0 (3-11); Bilirubin,Total 0.4 mg/dl (0.2-1.0); Blood Urea Nitrogen 14.0 mg/dl (6-23); Calcium 8.2 mg/dl (8.6-10.3); Carbon Dioxide 25.0 mmol/L (21-32); Chloride 99.0 mmol/L (98-107); Creatinine Clr Calc Pharmacy 79.6 ml/min; Globulin 2.5 gm/dl (2.5-4.0); Glucose 136.0 mg/dl (70-99(Fasting)); Potassium 3.5 mmol/L (3.5-5.1); Sodium 132.0 mmol/L (136-145); Total Protein 6.1 gm/dl (6.0-8.3)
[2025-06-21 07:33] LABS: INR 3.3 (0.9-1.1); Prothrombin Time 32.2 Seconds (9.0-12.0)
[2025-06-21] MEDS: WARFARIN SOD 2 MG TAB PO SCH (17:11)
--- NOTE | 2025-06-21 20:21 | Hospitalist Progress Note ---
Date of Service June 21, 2025 Assessment & Plan (1) Community acquired pneumonia: (2) Chest tightness: (3) Atrial flutter: (4) Immunodeficiency syndrome: (5) CLL (chronic lymphocytic leukemia): (6) SIADH (syndrome of inappropriate ADH production): (7) Asthma: (8) Anxiety: (9) Hospital-acquired pneumonia: Plan #Hospital acquired pneumonia Noted LLL consolidation on CTA chest on 06/19/2025; new since CTA chest on 06/06/2025. WBC was 12.6 with left shift; procal 0.07. Was on Augmentin x 10 days earlier this month for sinus infection. Received ceftriaxone/azithromycin in ER. Following [facility] hospital-associated pneumonia pathway, I will broaden to pip-tazo. - Continue Zosyn + azithromycin - MRSA swab negative - Follow blood and sputum cx - Appreciate ID consult #Asthma exacerbation Improved wheezing on exam after started steroids Solu-Medrol 125mg IV 06/20 followed by 40mg IV daily Duonebs QID Continue maintenance inhaler #Chest tightness Lack of improvement with positive myocardial stress last admission. Cardiology considering cardiac cath after pneumonia resolved. #Anxiety No acute needs. - Continue sertraline - Continue lorazepam PRN #Immunodeficiency / CLL This is an aspect of her CLL per patient. Follows [facility] oncology with IgG infusions every 4-6 weeks. Last infusion was 8 weeks ago. - Plan to get infusion on 06/24/2025 if out of the hospital IgG, IgM, and IgA low #Atrial Fibrillation/Flutter Paroxysmal, though was in it at last admission as well. In ER, she has several runs of wide-complex tachycardia (~100 bpm) that spontaneously resolved. Not caught on EKG. INR was 2.5 on admission. Currently rate controlled a. fib - Continue warfarin (usually on 5mg PO daily but will reduce to 2mf daily for now INR elevated due to azithromycin use) - Monitor INR - Continue metoprolol, flecainide - Telemetry VTE Prophylaxis - warfarin, INR therapeutic Disposition - continue on PCU as may have cardiac component to her shortness of breath, patient requesting rehabilitation on discharge Admission and Anticipated Discharge Date Admission Date: June 19, 2025 Subjective Improving shortness of breath but not significantly and with steps in house she does not feel confident doing these while living alone. Physical Exam Respiratory: normal respiratory effort, lungs clear to auscultation normal respiratory effort; no respiratory distress Auscultation: + wheezes (expiratory wheeze posteriorly) Cardiovascular: RRR, no murmur, no edema Gastrointestinal (Abdomen): normal bowel sounds, soft, nontender, no hepatosplenomegaly Results & Data Results & Data Vital Signs (Past 12 Hours) Vital Signs Temp Pulse Pulse Resp BP BP Pulse Ox 06/21/25 19:51 36.4 C L 84 18 181/96 H 95 06/21/25 19:50 79 18 96 06/21/25 15:59 36.6 C 96 H 18 138/88 93 06/21/25 14:58 99 H 06/21/25 14:57 82 06/21/25 13:53 80 22 95 06/21/25 11:45 06/21/25 11:02 36.5 C 77 18 139/85 95 O2 Del Method 06/21/25 19:51 Room Air 06/21/25 19:50 Room Air 06/21/25 15:59 Room Air 06/21/25 14:58 06/21/25 14:57 06/21/25 13:53 Room Air 06/21/25 11:45 Room Air 06/21/25 11:02 Room Air PG Care Time/CCT Total # of Minutes Spent Total Time Spent with Patient: Total time spent is greater than 50% in coordination of care (as documented) at patient's floor/unit and/or counseling patient: Coding Level of Care Code 48556 SUB INP/OBS CARE 2/35MIN Diagnoses Community acquired pneumonia of left lower lobe of lung J18.9 Laterality: left Lung location: lower lobe of lung Chest tightness R07.89 Typical atrial flutter I48.3 Atrial flutter type: typical Immunodeficiency syndrome D84.9 CLL (chronic lymphocytic leukemia) C91.90 SIADH (syndrome of inappropriate ADH production) E22.2 Mild intermittent asthma without complication J45.20 Asthma complication type: uncomplicated Asthma persistence: intermittent Asthma severity: mild Anxiety F41.9 Hospital-acquired pneumonia J18.9; Y95 (1) Community acquired pneumonia Laterality: left Lung location: lower lobe of lung Qualified Code(s): J18.9 - Pneumonia, unspecified organism (3) Atrial flutter Atrial flutter type: typical Qualified Code(s): I48.3 - Typical atrial flutter (7) Asthma Asthma complication type: uncomplicated Asthma persistence: intermittent Asthma severity: mild Qualified Code(s): J45.20 - Mild intermittent asthma, uncomplicated
[2025-06-21] MEDS: LORazepam 0.5 MG TAB PO PRN (21:46)
[2025-06-22 06:17] LABS: Hematocrit (blood only) 31.4 % (37.0-47.0); Hemoglobin 10.3 g/dl (12.0-16.0); Mean Corpuscular Hemoglobin 30.5 pg (25.0-34.0); Mean Corpuscular Volume 92.9 fL (80.0-100.0); Platelet Count 236 K/uL (130-400); RDW Standard Deviation 46.9 fL (36.4-46.3); Red Blood Count 3.38 M/uL (4.20-5.40); White Blood Count 9.65 K/ul (4.8-10.8)
[2025-06-22 06:39] LABS: Alanine Aminotransferase 27.0 U/L (7-52); Albumin Globulin Ratio 1.4 (0.9-2); Albumin Level 3.5 gm/dl (3.4-5.0); Alkaline Phosphatase 49.0 U/L (34-104); Anion Gap 8.0 (3-11); Bilirubin,Total 0.4 mg/dl (0.2-1.0); Blood Urea Nitrogen 14.0 mg/dl (6-23); Calcium 8.1 mg/dl (8.6-10.3); Carbon Dioxide 26.0 mmol/L (21-32); Chloride 99.0 mmol/L (98-107); Creatinine Clr Calc Pharmacy 67.8 ml/min; Globulin 2.5 gm/dl (2.5-4.0); Glucose 107.0 mg/dl (70-99(Fasting)); Potassium 3.4 mmol/L (3.5-5.1); Sodium 133.0 mmol/L (136-145); Total Protein 6.0 gm/dl (6.0-8.3)
[2025-06-22 06:48] LABS: INR 4.2 (0.9-1.1); Prothrombin Time 40.4 Seconds (9.0-12.0)
[2025-06-22] MEDS: ONDANSETRON INJ 2 MG/ML 2 ML VIAL IV PRN (09:32)
[2025-06-22] MEDS: POTASSIUM CHLORIDE CRTAB 20 MEQ TABCR PO SCH (10:01)
[2025-06-22 10:34] LABS: Magnesium 2.2 mg/dl (1.7-2.4)
--- NOTE | 2025-06-22 11:06 | Hospitalist Progress Note ---
Date of Service June 22, 2025 Assessment & Plan (1) LLL pneumonia: (2) Hospital-acquired pneumonia: (3) Asthma: (4) Immunodeficiency syndrome: (5) Atrial flutter: (6) CLL (chronic lymphocytic leukemia): (7) SIADH (syndrome of inappropriate ADH production): (8) Anxiety: Plan #Hospital acquired pneumonia - LLL - -clinically improved -stable in RA; has never required NC o2 -day #4/5 of azithromycin -day #4 of IV zosyn -appreciate ID recs -legionella urine ag negative -respiratory biofire negative -appreciate ID consultation -sputum cx thus far negative -cxr obtained today to r/o any clinical worsening or parapneumonic effusion - negative for both -transition to PO Levaquin in otis of zosyn soon? #Asthma exacerbation - -improved -received Solu-Medrol 125mg IV 06/20 -since then on solumedrol 40mg IV daily -will wean to 30mg IV daily starting 06/23 -cont Duonebs QID -cont usual maintenance inhalers -cont saline nebs BID #positive Lexiscan stress test - -had such during last admission 2 weeks ago -[facility] Cardiology considering cardiac cath after pneumonia resolved #Immunodeficiency / CLL - -follows with [facility] oncology Dr Dylon Lilly -receives IVIG (Gammagard) infusions every 4-6 weeks. Last infusion was 8 weeks ago. -IgG, IgM, IgA all low -patient agreeable to IVIG today -- will give 25gm x 1; tylenol/benadryl pre- treatment #Atrial Fibrillation/Flutter - -In ER she had several runs of wide-complex tachycardia (~100 bpm) that spontaneously resolved - a.fib/flutter with aberancy? -last admit and this admit with persistent a.fib/flutter -INR today >4 --> HOLD warfarin -daily INR while here -cont metoprolol, flecainide #acute metabolic encephalopathy - -2nd to LLL pneumonia -altered MS resolved -she seems back to baseline to me today cont PT/OT patient wants acute rehab post-d/c Admission and Anticipated Discharge Date Admission Date: June 19, 2025 Subjective patient reports she is starting to feel a little better less cough minimal sputum (just had enough yesterday for a sputum cx) no dyspnea at rest but continues with dyspnea on exertion no chest pain no orthopnea appetite good tele wnl overnight we discussed having her get IVIG while here; she typically is on Gammagard - we don't have that formulation - but she is ok with using what we have stocked at [facility] ([place]) Review of Systems Review of Systems: gen - no fevers or chills psych - recent confusion - now improved/resolved GI - no abd pain or N/V; no diarrhea pulm - her spit yesterday was "red" but nothing since CV - no chest pain Physical Exam Physical Exam: gen - NAD, resting comfortably in bed neck - no JVD mouth - MMM, no thrush heart - RRR, s1 s2, no murmur lungs - dense rales L base about 1/3-1/[address] up back, mild rales RLL; no wheezes; normal airation; no increased work of breathing abd - soft NT ND BS+ ext - no edema, pulses 2+ b/l feet psych - a/o x 3 Results & Data Results & Data Vital Signs (Past 12 Hours) Vital Signs Temp Pulse Pulse Resp BP BP Pulse Ox 06/22/25 10:39 36.6 C 69 18 136/79 96 06/22/25 08:00 83 06/22/25 07:37 84 16 98 06/22/25 04:57 79 18 95 06/22/25 04:45 36.6 C 80 18 168/103 H 96 06/22/25 04:00 Pulse Ox O2 Del Method O2 Del Method 06/22/25 10:39 Room Air 06/22/25 08:00 06/22/25 07:37 Room Air 06/22/25 04:57 Room Air 06/22/25 04:45 Room Air 06/22/25 04:00 95 Room Air Laboratory Results Laboratory Results - last 24 hr 06/19/25 06/20/25 06/22/25 10:37 22:09 06:05 WBC RBC Hgb Hct MCV MCH MCHC RDW Std Deviation RDW Coeff of Imani Plt Count MPV PT 40.4 H INR 4.2 H Sodium 133 L Potassium 3.4 L Chloride 99 Carbon Dioxide 26 Anion Gap 8 BUN 14 Creatinine 0.67 Est Cr Clr Drug Dosing 67.8 eGFR 92.23 BUN/Creatinine Ratio 20.9 H Glucose 107 H POC Glucose Calcium 8.1 L Magnesium 2.2 Total Bilirubin 0.4 AST 22 ALT 27 Alkaline Phosphatase 49 Total Protein 6.0 Albumin 3.5 Globulin 2.5 Albumin/Globulin Ratio 1.4 A. phagocytophilum DNA Negative Urine Legionella Ag SEE NOTE 06/22/25 06/22/25 06/22/25 08:05 12:05 17:03 WBC RBC Hgb Hct MCV MCH MCHC RDW Std Deviation RDW Coeff of Imani Plt Count MPV PT INR Sodium Potassium Chloride Carbon Dioxide Anion Gap BUN Creatinine Est Cr Clr Drug Dosing eGFR BUN/Creatinine Ratio Glucose POC Glucose 99 100 H 176 H Calcium Magnesium Total Bilirubin AST ALT Alkaline Phosphatase Total Protein Albumin Globulin Albumin/Globulin Ratio A. phagocytophilum DNA Urine Legionella Ag Diagnostic Findings Chest X-Ray 06/22/25 11:31 XR chest 2V PA/lateral CLINICAL HISTORY: LLL pneumonia; also w/ RLL rales COMPARISON STUDY: 06/06/2025 and 06/19/2025 FINDINGS: Stable pacemaker. Stable cardiomegaly with mild pulmonary vascular congestion. There is faint reticular and patchy opacity at the left lung base, best seen on the lateral view. No lobar consolidation or pleural effusion. No pneumothorax. IMPRESSION: Persistent mild left lower lobe pneumonia, improved. ACT 112: Negative or not required by law. Electronically signed by: Med Crane M.D. 06/22/2025 1:28 PM PG Care Time/CCT Total # of Minutes Spent Total Time Spent with Patient: Total time spent is greater than 50% in coordination of care (as documented) at patient's floor/unit and/or counseling patient: Coding Level of Care Code 09200 SUB INP/OBS CARE 2/35MIN Diagnoses LLL pneumonia J18.9 Pneumonia type: due to unspecified organism Hospital-acquired pneumonia J18.9; Y95 Mild intermittent asthma without complication J45.20 Asthma severity: mild Asthma persistence: intermittent Asthma complication type: uncomplicated Immunodeficiency syndrome D84.9 Typical atrial flutter I48.3 Atrial flutter type: typical CLL (chronic lymphocytic leukemia) C91.90 SIADH (syndrome of inappropriate ADH production) E22.2 Anxiety F41.9 (1) LLL pneumonia Pneumonia type: due to unspecified organism Qualified Code(s): J18.9 - Pneumonia, unspecified organism (3) Asthma Asthma severity: mild Asthma persistence: intermittent Asthma complication type: uncomplicated Qualified Code(s): J45.20 - Mild intermittent asthma, uncomplicated (5) Atrial flutter Atrial flutter type: typical Qualified Code(s): I48.3 - Typical atrial flutter
[2025-06-22] MEDS ORDERED: IMMUNE GLOBULIN (HUMAN) SOLN IV ONE (11:27)
[2025-06-22] MEDS: ACETAMINOPHEN 500 MG TAB PO ONE (12:32)
[2025-06-22] MEDS: diphenhydrAMINE Capsule 25 MG CAP PO ONE (12:33)
[2025-06-22] MEDS: Octagam 10% IVIG 5 gram bottle IV SCH (13:18)
--- NOTE | 2025-06-22 13:29 | XRay Report ---
XR chest 2V PA/lateral CLINICAL HISTORY: LLL pneumonia; also w/ RLL rales COMPARISON STUDY: 06/06/2025 and 06/19/2025 FINDINGS: Stable pacemaker. Stable cardiomegaly with mild pulmonary vascular congestion. There is ashley nt reticular and patchy opacity at the left lung base, best seen on the lateral view. No lobar consol idation or pleural effusion. No pneumothorax. IMPRESSION: Persistent mild left lower lobe pneumonia, improved. ACT 112: Negative or not required by law. Electronically signed by: Med Crane M.D. 06/22/2025 1:28 PM
[2025-06-22] MEDS: Octagam 10% IVIG 20 gram bottle IV SCH (14:01)
--- NOTE | 2025-06-22 15:15 | Infectious Disease Progress Nt ---
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 Rif replaced by Arikayce 12/2019. Continued through 08/2020, stopped due to severe leukopenia. Continued with surveillance without obvious recurrence) who presented on 06/19 with worsening chest pressure, cough, fatigue, fever, AMS, found to have LLL pneumonia. Pt was recently admitted 06/06 - 06/11 with dyspnea on exertion, chest tightness. CTA chest 06/06 was without PE, pneumonia, pulmonary edema. She was COVID-19, flu, RSV negative. Was given nebs, steroids, but symptoms did not fully resolve. Nuclear stress test showed possible area of anterolateral ischemia, was advised to follow-up with cardiology. On presentation 06/19, pt reported fever x 3 days, worsening shortness of breath. Has been taking Lasix 40 mg to help with fluid retention from her recent steroid course. On presentation, T 37.6, HR 114, 94% on room air. Labs showed WBC 12.55, BNP 686, procalcitonin 0.07. MRSA nares negative. RVP negative. Rapid Strep negative. Lyme screen negative. Anaplasma/Babesia smear negative, PCR pending. CTA chest showed no PE, dense LLL consolidation consistent with pneumonia, findings of CHF with cardiomegaly and mild pulm edema, sequela of remote granulomatous infection. Received ceftriaxone and azithro in the ED, then ceftriaxone changed to Zosyn. Pt was given a 10 day course of amox/clav on 05/26 at PCP visit for URI/sinus symptoms. Now feeling improved on Zosyn. BCx NGTD, urine Legionella neg. Recommendations: - Continue Zosyn. If continued improvement, could transition to levofloxacin 750 mg PO q24h on discharge to complete a total 7 day course through 06/25 - Discontinued azithro - Follow-up non-finalized sputum cx Will sign off, but please re-consult ID if pt clinically worsening or sputum cx with significant growth Admission and Anticipated Discharge Date Admission Date: June 19, 2025 Subjective This patient recommendation is based on a telemedicine consult request which was completed asynchronously through chart review and information provided by the primary physician. The patient was not seen or examined today. The evaluation is consultative in nature and all patient care and treatment decisions can either be accepted or rejected by the patient's primary hospital-based treating physician using their own independent medical judgment for their patient. An e-consult was performed as the video cart is not functioning. Time Spent Reviewing Chart: 11 - 20 minutes Pt feeling improved Remains on room air, afebrile Results & Data Vital Signs (Past 12 Hours) Vital Signs Temp Pulse Pulse Resp BP BP Pulse Ox 06/22/25 13:59 70 16 97 06/22/25 10:39 36.6 C 69 18 136/79 96 06/22/25 09:00 06/22/25 08:00 83 06/22/25 07:37 84 16 98 06/22/25 04:57 79 18 95 06/22/25 04:45 36.6 C 80 18 168/103 H 96 06/22/25 04:00 Pulse Ox O2 Del Method O2 Del Method 06/22/25 13:59 Room Air 06/22/25 10:39 Room Air 06/22/25 09:00 Room Air 06/22/25 08:00 06/22/25 07:37 Room Air 06/22/25 04:57 Room Air 06/22/25 04:45 Room Air 06/22/25 04:00 95 Room Air (1) LLL pneumonia Pneumonia type: due to unspecified organism Qualified Code(s): J18.9 - Pneumonia, unspecified organism
[2025-06-23 06:30] LABS: Hematocrit (blood only) 31.5 % (37.0-47.0); Hemoglobin 10.1 g/dl (12.0-16.0); Mean Corpuscular Hemoglobin 30.0 pg (25.0-34.0); Mean Corpuscular Volume 93.5 fL (80.0-100.0); Platelet Count 268 K/uL (130-400); RDW Standard Deviation 48.3 fL (36.4-46.3); Red Blood Count 3.37 M/uL (4.20-5.40); White Blood Count 7.55 K/ul (4.8-10.8)
[2025-06-23 06:57] LABS: INR 3.5 (0.9-1.1); Prothrombin Time 33.8 Seconds (9.0-12.0)
--- NOTE | 2025-06-23 12:28 | Hospitalist Progress Note ---
Date of Service June 23, 2025 Assessment & Plan (1) LLL pneumonia: (2) Hospital-acquired pneumonia: (3) Asthma: (4) Immunodeficiency syndrome: (5) Atrial flutter: (6) CLL (chronic lymphocytic leukemia): (7) SIADH (syndrome of inappropriate ADH production): (8) Anxiety: Plan #Hospital acquired pneumonia - LLL - -clinically improved/resolving -stable in RA; has never required NC o2 since admission -day #5/5 of azithromycin - discontinue -day #5 of IV zosyn - stop, change to PO levaquin 750mg daily x 2 doses starting 06/24 -appreciate ID recs -legionella urine ag negative -respiratory biofire negative -appreciate ID consultation -sputum cx negative #Asthma exacerbation - -improved -received Solu-Medrol 125mg IV 06/20 -since then on solumedrol IV daily -will wean to 20mg IV daily starting 06/24 -cont Duonebs QID -cont usual maintenance inhalers -cont saline nebs BID -post cath will change to PO prednisone for a few more days then stop all systemic sterodis #positive Lexiscan stress test - -had such during last admission 2 weeks ago -[facility] - Dr Miller - to perform L heart cath tomorrow, 06/24 -NPO after MN tonight for such -patient aware of cath #Immunodeficiency / CLL - -follows with [facility] oncology Dr Dylon Lilly -receives IVIG (Gammagard) infusions every 4-6 weeks. Last infusion was 8 weeks ago. -IgG, IgM, IgA all low -s/p IVIG 25gm x 1 on 06/22 w/o incident #Atrial Fibrillation/Flutter - -In ER she had several runs of wide-complex tachycardia (~100 bpm) that spontaneously resolved - a.fib/flutter with aberancy? -last admit and this admit with persistent a.fib/flutter -INR today >3.5--> HOLD warfarin -daily INR while here -cont metoprolol, flecainide #acute metabolic encephalopathy - -2nd to LLL pneumonia -altered MS resolved cont PT/OT patient wants acute rehab post-d/c - [facility]? Admission and Anticipated Discharge Date Admission Date: June 19, 2025 Subjective no events overnight continues to feel better cough is minimal dyspnea improved no chest pains tele - a.fib with rates <100 Dr Miller saw today - to have L heart diagnostic cath tomorrow Review of Systems Review of Systems: gen - fatigue improving, appetite improving cv - no chest pain or tightness GI - no N/V pulm - no wheezing Physical Exam Physical Exam: gen - NAD, sitting in chair, NAD neck - no JVD mouth - MMM, no thrush heart - RRR, s1 s2, no murmur lungs - improving rales L base, minimal rales RLL; no wheezes; normal airation; no increased work of breathing abd - soft NT ND BS+ ext - no edema, pulses 2+ b/l feet psych - a/o x 3 Results & Data Results & Data Vital Signs (Past 12 Hours) Vital Signs Temp Pulse Pulse Resp BP BP Pulse Ox 06/23/25 11:34 74 18 130/84 06/23/25 11:33 76 18 133/85 06/23/25 11:32 37.0 C 70 18 125/86 95 06/23/25 11:01 72 06/23/25 07:50 67 18 98 06/23/25 07:40 06/23/25 07:39 36.7 C 79 18 150/97 H 97 06/23/25 04:20 36.4 C L 79 18 167/104 H 96 O2 Del Method 06/23/25 11:34 06/23/25 11:33 06/23/25 11:32 Room Air 06/23/25 11:01 06/23/25 07:50 Room Air 06/23/25 07:40 Room Air 06/23/25 07:39 Room Air 06/23/25 04:20 Room Air Laboratory Results Laboratory Results - last 48 hr 06/19/25 06/20/25 06/22/25 10:37 22:09 06:05 WBC RBC Hgb Hct MCV MCH MCHC RDW Std Deviation RDW Coeff of Imani Plt Count MPV PT INR Sodium Potassium Chloride Carbon Dioxide Anion Gap BUN Creatinine Est Cr Clr Drug Dosing eGFR BUN/Creatinine Ratio Glucose POC Glucose Calcium Magnesium 2.2 A. phagocytophilum DNA Negative Babesia microti DNA PCR Not Detected Urine Legionella Ag SEE NOTE 06/22/25 06/22/25 06/22/25 08:05 12:05 17:03 WBC RBC Hgb Hct MCV MCH MCHC RDW Std Deviation RDW Coeff of Imani Plt Count MPV PT INR Sodium Potassium Chloride Carbon Dioxide Anion Gap BUN Creatinine Est Cr Clr Drug Dosing eGFR BUN/Creatinine Ratio Glucose POC Glucose 99 100 H 176 H Calcium Magnesium A. phagocytophilum DNA Babesia microti DNA PCR Urine Legionella Ag 06/22/25 06/23/25 06/23/25 21:14 05:33 07:44 WBC 7.55 RBC 3.37 L Hgb 10.1 L Hct 31.5 L MCV 93.5 MCH 30.0 MCHC 32.1 RDW Std Deviation 48.3 H RDW Coeff of Imani 14.1 Plt Count 268 MPV 9.1 L PT 33.8 H INR 3.5 H Sodium Potassium Chloride Carbon Dioxide Anion Gap BUN Creatinine Est Cr Clr Drug Dosing eGFR BUN/Creatinine Ratio Glucose POC Glucose 145 H 91 Calcium Magnesium A. phagocytophilum DNA Babesia microti DNA PCR Urine Legionella Ag Microbiology 06/21/25 20:24 Sputum, Expectorated Gram Stain - Final 06/21/25 20:24 Sputum, Expectorated Sputum Culture - Final Light normal milady. 06/19/25 10:37 Blood Aerobic Blood Culture - Preliminary No growth in Aerobic bottle after 48 hours. 06/19/25 10:37 Blood Anaerobic Blood Culture - Preliminary No growth in Anaerobic bottle after 48 hours. 06/19/25 10:30 Blood Aerobic Blood Culture - Preliminary No growth in Aerobic bottle after 48 hours. 06/19/25 10:30 Blood Anaerobic Blood Culture - Preliminary No growth in Anaerobic bottle after 48 hours. PG Care Time/CCT Total # of Minutes Spent Total Time Spent with Patient: Total time spent is greater than 50% in coordination of care (as documented) at patient's floor/unit and/or counseling patient: Coding Level of Care Code 00205 SUB INP/OBS CARE 2/35MIN Diagnoses LLL pneumonia J18.9 Pneumonia type: due to unspecified organism Hospital-acquired pneumonia J18.9; Y95 Mild intermittent asthma without complication J45.20 Asthma complication type: uncomplicated Asthma persistence: intermittent Asthma severity: mild Immunodeficiency syndrome D84.9 Typical atrial flutter I48.3 Atrial flutter type: typical CLL (chronic lymphocytic leukemia) C91.90 SIADH (syndrome of inappropriate ADH production) E22.2 Anxiety F41.9 (1) LLL pneumonia Pneumonia type: due to unspecified organism Qualified Code(s): J18.9 - Pneumonia, unspecified organism (3) Asthma Asthma complication type: uncomplicated Asthma persistence: intermittent Asthma severity: mild Qualified Code(s): J45.20 - Mild intermittent asthma, uncomplicated (5) Atrial flutter Atrial flutter type: typical Qualified Code(s): I48.3 - Typical atrial flutter
[2025-06-23] MEDS: PHYTONADIONE 5 MG TAB PO STA (17:39)
[2025-06-24 06:47] LABS: Anion Gap 4.0 (3-11); Blood Urea Nitrogen 15.0 mg/dl (6-23); Calcium 8.1 mg/dl (8.6-10.3); Carbon Dioxide 31.0 mmol/L (21-32); Chloride 99.0 mmol/L (98-107); Creatinine Clr Calc Pharmacy 64.5 ml/min; Glucose 73.0 mg/dl (70-99(Fasting)); Potassium 3.7 mmol/L (3.5-5.1); Sodium 134.0 mmol/L (136-145)
[2025-06-24 07:06] LABS: INR 1.7 (0.9-1.1); Prothrombin Time 17.9 Seconds (9.0-12.0)
--- NOTE | 2025-06-24 09:37 | Pre Anesthesia Assessment ---
Date of Service June 24, 2025 Pre Sedation Assessment Vital Signs Temp Pulse Pulse Resp BP BP Pulse Ox 06/24/25 09:14 72 18 195/111 H 184/96 H 96 06/24/25 09:05 84 06/24/25 08:12 70 18 97 06/24/25 07:49 06/24/25 07:30 36.7 C 76 18 174/102 H 182/107 H 97 06/24/25 05:41 75 16 97 06/24/25 02:55 36.5 C 78 16 160/90 H 95 06/24/25 01:55 88 22 96 06/23/25 23:38 36.5 C 84 16 149/98 H 95 06/23/25 22:00 96 H 06/23/25 21:51 87 20 96 06/23/25 21:00 06/23/25 20:03 36.4 C L 74 18 133/85 97 06/23/25 16:24 36.8 C 83 18 147/91 H 95 06/23/25 14:52 78 06/23/25 13:21 107 H 18 95 06/23/25 11:34 74 18 130/84 06/23/25 11:33 76 18 133/85 06/23/25 11:32 37.0 C 70 18 125/86 95 06/23/25 11:01 72 O2 Del Method 06/24/25 09:14 Room Air 06/24/25 09:05 06/24/25 08:12 Room Air 06/24/25 07:49 Room Air 06/24/25 07:30 Room Air 06/24/25 05:41 Room Air 06/24/25 02:55 Room Air 06/24/25 01:55 Room Air 06/23/25 23:38 Room Air 06/23/25 22:00 06/23/25 21:51 Room Air 06/23/25 21:00 Room Air 06/23/25 20:03 Room Air 06/23/25 16:24 Room Air 06/23/25 14:52 06/23/25 13:21 Room Air 06/23/25 11:34 06/23/25 11:33 06/23/25 11:32 Room Air 06/23/25 11:01 Cardiovascular + irregularly irregular Respiratory + respiratory effort normal Pre-Sedation Airway Assessment Smoking Status: Never smoker Hx Sleep Apnea: No Hx Difficult Intubation: No Short, Thick Neck: No Thyromental Distance: > or= 3.5 Finger Breadths Oral Cavity: + WNL Mallampati Class: III ASA: ASA3 NPO Status Date of Last Intake of Fluids: 06/24/25 Time of Last Intake of Fluids: 07:00 Date of Last Intake of Solid Food: 06/23/25 Time of Last Intake of Solid Foods: 20:00 Procedure Planning Contraindications for Sedation: none Current Medications Reviewed: Yes Notes The planned sedation has been discussed with the patient. Informed Consent was obtained. I have identified the patient, determined the appropriateness of sedation and have assessed the patient immediately prior to the procedure. All medicine(s) and interventions are by my order.
[2025-06-24] MEDS: niCARdipine 2,000 MCG/20 ML SYR ONE (09:59)
[2025-06-24] MEDS: NITROGLYCERIN/D5W 100MCG/ML 20ML SYR ONE (09:59)
[2025-06-24] MEDS: MIDAZOLAM HCL 1 MG/ML 2ML VIAL ONE (10:16)
[2025-06-24] MEDS: HEPARIN (PORCINE) 1000 UNIT/ML 10 ML (CATH LAB USE ONLY) ONE (10:16)
[2025-06-24] MEDS: OPTIRAY 350 ONE (10:16)
--- NOTE | 2025-06-24 10:17 | Cardiac Catheterization ---
[facility] Data: Gate Person Cardiac Status Clinical evaluation leading to the procedure CAD Presenation: Positive Stress Test Diagnostic Physicians Name: Dhaval Miller MD Closure Device Recommendations: Medical Therapy and/or Counseling Cardiac Cath Procedure Full Procedure Date June 24, 2025 Pre-Procedure Diagnosis Pre-Procedure Diagnosis: Positive Stress Test AUC Score AUC Score: 7 Post-Procedure Diagnosis Post-Procedure Diagnosis: Normal Coronary Arteries Procedure(s) Performed Procedure(s) Performed: Coronary Angiography and Left Heart Cath Stockroom Worker Dhaval Miller MD Estimated Blood Loss Estimated Blood Loss: 7cc Medication(s) Medication(s): Fentanyl, Heparin, Lidocaine 1%, Nicardipine, Nitroglycerin and Versed Summary of Findings Procedure performed: Left heart catheterization, selective coronary angiography Staff risk management internship: Dhaval Miller MD Indication: The patient is a 74-year-old woman with symptoms of exertional chest pain and dyspnea. She previously undergone perfusion imaging which suggested ischemia Procedure in detail: The patient was informed of the risks benefits and alternatives to the intended procedure, he understood such and wished to proceed. She was taken to the cardiac catheterization suite in a fasting state. Conscious sedation was administered per protocol and the patient was monitored electrocardiographically throughout today's procedure. The right wrist area was prepped and draped in usual sterile fashion. This area was anesthetized using subcutaneous administration of a lidocaine solution. The right radial artery was then accessed using Seldinger technique, and a arterial sheath was placed at this site over a guidewire. The sheath was used to facilitate passage of the cardiac catheter for coronary angiography and left heart catheterization. Coronary angiogram was then obtained in multiple orthogonal views prior to removal of the catheter. At the conclusion of the procedure the sheath was removed and hemostasis was achieved at the access site using manual pressure. The patient tolerated procedure well, there were no immediate complications. Equipment used: 5 [place] 4, 5 [place] 3 [facility] Findings: Coronary angiography Left Main: Left main was a relatively short vessel but did bifurcate normally into the left anterior sending left circumflex arteries. No disease at this point Left anterior descending: left anterior descending was a large vessel which produced a very large first diagonal system and a relatively small ongoing distal LAD. No obstructive lesions Left circumflex: Left circumflex was a nondominant vessel. Reduced to a very high first OM vessel, a large second obtuse marginal vessel and a small ongoing AV groove vessel. Large recurrent atrial branch noted as well. No structural lesions in this vessel. Right coronary artery: A coronary was a dominant vessel. It had approximate 50% tapering in its midportion without discrete stenosis. Reproduced normal PLB and PDA branch. No other obstructive disease. Impression: Right dominant coronary system Mild nonobstructive disease in the mid right coronary Normal left ventricular filling pressures No aortic stenosis Hemodynamics Rest Ao:: 144/83 mmHg Final Ao: 146/76 mmHg LV: 138/4 mmHg Left ventricular end-diastolic pressure 13 mmHg Recommendations Recommendations: Medical Therapy and/or Counseling Radiation Exposure (mGy) 781 Contrast (mls) 40 Procedural Complication(s) None Disposition Gate Person Holding/Recovery I attest to the content of the Intraoperative Record and any orders documented therein. Any exceptions are noted below. [facility] Card Cath Procedure Codes Cardiac Catheterization Procedure 1: Cardiovascular Cath Procedures: 76090 Coronaries and LHC (+/-LV) Moderate Sedation Procedure 1: Sedation/Anesthesia: 58487 Mod Sedation by the same physician;Init15 Min Child Age 5 & Up Procedure 2: Sedation/Anesthesia: 72895 Mod Sedation by the same physician; Ea [id number] Minutes PG Care Time/CCT Total # of Minutes Spent Total Time Spent with Patient: Total time spent is greater than 50% in coordination of care (as documented) at patient's floor/unit and/or counseling patient:
--- NOTE | 2025-06-24 10:18 | Post Anesthesia Assessment ---
Date of Service June 24, 2025 Post Sedation Assessment Vital Signs Temp Pulse Pulse Resp BP BP Pulse Ox 06/24/25 09:14 72 18 195/111 H 184/96 H 96 06/24/25 09:05 84 06/24/25 08:12 70 18 97 06/24/25 07:49 06/24/25 07:30 36.7 C 76 18 174/102 H 182/107 H 97 06/24/25 05:41 75 16 97 06/24/25 02:55 36.5 C 78 16 160/90 H 95 06/24/25 01:55 88 22 96 06/23/25 23:38 36.5 C 84 16 149/98 H 95 06/23/25 22:00 96 H 06/23/25 21:51 87 20 96 06/23/25 21:00 06/23/25 20:03 36.4 C L 74 18 133/85 97 06/23/25 16:24 36.8 C 83 18 147/91 H 95 06/23/25 14:52 78 06/23/25 13:21 107 H 18 95 06/23/25 11:34 74 18 130/84 06/23/25 11:33 76 18 133/85 06/23/25 11:32 37.0 C 70 18 125/86 95 06/23/25 11:01 72 O2 Del Method 06/24/25 09:14 Room Air 06/24/25 09:05 06/24/25 08:12 Room Air 06/24/25 07:49 Room Air 06/24/25 07:30 Room Air 06/24/25 05:41 Room Air 06/24/25 02:55 Room Air 06/24/25 01:55 Room Air 06/23/25 23:38 Room Air 06/23/25 22:00 06/23/25 21:51 Room Air 06/23/25 21:00 Room Air 06/23/25 20:03 Room Air 06/23/25 16:24 Room Air 06/23/25 14:52 06/23/25 13:21 Room Air 06/23/25 11:34 06/23/25 11:33 06/23/25 11:32 Room Air 06/23/25 11:01 Recovery Score Activity: Moves 4 extremities Respiration: Deep Breath/Cough Circulation: +/-20% PreAnes Value Consciousness: Fully Awake Oxygen Saturation: > 92% On Room Air Discharge Sedation Level of Care: Fast Track Phase II Post Sedation Plan On clinical assessment, the patient appears to have tolerated the sedation without complications. Patient is recovering as anticipated. Patient will continue to be monitored by nursing and may be discharged when sedation discharge criteria are met per below protocol. Upon Completions of procedure up to 15 minutes continue every 5 minute vital signs and the P.A.R. score; then discharge to a Phase I or Fast Track to Phase II per the following guidelines: * Discharge Patient to appropriate Phase II area if PAR is 8 or greater or return to pre- procedure baseline. The post - procedure orders will be as directed. * If PAR score is less than 8 or not return to pre-procedure baseline then patient will follow Phase I monitoring till PAR is reached for Phase II. The Phase I may be done in procedure room or may call to secure a Phase I area. * If naloxone or flumazenil are used for reversal, hold in Phase I for continued monitoring from when last reversal dose was given for a minimum of 60 minutes or longer pending the nurse and/or physician discretion of patient condition before discharge to Phase II. Please call the Sedation Physician to re-evaluate and complete post-note for discharge to Phase II area. Do NOT discharge from procedure sedation or Phase 1 until post- sedation evaluation note is complete by procedure /sedation MD Sedation Discharge Instructions to be given to the patient at discharge to home.
--- NOTE | 2025-06-24 20:25 | Hospitalist Progress Note ---
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): (8) Anxiety: (9) Nonobstructive atherosclerosis of coronary artery: Plan #Hospital acquired pneumonia - LLL - -clinically improved/resolving -stable in RA; has never required NC o2 since admission -previously completed 5 days of azithromycin -previously completed 5 days of IV zosyn -changed to PO levaquin 750mg daily x 2 doses starting today -appreciate ID recs -legionella urine ag negative -respiratory biofire negative -appreciate ID consultation -sputum cx negative -blood cx's negative #Asthma exacerbation - -improved -received Solu-Medrol 125mg IV 06/20 -since then on solumedrol IV daily -will wean to 20mg IV daily today -then over to prednisone next 2 days -cont Duonebs QID -cont usual maintenance inhalers -cont saline nebs BID #positive Lexiscan stress test - -had such during last [place] 2 weeks ago [place] [place] - performed L heart cath today - only mild non- obstructive CAD in RCA, otherwise clean vessels -thus CAD ruled out as cause of chronic TILLMAN #Immunodeficiency / CLL - -follows with [facility] oncology Dr Dylon Lilly -receives IVIG (Gammagard) infusions every 4-6 weeks. Last infusion was 8 weeks ago. -IgG, IgM, IgA all low -s/p IVIG 25gm x 1 on 06/22 w/o incident #Atrial Fibrillation/Flutter - -In ER she had several runs of wide-complex tachycardia (~100 bpm) that spontaneously resolved - a.fib/flutter with aberancy? -last admit and this admit with persistent a.fib/flutter -HOLD warfarin today, resume tomorrow 06/25 -daily INR while here -cont metoprolol, flecainide #acute metabolic encephalopathy - resolved -was 2nd to LLL pneumonia #non-obstructive CAD - -can stop aspirin given chronic warfarin use cont PT/OT patient wants acute rehab post-d/c - [facility] can go there this weekend if bed available daughter updated by phone this evening 06/24 Admission and Anticipated Discharge Date Admission Date: June 19, 2025 Subjective saw patient post-cath she was relieved to hear no obstructive CAD mild oozing from her right radial cath site but not severe feels good otherwise no significant cough no wheeze no chest pain no dyspnea at rest Review of Systems Review of Systems: CV - no orthopean, no edema pulm - no dyspnea on exertion w/ walking in room Physical Exam Physical Exam: gen - NAD, laying in bed, looks well neck - no JVD mouth - MMM, no thrush heart - RRR, s1 s2, no murmur lungs - improving rales L base, minimal rales RLL; no wheezes; normal airation; no increased work of breathing abd - soft NT ND BS+ ext - no edema, pulses 2+ b/l feet psych - a/o x 3 vascular - right radial artery - minimal oozing of blood; no hematoma Results & Data Results & Data Vital Signs (Past 12 Hours) Vital Signs Temp Pulse Pulse Pulse Resp BP BP 06/24/25 15:19 36.7 C 88 18 145/86 H 06/24/25 14:33 36.5 C 86 17 144/81 H 06/24/25 14:15 76 06/24/25 13:33 36.5 C 74 18 154/90 H 06/24/25 12:59 78 16 06/24/25 12:33 36.6 C 83 17 131/72 06/24/25 11:33 36.5 C 66 17 157/93 H 06/24/25 11:24 36.5 C 66 18 157/93 H 06/24/25 11:17 36.5 C 90 16 146/84 H 06/24/25 11:02 36.5 C 85 17 141/92 H 06/24/25 10:46 36.5 C 70 17 172/102 H 06/24/25 10:34 73 77 18 176/120 H 06/24/25 10:20 77 77 18 152/104 H 06/24/25 09:14 72 18 195/111 H 184/96 H 06/24/25 09:05 84 Pulse Ox O2 Del Method 06/24/25 15:19 96 Room Air 06/24/25 14:33 95 Room Air 06/24/25 14:15 06/24/25 13:33 95 Room Air 06/24/25 12:59 96 Room Air 06/24/25 12:33 97 Room Air 06/24/25 11:33 96 Room Air 06/24/25 11:24 96 Room Air 06/24/25 11:17 96 Room Air 06/24/25 11:02 95 Room Air 06/24/25 10:46 90 Room Air 06/24/25 10:34 93 Room Air 06/24/25 10:20 92 Room Air 06/24/25 09:14 96 Room Air 06/24/25 09:05 Laboratory Results Laboratory Results - last 48 hr 06/19/25 06/24/25 10:37 05:59 PT 17.9 H INR 1.7 H Sodium 134 L Potassium 3.7 Chloride 99 Carbon Dioxide 31 Anion Gap 4 BUN 15 Creatinine 0.71 Est Cr Clr Drug Dosing 64.5 eGFR 89.72 BUN/Creatinine Ratio 21.1 H Glucose 73 Calcium 8.1 L Babesia microti DNA PCR Not Detected Diagnostic Findings Coronary angiography, L heart cath: Left Main: Left main was a relatively short vessel but did bifurcate normally into the left anterior sending left circumflex arteries. No disease at this point Left anterior descending: left anterior descending was a large vessel which produced a very large first diagonal system and a relatively small ongoing distal LAD. No obstructive lesions Left circumflex: Left circumflex was a nondominant vessel. Reduced to a very high first OM vessel, a large second obtuse marginal vessel and a small ongoing AV groove vessel. Large recurrent atrial branch noted as well. No structural lesions in this vessel. Right coronary artery: A coronary was a dominant vessel. It had approximate 50% tapering in its midportion without discrete stenosis. Reproduced normal PLB and PDA branch. No other obstructive disease. PG Care Time/CCT Total # of Minutes Spent Total Time Spent with Patient: Total time spent is greater than 50% in coordination of care (as documented) at patient's floor/unit and/or counseling patient: Coding Level of Care Code 58470 SUB INP/OBS CARE 2/35MIN Diagnoses LLL pneumonia J18.9 Pneumonia type: due to unspecified organism Hospital-acquired pneumonia J18.9; Y95 Mild intermittent asthma without complication J45.20 Asthma complication type: uncomplicated Asthma persistence: intermittent Asthma severity: mild Immunodeficiency syndrome D84.9 Typical atrial flutter I48.3 Atrial flutter type: typical CLL (chronic lymphocytic leukemia) C91.90 SIADH (syndrome of inappropriate ADH production) E22.2 Anxiety F41.9 Nonobstructive atherosclerosis of coronary artery I25.10 (1) LLL pneumonia Pneumonia type: due to unspecified organism Qualified Code(s): J18.9 - Pneumonia, unspecified organism (3) Asthma Asthma complication type: uncomplicated Asthma persistence: intermittent Asthma severity: mild Qualified Code(s): J45.20 - Mild intermittent asthma, uncomplicated (5) Atrial flutter Atrial flutter type: typical Qualified Code(s): I48.3 - Typical atrial flutter
[2025-06-25 06:25] LABS: INR 1.2 (0.9-1.1); Prothrombin Time 12.8 Seconds (9.0-12.0)
[2025-06-25 11:53] VITALS: TEMP 97.9
[2025-06-25 13:13] VITALS: RESP 18; O2SAT 94
[2025-06-25] MEDS: NYSTATIN SUSP 500,000 U/5 ML UDC PO STA (15:30)
[2025-06-25 17:13] VITALS: BP 184/96; PULSE 73
--- NOTE | 2025-06-25 17:18 | Discharge Summary ---
Discharge Summary Date of Service date of admission - June 19, 2025 date of discharge - June 25, 2025 Principal Dx & Hospital Course #1 = Principal Diagnosis (1) LLL pneumonia: (2) Hospital-acquired pneumonia: (3) Asthma: (4) Immunodeficiency syndrome: (5) Atrial flutter: (6) CLL (chronic lymphocytic leukemia): (7) SIADH (syndrome of inappropriate ADH production): (8) Anxiety: (9) Nonobstructive atherosclerosis of coronary artery: (10) Candidiasis of mouth and esophagus: Plan #Hospital acquired pneumonia - LLL - -clinically improved/resolving -was stable in room air the entire hospitalization; never required NC O2 while here -completed 5 days of azithromycin -completed 5 days of IV zosyn -changed to PO levaquin 750mg daily x 2 doses following the zosyn course -infectious disease provided antibiotic recommendations during the admission -legionella urine antigen was negative -respiratory biofire was negative -sputum cx was negative -blood cx's were negative -recommend repeat chest x-ray in 6-8 weeks to ensure radiographic resolution of the LLL pneumonia #Asthma exacerbation - -improved with IV steroids, duonebs, saline neb treatments, and supportive care -will complete a short prednisone taper at discharge -cont usual maintenance inhalers -consider outpatient pulmonary rehab -f/u with primary java sql developer for ongoing care (there had been discussion about adding a biologic agent in the near-future for improved control) #recent positive Lexiscan stress test - -had such during previous admission (06/10/25) [place] [place] Dhaval Miller - performed L heart cath due to the positive stress test and potentially ischemic symptoms (chest tightness, dyspnea on exertion, etc) -only mild non-obstructive CAD in RCA was seen, otherwise clean epicardial vessels -thus CAD ruled out as cause of chronic dyspnea on exertion #Immunodeficiency / CLL - -follows with [facility] oncology Dr Dylon Lilly for her CLL and IVIG management -receives IVIG (Gammagard) infusions every 4-6 weeks. Last infusion was 8 weeks ago. -IgG, IgM, IgA checked & all low -s/p IVIG 25gm x 1 on 06/22/25 w/o incident #Atrial Fibrillation/Flutter - -In ER she had several runs of wide-complex tachycardia (~100 bpm) that spontaneously resolved - a.fib/flutter with aberrancy? -last admission and this admission with persistent a.fib/a.flutter -INR was 1.2 on day of discharge (had been held in the midst of her left heart catheterization) -resume coumadin 5mg daily -cont metoprolol, flecainide -follow-up with Dr Miller - [facility] [place] post-discharge for a.fib/a.flutter management #acute metabolic encephalopathy - resolved -was 2nd to L pneumonia #non-obstructive CAD - as seen on left heart catheterization - -can stop aspirin given chronic warfarin use #history of SIADH / hyponatremia - -Na level was 131 to 134 during the hospitalization -discharge Na level was 134 -Na level has been mildly low going back to at least 2017 or even sooner #pacemaker status - -follows with [place] Jamaal Miller - [facility] -h/o sick sinus syndrome, a.fib/a.flutter #thrush - -nystatin solution - 5ml AC/HS swish & spit x 7 days received PT/OT while hospitalized patient wanted to attend acute rehab post-d/c - thus, transferring to [facility] Admission HPI Per Admitting Provider Patient is a 74yo F w/ hx of CLL, microscopic colitis, sick sinus syndrome, pa roxysmal atrial fib/flutter, HTN, asthma who presents with worsening chest pressure, cough, fatigue, fever, and altered mental status. Patient was admitted from 06/06/2025 until 06/11/2025 and treated for dyspnea on exertion / chest tightness. She underwent stress test that was equivocal and also given Lasix and diuresed. She was discharged and did pretty well for a few days, but developed further fatigue on . She started to sleep several hours at a time. Daughter (in the room) reports increased confusion as well with texts that didn't make sense. On Friday/Friday, the patient reports increased fevers, dry "hacky" cough, and mild hemoptysis. Fever was measured at 100.5 last night and 101 this morning precipitating her coming back to the ER. Her mild hemoptysis was pinkish sputum while coughing. She notes continue TILMLAN where she will get chest tightness, shortness of breath, and sometimes palpitations with exertion. She previously could walk up her flight of steps without stopping; now she stops [facility] to rest. She notes some LE edema that is close to its baseline for her. She also notes that she has been taking Lasix 40 mg daily for the last 4 days, but feels kind of "dry" with endorsement of orthostatic hypotension. Finally, she notes that she has CLL managed by a [facility] oncologist. She gets IgG infusions every 4 weeks, but had been doing well and it was spaced to every 6 weeks; however, she missed her last dose as she was in the hospital. It has been nearly 2 months now, and she is to get her next infusion this Friday. Discharge Exam gen - NAD, laying in bed, looks well neck - no JVD mouth - MMM, mild thrush posterior pharynx heart - RRR, s1 s2, no murmur lungs - improving rales L base, minimal rales RLL; no wheezes; normal airation; no increased work of breathing abd - soft NT ND BS+ ext - no edema, pulses 2+ b/l feet psych - a/o x 3 vascular - right radial artery - no aneurysm; no hematoma; 2+ radial pulse Discharge Plan Discharge Items Patient Disposition: Transfer Inpatient Rehab Fac Reason For Visit: PNEUMONIA, CHEST PAIN Discharge Diagnosis: 1. left lower lobe pneumonia - resolving 2. asthma with exacerbation - resolved 3. chest pain - no evidence of heart attack; cardiac catheterization with only 1 artery containing mild plaque build-up 4. CLL 5. hypogammaglobulinemia - IVIG given on 06/22/25 6. atrial fibrillation 7. pacemaker 8. chronic warfarin usage; discharge INR 1.2 9. thrush of mouth Activity: Per Instructions section Non-emergency contact: Primary Care Provider and Clearing Inspector Call non-emergency contact if: you have any medication questions, your symptoms worsen and you have a fever Follow-up/Referrals: Holli Wheeler, [Primary Care Provider] - (within 1 week of discharge from rehab ) Ace Sumner M.D. [Outside Practitioners] - (see your lung doctor within 2 weeks of discharge from rehab ) Diet: Gluten Free and Heart Healthy Fluids: 1500ml (6 cups) Addtl Attending Provider Instructions: Ms Rodriguez was hospitalized for Left lower lobe pneumonia. She improved nicely with 5 days of IV antibiotics followed by 2 days of oral antibiotics (treatment course is complete). During the stay there was never an oxygen requirement. Blood cultures were negative. Due to chronic difficulties with shortness of breath on exertion & chest tightness cardiology was consulted. Given her symptoms as well as a recently abnormal stress test Ms Rodriguez underwent heart catheterization on 06/24/25. This showed normal coronary arteries except for 1 vessel (right coronary artery) that was about 50% narrowed. Thus, her chronic shortness of breath is not due to coronary artery disease. Atrial fibrillation was under good control while here. Asthma was treated with steroids, nebs, and inhalers. Coumadin was held for several days due to high INR as well as need for heart catheterization. Vitamin K was given in preparation for the heart catheterization as well. Discharge INR was 1.2 on 06/25/25. Recommendations: 1. Please resume coumadin at 5mg once daily on 06/26/25. 2. Daily INR starting 06/26/25. 3. Repeat BMP/magnesium in 3-4 days for stability. 4. See dedicated instructions for her right wrist following heart catheterization. 5. Consider outpatient pulmonary rehab. It was our pleasure to care for Ms Rodriguez! -Tye Paniagua It Security Consulting Director Provider Instructions: ACTIVITY RECOMMENDATIONS following heart catheterization: It is common to feel weak and fatigue for a few days. * Do not drive or operate any motorized equipment for the next three days. * Limit stair usage (2 or 3 trips a day only) for the next three days. * Do not lift anything heavier than 10 pounds for the next three days. * Do not engage in vigorous exercise or any sports for the next five days. * You may shower the day after your procedure, but do not immerse the area (RIGHT WRIST) for three days. Cleanse the site gently with soap and water. SPECIAL CARE INSTRUCTIONS: * You may replace the pressure dressing or band-aid the morning after the procedure. * After your procedure, it is normal to have a small bruise or small lump at the site. Examine your site daily for any change in the bruise or lump, redness, swelling, drainage or numbness. Notify your doctor if any change. BLEEDING: * If there is a small amount of bleeding at the site, lie down and apply firm pressure with a clean cloth for ten minutes. When the bleeding stops, lie quietly keeping the procedure limb straight for six hours. Notify your doctor as soon as possible. * If the bleeding does not stop after ten minutes or if there is a large amount of bleeding or spurting, call 911 immediately. Continue to lie down and hold firm pressure until help arrives. SKIN IRRITATION: * You may experience some redness and/or swelling in the area where radiation was administered. If any skin irritation occurs, please contact your family physician. Pending Studies at Discharge: No Stand-Alone Forms: My [facility] Skilled Items Patient informed of condition?: Yes DNR: No Discharge Level of Care: Acute rehab Communicable Disease: No Discharge Prognosis: Stable Lines: None Urinary Catheter: No Medications and DC Order Prescriptions: New prednisone 10 mg tablet 10 mg PO DIRECTED Qty: 7 0RF Rx Instructions: start 06/26, take with food. 2 tabs PO QD x 2 days; 1 tab PO QD x 2 days; 1/2 tab PO QD x 2 days. Continued budesonide-formoterol 160-4.5 mcg/actuation HFA aerosol inhaler 1 inh inhalation BID Qty: 10.2 0RF Airsupra 90-80 mcg/actuation HFA aerosol inhaler 2 inh inhalation 6XD PRN (Reason: Shortness Of Breath Or Wheezing) flecainide 100 mg tablet 100 mg PO Q12H Qty: 180 3RF sertraline 100 mg tablet 100 mg PO DAILY Qty: 90 3RF metoprolol succinate 50 mg tablet extended release 24 hr 100 mg PO QPM Qty: 180 3RF Rx Instructions: TAKE 2 TABLETS BY MOUTH EVERY DAY Prolia 60 mg/mL syringe 60 mg subcut ONCE Qty: 1 1RF montelukast [Singulair] 10 mg tablet 10 mg PO DAILY zolpidem 5 mg tablet 5 mg PO HS PRN (Reason: insomnia) Qty: 15 1RF lorazepam 0.5 mg tablet 0.5 mg PO Q8H PRN (Reason: anxiety) Qty: 30 1RF Rx Instructions: Ongoing therapy Supervising physician Holli DWYER [id number] STEVIE [id number] ipratropium-albuterol 0.5 mg-3 mg(2.5 mg base)/3 mL solution for nebulization 3 ml INHALATION QID PRN (Reason: Shortness Of Breath Or Wheezing) Qty: 180 2RF cetirizine [Zyrtec] 10 mg Tablet 10 mg PO QPM prochlorperazine maleate 10 mg tablet 10 mg PO Q6H PRN (Reason: Nausea) vitamin B complex Capsule 1 cap PO QAM Rx Instructions: 50 mg Raw [employer] Caps 500 mg capsule 500 mg PO QPM Gammagard Liquid 10 % Solution 25 g IV .4-6WEEKS Patient Comments: gets an infusion every 6 wks Rx Instructions: Due last week in january. Probiotic 10 billion cell Capsule 10,000 mmu cells PO QAM Vitamin C (ascorbate calcium) 814 mg/gram powder 400 mg PO QAM Calcium Magnesium plus D 400-167-133 mg-mg-unit tablet 1 tab PO 3XWK Rx Instructions: MON, WED, & FRI. One-A-Day Womens Formula 18 mg iron-400 mcg-500 mg Tablet 1 tab PO QAM acetaminophen 325 mg Tablet 650 mg PO Q4H PRN (Reason: pain) Qty: 30 0RF warfarin 5 mg tablet 5 mg PO QPM Hold Instructions: Resume on 06/12/25. sodium chloride 7 % solution for nebulization 1 inh inhalation BID PRN (Reason: DIRECTED) benzonatate 100 mg Capsule 100 - 200 mg PO TID PRN (Reason: cough) Qty: 30 0RF omeprazole 20 mg capsule,delayed release(DR/EC) 20 mg PO QAM Qty: 30 1RF Changed potassium chloride 10 mEq tablet extended release 10 meq PO DAILY Qty: 0 0RF furosemide 20 mg tablet 20 - 40 mg PO DIRECTED Qty: 0 0RF Rx Instructions: 2 tablets every other day, 1 tablet every other day Discontinued aspirin 81 mg Tablet,Delayed Release (Dr/Ec) 81 mg PO QAM Qty: 90 1RF Rx Instructions: purchase [id number] Discharge Orders: Discharge Order (Routine); Ordered 06/25/25 Ordered By: Tye Rojas/Other Patient Handouts: Pulmonary Rehab Admission Data Admit Date/Time: 06/19/25 13:50 Attending Provider: Tye Baird Admit Provider: Richy Haile Primary Care Provider: Holli Wheeler Other Providers: [facility]; Peyman Perez; Brigette Arellano; Dhaval Miller Other Interventions: Discharge Summary Assessment (RN) Last Done: 06/25/25 17:11 Hospital Stay Data Consultations Consult Cardiology Routine Consult Infectious Diseases Routine PT, OT Procedures Performed Operation Date: 06/24/25 10:00 Cineradiography w/Routine Exam - Dhaval Miller MD Cath, Left with Cors and Vent - Dhaval Miller MD Coronary angiography Left Main: Left main was a relatively short vessel but did bifurcate normally into the left anterior sending left circumflex arteries. No disease at this point Left anterior descending: left anterior descending was a large vessel which produced a very large first diagonal system and a relatively small ongoing distal LAD. No obstructive lesions Left circumflex: Left circumflex was a nondominant vessel. Reduced to a very high first OM vessel, a large second obtuse marginal vessel and a small ongoing AV groove vessel. Large recurrent atrial branch noted as well. No structural lesions in this vessel. Right coronary artery: A coronary was a dominant vessel. It had approximate 50% tapering in its midportion without discrete stenosis. Reproduced normal PLB and PDA branch. No other obstructive disease. Impression: Right dominant coronary system Mild nonobstructive disease in the mid right coronary Normal left ventricular filling pressures No aortic stenosis Diagnostic Imagining Performed Chest CTA 06/19/25 09:56 HISTORY: Shortness of breath and fever. TECHNIQUE: CT angiography of the chest was performed with IV contrast. Coronal and sagittal 3D MIP reconstructions are provided. COMPARISON: Chest CT dated 06/06/2025. FINDINGS: Lungs: Left lower lobe alveolar consolidation consistent with pneumonia. Calcified left lower lobe granuloma is considered benign. Scattered areas of atelectasis and mild pulmonary edema. No pneumothorax or effusion. The central tracheobronchial tree is patent. Heart/Mediastinum: Cardiomegaly. No pericardial effusion. Coronary artery calcifications are present. Small hiatal hernia. No suspicious mediastinal or hilar lymph nodes. Calcified mediastinal and hilar lymph nodes consistent with remote granulomatous infection. Vasculature: No evidence of acute pulmonary embolism within the limitations of contrast timing and respiratory motion artifact. Main pulmonary artery is normal in caliber. No thoracic aortic aneurysm. Mild atherosclerotic vascular disease of the aorta and arch vessels. Soft Tissues: Pacer generator pack within the superior aspect of the ventral left upper chest wall. Soft tissues of the chest wall are otherwise unremarkable. Upper Abdomen: Unremarkable. Bones: No acute osseous abnormality. Degenerative changes of the shoulders and spine. IMPRESSION: * No evidence of acute pulmonary embolism. * Dense consolidation involving the left lower lobe consistent with pneumonia. * Findings of CHF with cardiomegaly and mild pulmonary edema. Scattered atelectasis. * Sequela of remote granulomatous infection. * Additional chronic and/or incidental findings as above. ACT 112: Positive. There are findings on this exam that require communication between the performing entity and the patient following Patient Test Result Information Act ([place] ACT 112) guidelines. Electronically signed by Pito Pritchett 06-19-2025 12:[address] 06/19/25 09:56 HISTORY: Headache. TECHNIQUE: CT of the head without contrast. Images are presented in axial reformats. Study is limited without coronal or sagittal reformats. COMPARISON: Head CT dated 05/25/2022. FINDINGS: No evidence of intracranial hemorrhage, abnormal extra axial fluid collection, mass effect, or midline shift. Mild volume loss and chronic microvascular ischemic changes.Ventricular caliber is appropriate. Fourth ventricle is midline. Basal cisterns are patent.Gaines-white differentiation is maintained. Globes and orbits are unremarkable.Soft tissues about the skull base and scalp are unremarkable. Bilateral maxillary sinus air-fluid levels. The mastoid air cells are clear. No acute calvarial fracture. IMPRESSION: * Evaluation is limited with no coronal or sagittal reformats provided for interpretation. * No acute intracranial findings within the limitations of the study. * Mild volume loss and chronic microvascular ischemic changes. Electronically signed by Pito Pritchett 06-19-2025 12:05 PM Chest X-Ray 06/22/25 11:31 XR chest 2V PA/lateral CLINICAL HISTORY: LLL pneumonia; also w/ RLL rales COMPARISON STUDY: 06/06/2025 and 06/19/2025 FINDINGS: Stable pacemaker. Stable cardiomegaly with mild pulmonary vascular congestion. There is faint reticular and patchy opacity at the left lung base, best seen on the lateral view. No lobar consolidation or pleural effusion. No pneumothorax. IMPRESSION: Persistent mild left lower lobe pneumonia, improved. ACT 112: Negative or not required by law. Electronically signed by: Med Crane M.D. 06/22/2025 1:28 PM Pending Results Patient Have Any Pending Studies at Discharge: No Discharge Instructions Given to Patient (Per Discharging Provider) Ms Rodriguez was hospitalized for Left lower lobe pneumonia. She improved nicely with 5 days of IV antibiotics followed by 2 days of oral antibiotics (treatment course is complete). During the stay there was never an oxygen requirement. Blood cultures were negative. Due to chronic difficulties with shortness of breath on exertion & chest tightness cardiology was consulted. Given her symptoms as well as a recently abnormal stress test Ms Rodriguez underwent heart catheterization on 06/24/25. This showed normal coronary arteries except for 1 vessel (right coronary artery) that was about 50% narrowed. Thus, her chronic shortness of breath is not due to coronary artery disease. Atrial fibrillation was under good control while here. Asthma was treated with steroids, nebs, and inhalers. Coumadin was held for several days due to high INR as well as need for heart catheterization. Vitamin K was given in preparation for the heart catheterization as well. Discharge INR was 1.2 on 06/25/25. Recommendations: 1. Please resume coumadin at 5mg once daily on 06/26/25. 2. Daily INR starting 06/26/25. 3. Repeat BMP/magnesium in 3-4 days for stability. 4. See dedicated instructions for her right wrist following heart cath eterization. 5. Consider outpatient pulmonary rehab. It was our pleasure to care for Ms Rodriguez! -Tye Baird Total Time Total Time Spent Total Time Spent (In Minutes): 40 Total Time Includes: Examination of the Patient, Discharge Planning and Medic ation Reconciliation Coding Level of Care Code 27632 INP/OBS DISCH >30 MIN Diagnoses LLL pneumonia J18.9 Pneumonia type: due to unspecified organism Hospital-acquired pneumonia J18.9; Y95 Mild intermittent asthma without complication J45.20 Asthma complication type: uncomplicated Asthma persistence: intermittent Asthma severity: mild Immunodeficiency syndrome D84.9 Typical atrial flutter I48.3 Atrial flutter type: typical CLL (chronic lymphocytic leukemia) C91.90 SIADH (syndrome of inappropriate ADH production) E22.2 Anxiety F41.9 Nonobstructive atherosclerosis of coronary artery I25.10 Candidiasis of mouth and esophagus B37.81; B37.0
[2025-06-25] MEDS: WARFARIN SOD 3 MG TAB PO STA (18:07)
[2025-06-25] MEDS ORDERED: NYSTATIN SUSP 500,000 U/5 ML UDC PO SCH (21:00)
== END 2025-06-25 18:15 | DRG 193 ==
LOC: ED 09:32 → SUATTDRO 13:50 → 4W 13:50

== ENCOUNTER 2025-07-19 10:41 | Observation (INO) ==
--- NOTE | 2025-07-19 11:24 | Emergency Department Note ---
Impression & Plan SOB (shortness of breath), Pedal edema, Weight gain, Fluid overload, Elevated brain natriuretic peptide (BNP) level, Failure of outpatient treatment ED Provider Note NAME: ALEC MORENO AGE: 74 SEX: F : 1950 ARRIVES VIA: Walk-In INFORMANT: [Patient] ED PROVIDER(S): [Henri Ray MD] CHIEF COMPLAINT: Shortness of breath HISTORY OF PRESENT ILLNESS: The patient is a 74-year-old female presents to the ED with shortness of breath and fluid buildup for the last week. She has gained 5 pounds. She did try to double her Lasix however, this has not made much of a difference. There is no cough, no fever. She did notice a slight sore throat. As the swelling was not improving, her doctor's office referred her to the ER. The patient feels short of breath primarily with exertion. She states that sitting still, things are not too bad. Last month, she was in the hospital for pneumonia. PMHx/PSHx/Social Hx: See Below PHYSICAL EXAM: GENERAL: Patient is in no acute distress. HEENT: No acute trauma, normocephalic atraumatic, mucous membranes moist, no nasal congestion. NECK: No stridor, no adenopathy, no meningismus, trachea is midline. LUNGS: Crackles at both lower lung valladares bilaterally. No wheezing. No respiratory distress. HEART: Irregular rhythm, no obvious murmur, normal rate. ABDOMEN: Soft, nontender, no peritonitis. EXTREMITIES: No cyanosis, full range of motion of all the joints without pain or difficulty. Moderate bilateral pedal edema. NEUROLOGIC: Oriented x 3, no acute motor or sensory deficits, no focal weakness. SKIN: No jaundice, no diaphoresis. DIFFERENTIAL DIAGNOSIS: Fluid overload, CHF, renal failure, electrolyte imbalance, viral illness, among others. EMERGENCY DEPARTMENT PROCEDURES: MEDICAL DECISION MAKING: There is no leukocytosis. The patient is anemic, however, this is baseline. There was a normal platelet count. No bandemia. INR was high at 3.9, consistent with her warfarin use. There is no electrolyte abnormality or renal failure. No concerning liver enzyme elevation. ECG shows a ventricular pacemaker, no obvious ST elevation. Cardiac enzyme testing x 1 is not consistent with acute cardiac injury. BNP is elevated consistent with fluid overload/CHF. Chest x-ray does not show CHF or pneumonia. Urinalysis does not show findings of infection. Respiratory BioFire was negative. On exam, the patient did have moderate bilateral pedal edema. She had crackles on her lung exam. The patient has been trying to increase her Lasix outpatient without any improvement in her edema or dyspnea. I did order 60 mg IV Lasix, she did diurese during her ED stay. Given the patient's failed outpatient management, given her dyspnea, given the weight gain, given the findings of fluid overload, I do think admission with IV diuresis would be warranted. I did speak with the the patient and case management, the on-call hospitalist was consulted. Prior/Outside records/notes reviewed: Discharge summary note from 06/25/2025 describing her presentation, hospital course and discharge. ECG per my interpretation: Indication was shortness of breath. The ECG shows a ventricular pacemaker with a rate of 85. There is no ST elevation, no PVCs. The QTc is 425. Continuous Cardiac Monitoring per my interpretation: An order was placed for continuous cardiac monitoring. The monitor shows a rate of 80 with ventricular pacing. Imaging/x-ray results per my interpretation: Chest x-ray shows some mild cardiomegaly, no CHF or pneumonia. Chronic Medical/Social conditions affecting care: Advanced age, warfarin use. Care/Management discussed with: Case management and the on-call hospitalist. Level of care consideration(s): After review of the information above and other included data: --I believe the patient requires escalation of care to admission DISPOSITION: Admission Past Med/Surg History Problem List Failure of outpatient treatment (Acute) Elevated brain natriuretic peptide (BNP) level (Acute) Fluid overload (Acute) Weight gain (Acute) Pedal edema (Acute) SOB (shortness of breath) (Acute) Candidiasis of mouth and esophagus Nonobstructive atherosclerosis of coronary artery Hospital-acquired pneumonia Chest pain syndrome Elevated troponin (Acute) Abnormal heart rhythm (Acute) TILLMAN (dyspnea on exertion) (Acute) Chest tightness (Acute) LLL pneumonia (Acute) Community acquired pneumonia Atrial flutter fib/flutter Dyspnea on exertion (Acute) Chest tightness (Acute) Collagenous colitis Immunodeficiency syndrome Situational stress Allergic rhinitis with postnasal drip Asthma Osteoarthritis, knee Idiopathic polyneuropathy TILLMAN (dyspnea on exertion) Mitral regurgitation ARMIDA (stress urinary incontinence, female) Hypogammaglobulinemia jail current use of anticoagulant therapy (Chronic) Paroxysmal atrial fibrillation (Chronic) Hypertension (Chronic) CLL (chronic lymphocytic leukemia) (Chronic) Chronic lymphocytosis. Cardiac murmur Mild TR and MR noted on 2017 echo. Peptic ulcer disease H/O Tachycardia-bradycardia syndrome (Acute) hx of--reason for pacemaker placement VALORIE (mycobacterium avium-intracellulare) hx 2019 Osteoporosis Medical History SIADH (syndrome of inappropriate ADH production) Pacemaker medtronic dual chamber History of rib fracture (05/25/22) radial, clavicle and rib fractures from fall History of hip fracture (~10/08/21) Pelvis fracture (01/10/23) superior and inferior pubic ramus fracture on the left side>no current issues Abnormal gait Immunodeficiency syndrome Hyponatremia hx-historically run low for years Mycobacterium avium complex Osteoarthritis On anticoagulant therapy xarelto daily Anemia hx of---was receiving IV Iron infusions Migraine H/O Asthma hx of, inh and neb prn Surgical History History of cataract surgery History of permanent cardiac pacemaker placement (~07/07/20) S/P bilateral breast reduction History of bronchoscopy H/O reduction mammoplasty Hx of vaginal hysterectomy History of carpal tunnel release History of repair of rotator cuff History of arthroscopy History of appendectomy History of esophagogastroduodenoscopy (EGD) History of tonsillectomy History of cardiac cath History of colonoscopy Family History Mother Colon cancer Colorectal cancer Uterine cancer Sister Colon cancer Colorectal cancer Father Prostate cancer Stroke Son Family history of reaction to anesthesia Brother Diabetes Brother CLL (chronic lymphocytic leukemia) Denies family history of Ovarian cancer Myocardial infarction Breast cancer Lung cancer Social History Smoking Status: Never smoker Second Hand Exposure: No; Do You Dip or Chew Tobacco: No; Hx Alcohol Use: Yes Alcohol type: wine Alcohol Intake Frequency: Monthly or Less Hx Substance Use: No Preferred Language: Telugu Communication Ability: Effective Visual Impairment: No Limitations Hearing Ability: Normal Easter Bunny Required: No Beliefs That Will Affect Care: None marital status: Current Living Situation: Alone Current Living Situation Comment: dtr will check in on pt. current occupational status: retired How many Children do You have: 4 Feels Safe at Home: Yes Childhood Exposure to Second-Hand Smoke: No caffeine: Yes Dental Care, Regularly: Yes Physical Activity Frequency: 5-6 Times per Week Seatbelt Use: always Sunscreen Use: Yes Assistive Devices: Cane and Walker Allergies Allergies Allergy/AdvReac Type Severity Reaction Status Date / Time mold Allergy Intermediate SOB, Verified 07/08/25 14:32 itchy, watery eyes cat dander Allergy Mild itchy, Verified 07/08/25 14:32 watery eyes chlorthalidone Allergy Mild Dizzy, Verified 07/08/25 14:32 light headed chocolate flavor Allergy Mild Gastrointestinal Verified 07/08/25 14:32 Upset gluten Allergy Mild Gastrointestinal Verified 07/08/25 14:32 Upset dabigatran etexilate AdvReac Intermediate SKIN PEELS Verified 07/08/25 14:32 [From Pradaxa] erythromycin base AdvReac Intermediate NAUSEA / Verified 07/08/25 14:32 VOMITING lactose AdvReac Mild GI SYMPTOMS Verified 07/08/25 14:32 Home Meds Home Medications Medication Instructions Recorded Confirmed cetirizine 10 mg tablet (Zyrtec) 10 mg PO QPM 07/05/20 07/19/25 immune glob,gamma (IgG) 10 25 g IV .4-6WEEKS 07/05/20 07/19/25 %-gly-IgA over 50 mcg/mL injection solution (Gammagard Liquid) prochlorperazine maleate 10 mg 10 mg PO Q6H PRN Nausea 07/05/20 07/19/25 tablet vitamin B complex 1 cap PO QAM 07/05/20 07/19/25 Lactobacillus acidophilus 10 10,000 mmu cells PO QAM 09/12/20 07/19/25 billion cell capsule (Probiotic) ascorbate calcium (vitamin C) 814 400 mg PO QAM 11/30/20 07/19/25 mg/gram oral powder (Vitamin C (ascorbate calcium)) [id number] carb-vit K 1 tab PO QAM 10/08/21 07/19/25 18 mg iron-400 mcg-500 mg tablet (One-A-Day Womens Formula) albuterol 90 mcg-budesonide 80 2 inh inhalation 6XD PRN Shortness 05/25/25 07/19/25 mcg/actuation HFA aerosol inhaler Of Breath Or Wheezing (Airsupra) montelukast 10 mg tablet 10 mg PO DAILY 05/26/25 07/19/25 (Singulair) calcium 400 mg 1 tab PO 3XWK 06/02/25 07/19/25 (carbonate)-magnesium 167 mg (oxide)-D3 133 unit tablet (Calcium Magnesium plus D) sodium chloride 7 % for 1 inh inhalation BID PRN 06/06/25 07/19/25 nebulization DIRECTED warfarin 5 mg tablet 5 mg PO QPM 06/06/25 07/19/25 Previous Rx's Medication Instructions Recorded acetaminophen 325 mg tablet 650 mg (2 x 325 mg) PO Q4H PRN 10/11/21 pain #30 tabs ipratropium 0.5 mg-albuterol 3 mg 3 ml inhalation QID PRN Shortness 12/09/23 (2.5 mg base)/3 mL nebulization Of Breath Or Wheezing #180 mL soln denosumab 60 mg/mL subcutaneous 60 mg subcut ONCE #1 mL 04/27/24 syringe (Prolia) flecainide 100 mg tablet 100 mg PO Q12H #180 tabs 12/23/24 sertraline 100 mg tablet 100 mg PO DAILY #90 tabs 02/02/25 metoprolol succinate 50 mg 100 mg (2 x 50 mg) PO QPM #180 tabs 06/06/25 tablet,extended release 24 hr benzonatate 100 mg capsule 100 - 200 mg (1 - 2 x 100 mg) PO 06/11/25 TID PRN cough #30 caps omeprazole 20 mg capsule,delayed 20 mg PO QAM #30 caps 06/11/25 release lorazepam 0.5 mg tablet 0.5 mg PO Q8H PRN anxiety #30 tabs 06/14/25 zolpidem 5 mg tablet 5 mg PO HS PRN insomnia #15 tabs 06/14/25 budesonide-formoterol HFA 160 1 inh inhalation BID #10.2 grams 06/17/25 mcg-4.5 mcg/actuation aerosol inhaler furosemide 20 mg tablet 20 - 40 mg (1 - 2 x 20 mg) PO 06/25/25 DIRECTED #0 tabs potassium chloride 10 mEq 10 meq PO DAILY #0 tabs 06/25/25 tablet,extended release Results & Data (ED) Vital Signs Vital Signs - 24 hr 07/19/25 10:51 07/19/25 11:56 07/19/25 12:31 Temperature 36.4 C L Temperature Source Temporal Artery Scan Pulse Rate 80 87 Pulse Rate [Apical] Pulse Rate from SpO2 Sensor Pulse Rhythm [Apical] Pulse Strength [Apical] Respiratory Rate 20 Respiratory Effort / Characteristics Non-Labored Spontaneous Respiratory Depth Normal Respiratory Pattern Blood Pressure 151/89 H Blood Pressure [Right Arm] Blood Pressure Mean 109 Blood Pressure Mean [Right Arm] Blood Pressure Position [Right Arm] Pulse Oximetry 96 98 Oxygen Delivery Method Room Air Room Air Sepsis Recent Fever Within 48 Hours No Sepsis New/Unexplained Change in Mental Status N/A Sepsis Action Taken by Nursing No Action Required 07/19/25 12:57 07/19/25 14:00 07/19/25 14:33 Temperature Temperature Source Pulse Rate 84 Pulse Rate [Apical] 86 89 Pulse Rate from SpO2 Sensor 83 Pulse Rhythm [Apical] Regular Pulse Strength [Apical] Respiratory Rate 22 18 17 Respiratory Effort / Characteristics Non-Labored Spontaneous Respiratory Depth Normal Respiratory Pattern Regular Blood Pressure 116/73 Blood Pressure [Right Arm] 156/87 H 136/92 Blood Pressure Mean 87 Blood Pressure Mean [Right Arm] 110 106 Blood Pressure Position [Right Arm] Semi-fowlers Pulse Oximetry 99 97 96 Oxygen Delivery Method Room Air Room Air Room Air Sepsis Recent Fever Within 48 Hours Sepsis New/Unexplained Change in Mental Status Sepsis Action Taken by Nursing 07/19/25 15:18 07/19/25 16:58 07/19/25 17:01 Temperature Temperature Source Pulse Rate 88 Pulse Rate [Apical] 86 100 H Pulse Rate from SpO2 Sensor Pulse Rhythm [Apical] Regular Pulse Strength [Apical] Normal Respiratory Rate 22 23 16 Respiratory Effort / Characteristics Non-Labored Spontaneous Non-Labored Spontaneous Respiratory Depth Normal Normal Respiratory Pattern Regular Blood Pressure 154/104 H Blood Pressure [Right Arm] 127/76 154/104 H Blood Pressure Mean 120 Blood Pressure Mean [Right Arm] 93 120 Blood Pressure Position [Right Arm] Semi-fowlers Pulse Oximetry 97 97 98 Oxygen Delivery Method Room Air Room Air Room Air Sepsis Recent Fever Within 48 Hours Sepsis New/Unexplained Change in Mental Status Sepsis Action Taken by Long-Term Medications Current Medication List: was personally reviewed by me Laboratory Data Attestation: I reviewed the patient's lab results. 07/19/25 12:31 07/19/25 12:31 Lab Results 07/19/25 07/19/25 07/19/25 Range/Units 11:41 12:31 12:55 WBC 6.25 (4.8-10.8) K/ul RBC 3.51 L (4.20-5.40) M/uL Hgb 10.9 L (12.0-16.0) g/dl Hct 33.4 L (37.0-47.0) % MCV 95.2 (80.0-100.0) fL MCH 31.1 (25.0-34.0) pg MCHC 32.6 (32.0-36.0) g/dL RDW Std Deviation 51.7 H (36.4-46.3) fL RDW Coeff of Imani 14.8 H (11.5-14.5) % Plt Count 242 (130-400) K/uL MPV 9.5 (9.4-12.4) fL Immature Gran % (Auto) 0.5 % Neut % (Auto) 76.1 % Lymph % (Auto) 11.4 % [place] % (Auto) 10.9 % Eos % (Auto) 0.8 % Baso % (Auto) 0.3 % Neut # (Auto) 4.76 (1.40-6.50) K/uL Lymph # (Auto) 0.71 L (1.20-3.40) K/uL [place] # (Auto) 0.68 H (0.11-0.59) K/uL Eos # (Auto) 0.05 (0.00-0.50) K/uL Baso # (Auto) 0.02 (0.00-0.20) K/uL Immature Gran # (Auto) 0.03 (0.01-0.20) K/uL PT 38.5 H (9.0-12.0) Seconds INR 3.9 H (0.9-1.1) APTT 43 H (21-31) Seconds PTT Ratio 1.6 D-Dimer 330 (0-500) ug/L FEU Sodium 133 L (136-145) mmol/L Potassium 4.0 (3.5-5.1) mmol/L Chloride 101 (98-107) mmol/L Carbon Dioxide 28 (21-32) mmol/L Anion Gap 4 (3-11) BUN 19 (6-23) mg/dl Creatinine 0.77 (0.6-1.2) mg/dl Est Cr Clr Drug Dosing 61.1 ml/min eGFR 81.40 BUN/Creatinine Ratio 24.7 H (10-20) Glucose 102 H (70-99(Fasting)) mg/dl Calcium 8.9 (8.6-10.3) mg/dl Magnesium 2.0 (1.7-2.4) mg/dl Total Bilirubin 0.5 (0.2-1.0) mg/dl AST 37 (13-39) U/L ALT 48 (7-52) U/L Alkaline Phosphatase 45 (34-104) U/L Troponin I High Sens 13.9 (0-14) pg/ml B-Natriuretic Peptide 488 H (0-100) pg/ml Total Protein 6.3 (6.0-8.3) gm/dl Albumin 3.8 (3.4-5.0) gm/dl Globulin 2.5 (2.5-4.0) gm/dl Albumin/Globulin Ratio 1.5 (0.9-2) Procalcitonin (0-0.5) ng/ml TSH 1.551 (0.300-4.500) uIu/ml Free T3 (2.3-4.2) pg/ml Urine Color Yellow Urine Appearance Clear (Clear) Urine pH 6.0 (4.5-7.5) Ur Specific [place] 1.012 (1.000-1.030) Urine Protein Negative (Negative) Urine Glucose (UA) Negative (Negative) Urine Ketones Negative (Negative) Urine Blood Negative (Negative) Urine Nitrite Negative (Negative) Urine Bilirubin Negative (Negative) Urine Urobilinogen Negative (Negative) Ur Leukocyte Esterase Negative (Negative) Urine Comment Nasal Screen MRSA (PCR) (Negative) Adenovirus (PCR) Not Detected (NotDetected) B. pertussis DNA (PCR) Not Detected (NotDetected) B.parapertussis DNA PCR Not Detected (NotDetected) C. pneumoniae DNA (PCR) Not Detected (NotDetected) Coronavirus OC43 (PCR) Not Detected (NotDetected) Coronavirus HKU1 (PCR) Not Detected (NotDetected) Coronavirus 229E (PCR) Not Detected (NotDetected) SARS-CoV-2 (PCR) Not Detected (NotDetected) Coronavirus NL63 (PCR) Not Detected (NotDetected) Human Metapneumovir PCR Not Detected (NotDetected) Influenza Type A (PCR) Not Detected (NotDetected) Influenza Type B (PCR) Not Detected (NotDetected) M. pneumoniae (PCR) Not Detected (NotDetected) Parainfluenza 1 (PCR) Not Detected (NotDetected) Parainfluenza 2 (PCR) Not Detected (NotDetected) Parainfluenza 3 (PCR) Not Detected (NotDetected) Parainfluenza 4 (PCR) Not Detected (NotDetected) RSV (PCR) Not Detected (NotDetected) Entero/Rhino (PCR) Not Detected (NotDetected) 07/19/25 07/19/25 Range/Units 14:52 Unknown WBC (4.8-10.8) K/ul RBC (4.20-5.40) M/uL Hgb (12.0-16.0) g/dl Hct (37.0-47.0) % MCV (80.0-100.0) fL MCH (25.0-34.0) pg MCHC (32.0-36.0) g/dL RDW Std Deviation (36.4-46.3) fL RDW Coeff of Imani (11.5-14.5) % Plt Count (130-400) K/uL MPV (9.4-12.4) fL Immature Gran % (Auto) % Neut % (Auto) % Lymph % (Auto) % [place] % (Auto) % Eos % (Auto) % Baso % (Auto) % Neut # (Auto) (1.40-6.50) K/uL Lymph # (Auto) (1.20-3.40) K/uL [place] # (Auto) (0.11-0.59) K/uL Eos # (Auto) (0.00-0.50) K/uL Baso # (Auto) (0.00-0.20) K/uL Immature Gran # (Auto) (0.01-0.20) K/uL PT (9.0-12.0) Seconds INR (0.9-1.1) APTT (21-31) Seconds PTT Ratio D-Dimer (0-500) ug/L FEU Sodium (136-145) mmol/L Potassium (3.5-5.1) mmol/L Chloride (98-107) mmol/L Carbon Dioxide (21-32) mmol/L Anion Gap (3-11) BUN (6-23) mg/dl Creatinine (0.6-1.2) mg/dl Est Cr Clr Drug Dosing ml/min eGFR BUN/Creatinine Ratio (10-20) Glucose (70-99(Fasting)) mg/dl Calcium (8.6-10.3) mg/dl Magnesium (1.7-2.4) mg/dl Total Bilirubin (0.2-1.0) mg/dl AST (13-39) U/L ALT (7-52) U/L Alkaline Phosphatase (34-104) U/L Troponin I High Sens (0-14) pg/ml B-Natriuretic Peptide (0-100) pg/ml Total Protein (6.0-8.3) gm/dl Albumin (3.4-5.0) gm/dl Globulin (2.5-4.0) gm/dl Albumin/Globulin Ratio (0.9-2) Procalcitonin < 0.02 (0-0.5) ng/ml TSH (0.300-4.500) uIu/ml Free T3 3.20 (2.3-4.2) pg/ml Urine Color Urine Appearance (Clear) Urine pH (4.5-7.5) Ur Specific [place] (1.000-1.030) Urine Protein (Negative) Urine Glucose (UA) (Negative) Urine Ketones (Negative) Urine Blood (Negative) Urine Nitrite (Negative) Urine Bilirubin (Negative) Urine Urobilinogen (Negative) Ur Leukocyte Esterase (Negative) Urine Comment Nasal Screen MRSA (PCR) Negative (Negative) Adenovirus (PCR) (NotDetected) B. pertussis DNA (PCR) (NotDetected) B.parapertussis DNA PCR (NotDetected) C. pneumoniae DNA (PCR) (NotDetected) Coronavirus OC43 (PCR) (NotDetected) Coronavirus HKU1 (PCR) (NotDetected) Coronavirus 229E (PCR) (NotDetected) SARS-CoV-2 (PCR) (NotDetected) Coronavirus NL63 (PCR) (NotDetected) Human Metapneumovir PCR (NotDetected) Influenza Type A (PCR) (NotDetected) Influenza Type B (PCR) (NotDetected) M. pneumoniae (PCR) (NotDetected) Parainfluenza 1 (PCR) (NotDetected) Parainfluenza 2 (PCR) (NotDetected) Parainfluenza 3 (PCR) (NotDetected) Parainfluenza 4 (PCR) (NotDetected) RSV (PCR) (NotDetected) Entero/Rhino (PCR) (NotDetected) Administered Medications Flecainide Acetate (Flecainide Acetate 100 Mg Tablet) 100 mg PO Q12H [facility] Stop: 08/18/25 16:59 Last Admin: 07/19/25 16:44 Dose: 100 mg Documented By: tatiana Fluticasone/Vilanterol (Fluticasone/Vilanterol 200/25mcg 14 Puffs/Inhaler) 1 puffs INH DAILY [facility]; Protocol Stop: 08/18/25 15:44 Last Admin: 07/19/25 17:03 Dose: Not Given Documented By: ANT Montelukast Sodium (Montelukast Sodium 10 Mg Tablet) 10 mg PO DAILY [facility] Stop: 08/18/25 14:59 Last Admin: 07/19/25 16:44 Dose: 10 mg Documented By: tatiana Sertraline HCl (Sertraline Hcl 100 Mg Tablet) 100 mg PO DAILY ARNIE Stop: 08/18/25 14:59 Last Admin: 07/19/25 16:45 Dose: Not Given Documented By: tatiana Discontinued Medications Flecainide Acetate (Flecainide Acetate 100 Mg Tablet) 100 mg PO Q12H ARNIE Stop: 08/18/25 14:59 Last Admin: 07/19/25 16:22 Dose: Not Given Documented By: tatiana Furosemide (Furosemide 40 Mg/4 Ml Vial) 60 mg IV ONE ONE Stop: 07/19/25 12:48 Last Admin: 07/19/25 12:56 Dose: 60 mg Documented By: YENI Ioversol (Optiray 320 100ml) 90 ml IV ONCE ONE Stop: 07/19/25 17:07 Last Admin: 07/19/25 17:07 Dose: 90 ml Documented By: DREW Imaging Data Radiologist's Impression: Chest X-Ray 07/19/25 11:20 XR chest 1V portable HISTORY: 74 years-old Female Dyspnea COMPARISON: 06/22/2025 TECHNIQUE: AP view of the chest FINDINGS: Cardiac silhouette is enlarged. Left subclavian pacer. Atherosclerosis of the aorta. No pneumothorax, pleural effusion, airspace consolidation or pulmonary edema. Degenerative changes of the shoulders and spine. IMPRESSION: Cardiomegaly without acute process. ACT 112: Negative or not required by law. The above report was generated using voice recognition software. It may contain grammatical, syntax or spelling errors. Electronically signed by: Tereso Valle M.D. 07/19/2025 12:20 PM Discharge Plan Visit Data Chief Complaint: Shortness of Breath/Dyspnea Stated Complaint: FLUID RETENTION, SORE THROAT, [place] ED Provider: Henir Ray Discharge Problem: SOB (shortness of breath), Pedal edema, Weight gain, Fluid overload, Elevated brain natriuretic peptide (BNP) level, Failure of outpatient treatment Patient Disposition: Admitted As Inpatient Condition: Fair Forms Stand Alone Forms: [facility] Prescriptions Prescriptions: No Action budesonide-formoterol 160-4.5 mcg/actuation HFA aerosol inhaler 1 inh inhalation BID Qty: 10.2 0RF Airsupra 90-80 mcg/actuation HFA aerosol inhaler 2 inh inhalation 6XD PRN (Reason: Shortness Of Breath Or Wheezing) flecainide 100 mg tablet 100 mg PO Q12H Qty: 180 3RF sertraline 100 mg tablet 100 mg PO DAILY Qty: 90 3RF metoprolol succinate 50 mg tablet extended release 24 hr 100 mg PO QPM Qty: 180 3RF Rx Instructions: TAKE 2 TABLETS BY MOUTH EVERY DAY Prolia 60 mg/mL syringe 60 mg subcut ONCE Qty: 1 1RF montelukast [Singulair] 10 mg tablet 10 mg PO DAILY zolpidem 5 mg tablet 5 mg PO HS PRN (Reason: insomnia) Qty: 15 1RF lorazepam 0.5 mg tablet 0.5 mg PO Q8H PRN (Reason: anxiety) Qty: 30 1RF Rx Instructions: Ongoing therapy Supervising physician Holli Wheeler DO [facility] [phone] [facility] [id number] ipratropium-albuterol 0.5 mg-3 mg(2.5 mg base)/3 mL solution for nebulization 3 ml INHALATION QID PRN (Reason: Shortness Of Breath Or Wheezing) Qty: 180 2RF cetirizine [Zyrtec] 10 mg Tablet 10 mg PO QPM prochlorperazine maleate 10 mg tablet 10 mg PO Q6H PRN (Reason: Nausea) vitamin B complex Capsule 1 cap PO QAM Rx Instructions: 50 mg Gammagard Liquid 10 % Solution 25 g IV .4-6WEEKS Patient Comments: gets an infusion every 6 wks Rx Instructions: Due last week in january. Probiotic 10 billion cell Capsule 10,000 mmu cells PO QAM Vitamin C (ascorbate calcium) 814 mg/gram powder 400 mg PO QAM Calcium Magnesium plus D 400-167-133 mg-mg-unit tablet 1 tab PO 3XWK Rx Instructions: MON, WED, & FRI. One-A-Day Womens Formula 18 mg iron-400 mcg-500 mg Tablet 1 tab PO QAM acetaminophen 325 mg Tablet 650 mg PO Q4H PRN (Reason: pain) Qty: 30 0RF warfarin 5 mg tablet 5 mg PO QPM Hold Instructions: Resume on 06/12/25. sodium chloride 7 % solution for nebulization 1 inh inhalation BID PRN (Reason: DIRECTED) benzonatate 100 mg Capsule 100 - 200 mg PO TID PRN (Reason: cough) Qty: 30 0RF omeprazole 20 mg capsule,delayed release(DR/EC) 20 mg PO QAM Qty: 30 1RF potassium chloride 10 mEq tablet extended release 10 meq PO DAILY Qty: 0 0RF furosemide 20 mg tablet 20 - 40 mg PO DIRECTED Qty: 0 0RF Rx Instructions: 2 tablets every other day, 1 tablet every other day Referrals Referrals: Holli Wheeler DO [Primary Care Provider] - Discharge Problem: Fluid overload Qualifiers: Hypervolemia type: unspecified Qualified Code(s): E87.70 - Fluid overload, unspecified
--- NOTE | 2025-07-19 12:21 | XRay Report ---
XR chest 1V portable HISTORY: 74 years-old Female Dyspnea COMPARISON: 06/22/2025 TECHNIQUE: AP view of the chest FINDINGS: Cardiac silhouette is enlarged. Left subclavian pacer. Atherosclerosis of the aorta. No pneumothorax, pleural effusion, airspace consolidation or pulmonary edema. Degenerative changes of the shoulders a nd spine. IMPRESSION: Cardiomegaly without acute process. ACT 112: Negative or not required by law. The above report was generated using voice recognition software. It may contain grammatical, syntax o r spelling errors. Electronically signed by: Tereso Valle M.D. 07/19/2025 12:20 PM
[2025-07-19 12:50] LABS: Hematocrit (blood only) 33.4 % (37.0-47.0); Hemoglobin 10.9 g/dl (12.0-16.0); Immature Granulocytes # (auto) 0.03 K/uL (0.01-0.20); Immature Granulocytes % (auto) 0.5 %; Mean Corpuscular Hemoglobin 31.1 pg (25.0-34.0); Mean Corpuscular Volume 95.2 fL (80.0-100.0); Platelet Count 242 K/uL (130-400); RDW Standard Deviation 51.7 fL (36.4-46.3); Red Blood Count 3.51 M/uL (4.20-5.40); White Blood Count 6.25 K/ul (4.8-10.8)
[2025-07-19] MEDS: FUROSEMIDE 40 MG/4 ML VIAL IV ONE ×2 (12:56→22:45)
[2025-07-19 13:09] LABS: Chlamydia pneumoniae PCR Not Detected (NotDetected); Coronavirus 229E PCR Not Detected (NotDetected); Coronavirus CoV-2 (COVID19)PCR Not Detected (NotDetected); Coronavirus HKU1 PCR Not Detected (NotDetected); Coronavirus NL63 PCR Not Detected (NotDetected); Coronavirus OC43PCR Not Detected (NotDetected); Human Metapneumovirus PCR Not Detected (NotDetected); Parainfluenza Virus 1 PCR Not Detected (NotDetected); Parainfluenza Virus 2 PCR Not Detected (NotDetected); Parainfluenza Virus 3 PCR Not Detected (NotDetected); Parainfluenza Virus 4 PCR Not Detected (NotDetected); Respiratory Syncytial VirusPCR Not Detected (NotDetected); Rhinovirus/Enterovirus PCR Not Detected (NotDetected)
[2025-07-19 13:19] LABS: Alanine Aminotransferase 48.0 U/L (7-52); Albumin Globulin Ratio 1.5 (0.9-2); Albumin Level 3.8 gm/dl (3.4-5.0); Alkaline Phosphatase 45.0 U/L (34-104); Anion Gap 4.0 (3-11); Bilirubin,Total 0.5 mg/dl (0.2-1.0); Blood Urea Nitrogen 19.0 mg/dl (6-23); Calcium 8.9 mg/dl (8.6-10.3); Carbon Dioxide 28.0 mmol/L (21-32); Chloride 101.0 mmol/L (98-107); Creatinine Clr Calc Pharmacy 61.1 ml/min; Globulin 2.5 gm/dl (2.5-4.0); Glucose 102.0 mg/dl (70-99(Fasting)); Magnesium 2.0 mg/dl (1.7-2.4); Potassium 4.0 mmol/L (3.5-5.1); Sodium 133.0 mmol/L (136-145); Total Protein 6.3 gm/dl (6.0-8.3)
[2025-07-19 13:20] LABS: INR 3.9 (0.9-1.1); Partial Thromboplastin Time 43 Seconds (21-31); Prothrombin Time 38.5 Seconds (9.0-12.0)
[2025-07-19 13:22] LABS: Appearance Urine Clear (Clear); Glucose Urine UA Negative (Negative)
[2025-07-19] MEDS ORDERED: ACETAMINOPHEN 325 MG TAB PO PRN (14:52)
[2025-07-19] MEDS ORDERED: LORazepam 0.5 MG TAB PO PRN (14:57)
[2025-07-19] MEDS ORDERED: ALBUT/IPRATROP 3MG/0.5MG NEB 3 ML VIAL INH PRN (14:57)
[2025-07-19] MEDS ORDERED: ZOLPIDEM TARTRATE 5 MG TAB PO PRN (14:57)
[2025-07-19 15:43] LABS: Thyroid Stimulating Hormone 1.551 uIu/ml (0.300-4.500)
[2025-07-19] MEDS: FLECAINIDE ACETATE 100 MG TABLET PO SCH ×2 (16:22→16:44)
[2025-07-19] MEDS: MONTELUKAST SODIUM 10 MG TABLET PO SCH (16:44)
[2025-07-19] MEDS: SERTRALINE HCL 100 MG TABLET PO SCH (16:45)
[2025-07-19] MEDS: FLUTICASONE/VILANTEROL 200/25MCG 14 PUFFS/INHALER INH SCH (17:03)
[2025-07-19] MEDS: OPTIRAY 320 100ml IV ONE ×2 (17:07→20:21)
--- NOTE | 2025-07-19 17:52 | CT Scan Report ---
EXAMINATION: Soft tissue neck with CLINICAL HISTORY: Bilateral submandibular and neck pain 4 days, supraclavicular swelling x 1 months. PRIORS: None TECHNIQUE: Contiguous axial images were obtained through the soft tissues of the neck with intravenous contrast. Sagittal and coronal reformations are supplied. FINDINGS: Dental amalgam create significant beam hardening artifact greatly diminishing image quality. Allowing for this, the submandibular glands are symmetric in size and configuration. No intra glandular ductal dilatation or regional inflammatory change. No submandibular adenopathy. Base of the tongue and floor of the mouth is normal in appearance, allowing for beam hardening artifact. The uvula and epiglottis have a normal appearance. Oropharynx, hypopharynx are unremarkable. Vocal cords are symmetric. Hyoid bone is normal in appearance. No anterior posterior triangle adenopathy. Parotid glands are symmetric. Muscles of mastication are symmetric and appropriate in appearance. No sinus fluid or mastoid air cell thickening. Allowing for beam-hardening artifact, moderate osseous demineralization is noted. No periapical tooth lucency or fracture identified. No soft tissue swelling adjacent to the mandible. Inferior aspect of the brain is unremarkable. IMPRESSION: No CT evidence of a submandibular gland abnormality, adenopathy or inflammatory change. Given the prolonged length of symptoms, ENT consultation could be considered given the amount of beam-hardening artifact on the current examination. Electronically signed by Claire Rios 07-19-2025 5:50 PM
[2025-07-19 19:20] LABS: T4 Free Thyroxine 1.13 ng/dl (0.61-1.60)
--- NOTE | 2025-07-19 19:51 | History & Physical Report ---
Date of Service July 19, 2025 Assessment & Plan (1) Anasarca: Plan: As above in the History of Present Illness. (2) Supratherapeutic INR: Plan: As above in the History of Present Illness. (3) Demand ischemia: Plan: As above in the History of Present Illness. (4) Chronic hyponatremia: Plan: As above in the History of Present Illness. (5) Normocytic normochromic anemia: Plan: As above in the History of Present Illness. Admission and Anticipated Discharge Date Admission Date: July 19, 2025 History of Present Illness Chief Complaint: "I came to [facility] ER this morning (07/19/2025, 11:00am) because I have had this swelling above my shoulder blades since June 18, 2025 and it hasn't gone away; it does not hurt at all. My face is also a little swollen, and I didn't hit anything. My whole body feels swollen actually. Also, underneath my jaw on both sides, it feels sore since this Friday morning (07/16/2025, 9:00am) and I don't have a sore throat, but my legs feel achy since this Friday morning (07/16/2025, 9:00am and they are more swollen than before as well. I don't know why my body is swelling up. I watch what I eat and I normally weigh anywhere from 172 pounds to 177 pounds. On Friday morning (07/17/2025, 10:00am), I weighed myself and I weighed 182 pounds then. The ER doc said I weigh 184.6 pounds today (07/19/2025, 11:00am). I tried doubling up on my lasix dose from 20mg a day to 40mg a day for the past week as recommended by my heart doctor, Dr. Dhaval Miller, but that didn't help at all. I still gained weight. I also got more short of breath this morning (07/19/2025, 10:00am); I could only walk about 10 feet with my walker before I got short of breath. Normally, I can walk about 30 feet with my walker before I get short of breath. I am not coughing or wheezing at all. My chest doesn't hurt at all. No fevers or chills. No nausea or vomiting. I was in this hospital from 06/06/2025 to 06/11/2025 with an acute asthma exacerbation. I was back in this hospital from 06/19/2025 to 06/25/2025 for pneumonia in my left lower lung and I got antibiotics (e.g., zosyn IV and azithromycin PO x 5 days; followed by discharge to [facility] on 06/25/2025 with levofloxacin 750mg PO daily x 2 tablets on 06/25/2025 and on 06/26/2025). I was then at [facility] from 06/25/2025 to 07/04/2025, and I felt fine when I got back home on 07/04/2025. This swelling above my shoulder blades and the swelling in my face and whole body is strange as is the soreness underneath my jaw on both sides. I also don't know why I am short of breath. My heart doctor, Dr. Dhaval Miller, never ever told me I had heart failure, so how could I have heart failure now? I never had a heart attack before either." Primary Care Provider: Holli Wheeler, DO 74 years old female with PMH of FULL CODE @ home, obesity with BMI 37.4 (height 149.9 cm, weight 83.9 kg), s/p mechanical fall culminating in acute left intertrochanteric hip fracture, s/p left long troch nail (10/09/2021, 11:20am, [facility] Orthopedic Surgeon Dr. Nils Merritt), melanosis coli (as noted on 06/21/2021 pathology report of left and right colonic biopsies, [facility] GI Dr. Matteo Bliss, [facility] Pathologist Dr. Kike Thakkar), collagenous colitis (as noted on 02/03/2024 pathology report of ascending colon biopsy, [facility] GI Dr. Matteo Bliss, [facility] Pathologist Dr. Kike Thakkar), insomnia disorder on zolpidem 5mg PO qhs prn insomnia, major depression on zoloft 100mg PO daily, anxiety disorder on lorazepam 0.5mg PO q8 prn anxiety, SIADH of unclear etiology with baseline Na range, 126-135 mmol/L (06/25/2017 - 07/19/2025), HTN on metoprolol succinate 100mg PO qpm, tachy-luiz syndrome necessitating PPM insertion (2017), paroxysmal AFIB, s/p failed cardioversion, most recently on 09/09/2024, 8:06am ([facility] CARDS Dr. Dhaval Miller), now on metoprolol 100mg PO qpm, flecainide 100mg PO q12, and warfarin 5mg PO qpm, tobacco-naive mi ld intermittent asthma (diagnosed in 2004), never intubated/mechanically ventilated, not on home oxygen or home steroids, maintained on budesonide 160ug - formoterol 4.5 ug/puff, 1 puff PO bid and singulair 10mg PO qpm with current [facility] [place] PULM Dr. Ace Sumner with most recent pulmonary function testing (07/27/2024) revealing non-specific spirometry with no obstructive lung dysfunction, normal TLC with severe decrease in ERV and normal DLCO, decrease in FVC by 540 mL, decrease in FEV 1 x 540 mL, mild decrease in DLCO as well as TLC compared to 08/2023 pulmonary function testing (as per [facility] PULM Dr. Marilu Zuleta), chronic normocytic, normochromic anemia with baseline Hb range, 9.9 - 11.1 g/dL (06/25/2017 - 06/23/2025), chronic lymphocytic leukemia (diagnosed in 2005) no longer on venclexta 100mg PO daily, hypogammaglobulinemia, still on IVIG (e.g., Gammagard liquid 10% gamma globulin infusions 25,000 mg IV q6 weeks since starting in 2018, and last administered on 06/25/2025 @ [facility], and now managed by [facility] Dr. Dylon Lilly), coincident with a diagnosis of infection with VALORIE (Mycobacterium avium intracellulare) with associated quotidian night sweats without fever, and with associated unintentional weight loss in 2019 after starting her first gamma globulin infusion, after having undergone diagnostic bronchoscopy (03/03/2019, 8:35am, revealing the presence of Mycobacterium avium complex, Aspergillus niger, and Saprophytic fungus) with her former [facility] PULM Dr. Peyman Payne, and which was treated successfully with a combination of rifampin 300mg PO daily, ethambutol 800mg PO tiw (with no development of optic neuropathy from ethambutol), azithromycin 500mg PO tiw, and Arikayce 590mg/8.4mL neb daily x 2 years, now in clinical remission, with no evidence of bronchiectasis in RML or lingula (cf., [place] Syndrome), just "calcified mediastinal and hilar lymph nodes consistent with remote granulomatous infection" and "calcified left lower lobe granuloma...considered benign" (as reported on 06/19/2025, 9:56am CTA chest, which also demonstrated "LLL alveolar consolidation"), that formed the basis for patient's most recent hospitalization @ [facility] (06/19/2025 to 06/25/2025) for acute LLL CAP, who comes to [facility] ER on 07/19/2025 with the following complaint: "I came to [facility] ER this morning (07/19/2025, 11:00am) because I have had this swelling above my shoulder blades since June 18, 2025 and it hasn't gone away; it does not hurt at all. My face is also a little swollen, and I didn't hit anything. My whole body feels swollen actually. Also, underneath my jaw on both sides, it feels sore since this Friday morning (07/16/2025, 9:00am) and I don't have a sore throat, but my legs feel achy since this Friday morning (07/16/2025, 9:00am and they are more swollen than before as well. I don't know why my body is swelling up. I watch what I eat and I normally weigh anywhere from 172 pounds to 177 pounds. On Friday morning (07/17/2025, 10:00am), I weighed myself and I weighed 182 pounds then. The ER doc said I weigh 184.6 pounds today (07/19/2025, 11:00am). I tried doubling up on my lasix dose from 20mg a day to 40mg a day for the past week as recommended by my heart doctor, Dr. Dhaval Miller, but that didn't help at all. I still gained weight. I also got more short of breath this morning (07/19/2025, 10:00am); I could only walk about 10 feet with my walker before I got short of breath. Normally, I can walk about 30 feet with my walker before I get short of breath. I am not coughing or wheezing at all. My chest doesn't hurt at all. No fevers or chills. No nausea or vomiting. I was in this hospital from 06/06/2025 to 06/11/2025 with an acute asthma exacerbation. I was back in this hospital from 06/19/2025 to 06/25/2025 for pneumonia in my left lower lung and I got antibiotics (e.g., zosyn IV and azithromycin PO x 5 days; followed by discharge to [facility] on 06/25/2025 with levofloxacin 750mg PO daily x 2 tablets on 06/25/2025 and on 06/26/2025). I was then at [facility] from 06/25/2025 to 07/04/2025, and I felt fine when I got back home on 07/04/2025. This swelling above my shoulder blades and the swelling in my face and whole body is strange as is the soreness underneath my jaw on both sides. I also don't know why I am short of breath. My heart doctor, Dr. Dhaval Miller, never ever told me I had heart failure, so how could I have heart failure now? I never had a heart attack before either." Patient denies antecedent/coincident weight loss, paroxysmal nocturnal dyspnea, orthopnea, platypnea, anosmia, ageusia, hypogeusia, myalgias, rhinorrhea, fevers, chills, diaphoresis, cough, wheeze, sore throat, hemoptysis, chest pains, palpitations, pleurisy, nausea, vomiting, diarrhea, abdominal pain, pelvic pain, hematemesis, hematochezia, melena, hematuria, dysuria, frequency, urgency, flank pain, headaches, dizziness, lightheadedness, visual changes, hearing changes, weakness, falls, syncope, trauma, travel history, sick contacts, or food/drug ingestions novel or new. All other review of systems are reported as negative by the patient on observation date 07/19/2025. In [facility] ER bed #B11B, patient was afebrile @ 36.4 degrees Celsius, HR 80, RR 20, O2 sat 96% on room air, and BP 151/89 (07/19/2025, 11:05am). Exam was noted for generalized edema from the face/cheeks to the supraclavicular regions bilaterally, abdomen (without fluid wave on percussion/auscultation of abdomen), and bilateral lower extremities down to the feet, rated as 2+ pitting edema. No anterior/posterior cervical lymphadenopathy, supraclavicular/infraclavicular lymphadenopathy, axillary adenopathy, epitrochlear adenopathy, or inguinal adenopathy was noted. No plethora of face/neck was noted. No crepitus in the supraclavicular regions was noted. Jugular venous pressure was estimated to be 3 cm above the sternal angle of Duncan, which in turn, is 5 cm above the level of the right atrium. Chest was clear to auscultation and non-tender to palpation. Labs in [facility] ER bed #B11B included: INR 3.9 (07/19/2025, 12:31pm). WBC 6.25, N76 L11 M11 E1, Hb 10.9, MCV 95.2, MCHC 32.6, platelet 242 (07/19/2025, 12:31pm). Lactic acid #1 0.8 mmol/L (07/19/2025, 6:16pm). Lactic acid #2 (07/19/2025, 10:16pm). Procalcitonin #1 < 0.02 ng/mL (07/19/2025, 2:52pm). Na 133, K 4.0, BUN 19, creatinine 0.77, glucose 102, Ca 8.9, Mg 2.0, AST 37, ALT 48, ALK PHOS 45, total bili 0.5 (07/19/2025, 12:31pm). Troponin-I #1 13.9 pg/mL (07/19/2025, 12:31pm). Troponin-I #2 14.8 pg/mL (07/19/2025, 6:16pm). Troponin-I #3 (07/19/2025, 10:16pm). BNP 488 pg/mL (07/19/2025, 12:31pm). TSH 1.551 uIU/mL (07/19/2025, 12:31pm). Free T3 3.20 pg/mL (07/19/2025, 2:52pm). Free T4 1.13 ng/dL (07/19/2025, 6:16pm). U/A (07/19/2025, 12:55pm): clear yellow, LE-, nitrite- BIOFIRE respiratory pathogen PCR panel (07/19/2025, 11:41am) negative Additional testing in [facility] ER bed #B11B included: Portable CXR (07/19/2025, 11:20am): 1. Cardiomegaly. 2. No infiltrate, effusion, pulmonary vascular congestion, or pneumothorax. (by my review). CT soft tissue neck with IV contrast (07/19/2025, 4:54pm): No CT evidence of a submandibular gland abnormality, adenopathy or inflammatory change. Given the prolonged length of symptoms, ENT consultation could be considered given the amount of beam-hardening artifact on the current examination. CT abd/pelvis with IV contrast (07/19/2025, 7:50pm): (evaluate for mass lesion to ascertain why patient has generalized edema from head to toe and now complains of SOB at rest for 1 week, with chronic, intermittent night sweats, and unintentional weight gain of ~5 pounds in the past 1 week). EKG #1 (07/19/2025, 11:00am): V-pacing @ 85, QTC 525 (by my review). EKG #2 (07/19/2025, 10:16pm): Historical testing in [facility] includes: Cardiac catheterization (06/24/2025, 10:17am): Right dominant coronary system Mild nonobstructive disease in the mid right coronary Normal left ventricular filling pressures No aortic stenosis Hemodynamics Rest Ao:: 144/83 mmHg Final Ao: 146/76 mmHg LV: 138/4 mmHg Left ventricular end-diastolic pressure 13 mmHg Recommendations Recommendations: Medical Therapy and/or Counseling (as per CARDS Dr. Dhaval Miller). EKG old (06/20/2025, 6:25am): AFIB @ 91, QTC 430, LAD, no acute ST depressions/elevations (by my review). TTE (06/07/2025, 8:58am): 1. LVEF 50-55%. Normal LV wall thickness. No regional wall motion abnormalities. 2. PPM lead in RV. RV systolic function normal. 3. LA moderately dilated. 4. No . No AR. 5. PV not well visualized. 6. Moderate MR. No MS. 7. Mild TR. No TS. 8. Aortic root and proximal ascending aorta normal. IVC mildly dilated. 9. No pericardial effusion. (as per CARDS Dr. Peyman Perez). CTA chest (06/19/2025, 9:56am): Lungs: Left lower lobe alveolar consolidation consistent with pneumonia. Calcified left lower lobe granuloma is considered benign. Scattered areas of atelectasis and mild pulmonary edema. No pneumothorax or effusion. The central tracheobronchial tree is patent. Heart/Mediastinum: Cardiomegaly. No pericardial effusion. Coronary artery calcifications are present. Small hiatal hernia. No suspicious mediastinal or hilar lymph nodes. Calcified mediastinal and hilar lymph nodes consistent with remote granulomatous infection. Vasculature: No evidence of acute pulmonary embolism within the limitations of contrast timing and respiratory motion artifact. Main pulmonary artery is normal in caliber. No thoracic aortic aneurysm. Mild atherosclerotic vascular disease of the aorta and arch vessels. Soft Tissues: Pacer generator pack within the superior aspect of the ventral left upper chest wall. Soft tissues of the chest wall are otherwise unremarkable. Upper Abdomen: Unremarkable. Bones: No acute osseous abnormality. Degenerative changes of the shoulders and spine. Patient was subsequently placed in OBSERVATION on the hospitalist service @ [facility] on 07/19/2025 with the following diagnoses: 1. Anasarca, most likely due to acute viral syndrome, as suggested by the finding of acute peripheral lymphocytopenia with L% 11% and acute peripheral monocytosis with M% 11% (07/19/2025, 12:31pm); R/O ovarian/uterine CA. R/O recurrent VALORIE infection. 2. Acute supratherapeutic INR 3.9 (07/19/2025, 12:31pm). 3. Acute type II NSTEMI with troponin-I #2 14.8 pg/mL (07/19/2025, 6:16pm). 4. Chronic euvolemic hyponatremia with SIADH of unclear etiology with baseline Na range, 126-135 mmol/L (06/25/2017 - 07/19/2025), here with Na 133 mmol/L (07/19/2025, 12:31pm). 5. Chronic normocytic, normochromic anemia with baseline Hb range, 9.9 - 11.1 g/dL (06/25/2017 - 06/23/2025), here with Hb 10.9 g/dL, MCV 95.2, MCHC 32.6 (07/19/2025, 12:31pm). To address #1, patient received lasix 60mg IV x 1 dose (07/19/2025, 12:56pm) in [facility] ER bed #B11B. Patient will continue with empiric lasix 80mg IV bid x 2 doses (07/19/2025, 9:19am; 07/20/2025, 3:19am) to bring patient's admission weight of 184.6 pounds closer to patient's dry baseline weight range of 172-176 pounds at home, in the next 24 hours or less. In the interim, patient awaits CT abd/pelvis with IV contrast (07/19/2025, 7:50pm): (evaluate for mass lesion to ascertain why patient has generalized edema from head to toe and now complains of SOB at rest for 1 week, with chronic, intermittent night sweats, and unintentional weight gain of ~5 pounds in the past 1 week). Of note, patient has no prior history of CHF and no current stigmata of CHF (e.g., pulse pressure narrowing, jugular venous pressure elevation, or bibasilar crackles) to suggest acute CHF on observation date 07/19/2025. Hence, I have not diagnosed patient with acute CHF on observation date 07/19/2025. Of final note, I have referred patient back to her current [facility] Dr. Ace Sumner for outpatient workup for p ossible recurrent VALORIE infection, as the diagnosis of VALORIE infection is a diagnosis of exclusion, and frequently requires multiple bronchoscopies to make the diagnosis of VALORIE infection. To address #2, patient is being held off her home-scheduled warfarin 5mg PO qpm on observation date 07/19/2025. I will check repeat INR level in the 07/20/2025 am, as patient strives to attain and then maintain a therapeutic INR range of 2.0 to 3.0. To address #3, patient awaits troponin-I #3 (07/19/2025, 10:16pm) and EKG #2 (07/19/2025, 10:16pm). My clinical index of suspicion for acute type I NSTEMI remains low; patient's recent cardiac catheterization (06/24/2025, 10:17am) revealed "mild nonobstructive disease in the mid right coronary" (as per CARDS Dr. Dhaval Miller, who recommended guideline-directed medical therapy, and which consists of metoprolol succinate 100mg PO qpm. Given patient's supratherapeutic INR 3.9 (07/19/2025, 12:31pm), ASA and/or clopidogrel are contra-indicated. Subsequently, I have not started patient on either heparin infusion or lovenox 1mg/kg SQ q12. Moreover, I have not started patient on new accounts banking representative on observation date 07/19/2025. To address #4, patient is being observed. Hold off further Na level testing in order to conserve and preserve patient's karo blood supply, especially as patient reports no mental status changes referrable to chronically low Na level(s). To address #5, patient is being observed. Hold off further Hb level testing in order to conserve and preserve patient's karo blood supply, especially as patient reports no mucosal bleeding (e.g., hemoptysis, hematemesis, hematochezia, melena, epistaxis, petechiae, ecchymosis, hematoma, hematuria, etc.). Allergies Allergy/AdvReac Type Severity Reaction Status Date / Time mold Allergy Intermediate SOB, Verified 07/08/25 14:32 itchy, watery eyes cat dander Allergy Mild itchy, Verified 07/08/25 14:32 watery eyes chlorthalidone Allergy Mild Dizzy, Verified 07/08/25 14:32 light headed chocolate flavor Allergy Mild Gastrointestinal Verified 07/08/25 14:32 Upset gluten Allergy Mild Gastrointestinal Verified 07/08/25 14:32 Upset dabigatran etexilate AdvReac Intermediate SKIN PEELS Verified 07/08/25 14:32 [From Pradaxa] erythromycin base AdvReac Intermediate NAUSEA / Verified 07/08/25 14:32 VOMITING lactose AdvReac Mild GI SYMPTOMS Verified 07/08/25 14:32 Home Medications Medication Instructions Recorded Confirmed Type cetirizine 10 mg tablet (Zyrtec) 10 mg PO QPM 07/05/20 07/19/25 History immune glob,gamma (IgG) 10 25 g IV .4-6WEEKS 07/05/20 07/19/25 History %-gly-IgA over 50 mcg/mL injection solution (Gammagard Liquid) prochlorperazine maleate 10 mg 10 mg PO Q6H PRN Nausea 07/05/20 07/19/25 History tablet vitamin B complex 1 cap PO QAM 07/05/20 07/19/25 History Lactobacillus acidophilus 10 10,000 mmu cells PO QAM 09/12/20 07/19/25 History billion cell capsule (Probiotic) ascorbate calcium (vitamin C) 814 400 mg PO QAM 11/30/20 07/19/25 History mg/gram oral powder (Vitamin C (ascorbate calcium)) [id number] carb-vit K 1 tab PO QAM 10/08/21 07/19/25 History 18 mg iron-400 mcg-500 mg tablet (One-A-Day Womens Formula) acetaminophen 325 mg tablet 650 mg (2 x 325 mg) PO Q4H PRN 10/11/21 07/19/25 Rx pain #30 tabs ipratropium 0.5 mg-albuterol 3 mg 3 ml inhalation QID PRN Shortness 12/09/23 07/19/25 Rx (2.5 mg base)/3 mL nebulization Of Breath Or Wheezing #180 mL soln denosumab 60 mg/mL subcutaneous 60 mg subcut ONCE #1 mL 04/27/24 07/19/25 Rx syringe (Prolia) flecainide 100 mg tablet 100 mg PO Q12H #180 tabs 12/23/24 07/19/25 Rx sertraline 100 mg tablet 100 mg PO DAILY #90 tabs 02/02/25 07/19/25 Rx albuterol 90 mcg-budesonide 80 2 inh inhalation 6XD PRN Shortness 05/25/25 07/19/25 History mcg/actuation HFA aerosol inhaler Of Breath Or Wheezing (Airsupra) montelukast 10 mg tablet 10 mg PO DAILY 05/26/25 07/19/25 History (Singulair) calcium 400 mg 1 tab PO 3XWK 06/02/25 07/19/25 History (carbonate)-magnesium 167 mg (oxide)-D3 133 unit tablet (Calcium Magnesium plus D) metoprolol succinate 50 mg 100 mg (2 x 50 mg) PO QPM #180 tabs 06/06/25 07/19/25 Rx tablet,extended release 24 hr sodium chloride 7 % for 1 inh inhalation BID PRN 06/06/25 07/19/25 History nebulization DIRECTED warfarin 5 mg tablet 5 mg PO QPM 06/06/25 07/19/25 History benzonatate 100 mg capsule 100 - 200 mg (1 - 2 x 100 mg) PO 06/11/25 07/19/25 Rx TID PRN cough #30 caps omeprazole 20 mg capsule,delayed 20 mg PO QAM #30 caps 06/11/25 07/19/25 Rx release lorazepam 0.5 mg tablet 0.5 mg PO Q8H PRN anxiety #30 tabs 06/14/25 07/19/25 Rx zolpidem 5 mg tablet 5 mg PO HS PRN insomnia #15 tabs 06/14/25 07/19/25 Rx budesonide-formoterol HFA 160 1 inh inhalation BID #10.2 grams 06/17/25 07/19/25 Rx mcg-4.5 mcg/actuation aerosol inhaler furosemide 20 mg tablet 20 - 40 mg (1 - 2 x 20 mg) PO 06/25/25 07/19/25 Rx DIRECTED #0 tabs potassium chloride 10 mEq 10 meq PO DAILY #0 tabs 06/25/25 07/19/25 Rx tablet,extended release Past Med/Surg History Problem List (Updated 07/19/25 @ 21:36 by Ramiro Adler MD, PhD) Normocytic normochromic anemia Chronic hyponatremia Demand ischemia Supratherapeutic INR Anasarca Failure of outpatient treatment (Acute) Elevated brain natriuretic peptide (BNP) level (Acute) Fluid overload (Acute) Weight gain (Acute) Pedal edema (Acute) SOB (shortness of breath) (Acute) Candidiasis of mouth and esophagus Nonobstructive atherosclerosis of coronary artery Hospital-acquired pneumonia Chest pain syndrome Elevated troponin (Acute) Abnormal heart rhythm (Acute) TILLMAN (dyspnea on exertion) (Acute) Chest tightness (Acute) LLL pneumonia (Acute) Community acquired pneumonia Atrial flutter fib/flutter Dyspnea on exertion (Acute) Chest tightness (Acute) Collagenous colitis Immunodeficiency syndrome Situational stress Allergic rhinitis with postnasal drip Asthma Osteoarthritis, knee Idiopathic polyneuropathy TILLMAN (dyspnea on exertion) Mitral regurgitation ARMIDA (stress urinary incontinence, female) 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 Cardiac murmur Mild TR and MR noted on 2017 echo. Peptic ulcer disease H/O Tachycardia-bradycardia syndrome (Acute) hx of--reason for pacemaker placement VALORIE (mycobacterium avium-intracellulare) hx 2019 Osteoporosis Medical History SIADH (syndrome of inappropriate ADH production) Pacemaker medtronic dual chamber History of rib fracture (05/25/22) radial, clavicle and rib fractures from fall History of hip fracture (~10/08/21) Pelvis fracture (01/10/23) superior and inferior pubic ramus fracture on the left side>no current issues Abnormal gait Immunodeficiency syndrome Hyponatremia hx-historically run low for years Mycobacterium avium complex Osteoarthritis On anticoagulant therapy xarelto daily Anemia hx of---was receiving IV Iron infusions Migraine H/O Asthma hx of, inh and neb prn Surgical History History of cataract surgery History of permanent cardiac pacemaker placement (~07/07/20) meditronic dual chamber pacemaker placed @ [facility]--follows with Dr. Miller>next check will be 03/02/24 S/P bilateral breast reduction History of bronchoscopy 02/2019 for evaluation of possible TB. Bronchial washings showed benign findings. 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 miller History of colonoscopy Family History (Updated 07/19/25 @ 20:44 by Ramiro Adler MD, PhD) Mother , at 72 years of age from colon CA, with prior diagnosis of uterine CA. Colon cancer Colorectal cancer Uterine cancer Sister Colon cancer Colorectal cancer Father , at 80 years of age from prostate CA. Prostate cancer Stroke Son Family history of reaction to anesthesia fights when wakes Brother Diabetes Brother CLL (chronic lymphocytic leukemia) Denies family history of Ovarian cancer Myocardial infarction Breast cancer Lung cancer Social History (Updated 07/19/25 @ 20:46 by Ramiro Adler MD, PhD) Smoking Status: Never smoker Second Hand Exposure: No; Do You Dip or Chew Tobacco: No; Hx Alcohol Use: Yes Alcohol type: wine Alcohol Intake Frequency: Monthly or Less Hx Substance Use: No Preferred Language: Armenian Communication Ability: Effective Visual Impairment: No Limitations Hearing Ability: Normal 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 Current Living Situation: Alone Current Living Situation Comment: dtr will check in on pt. current occupational status: retired How many Children do You have: 4 How many Children do You have Comment: 2 sons and 2 daughters, all alive and well. Feels Safe at Home: Yes Childhood Exposure to Second-Hand Smoke: No caffeine: Yes Dental Care, Regularly: Yes Physical Activity Frequency: 5-6 Times per Week Seatbelt Use: always Sunscreen Use: Yes Assistive Devices: Walker Review of Systems Constitutional: As above in the History of Present Illness. Physical Exam Constitutional: General: Comfortable, cooperative, coherent. Wide awake and alert. Not confused, lethargic, or obtunded. Patient speaks in complete, fluent, and articulate sentences without pause, interruption, cough, or wheeze. HEENT: NC/AT. EOMI. PERRL. No nystagmus, gaze paresis, anisocoria, miosis, mydriasis, chemosis, hyphema, scleral injection, conjunctivitis, or pterygium. No otorrhea. No rhinorrhea. No plethora of face/neck. Neck: Supple, no stridor, bruit, or goiter. No crepitus in the supraclavicular regions. Jugular venous pressure is estimated to be 3 cm above the sternal angle of Duncan, which in turn, is 5 cm above the level of the right atrium. Lymph: No anterior/posterior cervical lymphadenopathy, supraclavicular/infraclavicular lymphadenopathy, axilla/epitrochlear/inguinal lymphadenopathy. Chest: Symmetric rise and fall with respirations. Non-tender to palpation. Heart: RRR, S1 and S2. No S3 or S4 summation gallop. No tripartite friction rub. No murmur. Lungs: Clear to auscultation and percussion. No audible expiratory wheeze, egophony, pectoriloquy, increase in tactile fremitus, or flatness/dullness to percussion at the bases. Abd: Soft, non-tender, non-distended. Bowel sounds auscultated in all 4 quadrants. No rebound, guarding, Worley's sign, or organomegaly. Ext: No clubbing or cyanosis. Generalized edema from the face/cheeks to the supraclavicular regions bilaterally, abdomen (without fluid wave on percussion/auscultation of abdomen), and bilateral lower extremities down to the feet, rated as 2+ pitting edema. Skin: No decubitus ulcer or enanthem or exanthem. Neuro: No tremors, tics, or myoclonus. DTR+. 5/5 motor strength in all 4 extremities, both proximally and distally. Urology: No arce catheter. No urethral discharge. Results & Data Results & Data Vital Signs (Past 12 Hours) Vital Signs Temp Pulse Pulse Resp BP BP Pulse Ox 07/19/25 19:30 84 17 107/76 96 07/19/25 18:21 88 14 144/85 H 96 07/19/25 17:01 88 16 154/104 H 98 07/19/25 16:58 100 H 23 154/104 H 97 07/19/25 15:18 86 22 127/76 97 07/19/25 14:33 84 17 116/73 96 07/19/25 14:00 89 18 136/92 97 07/19/25 12:57 86 22 156/87 H 99 07/19/25 12:31 87 07/19/25 11:56 98 07/19/25 10:51 36.4 C L 80 20 151/89 H 96 O2 Del Method 07/19/25 19:30 Room Air 07/19/25 18:21 Room Air 07/19/25 17:01 Room Air 07/19/25 16:58 Room Air 07/19/25 15:18 Room Air 07/19/25 14:33 Room Air 07/19/25 14:00 Room Air 07/19/25 12:57 Room Air 07/19/25 12:31 07/19/25 11:56 Room Air 07/19/25 10:51 Room Air Laboratory Results As above in the History of Present Illness. Diagnostic Findings As above in the History of Present Illness. Medications Administered As above in the History of Present Illness. Code Status & VTE Plan VTE Prophylaxis Plan VTE Prophylaxis will be ordered: No Reason for no VTE drug order: Contraindicated PG Care Time/CCT Total # of Minutes Spent Total Time Spent with Patient: Total time spent is greater than 50% in coordination of care (as documented) at patient's floor/unit and/or counseling patient: Coding Level of Care Code 34399 INT INP/OBS CARE 2/55MIN Diagnoses Anasarca R60.1 Supratherapeutic INR R79.1 Demand ischemia I24.89 Chronic hyponatremia E87.1 Normocytic normochromic anemia D64.9
[2025-07-19] MEDS ORDERED: BUDESONIDE/FORMOTEROL FUMARATE 160/4.5 60 PUFFS/INHALER INH SCH (21:00)
[2025-07-19] MEDS: METOPROLOL SUCC 50MG EXT REL TAB PO SCH (21:04)
--- NOTE | 2025-07-19 21:48 | CT Scan Report ---
Exam(s): CT ABDOMEN + PELVIS With Contrast IV Amt: 90 ml optiray 320 EXAM: CT Abdomen and Pelvis With Intravenous Contrast CLINICAL HISTORY: Reason for exam: generalized edema and SOB; eval for mass lesion. TECHNIQUE: Axial computed tomography images of the abdomen and pelvis with intravenous contrast. CTDI is 26.7 mGy and DLP is 1123 mGy-cm. Automated exposure control was utilized for the study. A dose lowering technique was utilized adhering to the principles of ALARA. CONTRAST: Patient received 90 ml optiray 320 of IV contrast COMPARISON: No relevant prior studies available. FINDINGS: Lung bases: Unremarkable. No mass. No consolidation. Heart: Moderate cardiomegaly with pacing device in place. ABDOMEN: Liver: Unremarkable. No mass. Gallbladder and bile ducts: The gallbladder is contracted with possible trace amount of surrounding edema. No gallstones, biliary duct dilation, or choledocholithiasis identified. Pancreas: Unremarkable. No mass. No ductal dilation. Spleen: Unremarkable. No splenomegaly. Adrenals: Unremarkable. No mass. Kidneys and ureters: There is contrast throughout a nondilated renal collecting system bilaterally as well as a normally distended urinary bladder. Stomach and bowel: Unremarkable. No obstruction. No mucosal thickening. PELVIS: Appendix: No signs of acute appendicitis. Bowel loops are nondilated. No acute inflammatory changes are seen involving the bowel. Bladder: See above. Reproductive: Unremarkable as visualized. ABDOMEN and PELVIS: Intraperitoneal space: The uterus is absent. No free fluid in the pelvis. No free air. Bones/joints: Streak artifact from left hip screw attached to a femur jaspreet. There are mild osteoarthritic changes in both hips. No acute fracture or dislocation is seen. Moderate to severe multilevel degenerative changes throughout the spine including chronic pars defects and grade 1 anterolisthesis of L5 on S1. No acute fracture is identified. Soft tissues: Unremarkable. Vasculature: The abdominal aorta is slightly calcified but nondilated. Lymph nodes: Unremarkable. No enlarged lymph nodes. IMPRESSION: 1. The gallbladder is contracted with possible trace amount of surrounding edema. No gallstones, biliary duct dilation, or choledocholithiasis identified. 2. No signs of acute appendicitis. Bowel loops are nondilated. No acute inflammatory changes are seen involving the bowel. No acute inflammatory process is seen within the abdomen or pelvis. No mass lesion identified. Electronically signed by: Abran Merritt MD 07/19/25 21:47 PM
[2025-07-20] MEDS: FUROSEMIDE 40 MG/4 ML VIAL IV ONE (03:26)
--- NOTE | 2025-07-20 05:52 | Electrocardiogram Report ---
Test Reason : Blood Pressure : */* mmHG Vent. Rate : 85 BPM Atrial Rate : 101 BPM P-R Int : * ms QRS Dur : 202 ms QT Int : 442 ms P-R-T Axes : * -65 107 degrees QTcB Int : 525 ms Ventricular-paced rhythm Abnormal ECG When compared with ECG of 20-Jun-2025 06:25, Ventricular pacing is now present Confirmed by Heriberto Gallo ([id number]) on 07/20/2025 5:51:41 AM Referred By: Confirmed By: Heriberto Gallo
[2025-07-20 08:10] LABS: Hematocrit (blood only) 37.4 % (37.0-47.0); Hemoglobin 12.3 g/dl (12.0-16.0); Immature Granulocytes # (auto) 0.04 K/uL (0.01-0.20); Immature Granulocytes % (auto) 0.9 %; Mean Corpuscular Hemoglobin 30.8 pg (25.0-34.0); Mean Corpuscular Volume 93.7 fL (80.0-100.0); Platelet Count 257 K/uL (130-400); RDW Standard Deviation 50.8 fL (36.4-46.3); Red Blood Count 3.99 M/uL (4.20-5.40); White Blood Count 4.60 K/ul (4.8-10.8)
[2025-07-20 08:27] LABS: Anion Gap 8.0 (3-11); Blood Urea Nitrogen 18.0 mg/dl (6-23); Calcium 8.8 mg/dl (8.6-10.3); Carbon Dioxide 34.0 mmol/L (21-32); Chloride 97.0 mmol/L (98-107); Creatinine Clr Calc Pharmacy 49.8 ml/min; Glucose 96.0 mg/dl (70-99(Fasting)); Potassium 3.5 mmol/L (3.5-5.1); Sodium 139.0 mmol/L (136-145)
[2025-07-20 08:36] LABS: INR 2.8 (0.9-1.1); Prothrombin Time 28.3 Seconds (9.0-12.0)
[2025-07-20] MEDS ORDERED: FLUTICASONE/VILANTEROL 200/25MCG 14 PUFFS/INHALER INH SCH (09:00)
--- NOTE | 2025-07-20 14:01 | Discharge Summary ---
Discharge Summary Date of Service July 20, 2025 Principal Dx & Hospital Course #1 = Principal Diagnosis (1) Anasarca: As below in the Admission History of Present Illness. (2) Supratherapeutic INR: As below in the Admission History of Present Illness. (3) Demand ischemia: As below in the Admission History of Present Illness. (4) Chronic hyponatremia: As below in the Admission History of Present Illness. (5) Normocytic normochromic anemia: As below in the Admission History of Present Illness. Admission HPI Per Admitting Provider 74 years old female with PMH of FULL CODE @ home, obesity with BMI 37.4 (height 149.9 cm, weight 83.9 kg), s/p mechanical fall culminating in acute left intertrochanteric hip fracture, s/p left long troch nail (10/09/2021, 11:20am, [facility] Orthopedic Surgeon Dr. Nils Merritt), me lanosis coli (as noted on 06/21/2021 pathology report of left and right colonic biopsies, [facility] GI Dr. Matteo Bliss, [facility] Pathologist Dr. Kike Thakkar), collagenous colitis (as noted on 02/03/2024 pathology report of ascending colon biopsy, [facility] GI Dr. Matteo Bliss, [facility] Pathologist Dr. Kike Thakkar), insomnia disorder on zolpidem 5mg PO qhs prn insomnia, major depression on zoloft 100mg PO daily, anxiety disorder on lorazepam 0.5mg PO q8 prn anxiety, SIADH of unclear etiology with baseline Na range, 126-135 mmol/L (06/25/2017 - 07/19/2025), HTN on metoprolol succinate 100mg PO qpm, tachy-luiz syndrome necessitating PPM insertion (2017), paroxysmal AFIB, s/p failed cardioversion, most recently on 09/09/2024, 8:06am ([facility] CARDS Dr. Dhaval Miller), now on metoprolol 100mg PO qpm, flecainide 100mg PO q12, and warfarin 5mg PO qpm, tobacco-naive mild intermittent asthma (diagnosed in 2004), never intubated/mechanically ventilated, not on home oxygen or home steroids, maintained on budesonide 160ug - formoterol 4.5 ug/puff, 1 puff PO bid and singulair 10mg PO qpm with current [facility] PULM Dr. Ace Sumner with most recent pulmonary function testing (07/27/2024) revealing non-specific spirometry with no obstructive lung dysfunction, normal TLC with severe decrease in ERV and normal DLCO, decrease in FVC by 540 mL, decrease in FEV 1 x 540 mL, mild decrease in DLCO as well as TLC compared to 08/2023 pulmonary function testing (as per [facility] PULM Dr. 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 Dylon Lilly), coincident with a diagnosis of infection with VALORIE (Mycobacterium avium intracellulare) with associated quotidian night sweats without fever, and with associated unintentional weight loss in 2018 after starting her first gamma globulin infusion, after having undergone diagnostic bronchoscopy (03/03/2019, 8:35am, revealing the presence of Mycobacterium avium complex, Aspergillus niger, and Saprophytic fungus) with her former [facility] PULM Dr. Peyman Payne, and which was treated successfully with a combination of rifampin 300mg PO daily, ethambutol 800mg PO tiw (with no development of optic neuropathy from ethambutol), azithromycin 500mg PO tiw, and Arikayce 590mg/8.4mL neb daily x 2 years, now in clinical remission, with no evidence of bronchiectasis in RML or lingula (cf., [place] Syndrome), just "calcified mediastinal and hilar lymph nodes consistent with remote granulomatous infection" and "calcified left lower lobe granuloma...considered benign" (as reported on 06/19/2025, 9:56am CTA chest, which also demonstrated "LLL alveolar consolidation"), that formed the basis for patient's most recent hospitalization @ [facility] (06/19/2025 to 06/25/2025) for acute LLL CAP, who comes to [facility] ER on 07/19/2025 with the following complaint: "I came to [facility] ER this morning (07/19/2025, 11:00am) because I have had this swelling above my shoulder blades since June 18, 2025 and it hasn't gone away; it does not hurt at all. My face is also a little swollen, and I didn't hit anything. My whole body feels swollen actually. Also, underneath my jaw on both sides, it feels sore since this Friday morning (07/16/2025, 9:00am) and I don't have a sore throat, but my legs feel achy since this Friday morning (07/16/2025, 9:00am and they are more swollen than before as well. I don't know why my body is swelling up. I watch what I eat and I normally weigh anywhere from 172 pounds to 177 pounds. On Friday morning (07/17/2025, 10:00am), I weighed myself and I weighed 182 pounds then. The ER doc said I weigh 184.6 pounds today (07/19/2025, 11:00am). I tried doubling up on my lasix dose from 20mg a day to 40mg a day for the past week as recommended by my heart doctor, Dr. Dhaval Miller, but that didn't help at all. I still gained weight. I also got more short of breath this morning (07/19/2025, 10:00am); I could only walk about 10 feet with my walker before I got short of breath. Normally, I can walk about 30 feet with my walker before I get short of breath. I am not coughing or wheezing at all. My chest doesn't hurt at all. No fevers or chills. No nausea or vomiting. I was in this hospital from 06/06/2025 to 06/11/2025 with an acute asthma exacerbation. I was back in this hospital from 06/19/2025 to 06/25/2025 for pneumonia in my left lower lung and I got antibiotics (e.g., zosyn IV and azithromycin PO x 5 days; followed by discharge to [facility] on 06/25/2025 with levofloxacin 750mg PO daily x 2 tablets on 06/25/2025 and on 06/26/2025). I was then at [facility] from 06/25/2025 to 07/04/2025, and I felt fine when I got back home on 07/04/2025. This swelling above my shoulder blades and the swelling in my face and whole body is strange as is the soreness underneath my jaw on both sides. I also don't know why I am short of breath. My heart doctor, Dr. Dhaval Miller, never ever told me I had heart failure, so how could I have heart failure now? I never had a heart attack before either." Patient denies antecedent/coincident weight loss, paroxysmal nocturnal dyspnea, orthopnea, platypnea, anosmia, ageusia, hypogeusia, myalgias, rhinorrhea, fevers, chills, diaphoresis, cough, wheeze, sore throat, hemoptysis, chest pains, palpitations, pleurisy, nausea, vomiting, diarrhea, abdominal pain, pelvic pain, hematemesis, hematochezia, melena, hematuria, dysuria, frequency, urgency, flank pain, headaches, dizziness, lightheadedness, visual changes, hearing changes, weakness, falls, syncope, trauma, travel history, sick contacts, or food/drug ingestions novel or new. All other review of systems are reported as negative by the patient on observation date 07/19/2025. In [facility] ER bed #B11B, patient was afebrile @ 36.4 degrees Celsius, HR 80, RR 20, O2 sat 96% on room air, and BP 151/89 (07/19/2025, 11:05am). Exam was noted for generalized edema from the face/cheeks to the supraclavicular regions bilaterally, abdomen (without fluid wave on percussion/auscultation of abdomen), and bilateral lower extremities down to the feet, rated as 2+ pitting edema. No anterior/posterior cervical lymphadenopathy, supraclavicular/infraclavicular lymphadenopathy, axillary adenopathy, epitrochlear adenopathy, or inguinal adenopathy was noted. No plethora of face/neck was noted. No crepitus in the supraclavicular regions was noted. Jugular venous pressure was estimated to be 3 cm above the sternal angle of Duncan, which in turn, is 5 cm above the level of the right atrium. Chest was clear to auscultation and non-tender to palpation. Labs in [facility] ER bed #B11B included: INR 3.9 (07/19/2025, 12:31pm). WBC 6.25, N76 L11 M11 E1, Hb 10.9, MCV 95.2, MCHC 32.6, platelet 242 (07/19/2025, 12:31pm). Lactic acid #1 0.8 mmol/L (07/19/2025, 6:16pm). Lactic acid #2 0.7 mmol/L (07/19/2025, 10:48pm). Lactic acid #3 0.7 mmol/L (07/20/2025, 7:47am). Procalcitonin #1 < 0.02 ng/mL (07/19/2025, 2:52pm). Procalcitonin #2 < 0.02 ng/mL (07/20/2025, 7:47am). Na 133, K 4.0, BUN 19, creatinine 0.77, glucose 102, Ca 8.9, Mg 2.0, AST 37, ALT 48, ALK PHOS 45, total bili 0.5 (07/19/2025, 12:31pm). Na 139, K 3.5, BUN 18, creatinine 0.92, glucose 96, Ca 8.8 (07/20/2025, 7:47am). Troponin-I #1 13.9 pg/mL (07/19/2025, 12:31pm). Troponin-I #2 14.8 pg/mL (07/19/2025, 6:16pm). Troponin-I #3 13.5 pg/mL (07/19/2025, 10:48pm). BNP #1 488 pg/mL (07/19/2025, 12:31pm). BNP #2 405 pg/mL (07/20/2025, 8:30am). TSH 1.551 uIU/mL (07/19/2025, 12:31pm). Free T3 3.20 pg/mL (07/19/2025, 2:52pm). Free T4 1.13 ng/dL (07/19/2025, 6:16pm). U/A (07/19/2025, 12:55pm): clear yellow, LE-, nitrite- BIOFIRE respiratory pathogen PCR panel (07/19/2025, 11:41am) negative Additional testing in [facility] ER bed #B11B included: Portable CXR (07/19/2025, 11:20am): 1. Cardiomegaly. 2. No infiltrate, effusion, pulmonary vascular congestion, or pneumothorax. (by my review). CT soft tissue neck with IV contrast (07/19/2025, 4:54pm): 1. No CT evidence of a submandibular gland abnormality, adenopathy or inflammatory change. CT abd/pelvis with IV contrast (07/19/2025, 7:50pm): 1. The gallbladder is contracted with possible trace amount of surrounding edema. No gallstones, biliary duct dilation, or choledocholithiasis identified. 2. No signs of acute appendicitis. Bowel loops are nondilated. No acute inflammatory changes are seen involving the bowel. No acute inflammatory process is seen within the abdomen or pelvis. No mass lesion identified. EKG #1 (07/19/2025, 11:00am): V-pacing @ 85, QTC 525, no other interpretation due to V-pacing (by my review). EKG #2 (07/19/2025, 10:11pm): AFIB @ 83, QTC 439, no acute ST depressions/elevations (by my review). Historical testing in [facility] includes: Cardiac catheterization (06/24/2025, 10:17am): Right dominant coronary system Mild nonobstructive disease in the mid right coronary Normal left ventricular filling pressures No aortic stenosis Hemodynamics Rest Ao:: 144/83 mmHg Final Ao: 146/76 mmHg LV: 138/4 mmHg Left ventricular end-diastolic pressure 13 mmHg Recommendations Recommendations: Medical Therapy and/or Counseling (as per CARDS Dr. Dhaval Miller). EKG old (06/20/2025, 6:25am): AFIB @ 91, QTC 430, LAD, no acute ST depressions/elevations (by my review). TTE (06/07/2025, 8:58am): 1. LVEF 50-55%. Normal LV wall thickness. No regional wall motion abnormalities. 2. PPM lead in RV. RV systolic function normal. 3. LA moderately dilated. 4. No . No AR. 5. PV not well visualized. 6. Moderate MR. No MS. 7. Mild TR. No TS. 8. Aortic root and proximal ascending aorta normal. IVC mildly dilated. 9. No pericardial effusion. (as per CARDS Dr. Peyman Perez). CTA chest (06/19/2025, 9:56am): Lungs: Left lower lobe alveolar consolidation consistent with pneumonia. Calcified left lower lobe granuloma is considered benign. Scattered areas of atelectasis and mild pulmonary edema. No pneumothorax or effusion. The central tracheobronchial tree is patent. Heart/Mediastinum: Cardiomegaly. No pericardial effusion. Coronary artery calcifications are present. Small hiatal hernia. No suspicious mediastinal or hilar lymph nodes. Calcified mediastinal and hilar lymph nodes consistent with remote granulomatous infection. Vasculature: No evidence of acute pulmonary embolism within the limitations of contrast timing and respiratory motion artifact. Main pulmonary artery is normal in caliber. No thoracic aortic aneurysm. Mild atherosclerotic vascular disease of the aorta and arch vessels. Soft Tissues: Pacer generator pack within the superior aspect of the ventral left upper chest wall. Soft tissues of the chest wall are otherwise unremarkable. Upper Abdomen: Unremarkable. Bones: No acute osseous abnormality. Degenerative changes of the shoulders and spine. Patient was subsequently placed in OBSERVATION on the hospitalist service @ [facility] on 07/19/2025 with the following diagnoses: 1. Anasarca, most likely due to acute viral syndrome, as suggested by the finding of acute peripheral lymphocytopenia with L% 11% and acute peripheral monocytosis with M% 11% (07/19/2025, 12:31pm); R/O ovarian/uterine CA. R/O recurrent VALORIE infection. 2. Acute supratherapeutic INR 3.9 (07/19/2025, 12:31pm). 3. Acute type II NSTEMI with troponin-I #2 14.8 pg/mL (07/19/2025, 6:16pm). 4. Chronic euvolemic hyponatremia with SIADH of unclear etiology with baseline Na range, 126-135 mmol/L (06/25/2017 - 07/19/2025), here with Na 133 mmol/L (07/19/2025, 12:31pm). 5. Chronic normocytic, normochromic anemia with baseline Hb range, 9.9 - 11.1 g/dL (06/25/2017 - 06/23/2025), here with Hb 10.9 g/dL, MCV 95.2, MCHC 32.6 (07/19/2025, 12:31pm). To address #1, patient received lasix 60mg IV x 1 dose (07/19/2025, 12:56pm) in [facility] ER bed #B11B. Patient subsequently received empiric lasix 80mg IV bid x 2 doses (07/19/2025, 10:45pm; 07/20/2025, 3:26am) in [facility] Med-Surg bed #N288-2 to bring patient's admission weight of 184.6 pounds closer to patient's dry baseline weight range of 172-176 pounds at home, in the next 24 hours or less. Patient's weight subsequently decreased from admission weight 83.9 kg = 184.6 pounds to discharge weight 80.0 kg = 176.0 pounds. Patient subsequently reports "I don't feel short of breath anymore. Thank you very much. I peed all night long and now I feel fine. I can go home when my ride arrives at 4pm later today." In addition, patient underwent CT abd/pelvis with IV contrast (07/19/2025, 7:50pm) to evaluate for mass lesion to ascertain why patient has generalized edema from head to toe and now complains of SOB at rest for 1 week, with chronic, intermittent night sweats, and unintentional weight gain of ~5 pounds in the past 1 week), and no mass lesion was present. Of note, patient has no prior history of CHF and no current stigmata of CHF (e.g., pulse pressure narrowing, jugular venous pressure elevation, or bibasilar crackles) to suggest acute CHF on observation date 07/19/2025. Hence, I did not diagnose patient with acute CHF on observation date 07/19/2025. Of final note, I referred patient back to her current [facility] Dr. Ace Sumner for outpatient workup for possible recurrent VALORIE infection, as the diagnosis of VALORIE infection is a diagnosis of exclusion, and frequently requires multiple bronchoscopies to make the diagnosis of VALORIE infection. To address #2, patient did not receive her home-scheduled warfarin 5mg PO qpm on observation date 07/19/2025 given an acute supratherapeutic INR 3.9 (07/19/2025, 12:31pm). Patient's INR level decreased to 2.8 (07/20/2025, 7:47am), and hence, patient was advised to resume her home-scheduled warfarin 5mg PO qpm on hospital discharge back to her home on 07/20/2025, 4:00pm. Patient was advised to follow up with her PCP Dr. Holli Wheeler within 5-7 days of hospital discharge for routine follow up visit and repeat INR testing within 5-7 days of hospital discharge, as patient strives to maintain a therapeutic INR range of 2.0 to 3.0 to prophylax against thrombo-embolism in the setting of paroxysmal AFIB given CHADS2-VASC score = 3 points (e.g., 1 point for age 65-74 years, 1 point for female sex, and 1 point for HTN). To address #3, patient demonstrated nominal elevation in troponin-I levels (see below): cf., Troponin-I #1 13.9 pg/mL (07/19/2025, 12:31pm). cf.,Troponin-I #2 14.8 pg/mL (07/19/2025, 6:16pm). cf.,Troponin-I #3 13.5 pg/mL (07/19/2025, 10:48pm). cf.,EKG #1 (07/19/2025, 11:00am): V-pacing @ 85, QTC 525, no other inte rpretation due to V-pacing (by my review). cf.,EKG #2 (07/19/2025, 10:11pm): AFIB @ 83, QTC 439, no acute ST depressions/elevations (by my review). Subsequently, my clinical index of suspicion for acute type I NSTEMI remains low; patient's recent cardiac catheterization (06/24/2025, 10:17am) revealed "mild nonobstructive disease in the mid right coronary" (as per CARDS Dr. Dhaval Miller, who recommended guideline-directed medical therapy, and which consists of metoprolol succinate 100mg PO qpm. Given patient's supratherapeutic INR 3.9 (07/19/2025, 12:31pm), ASA and/or clopidogrel are contra-indicated. Subsequently, I did not start the patient on either heparin infusion or lovenox 1mg/kg SQ q12. Moreover, I did not start the patient on clinical research monitor on observation date 07/19/2025. To address #4, patient was observed as patient's Na level actually increased from 133 mmol/L (07/19/2025, 12:31pm) to 139 mmol/L (07/20/2025, 7:47am), most likely as a result of free water diuresis effected by lasix 60mg IV x 1 dose (07/19/2025, 12:56pm) in [facility] ER bed #B11B and lasix 80mg IV bid x 2 doses (07/19/2025, 10:45pm; 07/20/2025, 3:26am) in [facility] Med-Surg bed #N288-2. To address #5, patient was observed as patient's Hb level actually increased from 10.9 g/dL (07/19/2025, 12:31pm) to 12.3 g/dL (07/20/2025, 7:47am), most likely as a result of free water diuresis effected by lasix 60mg IV x 1 dose (07/19/2025, 12:56pm) in [facility] ER bed #B11B and lasix 80mg IV bid x 2 doses (07/19/2025, 10:45pm; 07/20/2025, 3:26am) in [facility] Med-Surg bed #N288-2. Of note, patient reported no mucosal bleeding (e.g., hemoptysis, hematemesis, hematochezia, melena, epistaxis, petechiae, ecchymosis, hematoma, hematuria, etc.) while in [facility] from observation date 07/19/2025 to discharge date 07/20/2025. Patient was subsequently discharged back to her home on 07/20/2025 with no more complaints of SOB/TILLMAN or generalized edema after having received lasix 60mg IV x 1 dose (07/19/2025, 12:56pm) in [facility] ER bed #B11B and lasix 80mg IV bid x 2 doses (07/19/2025, 10:45pm; 07/20/2025, 3:26am) in [facility] Med-Surg bed #N288-2. Discharge Exam Constitutional General: Comfortable, cooperative, coherent. Wide awake and alert. Not confused, lethargic, or obtunded. Patient speaks in complete, fluent, and articulate sentences without pause, interruption, cough, or wheeze. HEENT: NC/AT. EOMI. PERRL. No nystagmus, gaze paresis, anisocoria, miosis, mydriasis, chemosis, hyphema, scleral injection, conjunctivitis, or pterygium. No otorrhea. No rhinorrhea. No plethora of face/neck. Neck: Supple, no stridor, bruit, or goiter. No crepitus in the supraclavicular regions. Jugular venous pressure is estimated to be 3 cm above the sternal angle of Duncan, which in turn, is 5 cm above the level of the right atrium. Lymph: No anterior/posterior cervical lymphadenopathy, supraclavicular/infraclavicular lymphadenopathy, axilla/epitrochlear/inguinal lymphadenopathy. Chest: Symmetric rise and fall with respirations. Non-tender to palpation. Heart: RRR, S1 and S2. No S3 or S4 summation gallop. No tripartite friction rub. No murmur. Lungs: Clear to auscultation and percussion. No audible expiratory wheeze, egophony, pectoriloquy, increase in tactile fremitus, or flatness/dullness to percussion at the bases. Abd: Soft, non-tender, non-distended. Bowel sounds auscultated in all 4 quadrants. No rebound, guarding, Worley's sign, or organomegaly. Ext: No clubbing or cyanosis. Generalized edema from the face/cheeks to the supraclavicular regions bilaterally, abdomen (without fluid wave on per cussion/auscultation of abdomen), and bilateral lower extremities down to the feet, rated as 2+ pitting edema on admission date 07/19/2025 and subsequently rated as trace pitting edema on discharge date 07/20/2025. Skin: No decubitus ulcer or enanthem or exanthem. Neuro: No tremors, tics, or myoclonus. DTR+. 5/5 motor strength in all 4 extremities, both proximally and distally. Urology: No arce catheter. No urethral discharge. Discharge Plan Discharge Items Patient Disposition: Home - Self-Care Reason For Visit: SHORTNESS OF BREATH Discharge Diagnosis: 1. Anasarca, most likely due to acute viral syndrome, as suggested by the finding of acute peripheral lymphocytopenia with admission L% 11% and acute peripheral monocytosis with M% 11% (07/19/2025, 12:31pm); discharge L% 20.7%, M% 13% (07/20/2025, 7:47am); s/p R/O ovarian/uterine CA. R/O recurrent VALORIE infection. 2. Acute supratherapeutic INR 3.9 (07/19/2025, 12:31pm); discharge INR 2.8 (07/20/2025, 7:47am). 3. Acute type II NSTEMI with troponin-I #2 14.8 pg/mL (07/19/2025, 6:16pm); discharge troponin-I #2 13.5 pg/mL (07/19/2025, 10:48pm). 4. Chronic euvolemic hyponatremia with SIADH of unclear etiology with baseline Na range, 126-135 mmol/L (06/25/2017 - 07/19/2025), here with admission Na 133 mmol/L (07/19/2025, 12:31pm); discharge Na 139 mmol/L (07/20/2025, 7:47am). 5. Chronic normocytic, normochromic anemia with baseline Hb range, 9.9 - 11.1 g/dL (06/25/2017 - 06/23/2025), here with admission Hb 10.9 g/dL, MCV 95.2, MCHC 32.6 (07/19/2025, 12:31pm); discharge Hb 12.3 g/dL, MCV 93.7, MCHC 32.9 (07/20/2025, 7:47am). Condition on Discharge: Fair Lifting: Gradually increase as tolerated Bathing: No limitations Exercise/Sports: Gradually increase as tolerated Driving/Machine Use: No limitations Weightbearing: Full weightbearing Non-emergency contact: Primary Care Provider Call non-emergency contact if: you have any medication questions Follow-up/Referrals: Holli Wheeler, [Primary Care Provider] - Diet: Heart Healthy Addtl Attending Provider Instructions: See your PCP Dr. Holli Wheeler within 5-7 days of hospital discharge for routine, follow up visit including routine INR testing (with INR goal of 2.0 to 3.0) as you continue to take coumadin 5mg PO daily to prophylax against thrombo- embolism in the setting of paroxysmal AFIB. Pending Studies at Discharge: Yes Stand-Alone Forms: My [facility], Smoking Cessation Medications and DC Order Prescriptions: Continued budesonide-formoterol 160-4.5 mcg/actuation HFA aerosol inhaler 1 inh inhalation BID Qty: 10.2 0RF Airsupra 90-80 mcg/actuation HFA aerosol inhaler 2 inh inhalation 6XD PRN (Reason: Shortness Of Breath Or Wheezing) flecainide 100 mg tablet 100 mg PO Q12H Qty: 180 3RF sertraline 100 mg tablet 100 mg PO DAILY Qty: 90 3RF metoprolol succinate 50 mg tablet extended release 24 hr 100 mg PO QPM Qty: 180 3RF Rx Instructions: TAKE 2 TABLETS BY MOUTH EVERY DAY Prolia 60 mg/mL syringe 60 mg subcut ONCE Qty: 1 1RF montelukast [Singulair] 10 mg tablet 10 mg PO DAILY zolpidem 5 mg tablet 5 mg PO HS PRN (Reason: insomnia) Qty: 15 1RF lorazepam 0.5 mg tablet 0.5 mg PO Q8H PRN (Reason: anxiety) Qty: 30 1RF Rx Instructions: Ongoing therapy Supervising physician Holli Martinezleonela DO [place] [phone] STEVIE [id number] ipratropium-albuterol 0.5 mg-3 mg(2.5 mg base)/3 mL solution for nebulization 3 ml INHALATION QID PRN (Reason: Shortness Of Breath Or Wheezing) Qty: 180 2RF cetirizine [Zyrtec] 10 mg Tablet 10 mg PO QPM prochlorperazine maleate 10 mg tablet 10 mg PO Q6H PRN (Reason: Nausea) vitamin B complex Capsule 1 cap PO QAM Rx Instructions: 50 mg Gammagard Liquid 10 % Solution 25 g IV .4-6WEEKS Patient Comments: gets an infusion every 6 wks Rx Instructions: Due last week in january. Probiotic 10 billion cell Capsule 10,000 mmu cells PO QAM Vitamin C (ascorbate calcium) 814 mg/gram powder 400 mg PO QAM Calcium Magnesium plus D 400-167-133 mg-mg-unit tablet 1 tab PO 3XWK Rx Instructions: MON, WED, & FRI. One-A-Day Womens Formula 18 mg iron-400 mcg-500 mg Tablet 1 tab PO QAM acetaminophen 325 mg Tablet 650 mg PO Q4H PRN (Reason: pain) Qty: 30 0RF warfarin 5 mg tablet 5 mg PO QPM Hold Instructions: Resume on 06/12/25. sodium chloride 7 % solution for nebulization 1 inh inhalation BID PRN (Reason: DIRECTED) benzonatate 100 mg Capsule 100 - 200 mg PO TID PRN (Reason: cough) Qty: 30 0RF omeprazole 20 mg capsule,delayed release(DR/EC) 20 mg PO QAM Qty: 30 1RF potassium chloride 10 mEq tablet extended release 10 meq PO DAILY Qty: 0 0RF furosemide 20 mg tablet 20 - 40 mg PO DIRECTED Qty: 0 0RF Rx Instructions: 2 tablets every other day, 1 tablet every other day Discharge Orders: Discharge Order (Routine); Ordered 07/20/25 Ordered By: Ramiro Adler Admission Data Admit Date/Time: 07/19/25 14:52 Attending Provider: Ramiro Adler Admit Provider: Ramiro Adler Primary Care Provider: Holli Wheeler Other Providers: Zoran Dangelo Hospital Stay Data Consultations 07/19/25 14:18 ED Decision to Admit Stat Diagnostic Imagining Performed 07/19/25 16:54 CT soft tissue neck w con Stat 07/19/25 19:50 CT Abd and Pelvis [CT abd pelvis IV con only] Urgent Pending Results Patient Have Any Pending Studies at Discharge: Yes Discharge Instructions Given to Patient (Per Discharging Provider) See your PCP Dr. Holli Wheeler within 5-7 days of hospital discharge for routine, follow up visit including routine INR testing (with INR goal of 2.0 to 3.0) as you continue to take coumadin 5mg PO daily to prophylax against thrombo- embolism in the setting of paroxysmal AFIB. Total Time Total Time Spent Total Time Spent (In Minutes): 35 minutes. Of this time period, 19 minutes were spent in coordinating patient's discharge. Coding Level of Care Code 02087 INP/OBS DISCH >30 MIN Diagnoses Anasarca R60.1 Supratherapeutic INR R79.1 Demand ischemia I24.89 Chronic hyponatremia E87.1 Normocytic normochromic anemia D64.9
[2025-07-20 15:22] VITALS: BP 132/80; PULSE 91; RESP 18; TEMP 98.8; O2SAT 93
--- NOTE | 2025-07-21 05:44 | Electrocardiogram Report ---
Test Reason : Blood Pressure : */* mmHG Vent. Rate : 83 BPM Atrial Rate : * BPM P-R Int : * ms QRS Dur : 98 ms QT Int : 374 ms P-R-T Axes : * -42 -57 degrees QTcB Int : 439 ms Atrial fibrillation Left axis deviation Minimal voltage criteria for LVH, may be normal variant ( Kraig product ) Nonspecific T wave abnormality Abnormal ECG When compared with ECG of 19-Jul-2025 11:00, Ventricular pacing is no longer present Confirmed by Heriberto Gallo ([id number]) on 07/21/2025 5:44:27 AM Referred By: REFERRED SELF Confirmed By: Heriberto Gallo
== END 2025-07-20 16:40 | disposition home or self-care (01) ==
LOC: ED 10:41 → EDINP 10:41 → 2N 21:28